=== PATIENT | male | born 1950 | race American Indian/Alaskan Native ===

== ENCOUNTER 2017-01-19 12:38 | Inpatient (IN) | payer MEDICARE, MEDICAID ==
[2017-01-19 12:39] VITALS: BMI 33.9
[2017-01-19] MEDS ORDERED: Sodium Chloride 0.9% 500 ML IV STA (15:18)
[2017-01-19 16:07] LABS: CHLORIDE 88 mmol/L (98-107); SODIUM 129 mmol/L (132-148)
[2017-01-19 16:08] LABS: POTASSIUM 4.7 mmol/L (3.6-5.2)
[2017-01-19 16:10] LABS: ALKALINE PHOSPHATASE 93 U/L (38-126); AST/SGOT 57 U/L (17-59); BILIRUBIN,TOTAL 0.7 mg/dL (0.2-1.3); BLOOD UREA NITROGEN 22 mg/dL (9-20); CARBON DIOXIDE 30 mmol/L (22-30); GFR AFRICAN-AMERICAN > 60; TOTAL PROTEIN 7.8 g/dL (6.3-8.3)
[2017-01-19 16:11] LABS: ALT/SGPT 38 U/L (21-72); BASO # 0.1 K/uL (0.0-0.2); BASO % 1.1 % (0.0-2.0); EOS # 0.3 K/uL (0.0-0.7); EOS % 2.9 % (0.0-4.0); GLUCOSE,RANDOM 343 mg/dL (75-110); LYMPH # 1.6 K/uL (1.0-4.3); LYMPH % 13.2 % (20.0-40.0); MEAN CELL VOLUME 79.2 fL (80.0-94.0); MEAN CORPUSCULAR HEMOGLOBIN 24.5 pg (27.0-31.0); MEAN PLATELET VOLUME 8.9 fL (7.2-11.7); MONO # 1.2 K/uL (0.0-0.8); MONO % 10.3 % (0.0-10.0); WHITE BLOOD COUNT 11.9 K/uL (4.8-10.8)
[2017-01-19] MEDS ORDERED: Dexamethasone 4 mg/1 ml IVP STA (17:00)
[2017-01-19] MEDS ORDERED: Piperacillin/Tazobact 3.375 gm 100 ML IV STA (17:23)
--- NOTE | 2017-01-19 17:25 | CP.PCM.CON ---
History of Present Illness - History of Present Illness History of Present Illness: ACUTE PURULENT SINUSITIS ENT ON BOARD HX COMPLEX COMORBIDITIES INCLUDING PROSTHETIC VALVE IN SITU IV ANTIBIOTICS ORDERED Review of Systems - Constitutional Constitutional: As Per HPI, Fatigue, Malaise - EENT Eyes: absent: As Per HPI, Blind Spots, Blurred Vision, Change in Vision, Decreased Night Vision, Diplopia, Discharge, Dry Eye, Exophthalmos, Floaters, Irritation, Itchy Eyes, Loss of Peripheral Vision, Pain, Photophobia, Requires Corrective Lenses, Sees Flashes, Spots in Vision, Tunnel Vision, Other Visual Disturbances, Loss of Vision, Other Ears: absent: As Per HPI, Decreased Hearing, Ear Discharge, Ear Pain, Tinnitus, Abnormal Hearing, Disequilibrium, Dizziness, Other Nose/Mouth/Throat: absent: As Per HPI, Epistaxis, Nasal Congestion, Nasal Discharge, Nasal Obstruction, Nasal Trauma, Nose Pain, Post Nasal Drip, Sinus Pain, Sinus Pressure, Bleeding Gums, Change in Voice, Dental Pain, Dry Mouth, Dysphagia, Halitosis, Hoarsness, Lip Swelling, Mouth Lesions, Mouth Pain, Odynophagia, Sore Throat, Throat Swelling, Tongue Swelling, Facial Pain, Neck Pain, Neck Mass, Other - Cardiovascular Cardiovascular: absent: As Per HPI, Acrocyanosis, Chest Pain, Chest Pain at Rest , Chest Pain with Activity, Claudication, Diaphoresis, Dyspnea, Dyspnea on Exertion, Edema, Irregular Heart Rhythm, Pain Radiating to Arm/Neck/Jaw, Leg Edema, Leg Ulcers, Lightheadedness, Orthopnea, Palpitations, Paroxysmal Nocturnal Dyspnea, Pedal Edema, Radiating Pain, Rapid Heart Rate, Slow Heart Rate, Syncope, Other - Respiratory Respiratory: absent: As Per HPI, Cough, Dyspnea, Hemoptysis, Dyspnea on Exertion , Wheezing, Snoring, Stridor, Pain on Inspiration, Chest Congestion, Excessive Mucous Production, Change in Mucous Color, Pain with Coughing, Other - Gastrointestinal Gastrointestinal: absent: As Per HPI, Abdominal Pain, Belching, Bloating, Change in Bowel Habits, Change in Stool Character, Coffee Ground Emesis, Constipation, Cramping, Diarrhea, Dyspepsia, Dysphagia, Early Satiety, Excessive Flatus, Fecal Incontinence, Heartburn, Hematemesis, Hematochezia, Loose Stools, Melena, Nausea, Odynophagia, Temesmus, Vomiting, Other - Genitourinary Genitourinary: absent: As Per HPI, Change in Urinary Stream, Difficulty Urinating, Dysuria, Flank Pain, Hematuria, Pyuria, Nocturia, Urinary Incontinence, Urinary Frequency, Urinary Hesitance, Urinary Urgency, Voiding Freq/Small Amts, Freq UTI, Hx Renal/Bladder Calculi, Hx /Renal Surgery, Bladder Distension, Other - Musculoskeletal Musculoskeletal: absent: As Per HPI, Abnormal Gait, Arthralgias, Atrophy, Back Pain, Deformity, Joint Swelling, Limited Range of Motion, Loss of Height, Muscle Cramps, Muscle Weakness, Myalgias, Neck Pain, Numbness, Radiating Pain into Limb, Stiffness, Tingling, Other - Integumentary Integumentary: absent: As Per HPI, Acne, Alopecia, Bleeding Lesions, Change in Hair, Change in Nails, Change in Pigmentation, Changing Lesions, Dry Skin, Erythema, Furuncle, Hirsutism, Lesions, New Lesions, Non-Healing Lesions, Photosensitivity, Pruritus, Rash, Skin Pain, Skin Ulcer, Sores, Striae, Swelling , Unusual Bruising, Wounds, Jaundice, Other - Neurological Neurological: absent: As Per HPI, Abnormal Gait, Abnormal Hearing, Abnormal Movements, Abnormal Speech, Behavioral Changes, Burning Sensations, Confusion, Convulsions, Disequilibrium, Dizziness, Numbness, Focal Weakness, Frequent Falls , Headaches, Lack of Coordination, Loss of Vision, Memory Loss, Paresthesias, Radicular Pain, Restless Legs, Sensory Deficit, Syncope, Tingling, Tremor, Vertigo, Weakness, Other Visual Disturbances, Other - Psychiatric Psychiatric: absent: As Per HPI, Abnormal Sleep Pattern, Anhedonia, Anxiety, Auditory Hallucinations, Behavioral Changes, Change in Appetite, Change in Libido, Confusion, Depression, Difficulty Concentrating, Hallucinations, Homicidal Ideation, Hopelessness, Irritability, Memory Loss, Mood Swings, Panic Attacks, Paranoia, Suicidal Ideation, Visual Hallucinations, Tactile Hallucinations, Other - Endocrine Endocrine: absent: As Per HPI, Change in Body Appearance, Change in Libido, Cold Intolorance, Deepening of Voice, Excessive Sweating, Fatigue, Flushing, Heat Intolorance, Increase in Ring/Shoe/Hat Size, Palpitations, Polydipsia, Polyphagia, Polyuria, Other - Hematologic/Lymphatic Hematologic: absent: As Per HPI, Easy Bleeding, Easy Bruising, Lymphadenopathy, Other Past Patient History - Infectious Disease Hx of Infectious Diseases: None - Past Medical History & Family History Past Medical History?: Yes - Past Social History Smoking Status: Former Smoker - CARDIAC Hx Cardia Arrhythmia: Yes Hx Congestive Heart Failure: Yes Hx Hypercholesterolemia: Yes Hx Hypertension: Yes Hx Pacemaker: Yes (Defibrillator) - HEENT Hx HEENT Problems: No - RENAL Hx Chronic Kidney Disease: No - ENDOCRINE/METABOLIC Hx Endocrine Disorders: Yes Hx Diabetes Mellitus Type 2: Yes - INTEGUMENTARY Hx Dermatological Problems: No Other/Comment: abdominal area with surgical scars - MUSCULOSKELETAL/RHEUMATOLOGICAL Hx Fractures: Yes - GASTROINTESTINAL Hx Gastritis: Yes - PSYCHIATRIC Hx Depression: Yes (denies) 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 AVR/MVR (bioprosth)) Hx Coronary Stent: Yes - ANESTHESIA Hx Anesthesia: Yes Hx Anesthesia Reactions: No Hx Malignant Hyperthermia: No Meds Allergies/Adverse Reactions: Allergies Allergy/AdvReac Type Severity Reaction Status Date / Time iodine Allergy Intermediate SHORTNESS Verified 01/19/17 12:49 OF BREATH shellfish derived Allergy Intermediate ANGIOEDEMA Verified 01/19/17 12:49 milk Allergy Mild SHORTNESS Verified 01/19/17 12:49 OF BREATH Physical Exam - Constitutional Appears: Non-toxic, No Acute Distress, Chronically Ill - Head Exam Head Exam: NORMOCEPHALIC - Eye Exam Eye Exam: absent: Scleral icterus - ENT Exam ENT Exam: Mucous Membranes Dry, Normal External Ear Exam - Neck Exam Neck exam: Negative for: Lymphadenopathy, Thyromegaly - Respiratory Exam Respiratory Exam: Decreased Breath Sounds, Rhonchi - Cardiovascular Exam Cardiovascular Exam: REGULAR RHYTHM, +S1, +S2 - GI/Abdominal Exam GI & Abdominal Exam: Diminished Bowel Sounds, Soft. absent: Tenderness - Rectal Exam Rectal Exam: Deferred - Exam Exam: NORMAL INSPECTION - Extremities Exam Extremities exam: Negative for: calf tenderness, pedal edema - Back Exam Back exam: absent: CVA tenderness (L), CVA tenderness (R) - Neurological Exam Neurological exam: Alert, CN II-XII Intact, Oriented x3, Reflexes Normal - Psychiatric Exam Psychiatric exam: Flat Affect, Normal Mood Results - Vital Signs Recent Vital Signs: Last Vital Signs Temp 97.9 F 01/19/17 12:46 Pulse 72 01/19/17 12:46 Resp 17 01/19/17 12:46 BP 140/81 01/19/17 12:46 Pulse Ox 99 01/19/17 12:46 - Labs Result Diagrams: 01/19/17 15:59 01/21/17 06:45 Labs: Laboratory Results - last 24 hr 01/19/17 15:59 WBC 11.9 H RBC 4.67 Hgb 11.5 L Hct 37.0 MCV 79.2 L MCH 24.5 L MCHC 31.0 L RDW 17.0 H Plt Count 285 D MPV 8.9 Neut % (Auto) 72.5 Lymph % (Auto) 13.2 L Jackson % (Auto) 10.3 H Eos % (Auto) 2.9 Baso % (Auto) 1.1 Neut # 8.6 H Lymph # 1.6 Jackson # 1.2 H Eos # 0.3 Baso # 0.1 PT 11.1 INR 1.0 APTT 35 H Sodium 129 L Potassium 4.7 Chloride 88 L Carbon Dioxide 30 Anion Gap 16 BUN 22 H Creatinine 0.9 Est GFR ( Amer) > 60 Est GFR (Non-Af Amer) > 60 Random Glucose 343 H Calcium 9.0 Total Bilirubin 0.7 AST 57 ALT 38 Alkaline Phosphatase 93 Total Protein 7.8 Albumin 4.0 Globulin 3.8 Albumin/Globulin Ratio 1.0 Assessment & Plan (1) Sinusitis Status: Acute - Assessment and Plan (Free Text) Assessment: check cultures ent eval IV antibiotics
--- NOTE | 2017-01-19 17:44 | C.PDOC ---
History Of Present Illness 66-year-old, presents to the emergency department with complaints of headache. Patient states that two weeks ago, he had a nose bleed, for which he was seen at [facility], where they packed the bleed w/ balloon packing. Patient notes that he developed congestion and headache afterward. On the , pt seen in [facility] ED where he had CT scan, found to have L sinusitis and placed on Augmentin. Comes in today stating still feels congested and a headache. States he went to his termite technician today Dr Montanez, who told him to come to hospital and be seen by ENT/started on Antibx. Patient has a prosthetic heart valve, which was cause for concern. No other complaints at this time. Time Seen by Provider: 01/19/17 13:41 Chief Complaint (Nursing): Headache History Per: Patient History/Exam Limitations: no limitations Onset/Duration Of Symptoms: Days Current Symptoms Are (Timing): Still Present Past Medical History Reviewed: Historical Data, Nursing Documentation, Vital Signs Vital Signs: Last Vital Signs Temp 97.9 F 01/19/17 12:46 Pulse 72 01/19/17 12:46 Resp 17 01/19/17 12:46 BP 140/81 01/19/17 12:46 Pulse Ox 99 01/19/17 17:49 - Medical History PMH: CAD, Cardia Arrhythmia, CHF, CVA (affecting right side of body), Depression (denies), Diabetes, Fractures, Gastritis, HTN, Hypercholesterolemia Denies: Chronic Kidney Disease Surgical History: CABG (BENDER to LAD, SVG to OM1,OM2, SVG to Diag, SVG to PDA. AVR/MVR (bioprosth)), Coronary Stent, Pacemaker (Defibrillator) - [facility] Procedures CORONAR ARTERIOGR-2 CATH (07/19/14) DILATION OF CORONARY ARTERY, ONE SITE, PERCUTANEOUS APPROACH (05/20/16) INSPECTION OF LARYNX, ENDO (04/23/16) LEFT HEART CARDIAC CATH (07/19/14) LT HEART ANGIOCARDIOGRAM (07/19/14) MEASURE OF CARDIAC SAMPL & PRESSURE, L HEART, PERC APPROACH (05/20/16) PLAIN RADIOGRAPHY OF L INT MAMM GRAFT USING OTH CONTRAST (05/20/16) PLAIN RADIOGRAPHY OF LEFT HEART USING OTHER CONTRAST (05/20/16) PLAIN RADIOGRAPHY OF MULT COR A GRAFT USING OTH CONTRAST (05/20/16) Family History: States: Unknown Family Hx - Social History Hx Tobacco Use: No 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 Constitutional: Negative for: Fever, Chills ENT: Positive for: Nose Congestion Cardiovascular: Negative for: Chest Pain Respiratory: Negative for: Shortness of Breath Gastrointestinal: Negative for: Vomiting Musculoskeletal: Negative for: Neck Pain, Back Pain Skin: Negative for: Rash Neurological: Positive for: Headache. Negative for: Weakness, Numbness Physical Exam - Physical Exam Appears: Non-toxic, No Acute Distress Skin: Normal Color, Warm, Dry Head: Atraumatic, Normacephalic, Tenderness (TO LEFT MAXILLARY SINUS AREA) Eye(s): bilateral: Normal Inspection Nose: Normal Oral Mucosa: Moist Lips: Normal Appearing Neck: Normal ROM Cardiovascular: Rhythm Regular Respiratory: Normal Breath Sounds, No Accessory Muscle Use Extremity: Normal ROM Neurological/Psych: Oriented x3, Normal Speech ED Course And Treatment - Laboratory Results Result Diagrams: 01/19/17 15:59 01/19/17 15:59 O2 Sat by Pulse Oximetry: 99 Medical Decision Making Medical Decision Making: Case discussed w/ Dr Grissom ENT, who states he will come to ED to evaluate patient at bedside Dr Grissom presented to the ED to evaluate patient at bedside, states he discussed w/ Dr Moreno, who recommended to admit patient for IV Antibx treatment and decadron IV. case was d/w who accepted patient to her service for admission. Disposition - Disposition Disposition: HOSPITALIZED Disposition Time: 18:53 Condition: FAIR - Clinical Impression Clinical Impression: Sinusitis - Scribe Statement The provider has reviewed the documentation as recorded by the Theodore Cooper All medical record entries made by the Rubiibsushant were at my direction and personally dictated by me. I have reviewed the chart and agree that the record accurately reflects my personal performance of the history, physical exam, medical decision making, and the department course for this patient. I have also personally directed, reviewed, and agree with the discharge instructions and disposition. Decision To Admit - Pt Status Changed To: Hospital Disposition Of: Inpatient - Admit Certification Admit to Inpatient:: After my assessment, the patient will require hospitalization for at least two midnights. This is because of the severity of symptoms shown, intensity of services needed, and/or the medical risk in this patient being treated as an outpatient. - InPatient: Physician Admission Certification: I certify that this patient requires 2 or more midnights of care for the following reason:: patient failed outpatient treatment and will need IV antibiotics. - . Bed Request Type: Regular Admitting Physician: Betty Shine Patient Diagnosis: Sinusitis
[2017-01-19] MEDS ORDERED: Dexamethasone 4 mg/1 ml ONE (17:57)
--- NOTE | 2017-01-19 21:11 | CP.PCM.PN ---
Subjective - Date & Time of Evaluation Date of Evaluation: 01/19/17 Time of Evaluation: 17:00 - Subjective Subjective: see below Objective - Vital Signs/Intake and Output Vital Signs (last 24 hours): Temp Pulse Resp BP Pulse Ox 97.9 F 72 17 140/81 99 01/19/17 12:46 01/19/17 12:46 01/19/17 12:46 01/19/17 12:46 01/19/17 18:54 - Medications Medications: Current Medications Vancomycin/Sodium Chloride (Vancocin) 200 mls @ 166.6 mls/hr IVPB Q12H FLORES Stop: 01/25/17 06:01 Piperacillin Sod/Tazobactam Sod (Zosyn 3.375 Gm Iv Premix) 50 mls @ 200 mls/hr IVPB Q6H FLORES - Labs Labs: PT 11.1 SECONDS (9.7-12.2) 01/19/17 15:59 INR 1.0 01/19/17 15:59 APTT 35 SECONDS (21-34) H 01/19/17 15:59 Assessment and Plan - Assessment and Plan (Free Text) Assessment: 66 y/o male with 1-2 weeks of left facial pain centered over the left maxillary sinus. The right side is not bothering him too much except for congestion. He was seen in the [facility] ER 6 days ago and diagnosed with sinusitis and put on Augmentin. He feels about the same. He saw his medical doctor today, and was told to go to the ER to be admitted for IV abx given his failure on oral abx. He notes feeling no worse that one week ago. He also has congestion in both nasal cavities. He notes having sinus problems his whole life. I am covering for Dr. Rowe, who is away through Sunday. Past Medical History CAD CVA Allergies Iodine Social History non-contributory ROS see HPI Exam awake, alert, comfortable, no distress, non-toxic face symmetric, no swelling left cheek tender oc/op clear, no palate asymmetry or swelling neck soft, no masses, trachea midline b/l ear canals clear, b/l tympanic membranes clear nose: septum deviated to the right left side: dry mucus in the anterior nasal cavity. Nasal endoscopy then performed on the left side shows: minimal mucosal edema; there is mucopus streaming from the left middle meatus; the sphenoethmoid recess is clear; the nasopharynx is clear. under direct rigid endoscopic visualization, a middle- meatal culture of the mucopus was taken using a swab. CT 01/13/17 reviewed: shows left maxillary sinusitis with air in the sinus; the ethmoid and sphenoid sinuses have minimal disease; the frontal sinus is clear; the right-sided sinuses are clear WBC decreased from 13.5 (on 01/13/17) to 11.9 today Impression Acute sinusitis unresponsive to Augmentin Recommend Patient to be admitted for IV abx ID Consult f/u cx Patient would benefit from short course of steroids; would give Prednisone 30, 20, 10 (3 days) starting tomorrow (he received Decadron today in the ER) Afrin x 3 days Nasal saline sprays findings and recommendations d/w patient and ER staff
[2017-01-19] MEDS ORDERED: Piperacillin/Tazobact 3.375 gm 100 ML IVPB ONE (21:48)
[2017-01-20] MEDS: Piperacill/Tazo 3.375gm in Dex 50 ML IVPB SCH ×4 (00:50→17:37)
[2017-01-20] MEDS: Vancomycin 1 gm/NS 200 ml 200 ML IVPB SCH ×2 (06:14→17:38)
[2017-01-20] MEDS: Enoxaparin 40 mg Syringe SC SCH (10:35)
--- NOTE | 2017-01-20 10:55 | HP ---
The patient was seen and examined on 01/19/17 in the Emergency Room CHIEF COMPLAINT: Headache, facial pain. HISTORY OF PRESENT ILLNESS: The patient is a 66-year-old male who came to the Emergency Room Departm ent complaining of headache. The patient states that headache started 2 weeks ago. He had nosebleed for which he was seen in [facility] where they packed the bleed, balloon packing. T he patient noticed that he described congestion and headache afterwards. On 01/13, the patient was se en in in [facility] ED where he had CT scan done, found to have a left sinusitis and placed on A ugmentin; came back on 01/19/17, still feeling congestion and headache. States that he went to his ca rdiologist, Dr. Montanez, who told him to go to the hospital and be seen by the ENT, started on antib iotics. The patient has a prosthetic heart valve which was cause of concern and no other complaints at this time. When I examined the patient in ER still complaining about headache and sinus pain, fa iled outpatient treatment. That is why we admitted the patient for IV antibiotics. PAST MEDICAL HISTORY: As above. Coronary artery disease, cardiac arrhythmias, congestive heart fail ure, CVA affecting the right side of the body. Depression, denies right now. Diabetes mellitus, gas tritis, hypertension, hypercholesterolemia, history of CABG, coronary artery stent, pacemaker, defibr illator. FAMILY HISTORY: Father and mother noncontributory. HABITS: Smoking. 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 Substance abuse no, in recovery 30-40 years. REVIEW OF SYSTEMS: The patient is seen and examined in ER on 01/19/17. No chills. Has nose congesti on, headache and facial pain. No chest pain, no shortness of breath. No nausea, vomiting, or diarrh ea. No fever, no chills. No neck pain, no back pain, no rash. No hematuria, no hematochezia. PHYSICAL EXAMINATION: VITAL SIGNS: Temperature 97.9, pulse 72, respiratory rate 17, blood pressure 140/81. HEENT: Head normocephalic, atraumatic. Eyes: PERRLA. Extraocular muscles intact. Conjunctivae cl ear. SKIN: Normal color, warm, dry. FACE: Left maxillary sinus area tenderness. Mucous membranes moist. NECK: Supple. Normal range of motion. No thyromegaly. LUNGS: Clear to auscultation. HEART: S1, S2 positive. ABDOMEN: Soft. Bowel sounds positive. No organomegaly. EXTREMITIES: No edema, no cyanosis. NEUROLOGIC: The patient is awake, alert, oriented x 3. Normal speech. LABORATORY DATA: White blood cells 11.9, hemoglobin 11.5, hematocrit 37.0, and platelets 285. Sodiu m 129, potassium 4.7, BUN 22, creatinine 0.9, glucose 343. ASSESSMENT AND PLAN: The patient is a 66-year-old male with leukocytosis, anemia, hyponatremia, hype rglycemia, sinusitis, chronic on acute; history of coronary artery disease, cardiac arrhythmias with congestive heart failure, cerebrovascular accident, history of depression, diabetes mellitus, gastrit is, hypertension, hypercholesterolemia, history of coronary artery bypass graft, coronary artery sten ts, pacemaker/defibrillator, failed outpatient treatment. for sinusitis. Seen by David Rowe, especially left-sided maxillary sinusitis. The patient was seen in [facility] and [facility] and doctor's office, took antibiotics as outpatient, now needs IV anti biotics. So, acute sinusitis, unresponsive to Augmentin as per ENT. Infectious disease consult call ed. The patient will get benefit of short course of steroids, so a tapering dose of prednisone given , started from 30. The patient received Decadron in Emergency Room and plan is starting prednisone t santa, Afrin for 3 days, nasal saline sprays. [facility] appreciated. Dr. David Joseph's input. Gastrointestinal and deep venous thrombosis prop hylaxis. Repeat labs. We will follow up. Betty Shine MD cc: [id number] TT: 01/20/2017 10:54:53 or
[2017-01-20] MEDS: Oxymetazoline 0.05% Nasal Spray (30 ml) NS SCH ×3 (12:24→22:22)
[2017-01-20] MEDS ORDERED: Sodium Chloride Nasal 0.65% Soln (30ml) NAS PRN (14:48)
[2017-01-20] MEDS: (Novolin R) Insulin Human Regular 100 units/ml vial SC SCH ×2 (17:38→22:13)
--- NOTE | 2017-01-20 18:41 | CP.PCM.CON ---
History of Present Illness - History of Present Illness History of Present Illness: I was asked to see patient by Dr. Shine. Patient is a 66 year old male with a history of CAD s/p CABG, AVR/MVR, PCI SVG who presents with headache and facial pain. The patient has a previous history of chronic sinus infection and has noted previous epistaxis. The patient has noted subjective fever. Review of Systems - Constitutional Constitutional: absent: As Per HPI, Anorexia, Chills, Daytime Sleepiness, Excessive Sweating, Fatigue, Fever, Frequent Falls, Headache, Increased Appetite , Lethargy, Malaise, Night Sweats, Snoring, Sleep Apnea, Weight Gain, Weight Loss, Weakness, Other - EENT Eyes: absent: As Per HPI, Blind Spots, Blurred Vision, Change in Vision, Decreased Night Vision, Diplopia, Discharge, Dry Eye, Exophthalmos, Floaters, Irritation, Itchy Eyes, Loss of Peripheral Vision, Pain, Photophobia, Requires Corrective Lenses, Sees Flashes, Spots in Vision, Tunnel Vision, Other Visual Disturbances, Loss of Vision, Other Nose/Mouth/Throat: Nasal Congestion, Nasal Discharge, Nasal Obstruction, Post Nasal Drip, Sinus Pain, Sinus Pressure - Cardiovascular Cardiovascular: absent: As Per HPI, Acrocyanosis, Chest Pain, Chest Pain at Rest , Chest Pain with Activity, Claudication, Diaphoresis, Dyspnea, Dyspnea on Exertion, Edema, Irregular Heart Rhythm, Pain Radiating to Arm/Neck/Jaw, Leg Edema, Leg Ulcers, Lightheadedness, Orthopnea, Palpitations, Paroxysmal Nocturnal Dyspnea, Pedal Edema, Radiating Pain, Rapid Heart Rate, Slow Heart Rate, Syncope, Other - Respiratory Respiratory: absent: As Per HPI, Cough, Dyspnea, Hemoptysis, Dyspnea on Exertion , Wheezing, Snoring, Stridor, Pain on Inspiration, Chest Congestion, Excessive Mucous Production, Change in Mucous Color, Pain with Coughing, Other - Gastrointestinal Gastrointestinal: absent: As Per HPI, Abdominal Pain, Belching, Bloating, Change in Bowel Habits, Change in Stool Character, Coffee Ground Emesis, Constipation, Cramping, Diarrhea, Dyspepsia, Dysphagia, Early Satiety, Excessive Flatus, Fecal Incontinence, Heartburn, Hematemesis, Hematochezia, Loose Stools, Melena, Nausea, Odynophagia, Temesmus, Vomiting, Other - Genitourinary Genitourinary: absent: As Per HPI, Change in Urinary Stream, Difficulty Urinating, Dysuria, Flank Pain, Hematuria, Pyuria, Nocturia, Urinary Incontinence, Urinary Frequency, Urinary Hesitance, Urinary Urgency, Voiding Freq/Small Amts, Freq UTI, Hx Renal/Bladder Calculi, Hx /Renal Surgery, Bladder Distension, Other - Musculoskeletal Musculoskeletal: absent: As Per HPI, Abnormal Gait, Arthralgias, Atrophy, Back Pain, Deformity, Joint Swelling, Limited Range of Motion, Loss of Height, Muscle Cramps, Muscle Weakness, Myalgias, Neck Pain, Numbness, Radiating Pain into Limb, Stiffness, Tingling, Other - Integumentary Integumentary: absent: As Per HPI, Acne, Alopecia, Bleeding Lesions, Change in Hair, Change in Nails, Change in Pigmentation, Changing Lesions, Dry Skin, Erythema, Furuncle, Hirsutism, Lesions, New Lesions, Non-Healing Lesions, Photosensitivity, Pruritus, Rash, Skin Pain, Skin Ulcer, Sores, Striae, Swelling , Unusual Bruising, Wounds, Jaundice, Other - Neurological Neurological: absent: As Per HPI, Abnormal Gait, Abnormal Hearing, Abnormal Movements, Abnormal Speech, Behavioral Changes, Burning Sensations, Confusion, Convulsions, Disequilibrium, Dizziness, Numbness, Focal Weakness, Frequent Falls , Headaches, Lack of Coordination, Loss of Vision, Memory Loss, Paresthesias, Radicular Pain, Restless Legs, Sensory Deficit, Syncope, Tingling, Tremor, Vertigo, Weakness, Other Visual Disturbances, Other - Psychiatric Psychiatric: absent: As Per HPI, Abnormal Sleep Pattern, Anhedonia, Anxiety, Auditory Hallucinations, Behavioral Changes, Change in Appetite, Change in Libido, Confusion, Depression, Difficulty Concentrating, Hallucinations, Homicidal Ideation, Hopelessness, Irritability, Memory Loss, Mood Swings, Panic Attacks, Paranoia, Suicidal Ideation, Visual Hallucinations, Tactile Hallucinations, Other - Endocrine Endocrine: absent: As Per HPI, Change in Body Appearance, Change in Libido, Cold Intolorance, Deepening of Voice, Excessive Sweating, Fatigue, Flushing, Heat Intolorance, Increase in Ring/Shoe/Hat Size, Palpitations, Polydipsia, Polyphagia, Polyuria, Other - Hematologic/Lymphatic Hematologic: absent: As Per HPI, Easy Bleeding, Easy Bruising, Lymphadenopathy, Other Past Patient History - Infectious Disease Hx of Infectious Diseases: None - Past Medical History & Family History Past Medical History?: Yes - Past Social History Smoking Status: Former Smoker - CARDIAC Hx Cardia Arrhythmia: Yes Hx Congestive Heart Failure: Yes Hx Hypercholesterolemia: Yes Hx Hypertension: Yes Hx Pacemaker: Yes (Defibrillator) - PULMONARY Hx Respiratory Disorders: No - NEUROLOGICAL HX Cerebrovascular Accident: Yes (Affecting Rt. Side of Body.) Other/Comment: Stroke X2. - HEENT Hx HEENT Problems: No - RENAL Hx Chronic Kidney Disease: No - ENDOCRINE/METABOLIC Hx Endocrine Disorders: Yes Hx Diabetes Mellitus Type 2: Yes - HEMATOLOGICAL/ONCOLOGICAL Hx Blood Disorders: No - INTEGUMENTARY Hx Dermatological Problems: No Other/Comment: abdominal area,Neck,Chest,Rt. Knee with surgical scars - MUSCULOSKELETAL/RHEUMATOLOGICAL Hx Falls: Yes - GASTROINTESTINAL Hx Gastritis: Yes - PSYCHIATRIC Hx Substance Use: No - SURGICAL HISTORY Hx Coronary Artery Bypass Graft: Yes (BENDER to LAD, SVG to OM1,OM2, SVG to Diag, SVG to PDA. AVR/MVR (bioprosth)) Hx Coronary Stent: Yes Other/Comment: Tracheostomy - ANESTHESIA Hx Anesthesia: Yes Hx Anesthesia Reactions: No Hx Malignant Hyperthermia: No Has any member of the family had a problem w/ anesthesia?: No Meds Allergies/Adverse Reactions: Allergies Allergy/AdvReac Type Severity Reaction Status Date / Time iodine Allergy Intermediate SHORTNESS Verified 01/19/17 12:49 OF BREATH shellfish derived Allergy Intermediate ANGIOEDEMA Verified 01/19/17 12:49 milk Allergy Mild SHORTNESS Verified 01/19/17 12:49 OF BREATH - Medications Medications: Current Medications Aspirin (Ecotrin) 81 mg PO DAILY [facility] Last Admin: 01/20/17 10:34 Dose: 81 mg Carvedilol (Coreg) 6.25 mg PO BID [facility] Last Admin: 01/20/17 17:39 Dose: 6.25 mg Enoxaparin Sodium (Lovenox) 40 mg SC DAILY [facility] Last Admin: 01/20/17 10:35 Dose: 40 mg Furosemide (Lasix) 40 mg PO DAILY [facility] Last Admin: 01/20/17 10:34 Dose: 40 mg Gabapentin (Neurontin) 400 mg PO TID [facility] Last Admin: 01/20/17 17:40 Dose: 400 mg Glimepiride (Amaryl) 4 mg PO DAILY [facility] Last Admin: 01/20/17 10:34 Dose: 4 mg Vancomycin/Sodium Chloride (Vancocin) 200 mls @ 166.6 mls/hr IVPB Q12H [facility] Stop: 01/25/17 06:01 Last Admin: 01/20/17 17:38 Dose: 166.6 mls/hr Piperacillin Sod/Tazobactam Sod (Zosyn 3.375 Gm Iv Premix) 50 mls @ 200 mls/hr IVPB Q6H [facility] Last Admin: 01/20/17 17:37 Dose: 200 mls/hr Insulin Human Regular (Novolin R) 0 unit SC ACHS [facility] PRN Reason: Protocol Last Admin: 01/20/17 17:38 Dose: 6 unit Metformin HCl (Glucophage) 1,000 mg PO BID [facility] Last Admin: 01/20/17 17:40 Dose: 1,000 mg Oxymetazoline HCl (Afrin 0.05%) 0 ml NS Q12H [facility] Last Admin: 01/20/17 12:24 Dose: 2 spr Prednisone (Prednisone Tab) 30 mg PO DAILY [facility] Last Admin: 01/20/17 10:34 Dose: 30 mg Rosuvastatin Calcium (Crestor) 10 mg PO HS [facility] Sodium Chloride ([place] Baby Saline 30 Ml) 1 ml CLARENCE Q4H PRN PRN Reason: Sinus symptoms Ticagrelor (Brilinta) 90 mg PO BID [facility] Last Admin: 01/20/17 17:40 Dose: 90 mg Physical Exam - Constitutional Appears: Well - Head Exam Head Exam: NORMAL INSPECTION - Eye Exam Eye Exam: Normal appearance - ENT Exam ENT Exam: Mucous Membranes Moist - Neck Exam Neck exam: Positive for: Normal Inspection - Respiratory Exam Respiratory Exam: NORMAL BREATHING PATTERN - Cardiovascular Exam Cardiovascular Exam: REGULAR RHYTHM - GI/Abdominal Exam GI & Abdominal Exam: Normal Bowel Sounds - Rectal Exam Rectal Exam: Deferred - Extremities Exam Extremities exam: Negative for: pedal edema - Back Exam Back exam: NORMAL INSPECTION - Neurological Exam Neurological exam: Alert - Psychiatric Exam Psychiatric exam: Normal Affect - Skin Skin Exam: Normal Color Results - Vital Signs Recent Vital Signs: Last Vital Signs Temp 98.2 F 01/20/17 15:05 Pulse 77 01/20/17 15:05 Resp 20 01/20/17 15:05 BP 135/82 01/20/17 15:05 Pulse Ox 96 01/20/17 15:05 - Labs Result Diagrams: 01/19/17 15:59 01/19/17 15:59 Labs: Laboratory Results - last 24 hr 01/20/17 01/20/17 01/20/17 06:35 11:51 16:56 POC Glucose (mg/dL) 426 H* 369 H 471 H* - EKG Data EKG Interpreted by: Myself EKG shows normal: Sinus rhythm Assessment & Plan (1) Sinusitis Assessment and Plan: per medical theam Status: Acute (2) CAD (coronary artery disease) of artery bypass graft Assessment and Plan: continue ASA/Brilinta Status: Acute (3) Hypertension Assessment and Plan: blood pressure control Status: Acute
[2017-01-21] MEDS: Piperacill/Tazo 3.375gm in Dex 50 ML IVPB SCH ×4 (00:16→17:52)
[2017-01-21] MEDS: Vancomycin 1 gm/NS 200 ml 200 ML IVPB SCH ×2 (06:26→17:54)
[2017-01-21 07:40] LABS: CHLORIDE 91 mmol/L (98-107)
[2017-01-21 07:41] LABS: SODIUM 133 mmol/L (132-148)
[2017-01-21 07:43] LABS: AST/SGOT 32 U/L (17-59); BILIRUBIN,TOTAL 0.6 mg/dL (0.2-1.3); CARBON DIOXIDE 31 mmol/L (22-30); GFR AFRICAN-AMERICAN > 60
[2017-01-21 07:44] LABS: ALB/GLOB RATIO 1.1 (1.0-2.1); ALKALINE PHOSPHATASE 75 U/L (38-126); ALT/SGPT 35 U/L (21-72); BLOOD UREA NITROGEN 31 mg/dL (9-20); CALCIUM 8.3 mg/dl (8.6-10.4); GLUCOSE,RANDOM 308 mg/dL (75-110); TOTAL PROTEIN 7.3 g/dL (6.3-8.3)
[2017-01-21] MEDS: (Novolin R) Insulin Human Regular 100 units/ml vial SC SCH ×4 (08:05→22:43)
[2017-01-21] MEDS: Enoxaparin 40 mg Syringe SC SCH (10:08)
[2017-01-21] MEDS: Oxymetazoline 0.05% Nasal Spray (30 ml) NS SCH ×2 (10:09→21:45)
--- NOTE | 2017-01-21 10:32 | PN ---
DATE: 01/20/2017 The patient is a 66-year-old male. The patient seen and examined on the bedside , sitting on his bed. was sitting on the bedside. No anorexia. No chills , no fever. No daytime sleepiness. No excessive sweating, no fever. No headache, no dizziness. Complaining about that congestion in his right nostril. The left nostril congestion got better, but right is still there. No hematuria, no hematochezia. PHYSICAL EXAMINATION: VITAL SIGNS: Temperature 98.2, pulse is 77, blood pressure 135/82, respiratory rate 20. HEENT: Head normocephalic, atraumatic. Eyes: PERRLA. Extraocular muscles intact. Conjunctivae clear. Eyelids unremarkable. Nose congested. Mucous membranes moist. Right maxillary sinus is a little bit tender. NECK: Supple. No carotid bruit, no JVD, no thyromegaly. CHEST: Bilaterally symmetrical. HEART: S1, S2 positive. LUNGS: Clear to auscultation. ABDOMEN: Soft. Bowel sounds positive. No organomegaly. EXTREMITIES: No edema, no cyanosis. NEUROLOGIC: The patient is awake, alert, moving all 4 extremities. No focal deficit. MEDICATIONS: Afrin, Amaryl, Brilinta, Coreg, Crestor, Ecotrin, Glucophage, Lasix, Lovenox, Neurontin, NovoLog, prednisone, vancomycin, Zosyn. LABORATORIES: White blood cells 11.9, hemoglobin 11.5, hematocrit 37.0, platelets 285. Sodium 129, potassium 4.7, BUN 22, creatinine 0.9. Glucose 471 , 426, 343. ASSESSMENT AND PLAN: The patient is a 66-year-old male with leukocytosis, anemia, hyponatremia, hypochloremia, increased BUN, uncontrolled diabetes mellitus. Actually, according to patient, he does not have diabetes, he does not want insulin, but I had length of time discussion with the patient, explained him that with infection, sugar can go up and with steroids, sugar can go up. That is why, according to his situation, he can get insulin with sliding scale and I ordered hemoglobin A1c. We can wait for the results to make a decision of diabetes or not. The patient has history of coronary artery disease, status post coronary artery bypass graft, aortic valve replacement/ mitral valve replacement, percutaneous coronary intervention saphenous vein graft. Has facial pain, history of chronic sinus infection, history of epistaxis. Came with acute sinusitis on the top of chronic sinusitis. For chronic coronary artery disease, had bypass graft as per Dr. Montanez. Continue aspirin and Brilinta. Hypertension, blood pressure controlled by the medical team. Discussion done with the patient, the patient's and the nursing staff. The patient has history of congestive heart failure, depression , gastritis, hypercholesterolemia, pacemaker/defibrillator. ENT is on the case. They are giving tapering dose of steroids. Gastrointestinal and deep venous thrombosis prophylaxis. Repeat labs. We will follow up. Betty Shine MD cc: [id number] TT: 01/21/2017 10:32:17 Confirmation # [id number] Dictation # [id number] MTDD
--- NOTE | 2017-01-21 14:24 | CP.PCM.PN ---
Subjective - Date & Time of Evaluation Date of Evaluation: 01/21/17 Time of Evaluation: 10:00 - Subjective Subjective: patient is upset and angry. He expressed anger and frustration with nursing staff. Objective - Vital Signs/Intake and Output Vital Signs (last 24 hours): Temp Pulse Resp BP Pulse Ox 98.1 F 82 20 142/87 98 01/21/17 08:46 01/21/17 12:22 01/21/17 08:46 01/21/17 12:22 01/21/17 12:22 Intake and Output: 01/21/17 01/21/17 06:59 18:59 Intake Total 490 Output Total 350 Balance 140 - Medications Medications: Current Medications Alprazolam (Xanax) 0.5 mg PO TID PRN PRN Reason: Anxiety Aspirin (Ecotrin) 81 mg PO DAILY [facility] Last Admin: 01/21/17 10:07 Dose: 81 mg Carvedilol (Coreg) 6.25 mg PO BID [facility] Last Admin: 01/21/17 10:08 Dose: 6.25 mg Enoxaparin Sodium (Lovenox) 40 mg SC DAILY [facility] Last Admin: 01/21/17 10:08 Dose: 40 mg Furosemide (Lasix) 40 mg PO DAILY [facility] Last Admin: 01/21/17 10:08 Dose: 40 mg Gabapentin (Neurontin) 400 mg PO TID [facility] Last Admin: 01/21/17 14:04 Dose: 400 mg Glimepiride (Amaryl) 4 mg PO DAILY [facility] Last Admin: 01/21/17 10:08 Dose: 4 mg Vancomycin/Sodium Chloride (Vancocin) 200 mls @ 166.6 mls/hr IVPB Q12H [facility] Stop: 01/25/17 06:01 Last Admin: 01/21/17 06:26 Dose: 166.6 mls/hr Piperacillin Sod/Tazobactam Sod (Zosyn 3.375 Gm Iv Premix) 50 mls @ 200 mls/hr IVPB Q6H [facility] Last Admin: 01/21/17 12:30 Dose: 200 mls/hr Insulin Human Regular (Novolin R) 0 unit SC ACHS [facility] PRN Reason: Protocol Last Admin: 01/21/17 12:05 Dose: 4 unit Metformin HCl (Glucophage) 1,000 mg PO BID [facility] Last Admin: 01/21/17 10:06 Dose: 1,000 mg Oxymetazoline HCl (Afrin 0.05%) 0 ml NS Q12H [facility] Last Admin: 01/21/17 10:09 Dose: 1 spr Prednisone (Prednisone Tab) 30 mg PO DAILY [facility] Last Admin: 01/21/17 10:07 Dose: 30 mg Rosuvastatin Calcium (Crestor) 10 mg PO HS [facility] Last Admin: 01/20/17 22:14 Dose: 10 mg Sodium Chloride ([place] Baby Saline 30 Ml) 1 ml CLARENCE Q4H PRN PRN Reason: Sinus symptoms Ticagrelor (Brilinta) 90 mg PO BID [facility] Last Admin: 01/21/17 10:08 Dose: 90 mg - Labs Labs: 01/21/17 06:45 PT 11.1 SECONDS (9.7-12.2) 01/19/17 15:59 INR 1.0 01/19/17 15:59 APTT 35 SECONDS (21-34) H 01/19/17 15:59 - Constitutional Appears: Non-toxic - Head Exam Head Exam: NORMAL INSPECTION - Eye Exam Eye Exam: Normal appearance - ENT Exam ENT Exam: Mucous Membranes Moist - Neck Exam Neck Exam: Full ROM - Respiratory Exam Respiratory Exam: NORMAL BREATHING PATTERN - Cardiovascular Exam Cardiovascular Exam: REGULAR RHYTHM - GI/Abdominal Exam GI & Abdominal Exam: Normal Bowel Sounds - Rectal Exam Rectal Exam: Deferred - Extremities Exam Extremities Exam: absent: Pedal Edema - Back Exam Back Exam: NORMAL INSPECTION - Neurological Exam Neurological Exam: Alert - Psychiatric Exam Psychiatric exam: Normal Affect - Skin Skin Exam: Normal Color Assessment and Plan (1) Sinusitis Assessment & Plan: on IV antibiotics and steroids Status: Acute (2) CAD (coronary artery disease) of artery bypass graft Assessment & Plan: continue Brilinta/ASA Status: Acute (3) Hypertension Assessment & Plan: blood pressure control Status: Acute (4) Diabetes Assessment & Plan: glucose control Status: Acute
--- NOTE | 2017-01-21 16:18 | CP.PCM.PN ---
Subjective - Date & Time of Evaluation Date of Evaluation: 01/21/17 Time of Evaluation: 08:00 - Subjective Subjective: BLOOD AND NASAL SECRETIONS + STAPH MAY NEED ISABEL CONT IV RX Objective - Vital Signs/Intake and Output Vital Signs (last 24 hours): Temp Pulse Resp BP Pulse Ox 98.6 F 73 20 158/95 H 97 01/21/17 15:00 01/21/17 15:00 01/21/17 15:00 01/21/17 15:00 01/21/17 15:00 Intake and Output: 01/21/17 01/21/17 06:59 18:59 Intake Total 490 Output Total 350 Balance 140 - Medications Medications: Current Medications Alprazolam (Xanax) 0.5 mg PO TID PRN PRN Reason: Anxiety Aspirin (Ecotrin) 81 mg PO DAILY [facility] Last Admin: 01/21/17 10:07 Dose: 81 mg Carvedilol (Coreg) 6.25 mg PO BID [facility] Last Admin: 01/21/17 10:08 Dose: 6.25 mg Enoxaparin Sodium (Lovenox) 40 mg SC DAILY [facility] Last Admin: 01/21/17 10:08 Dose: 40 mg Furosemide (Lasix) 40 mg PO DAILY [facility] Last Admin: 01/21/17 10:08 Dose: 40 mg Gabapentin (Neurontin) 400 mg PO TID [facility] Last Admin: 01/21/17 14:04 Dose: 400 mg Glimepiride (Amaryl) 4 mg PO DAILY [facility] Last Admin: 01/21/17 10:08 Dose: 4 mg Vancomycin/Sodium Chloride (Vancocin) 200 mls @ 166.6 mls/hr IVPB Q12H [facility] Stop: 01/25/17 06:01 Last Admin: 01/21/17 06:26 Dose: 166.6 mls/hr Piperacillin Sod/Tazobactam Sod (Zosyn 3.375 Gm Iv Premix) 50 mls @ 200 mls/hr IVPB Q6H [facility] Last Admin: 01/21/17 12:30 Dose: 200 mls/hr Insulin Human Regular (Novolin R) 0 unit SC ACHS [facility] PRN Reason: Protocol Last Admin: 01/21/17 12:05 Dose: 4 unit Metformin HCl (Glucophage) 1,000 mg PO BID [facility] Last Admin: 03/19/17 10:06 Dose: 1,000 mg Oxymetazoline HCl (Afrin 0.05%) 0 ml NS Q12H [facility] Last Admin: 01/21/17 10:09 Dose: 1 spr Prednisone (Prednisone Tab) 30 mg PO DAILY [facility] Last Admin: 01/21/17 10:07 Dose: 30 mg Rosuvastatin Calcium (Crestor) 10 mg PO HS [facility] Last Admin: 01/20/17 22:14 Dose: 10 mg Sodium Chloride ([place] Baby Saline 30 Ml) 1 ml CLARENCE Q4H PRN PRN Reason: Sinus symptoms Ticagrelor (Brilinta) 90 mg PO BID [facility] Last Admin: 01/21/17 10:08 Dose: 90 mg - Labs Labs: 01/21/17 06:45 PT 11.1 SECONDS (9.7-12.2) 01/19/17 15:59 INR 1.0 01/19/17 15:59 APTT 35 SECONDS (21-34) H 01/19/17 15:59 - Constitutional Appears: No Acute Distress, Chronically Ill - Head Exam Head Exam: NORMOCEPHALIC - Eye Exam Eye Exam: absent: Scleral icterus - ENT Exam ENT Exam: Mucous Membranes Dry, Normal External Ear Exam - Neck Exam Neck Exam: absent: Lymphadenopathy - Respiratory Exam Respiratory Exam: Decreased Breath Sounds, Rhonchi - Cardiovascular Exam Cardiovascular Exam: REGULAR RHYTHM, +S1, +S2 - GI/Abdominal Exam GI & Abdominal Exam: Distended, Soft. absent: Tenderness - Rectal Exam Rectal Exam: Deferred - Exam Exam: NORMAL INSPECTION Assessment and Plan (1) Sinusitis Status: Acute (2) Sepsis Status: Acute
--- NOTE | 2017-01-21 19:41 | PN ---
DATE: 01/21/2017 The patient examine at the bedside with Dr. 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 He looks a little bit anxious and according to him he is feeling anxious and a discussion done with him and we will start him on Xanax and will call a psych consult. As per Dr. Montanez the patient had pro blem. According to Dr. Moreno the patient has blood nasal secretions and Staph. He may need T EE. Continue IV antibiotics. Will talk to Dr. Montanez about a ISABEL. PHYSICAL EXAMINATION: VITAL SIGNS: Temperature 98.6, pulse 73, respiratory rate 20, blood pressure 158/95, pulse oximeter 97. HEENT: Head normocephalic, atraumatic. Eyes: PERRLA. Extraocular eye movements are intact. Conju nctivae are clear. Nose patent. Mucous membranes are moist. NECK: Supple. No carotid bruit or thyromegaly. CHEST: Bilateral and symmetrical. HEART: S1, S2 positive. LUNGS: Clear to auscultation. ABDOMEN: Soft. Bowel sounds present. No organomegaly. EXTREMITIES: No edema, no cyanosis. NEUROLOGIC: The patient awake, alert, moving all 4 extremities. No focal deficit. MEDICATIONS: Xanax, Ecotrin, Coreg, Lasix, Neurontin, Amaryl, Zosyn, NovoLog, Glucophage, Afrin, pre dnisone, Crestor, Brilinta. LABORATORY DATA: White blood cell 11.9, hemoglobin 11.5, hematocrit 37.0, platelets 285. Sodium 133 , potassium 4.0, BUN 31, creatinine 1.7, and glucose 363, 340, 294. ASSESSMENT AND PLAN: The patient is a 66-year-old male with leukocytosis, anemia, uncontrolled diab etes mellitus, and hypocalcemia seen by Dr. 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 According to him, maybe the patient needed a ISABEL, but chain mortiser operator is already on the case. The patient has [id number] sinusitis, sepsis. Reviewed Dr. Cecilia Montanez notes. The patient looks upset and angry. He expressed anger and frustration with the nursing staff as per Dr. Montanez. Still getting IV antibiotics and steroids for sinusitis. ENT is on the case and disc ussion done with the ENT doctor, Dr. Rowe. Shankar Rebollar MD cc: [id number] TT: 01/21/2017 19:41:18 Confirmation # [id number] Dictation # [id number]
[2017-01-22] MEDS: Piperacill/Tazo 3.375gm in Dex 50 ML IVPB SCH ×4 (00:14→19:08)
[2017-01-22] MEDS: Vancomycin 1 gm/NS 200 ml 200 ML IVPB SCH (06:13)
[2017-01-22 07:24] LABS: CHLORIDE 93 mmol/L (98-107); SODIUM 135 mmol/L (132-148)
[2017-01-22 07:25] LABS: POTASSIUM 4.4 mmol/L (3.6-5.2)
[2017-01-22 07:27] LABS: GFR AFRICAN-AMERICAN > 60
[2017-01-22 07:28] LABS: BLOOD UREA NITROGEN 24 mg/dL (9-20); CALCIUM 8.5 mg/dl (8.6-10.4); CARBON DIOXIDE 26 mmol/L (22-30); GLUCOSE,RANDOM 267 mg/dL (75-110)
[2017-01-22 07:55] LABS: HEMATOCRIT 37.8 % (35.0-51.0); MEAN CELL VOLUME 80.3 fL (80.0-94.0); MEAN CORPUSCULAR HEMOGLOBIN 25.1 pg (27.0-31.0); MEAN CORPUSCULAR HGB CONC 31.3 g/dL (33.0-37.0); MEAN PLATELET VOLUME 8.2 fL (7.2-11.7); RED CELL DISTRIBUTION WIDTH 16.6 % (11.5-14.5); WHITE BLOOD COUNT 12.4 K/uL (4.8-10.8)
[2017-01-22] MEDS: (Novolin R) Insulin Human Regular 100 units/ml vial SC SCH ×4 (08:51→22:00)
[2017-01-22] MEDS: Oxymetazoline 0.05% Nasal Spray (30 ml) NS SCH ×2 (08:54→21:56)
[2017-01-22] MEDS: Enoxaparin 40 mg Syringe SC SCH (09:11)
--- NOTE | 2017-01-22 12:43 | CP.PCM.PN ---
Subjective - Date & Time of Evaluation Date of Evaluation: 01/22/17 Time of Evaluation: 08:00 - Subjective Subjective: mcduffie sensitive staph in blood and nasal secretions for ISABEL may need OR drainage Objective - Vital Signs/Intake and Output Vital Signs (last 24 hours): Temp Pulse Resp BP Pulse Ox 97.7 F 68 20 164/83 H 97 01/21/17 23:40 01/21/17 23:40 01/21/17 23:40 01/22/17 09:14 01/21/17 23:40 Intake and Output: 01/22/17 01/22/17 06:59 18:59 Intake Total 1150 Balance 1150 - Medications Medications: Current Medications Alprazolam (Xanax) 0.5 mg PO TID PRN PRN Reason: Anxiety Last Admin: 01/21/17 22:51 Dose: 0.5 mg Aspirin (Ecotrin) 81 mg PO DAILY [facility] Last Admin: 01/22/17 09:11 Dose: 81 mg Carvedilol (Coreg) 6.25 mg PO BID [facility] Last Admin: 01/22/17 09:14 Dose: 6.25 mg Enoxaparin Sodium (Lovenox) 40 mg SC DAILY [facility] Last Admin: 01/22/17 09:11 Dose: 40 mg Furosemide (Lasix) 40 mg PO DAILY [facility] Last Admin: 01/22/17 09:14 Dose: 40 mg Gabapentin (Neurontin) 400 mg PO TID [facility] Last Admin: 01/22/17 09:10 Dose: 400 mg Glimepiride (Amaryl) 4 mg PO DAILY [facility] Last Admin: 01/22/17 09:11 Dose: 4 mg Vancomycin/Sodium Chloride (Vancocin) 200 mls @ 166.6 mls/hr IVPB Q12H [facility] Stop: 01/25/17 06:01 Last Admin: 01/22/17 06:13 Dose: 166.6 mls/hr Piperacillin Sod/Tazobactam Sod (Zosyn 3.375 Gm Iv Premix) 50 mls @ 200 mls/hr IVPB Q6H [facility] Last Admin: 01/22/17 12:15 Dose: 200 mls/hr Insulin Human Regular (Novolin R) 0 unit SC ACHS [facility] PRN Reason: Protocol Last Admin: 01/22/17 12:41 Dose: 3 unit Metformin HCl (Glucophage) 1,000 mg PO BID [facility] Last Admin: 01/22/17 09:09 Dose: 1,000 mg Oxymetazoline HCl (Afrin 0.05%) 0 ml NS Q12H [facility] Last Admin: 01/22/17 08:54 Dose: 1 spr Prednisone (Prednisone Tab) 30 mg PO DAILY [facility] Last Admin: 01/22/17 09:10 Dose: 30 mg Rosuvastatin Calcium (Crestor) 10 mg PO HS [facility] Last Admin: 01/21/17 22:42 Dose: 10 mg Sodium Chloride ([place] Baby Saline 30 Ml) 1 ml [facility]ENCE Q4H PRN PRN Reason: Sinus symptoms Ticagrelor (Brilinta) 90 mg PO BID [facility] Last Admin: 01/22/17 09:14 Dose: 90 mg - Labs Labs: 01/22/17 07:02 01/22/17 07:02 PT 11.1 SECONDS (9.7-12.2) 01/19/17 15:59 INR 1.0 01/19/17 15:59 APTT 35 SECONDS (21-34) H 01/19/17 15:59 - Constitutional Appears: Non-toxic, Chronically Ill - Head Exam Head Exam: NORMOCEPHALIC - Eye Exam Eye Exam: absent: Scleral icterus - ENT Exam ENT Exam: Mucous Membranes Dry - Neck Exam Neck Exam: absent: Lymphadenopathy - Respiratory Exam Respiratory Exam: Decreased Breath Sounds, Rhonchi - Cardiovascular Exam Cardiovascular Exam: REGULAR RHYTHM - GI/Abdominal Exam GI & Abdominal Exam: Distended, Soft Assessment and Plan (1) Sinusitis Status: Acute (2) Sepsis Status: Acute
--- NOTE | 2017-01-22 13:39 | CON ---
DATE: 01/22/2017 REASON FOR CONSULTATION: Sinusitis. HISTORY OF PRESENT ILLNESS: This is a 66-year-old male who for the past 2-3 months has been having n seun congestion and sinus pain with some discharge. It is moderate in intensity. It had been on and off. However, recently, it has become more constant. It is on both sides. PAST MEDICAL HISTORY: As noted in the chart by me. MEDICATIONS: As noted in the chart by me. PHYSICAL EXAMINATION: HEAD: Atraumatic, normocephalic. FACE: Good facial movements bilaterally. CONSTITUTIONAL: Well-developed, well-nourished. COMMUNICATION: Communicates very appropriately. EXTERNAL NOSE AND EARS: No masses, no lesions, no erythema, no edema. INTERNAL NOSE: Deviated septum, erythema and edema of the mucosa noted. ORAL CAVITY, OROPHARYNX: No masses, no lesions, no erythema, no edema. LIPS, GUMS: No masses, no lesions, no erythema, no edema. NECK: Supple. THYROID: No thyromegaly, no goiter. LYMPH NODES: No lymphadenopathy of the neck. CT orbit done on a prior ER visit was noted. It revealed sinusitis, mostly on the left side, and mos tly in the maxillary sinuses. However, there was some in the other sinuses too. However, was mostly in the maxillary sinuses on the left. ASSESSMENT: Sinusitis and deviated septum. PLAN: I spoke to the keypunch operators supervisor, Dr. Montanez. He is going to do a transesophageal echo to find o ut if there are any vegetations on the valves. Since the nasal culture and the blood culture are little wing out Staph, presumably the same organism, it is possible that the nasal infection has gone into t he blood and he needs to check to see if that has caused vegetations on the valves. The patient is c urrently on a blood thinner. If it has caused vegetation, then we will have to consider doing a sinu s surgery. If it has not caused vegetation, we will still consider doing sinus surgery and we will s peak to Dr. Moreno regarding the next course of action depending on whether the ISABEL shows vegetations on the valves or not. The patient states that he has been on multiple courses of antibiotics over t he past 2 months; however, has not seen any resolution. Therefore, he is a candidate for surgery. I will also order a platelet function test since he is on a platelet inhibitor to see what his platele ts are like. If he does need surgery, then I need to know if his blood is thin or not. Dagoberto Rowe MD cc: [id number] TT: 01/22/2017 13:38:09 Confirmation # [id number] Dictation # [id number]
--- NOTE | 2017-01-22 14:20 | CT ---
CT scan sinuses 01/22/2017. History: Sinusitis. Contiguous helical/transaxial sections of the maxillofacial skeleton/paranasal sinuses performed in standard fashion employing [employer] navigation. . Comparison made with prior CT scan of the brain and orbits dated 12/17/2016. Radiation dose. Total DLP = 322.43 mGy- cm. Previously noted fluid level within the left maxillary sinus resolved. There is a small focal area of polypoid like mucosal thickening floor left maxillary antrum. Mucosal thickening again noted within the left chamber sphenoid sinus. Tiny fluid level cannot be completely excluded. The remaining paranasal sinuses are well-developed. Both ostiomeatal complexes and sphenoethmoidal recesses are patent. . Hypertrophy of the mucosa along the anterior inferior nasal turbinate. There may be some aerosolized secretions within the left nasal cavity and mild hypertrophy of the anterior nasal mucosa on the left side as well. Clinical correlation with physical exam. Mild deviation of nasal septum from left to right Impression: Interval resolution previously noted fluid level left maxillary antrum with some minor mucosal thickening floor left maxillary antrum. Mucosal thickening left chamber sphenoid sinus with questionable small fluid level. Ostiomeatal complexes and sphenoid ethmoidal recesses are patent. See above discussion for additional findings and details. .
[2017-01-22] MEDS ORDERED: ceFAZolin IV 1 gm in Dextrose 0 ML IVPB ONE (14:48)
[2017-01-22] MEDS ORDERED: Lidocaine 1% w Epi 1:100,000 Inj ONE (14:48)
[2017-01-22] MEDS ORDERED: Oxymetazoline 0.05% Nasal Spray (30 ml) NS ONE (14:48)
[2017-01-22 14:57] LABS: FUNCTIONING PLTS 99 K/uL; PLT BASE COUNT 330 K/uL; PLT(ADP) 231 K/uL
--- NOTE | 2017-01-22 15:10 | PCM.PSYCH ---
Initial Psychiatric Evaluation - Initial Psychiatric Evaluation Type of Admission: Voluntary Legal Status: Capacity Chief Complaint (in patient's own words): "I'm frustrated at how sick i am" History of Present Illness and Precipitating Events: Pt seen, chart reviewed, case discussed with nurse. Pt is a 66yo AA M in a relationship, lives with partner, unemployed on SSD, that was admitted to for sinusitis, psych was consulted on this patient for possible new anxiety. The patient was seen with the team, he was resting comfortably in be and watching tv. He was complaining of his head due to his sinusitis and how bad it had hit him this time. The pt states that he is prone to chronic bouts of sinusitis but that his episode was the worst on that he had had so far. He feels frustrated that the last two months he feels as though his body is giving up on him and he is not sure why. The pt does worry about his health and why this is all happening to him within the last two months. However, the pt expresses a desire to keep living, he states that he is happy with his current partner and wants to get better and go home. He also reports normal sleep and appetite and no changes in the last few months either. The patient does not seem preoccupied internally or seem to overtly concerned about something in particular, he denies having thoughts that cause him anxiety or thoughts that keep him up at night. the patient currently denies hallucinations, delusions, suicidal ideation, insomnia, depression. PMH: HTN, HLD, DM, CHF, CAD PSH: CABG, Cardiac stenting Hospitalizations: Pt reports multiple admissions for drug intoxication in the past, but none for psychiatric problems and not within the last 30 years. Meds: Lasix 40mg, metformin 100mg BID, Neurontin 400mg TID, Brilinta 90mg BID, ASA 81mg, Glimepiride 4mg QD, Crestor 10mg qhs Allergies: iodine, shellfish, milk. NKDA. Social: Denies use of nicotine, etoh, ilicit drugs currently. Remote history of all three 40 years prior. Current Medications: Active Medications Generic Name Dose Route Start Last Admin Trade Name Freq PRN Reason Stop Dose Admin Alprazolam 0.5 mg 01/21/17 11:06 01/21/17 22:51 Xanax PO 0.5 mg TID PRN Administration Anxiety Aspirin 81 mg 01/20/17 10:00 01/22/17 09:11 Ecotrin PO 81 mg DAILY [facility] Administration Carvedilol 6.25 mg 01/20/17 10:00 01/22/17 09:14 Coreg PO 6.25 mg BID FLOR[facility] Administration Enoxaparin Sodium 40 mg 01/20/17 10:15 01/22/17 09:11 Lovenox SC 40 mg DAILY [facility] Administration Furosemide 40 mg 01/20/17 10:00 01/22/17 09:14 Lasix PO 40 mg DAILY [facility] Administration Gabapentin 400 mg 01/20/17 10:00 01/22/17 09:10 Neurontin PO 400 mg TID [facility] Administration Glimepiride 4 mg 01/20/17 10:00 01/22/17 09:11 Amaryl PO 4 mg DAILY [facility] Administration Vancomycin/Sodium Chloride 200 mls @ 166.6 mls/hr 01/20/17 06:00 01/22/17 06:13 Vancocin IVPB 01/25/17 06:01 166.6 mls/hr Q12H [facility] Administration Piperacillin Sod/Tazobactam Sod 50 mls @ 200 mls/hr 01/20/17 00:00 01/22/17 12: 15 Zosyn 3.375 Gm Iv Premix IVPB 200 mls/hr Q6H [facility] Administration Insulin Human Regular 0 unit 01/20/17 16:30 01/22/17 12:41 Novolin R SC 3 unit ACHS [facility] Administration Protocol Metformin HCl 1,000 mg 01/20/17 10:00 01/22/17 09:09 Glucophage PO 1,000 mg BID [facility] Administration Oxymetazoline HCl 0 ml 01/20/17 08:45 01/22/17 08:54 Afrin 0.05% NS 1 spr Q12H [facility] Administration Prednisone 30 mg 01/20/17 10:00 01/22/17 09:10 Prednisone Tab PO 30 mg DAILY [facility] Administration Rosuvastatin Calcium 10 mg 01/20/17 22:00 01/21/17 22:42 Crestor PO 10 mg HS [facility] Administration Sodium Chloride 1 ml 01/20/17 14:48 [place] Baby Saline 30 Ml [facility] Q4H PRN Sinus symptoms Ticagrelor 90 mg 01/20/17 10:00 01/22/17 09:14 Brilinta PO 90 mg BID [facility] Administration Past Psychiatric History - Past Psychiatric History Previous Treatment History: Inpatient Pertinent Medical Hx (Current Medical&Sleep Prob, Allergies): Allergies Allergy/AdvReac Type Severity Reaction Status Date / Time iodine Allergy Intermediate SHORTNESS Verified 01/19/17 12:49 OF BREATH shellfish derived Allergy Intermediate ANGIOEDEMA Verified 01/19/17 12:49 milk Allergy Mild SHORTNESS Verified 01/19/17 12:49 OF BREATH Furosemide [Lasix] 40 mg PO DAILY #30 tab 02/05/15 Gabapentin [Neurontin] 400 mg PO TID 02/05/15 Metformin HCl 1,000 mg PO BID 02/05/15 Carvedilol [Coreg] 6.25 mg PO BID #60 tab 05/24/16 Ticagrelor [Brilinta] 90 mg PO BID #60 tab 05/24/16 Amoxicillin/Potassium Clav [Amoxicillin/Clavulanate Potassium 875 mg-125 ] 1 tab PO Q12 01/20/17 Aspirin [Adult Low Dose Aspirin EC] 81 mg PO DAILY 01/20/17 Glimepiride [Amaryl] 4 mg PO DAILY 01/20/17 Rosuvastatin Calcium 2.5 [Crestor] 10 mg PO HS 01/20/17 Review of Systems - Neurological Neurological: UNREMARKABLE - Psychiatric Psychiatric: UNREMARKABLE Mental Status Examination - Personal Presentation Personal Presentation: Looks stated age - Affect Affect: Blunted - Motor Activity Motor Activity: Calm - Reliability in Providing Information Reliability in Providing Information: Good - Speech Speech: Organized - Mood Mood: Neutral - Formal Thought Process Formal Thought Process: No Impairment - Obsessions/Compulsions Obsessions: No Compulsions: No - Cognitive Functions Orientation: Person, Place, Situation, Time Sensorium: Alert Attention/Concentration: Attentive Abstract Thinking: [place] Judgement: Intact, as evidence by: Insight regarding need for hospitalization Memory: Recent intact, as evidence by: Ability to recall events of the day, Remote intact, as evidenced by: Ability to recall historical events - Strength & Assets Inventory Strength & Assets Inventory: Family support, Life experience, Cooperative - Limitations Limitations: Other (severe cardiac disease) DSM 5 DX - DSM 5 DSM 5 Diagnosis: Primary: generalized anxiety disorder - Recommended/Plan of Treatment Treatment Recommendations and Plan of Treatment: Gen. anxiety disorder supportive therapy Patient psychiatrically stable Prognosis: good with treatment
[2017-01-22] MEDS ORDERED: Phenylephrine 10 mg/ml Inj ONE (16:28)
[2017-01-22] MEDS ORDERED: Lactated Ringer's 1,000 ML IV ONE (16:40)
[2017-01-22] MEDS ORDERED: Lidocaine 4% (Laryng-O-Jet) Kit MM ONE ×2 (16:43→16:49)
[2017-01-22] MEDS ORDERED: Lidocaine Hydrochloride 5 ML INJ ONE (16:55)
[2017-01-22] MEDS ORDERED: Midazolam 2 MG/2 ML VIAL ONE (16:56)
[2017-01-22] MEDS ORDERED: Lidocaine 2% Jelly (Uro-Jet) ONE (16:56)
[2017-01-22] MEDS ORDERED: Etomidate 20 mg/10ml Inj IV ONE (16:56)
[2017-01-22] MEDS ORDERED: HYDROmorphone 0.5 mg/0.5 ml ISec IVP PRN (17:42)
--- NOTE | 2017-01-22 18:14 | CP.PCM.PN ---
Subjective - Date & Time of Evaluation Date of Evaluation: 01/22/17 Time of Evaluation: 08:20 - Subjective Subjective: patient still has nasal congestion. He denies chest pain. micro data noted. Objective - Vital Signs/Intake and Output Vital Signs (last 24 hours): Temp Pulse Resp BP Pulse Ox 98.3 F 69 23 149/79 95 01/22/17 17:31 01/22/17 17:31 01/22/17 17:31 01/22/17 17:31 01/22/17 17:31 Intake and Output: 01/22/17 01/22/17 06:59 18:59 Intake Total 1150 Balance 1150 - Medications Medications: Current Medications Alprazolam (Xanax) 0.5 mg PO TID PRN PRN Reason: Anxiety Last Admin: 01/21/17 22:51 Dose: 0.5 mg Aspirin (Ecotrin) 81 mg PO DAILY [facility] Last Admin: 01/22/17 09:11 Dose: 81 mg Carvedilol (Coreg) 6.25 mg PO BID [facility] Last Admin: 01/22/17 09:14 Dose: 6.25 mg Enoxaparin Sodium (Lovenox) 40 mg SC DAILY [facility] Last Admin: 01/22/17 09:11 Dose: 40 mg Furosemide (Lasix) 40 mg PO DAILY [facility] Last Admin: 01/22/17 09:14 Dose: 40 mg Gabapentin (Neurontin) 400 mg PO TID [facility] Last Admin: 01/22/17 09:10 Dose: 400 mg Glimepiride (Amaryl) 4 mg PO DAILY [facility] Last Admin: 01/22/17 09:11 Dose: 4 mg Hydromorphone HCl (Dilaudid) 0.5 mg IVP Q10M PRN PRN Reason: Pain, moderate (4-7) Stop: 01/22/17 18:13 Piperacillin Sod/Tazobactam Sod (Zosyn 3.375 Gm Iv Premix) 50 mls @ 200 mls/hr IVPB Q6H [facility] Last Admin: 01/22/17 12:15 Dose: 200 mls/hr Insulin Human Regular (Novolin R) 0 unit SC ACHS [facility] PRN Reason: Protocol Last Admin: 01/22/17 12:41 Dose: 3 unit Metformin HCl (Glucophage) 1,000 mg PO BID [facility] Last Admin: 01/22/17 09:09 Dose: 1,000 mg Oxymetazoline HCl (Afrin 0.05%) 0 ml NS Q12H [facility] Last Admin: 01/22/17 08:54 Dose: 1 spr Prednisone (Prednisone Tab) 30 mg PO DAILY [facility] Last Admin: 01/22/17 09:10 Dose: 30 mg Rosuvastatin Calcium (Crestor) 10 mg PO HS [facility] Last Admin: 01/21/17 22:42 Dose: 10 mg Sodium Chloride ([place] Baby Saline 30 Ml) 1 ml [facility] Q4H PRN PRN Reason: Sinus symptoms Ticagrelor (Brilinta) 90 mg PO BID [facility] Last Admin: 01/22/17 09:14 Dose: 90 mg - Labs Labs: 01/22/17 07:02 01/22/17 07:02 PT 11.1 SECONDS (9.7-12.2) 01/19/17 15:59 INR 1.0 01/19/17 15:59 APTT 35 SECONDS (21-34) H 01/19/17 15:59 - Constitutional Appears: Non-toxic, Chronically Ill - Head Exam Head Exam: NORMAL INSPECTION - Eye Exam Eye Exam: Normal appearance - ENT Exam ENT Exam: Mucous Membranes Moist - Neck Exam Neck Exam: Full ROM - Respiratory Exam Respiratory Exam: Decreased Breath Sounds - Cardiovascular Exam Cardiovascular Exam: REGULAR RHYTHM - GI/Abdominal Exam GI & Abdominal Exam: Normal Bowel Sounds - Rectal Exam Rectal Exam: Deferred - Extremities Exam Extremities Exam: Pedal Edema - Back Exam Back Exam: NORMAL INSPECTION - Neurological Exam Neurological Exam: Alert - Psychiatric Exam Psychiatric exam: Normal Affect - Skin Skin Exam: Normal Color Assessment and Plan (1) Sinusitis Assessment & Plan: on IV abx Status: Acute (2) CAD (coronary artery disease) of artery bypass graft Assessment & Plan: stable. will continue Brilinta Status: Acute (3) Hypertension Assessment & Plan: controlled Status: Acute (4) Diabetes Assessment & Plan: will need aggressive control Status: Acute (5) Staphylococcus aureus bacteremia Assessment & Plan: givne history of AVR/MVR, recommend ISABEL for further evaluation. Dr. Uribe will see Status: Acute
[2017-01-23] MEDS: Piperacill/Tazo 3.375gm in Dex 50 ML IVPB SCH ×5 (00:04→23:45)
[2017-01-23 00:16] VITALS: RESP 20
--- NOTE | 2017-01-23 05:30 | PN ---
DATE: 01/22/2017 SUBJECTIVE: The patient seen and examined on the bedside, looks comfortable. No nausea, vomiting, or diarrhea. No hematuria or hematochezia. No fever. No chills. Looks better. The patient sensitive for staph , had nasal congestion. Went for ISABEL. Maybe need OR drainage. ENT is on the case, as per infectious disease, Dr. Moreno. PHYSICAL EXAMINATION: VITAL SIGNS: Temperature 97.7, pulse 68, respirations 20, blood pressure 154/80 , pulse oximetry 97. HEENT: Head normocephalic, atraumatic. Eyes: PERRLA. Extraocular muscles intact. Conjunctivae pink. Eyelids unremarkable. Nose patent. NECK: Supple. No carotid bruit, JVD, or thyromegaly. CHEST: Bilaterally symmetrical. HEART: S1, S2 positive. LUNGS: Clear to auscultation. ABDOMEN: Soft. Bowel sounds present. No organomegaly. EXTREMITIES: No edema. No cyanosis. NEUROLOGIC: The patient is awake, alert, moving all 4 extremities. No focal deficits. MEDICATIONS: Xanax, Ecotrin, Coreg, Lovenox, Lasix, Neurontin, Amaryl, Zosyn, Novolin, Glucophage, prednisone, Crestor. LABORATORY DATA: White blood cells 12.4, hemoglobin 11.8, hematocrit 37.8, and platelets 328. Sodium 137, potassium 4.4, BUN 24, creatinine 1.2, glucose 297. ASSESSMENT AND PLAN: The patient is a 66-year-old male with anemia, leukocytosis, hyperglycemia, seen by the infectious disease, Dr. Moreno, for sinusitis, [id number]. Sepsis, seen by Dr. Cecilia Montanez, catheter finisher and inspector. The patient still has congestion, coronary artery disease, history of coronary artery bypass graft. We will continue Brilinta as per Dr. Montanez, hypertension, diabetes mellitus and need aggressive control, Staphylococcus aureus. Given history of AVR/MVR recommended ISABEL for further evaluation. Seen by psychiatrist, Dr. Liliya Torres. Went for ISABEL to rule out endocarditis done by Dr. Betty Uribe. Results are pending. The patient is seen by Dr. Dagoberto Rowe. Over the weekend, he was away, somebody was covering. I appreciated he came back and started on the case. Sinusitis, mostly on the left side, mostly in maxillary sinus. The patient had deviated septum. Because the nasal culture and blood cultures are showing the same organism, it looks like from nasal, maybe bacteria went to the blood. The patient is currently on a blood thinner, and sinus surgery decision dependents on findings of the ISABEL as per Dr. Rowe. According to the patient, he had multiple courses of antibiotics over the past 2 months; however, has not been any resolution. Therefore, he is a candidate for surgery. Since patient is on platelet inhibitors, Dr. Rowe said he will order platelet function test to see what his platelets are right now. Gastrointestinal, venous thrombosis prophylaxis. Repeat labs. We will follow up. Betty Shine MD cc: [id number] TT: 01/23/2017 05:30:26 Confirmation # [id number] Dictation # [id number] MTDD
[2017-01-23] MEDS: (Novolin R) Insulin Human Regular 100 units/ml vial SC SCH ×4 (07:57→21:13)
--- NOTE | 2017-01-23 10:01 | CON ---
DATE: 01/22/2017 ADDENDUM - second part The patient had a CAT scan done today. Repeat CAT scan revealed almost a complete resolution of the patient's sinusitis. The patient does complain of symptoms; however, the CAT scan is much, much impr lyric. Since the CAT scan is much improved and the sinuses look to be draining appropriately, therefo re, the sinus surgery is not indicated at this point. I have spoken to Dr. Montanez who agreed with the plan. We will continue to give him an antibiotic. Dagoberto Rowe MD cc: [id number] TT: 01/22/2017 17:32:22 Confirmation # [id number] Dictation # [id number] jn
[2017-01-23] MEDS: Enoxaparin 40 mg Syringe SC SCH (10:13)
[2017-01-23] MEDS: Oxymetazoline 0.05% Nasal Spray (30 ml) NS SCH ×2 (10:21→20:45)
--- NOTE | 2017-01-23 12:17 | CP.PCM.PN ---
Subjective - Date & Time of Evaluation Date of Evaluation: 01/23/17 Time of Evaluation: 09:00 - Subjective Subjective: ISABEL was negative no surgery planned need to complete 14 - 21 days iv rx Objective - Vital Signs/Intake and Output Vital Signs (last 24 hours): Temp Pulse Resp BP Pulse Ox 97.4 F L 74 20 151/88 H 100 01/23/17 08:38 01/23/17 08:38 01/23/17 08:38 01/23/17 10:12 01/23/17 08:38 Intake and Output: 01/23/17 01/23/17 06:59 18:59 Intake Total 110 Balance 110 - Medications Medications: Current Medications Alprazolam (Xanax) 0.5 mg PO TID PRN PRN Reason: Anxiety Last Admin: 01/21/17 22:51 Dose: 0.5 mg Aspirin (Ecotrin) 81 mg PO DAILY [facility] Last Admin: 01/23/17 10:11 Dose: 81 mg Carvedilol (Coreg) 6.25 mg PO BID [facility] Last Admin: 01/23/17 10:10 Dose: 6.25 mg Enoxaparin Sodium (Lovenox) 40 mg SC DAILY [facility] Last Admin: 01/23/17 10:13 Dose: 40 mg Furosemide (Lasix) 40 mg PO DAILY [facility] Last Admin: 01/23/17 10:12 Dose: 40 mg Gabapentin (Neurontin) 400 mg PO TID [facility] Last Admin: 01/23/17 10:12 Dose: 400 mg Glimepiride (Amaryl) 4 mg PO DAILY [facility] Last Admin: 01/23/17 10:11 Dose: 4 mg Piperacillin Sod/Tazobactam Sod (Zosyn 3.375 Gm Iv Premix) 50 mls @ 200 mls/hr IVPB Q6H [facility] Last Admin: 01/23/17 05:20 Dose: 200 mls/hr Insulin Human Regular (Novolin R) 0 unit SC ACHS [facility] PRN Reason: Protocol Last Admin: 01/23/17 07:57 Dose: 3 unit Metformin HCl (Glucophage) 1,000 mg PO BID [facility] Last Admin: 01/23/17 10:10 Dose: 1,000 mg Oxymetazoline HCl (Afrin 0.05%) 0 ml NS Q12H [facility] Last Admin: 01/23/17 10:21 Dose: 2 spr Prednisone (Prednisone Tab) 30 mg PO DAILY [facility] Last Admin: 01/23/17 10:11 Dose: 30 mg Rosuvastatin Calcium (Crestor) 10 mg PO HS [facility] Last Admin: 01/22/17 21:57 Dose: 10 mg Sodium Chloride ([place] Baby Saline 30 Ml) 1 ml [facility] Q4H PRN PRN Reason: Sinus symptoms Ticagrelor (Brilinta) 90 mg PO BID [facility] Last Admin: 01/23/17 10:11 Dose: 90 mg - Labs Labs: 01/22/17 07:02 01/22/17 07:02 PT 11.1 SECONDS (9.7-12.2) 01/19/17 15:59 INR 1.0 01/19/17 15:59 APTT 35 SECONDS (21-34) H 01/19/17 15:59 - Constitutional Appears: No Acute Distress, Chronically Ill - Head Exam Head Exam: NORMOCEPHALIC - Eye Exam Eye Exam: PERRL. absent: Scleral icterus - ENT Exam ENT Exam: Mucous Membranes Dry - Neck Exam Neck Exam: absent: Lymphadenopathy - Respiratory Exam Respiratory Exam: Decreased Breath Sounds, Rhonchi - Cardiovascular Exam Cardiovascular Exam: REGULAR RHYTHM, +S1, +S2 - GI/Abdominal Exam GI & Abdominal Exam: Distended, Soft. absent: Tenderness - Rectal Exam Rectal Exam: Deferred - Exam Exam: NORMAL INSPECTION - Extremities Exam Extremities Exam: absent: Calf Tenderness, Pedal Edema - Back Exam Back Exam: absent: CVA tenderness (L), CVA tenderness (R) - Neurological Exam Neurological Exam: Alert, Awake, Oriented x3 Assessment and Plan (1) Sinusitis Status: Acute (2) Sepsis Status: Acute
--- NOTE | 2017-01-23 14:33 | CP.PCM.PN ---
Subjective - Date & Time of Evaluation Date of Evaluation: 01/23/17 Time of Evaluation: 14:31 - Subjective Subjective: PT SEEN BY DR LAZARO TODAY, PT WILL NEED IV ABX 14-[address] LAZARO, I SPOKE TO DR NEAL REGARDING CLINICAL EDUCATOR IV ABX RECOMMENDATION PER TEJAS, PICC LINE AND [place] EVAL PER HER, PT CAN BE D/C TO [place] IF CLEARED BY DR LAZARO AND DR MCKEON. . NO FURTHER ORDERS. Objective - Vital Signs/Intake and Output Vital Signs (last 24 hours): Temp Pulse Resp BP Pulse Ox 97.4 F L 74 20 151/88 H 100 01/23/17 08:38 01/23/17 08:38 01/23/17 08:38 01/23/17 10:12 01/23/17 08:38 Intake and Output: 01/23/17 01/23/17 06:59 18:59 Intake Total 110 Balance 110 - Medications Medications: Current Medications Alprazolam (Xanax) 0.5 mg PO TID PRN PRN Reason: Anxiety Last Admin: 01/21/17 22:51 Dose: 0.5 mg Aspirin (Ecotrin) [address] [facility] Last Admin: 01/23/17 10:11 Dose: 81 mg Carvedilol (Coreg) 6.[address] [facility] Last Admin: 01/23/17 10:10 Dose: 6.25 mg Enoxaparin Sodium (Lovenox) [address] [facility] Last Admin: 01/23/17 10:13 Dose: 40 mg Furosemide (Lasix) [address] [facility] Last Admin: 01/23/17 10:12 Dose: 40 mg Gabapentin (Neurontin) [address] [facility] Last Admin: 01/23/17 13:14 Dose: 400 mg Glimepiride (Amaryl) [address] [facility] Last Admin: 01/23/17 10:11 Dose: 4 mg Piperacillin Sod/Tazobactam Sod (Zosyn 3.375 Gm Iv Premix) 50 mls @ 200 mls/hr IVPB Q6H [facility] Last Admin: 01/23/17 12:24 Dose: 200 mls/hr Insulin Human Regular (Novolin R) 0 unit SC ACHS [facility] PRN Reason: Protocol Last Admin: 01/23/17 12:23 Dose: 4 unit Metformin HCl (Glucophage) 1,[address] [facility] Last Admin: 01/23/17 10:10 Dose: 1,000 mg Oxymetazoline HCl (Afrin 0.05%) 0 ml NS Q12H [facility] Last Admin: 01/23/17 10:21 Dose: 2 spr Prednisone (Prednisone Tab) 30 mg PO DAILY [facility] Last Admin: 01/23/17 10:11 Dose: 30 mg Rosuvastatin Calcium (Crestor) [address] [facility] Last Admin: 01/22/17 21:57 Dose: 10 mg Sodium Chloride ([place] Baby Saline 30 Ml) 1 ml [facility] Q4H PRN PRN Reason: Sinus symptoms Ticagrelor (Brilinta) [address] [facility] Last Admin: 01/23/17 10:11 Dose: 90 mg - Labs Labs: 01/22/17 07:02 01/22/17 07:02 PT 11.1 SECONDS (9.7-12.2) 01/19/17 15:59 INR 1.0 01/19/17 15:59 APTT 35 SECONDS (21-34) H 01/19/17 15:59
--- NOTE | 2017-01-23 18:31 | CP.PCM.PN ---
Subjective - Date & Time of Evaluation Date of Evaluation: 01/23/17 Time of Evaluation: 18:27 - Subjective Subjective: Congestion persisten, no headaches. Congestion is on both sides, constant, moderate and not changed. head: atraumatic face: good movements const: well fed com: communicates well external nose and ears: no masses nose: deviated septum, erythema and edema of mucosa bilateral oc/op: no masses, no lesions lips/gums: no masses, no lesions neck: supple lymph: no lad thyroid: no goiter a/p: sinusitis improving deviated septum no sinus surgery needed at this time since symptoms improving and ct shows improvement continue antibiotics as per ID Objective - Vital Signs/Intake and Output Vital Signs (last 24 hours): Temp Pulse Resp BP Pulse Ox 97.8 F 75 20 136/86 96 01/23/17 16:00 01/23/17 17:21 01/23/17 16:00 01/23/17 16:00 01/23/17 16:00 Intake and Output: 01/23/17 01/23/17 06:59 18:59 Intake Total 110 Balance 110 - Medications Medications: Current Medications Alprazolam (Xanax) 0.5 mg PO TID PRN PRN Reason: Anxiety Last Admin: 01/21/17 22:51 Dose: 0.5 mg Aspirin (Ecotrin) 81 mg PO DAILY [facility] Last Admin: 01/23/17 10:11 Dose: 81 mg Carvedilol (Coreg) 6.25 mg PO BID [facility] Last Admin: 01/23/17 17:45 Dose: 6.25 mg Enoxaparin Sodium (Lovenox) 40 mg SC DAILY [facility] Last Admin: 01/23/17 10:13 Dose: 40 mg Furosemide (Lasix) 40 mg PO DAILY [facility] Last Admin: 01/23/17 10:12 Dose: 40 mg Gabapentin (Neurontin) 400 mg PO TID [facility] Last Admin: 01/23/17 13:14 Dose: 400 mg Glimepiride (Amaryl) 4 mg PO DAILY [facility] Last Admin: 01/23/17 10:11 Dose: 4 mg Piperacillin Sod/Tazobactam Sod (Zosyn 3.375 Gm Iv Premix) 50 mls @ 200 mls/hr IVPB Q6H [facility] Last Admin: 01/23/17 12:24 Dose: 200 mls/hr Insulin Human Regular (Novolin R) 0 unit SC ACHS [facility] PRN Reason: Protocol Last Admin: 01/23/17 17:11 Dose: 5 unit Metformin HCl (Glucophage) 1,000 mg PO BID [facility] Last Admin: 01/23/17 17:45 Dose: 1,000 mg Oxymetazoline HCl (Afrin 0.05%) 0 ml NS Q12H [facility] Last Admin: 01/23/17 10:21 Dose: 2 spr Prednisone (Prednisone Tab) 30 mg PO DAILY [facility] Last Admin: 01/23/17 10:11 Dose: 30 mg Rosuvastatin Calcium (Crestor) 10 mg PO HS [facility] Last Admin: 01/22/17 21:57 Dose: 10 mg Sodium Chloride ([place] Baby Saline 30 Ml) 1 ml CLARENCE Q4H PRN PRN Reason: Sinus symptoms Ticagrelor (Brilinta) 90 mg PO BID [facility] Last Admin: 01/23/17 10:11 Dose: 90 mg - Labs Labs: 01/22/17 07:02 01/22/17 07:02 PT 11.1 SECONDS (9.7-12.2) 01/19/17 15:59 INR 1.0 01/19/17 15:59 APTT 35 SECONDS (21-34) H 01/19/17 15:59
[2017-01-23] MEDS ORDERED: Enoxaparin 40 mg Syringe SC SCH (23:20)
--- NOTE | 2017-01-24 04:37 | PN ---
DATE: 01/23/2017 SUBJECTIVE: The patient is a 66-year-old male. The patient is seen and examined at the bedside, fee shaina hot. As per him, bleeding from the nose, still congested. No headache. Moderate pain in the s inuses. No nausea, vomiting, or diarrhea. No hematuria or hematochezia. No chest pain or palpitati ons. PHYSICAL EXAMINATION: VITAL SIGNS: Temperature 97.8, pulse 75, respirations 20, blood pressure 136/86, pulse oximetry 96. HEENT: Normocephalic, atraumatic. EYES: PERRLA, extraocular muscles intact, conjunctivae pink. Eyelids: Unremarkable. Nose is paten t. No masses. Deviated septum, erythema, edema to the mucosa of the nose bilaterally. No masses or lesions. Mucous membranes are moist. NECK: Supple. No carotid bruit, JVD, or thyromegaly. CHEST: Bilaterally symmetrical. HEART: S1, S2 positive. LUNGS: Clear to auscultation. ABDOMEN: Soft. Bowel sounds present. No organomegaly. EXTREMITIES: No edema, no cyanosis. NEUROLOGIC: The patient is awake, alert, moving all 4 extremities. No focal deficits. MEDICATIONS: Xanax, Ecotrin, Coreg, Lovenox, Lasix, Neurontin, Amaryl, Zosyn, Novolin, Glucophage, A frin, prednisone, Crestor, Brilinta. LABORATORY DATA: White blood cells 12.4, hemoglobin 11.8, hematocrit 37.8, platelets 328. Sodium 13 5, potassium 4.4, BUN 24, creatinine 1.0, glucose 276. ASSESSMENT AND PLAN: The patient is a 66-year-old male with anemia, leukocytosis, hyperglycemia, has sinusitis, improving, diabetes, atrial septum. No neurosurgery needed at this time, as his symptoms are improving and CT scan shows improvement. As per ENT, Dr. Rowe. Continue new antibiotics as pe r ID. Appreciate you, Dr. Rowe, for input. The plan is to put a PICC line and x-ray evaluation. e patient is seen by Dr. Jose Moreno. TE was negative. No surgery planned. Needs to complete 14-21 days of IV antibiotics. Waiting for PICC line. As soon as PICC line is done, we will get some rehab. Gastrointestinal and deep vein thrombosis prophylaxis. The patient has history of coronary artery disease, congestive heart failure. Will continue Brilinta, Has history of hypertension, diab etes mellitus. Needs aggressive control of diabetes. We will follow up. Betty Shine MD cc: [id number] TT: 01/24/2017 04:37:00 Confirmation # [id number] Dictation # [id number]
[2017-01-24] MEDS: Piperacill/Tazo 3.375gm in Dex 50 ML IVPB SCH ×3 (05:35→17:19)
[2017-01-24] MEDS: (Novolin R) Insulin Human Regular 100 units/ml vial SC SCH ×4 (07:59→16:30)
[2017-01-24] MEDS: Oxymetazoline 0.05% Nasal Spray (30 ml) NS SCH (08:00)
--- NOTE | 2017-01-24 14:24 | RAD ---
HISTORY: verify right PICC COMPARISON: Comparison is made to the previous study dated 12/07/2016 FINDINGS: LUNGS: No significant interval change in the lungs. PLEURA: No significant pleural effusion identified, no pneumothorax apparent. CARDIOVASCULAR: Mild cardiomegaly. Left-sided pacemaker is again seen in place. OSSEOUS STRUCTURES: No significant abnormalities. VISUALIZED UPPER ABDOMEN: Normal. OTHER FINDINGS: Interval insertion of right-sided PICC line with the tip is seen overlying the right mediastinum likely at the SVC right atrium junction. IMPRESSION: No active disease. Appropriate position of the PICC line with the tip is likely at the SVC right atrium junction.
[2017-01-24 16:43] VITALS: BP 153/86; PULSE 75; TEMP 97.7; O2SAT 97
--- NOTE | 2017-01-24 17:45 | PCM.HF ---
Heart Failure Core Measure - Heart Failure Ejection Fraction: Less Than 40 % (EF 35%) SWATHI Inhibitor Prescribed: Yes Beta-Coretta Prescribed: Carvedilol Angiotensin II Receptor Coretta Prescribed: No Contraindication/Reason for not providing: ON SWATHI AnticoagulationTherapy for Atrial Fibrillation/Atrialflutter: No Contraindication/Reason for not providing: NO AFIB
--- NOTE | 2017-01-24 17:51 | CP.PCM.PN ---
Subjective - Date & Time of Evaluation Date of Evaluation: 01/24/17 Time of Evaluation: 08:00 - Subjective Subjective: iv rx in progress for ADELE Objective - Vital Signs/Intake and Output Vital Signs (last 24 hours): Temp Pulse Resp BP Pulse Ox 97.7 F 75 20 153/86 H 97 01/24/17 16:00 01/24/17 16:00 01/24/17 16:00 01/24/17 16:00 01/24/17 16:00 Intake and Output: 01/24/17 01/24/17 06:59 18:59 Intake Total 340 410 Balance 340 410 - Medications Medications: Current Medications Alprazolam (Xanax) 0.5 mg PO TID PRN PRN Reason: Anxiety Last Admin: 01/21/17 22:51 Dose: 0.5 mg Aspirin (Ecotrin) 81 mg PO DAILY [facility] Last Admin: 01/24/17 09:36 Dose: 81 mg Carvedilol (Coreg) 6.25 mg PO BID [facility] Last Admin: 01/24/17 17:22 Dose: 6.25 mg Furosemide (Lasix) 40 mg PO DAILY [facility] Last Admin: 01/24/17 09:36 Dose: 40 mg Gabapentin (Neurontin) 400 mg PO TID [facility] Last Admin: 01/24/17 17:26 Dose: 400 mg Glimepiride (Amaryl) 4 mg PO BIDAC [facility] Last Admin: 01/24/17 16:30 Dose: 4 mg Piperacillin Sod/Tazobactam Sod (Zosyn 3.375 Gm Iv Premix) 50 mls @ 200 mls/hr IVPB Q6H [facility] Last Admin: 01/24/17 17:19 Dose: 200 mls/hr Insulin Human Regular (Novolin R) 0 unit SC ACHS [facility] PRN Reason: Protocol Last Admin: 01/24/17 16:30 Dose: 8 unit Metformin HCl (Glucophage) 1,000 mg PO BID [facility] Last Admin: 01/24/17 17:22 Dose: 1,000 mg Oxymetazoline HCl (Afrin 0.05%) 0 ml NS Q12H [facility] Last Admin: 01/24/17 08:00 Dose: 2 spr Prednisone (Prednisone Tab) 20 mg PO DAILY [facility] Rosuvastatin Calcium (Crestor) 10 mg PO HS [facility] Last Admin: 03/21/17 21:14 Dose: 10 mg Sodium Chloride ([place] Baby Saline 30 Ml) 1 ml [facility]ENCE Q4H PRN PRN Reason: Sinus symptoms Ticagrelor (Brilinta) 90 mg PO BID [facility] Last Admin: 01/24/17 17:26 Dose: 90 mg - Labs Labs: 01/22/17 07:02 01/22/17 07:02 PT 11.1 SECONDS (9.7-12.2) 01/19/17 15:59 INR 1.0 01/19/17 15:59 APTT 35 SECONDS (21-34) H 01/19/17 15:59 - Constitutional Appears: Non-toxic, Chronically Ill - Head Exam Head Exam: NORMOCEPHALIC - Eye Exam Eye Exam: absent: Scleral icterus - ENT Exam ENT Exam: Mucous Membranes Dry, Normal External Ear Exam - Neck Exam Neck Exam: absent: Lymphadenopathy - Respiratory Exam Respiratory Exam: Decreased Breath Sounds, Clear to Ausculation Bilateral - Cardiovascular Exam Cardiovascular Exam: REGULAR RHYTHM, +S1, +S2 - GI/Abdominal Exam GI & Abdominal Exam: Distended, Soft Assessment and Plan (1) Sinusitis Status: Acute (2) Sepsis Status: Acute
== END 2017-01-24 18:15 | DRG 872 ==
LOC: C.ER 12:38 → C.9E 18:54 → C.6T 21:44 → C.3T 01-23 13:47
PROVIDERS: ADMIT Internal Medicine; ATTEND Internal Medicine
PROC: B246ZZ4 Ultrasonography of Right and Left Heart, Transesophageal (ICD-10-PCS; principal; 2017-01-23)
PROC: 02HV33Z Insertion of Infusion Device into Superior Vena Cava, Percutaneous Approach (ICD-10-PCS; 2017-01-24)
DX: A41.01 Sepsis due to Methicillin susceptible Staphylococcus aureus (principal); J01.01 Acute recurrent maxillary sinusitis; I11.0 Hypertensive heart disease with heart failure; E87.8 Other disorders of electrolyte and fluid balance, not elsewhere classified; I50.9 Heart failure, unspecified; E87.1 Hypo-osmolality and hyponatremia; E11.65 Type 2 diabetes mellitus with hyperglycemia; J32.0 Chronic maxillary sinusitis; I25.10 Atherosclerotic heart disease of native coronary artery without angina pectoris; F41.1 Generalized anxiety disorder; J34.2 Deviated nasal septum; D64.9 Anemia, unspecified; E83.51 Hypocalcemia; Z95.2 Presence of prosthetic heart valve; Z95.1 Presence of aortocoronary bypass graft; Z95.810 Presence of automatic (implantable) cardiac defibrillator; Z95.5 Presence of coronary angioplasty implant and graft; Z88.8 Allergy status to other drugs, medicaments and biological substances; Z91.011 Allergy to milk products; Z91.013 Allergy to seafood; Z79.84 Long term (current) use of oral hypoglycemic drugs

== ENCOUNTER 2017-02-20 01:23 | Inpatient (IN) | payer MEDICARE, MEDICAID ==
[2017-02-20 01:23] VITALS: BMI 33.9
--- NOTE | 2017-02-20 01:32 | C.PDOC ---
History Of Present Illness pt developed spontaneous nasal bleeding. has not stopped after 10 min of continuous pressure. No cp or palpitations Time Seen by Provider: 02/20/17 01:32 History Per: Patient History/Exam Limitations: None Onset/Duration Of Symptoms: Mins Current Symptoms Are (Timing): Still Present Anticoagulant/Antiplatlet Use?: Yes Recent Aspirin Use: Yes (Last Taken) Past Medical History Reviewed: Historical Data, Nursing Documentation, Vital Signs Vital Signs: Last Vital Signs Temp 98.8 F 02/20/17 01:35 Pulse 80 02/20/17 01:35 Resp 20 02/20/17 01:35 BP 128/89 02/20/17 01:35 Pulse Ox 95 02/20/17 02:17 - Medical History PMH: CAD, Cardia Arrhythmia, CHF, CVA (affecting right side of body), Depression (denies), Diabetes, Fractures, Gastritis, HTN, Hypercholesterolemia Denies: Chronic Kidney Disease Surgical History: CABG (BENDER to LAD, SVG to OM1,OM2, SVG to Diag, SVG to PDA. AVR/MVR (bioprosth)), Coronary Stent, Pacemaker (Defibrillator) - [facility] Procedures CORONAR ARTERIOGR-2 CATH (07/19/14) DILATION OF CORONARY ARTERY, ONE SITE, PERCUTANEOUS APPROACH (05/20/16) INSERTION OF INFUSION DEV INTO SUP VENA CAVA, PERC APPROACH (01/19/17) INSPECTION OF LARYNX, ENDO (04/23/16) LEFT HEART CARDIAC CATH (07/19/14) LT HEART ANGIOCARDIOGRAM (07/19/14) MEASURE OF CARDIAC SAMPL & PRESSURE, L HEART, PERC APPROACH (05/20/16) PLAIN RADIOGRAPHY OF L INT MAMM GRAFT USING OTH CONTRAST (05/20/16) PLAIN RADIOGRAPHY OF LEFT HEART USING OTHER CONTRAST (05/20/16) PLAIN RADIOGRAPHY OF MULT COR A GRAFT USING OTH CONTRAST (05/20/16) ULTRASONOGRAPHY OF RIGHT AND LEFT HEART, TRANSESOPHAGEAL (01/19/17) Family History: States: No Known Family Hx - Social History Hx Tobacco Use: No Hx Alcohol Use: No 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) - Immunization History Hx Tetanus Toxoid Vaccination: Yes Hx Influenza Vaccination: No Hx Pneumococcal Vaccination: Yes Review Of Systems Constitutional: Negative for: Fever, Chills ENT: Positive for: Nose Congestion, Other (epistaxis) Cardiovascular: Negative for: Chest Pain Respiratory: Negative for: Shortness of Breath Gastrointestinal: Negative for: Nausea, Vomiting, Abdominal Pain Skin: Negative for: Rash Physical Exam - Physical Exam Appears: Non-toxic, In Acute Distress Skin: Warm, Dry Head: Atraumatic Nose: Epistaxis (r nare, large clots) Oral Mucosa: Dry Throat: No Erythema, Other (blood from post nasal bleed) Chest: Symmetrical Gastrointestinal/Abdominal: Soft, No Tenderness Extremity: No Tenderness Extremity: Bilateral: Atraumatic ED Course And Treatment - Laboratory Results Result Diagrams: 02/20/17 02:12 02/20/17 02:12 O2 Sat by Pulse Oximetry: 95 Pulse Ox Interpretation: Normal Progress Note: placed 7.5 cm rhino rocket r nare. bleeding subsided. Pt tolerated the procedure well Disposition Discussed With : Betty Shine Comment: accepted the pt on her service and took over the care at 2:15AM Doctor Will See Patient In The: Hospital Counseled Patient/Family Regarding: Studies Performed, Diagnosis - Disposition Disposition: HOSPITALIZED Disposition Time: 01:32 Condition: FAIR - POA Present On Arrival: Poor Glycemic Control - Clinical Impression Clinical Impression: Acute posterior epistaxis, Hyperglycemia Decision To Admit - Pt Status Changed To: Hospital Disposition Of: Inpatient - Admit Certification Admit to Inpatient:: After my assessment, the patient will require hospitalization for at least two midnights. This is because of the severity of symptoms shown, intensity of services needed, and/or the medical risk in this patient being treated as an outpatient. - InPatient: Physician Admission Certification: I certify that this patient requires 2 or more midnights of care for the following reason:: After my assessment, the patient will require hospitalization for at least two midnights. This is because of the severity of symptoms shown, intensity of services needed, and/or the medical risk in this patient being treated as an outpatient. - . Bed Request Type: Regular Admitting Physician: Betty Shine Patient Diagnosis: Acute posterior epistaxis
[2017-02-20 02:15] LABS: BASO % 0.2 % (0.0-2.0); EOS # 0.1 K/uL (0.0-0.7); MEAN CORPUSCULAR HEMOGLOBIN 24.7 pg (27.0-31.0)
[2017-02-20 02:23] LABS: CHLORIDE 95 mmol/L (98-107)
[2017-02-20 02:24] LABS: SODIUM 135 mmol/L (132-148)
[2017-02-20 02:26] LABS: ALB/GLOB RATIO 1.3 (1.0-2.1); BILIRUBIN,TOTAL 0.6 mg/dL (0.2-1.3); CARBON DIOXIDE 25 mmol/L (22-30); GFR AFRICAN-AMERICAN > 60; TOTAL PROTEIN 7.2 g/dL (6.3-8.3)
[2017-02-20 02:27] LABS: ALKALINE PHOSPHATASE 55 U/L (38-126); ALT/SGPT 50 U/L (21-72); AST/SGOT 46 U/L (17-59); BLOOD UREA NITROGEN 40 mg/dL (9-20); CALCIUM 9.2 mg/dl (8.6-10.4)
[2017-02-20] MEDS ORDERED: Sodium Chloride 0.9% 1,000 ML ONE (02:32)
[2017-02-20 02:41] LABS: EOS % 0.6 % (0.0-4.0); HEMATOCRIT 41.4 % (35.0-51.0); INR 0.9; LYMPH # 1.6 K/uL (1.0-4.3); LYMPH % 10.9 % (20.0-40.0); MEAN CELL VOLUME 83.3 fL (80.0-94.0); MEAN CORPUSCULAR HGB CONC 29.7 g/dL (33.0-37.0); MEAN PLATELET VOLUME 9.3 fL (7.2-11.7); MONO # 0.8 K/uL (0.0-0.8); MONO % 5.6 % (0.0-10.0); RED CELL DISTRIBUTION WIDTH 19.1 % (11.5-14.5); WHITE BLOOD COUNT 14.9 K/uL (4.8-10.8)
[2017-02-20 02:54] LABS: GLUCOSE,RANDOM 466 mg/dL (75-110)
[2017-02-20] MEDS ORDERED: (Novolin R) Insulin Human Regular 100 units/ml vial IV ONE (02:56)
[2017-02-20] MEDS ORDERED: (Novolin R) Insulin Human Regular 100 units/ml vial ONE (03:20)
[2017-02-20] MEDS: Sodium Chloride 0.9% 1,000 ML IV SCH ×2 (03:31→14:58)
[2017-02-20 05:00] VITALS: RESP 20
[2017-02-20] MEDS: Insulin Detemir 100 units/ml Vial (Levemir) SC SCH (10:22)
[2017-02-20] MEDS: Piperacill/Tazo 3.375gm in Dex 50 ML IVPB SCH ×2 (11:00→17:25)
[2017-02-20] MEDS: (Novolin R) Insulin Human Regular 100 units/ml vial SC SCH ×3 (12:23→21:24)
--- NOTE | 2017-02-20 12:56 | CON ---
DATE: 02/20/2017 REASON FOR CONSULTATION: Epistaxis. HISTORY OF PRESENT ILLNESS: This 66-year-old male who is on blood thinners, began having right epist axis yesterday. It was moderate in intensity, constant and on the right. The patient presented to [facility] Emergency Room and had his nose packed with a Rhinorocket. The patient has not bled since. PAST MEDICAL HISTORY: As noted in the chart by me. MEDICATIONS: As noted in the chart by me. It should be noted that the blood thinners are being held now. PHYSICAL EXAMINATION: HEAD: Atraumatic, normocephalic. FACE: Good facial movements bilaterally. CONSTITUTIONAL: Well-developed, well-nourished. COMMUNICATION: Communicates very appropriately. EXTERNAL NOSE AND EARS: No masses, no lesions, no erythema, no edema. INTERNAL NOSE: Deviated septum, no masses, no lesions, no erythema, no edema on the left. The right naris cannot be adequately visualized due to the fact that there is a pack in there. However, there is no epistaxis. ORAL CAVITY, OROPHARYNX: No masses, no lesions, no erythema, no edema. No bloody postnasal drip. NECK: Supple. THYROID: No thyromegaly, no goiter. LYMPH NODES: No lymphadenopathy of the neck. ASSESSMENT: 1. Epistaxis. 2. Deviated septum. PLAN: Continue pack for now. The patient is to be seen by cardiology to see when the patient can be discharged home and how long he can stay off of the blood thinners. If the patient can stay off of blood thinners for a longer period of time, it would be nice to keep him off for 3-4 days and then th e pack will be taken out. The patient can go home at this point from my point of view and follow up as an outpatient and have this done as an outpatient if cardiology clears him. If cardiology states that the patient needs to continue the blood thinners for his heart, then the patient should be on th e blood thinners for the heart. I will still keep it in and take it out in 3 or 4 days and see how h e does. If he bleeds again, then the pack will be reinserted and I will speak to the vacuum form operator re garding the next step in treatment. I will also stress that the patient be kept on the antibiotics a s long as he has the pack in his nose. Dagoberto Rowe MD cc: [id number] TT: 02/20/2017 12:55:26 Confirmation # [id number] Dictation # [id number]
--- NOTE | 2017-02-20 14:52 | CP.PCM.CON ---
History of Present Illness - History of Present Illness History of Present Illness: I was asked to see patient by Dr. Shine. Patient is a 66 year old male with history of CAD s/p CABG, AVR/MVR CVA hwo presents with epistaxis. This has been a recurring problem, and the patient was noted to have previous ENT packing. The patient was recently treated for severe sinusitis. CT scan showed improvement with antibiotic therapy. The patient was noted to be have the oset of epistaxis the day of admission. Review of Systems - Constitutional Constitutional: absent: As Per HPI, Anorexia, Chills, Daytime Sleepiness, Excessive Sweating, Fatigue, Fever, Frequent Falls, Headache, Increased Appetite , Lethargy, Malaise, Night Sweats, Snoring, Sleep Apnea, Weight Gain, Weight Loss, Weakness, Other - EENT Eyes: absent: As Per HPI, Blind Spots, Blurred Vision, Change in Vision, Decreased Night Vision, Diplopia, Discharge, Dry Eye, Exophthalmos, Floaters, Irritation, Itchy Eyes, Loss of Peripheral Vision, Pain, Photophobia, Requires Corrective Lenses, Sees Flashes, Spots in Vision, Tunnel Vision, Other Visual Disturbances, Loss of Vision, Other Ears: absent: As Per HPI, Decreased Hearing, Ear Discharge, Ear Pain, Tinnitus, Abnormal Hearing, Disequilibrium, Dizziness, Other Nose/Mouth/Throat: Epistaxis - Cardiovascular Cardiovascular: absent: As Per HPI, Acrocyanosis, Chest Pain, Chest Pain at Rest , Chest Pain with Activity, Claudication, Diaphoresis, Dyspnea, Dyspnea on Exertion, Edema, Irregular Heart Rhythm, Pain Radiating to Arm/Neck/Jaw, Leg Edema, Leg Ulcers, Lightheadedness, Orthopnea, Palpitations, Paroxysmal Nocturnal Dyspnea, Pedal Edema, Radiating Pain, Rapid Heart Rate, Slow Heart Rate, Syncope, Other - Respiratory Respiratory: absent: As Per HPI, Cough, Dyspnea, Hemoptysis, Dyspnea on Exertion , Wheezing, Snoring, Stridor, Pain on Inspiration, Chest Congestion, Excessive Mucous Production, Change in Mucous Color, Pain with Coughing, Other - Gastrointestinal Gastrointestinal: absent: As Per HPI, Abdominal Pain, Belching, Bloating, Change in Bowel Habits, Change in Stool Character, Coffee Ground Emesis, Constipation, Cramping, Diarrhea, Dyspepsia, Dysphagia, Early Satiety, Excessive Flatus, Fecal Incontinence, Heartburn, Hematemesis, Hematochezia, Loose Stools, Melena, Nausea, Odynophagia, Temesmus, Vomiting, Other - Genitourinary Genitourinary: absent: As Per HPI, Change in Urinary Stream, Difficulty Urinating, Dysuria, Flank Pain, Hematuria, Pyuria, Nocturia, Urinary Incontinence, Urinary Frequency, Urinary Hesitance, Urinary Urgency, Voiding Freq/Small Amts, Freq UTI, Hx Renal/Bladder Calculi, Hx /Renal Surgery, Bladder Distension, Other - Musculoskeletal Musculoskeletal: absent: As Per HPI, Abnormal Gait, Arthralgias, Atrophy, Back Pain, Deformity, Joint Swelling, Limited Range of Motion, Loss of Height, Muscle Cramps, Muscle Weakness, Myalgias, Neck Pain, Numbness, Radiating Pain into Limb, Stiffness, Tingling, Other - Integumentary Integumentary: absent: As Per HPI, Acne, Alopecia, Bleeding Lesions, Change in Hair, Change in Nails, Change in Pigmentation, Changing Lesions, Dry Skin, Erythema, Furuncle, Hirsutism, Lesions, New Lesions, Non-Healing Lesions, Photosensitivity, Pruritus, Rash, Skin Pain, Skin Ulcer, Sores, Striae, Swelling , Unusual Bruising, Wounds, Jaundice, Other - Neurological Neurological: absent: As Per HPI, Abnormal Gait, Abnormal Hearing, Abnormal Movements, Abnormal Speech, Behavioral Changes, Burning Sensations, Confusion, Convulsions, Disequilibrium, Dizziness, Numbness, Focal Weakness, Frequent Falls , Headaches, Lack of Coordination, Loss of Vision, Memory Loss, Paresthesias, Radicular Pain, Restless Legs, Sensory Deficit, Syncope, Tingling, Tremor, Vertigo, Weakness, Other Visual Disturbances, Other - Psychiatric Psychiatric: absent: As Per HPI, Abnormal Sleep Pattern, Anhedonia, Anxiety, Auditory Hallucinations, Behavioral Changes, Change in Appetite, Change in Libido, Confusion, Depression, Difficulty Concentrating, Hallucinations, Homicidal Ideation, Hopelessness, Irritability, Memory Loss, Mood Swings, Panic Attacks, Paranoia, Suicidal Ideation, Visual Hallucinations, Tactile Hallucinations, Other - Endocrine Endocrine: absent: As Per HPI, Change in Body Appearance, Change in Libido, Cold Intolorance, Deepening of Voice, Excessive Sweating, Fatigue, Flushing, Heat Intolorance, Increase in Ring/Shoe/Hat Size, Palpitations, Polydipsia, Polyphagia, Polyuria, Other - Hematologic/Lymphatic Hematologic: absent: As Per HPI, Easy Bleeding, Easy Bruising, Lymphadenopathy, Other Past Patient History - Infectious Disease Hx of Infectious Diseases: None - Past Medical History & Family History Past Medical History?: Yes - Past Social History Smoking Status: Former Smoker - CARDIAC Hx Congestive Heart Failure: Yes Hx Hypercholesterolemia: Yes Hx Hypertension: Yes - PULMONARY Hx Respiratory Disorders: No - NEUROLOGICAL HX Cerebrovascular Accident: Yes - HEENT Hx HEENT Problems: No - RENAL Hx Chronic Kidney Disease: No - ENDOCRINE/METABOLIC Hx Endocrine Disorders: Yes Hx Diabetes Mellitus Type 2: Yes - HEMATOLOGICAL/ONCOLOGICAL Hx Blood Disorders: No - INTEGUMENTARY Hx Dermatological Problems: No Other/Comment: abdominal area with surgical scars - MUSCULOSKELETAL/RHEUMATOLOGICAL Hx Musculoskeletal Disorders: Yes Hx Falls: Yes Hx Fractures: Yes - GASTROINTESTINAL Hx Gastrointestinal Disorders: Yes Hx Gastritis: Yes - GENITOURINARY/GYNECOLOGICAL Hx Genitourinary Disorders: No - PSYCHIATRIC Hx Psychophysiologic Disorder: Yes Hx Substance Use: Yes (40 yrs ago) - SURGICAL HISTORY Hx Surgeries: Yes Hx Coronary Artery Bypass Graft: Yes (BENDER to LAD, SVG to OM1,OM2, SVG to Diag, SVG to PDA. AVR/MVR (bioprosth)) Hx Coronary Stent: Yes - ANESTHESIA Hx Anesthesia: Yes Hx Anesthesia Reactions: No Hx Malignant Hyperthermia: No Has any member of the family had a problem w/ anesthesia?: No Meds Allergies/Adverse Reactions: Allergies Allergy/AdvReac Type Severity Reaction Status Date / Time iodine Allergy Intermediate SHORTNESS Verified 02/20/17 01:41 OF BREATH shellfish derived Allergy Intermediate ANGIOEDEMA Verified 02/20/17 01:41 milk Allergy Mild SHORTNESS Verified 02/20/17 01:41 OF BREATH - Medications Medications: Current Medications Carvedilol (Coreg) 6.25 mg PO BID [facility] Last Admin: 02/20/17 10:22 Dose: 6.25 mg Furosemide (Lasix) 40 mg PO DAILY [facility] Last Admin: 02/20/17 09:31 Dose: 40 mg Gabapentin (Neurontin) 400 mg PO TID [facility] Last Admin: 02/20/17 09:32 Dose: 400 mg Glimepiride (Amaryl) 4 mg PO BIDAC [facility] Sodium Chloride (Sodium Chloride 0.9%) 1,000 mls @ 80 mls/hr IV .[id number] [facility] Last Admin: 02/20/17 03:31 Dose: 80 mls/hr Piperacillin Sod/Tazobactam Sod (Zosyn 3.375 Gm Iv Premix) 50 mls @ 100 mls/hr IVPB Q6H [facility] Insulin Detemir (Levemir) 10 unit SC DAILY [facility] Last Admin: 02/20/17 10:22 Dose: 10 unit Insulin Human Regular (Novolin R) 0 unit SC ACHS [facility] PRN Reason: Protocol Last Admin: 02/20/17 12:23 Dose: 10 unit Metformin HCl (Glucophage) 1,000 mg PO BIDCC [facility] Last Admin: 02/20/17 09:31 Dose: 1,000 mg Rosuvastatin Calcium (Crestor) 10 mg PO HS [facility] Physical Exam - Constitutional Appears: Non-toxic - Head Exam Head Exam: NORMAL INSPECTION - Eye Exam Eye Exam: Normal appearance - ENT Exam ENT Exam: Mucous Membranes Moist Additional comments: nasal packing in place - Neck Exam Neck exam: Positive for: Full Rom - Respiratory Exam Respiratory Exam: NORMAL BREATHING PATTERN - Cardiovascular Exam Cardiovascular Exam: REGULAR RHYTHM - GI/Abdominal Exam GI & Abdominal Exam: Normal Bowel Sounds - Rectal Exam Rectal Exam: Deferred - Extremities Exam Extremities exam: Negative for: pedal edema - Back Exam Back exam: NORMAL INSPECTION - Neurological Exam Neurological exam: Alert, Oriented x3 - Psychiatric Exam Psychiatric exam: Normal Affect - Skin Skin Exam: Normal Color Results - Vital Signs Recent Vital Signs: Last Vital Signs Temp 97.7 F 02/20/17 07:00 Pulse 70 02/20/17 12:24 Resp 20 02/20/17 07:00 BP 148/85 02/20/17 09:31 Pulse Ox 96 02/20/17 07:00 - Labs Result Diagrams: 02/20/17 02:12 02/20/17 02:12 Labs: Laboratory Results - last 24 hr 02/20/17 02/20/17 02/20/17 04:21 06:39 12:03 POC Glucose (mg/dL) 292 H 278 H 342 H - EKG Data EKG Interpreted by: Myself Assessment & Plan (1) Acute posterior epistaxis Assessment and Plan: will need to hold antiplatelet therapy. ENT evaluation Status: Acute (2) CAD (coronary artery disease) of artery bypass graft Assessment and Plan: will benefit from ASA/Brilinta, given SVG stent, however there is recurrent epistaxis. will hold for now. Status: Acute (3) Diabetes Assessment and Plan: tight glucose control Status: Acute (4) Hypertension Assessment and Plan: blood pressure control Status: Acute
[2017-02-20] MEDS ORDERED: Sodium Chloride 0.9% 1,000 ML IV SCH (23:05)
[2017-02-20] MEDS: Piperacillin/Tazobact 3.375 gm 100 ML IVPB SCH (23:28)
[2017-02-21] MEDS: Piperacillin/Tazobact 3.375 gm 100 ML IVPB SCH (05:44)
[2017-02-21] MEDS: (Novolin R) Insulin Human Regular 100 units/ml vial SC SCH ×3 (08:29→16:59)
--- NOTE | 2017-02-21 08:54 | HP ---
CHIEF COMPLAINT: Nose bleeding. HISTORY OF PRESENT ILLNESS: The patient is a 66-year-old, my private patient, with history of coronary artery disease, history of sinusitis, developed spontaneous nasal bleeding from the right nostril. The patient was on blood thinner, Plavix and aspirin and Eliquis. Had not stopped after 10 minutes of continuous pressure. No chest pain, no palpitation, no fever, no chills. When patient in the ER, patient was still bleeding. Rhino Rocket was put in the nose by ER physician; after that he does not have bleeding but we kept the patient to observe that. No fever, no chills. 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 PAST SURGICAL HISTORY: CABG, coronary artery stents, pacemaker, defibrillator. FAMILY HISTORY: Father and mother noncontributory. HABITS: Never smoked, no drugs, no ethanol. REVIEW OF SYSTEMS: The patient was seen and examined on the bedside in the room. No fever, no chills. Nose is congested. Epistaxis was in the right nostril, Rhino Rocket; after that, no more bleeding. No shortness of breath, no chest pain. No nausea, vomiting, or abdominal pain. No fatigue. No rash. PHYSICAL EXAMINATION: VITAL SIGNS: Temperature 98.8, pulse 80, respiratory rate 20, blood pressure 120/89, and pulse oximetry 98. HEENT: Head is normocephalic, atraumatic. Eyes: PERRLA. Extraocular muscles intact. Conjunctivae pink. Eyelids unremarkable. Nose: Left nostril is patent; the right has Rhino Rocket, tube is hanging outside. Mucous membranes moist. NECK: Supple. No carotid bruit. No JVD or thyromegaly. CHEST: Bilaterally symmetrical. HEART: S1, S2 positive. LUNGS: Clear to auscultation. ABDOMEN: Soft. Bowel sounds present. No organomegaly. EXTREMITIES: No edema, no cyanosis. NEUROLOGIC: The patient is awake, alert. Moving all 4 extremities. No focal deficit. LABORATORY DATA: White blood cells 14.9, hemoglobin 12.3, hematocrit 41.4, platelets 256. Sodium 135, potassium 5.0, BUN 40, creatinine 1.0, glucose 466. ASSESSMENT AND PLAN: The patient is a 66-year-old male with leukocytosis, hyperglycemia, renal insufficiency, has poor hyperglycemic control; acute posterior epistaxis, seen by Dr. Dagoberto Rowe, deviated nasal septum, having Rhino Rocket in the right nostril. Continue pack for now. The patient is to be seen by the agricultural engineering technician; we ordered for the consult. Can be discharged home , and now he can stay off the blood thinner. According to ENT, it is better to keep the patient off the blood thinner for 3-4 days, then the pack will be taken out. The patient can go to home at this point from ENT point of view. He wants to see the patient as outpatient. I reviewed Dr. Dagoberto Rowe's notes. Reviewed Dr. Cecilia Montanez' notes also. The patient has history of congestive heart failure, hypercholesterolemia, hypertension, cerebrovascular accident; diabetes mellitus, uncontrolled; history of falls, history of substance abuse 40 years ago, history of coronary artery bypass graft. Waiting for Dr. Cecilia Montanez' input for blood thinner. Gastrointestinal and deep venous thrombosis prophylaxis. Repeat labs. Will follow up. Betty Shine MD cc: [id number] TT: 02/21/2017 08:54:12 mn MTDD
[2017-02-21] MEDS: Insulin Detemir 100 units/ml Vial (Levemir) SC SCH (10:08)
[2017-02-21] MEDS ORDERED: Piperacillin/Tazobact 3.375 GM in Sodium Chloride 0.9% 100 ML IVPB SCH (11:15)
[2017-02-21] MEDS: Piperacillin/Tazobact 3.375 GM in Sodium Chloride 0.9% 100 ML IVPB SCH ×2 (11:28→17:21)
[2017-02-21 16:22] VITALS: BP 144/86; PULSE 76; TEMP 97.8; O2SAT 95
--- NOTE | 2017-02-21 17:21 | CP.PCM.PN ---
Subjective - Date & Time of Evaluation Date of Evaluation: 02/21/17 Time of Evaluation: 11:00 - Subjective Subjective: Alert, orientedx3, no bleeding or chest pains. Objective - Vital Signs/Intake and Output Vital Signs (last 24 hours): Temp Pulse Resp BP Pulse Ox 97.8 F 76 20 144/86 95 02/21/17 15:21 02/21/17 15:21 02/21/17 15:21 02/21/17 15:21 02/21/17 15:21 Intake and Output: 02/21/17 02/21/17 06:59 18:59 Intake Total 920 Output Total 500 Balance 420 - Medications Medications: Current Medications Carvedilol (Coreg) 6.25 mg PO BID [facility] Last Admin: 02/21/17 17:01 Dose: 6.25 mg Furosemide (Lasix) 40 mg PO DAILY [facility] Last Admin: 02/21/17 10:09 Dose: 40 mg Gabapentin (Neurontin) 400 mg PO TID [facility] Last Admin: 02/21/17 17:08 Dose: 400 mg Glimepiride (Amaryl) 4 mg PO BIDAC [facility] Last Admin: 02/21/17 16:59 Dose: 4 mg Sodium Chloride (Sodium Chloride 0.9%) 1,000 mls @ 840 mls/hr IV .Q1H12M [facility] Last Admin: 02/20/17 23:29 Dose: 840 mls/hr Piperacillin Sod/Tazobactam (Sod 3.375 gm/ Sodium Chloride) 100 mls @ 200 mls/ hr IVPB Q6H [facility] Last Admin: 02/21/17 11:28 Dose: Not Given Insulin Detemir (Levemir) 10 unit SC DAILY [facility] Last Admin: 02/21/17 10:08 Dose: 10 unit Insulin Human Regular (Novolin R) 0 unit SC ACHS [facility] PRN Reason: Protocol Last Admin: 02/21/17 16:59 Dose: 6 unit Metformin HCl (Glucophage) 1,000 mg PO BIDCC [facility] Last Admin: 02/21/17 16:59 Dose: 1,000 mg Rosuvastatin Calcium (Crestor) 10 mg PO HS [facility] Last Admin: 02/20/17 21:24 Dose: 10 mg - Labs Labs: PT 9.7 SECONDS (9.7-12.2) 02/20/17 02:12 INR 0.9 02/20/17 02:12 APTT 29 SECONDS (21-34) 02/20/17 02:12 Assessment and Plan - Assessment and Plan (Free Text) Assessment: Patient is seen and examined. No active bleeding, nose pack in place. Alert and oriented x3, NAD. Cleared by ENT and Cardiology. Will f/u with ENT office tomorrow as advised. Advised to hold blood thinners for 3 days and restart as per DR Shine. F/U with PMD in 1 week.
--- NOTE | 2017-02-26 08:52 | DS ---
CHIEF COMPLAINT: Nose bleeding. HISTORY OF PRESENT ILLNESS: The patient is a 66-year-old male with history of diabetes mellitus, coronary artery disease, history of sinusitis, who developed spontaneous nasal bleeding from right nostril. The patient was on a blood thinner - Plavix, aspirin and Eliquis - by the churn drill operator due to cardiac stenting. Had not stopped after 10 minutes of continuous pressure, then patient came into the Emergency Room. The patient was seen done by the ER physician, put Rhino Rockets in the nose. After that, bleeding stopped. We kept the patient to observe for more bleeding. Cardiology consult called also, and patient was seen by ENT/Dr. Rowe and by churn drill operator. According to Dr. Rowe, we can hold 3 days of blood thinner, and the churn drill operator approved that. The patient got better. Discharged home with the Rhino Rockets. Will followup in ENT/Dr. Rowe office to take care of Rhino Rockets and to decide about the blood thinner, and follow up with churn drill operator and my office also. Prescription of medicines given by nurse practitioner. 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 PAST SURGICAL HISTORY: CABG, coronary artery disease, pacemaker, defibrillator. FAMILY HISTORY: Father and mother noncontributory. HABITS: Never smoked, no drugs, no ethanol. REVIEW OF SYSTEMS: The patient is examined on the bedside. Still having Rhino Rocket but no bleeding. Feeling discomfort because of distention of the nostrils. Otherwise, no nose bleeding. No nausea, vomiting, or diarrhea. No hematuria or hematochezia. No swelling of legs. No chest pain or palpitation. No fever, no chills. PHYSICAL EXAMINATION: VITAL SIGNS: Temperature 97.8, pulse 76, blood pressure 144/82, respiratory rate 20. HEENT: Head normocephalic, atraumatic. Eyes: PERRLA. Extraocular muscles intact. Conjunctivae pink. Sclerae clear. Nose ____ Nose has Rhino Rocket. Mucous membranes moist. NECK: Supple. No carotid bruit, JVD or thyromegaly. CHEST: Bilaterally symmetrical. HEART: S1, S2 positive. LUNGS: Clear to auscultation. ABDOMEN: Soft. Bowel sounds positive. No organomegaly. EXTREMITIES: No edema, no cyanosis. NEUROLOGIC: The patient is awake, alert, moving all 4 extremities. No focal deficit. LABORATORY DATA: White blood cells 14.9, hemoglobin 12.3, hematocrit 41.4, platelets 254. INR is within normal limits. Glucose 312, 313 402. ASSESSMENT AND PLAN: The patient is a 66-year-old male with a history of coronary artery disease, cardiac arrhythmias, congestive heart failure, cerebrovascular accident affecting the right side of the body, depression, diabetes mellitus, history of different bone fractures, gastritis, hypercholesterolemia. The patient came with nose bleeding, not controlled by simple pressure. Rhino Rockets put by ER physician . The patient was seen by ENT and, according to ENT, we have to stop the blood thinners for 3 days. Then , we called consult with Cecilia Pulido; that is the patient's churn drill operator. He approved holding blood thinners. The patient improved. Sent home with follow up ENT, churn drill operator and primary care physician. Prescription of medicines given by Leonor Espinoza. The patient is alert, oriented. No episode of bleeding. No neck pain . Oriented x 3. Cleared by ENT and cardiology. ENT followup will be tomorrow, the day after discharge. Advised to hold the blood thinner for 3 days and restart as per Dr. Guerrier and churn drill operator and ENT/Dr. Rowe. Will follow up. Betty Shine MD cc: [id number] TT: 02/26/2017 08:25:23 mi 02/26/2017 07:51:34 NIKUNJ
== END 2017-02-21 20:25 | disposition home or self-care (01) | DRG 151 ==
LOC: C.ER 01:23 → C.5T 02:16
PROVIDERS: ADMIT Internal Medicine; ATTEND Internal Medicine
DX: R04.0 Epistaxis (principal); I11.0 Hypertensive heart disease with heart failure; I50.9 Heart failure, unspecified; I25.10 Atherosclerotic heart disease of native coronary artery without angina pectoris; E78.00 Pure hypercholesterolemia, unspecified; Z95.1 Presence of aortocoronary bypass graft; Z95.0 Presence of cardiac pacemaker; E11.65 Type 2 diabetes mellitus with hyperglycemia; Z79.01 Long term (current) use of anticoagulants; Z87.891 Personal history of nicotine dependence; Z86.73 Personal history of transient ischemic attack (TIA), and cerebral infarction without residual deficits

== ENCOUNTER 2017-05-23 04:51 | Inpatient (IN) | payer MEDICARE, MEDICAID ==
[2017-05-23 04:51] VITALS: BMI 33.9
[2017-05-23] MEDS ORDERED: Sodium Chloride 0.9% 1,000 ML ONE (05:19)
--- NOTE | 2017-05-23 05:32 | C.PDOC ---
History Of Present Illness 66 y/o male presents to emergency department with complaint of fatigue and lightheadedness, with some associated SOB, onset just prior to arrival. Patient states that his is also in ER, and that symptoms started after he could not find his car to drive here to see her. He reports feeling faint prior to EMS arrival but denies LOC. Denies chest pain or palpitations. Patient with extensive past cardiac history. At triage, patient found to have blood sugar of 475. Time Seen by Provider: 05/23/17 05:07 Chief Complaint (Nursing): Cough, Cold, Congestion History Per: Patient History/Exam Limitations: no limitations Onset/Duration Of Symptoms: Hrs Current Symptoms Are (Timing): Still Present Recent travel outside of the [place]: No Past Medical History Reviewed: Historical Data, Nursing Documentation, Vital Signs Vital Signs: Last Vital Signs Temp 98.6 F 05/23/17 05:48 Pulse 64 05/23/17 06:46 Resp 18 05/23/17 06:46 BP 123/67 05/23/17 06:46 Pulse Ox 95 05/23/17 07:00 - Medical History PMH: CAD, Cardia Arrhythmia, CHF, CVA (affecting right side of body), Depression (denies), Diabetes, Fractures, Gastritis, HTN, Hypercholesterolemia Surgical History: CABG (BENDER to LAD, SVG to OM1,OM2, SVG to Diag, SVG to PDA. AVR/MVR (bioprosth)), Coronary Stent, Pacemaker (Defibrillator) - [facility] Procedures CORONAR ARTERIOGR-2 CATH (07/19/14) DILATION OF CORONARY ARTERY, ONE SITE, PERCUTANEOUS APPROACH (05/20/16) INSERTION OF INFUSION DEV INTO SUP VENA CAVA, PERC APPROACH (01/19/17) INSPECTION OF LARYNX, ENDO (04/23/16) LEFT HEART CARDIAC CATH (07/19/14) LT HEART ANGIOCARDIOGRAM (07/19/14) MEASURE OF CARDIAC SAMPL & PRESSURE, L HEART, PERC APPROACH (05/20/16) PLAIN RADIOGRAPHY OF L INT MAMM GRAFT USING OTH CONTRAST (05/20/16) PLAIN RADIOGRAPHY OF LEFT HEART USING OTHER CONTRAST (05/20/16) PLAIN RADIOGRAPHY OF MULT COR A GRAFT USING OTH CONTRAST (05/20/16) ULTRASONOGRAPHY OF RIGHT AND LEFT HEART, TRANSESOPHAGEAL (03/17/17) Family History: States: Unknown Family Hx - Social History Hx Tobacco Use: No Hx Alcohol Use: Yes (40 yrs ago) Hx Substance Use: Yes (40 yrs ago) - Immunization History Hx Tetanus Toxoid Vaccination: Yes Hx Influenza Vaccination: No Hx Pneumococcal Vaccination: Yes Review Of Systems Constitutional: Negative for: Fever, Chills Cardiovascular: Positive for: Light Headedness. Negative for: Chest Pain, Palpitations Respiratory: Positive for: Shortness of Breath. Negative for: Cough, Pleuritic Pain, Wheezing Gastrointestinal: Negative for: Nausea, Vomiting, Abdominal Pain Skin: Negative for: Rash Neurological: Positive for: Dizziness. Negative for: Headache Physical Exam - Physical Exam Appears: Non-toxic, No Acute Distress Skin: Normal Color, Warm, Dry Head: Atraumatic, Normacephalic Eye(s): bilateral: Normal Inspection, PERRL Chest: Symmetrical, Other (mid-sternal scar) Cardiovascular: Rhythm Regular, No Murmur Respiratory: Normal Breath Sounds, No Accessory Muscle Use, No Rales, No Rhonchi , No Wheezing Gastrointestinal/Abdominal: Soft, No Tenderness, No Guarding, No Rebound, Other (obese) Back: Normal Inspection Extremity: Normal ROM, Capillary Refill (< 2 sec. ) Neurological/Psych: Oriented x3, Normal Speech, Normal Cognition ED Course And Treatment - Laboratory Results Result Diagrams: 05/23/17 05:49 05/23/17 05:49 ECG: Interpreted By Me Interpretation Of ECG: paced rhythm Rate From EC (bpm) O2 Sat by Pulse Oximetry: 95 (RA) Pulse Ox Interpretation: Normal - Radiology CXR: Interpreted by Me, Viewed By Me CXR Interpretation: Yes: No Acute Disease. No: Infiltrates Progress Note: Labs ordered and reviewed. EKG, CxR ordered. Pt given insulin and IV fluids. - Physician Consult Information Physician Contacted: Alison Lux Outcome Of Conversation: admit to telemetry Disposition - Disposition Disposition: HOSPITALIZED Disposition Time: 06:59 Condition: STABLE - Clinical Impression Clinical Impression: Hyperglycemia, Dyspnea, Near syncope - PA / [employer] / Resident Statement MD/DO has reviewed & agrees with the documentation as recorded. - Scribe Statement The provider has reviewed the documentation as recorded by the Scribe Eduardo Wadsworth All medical record entries made by the Scribe were at my direction and personally dictated by me. I have reviewed the chart and agree that the record accurately reflects my personal performance of the history, physical exam, medical decision making, and the department course for this patient. I have also personally directed, reviewed, and agree with the discharge instructions and disposition.
[2017-05-23] MEDS ORDERED: Sodium Chloride 0.9% 500 ML IV STA (05:41)
[2017-05-23] MEDS ORDERED: (Novolin R) Insulin Human Regular 100 units/ml vial SC ONE (05:42)
[2017-05-23 05:51] LABS: BASO # 0.1 K/uL (0.0-0.2); BASO % 1.4 % (0.0-2.0); EOS # 0.4 K/uL (0.0-0.7); HEMOGLOBIN 12.9 g/dL (12.0-18.0); LYMPH # 1.5 K/uL (1.0-4.3); LYMPH % 14.8 % (20.0-40.0); MEAN CELL VOLUME 79.5 fL (80.0-94.0); MEAN CORPUSCULAR HEMOGLOBIN 24.4 pg (27.0-31.0); MEAN CORPUSCULAR HGB CONC 30.7 g/dL (33.0-37.0); MEAN PLATELET VOLUME 9.1 fL (7.2-11.7); MONO # 0.8 K/uL (0.0-0.8); MONO % 7.6 % (0.0-10.0); NEUT # 7.4 K/uL (1.8-7.0); NEUT % 72.2 % (50.0-75.0); RBC 5.28 Mil/uL (4.40-5.90); RED CELL DISTRIBUTION WIDTH 16.7 % (11.5-14.5); WHITE BLOOD COUNT 10.3 K/uL (4.8-10.8)
[2017-05-23] MEDS ORDERED: (Novolin R) Insulin Human Regular 100 units/ml vial ONE ×2 (06:00→07:01)
[2017-05-23 06:04] LABS: ALBUMIN 4.1 g/dL (3.5-5.0)
[2017-05-23 06:07] LABS: AST/SGOT 36 U/L (17-59); GFR AFRICAN-AMERICAN > 60; GFR NON-AFRICAN AMERICAN 55
[2017-05-23 06:08] LABS: ALB/GLOB RATIO 1.1 (1.0-2.1); ALT/SGPT 42 U/L (21-72); BLOOD UREA NITROGEN 36 mg/dL (9-20)
[2017-05-23 06:26] LABS: B-TYPE NATRIURETIC PEPTIDE 458 pg/mL (0-900)
[2017-05-23] MEDS ORDERED: (Novolin R) Insulin Human Regular 100 units/ml vial IV ONE (06:53)
--- NOTE | 2017-05-23 08:43 | RAD ---
HISTORY: chest congestion, SOB COMPARISON: 01/24/2017 FINDINGS: LUNGS: Mild venous congestion. Patchy left basilar airspace opacity with small left pleural effusion. PLEURA: As above. CARDIOVASCULAR: Status post median sternotomy. Cardiomegaly. Left-sided pacemaker. OSSEOUS STRUCTURES: No significant abnormalities. VISUALIZED UPPER ABDOMEN: Normal. OTHER FINDINGS: None. IMPRESSION: No significant interval change.
[2017-05-23 14:40] LABS: BASO # 0.1 K/uL (0.0-0.2); BASO % 1.1 % (0.0-2.0); EOS # 0.5 K/uL (0.0-0.7); EOS % 4.8 % (0.0-4.0); HEMOGLOBIN 12.5 g/dL (12.0-18.0); LYMPH # 1.9 K/uL (1.0-4.3); LYMPH % 18.4 % (20.0-40.0); MEAN CORPUSCULAR HGB CONC 30.4 g/dL (33.0-37.0); MONO # 0.9 K/uL (0.0-0.8); MONO % 8.8 % (0.0-10.0); NEUT # 7.1 K/uL (1.8-7.0); NEUT % 66.9 % (50.0-75.0); NRBC % 0.1 % (0.0-2.0); RBC 5.2 Mil/uL (4.40-5.90); RED CELL DISTRIBUTION WIDTH 16.8 % (11.5-14.5); WHITE BLOOD COUNT 10.5 K/uL (4.8-10.8)
[2017-05-23 14:53] LABS: CK-MB 5.26 ng/mL (0.0-3.38)
--- NOTE | 2017-05-23 17:29 | CP.PCM.CON ---
History of Present Illness - History of Present Illness History of Present Illness: patient seen/examined. well known to me from office practice. Patient had a brief period of confusion after went to hospital. BS markedly elevated. will monitor on telemetry. Past Patient History - Infectious Disease Hx of Infectious Diseases: None - Past Medical History & Family History Past Medical History?: Yes - Past Social History Smoking Status: Former Smoker - CARDIAC Hx Cardiac Disorders: Yes (CAD, CABG, Pacemaker, Cardiac Arrhythmia, [place]) Hx Congestive Heart Failure: Yes Hx Hypercholesterolemia: Yes Hx Hypertension: Yes - HEENT Hx HEENT Problems: No - RENAL Hx Chronic Kidney Disease: No - ENDOCRINE/METABOLIC Hx Diabetes Mellitus Type 2: Yes - INTEGUMENTARY Hx Dermatological Problems: No Other/Comment: abdominal area with surgical scars - MUSCULOSKELETAL/RHEUMATOLOGICAL Hx Falls: No - GASTROINTESTINAL Hx Gastritis: Yes - PSYCHIATRIC Hx Substance Use: Yes (40 years ago) - SURGICAL HISTORY Hx Coronary Artery Bypass Graft: Yes (BENDER to LAD, SVG to OM1,OM2, SVG to Diag, SVG to PDA. AVR/MVR (bioprosth)) Hx Coronary Stent: Yes Other/Comment: Pacemaker 2006 - ANESTHESIA Hx Anesthesia: Yes Hx Anesthesia Reactions: No Hx Malignant Hyperthermia: No Meds Allergies/Adverse Reactions: Allergies Allergy/AdvReac Type Severity Reaction Status Date / Time iodine Allergy Intermediate SHORTNESS Verified 05/23/17 05:06 OF BREATH shellfish derived Allergy Intermediate ANGIOEDEMA Verified 05/23/17 05:06 milk Allergy Mild SHORTNESS Verified 05/23/17 05:06 OF BREATH - Medications Medications: Current Medications Aspirin (Ecotrin) 81 mg PO DAILY [facility] Carvedilol (Coreg) 6.25 mg PO BID [facility] Enoxaparin Sodium (Lovenox) 40 mg SC DAILY [facility] Furosemide (Lasix) 40 mg PO DAILY [facility] Gabapentin (Neurontin) 400 mg PO TID [facility] Last Admin: 05/23/17 13:06 Dose: 400 mg Glimepiride (Amaryl) 4 mg PO DAILY [facility] Insulin Aspart (Novolog) 0 unit SC ACHS [facility] PRN Reason: Protocol Metformin HCl (Glucophage) 1,000 mg PO BIDCC [facility] Pantoprazole Sodium (Protonix Ec Tab) 40 mg PO DAILY [facility] Rosuvastatin Calcium (Crestor) 10 mg PO HS [facility] Ticagrelor (Brilinta) 90 mg PO BID [facility] Results - Vital Signs Recent Vital Signs: Last Vital Signs Temp 97.7 F 05/23/17 09:55 Pulse 70 05/23/17 11:17 Resp 18 05/23/17 11:34 BP 152/94 H 05/23/17 09:55 Pulse Ox 100 05/23/17 11:34 - Labs Result Diagrams: 05/23/17 14:14 05/23/17 05:49 Labs: Laboratory Results - last 24 hr 05/23/17 05/23/17 05/23/17 08:25 14:14 14:14 WBC 10.5 RBC 5.20 Hgb 12.5 Hct 41.1 MCV 79.0 L MCH 24.0 L MCHC 30.4 L RDW 16.8 H Plt Count 205 MPV 9.0 Neut % (Auto) 66.9 Lymph % (Auto) 18.4 L [place] % (Auto) 8.8 Eos % (Auto) 4.8 H Baso % (Auto) 1.1 Neut # 7.1 H Lymph # 1.9 [place] # 0.9 H Eos # 0.5 Baso # 0.1 POC Glucose (mg/dL) 224 H Total Creatine Kinase 255 H CK-MB (Mass) 5.26 H Troponin I, Quant 0.0390 05/23/17 17:23 WBC RBC Hgb Hct MCV MCH MCHC RDW Plt Count MPV Neut % (Auto) Lymph % (Auto) [place] % (Auto) Eos % (Auto) Baso % (Auto) Neut # Lymph # [place] # Eos # Baso # POC Glucose (mg/dL) 373 H Total Creatine Kinase CK-MB (Mass) Troponin I, Quant
--- NOTE | 2017-05-23 17:29 | CP.PCM.CON ---
History of Present Illness - History of Present Illness History of Present Illness: I was asked to see patient well known to me from office practice. Patient is a 66 year old male with history of CABG, MVR/AVR, CVA, PCI SVG who presents with altered metnal status and confusion. The patient's had to go the hospital, and the patient became confused. The patient was brought to [place] and was found to have an elevated BS. The patient has no current chest pain. Review of Systems - Constitutional Constitutional: absent: As Per HPI, Anorexia, Chills, Daytime Sleepiness, Excessive Sweating, Fatigue, Fever, Frequent Falls, Headache, Increased Appetite , Lethargy, Malaise, Night Sweats, Snoring, Sleep Apnea, Weight Gain, Weight Loss, Weakness, Other - EENT Eyes: absent: As Per HPI, Blind Spots, Blurred Vision, Change in Vision, Decreased Night Vision, Diplopia, Discharge, Dry Eye, Exophthalmos, Floaters, Irritation, Itchy Eyes, Loss of Peripheral Vision, Pain, Photophobia, Requires Corrective Lenses, Sees Flashes, Spots in Vision, Tunnel Vision, Other Visual Disturbances, Loss of Vision, Other Ears: absent: As Per HPI, Decreased Hearing, Ear Discharge, Ear Pain, Tinnitus, Abnormal Hearing, Disequilibrium, Dizziness, Other Nose/Mouth/Throat: absent: As Per HPI, Epistaxis, Nasal Congestion, Nasal Discharge, Nasal Obstruction, Nasal Trauma, Nose Pain, Post Nasal Drip, Sinus Pain, Sinus Pressure, Bleeding Gums, Change in Voice, Dental Pain, Dry Mouth, Dysphagia, Halitosis, Hoarsness, Lip Swelling, Mouth Lesions, Mouth Pain, Odynophagia, Sore Throat, Throat Swelling, Tongue Swelling, Facial Pain, Neck Pain, Neck Mass, Other - Cardiovascular Cardiovascular: absent: As Per HPI, Acrocyanosis, Chest Pain, Chest Pain at Rest , Chest Pain with Activity, Claudication, Diaphoresis, Dyspnea, Dyspnea on Exertion, Edema, Irregular Heart Rhythm, Pain Radiating to Arm/Neck/Jaw, Leg Edema, Leg Ulcers, Lightheadedness, Orthopnea, Palpitations, Paroxysmal Nocturnal Dyspnea, Pedal Edema, Radiating Pain, Rapid Heart Rate, Slow Heart Rate, Syncope, Other - Respiratory Respiratory: absent: As Per HPI, Cough, Dyspnea, Hemoptysis, Dyspnea on Exertion , Wheezing, Snoring, Stridor, Pain on Inspiration, Chest Congestion, Excessive Mucous Production, Change in Mucous Color, Pain with Coughing, Other - Gastrointestinal Gastrointestinal: absent: As Per HPI, Abdominal Pain, Belching, Bloating, Change in Bowel Habits, Change in Stool Character, Coffee Ground Emesis, Constipation, Cramping, Diarrhea, Dyspepsia, Dysphagia, Early Satiety, Excessive Flatus, Fecal Incontinence, Heartburn, Hematemesis, Hematochezia, Loose Stools, Melena, Nausea, Odynophagia, Temesmus, Vomiting, Other - Genitourinary Genitourinary: absent: As Per HPI, Change in Urinary Stream, Difficulty Urinating, Dysuria, Flank Pain, Hematuria, Pyuria, Nocturia, Urinary Incontinence, Urinary Frequency, Urinary Hesitance, Urinary Urgency, Voiding Freq/Small Amts, Freq UTI, Hx Renal/Bladder Calculi, Hx /Renal Surgery, Bladder Distension, Other - Musculoskeletal Musculoskeletal: absent: As Per HPI, Abnormal Gait, Arthralgias, Atrophy, Back Pain, Deformity, Joint Swelling, Limited Range of Motion, Loss of Height, Muscle Cramps, Muscle Weakness, Myalgias, Neck Pain, Numbness, Radiating Pain into Limb, Stiffness, Tingling, Other - Integumentary Integumentary: absent: As Per HPI, Acne, Alopecia, Bleeding Lesions, Change in Hair, Change in Nails, Change in Pigmentation, Changing Lesions, Dry Skin, Erythema, Furuncle, Hirsutism, Lesions, New Lesions, Non-Healing Lesions, Photosensitivity, Pruritus, Rash, Skin Pain, Skin Ulcer, Sores, Striae, Swelling , Unusual Bruising, Wounds, Jaundice, Other - Neurological Neurological: absent: As Per HPI, Abnormal Gait, Abnormal Hearing, Abnormal Movements, Abnormal Speech, Behavioral Changes, Burning Sensations, Confusion, Convulsions, Disequilibrium, Dizziness, Numbness, Focal Weakness, Frequent Falls , Headaches, Lack of Coordination, Loss of Vision, Memory Loss, Paresthesias, Radicular Pain, Restless Legs, Sensory Deficit, Syncope, Tingling, Tremor, Vertigo, Weakness, Other Visual Disturbances, Other - Psychiatric Psychiatric: absent: As Per HPI, Abnormal Sleep Pattern, Anhedonia, Anxiety, Auditory Hallucinations, Behavioral Changes, Change in Appetite, Change in Libido, Confusion, Depression, Difficulty Concentrating, Hallucinations, Homicidal Ideation, Hopelessness, Irritability, Memory Loss, Mood Swings, Panic Attacks, Paranoia, Suicidal Ideation, Visual Hallucinations, Tactile Hallucinations, Other - Endocrine Endocrine: absent: As Per HPI, Change in Body Appearance, Change in Libido, Cold Intolorance, Deepening of Voice, Excessive Sweating, Fatigue, Flushing, Heat Intolorance, Increase in Ring/Shoe/Hat Size, Palpitations, Polydipsia, Polyphagia, Polyuria, Other - Hematologic/Lymphatic Hematologic: absent: As Per HPI, Easy Bleeding, Easy Bruising, Lymphadenopathy, Other Past Patient History - Infectious Disease Hx of Infectious Diseases: None - Past Medical History & Family History Past Medical History?: Yes - Past Social History Smoking Status: Former Smoker - CARDIAC Hx Cardiac Disorders: Yes (CAD, CABG, Pacemaker, Cardiac Arrhythmia, [place]) Hx Congestive Heart Failure: Yes Hx Hypercholesterolemia: Yes Hx Hypertension: Yes - HEENT Hx HEENT Problems: No - RENAL Hx Chronic Kidney Disease: No - ENDOCRINE/METABOLIC Hx Diabetes Mellitus Type 2: Yes - INTEGUMENTARY Hx Dermatological Problems: No Other/Comment: abdominal area with surgical scars - MUSCULOSKELETAL/RHEUMATOLOGICAL Hx Falls: No - GASTROINTESTINAL Hx Gastritis: Yes - PSYCHIATRIC Hx Substance Use: Yes (40 years ago) - SURGICAL HISTORY Hx Coronary Artery Bypass Graft: Yes (BENDER to LAD, SVG to OM1,OM2, SVG to Diag, SVG to PDA. AVR/MVR (bioprosth)) Hx Coronary Stent: Yes Other/Comment: Pacemaker 2006 - ANESTHESIA Hx Anesthesia: Yes Hx Anesthesia Reactions: No Hx Malignant Hyperthermia: No Meds Allergies/Adverse Reactions: Allergies Allergy/AdvReac Type Severity Reaction Status Date / Time iodine Allergy Intermediate SHORTNESS Verified 05/23/17 05:06 OF BREATH shellfish derived Allergy Intermediate ANGIOEDEMA Verified 05/23/17 05:06 milk Allergy Mild SHORTNESS Verified 05/23/17 05:06 OF BREATH - Medications Medications: Current Medications Aspirin (Ecotrin) 81 mg PO DAILY [facility] Carvedilol (Coreg) 6.25 mg PO BID [facility] Enoxaparin Sodium (Lovenox) 40 mg SC DAILY [facility] Furosemide (Lasix) 40 mg PO DAILY [facility] Gabapentin (Neurontin) 400 mg PO TID [facility] Last Admin: 05/23/17 13:06 Dose: 400 mg Glimepiride (Amaryl) 4 mg PO DAILY [facility] Insulin Aspart (Novolog) 0 unit SC ACHS [facility] PRN Reason: Protocol Metformin HCl (Glucophage) 1,000 mg PO BIDCC [facility] Pantoprazole Sodium (Protonix Ec Tab) 40 mg PO DAILY [facility] Rosuvastatin Calcium (Crestor) 10 mg PO HS [facility] Ticagrelor (Brilinta) 90 mg PO BID [facility] Physical Exam - Constitutional Appears: Non-toxic - Head Exam Head Exam: NORMAL INSPECTION - Eye Exam Eye Exam: Normal appearance - ENT Exam ENT Exam: Mucous Membranes Moist - Neck Exam Neck exam: Positive for: Full Rom - Respiratory Exam Respiratory Exam: Decreased Breath Sounds - Cardiovascular Exam Cardiovascular Exam: REGULAR RHYTHM - GI/Abdominal Exam GI & Abdominal Exam: Normal Bowel Sounds - Rectal Exam Rectal Exam: Deferred - Extremities Exam Extremities exam: Positive for: pedal edema - Back Exam Back exam: NORMAL INSPECTION - Neurological Exam Neurological exam: Alert, Oriented x3 - Psychiatric Exam Psychiatric exam: Normal Affect - Skin Skin Exam: Normal Color Results - Vital Signs Recent Vital Signs: Last Vital Signs Temp 97.7 F 05/23/17 09:55 Pulse 70 05/23/17 11:17 Resp 18 05/23/17 11:34 BP 152/94 H 05/23/17 09:55 Pulse Ox 100 05/23/17 11:34 - Labs Result Diagrams: 05/24/17 07:05 05/24/17 07:05 Labs: Laboratory Results - last 24 hr 05/23/17 05/23/17 05/23/17 08:25 14:14 14:14 WBC 10.5 RBC 5.20 Hgb 12.5 Hct 41.1 MCV 79.0 L MCH 24.0 L MCHC 30.4 L RDW 16.8 H Plt Count 205 MPV 9.0 Neut % (Auto) 66.9 Lymph % (Auto) 18.4 L [place] % (Auto) 8.8 Eos % (Auto) 4.8 H Baso % (Auto) 1.1 Neut # 7.1 H Lymph # 1.9 [place] # 0.9 H Eos # 0.5 Baso # 0.1 POC Glucose (mg/dL) 224 H Total Creatine Kinase 255 H CK-MB (Mass) 5.26 H Troponin I, Quant 0.0390 05/23/17 17:23 WBC RBC Hgb Hct MCV MCH MCHC RDW Plt Count MPV Neut % (Auto) Lymph % (Auto) [place] % (Auto) Eos % (Auto) Baso % (Auto) Neut # Lymph # [place] # Eos # Baso # POC Glucose (mg/dL) 373 H Total Creatine Kinase CK-MB (Mass) Troponin I, Quant - EKG Data EKG Interpreted by: Myself EKG shows normal: Sinus rhythm Assessment & Plan (1) Near syncope Assessment and Plan: likley related to hyperglycemia. continue current medical therapy Status: Acute (2) CAD (coronary artery disease) of artery bypass graft Assessment and Plan: previous coronary intervention. continue antiplatelet therapy Status: Acute (3) Diabetes Assessment and Plan: will need control of blood sugar Status: Acute (4) Hypertension Assessment and Plan: monitor blood pressure Status: Acute
[2017-05-23 17:50] VITALS: RESP 20
[2017-05-23] MEDS: (Novolog) Insulin Aspart, Recombinant 100 u/ml 10 ml vial SC SCH ×2 (18:03→21:55)
--- NOTE | 2017-05-23 18:09 | CP.PCM.HP ---
Past Patient History - Infectious Disease Hx of Infectious Diseases: None - Past Medical History & Family History Past Medical History?: Yes - Past Social History Smoking Status: Former Smoker - CARDIAC Hx Cardiac Disorders: Yes (CAD, CABG, Pacemaker, Cardiac Arrhythmia, [place]) Hx Congestive Heart Failure: Yes Hx Hypercholesterolemia: Yes Hx Hypertension: Yes - HEENT Hx HEENT Problems: No - RENAL Hx Chronic Kidney Disease: No - ENDOCRINE/METABOLIC Hx Diabetes Mellitus Type 2: Yes - INTEGUMENTARY Hx Dermatological Problems: No Other/Comment: abdominal area with surgical scars - MUSCULOSKELETAL/RHEUMATOLOGICAL Hx Falls: No - GASTROINTESTINAL Hx Gastritis: Yes - PSYCHIATRIC Hx Substance Use: Yes (40 years ago) - SURGICAL HISTORY Hx Coronary Artery Bypass Graft: Yes (BENDER to LAD, SVG to OM1,OM2, SVG to Diag, SVG to PDA. AVR/MVR (bioprosth)) Hx Coronary Stent: Yes Other/Comment: Pacemaker 2006 - ANESTHESIA Hx Anesthesia: Yes Hx Anesthesia Reactions: No Hx Malignant Hyperthermia: No Meds Allergies/Adverse Reactions: Allergies Allergy/AdvReac Type Severity Reaction Status Date / Time iodine Allergy Intermediate SHORTNESS Verified 05/23/17 05:06 OF BREATH shellfish derived Allergy Intermediate ANGIOEDEMA Verified 05/23/17 05:06 milk Allergy Mild SHORTNESS Verified 05/23/17 05:06 OF BREATH Physical Exam - Constitutional Appears: Well - Head Exam Head Exam: ATRAUMATIC, NORMAL INSPECTION, NORMOCEPHALIC - Eye Exam Eye Exam: EOMI, Normal appearance, PERRL Pupil Exam: NORMAL ACCOMODATION, PERRL - ENT Exam ENT Exam: Mucous Membranes Moist, Normal Exam - Neck Exam Neck exam: Positive for: Normal Inspection - Respiratory Exam Respiratory Exam: Decreased Breath Sounds - Cardiovascular Exam Cardiovascular Exam: REGULAR RHYTHM, +S1, +S2 - GI/Abdominal Exam GI & Abdominal Exam: Diminished Bowel Sounds, Soft - Rectal Exam Rectal Exam: Deferred Results - Vital Signs Recent Vital Signs: Last Vital Signs Temp 97.6 F 05/23/17 15:40 Pulse 64 05/23/17 15:40 Resp 20 05/23/17 15:40 BP 126/76 05/23/17 15:40 Pulse Ox 99 05/23/17 15:40 - Labs Result Diagrams: 05/23/17 14:14 05/23/17 05:49 Labs: Laboratory Results - last 24 hr 05/23/17 05/23/17 05/23/17 08:25 14:14 14:14 WBC 10.5 RBC 5.20 Hgb 12.5 Hct 41.1 MCV 79.0 L MCH 24.0 L MCHC 30.4 L RDW 16.8 H Plt Count 205 MPV 9.0 Neut % (Auto) 66.9 Lymph % (Auto) 18.4 L [place] % (Auto) 8.8 Eos % (Auto) 4.8 H Baso % (Auto) 1.1 Neut # 7.1 H Lymph # 1.9 [place] # 0.9 H Eos # 0.5 Baso # 0.1 POC Glucose (mg/dL) 224 H Total Creatine Kinase 255 H CK-MB (Mass) 5.26 H Troponin I, Quant 0.0390 05/23/17 17:23 WBC RBC Hgb Hct MCV MCH MCHC RDW Plt Count MPV Neut % (Auto) Lymph % (Auto) [place] % (Auto) Eos % (Auto) Baso % (Auto) Neut # Lymph # [place] # Eos # Baso # POC Glucose (mg/dL) 373 H Total Creatine Kinase CK-MB (Mass) Troponin I, Quant
--- NOTE | 2017-05-23 19:51 | CON ---
DATE: 05/23/2017 CHIEF COMPLAINT: Near syncope. HISTORY OF PRESENT ILLNESS: This is a 66-year-old male with history of coronary artery disease status post CABG, history of coronary artery stents, history of dyslipidemia, diabetes, hypertension, cardiac arrhythmia with pacemaker in 2006 who presented with lightheadedness, generalized weakness and diaphoresis, found to have elevated blood sugars of more than 500 who was consulted for dizziness. It was more lightheaded rather spinning sensation of the room, currently sitting up in the chair talking to his *------*patient at bedside. He has evidence of diabetic neuropathy on examination, some uncontrolled diabetes as well as he has residual right-sided weakness from prior CVA. CT head showed no acute cranial abnormalities. Currently his blood sugar today is 373, it is much better than his initial presentation. PAST MEDICAL HISTORY: He has history of coronary artery disease status post CABG, cardiac arrhythmias status post pacemaker, gastritis, dyslipidemia, hypertension, hyperlipidemia. ALLERGIES: ALLERGIC TO SHELLFISH, IODINE AND MILK. REVIEW OF SYSTEMS: A 14-point review of systems negative except per HPI. FAMILY HISTORY: Noncontributory. SOCIAL HISTORY: No illicit drug use, smoking or EtOH abuse. PHYSICAL EXAMINATION VITAL SIGNS: Temperature 97.6, pulse rate of 64, blood pressure of 126/73, respiratory rate 20 and oxygen saturation was 99% on room air. GENERAL: The patient is sitting up. NEUROLOGIC: The patient is alert, oriented to person, place and year. *------*Cranial nerves II through XII intact. MOTOR EXAM: Residual right-sided weakness, spastic in nature from prior CVA. SENSORY EXAM: Decreased to light touch and proprioception bilaterally. Decreased vibration. DTRs are 2+ throughout, 1 at the ankles. Coordination, [id number] intact, but difficult on the on right due to residual right-sided weakness. Examination of the gait is deferred for now. LABORATORY DATA: Sodium is 132, potassium 4.4, chloride 91, carbon dioxide 22, BUN of 36, creatinine of 1.2, random glucose of 509. ASSESSMENT AND PLAN: 1. A 66-year-old male with history of hypertension, ischemic coronary artery disease status post CABG, status post cardiac stent, arrhythmia status post pacemaker, history of type 2 diabetes mellitus who presents with generalized weakness, lightheadedness, diaphoresis, found to be hyperglycemic. His near syncope seems likely secondary to hyperglycemia superimposed on underlying generalized residual right-sided weakness from prior CVA. At this time, recommended physical therapy and occupational therapy given he has residual right-sided weakness. 2. Keep blood sugars in the 140 to 180 and avoid hyperglycemic acceleration and then needs a diabetic diet and medication adjustment. 3. Continue him on aspirin 81 mg at this time for stroke prevention. 4. Continue with current medical management. Thank you for this consult. Jose Alberto Smith MD
[2017-05-24] MEDS ORDERED: (Novolog) Insulin Aspart, Recombinant 100 u/ml 10 ml vial SC ONE (02:50)
[2017-05-24 07:20] LABS: BASO # 0.1 K/uL (0.0-0.2); EOS # 0.5 K/uL (0.0-0.7); LYMPH # 1.9 K/uL (1.0-4.3); MONO # 0.8 K/uL (0.0-0.8); NEUT # 5.8 K/uL (1.8-7.0); RED CELL DISTRIBUTION WIDTH 16.3 % (11.5-14.5)
[2017-05-24 07:41] LABS: ALBUMIN 3.8 g/dL (3.5-5.0)
[2017-05-24 07:43] LABS: GFR AFRICAN-AMERICAN > 60; GFR NON-AFRICAN AMERICAN > 60
[2017-05-24 07:44] LABS: ALB/GLOB RATIO 1.1 (1.0-2.1); ALT/SGPT 42 U/L (21-72); AST/SGOT 35 U/L (17-59); BLOOD UREA NITROGEN 25 mg/dL (9-20); CALCIUM 8.7 mg/dl (8.6-10.4)
[2017-05-24 08:06] LABS: BASO % 0.7 % (0.0-2.0); EOS % 5.1 % (0.0-4.0); HEMOGLOBIN 12.3 g/dL (12.0-18.0); LYMPH % 21.1 % (20.0-40.0); MEAN CELL VOLUME 78.7 fL (80.0-94.0); MEAN CORPUSCULAR HGB CONC 30.5 g/dL (33.0-37.0); MEAN PLATELET VOLUME 8.9 fL (7.2-11.7); MONO % 8.5 % (0.0-10.0); NEUT % 64.6 % (50.0-75.0); RBC 5.13 Mil/uL (4.40-5.90)
[2017-05-24] MEDS: (Novolog) Insulin Aspart, Recombinant 100 u/ml 10 ml vial SC SCH (08:30)
[2017-05-24] MEDS ORDERED: Pantoprazole 40 mg EC Tab PO SCH (10:00)
[2017-05-24] MEDS ORDERED: Enoxaparin 40 mg Syringe SC SCH (10:00)
[2017-05-24] MEDS ORDERED: (Novolog) Insulin Aspart, Recombinant 100 u/ml 10 ml vial SC SCH (11:08)
--- NOTE | 2017-05-24 13:55 | CP.PCM.PN ---
Subjective - Date & Time of Evaluation Date of Evaluation: 05/24/17 Time of Evaluation: 13:00 - Subjective Subjective: patient has no complaints today. No chest pain or dyspnea. Objective - Vital Signs/Intake and Output Vital Signs (last 24 hours): Temp Pulse Resp BP Pulse Ox 98.1 F 63 20 144/89 95 05/24/17 08:33 05/24/17 08:33 05/24/17 08:33 05/24/17 10:07 05/24/17 08:33 Intake and Output: 05/24/17 05/24/17 06:59 18:59 Intake Total 540 Balance 540 - Medications Medications: Current Medications Aspirin (Ecotrin) 81 mg PO DAILY [facility] Last Admin: 05/24/17 10:07 Dose: 81 mg Carvedilol (Coreg) 6.25 mg PO BID [facility] Last Admin: 05/24/17 10:08 Dose: 6.25 mg Enoxaparin Sodium (Lovenox) 40 mg SC DAILY [facility] Last Admin: 05/24/17 10:08 Dose: 40 mg Furosemide (Lasix) 40 mg PO DAILY [facility] Last Admin: 05/24/17 10:07 Dose: 40 mg Gabapentin (Neurontin) 400 mg PO TID [facility] Last Admin: 05/24/17 13:43 Dose: 400 mg Glimepiride (Amaryl) 4 mg PO DAILY [facility] Last Admin: 05/24/17 10:07 Dose: 4 mg Insulin Aspart (Novolog) 0 unit SC [facility] PRN Reason: Protocol Last Admin: 05/24/17 11:47 Dose: 10 unit Insulin Glargine (Lantus) 20 unit SC [facility] Last Admin: 05/24/17 08:41 Dose: 1,000 mg Pantoprazole Sodium (Protonix Ec Tab) 40 mg PO DAILY [facility] Last Admin: 05/24/17 10:07 Dose: 40 mg Rosuvastatin Calcium (Crestor) 10 mg PO [facility] Last Admin: 05/23/17 21:54 Dose: 10 mg Ticagrelor (Brilinta) 90 mg PO BID [facility] Last Admin: 05/24/17 10:07 Dose: 90 mg - Labs Labs: 05/24/17 07:05 05/24/17 07:05 - Constitutional Appears: Non-toxic - Head Exam Head Exam: NORMAL INSPECTION - Eye Exam Eye Exam: Normal appearance - ENT Exam ENT Exam: Mucous Membranes Moist - Neck Exam Neck Exam: Full ROM - Respiratory Exam Respiratory Exam: NORMAL BREATHING PATTERN - Cardiovascular Exam Cardiovascular Exam: REGULAR RHYTHM - GI/Abdominal Exam GI & Abdominal Exam: Normal Bowel Sounds - Rectal Exam Rectal Exam: Deferred - Extremities Exam Extremities Exam: Pedal Edema - Back Exam Back Exam: NORMAL INSPECTION - Neurological Exam Neurological Exam: Alert - Psychiatric Exam Psychiatric exam: Normal Affect - Skin Skin Exam: Normal Color Assessment and Plan (1) Near syncope Assessment & Plan: blood sugars are better controlled Status: Acute (2) CAD (coronary artery disease) of artery bypass graft Assessment & Plan: recommend antiplatelet therapy Status: Acute (3) Diabetes Assessment & Plan: as above Status: Acute (4) Hypertension Assessment & Plan: blood pressure control Status: Acute
[2017-05-24 14:36] LABS: CK-MB 6.12 ng/mL (0.0-3.38)
--- NOTE | 2017-05-24 14:48 | CARD ---
APPROVED REPORT EKG Measurement Heart [id number] <Conclusion> Atrial-sensed ventricular-paced rhythm Abnormal ECG
--- NOTE | 2017-05-24 15:17 | CP.PCM.PN ---
Subjective - Date & Time of Evaluation Date of Evaluation: 05/24/17 Time of Evaluation: 15:15 - Subjective Subjective: 66 Y/O MALE SEEN AND EXAMINED TODAY BY DR Cory PAVON, DENIES ANY CP, SOB, PALPITATIONS, RESP EASY AND UNLABORED. NAD, PT CLEARED FOR D/C PER DR PAVON AND DR FISHER, CONTINUE HOME MEDS, PT ADVISED TO MONITOR HIS BS, METFORMIN AND GLIMEPRIDE, F/U WITH DR MURRAY IN THE OFFICE, RETURN TO ED IF ANY WORSENING S/S , AGREE, VERBALIZE UNDERSTANDING. Objective - Vital Signs/Intake and Output Vital Signs (last 24 hours): Temp Pulse Resp BP Pulse Ox 98.1 F 63 20 144/89 95 05/24/17 08:33 05/24/17 08:33 05/24/17 08:33 05/24/17 10:07 05/24/17 08:33 Intake and Output: 05/24/17 05/24/17 06:59 18:59 Intake Total 540 Balance 540 - Medications Medications: Current Medications Aspirin (Ecotrin) 81 mg PO DAILY [facility] Last Admin: 05/24/17 10:07 Dose: 81 mg Carvedilol (Coreg) 6.25 mg PO BID [facility] Last Admin: 05/24/17 10:08 Dose: 6.25 mg Enoxaparin Sodium (Lovenox) 40 mg SC DAILY [facility] Last Admin: 05/24/17 10:08 Dose: 40 mg Furosemide (Lasix) 40 mg PO DAILY [facility] Last Admin: 05/24/17 10:07 Dose: 40 mg Gabapentin (Neurontin) 400 mg PO TID [facility] Last Admin: 05/24/17 13:43 Dose: 400 mg Glimepiride (Amaryl) 4 mg PO DAILY [facility] Last Admin: 05/24/17 10:07 Dose: 4 mg Insulin Aspart (Novolog) 0 unit SC [facility] PRN Reason: Protocol Last Admin: 05/24/17 11:47 Dose: 10 unit Insulin Glargine (Lantus) 20 unit SC [facility] Last Admin: 05/24/17 08:41 Dose: 1,000 mg Pantoprazole Sodium (Protonix Ec Tab) 40 mg PO DAILY [facility] Last Admin: 05/24/17 10:07 Dose: 40 mg Rosuvastatin Calcium (Crestor) 10 mg PO HS [facility] Last Admin: 05/23/17 21:54 Dose: 10 mg Ticagrelor (Brilinta) 90 mg PO BID [facility] Last Admin: 05/24/17 10:07 Dose: 90 mg - Labs Labs: 05/24/17 07:05 05/24/17 07:05
[2017-05-24 16:03] VITALS: BP 144/78; PULSE 68; TEMP 98.3; O2SAT 96
[2017-05-24] MEDS ORDERED: (Lantus) Insulin Glargine, Recombinant SC SCH (22:00)
== END 2017-05-24 17:15 | disposition home or self-care (01) | DRG 638 ==
LOC: C.ER 04:51 → C.9E 07:01 → C.6T 08:07
PROVIDERS: ADMIT Internal Medicine Nephrology; ATTEND Internal Medicine Nephrology
DX: E11.65 Type 2 diabetes mellitus with hyperglycemia (principal); I69.351 Hemiplegia and hemiparesis following cerebral infarction affecting right dominant side; I11.0 Hypertensive heart disease with heart failure; I50.9 Heart failure, unspecified; E11.40 Type 2 diabetes mellitus with diabetic neuropathy, unspecified; R55 Syncope and collapse; I25.10 Atherosclerotic heart disease of native coronary artery without angina pectoris; F32.9 Major depressive disorder, single episode, unspecified; Z95.1 Presence of aortocoronary bypass graft; Z95.2 Presence of prosthetic heart valve; Z79.4 Long term (current) use of insulin; Z87.891 Personal history of nicotine dependence; Z95.0 Presence of cardiac pacemaker; E78.00 Pure hypercholesterolemia, unspecified; E78.5 Hyperlipidemia, unspecified

== ENCOUNTER 2017-07-08 07:30 | Inpatient (IN) | payer MEDICARE, MEDICAID ==
[2017-07-08 07:30] VITALS: BMI 33.9
[2017-07-08] MEDS ORDERED: Aspirin 325 mg EC Tablets PO STA (08:24)
[2017-07-08] MEDS ORDERED: Aspirin 325 mg EC Tablets PO ONE (08:31)
[2017-07-08 09:03] LABS: BASO # 0.2 K/uL (0.0-0.2); BASO % 1.7 % (0.0-2.0); EOS # 0.4 K/uL (0.0-0.7); EOS % 3.9 % (0.0-4.0); HEMATOCRIT 40.7 % (35.0-51.0); LYMPH # 1.3 K/uL (1.0-4.3); LYMPH % 13.7 % (20.0-40.0); MEAN CORPUSCULAR HEMOGLOBIN 23.9 pg (27.0-31.0); MEAN CORPUSCULAR HGB CONC 30.2 g/dL (33.0-37.0); MEAN PLATELET VOLUME 9.8 fL (7.2-11.7); MONO # 0.7 K/uL (0.0-0.8); MONO % 7.6 % (0.0-10.0); RED CELL DISTRIBUTION WIDTH 18.1 % (11.5-14.5); WHITE BLOOD COUNT 9.8 K/uL (4.8-10.8)
[2017-07-08 09:10] LABS: CHLORIDE 99 mmol/L (98-107); POTASSIUM 4.6 mmol/L (3.6-5.2); SODIUM 138 mmol/L (132-148)
[2017-07-08 09:12] LABS: ALB/GLOB RATIO 1.3 (1.0-2.1); ALKALINE PHOSPHATASE 56 U/L (38-126); AST/SGOT 43 U/L (17-59); BLOOD UREA NITROGEN 21 mg/dL (9-20); CARBON DIOXIDE 27 mmol/L (22-30); GFR AFRICAN-AMERICAN > 60; TOTAL PROTEIN 7.8 g/dL (6.3-8.3)
--- NOTE | 2017-07-08 09:12 | RAD ---
PROCEDURE: CHEST RADIOGRAPH, 1 VIEW HISTORY: SOB COMPARISON: Portable chest 05/23/2017. FINDINGS: LUNGS: Lateral of her border somewhat silhouetted and lingular infiltrate is not completely excluded. No interval right infiltrate. Limited interval linear atelectasis is seen at the left base PLEURA: No pneumothorax or pleural fluid seen. CARDIOVASCULAR: Prominent cardiac silhouette remains with pacemaker in position once again. Prosthetic cardiac valve again evident as well as sternotomy wires. OSSEOUS STRUCTURES: No significant abnormalities. VISUALIZED UPPER ABDOMEN: Normal. OTHER FINDINGS: None. IMPRESSION: Lingular infiltrate or atelectasis is not completely excluded with the remainder of the examination stable in the interval including somewhat prominent appearing cardiac silhouette. No pulmonary vascular derangement identified.
[2017-07-08 09:13] LABS: ALT/SGPT 52 U/L (21-72); CALCIUM 9.2 mg/dl (8.6-10.4); GLUCOSE,RANDOM 316 mg/dL (75-110)
--- NOTE | 2017-07-08 09:35 | C.PDOC ---
History Of Present Illness 67 year old male presents to the ED with complaints of shortness of breath and congestion for one week. Patient also notes slight swelling to the right arm and leg compared to the left. He denies fever, chest pain, or other complaints at this time. Time Seen by Provider: 07/08/17 07:39 Chief Complaint (Nursing): Shortness Of Breath History Per: Patient History/Exam Limitations: no limitations Onset/Duration Of Symptoms: Days (1 week) Current Symptoms Are (Timing): Still Present Associated Symptoms: denies: Fever, Chest Pain Recent travel outside of the [place]: No Past Medical History Reviewed: Historical Data, Nursing Documentation, Vital Signs Vital Signs: Last Vital Signs Temp 97.4 F L 07/08/17 07:45 Pulse 61 07/08/17 11:46 Resp 20 07/08/17 12:33 BP 123/94 H 07/08/17 11:46 Pulse Ox 100 07/08/17 11:46 - Medical History PMH: Asthma, CAD, Cardia Arrhythmia, CHF, CVA (affecting right side of body), Depression (denies), Diabetes, Fractures, Gastritis, HTN, Hypercholesterolemia Surgical History: CABG (BENDER to LAD, SVG to OM1,OM2, SVG to Diag, SVG to PDA. AVR/MVR (bioprosth)), Coronary Stent, Pacemaker - [facility] Procedures CORONAR ARTERIOGR-2 CATH (07/19/14) DILATION OF CORONARY ARTERY, ONE SITE, PERCUTANEOUS APPROACH (05/20/16) INSERTION OF INFUSION DEV INTO SUP VENA CAVA, PERC APPROACH (01/19/17) INSPECTION OF LARYNX, ENDO (04/23/16) LEFT HEART CARDIAC CATH (07/19/14) LT HEART ANGIOCARDIOGRAM (07/19/14) MEASURE OF CARDIAC SAMPL & PRESSURE, L HEART, PERC APPROACH (05/20/16) PLAIN RADIOGRAPHY OF L INT MAMM GRAFT USING OTH CONTRAST (05/20/16) PLAIN RADIOGRAPHY OF LEFT HEART USING OTHER CONTRAST (05/20/16) PLAIN RADIOGRAPHY OF MULT COR A GRAFT USING OTH CONTRAST (05/20/16) ULTRASONOGRAPHY OF RIGHT AND LEFT HEART, TRANSESOPHAGEAL (01/19/17) Family History: States: Unknown Family Hx - Social History Hx Tobacco Use: No Hx Alcohol Use: Yes (40 years ago) Hx Substance Use: Yes (40 years ago) - Immunization History Hx Tetanus Toxoid Vaccination: Yes Hx Influenza Vaccination: Yes Hx Pneumococcal Vaccination: Yes Review Of Systems Except As Marked, All Systems Reviewed And Found Negative. Constitutional: Negative for: Fever, Chills Cardiovascular: Negative for: Chest Pain, Palpitations Respiratory: Positive for: Shortness of Breath (and congestion ). Negative for : Cough Gastrointestinal: Negative for: Nausea, Vomiting, Abdominal Pain, Diarrhea Musculoskeletal: Positive for: Other (right arm and leg swelling after CVA) Neurological: Negative for: Weakness, Numbness Physical Exam - Physical Exam Appears: Non-toxic, No Acute Distress Skin: Warm, Dry Head: Atraumatic Eye(s): bilateral: Normal Inspection Oral Mucosa: Moist Neck: Supple Chest: Symmetrical, No Deformity Cardiovascular: Rhythm Regular Respiratory: No Accessory Muscle Use, No Rales, No Rhonchi, Wheezing (mild diffuse expiratory wheezing ) Gastrointestinal/Abdominal: Soft, No Tenderness, No Distention, No Guarding, No Rebound Extremity: Normal ROM, No Tenderness, No Calf Tenderness, Capillary Refill ( good capillary refill, less than two seconds. ), No Swelling ED Course And Treatment - Laboratory Results Result Diagrams: 07/08/17 09:00 07/08/17 08:53 ECG: Interpreted By Me, Viewed By Me Interpretation Of ECG: sinus rhythm with frequent PVCs, bigeminy pattern. Rate From EC O2 Sat by Pulse Oximetry: 94 (room air ) Progress Note: EKG, UA, CXR, and blood work were ordered. Patient was given ecotrin. Case was d/w patient's Sleep Scientist who instructed to admit patient to tele on service. Case was d/w who accepted patient for an admission. Disposition - Disposition Disposition: HOSPITALIZED Disposition Time: 11:07 Condition: FAIR - Clinical Impression Clinical Impression: NSTEMI (non-ST elevated myocardial infarction), Dyspnea - Scribe Statement The provider has reviewed the documentation as recorded by the Scribe Miriam Atkinson All medical record entries made by the Scribe were at my direction and personally dictated by me. I have reviewed the chart and agree that the record accurately reflects my personal performance of the history, physical exam, medical decision making, and the department course for this patient. I have also personally directed, reviewed, and agree with the discharge instructions and disposition. Decision To Admit - Pt Status Changed To: Hospital Disposition Of: Inpatient - Admit Certification Admit to Inpatient:: After my assessment, the patient will require hospitalization for at least two midnights. This is because of the severity of symptoms shown, intensity of services needed, and/or the medical risk in this patient being treated as an outpatient. - InPatient: Physician Admission Certification: I certify that this patient requires 2 or more midnights of care for the following reason:: Patient with NSTEMI will need more than 2 days of hospitalization. - . Bed Request Type: Telemetry Admitting Physician: Warren Negrete Patient Diagnosis: NSTEMI (non-ST elevated myocardial infarction), Dyspnea
[2017-07-08 10:32] LABS: RBC URINE 1 /hpf (0-3); URINE BILIRUBIN NEGATIVE (NEGATIVE); URINE BLOOD NEGATIVE (NEGATIVE); URINE COLOR Yellow (YELLOW); URINE GLUCOSE (UA) 3+ mg/dL (Normal); URINE KETONE NEGATIVE (NEGATIVE); URINE LEUKOCYTE ESTERASE NEG Leu/uL (Negative); URINE PROTEIN 2+ mg/dL (NEGATIVE); URINE UROBILINOGEN NORMAL mg/dL (0.2-1.0); WBC URINE < 1 /hpf (0-5)
[2017-07-08] MEDS ORDERED: Heparin25000 units/250ml 1/2NS 25,000 UNITS/250 ML BAG IV PRN (18:00)
[2017-07-09 11:06] LABS: BASO # 0.1 K/uL (0.0-0.2); BASO % 1.2 % (0.0-2.0); EOS # 0.5 K/uL (0.0-0.7); EOS % 4.7 % (0.0-4.0); HEMATOCRIT 37.6 % (35.0-51.0); LYMPH # 1.7 K/uL (1.0-4.3); MEAN CELL VOLUME 77.8 fL (80.0-94.0); MEAN CORPUSCULAR HEMOGLOBIN 23.7 pg (27.0-31.0); MEAN CORPUSCULAR HGB CONC 30.5 g/dL (33.0-37.0); MEAN PLATELET VOLUME 9.6 fL (7.2-11.7); MONO # 0.9 K/uL (0.0-0.8); MONO % 8.8 % (0.0-10.0); NRBC % 0.1 % (0.0-2.0); RED CELL DISTRIBUTION WIDTH 17.8 % (11.5-14.5); WHITE BLOOD COUNT 9.9 K/uL (4.8-10.8)
--- NOTE | 2017-07-09 12:13 | CP.PCM.CON ---
History of Present Illness - History of Present Illness History of Present Illness: I was asked to see patient by Dr. Negrete. Patient is a 67 year old male with a history of CAD s/p CABG AVR/MVR DM, HTN who presents with chest pain. The patient describes substernal chest pressure and associated dyspnea. Symptoms were intermittent and associated with dyspnea. The patient presented with progression of symptoms and ruled in for a myocardial infarction. The patient was started on a heparin drip, and now is pain free. Review of Systems - Constitutional Constitutional: absent: As Per HPI, Anorexia, Chills, Daytime Sleepiness, Excessive Sweating, Fatigue, Fever, Frequent Falls, Headache, Increased Appetite , Lethargy, Malaise, Night Sweats, Snoring, Sleep Apnea, Weight Gain, Weight Loss, Weakness, Other - EENT Eyes: absent: As Per HPI, Blind Spots, Blurred Vision, Change in Vision, Decreased Night Vision, Diplopia, Discharge, Dry Eye, Exophthalmos, Floaters, Irritation, Itchy Eyes, Loss of Peripheral Vision, Pain, Photophobia, Requires Corrective Lenses, Sees Flashes, Spots in Vision, Tunnel Vision, Other Visual Disturbances, Loss of Vision, Other Ears: absent: As Per HPI, Decreased Hearing, Ear Discharge, Ear Pain, Tinnitus, Abnormal Hearing, Disequilibrium, Dizziness, Other Nose/Mouth/Throat: absent: As Per HPI, Epistaxis, Nasal Congestion, Nasal Discharge, Nasal Obstruction, Nasal Trauma, Nose Pain, Post Nasal Drip, Sinus Pain, Sinus Pressure, Bleeding Gums, Change in Voice, Dental Pain, Dry Mouth, Dysphagia, Halitosis, Hoarsness, Lip Swelling, Mouth Lesions, Mouth Pain, Odynophagia, Sore Throat, Throat Swelling, Tongue Swelling, Facial Pain, Neck Pain, Neck Mass, Other - Cardiovascular Cardiovascular: Chest Pain, Dyspnea - Respiratory Respiratory: Dyspnea - Gastrointestinal Gastrointestinal: absent: As Per HPI, Abdominal Pain, Belching, Bloating, Change in Bowel Habits, Change in Stool Character, Coffee Ground Emesis, Constipation, Cramping, Diarrhea, Dyspepsia, Dysphagia, Early Satiety, Excessive Flatus, Fecal Incontinence, Heartburn, Hematemesis, Hematochezia, Loose Stools, Melena, Nausea, Odynophagia, Temesmus, Vomiting, Other - Genitourinary Genitourinary: absent: As Per HPI, Change in Urinary Stream, Difficulty Urinating, Dysuria, Flank Pain, Hematuria, Pyuria, Nocturia, Urinary Incontinence, Urinary Frequency, Urinary Hesitance, Urinary Urgency, Voiding Freq/Small Amts, Freq UTI, Hx Renal/Bladder Calculi, Hx /Renal Surgery, Bladder Distension, Other - Musculoskeletal Musculoskeletal: absent: As Per HPI, Abnormal Gait, Arthralgias, Atrophy, Back Pain, Deformity, Joint Swelling, Limited Range of Motion, Loss of Height, Muscle Cramps, Muscle Weakness, Myalgias, Neck Pain, Numbness, Radiating Pain into Limb, Stiffness, Tingling, Other - Integumentary Integumentary: absent: As Per HPI, Acne, Alopecia, Bleeding Lesions, Change in Hair, Change in Nails, Change in Pigmentation, Changing Lesions, Dry Skin, Erythema, Furuncle, Hirsutism, Lesions, New Lesions, Non-Healing Lesions, Photosensitivity, Pruritus, Rash, Skin Pain, Skin Ulcer, Sores, Striae, Swelling , Unusual Bruising, Wounds, Jaundice, Other - Neurological Neurological: absent: As Per HPI, Abnormal Gait, Abnormal Hearing, Abnormal Movements, Abnormal Speech, Behavioral Changes, Burning Sensations, Confusion, Convulsions, Disequilibrium, Dizziness, Numbness, Focal Weakness, Frequent Falls , Headaches, Lack of Coordination, Loss of Vision, Memory Loss, Paresthesias, Radicular Pain, Restless Legs, Sensory Deficit, Syncope, Tingling, Tremor, Vertigo, Weakness, Other Visual Disturbances, Other - Psychiatric Psychiatric: absent: As Per HPI, Abnormal Sleep Pattern, Anhedonia, Anxiety, Auditory Hallucinations, Behavioral Changes, Change in Appetite, Change in Libido, Confusion, Depression, Difficulty Concentrating, Hallucinations, Homicidal Ideation, Hopelessness, Irritability, Memory Loss, Mood Swings, Panic Attacks, Paranoia, Suicidal Ideation, Visual Hallucinations, Tactile Hallucinations, Other - Endocrine Endocrine: absent: As Per HPI, Change in Body Appearance, Change in Libido, Cold Intolorance, Deepening of Voice, Excessive Sweating, Fatigue, Flushing, Heat Intolorance, Increase in Ring/Shoe/Hat Size, Palpitations, Polydipsia, Polyphagia, Polyuria, Other - Hematologic/Lymphatic Hematologic: absent: As Per HPI, Easy Bleeding, Easy Bruising, Lymphadenopathy, Other Past Patient History - Infectious Disease Hx of Infectious Diseases: None - Past Medical History & Family History Past Medical History?: Yes - Past Social History Smoking Status: Former Smoker - CARDIAC Hx Cardia Arrhythmia: Yes Hx Congestive Heart Failure: Yes Hx Hypercholesterolemia: Yes Hx Hypertension: Yes Hx Pacemaker: Yes - PULMONARY Hx Asthma: Yes - HEENT Hx HEENT Problems: No - RENAL Hx Chronic Kidney Disease: No - ENDOCRINE/METABOLIC Hx Endocrine Disorders: Yes Hx Diabetes Mellitus Type 2: Yes - INTEGUMENTARY Hx Dermatological Problems: No Other/Comment: abdominal area with surgical scars - MUSCULOSKELETAL/RHEUMATOLOGICAL Hx Fractures: Yes - GASTROINTESTINAL Hx Gastritis: Yes - PSYCHIATRIC Hx Depression: Yes (denies) Hx Substance Use: Yes (40 years ago) - SURGICAL HISTORY Hx Coronary Artery Bypass Graft: Yes (BENDER to LAD, SVG to OM1,OM2, SVG to Diag, SVG to PDA. AVR/MVR (bioprosth)) Hx Coronary Stent: Yes - ANESTHESIA Hx Anesthesia: Yes Hx Anesthesia Reactions: No Hx Malignant Hyperthermia: No Meds Allergies/Adverse Reactions: Allergies Allergy/AdvReac Type Severity Reaction Status Date / Time iodine Allergy Intermediate SHORTNESS Verified 07/08/17 07:52 OF BREATH shellfish derived Allergy Intermediate ANGIOEDEMA Verified 07/08/17 07:52 milk Allergy Mild SHORTNESS Verified 07/08/17 07:52 OF BREATH - Medications Medications: Current Medications Aspirin (Ecotrin) 81 mg PO DAILY [facility] Last Admin: 07/09/17 09:19 Dose: 81 mg Carvedilol (Coreg) 12.5 mg PO BID [facility] Last Admin: 07/09/17 09:19 Dose: 12.5 mg Furosemide (Lasix) 40 mg PO DAILY [facility] Last Admin: 07/09/17 09:18 Dose: 40 mg Gabapentin (Neurontin) 400 mg PO TID [facility] Last Admin: 07/09/17 09:45 Dose: 400 mg Glimepiride (Amaryl) 4 mg PO DAILY [facility] Last Admin: 07/09/17 09:19 Dose: 4 mg Metformin HCl (Glucophage) 1,000 mg PO BID [facility] Last Admin: 07/09/17 09:19 Dose: 1,000 mg Rosuvastatin Calcium (Crestor) 10 mg PO HS [facility] Last Admin: 07/08/17 22:04 Dose: 10 mg Ticagrelor (Brilinta) 90 mg PO BID [facility] Last Admin: 07/08/17 18:58 Dose: 90 mg Physical Exam - Constitutional Appears: Non-toxic - Head Exam Head Exam: NORMAL INSPECTION - Eye Exam Eye Exam: Normal appearance - ENT Exam ENT Exam: Mucous Membranes Moist - Neck Exam Neck exam: Positive for: Full Rom - Respiratory Exam Respiratory Exam: NORMAL BREATHING PATTERN - Cardiovascular Exam Cardiovascular Exam: REGULAR RHYTHM - GI/Abdominal Exam GI & Abdominal Exam: Normal Bowel Sounds - Rectal Exam Rectal Exam: Deferred - Extremities Exam Extremities exam: Positive for: pedal edema - Back Exam Back exam: NORMAL INSPECTION - Neurological Exam Neurological exam: Alert, Oriented x3 - Psychiatric Exam Psychiatric exam: Normal Affect - Skin Skin Exam: Normal Color Results - Vital Signs Recent Vital Signs: Last Vital Signs Temp 98.3 F 07/09/17 07:05 Pulse 63 07/09/17 07:05 Resp 20 07/09/17 07:05 BP 111/64 07/09/17 09:19 Pulse Ox 94 L 07/09/17 07:05 - Labs Result Diagrams: 07/09/17 11:01 07/08/17 08:53 Labs: Laboratory Results - last 24 hr 07/08/17 07/08/17 07/08/17 12:49 16:24 16:50 WBC RBC Hgb Hct MCV MCH MCHC RDW Plt Count MPV Neut % (Auto) Lymph % (Auto) Patrick % (Auto) Eos % (Auto) Baso % (Auto) Neut # Lymph # Patrick # Eos # Baso # APTT POC Glucose (mg/dL) 296 H 286 H Total Creatine Kinase 339 H CK-MB (Mass) 6.21 H Troponin I, Quant 0.2270 H* 07/08/17 07/09/17 07/09/17 21:04 02:04 02:04 WBC RBC Hgb Hct MCV MCH MCHC RDW Plt Count MPV Neut % (Auto) Lymph % (Auto) Patrick % (Auto) Eos % (Auto) Baso % (Auto) Neut # Lymph # Patrick # Eos # Baso # APTT 72 H D POC Glucose (mg/dL) 309 H Total Creatine Kinase 359 H CK-MB (Mass) 6.80 H Troponin I, Quant 0.2410 H* 07/09/17 07/09/17 07/09/17 05:58 11:01 11:01 WBC RBC Hgb Hct MCV MCH MCHC RDW Plt Count MPV Neut % (Auto) Lymph % (Auto) Patrick % (Auto) Eos % (Auto) Baso % (Auto) Neut # Lymph # Patrick # Eos # Baso # APTT 66 H D POC Glucose (mg/dL) 232 H Total Creatine Kinase 336 H CK-MB (Mass) 6.54 H Troponin I, Quant 0.2060 H* 07/09/17 07/09/17 11:01 11:23 WBC 9.9 RBC 4.83 Hgb 11.4 L Hct 37.6 MCV 77.8 L MCH 23.7 L MCHC 30.5 L RDW 17.8 H Plt Count 187 MPV 9.6 Neut % (Auto) 68.3 Lymph % (Auto) 17.0 L Patrick % (Auto) 8.8 Eos % (Auto) 4.7 H Baso % (Auto) 1.2 Neut # 6.7 Lymph # 1.7 Patrick # 0.9 H Eos # 0.5 Baso # 0.1 APTT POC Glucose (mg/dL) 378 H Total Creatine Kinase CK-MB (Mass) Troponin I, Quant - EKG Data EKG Interpreted by: Myself EKG shows normal: Sinus rhythm Assessment & Plan (1) NSTEMI (non-ST elevated myocardial infarction) Assessment and Plan: patient has high risk features and elevated troponin. I recommend cardiac catheterization. Patient is currently pain free and troponin decreasing. I will d/c heparin. Status: Acute (2) CAD (coronary artery disease) of artery bypass graft Assessment and Plan: continue antiplatelet therapy. Status: Acute (3) Diabetes Assessment and Plan: risk factor for graft occlusion Status: Acute (4) Hypertension Assessment and Plan: blood pressure control Status: Acute
--- NOTE | 2017-07-10 10:14 | CP.PCM.PN ---
Subjective - Date & Time of Evaluation Date of Evaluation: 07/10/17 Time of Evaluation: 07:35 - Subjective Subjective: PGY2 Resident - Medicine Progress Note HPI: This 67yo Male with PMHx Asthma, CAD, Cardia Arrhythmia, CHF, CVA 2011 ( affecting right side of body), Diabetes, Fractures, Gastritis, HTN, Hypercholesterolemia - presents to the ED on 07/08/17 with complaints of intermittent chest pain radiating to his left shoulder, shortness of breath, and congestion for one week. Patient also notes slight swelling to the right arm and leg for several days. The patient presented with progression of symptoms and ruled in for a myocardial infarction 2/2 to elevated troponins. The patient was started on a heparin drip in the ED and seen by Cardiology, Dr. Montanez. Today, 07/10/17, patient has no acute complaints, is resting comfortably. No overnight events per nursing. He is scheduled for a cardiac cath with Dr. Montanez later today. PMHx: Asthma, CAD, Cardia Arrhythmia, CHF, CVA (affecting right side of body), Diabetes, Fractures, Gastritis, HTN, Hypercholesterolemia PSHx: Open heart surgery in 2011, replaced torn aortic valve, tracheotomy in 2011, gastric tube placement in 2011 with followup complications resulting in 3x abdominal open lap surgeries. Pacemaker placed sometimes around [id number] Meds: see EMR Allergies: iodine, shellfish, milk, NKDA Fam hx: father- [place]- 51, 1/2 brother has dementia Social hx: Smoked 2 ppd for 20 years, quit 40 years ago. Drank about 3x times per week, "a lot", for about 30 years, quit 34 years ago per pt. Admits to drug hx- cocaine, marijuana Review of Systems: -Gen: denies fever, chills, headache, lethargy, weakness. -HEENT: denies dizziness, change in vision, change in hearing, sore throat, dysphagia, nasal congestion, mucous. -Cardio: denies chest pain, palpitations, lower extremity edema, orthopnea. -Resp: denies cough, dyspnea, hemoptysis, wheezing, pain on inspiration. -GI: denies abdominal pain, nausea/vomiting, diarrhea/constipation, hematochezia , hematemesis. -: denies dysuria, urinary freq, incontinence, hematuria, change in urinary stream. -MSK: denies back pain, muscle weakness, radiating pain. -Skin: denies itching, rash, lesions. -Neuro: denies confusion, numbness, tingling, focal weakness, radicular pain, syncope. -Psych: denies anxiety, depression, H/I, S/I, hallucinations. Objective - Vital Signs/Intake and Output Vital Signs (last 24 hours): Temp Pulse Resp BP Pulse Ox 97.4 F L 59 L 18 143/87 98 07/10/17 07:05 07/10/17 08:34 07/10/17 07:05 07/10/17 09:42 07/10/17 07:05 Intake and Output: 07/10/17 07/10/17 06:59 18:59 Intake Total 500 Balance 500 - Medications Medications: Current Medications Aspirin (Ecotrin) 81 mg PO DAILY [facility] Last Admin: 07/10/17 09:44 Dose: Not Given Carvedilol (Coreg) 12.5 mg PO BID [facility] Last Admin: 07/10/17 09:42 Dose: 12.5 mg Furosemide (Lasix) 40 mg PO DAILY [facility] Last Admin: 07/09/17 09:18 Dose: 40 mg Gabapentin (Neurontin) 400 mg PO TID [facility] Last Admin: 07/10/17 09:41 Dose: 400 mg Glimepiride (Amaryl) 4 mg PO DAILY [facility] Last Admin: 07/10/17 09:41 Dose: 4 mg Metformin HCl (Glucophage) 1,000 mg PO BID [facility] Last Admin: 07/10/17 09:42 Dose: 1,000 mg Rosuvastatin Calcium (Crestor) 10 mg PO HS [facility] Last Admin: 07/09/17 21:13 Dose: 10 mg Ticagrelor (Brilinta) 90 mg PO BID [facility] Last Admin: 07/10/17 09:44 Dose: Not Given - Labs Labs: 07/09/17 11:01 PT 11.7 SECONDS (9.7-12.2) 07/08/17 08:53 INR 1.0 07/08/17 08:53 APTT 66 SECONDS (21-34) H D 07/09/17 11:01 - Additional Findings Additional findings: - Constitutional Appears: Non-toxic, No acute distress - Head Exam Head Exam: NORMAL INSPECTION, Normocephalic - Eye Exam Eye Exam: Normal appearance - ENT Exam ENT Exam: Mucous Membranes Moist - Respiratory Exam Respiratory Exam: NORMAL BREATHING PATTERN, no wheezes - Cardiovascular Exam Cardiovascular Exam: REGULAR RHYTHM, S1, S2 - GI/Abdominal Exam GI & Abdominal Exam: Normal Bowel Sounds - Rectal Exam Rectal Exam: Deferred - Extremities Exam Extremities exam: Positive for: pedal edema (bilateral) - Neurological Exam Neurological exam: Alert, Oriented x3 - Psychiatric Exam Psychiatric exam: Normal Affect, Normal mood - Skin Skin Exam: Normal Color, Warm Assessment and Plan - Assessment and Plan (Free Text) Assessment: NSTEMI (non-ST elevated myocardial infarction) 07/10: cardiac cath performed by Dr. Montanez, Patent BENDER to LAD. Occluded SVGs ( previously stented). d/c Brilinta Cardiology consult, Dr. Montanez, f/u recs -patient has high risk features and elevated troponin. Patient is currently pain free and troponin decreasing. -d/c heparin. Aspirin (Ecotrin) 81 mg PO DAILY [facility] Carvedilol (Coreg) 12.5 mg PO BID [facility] Status: Acute CAD (coronary artery disease) of artery bypass graft Cardiology consult, Dr. Montanez, f/u recs Rosuvastatin Calcium (Crestor) 10 mg PO HS [facility] Diabetes 07/10: glucose 200s-300s -> start Novolog ISS - high dose risk factor for graft occlusion Gabapentin (Neurontin) 400 mg PO TID [facility] Glimepiride (Amaryl) 4 mg PO DAILY [facility] Metformin HCl (Glucophage) 1,000 mg PO BID [facility] Hypertension blood pressure control Furosemide (Lasix) 40 mg PO DAILY [facility] Carvedilol (Coreg) 12.5 mg PO BID [facility] Prophylaxis Heparin D/C'd NS0.9% 75cc/hr
[2017-07-10 13:59] LABS: BASO # 0.1 K/uL (0.0-0.2); EOS # 0.4 K/uL (0.0-0.7); EOS % 4.7 % (0.0-4.0); HEMATOCRIT 36.7 % (35.0-51.0); LYMPH # 1.1 K/uL (1.0-4.3); LYMPH % 13.4 % (20.0-40.0); MEAN CELL VOLUME 78.4 fL (80.0-94.0); MEAN CORPUSCULAR HEMOGLOBIN 24.1 pg (27.0-31.0); MEAN CORPUSCULAR HGB CONC 30.7 g/dL (33.0-37.0); MEAN PLATELET VOLUME 9.5 fL (7.2-11.7); MONO # 0.9 K/uL (0.0-0.8); MONO % 10.3 % (0.0-10.0); RED CELL DISTRIBUTION WIDTH 17.9 % (11.5-14.5); WHITE BLOOD COUNT 8.4 K/uL (4.8-10.8)
[2017-07-10 14:18] LABS: ALB/GLOB RATIO 1.1 (1.0-2.1); ALKALINE PHOSPHATASE 52 U/L (38-126); ALT/SGPT 43 U/L (21-72); AST/SGOT 33 U/L (17-59); BILIRUBIN,TOTAL 0.7 mg/dL (0.2-1.3); BLOOD UREA NITROGEN 23 mg/dL (9-20); CALCIUM 8.6 mg/dl (8.6-10.4); CARBON DIOXIDE 24 mmol/L (22-30); CHLORIDE 96 mmol/L (98-107); GFR AFRICAN-AMERICAN > 60; GLUCOSE,RANDOM 268 mg/dL (75-110); MAGNESIUM 1.7 mg/dL (1.6-2.3); PHOSPHOROUS 3.9 mg/dL (2.5-4.5); POTASSIUM 4.5 mmol/L (3.6-5.2); SODIUM 136 mmol/L (132-148); TOTAL PROTEIN 7.2 g/dL (6.3-8.3)
[2017-07-10] MEDS ORDERED: DiphenhydrAMINE 50 mg/ml Inj ONE (15:56)
[2017-07-10] MEDS ORDERED: Midazolam 2 MG/2 ML VIAL ONE (17:18)
[2017-07-10] MEDS ORDERED: Sodium Chloride 0.9% 500 ML IV SCH (17:45)
--- NOTE | 2017-07-10 17:52 | CP.PCM.PN ---
Subjective - Date & Time of Evaluation Date of Evaluation: 07/10/17 Time of Evaluation: 17:45 - Subjective Subjective: cardiac cath performed. Patent BENDER to LAD. Occluded SVGs (previously stented). Plan: medical therapy d/c Brilinta. ASA 81 mg daily. Objective - Vital Signs/Intake and Output Vital Signs (last 24 hours): Temp Pulse Resp BP Pulse Ox 97.4 F L 59 L 18 143/87 98 07/10/17 07:05 07/10/17 08:34 07/10/17 07:05 07/10/17 09:42 07/10/17 07:05 Intake and Output: 07/10/17 07/10/17 06:59 18:59 Intake Total 500 Balance 500 - Medications Medications: Current Medications Aspirin (Ecotrin) 81 mg PO DAILY [facility] Last Admin: 07/10/17 09:44 Dose: Not Given Carvedilol (Coreg) 12.5 mg PO BID [facility] Last Admin: 07/10/17 09:42 Dose: 12.5 mg Furosemide (Lasix) 40 mg PO DAILY [facility] Last Admin: 07/10/17 09:42 Dose: 40 mg Gabapentin (Neurontin) 400 mg PO TID [facility] Last Admin: 07/10/17 13:17 Dose: Not Given Glimepiride (Amaryl) 4 mg PO DAILY [facility] Last Admin: 07/10/17 09:41 Dose: 4 mg Sodium Chloride (Sodium Chloride 0.9%) 500 mls @ 75 mls/hr IV .[id number] [facility] Stop: 07/10/17 21:00 Metformin HCl (Glucophage) 1,000 mg PO BID [facility] Last Admin: 07/10/17 09:42 Dose: 1,000 mg Rosuvastatin Calcium (Crestor) 10 mg PO HS [facility] Last Admin: 07/09/17 21:13 Dose: 10 mg - Labs Labs: 07/10/17 13:51 07/10/17 13:51 PT 11.7 SECONDS (9.7-12.2) 07/08/17 08:53 INR 1.0 07/08/17 08:53 APTT 66 SECONDS (21-34) H D 07/09/17 11:01 Assessment and Plan (1) NSTEMI (non-ST elevated myocardial infarction) Status: Acute (2) CAD (coronary artery disease) of artery bypass graft Status: Acute (3) Diabetes Status: Acute (4) Hypertension Status: Acute
--- NOTE | 2017-07-10 18:04 | CATH ---
APPROVED REPORT Procedure(s) performed: Selective Right and Left Coronary Angiography BENDER Angiogram SVG Angiogram HISTORY The patient is a 67 year-old male with a history of : previous [place], previous CHF, diabetes mellitus with treatment, peripheral vascular disease, coronary artery disease, previous PCI (The PCI date was ), hypertension, previous CABG (The CABG date was ), dyslipidemia, previous valve surgery (The previous valve surgery date was ). INDICATION The indication(s) include : non-STEMI . CASE TECHNIQUE The patient was brought electively to the Cardiac Catheterization Laboratory in a fasting state and was prepped and draped in a sterile manner. The right femoral groin was infiltrated with 2% Lidocaine subcutaneous anesthesia. A sheath was inserted into the right femoral artery without difficulty. Coronary angiography was performed using coronary diagnostic catheters. The left coronary system was accessed and visualized with a Diagnostic catheter. The right coronary system was accessed and visualized with a Diagnostic catheter. The left internal mammary artery was accessed and visualized with a Diagnostic catheter. The saphenous vein graft was accessed and visualized with a Diagnostic catheter. The saphenous vein graft was accessed and visualized with a Diagnostic catheter. Left ventricular/Aortic Valve gradient assessed on pullback. Hemostasis was obtained with manual pressure following sheath removal without any complications. The patient tolerated the procedure well and there were no complications associated with the procedure. Vessel Analysis The patient's coronary anatomy is left dominant. The left main coronary artery is a medium size vessel . There is a 20% stenosis in the distal segment. The left main bifurcates to the left anterior descending and circumflex. The left anterior descending artery is a medium size vessel . There is a 100% stenosis in the proximal segment. The circumflex artery is a medium size vessel . There is a 100% stenosis in the proximal segment. The right coronary artery is a medium size vessel . There is a 100% stenosis in the proximal segment. The left internal mammary artery to the mid left anterior descending artery segment is patent . The saphenous vein graft to the first diagonal branch segment occluded . The saphenous vein graft to the second obtuse marginal branch segment occluded . Conclusion Severe multivessel CAD. Patent BENDER to LAD. Occluded SVGs. Recommendations Aggressive Medical Therapy
[2017-07-10 18:27] VITALS: RESP 20
[2017-07-10] MEDS: (Novolog) Insulin Aspart, Recombinant 100 u/ml 10 ml vial SC SCH (21:41)
[2017-07-10] MEDS ORDERED: Alum-Mag Hydrox-Simethicone Susp (30 mL) PO ONE (23:26)
[2017-07-11 07:05] LABS: BASO % 0.2 % (0.0-2.0); HEMATOCRIT 36.9 % (35.0-51.0); LYMPH # 0.6 K/uL (1.0-4.3); LYMPH % 4.8 % (20.0-40.0); MEAN CELL VOLUME 78.2 fL (80.0-94.0); MEAN CORPUSCULAR HEMOGLOBIN 24.4 pg (27.0-31.0); MEAN CORPUSCULAR HGB CONC 31.1 g/dL (33.0-37.0); MEAN PLATELET VOLUME 9.5 fL (7.2-11.7); MONO # 0.2 K/uL (0.0-0.8); MONO % 1.6 % (0.0-10.0); PLATELET COUNT 188 K/uL (130-400); RED CELL DISTRIBUTION WIDTH 18.2 % (11.5-14.5); WHITE BLOOD COUNT 12.6 K/uL (4.8-10.8)
[2017-07-11 07:35] LABS: CHLORIDE 99 mmol/L (98-107)
[2017-07-11 07:37] LABS: POTASSIUM 5.3 mmol/L (3.6-5.2); SODIUM 137 mmol/L (132-148)
[2017-07-11 07:39] LABS: ALB/GLOB RATIO 1.4 (1.0-2.1); ALKALINE PHOSPHATASE 46 U/L (38-126); ALT/SGPT 45 U/L (21-72); AST/SGOT 37 U/L (17-59); BILIRUBIN,TOTAL 0.8 mg/dL (0.2-1.3); BLOOD UREA NITROGEN 26 mg/dL (9-20); CARBON DIOXIDE 23 mmol/L (22-30); GFR AFRICAN-AMERICAN > 60; GLUCOSE,RANDOM 358 mg/dL (75-110); PHOSPHOROUS 3.3 mg/dL (2.5-4.5); TOTAL PROTEIN 7.5 g/dL (6.3-8.3)
[2017-07-11 07:40] LABS: CALCIUM 8.7 mg/dl (8.6-10.4); MAGNESIUM 1.8 mg/dL (1.6-2.3)
[2017-07-11] MEDS ORDERED: Calcium Gluconate 4.65 mEq/10 ml Inj IVP ONE (07:55)
[2017-07-11 08:09] VITALS: TEMP 97.7
[2017-07-11] MEDS ORDERED: (Novolin R) Insulin Human Regular 100 units/ml vial SC ONE (08:15)
[2017-07-11] MEDS ORDERED: Sod Polystyrene Sulf 15 gm/60 ml Oral Susp PO ONE (08:15)
[2017-07-11] MEDS: (Novolog) Insulin Aspart, Recombinant 100 u/ml 10 ml vial SC SCH ×3 (08:37→17:14)
[2017-07-11 08:39] LABS: NEUTROPHIL 95 % (50-75); TOTAL CELLS COUNTED 100
[2017-07-11] MEDS ORDERED: CALCIUM GLUCONATE IV ONE (09:00)
[2017-07-11] MEDS ORDERED: SODIUM CHLORIDE IV ONE (09:00)
--- NOTE | 2017-07-11 16:06 | CP.PCM.PN ---
Subjective - Date & Time of Evaluation Date of Evaluation: 07/11/17 Time of Evaluation: 07:40 - Subjective Subjective: PGY2 medicine progress note for Dr. Negrete's service: Patient seen and examined. Patient denies chest pain, feels well. Patient s/p cath yesterday with Dr. Montanez. Patient states he had a PMD in the [place] but has not followed recently. Patient advised to establish care at PMD that is more conveniently located as he will need follow up of his diabetes and other medical management. Objective - Vital Signs/Intake and Output Vital Signs (last 24 hours): Temp Pulse Resp BP Pulse Ox 97.7 F 70 20 151/99 H 94 L 07/11/17 07:00 07/11/17 08:14 07/11/17 07:00 07/11/17 09:46 07/11/17 07:00 Intake and Output: 07/11/17 07/11/17 06:59 18:59 Intake Total 1525 Balance 1525 - Medications Medications: Current Medications Aspirin (Ecotrin) 81 mg PO DAILY [facility] Last Admin: 07/11/17 09:47 Dose: 81 mg Carvedilol (Coreg) 12.5 mg PO BID [facility] Last Admin: 07/11/17 09:46 Dose: 12.5 mg Furosemide (Lasix) 40 mg PO DAILY [facility] Last Admin: 07/11/17 09:46 Dose: 40 mg Gabapentin (Neurontin) 400 mg PO TID [facility] Last Admin: 07/11/17 14:07 Dose: 400 mg Glimepiride (Amaryl) 4 mg PO DAILY [facility] Last Admin: 07/11/17 09:47 Dose: 4 mg Insulin Aspart (Novolog) 0 unit SC ACHS [facility] PRN Reason: Protocol Last Admin: 07/11/17 12:37 Dose: 8 unit Metformin HCl (Glucophage) 1,000 mg PO BID [facility] Last Admin: 07/11/17 09:47 Dose: 1,000 mg Rosuvastatin Calcium (Crestor) 10 mg PO HS [facility] Last Admin: 07/10/17 21:41 Dose: 10 mg Sitagliptin Phosphate (Januvia) 100 mg PO DAILY [facility] Last Admin: 07/11/17 12:37 Dose: 100 mg - Labs Labs: 07/11/17 06:18 07/11/17 06:18 PT 11.7 SECONDS (9.7-12.2) 07/08/17 08:53 INR 1.0 07/08/17 08:53 APTT 66 SECONDS (21-34) H D 07/09/17 11:01 - Constitutional Appears: Non-toxic, No Acute Distress - Head Exam Head Exam: ATRAUMATIC, NORMOCEPHALIC - Eye Exam Eye Exam: EOMI - ENT Exam ENT Exam: Mucous Membranes Moist - Respiratory Exam Respiratory Exam: Clear to Ausculation Bilateral, NORMAL BREATHING PATTERN. absent: Respiratory Distress - Cardiovascular Exam Cardiovascular Exam: REGULAR RHYTHM, +S1, +S2 - GI/Abdominal Exam GI & Abdominal Exam: Soft, Normal Bowel Sounds. absent: Tenderness - Extremities Exam Extremities Exam: Pedal Edema (mild b/l, non-pitting) - Neurological Exam Neurological Exam: Alert, Awake - Psychiatric Exam Psychiatric exam: Normal Affect - Skin Skin Exam: Dry, Warm Assessment and Plan - Assessment and Plan (Free Text) Assessment: NSTEMI (non-ST elevated myocardial infarction) 07/11: Patient to follow up with Dr. Montanez on discharge 07/10: cardiac cath performed by Dr. Montanez, Patent BENDER to LAD. Occluded SVGs ( previously stented). d/c Brilinta Cardiology consult, Dr. Montanez, f/u recs -patient has high risk features and elevated troponin. Patient is currently pain free and troponin decreasing. -d/c heparin. Aspirin (Ecotrin) 81 mg PO DAILY [facility] Carvedilol (Coreg) 12.5 mg PO BID [facility] Status: Acute CAD (coronary artery disease) of artery bypass graft Cardiology consult, Dr. Montanez, f/u recs Rosuvastatin Calcium (Crestor) 10 mg PO HS [facility] Diabetes 07/11: patient given one dose januvia today, will discharge patient on allogliptin 25mg daily. patient advised to follow up with new primary medical doctor for diabetes management as sugars have been consistently in 300s. Hgb a1c 12. 7. Patient denies history of insulin use. 07/10: glucose 200s-300s -> start Novolog ISS - high dose risk factor for graft occlusion Gabapentin (Neurontin) 400 mg PO TID [facility] Glimepiride (Amaryl) 4 mg PO DAILY [facility] Metformin HCl (Glucophage) 1,000 mg PO BID [facility] Hypertension blood pressure control Furosemide (Lasix) 40 mg PO DAILY [facility] Carvedilol (Coreg) 12.5 mg PO BID [facility] Prophylaxis Heparin D/C'd NS0.9% 75cc/hr Patient is stable for discharge home per Dr. Negrete. Patient is to follow up with Dr. Montanez upon discharge. Patient is to discontinue taking Brilinta. Patient is being prescribed new medication Nesina 25mg by mouth daily. Patient should resume all other home medications. Patient will need to establish care with new primary medical doctor upon discharge of his choosing. If patient would like to establish care with Dr. Negrete- his contact information will be left for patient. Patient should return to the ED if his symptoms worsen or reoccur.
[2017-07-11 16:09] VITALS: PULSE 80; O2SAT 96
[2017-07-11 17:22] VITALS: BP 145/88
--- NOTE | 2017-07-12 00:39 | CARD ---
APPROVED REPORT EKG Measurement Heart [id number] <Conclusion> Sinus rhythm with frequent premature ventricular complexes in a pattern of bigeminy Nonspecific intraventricular block Abnormal ECG
--- NOTE | 2017-07-12 17:58 | CARD ---
APPROVED REPORT EKG Measurement Heart [id number] <Conclusion> Normal sinus rhythm Rightward axis Nonspecific intraventricular block Abnormal ECG
== END 2017-07-11 18:30 | disposition home or self-care (01) | DRG 281 ==
LOC: C.ER 07:30 → C.9E 11:05 → C.6T 11:43
PROVIDERS: ADMIT Internal Medicine Pulmonary Disease; ATTEND Internal Medicine Pulmonary Disease
PROC: 4A023N8 Measurement of Cardiac Sampling and Pressure, Bilateral, Percutaneous Approach (ICD-10-PCS; principal; 2017-07-10)
PROC: B201YZZ Plain Radiography of Multiple Coronary Arteries using Other Contrast (ICD-10-PCS; 2017-07-10)
PROC: B206YZZ Plain Radiography of Right and Left Heart using Other Contrast (ICD-10-PCS; 2017-07-10)
PROC: B203YZZ Plain Radiography of Multiple Coronary Artery Bypass Grafts using Other Contrast (ICD-10-PCS; 2017-07-10)
DX: I21.4 Non-ST elevation (NSTEMI) myocardial infarction (principal); I25.810 Atherosclerosis of coronary artery bypass graft(s) without angina pectoris; I11.0 Hypertensive heart disease with heart failure; I50.9 Heart failure, unspecified; E11.9 Type 2 diabetes mellitus without complications; Z95.1 Presence of aortocoronary bypass graft; J45.909 Unspecified asthma, uncomplicated; I25.10 Atherosclerotic heart disease of native coronary artery without angina pectoris; F32.9 Major depressive disorder, single episode, unspecified; Z86.73 Personal history of transient ischemic attack (TIA), and cerebral infarction without residual deficits; Z95.0 Presence of cardiac pacemaker; Z87.891 Personal history of nicotine dependence; Z95.5 Presence of coronary angioplasty implant and graft

== ENCOUNTER 2017-08-24 07:12 | Inpatient (IN) | payer MEDICARE, MEDICAID ==
[2017-08-24] MEDS ORDERED: Albuterol-Ipratrop 3 mg / 0.5 (3 ml) UD ONE ×3 (07:23→08:41)
[2017-08-24] MEDS ORDERED: Albuterol-Ipratrop 3 mg / 0.5 (3 ml) UD INH STA ×3 (07:30→08:16)
[2017-08-24 07:35] VITALS: BMI 32.5
[2017-08-24 08:09] LABS: BASO # 0.1 K/uL (0.0-0.2); BASO % 0.7 % (0.0-2.0); EOS # 0.4 K/uL (0.0-0.7); EOS % 3.5 % (0.0-4.0); LYMPH # 1.3 K/uL (1.0-4.3); LYMPH % 10.8 % (20.0-40.0); MEAN CELL VOLUME 78.4 fL (80.0-94.0); MEAN CORPUSCULAR HEMOGLOBIN 24.2 pg (27.0-31.0); MEAN CORPUSCULAR HGB CONC 30.9 g/dL (33.0-37.0); MEAN PLATELET VOLUME 9.5 fL (7.2-11.7); MONO # 0.9 K/uL (0.0-0.8); MONO % 7.2 % (0.0-10.0); NRBC % 0.1 % (0.0-2.0); RED CELL DISTRIBUTION WIDTH 18.8 % (11.5-14.5); WHITE BLOOD COUNT 12.1 K/uL (4.8-10.8)
[2017-08-24 08:16] LABS: CHLORIDE 92 mmol/L (98-107); POTASSIUM 4.4 mmol/L (3.6-5.2); SODIUM 132 mmol/L (132-148)
[2017-08-24 08:18] LABS: ALB/GLOB RATIO 1.3 (1.0-2.1); ALKALINE PHOSPHATASE 59 U/L (38-126); AST/SGOT 49 U/L (17-59); CARBON DIOXIDE 26 mmol/L (22-30); GFR AFRICAN-AMERICAN > 60; TOTAL PROTEIN 8.1 g/dL (6.3-8.3)
[2017-08-24 08:19] LABS: ALT/SGPT 44 U/L (21-72); BLOOD UREA NITROGEN 22 mg/dL (9-20); CALCIUM 9.4 mg/dl (8.6-10.4); GLUCOSE,RANDOM 318 mg/dL (75-110)
--- NOTE | 2017-08-24 08:23 | RAD ---
PROCEDURE: CHEST RADIOGRAPH, 1 VIEW HISTORY: Shortness of breath COMPARISON: 07/08/2017 FINDINGS: LUNGS: Moderate venous congestion with confluent consolidative changes at both lung bases with moderate left pleural effusion. PLEURA: As above. CARDIOVASCULAR: Cardiomegaly. Left-sided pacemaker. OSSEOUS STRUCTURES: Degenerative changes in the spine and shoulders. VISUALIZED UPPER ABDOMEN: Normal. OTHER FINDINGS: None. IMPRESSION: Moderate venous congestion with confluent consolidative changes at both lung bases with moderate left pleural effusion.
[2017-08-24] MEDS ORDERED: cefTRIAXone IV 1 gm in Dextros 50 ML IVPB ONE (09:36)
[2017-08-24] MEDS ORDERED: Azithromycin 500mg/250ML NS 500 MG/250 ML BAG IVPB ONE (09:37)
--- NOTE | 2017-08-24 15:09 | C.PDOC ---
History Of Present Illness 67 year old male presents to the ED with complaints of productive cough with "white-fracisco" phlegm and shortness of breath for 2-3 days. Patient notes subjective fever and he was admitted last month for NSTEMI. 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 Patient denies chest pain, nausea, vomiting, or recent travel. Chief Complaint (Nursing): Chest Pain History Per: Patient History/Exam Limitations: no limitations Onset/Duration Of Symptoms: Days (2-3 days ) Current Symptoms Are (Timing): Still Present Associated Symptoms: Fever (subjective ), Productive Cough. denies: Chills Reports Recently: Seen In ED (admitted last month ) Recent travel outside of the [place]: No Additional History Per: Prior Records Past Medical History Reviewed: Historical Data, Nursing Documentation, Vital Signs Vital Signs: Last Vital Signs Temp 97.4 F L 08/24/17 15:01 Pulse 70 08/24/17 15:01 Resp 20 08/24/17 15:01 BP 154/80 H 08/24/17 18:20 Pulse Ox 94 L 08/24/17 16:40 - Medical History PMH: Asthma, CAD, Cardia Arrhythmia, CHF, CVA (affecting right side of body), Depression (denies), Diabetes, Gastritis, HTN, Hypercholesterolemia Surgical History: CABG (BENDER to LAD, SVG to OM1,OM2, SVG to Diag, SVG to PDA. AVR/MVR (bioprosth)), Coronary Stent, Pacemaker - [facility] Procedures CORONAR ARTERIOGR-2 CATH (07/19/14) DILATION OF CORONARY ARTERY, ONE SITE, PERCUTANEOUS APPROACH (05/20/16) INSERTION OF INFUSION DEV INTO SUP VENA CAVA, PERC APPROACH (01/19/17) INSPECTION OF LARYNX, ENDO (04/23/16) LEFT HEART CARDIAC CATH (07/19/14) LT HEART ANGIOCARDIOGRAM (07/19/14) MEASURE CARDIAC SAMPL & PRESSURE, BILATERAL, PERC (07/08/17) MEASURE OF CARDIAC SAMPL & PRESSURE, L HEART, PERC APPROACH (05/20/16) PLAIN RADIOGRAPHY OF L INT MAMM GRAFT USING OTH CONTRAST (05/20/16) PLAIN RADIOGRAPHY OF LEFT HEART USING OTHER CONTRAST (05/20/16) PLAIN RADIOGRAPHY OF MULT COR A GRAFT USING OTH CONTRAST (07/08/17) PLAIN RADIOGRAPHY OF MULT COR ART USING OTH CONTRAST (07/08/17) PLAIN RADIOGRAPHY OF RIGHT AND LEFT HEART USING OTH CONTRAST (07/08/17) ULTRASONOGRAPHY OF RIGHT AND LEFT HEART, TRANSESOPHAGEAL (01/19/17) Family History: States: Unknown Family Hx - Social History Hx Tobacco Use: No Hx Alcohol Use: Yes Hx Substance Use: Yes (40 years ago) - Immunization History Hx Tetanus Toxoid Vaccination: Yes Hx Influenza Vaccination: Yes Hx Pneumococcal Vaccination: Yes Review Of Systems Constitutional: Positive for: Fever Respiratory: Positive for: Cough (productive with white phlegm ), Shortness of Breath Gastrointestinal: Negative for: Nausea, Vomiting, Abdominal Pain, Diarrhea Physical Exam - Physical Exam Appears: Non-toxic, In Acute Distress (appears to be in mild distress ) Skin: Warm, Dry Head: Atraumatic, Normacephalic Eye(s): bilateral: Normal Inspection, PERRL, EOMI Oral Mucosa: Moist Neck: Supple Chest: Symmetrical, No Deformity, No Tenderness Cardiovascular: Rhythm Regular, No Murmur Respiratory: Rales (trace rales at the bases ), No Rhonchi, Other (coarse sounds bilaterally ) Gastrointestinal/Abdominal: Soft, No Tenderness, No Distention, No Guarding, No Rebound Extremity: Other (Extremities +1 ) Neurological/Psych: Oriented x3, Normal Speech, Normal Cognition, Normal Cranial Nerves, No Cerebellar Signs, Normal Motor, Normal Sensation ED Course And Treatment - Laboratory Results Result Diagrams: 08/24/17 07:58 08/24/17 07:58 ECG: Interpreted By Me, Viewed By Me ECG Rhythm: Sinus Rhythm Interpretation Of ECG: Normal axis and rhythm. Rate From EC O2 Sat by Pulse Oximetry: 94 (RA) Progress Note: EKG, CXR, and blood work was ordered. Patient was given albuterol , aspirin, zithromax, and coreg were given. Disposition - Disposition Disposition: HOSPITALIZED Disposition Time: 09:00 Condition: STABLE - Clinical Impression Clinical Impression: Pneumonia - Scribe Statement The provider has reviewed the documentation as recorded by the Scribe Miriam Atkinson All medical record entries made by the Scribe were at my direction and personally dictated by me. I have reviewed the chart and agree that the record accurately reflects my personal performance of the history, physical exam, medical decision making, and the department course for this patient. I have also personally directed, reviewed, and agree with the discharge instructions and disposition.
[2017-08-24] MEDS ORDERED: MethylPREDNISolone 40 mg Vial IVP SCH (15:30)
[2017-08-24] MEDS: (Novolog) Insulin Aspart, Recombinant 100 u/ml 10 ml vial SC SCH ×2 (18:22→22:19)
--- NOTE | 2017-08-24 18:48 | CP.PCM.CON ---
History of Present Illness - History of Present Illness History of Present Illness: I was asked to see patient by Dr Lux. Patient is a 67 year old male with PMH CAD s/p CABG AVR/MVR, HTN DM hypercholesterolemia who presents withproductive cough. The patient states symptoms began a few days ago, and was noted to have subjective fever. He presented to [facility] due to cough and dyspnea. He had a previous admission one month ago for NSTEMI. Cardiac cath revealed patent BENDER to LAD and occluded SVGs. Review of Systems - Constitutional Constitutional: absent: As Per HPI, Anorexia, Chills, Daytime Sleepiness, Excessive Sweating, Fatigue, Fever, Frequent Falls, Headache, Increased Appetite , Lethargy, Malaise, Night Sweats, Snoring, Sleep Apnea, Weight Gain, Weight Loss, Weakness, Other - EENT Eyes: absent: As Per HPI, Blind Spots, Blurred Vision, Change in Vision, Decreased Night Vision, Diplopia, Discharge, Dry Eye, Exophthalmos, Floaters, Irritation, Itchy Eyes, Loss of Peripheral Vision, Pain, Photophobia, Requires Corrective Lenses, Sees Flashes, Spots in Vision, Tunnel Vision, Other Visual Disturbances, Loss of Vision, Other Ears: absent: As Per HPI, Decreased Hearing, Ear Discharge, Ear Pain, Tinnitus, Abnormal Hearing, Disequilibrium, Dizziness, Other Nose/Mouth/Throat: absent: As Per HPI, Epistaxis, Nasal Congestion, Nasal Discharge, Nasal Obstruction, Nasal Trauma, Nose Pain, Post Nasal Drip, Sinus Pain, Sinus Pressure, Bleeding Gums, Change in Voice, Dental Pain, Dry Mouth, Dysphagia, Halitosis, Hoarsness, Lip Swelling, Mouth Lesions, Mouth Pain, Odynophagia, Sore Throat, Throat Swelling, Tongue Swelling, Facial Pain, Neck Pain, Neck Mass, Other - Cardiovascular Cardiovascular: Leg Edema - Respiratory Respiratory: Cough, Chest Congestion, Excessive Mucous Production - Gastrointestinal Gastrointestinal: absent: As Per HPI, Abdominal Pain, Belching, Bloating, Change in Bowel Habits, Change in Stool Character, Coffee Ground Emesis, Constipation, Cramping, Diarrhea, Dyspepsia, Dysphagia, Early Satiety, Excessive Flatus, Fecal Incontinence, Heartburn, Hematemesis, Hematochezia, Loose Stools, Melena, Nausea, Odynophagia, Temesmus, Vomiting, Other - Genitourinary Genitourinary: absent: As Per HPI, Change in Urinary Stream, Difficulty Urinating, Dysuria, Flank Pain, Hematuria, Pyuria, Nocturia, Urinary Incontinence, Urinary Frequency, Urinary Hesitance, Urinary Urgency, Voiding Freq/Small Amts, Freq UTI, Hx Renal/Bladder Calculi, Hx /Renal Surgery, Bladder Distension, Other - Musculoskeletal Musculoskeletal: absent: As Per HPI, Abnormal Gait, Arthralgias, Atrophy, Back Pain, Deformity, Joint Swelling, Limited Range of Motion, Loss of Height, Muscle Cramps, Muscle Weakness, Myalgias, Neck Pain, Numbness, Radiating Pain into Limb, Stiffness, Tingling, Other - Integumentary Integumentary: absent: As Per HPI, Acne, Alopecia, Bleeding Lesions, Change in Hair, Change in Nails, Change in Pigmentation, Changing Lesions, Dry Skin, Erythema, Furuncle, Hirsutism, Lesions, New Lesions, Non-Healing Lesions, Photosensitivity, Pruritus, Rash, Skin Pain, Skin Ulcer, Sores, Striae, Swelling , Unusual Bruising, Wounds, Jaundice, Other - Neurological Neurological: absent: As Per HPI, Abnormal Gait, Abnormal Hearing, Abnormal Movements, Abnormal Speech, Behavioral Changes, Burning Sensations, Confusion, Convulsions, Disequilibrium, Dizziness, Numbness, Focal Weakness, Frequent Falls , Headaches, Lack of Coordination, Loss of Vision, Memory Loss, Paresthesias, Radicular Pain, Restless Legs, Sensory Deficit, Syncope, Tingling, Tremor, Vertigo, Weakness, Other Visual Disturbances, Other - Psychiatric Psychiatric: absent: As Per HPI, Abnormal Sleep Pattern, Anhedonia, Anxiety, Auditory Hallucinations, Behavioral Changes, Change in Appetite, Change in Libido, Confusion, Depression, Difficulty Concentrating, Hallucinations, Homicidal Ideation, Hopelessness, Irritability, Memory Loss, Mood Swings, Panic Attacks, Paranoia, Suicidal Ideation, Visual Hallucinations, Tactile Hallucinations, Other - Endocrine Endocrine: absent: As Per HPI, Change in Body Appearance, Change in Libido, Cold Intolorance, Deepening of Voice, Excessive Sweating, Fatigue, Flushing, Heat Intolorance, Increase in Ring/Shoe/Hat Size, Palpitations, Polydipsia, Polyphagia, Polyuria, Other - Hematologic/Lymphatic Hematologic: absent: As Per HPI, Easy Bleeding, Easy Bruising, Lymphadenopathy, Other Past Patient History - Infectious Disease Hx of Infectious Diseases: None - Past Medical History & Family History Past Medical History?: Yes - Past Social History Smoking Status: Former Smoker - CARDIAC Hx Cardia Arrhythmia: Yes Hx Congestive Heart Failure: Yes Hx Hypercholesterolemia: Yes Hx Hypertension: Yes Hx Pacemaker: Yes - PULMONARY Hx Asthma: Yes - HEENT Hx HEENT Problems: No - RENAL Hx Chronic Kidney Disease: No - ENDOCRINE/METABOLIC Hx Endocrine Disorders: Yes Hx Diabetes Mellitus Type 2: Yes - INTEGUMENTARY Hx Dermatological Problems: No Other/Comment: abdominal area with surgical scars - MUSCULOSKELETAL/RHEUMATOLOGICAL Hx Musculoskeletal Disorders: No Hx Falls: No Hx Fractures: No - GASTROINTESTINAL Hx Gastritis: Yes - PSYCHIATRIC Hx Depression: Yes (denies) Hx Substance Use: Yes (40 years ago) - SURGICAL HISTORY Hx Coronary Artery Bypass Graft: Yes (BENDER to LAD, SVG to OM1,OM2, SVG to Diag, SVG to PDA. AVR/MVR (bioprosth)) Hx Coronary Stent: Yes - ANESTHESIA Hx Anesthesia: Yes Hx Anesthesia Reactions: No Hx Malignant Hyperthermia: No Meds Allergies/Adverse Reactions: Allergies Allergy/AdvReac Type Severity Reaction Status Date / Time iodine Allergy Intermediate SHORTNESS Verified 08/24/17 07:35 OF BREATH shellfish derived Allergy Intermediate ANGIOEDEMA Verified 08/24/17 07:35 milk Allergy Mild SHORTNESS Verified 08/24/17 07:35 OF BREATH - Medications Medications: Current Medications Albuterol/Ipratropium (Duoneb 3 Mg/0.5 Mg (3 Ml) Ud) 3 ml INH RQ6 COUNTS INCLUDE 234 BEDS AT THE [facility] Aspirin (Ecotrin) 81 mg PO DAILY COUNTS INCLUDE 234 BEDS AT THE [facility] Carvedilol (Coreg) 12.5 mg PO BID COUNTS INCLUDE 234 BEDS AT THE [facility] Last Admin: 08/24/17 18:20 Dose: 12.5 mg Furosemide (Lasix) 40 mg IVP DAILY COUNTS INCLUDE 234 BEDS AT THE [facility] Gabapentin (Neurontin) 400 mg PO TID COUNTS INCLUDE 234 BEDS AT THE [facility] Glimepiride (Amaryl) 4 mg PO DAILY COUNTS INCLUDE 234 BEDS AT THE [facility] Last Admin: 08/24/17 18:21 Dose: 4 mg Ceftriaxone Sodium (Rocephin Iv 1 Gm Duplex) 50 mls @ 100 mls/hr IVPB DAILY COUNTS INCLUDE 234 BEDS AT THE [facility] Azithromycin 500 mg/ Sodium (Chloride) 250 mls @ 250 mls/hr IVPB DAILY COUNTS INCLUDE 234 BEDS AT THE [facility] Insulin Aspart (Novolog) 0 unit SC ACHS COUNTS INCLUDE 234 BEDS AT THE [facility] PRN Reason: Protocol Last Admin: 08/24/17 18:22 Dose: 4 unit Metformin HCl (Glucophage) 1,000 mg PO BID COUNTS INCLUDE 234 BEDS AT [facility] Last Admin: 08/24/17 18:21 Dose: 1,000 mg Methylprednisolone (Solu-Medrol) 40 mg IVP Q8 COUNTS INCLUDE 234 BEDS AT THE [facility] Last Admin: 08/24/17 18:21 Dose: 40 mg Pneumococcal Polyvalent Vaccine (Pneumovax 23 Vaccine) 0.5 ml IM .ONCE ONE Stop: 08/27/17 10:01 Rosuvastatin Calcium (Crestor) 10 mg PO [facility] Ticagrelor (Brilinta) 90 mg PO BID COUNTS INCLUDE 234 BEDS AT [facility] Last Admin: 08/24/17 18:21 Dose: 90 mg Physical Exam - Constitutional Appears: Non-toxic - Head Exam Head Exam: NORMAL INSPECTION - Eye Exam Eye Exam: Normal appearance - ENT Exam ENT Exam: Mucous Membranes Moist - Neck Exam Neck exam: Positive for: Full Rom - Respiratory Exam Respiratory Exam: Decreased Breath Sounds - Cardiovascular Exam Cardiovascular Exam: REGULAR RHYTHM - GI/Abdominal Exam GI & Abdominal Exam: Normal Bowel Sounds - Extremities Exam Extremities exam: Positive for: pedal edema - Back Exam Back exam: NORMAL INSPECTION - Neurological Exam Neurological exam: Alert, Oriented x3 - Psychiatric Exam Psychiatric exam: Normal Affect - Skin Skin Exam: Normal Color Results - Vital Signs Recent Vital Signs: Last Vital Signs Temp 97.4 F L 08/24/17 15:01 Pulse 70 08/24/17 15:01 Resp 20 08/24/17 15:01 BP 154/80 H 08/24/17 18:20 Pulse Ox 94 L 08/24/17 18:31 - Labs Result Diagrams: 08/24/17 07:58 08/24/17 07:58 Labs: Laboratory Results - last 24 hr 08/24/17 08/24/17 08/24/17 07:58 07:58 11:08 WBC 12.1 H RBC 5.10 Hgb 12.4 Hct 40.0 MCV 78.4 L MCH 24.2 L MCHC 30.9 L RDW 18.8 H Plt Count 229 MPV 9.5 Neut % (Auto) 77.8 H Lymph % (Auto) 10.8 L [place] % (Auto) 7.2 Eos % (Auto) 3.5 Baso % (Auto) 0.7 Neut # 9.4 H Lymph # 1.3 [place] # 0.9 H Eos # 0.4 Baso # 0.1 Sodium 132 Potassium 4.4 Chloride 92 L Carbon Dioxide 26 Anion Gap 18 BUN 22 H Creatinine 1.1 Est GFR ( Amer) > 60 Est GFR (Non-Af Amer) > 60 POC Glucose (mg/dL) 274 H Random Glucose 318 H Calcium 9.4 Total Bilirubin 1.0 AST 49 ALT 44 Alkaline Phosphatase 59 Troponin I 0.0260 NT-Pro-B Natriuret Pep 2210 H Total Protein 8.1 Albumin 4.6 Globulin 3.5 Albumin/Globulin Ratio 1.3 Influenza Typ A,B (EIA) 08/24/17 08/24/17 16:52 Unknown WBC RBC Hgb Hct MCV MCH MCHC RDW Plt Count MPV Neut % (Auto) Lymph % (Auto) [place] % (Auto) Eos % (Auto) Baso % (Auto) Neut # Lymph # [place] # Eos # Baso # Sodium Potassium Chloride Carbon Dioxide Anion Gap BUN Creatinine Est GFR ( Amer) Est GFR (Non-Af Amer) POC Glucose (mg/dL) 344 H Random Glucose Calcium Total Bilirubin AST ALT Alkaline Phosphatase Troponin I NT-Pro-B Natriuret Pep Total Protein Albumin Globulin Albumin/Globulin Ratio Influenza Typ A,B (EIA) Negative for flu a/b - EKG Data EKG Interpreted by: Myself Assessment & Plan (1) CAD (coronary artery disease) of artery bypass graft Assessment and Plan: patient has occluded bypass grafts. recommend d/c Brilinta Status: Acute (2) Diabetes Assessment and Plan: blood sugar control Status: Acute (3) Dyspnea Assessment and Plan: likely needs antibiotic therapy Status: Acute (4) Hypertension Assessment and Plan: blood pressure control Status: Acute
[2017-08-24] MEDS: Albuterol-Ipratrop 3 mg / 0.5 (3 ml) UD INH SCH (19:54)
--- NOTE | 2017-08-24 23:44 | CP.PCM.HP ---
Past Patient History - Infectious Disease Hx of Infectious Diseases: None - Past Medical History & Family History Past Medical History?: Yes - Past Social History Smoking Status: Former Smoker - CARDIAC Hx Cardia Arrhythmia: Yes Hx Congestive Heart Failure: Yes Hx Hypercholesterolemia: Yes Hx Hypertension: Yes Hx Pacemaker: Yes - PULMONARY Hx Asthma: Yes - HEENT Hx HEENT Problems: No - RENAL Hx Chronic Kidney Disease: No - ENDOCRINE/METABOLIC Hx Endocrine Disorders: Yes Hx Diabetes Mellitus Type 2: Yes - INTEGUMENTARY Hx Dermatological Problems: No Other/Comment: abdominal area with surgical scars - MUSCULOSKELETAL/RHEUMATOLOGICAL Hx Musculoskeletal Disorders: No Hx Falls: No Hx Fractures: No - GASTROINTESTINAL Hx Gastritis: Yes - PSYCHIATRIC Hx Depression: Yes (denies) Hx Substance Use: Yes (40 years ago) - SURGICAL HISTORY Hx Coronary Artery Bypass Graft: Yes (BENDER to LAD, SVG to OM1,OM2, SVG to Diag, SVG to PDA. AVR/MVR (bioprosth)) Hx Coronary Stent: Yes - ANESTHESIA Hx Anesthesia: Yes Hx Anesthesia Reactions: No Hx Malignant Hyperthermia: No Meds Allergies/Adverse Reactions: Allergies Allergy/AdvReac Type Severity Reaction Status Date / Time iodine Allergy Intermediate SHORTNESS Verified 08/24/17 07:35 OF BREATH shellfish derived Allergy Intermediate ANGIOEDEMA Verified 08/24/17 07:35 milk Allergy Mild SHORTNESS Verified 08/24/17 07:35 OF BREATH Results - Vital Signs Recent Vital Signs: Last Vital Signs Temp 97.4 F L 08/24/17 15:01 Pulse 76 08/24/17 19:57 Resp 20 08/24/17 15:01 BP 154/80 H 08/24/17 18:20 Pulse Ox 94 L 08/24/17 18:31 - Labs Result Diagrams: 08/24/17 07:58 08/24/17 07:58 Labs: Laboratory Results - last 24 hr 08/24/17 08/24/17 08/24/17 07:58 07:58 11:08 WBC 12.1 H RBC 5.10 Hgb 12.4 Hct 40.0 MCV 78.4 L MCH 24.2 L MCHC 30.9 L RDW 18.8 H Plt Count 229 MPV 9.5 Neut % (Auto) 77.8 H Lymph % (Auto) 10.8 L [place] % (Auto) 7.2 Eos % (Auto) 3.5 Baso % (Auto) 0.7 Neut # 9.4 H Lymph # 1.3 [place] # 0.9 H Eos # 0.4 Baso # 0.1 Sodium 132 Potassium 4.4 Chloride 92 L Carbon Dioxide 26 Anion Gap 18 BUN 22 H Creatinine 1.1 Est GFR ( Amer) > 60 Est GFR (Non-Af Amer) > 60 POC Glucose (mg/dL) 274 H Random Glucose 318 H Calcium 9.4 Total Bilirubin 1.0 AST 49 ALT 44 Alkaline Phosphatase 59 Troponin I 0.0260 NT-Pro-B Natriuret Pep 2210 H Total Protein 8.1 Albumin 4.6 Globulin 3.5 Albumin/Globulin Ratio 1.3 Influenza Typ A,B (EIA) 08/24/17 08/24/17 08/24/17 16:52 21:39 Unknown WBC RBC Hgb Hct MCV MCH MCHC RDW Plt Count MPV Neut % (Auto) Lymph % (Auto) [place] % (Auto) Eos % (Auto) Baso % (Auto) Neut # Lymph # [place] # Eos # Baso # Sodium Potassium Chloride Carbon Dioxide Anion Gap BUN Creatinine Est GFR ( Amer) Est GFR (Non-Af Amer) POC Glucose (mg/dL) 344 H 343 H Random Glucose Calcium Total Bilirubin AST ALT Alkaline Phosphatase Troponin I NT-Pro-B Natriuret Pep Total Protein Albumin Globulin Albumin/Globulin Ratio Influenza Typ A,B (EIA) Negative for flu a/b
[2017-08-25] MEDS: Albuterol-Ipratrop 3 mg / 0.5 (3 ml) UD INH SCH ×3 (01:52→19:29)
[2017-08-25] MEDS: MethylPREDNISolone 40 mg Vial IVP SCH ×3 (02:00→21:15)
[2017-08-25] MEDS: (Novolog) Insulin Aspart, Recombinant 100 u/ml 10 ml vial SC SCH ×4 (07:54→22:06)
[2017-08-25] MEDS: Azithromycin 500 MG in Sodium Chloride 0.9% 250 ML IVPB SCH (09:22)
[2017-08-25] MEDS: cefTRIAXone IV 1 gm in Dextros 50 ML IVPB SCH (09:23)
--- NOTE | 2017-08-25 14:10 | CARD ---
APPROVED REPORT EKG Measurement Heart [id number] <Conclusion> Normal sinus rhythm Nonspecific intraventricular block T wave abnormality, consider inferior ischemia Abnormal ECG
--- NOTE | 2017-08-25 15:02 | CP.PCM.PN ---
Subjective - Date & Time of Evaluation Date of Evaluation: 08/25/17 Time of Evaluation: 10:20 - Subjective Subjective: clinically same Objective - Vital Signs/Intake and Output Vital Signs (last 24 hours): Temp Pulse Resp BP Pulse Ox 97.7 F 68 20 130/80 95 08/25/17 07:25 08/25/17 07:25 08/25/17 07:25 08/25/17 10:00 08/25/17 07:25 Intake and Output: 08/25/17 08/25/17 06:59 18:59 Intake Total 700 Balance 700 - Medications Medications: Current Medications Albuterol/Ipratropium (Duoneb 3 Mg/0.5 Mg (3 Ml) Ud) 3 ml INH RQ6 [facility] Last Admin: 08/25/17 07:14 Dose: 3 ml Aspirin (Ecotrin) 81 mg PO DAILY [facility] Last Admin: 08/25/17 09:26 Dose: 81 mg Carvedilol (Coreg) 12.5 mg PO BID [facility] Last Admin: 08/25/17 09:21 Dose: 12.5 mg Furosemide (Lasix) 40 mg IVP DAILY [facility] Last Admin: 08/25/17 10:00 Dose: 40 mg Gabapentin (Neurontin) 400 mg PO TID [facility] Last Admin: 08/25/17 13:50 Dose: 400 mg Glimepiride (Amaryl) 4 mg PO DAILY [facility] Last Admin: 08/25/17 09:21 Dose: 4 mg Heparin Sodium (Porcine) (Heparin) 5,000 units SC Q12 [facility] Last Admin: 08/25/17 09:27 Dose: 5,000 units Ceftriaxone Sodium (Rocephin Iv 1 Gm Duplex) 50 mls @ 100 mls/hr IVPB DAILY [facility] Last Admin: 08/25/17 09:23 Dose: 100 mls/hr Azithromycin 500 mg/ Sodium (Chloride) 250 mls @ 250 mls/hr IVPB DAILY [facility] Last Admin: 08/25/17 09:22 Dose: 250 mls/hr Insulin Aspart (Novolog) 0 unit SC ACHS [facility] PRN Reason: Protocol Last Admin: 08/25/17 12:06 Dose: 6 unit Metformin HCl (Glucophage) 1,000 mg PO BID [facility] Last Admin: 08/25/17 09:21 Dose: 1,000 mg Methylprednisolone (Solu-Medrol) 40 mg IVP Q8 [facility] Last Admin: 08/25/17 05:49 Dose: 40 mg Pneumococcal Polyvalent Vaccine (Pneumovax 23 Vaccine) 0.5 ml IM .ONCE ONE Stop: 08/27/17 10:01 Rosuvastatin Calcium (Crestor) 10 mg PO HS [facility] Last Admin: 08/24/17 21:50 Dose: 10 mg - Labs Labs: 08/24/17 07:58 08/24/17 07:58 Assessment and Plan - Assessment and Plan (Free Text) Plan: Patient seen and discussed with the staff Continue DuoNeb Continue IV antibiotic IV Lasix Pulmonary consult Coronary consult The patient feels better Patient advised to lose weight Continue same
--- NOTE | 2017-08-25 17:22 | CP.PCM.CON ---
History of Present Illness - History of Present Illness History of Present Illness: reason for consultation: cough and shortness of breath 67-year-old male with coronary artery disease status post CABG, hypertension and diabetes presented to emergency room with worsening shortness of breath and productive cough for the past 2 weeks. Patient was recently admitted with non- ST elevation OR and had cardiac catheter done with patent BENDER and LAD. Review of Systems - Review of Systems All systems: reviewed and no additional remarkable complaints except (shortness of breath and cough) Past Patient History - Infectious Disease Hx of Infectious Diseases: None - Past Medical History & Family History Past Medical History?: Yes - Past Social History Smoking Status: Former Smoker - CARDIAC Hx Cardia Arrhythmia: Yes Hx Congestive Heart Failure: Yes Hx Hypercholesterolemia: Yes Hx Hypertension: Yes Hx Pacemaker: Yes - PULMONARY Hx Asthma: Yes - HEENT Hx HEENT Problems: No - RENAL Hx Chronic Kidney Disease: No - ENDOCRINE/METABOLIC Hx Endocrine Disorders: Yes Hx Diabetes Mellitus Type 2: Yes - INTEGUMENTARY Hx Dermatological Problems: No Other/Comment: abdominal area with surgical scars - MUSCULOSKELETAL/RHEUMATOLOGICAL Hx Musculoskeletal Disorders: No Hx Falls: No Hx Fractures: No - GASTROINTESTINAL Hx Gastritis: Yes - PSYCHIATRIC Hx Depression: Yes (denies) Hx Substance Use: Yes (40 years ago) - SURGICAL HISTORY Hx Coronary Artery Bypass Graft: Yes (BENDER to LAD, SVG to OM1,OM2, SVG to Diag, SVG to PDA. AVR/MVR (bioprosth)) Hx Coronary Stent: Yes - ANESTHESIA Hx Anesthesia: Yes Hx Anesthesia Reactions: No Hx Malignant Hyperthermia: No Meds Allergies/Adverse Reactions: Allergies Allergy/AdvReac Type Severity Reaction Status Date / Time iodine Allergy Intermediate SHORTNESS Verified 08/24/17 07:35 OF BREATH shellfish derived Allergy Intermediate ANGIOEDEMA Verified 08/24/17 07:35 milk Allergy Mild SHORTNESS Verified 08/24/17 07:35 OF BREATH - Medications Medications: Current Medications Albuterol/Ipratropium (Duoneb 3 Mg/0.5 Mg (3 Ml) Ud) 3 ml INH RQ6 [facility] Last Admin: 08/25/17 07:14 Dose: 3 ml Aspirin (Ecotrin) 81 mg PO DAILY [facility] Last Admin: 08/25/17 09:26 Dose: 81 mg Carvedilol (Coreg) 12.5 mg PO BID [facility] Last Admin: 08/25/17 09:21 Dose: 12.5 mg Furosemide (Lasix) 40 mg IVP DAILY [facility] Last Admin: 08/25/17 10:00 Dose: 40 mg Gabapentin (Neurontin) 400 mg PO TID [facility] Last Admin: 08/25/17 13:50 Dose: 400 mg Glimepiride (Amaryl) 4 mg PO DAILY [facility] Last Admin: 08/25/17 09:21 Dose: 4 mg Heparin Sodium (Porcine) (Heparin) 5,000 units SC Q12 [facility] Last Admin: 08/25/17 09:27 Dose: 5,000 units Ceftriaxone Sodium (Rocephin Iv 1 Gm Duplex) 50 mls @ 100 mls/hr IVPB DAILY [facility] Last Admin: 08/25/17 09:23 Dose: 100 mls/hr Azithromycin 500 mg/ Sodium (Chloride) 250 mls @ 250 mls/hr IVPB DAILY [facility] Last Admin: 08/25/17 09:22 Dose: 250 mls/hr Insulin Aspart (Novolog) 0 unit SC ACHS [facility] PRN Reason: Protocol Last Admin: 08/25/17 12:06 Dose: 6 unit Metformin HCl (Glucophage) 1,000 mg PO BID [facility] Last Admin: 08/25/17 09:21 Dose: 1,000 mg Methylprednisolone (Solu-Medrol) 40 mg IVP Q8 [facility] Last Admin: 08/25/17 05:49 Dose: 40 mg Pneumococcal Polyvalent Vaccine (Pneumovax 23 Vaccine) 0.5 ml IM .ONCE ONE Stop: 08/27/17 10:01 Rosuvastatin Calcium (Crestor) 10 mg PO HS [facility] Last Admin: 08/24/17 21:50 Dose: 10 mg Physical Exam - Constitutional Appears: No Acute Distress - Head Exam Head Exam: ATRAUMATIC, NORMOCEPHALIC - Eye Exam Eye Exam: Normal appearance - ENT Exam ENT Exam: Mucous Membranes Moist - Neck Exam Neck exam: Positive for: Normal Inspection - Respiratory Exam Respiratory Exam: Decreased Breath Sounds - Cardiovascular Exam Cardiovascular Exam: REGULAR RHYTHM - GI/Abdominal Exam GI & Abdominal Exam: Normal Bowel Sounds - Extremities Exam Extremities exam: Positive for: pedal edema - Neurological Exam Neurological exam: Alert, Oriented x3 Results - Vital Signs Recent Vital Signs: Last Vital Signs Temp 97.4 F L 08/25/17 15:08 Pulse 75 08/25/17 16:28 Resp 20 08/25/17 15:08 BP 105/65 08/25/17 15:08 Pulse Ox 95 08/25/17 15:08 - Labs Result Diagrams: 08/24/17 07:58 08/24/17 07:58 Labs: Laboratory Results - last 24 hr 08/24/17 08/25/17 08/25/17 21:39 06:37 11:50 POC Glucose (mg/dL) 343 H 356 H 423 H* 08/25/17 16:43 POC Glucose (mg/dL) 362 H Assessment & Plan (1) Pleural effusion Status: Acute Comment: chest x-ray consistent with by basilar infiltrate and pleural effusion. Continue antibiotics. CAT scan of the chest. Agree with steroids and nebulizer treat (2) Pneumonia Status: Acute
[2017-08-26] MEDS: Albuterol-Ipratrop 3 mg / 0.5 (3 ml) UD INH SCH ×3 (01:18→13:30)
[2017-08-26] MEDS: MethylPREDNISolone 40 mg Vial IVP SCH ×3 (05:06→21:57)
[2017-08-26] MEDS: (Novolog) Insulin Aspart, Recombinant 100 u/ml 10 ml vial SC SCH ×4 (07:55→21:58)
[2017-08-26] MEDS: cefTRIAXone IV 1 gm in Dextros 50 ML IVPB SCH (09:30)
[2017-08-26] MEDS: Azithromycin 500 MG in Sodium Chloride 0.9% 250 ML IVPB SCH (10:00)
--- NOTE | 2017-08-26 17:14 | CP.PCM.PN ---
Subjective - Date & Time of Evaluation Date of Evaluation: 08/26/17 Time of Evaluation: 10:00 - Subjective Subjective: clinically same Objective - Vital Signs/Intake and Output Vital Signs (last 24 hours): Temp Pulse Resp BP Pulse Ox 98.1 F 66 20 140/79 96 08/26/17 08:40 08/26/17 16:00 08/26/17 08:40 08/26/17 11:13 08/26/17 08:40 Intake and Output: 08/26/17 08/26/17 06:59 18:59 Intake Total 500 Balance 500 - Medications Medications: Current Medications Albuterol/Ipratropium (Duoneb 3 Mg/0.5 Mg (3 Ml) Ud) 3 ml INH RQ6 [facility] Last Admin: 08/26/17 13:30 Dose: 3 ml Aspirin (Ecotrin) 81 mg PO DAILY [facility] Last Admin: 08/26/17 11:13 Dose: 81 mg Carvedilol (Coreg) 12.5 mg PO BID [facility] Last Admin: 08/26/17 11:13 Dose: 12.5 mg Furosemide (Lasix) 40 mg IVP DAILY [facility] Last Admin: 08/26/17 11:13 Dose: 40 mg Gabapentin (Neurontin) 400 mg PO TID [facility] Last Admin: 08/26/17 13:05 Dose: 400 mg Glimepiride (Amaryl) 4 mg PO DAILY [facility] Last Admin: 08/26/17 10:00 Dose: 4 mg Heparin Sodium (Porcine) (Heparin) 5,000 units SC Q12 [facility] Last Admin: 08/26/17 11:00 Dose: 5,000 units Ceftriaxone Sodium (Rocephin Iv 1 Gm Duplex) 50 mls @ 100 mls/hr IVPB DAILY [facility] Last Admin: 08/26/17 09:30 Dose: 100 mls/hr Azithromycin 500 mg/ Sodium (Chloride) 250 mls @ 250 mls/hr IVPB DAILY [facility] Last Admin: 08/26/17 10:00 Dose: 250 mls/hr Insulin Aspart (Novolog) 0 unit SC ACHS [facility] PRN Reason: Protocol Last Admin: 08/26/17 12:30 Dose: 4 unit Metformin HCl (Glucophage) 1,000 mg PO BID [facility] Last Admin: 08/26/17 11:14 Dose: 1,000 mg Methylprednisolone (Solu-Medrol) 40 mg IVP Q8 [facility] Last Admin: 08/26/17 13:08 Dose: 40 mg Pneumococcal Polyvalent Vaccine (Pneumovax 23 Vaccine) 0.5 ml IM .ONCE ONE Stop: 08/27/17 10:01 Rosuvastatin Calcium (Crestor) 10 mg PO HS [facility] Last Admin: 08/25/17 22:16 Dose: 10 mg - Labs Labs: 08/24/17 07:58 08/24/17 07:58 - Constitutional Appears: Well - Head Exam Head Exam: ATRAUMATIC, NORMAL INSPECTION, NORMOCEPHALIC - Eye Exam Eye Exam: EOMI, Normal appearance, PERRL Pupil Exam: NORMAL ACCOMODATION, PERRL - ENT Exam ENT Exam: Mucous Membranes Moist, Normal Exam - Neck Exam Neck Exam: Full ROM, Normal Inspection. absent: Lymphadenopathy - Respiratory Exam Respiratory Exam: Decreased Breath Sounds - Cardiovascular Exam Cardiovascular Exam: REGULAR RHYTHM, +S1, +S2 - GI/Abdominal Exam GI & Abdominal Exam: Soft, Diminished Bowel Sounds - Rectal Exam Rectal Exam: Deferred
[2017-08-27] MEDS: Albuterol-Ipratrop 3 mg / 0.5 (3 ml) UD INH SCH ×4 (01:10→19:14)
[2017-08-27] MEDS ORDERED: (Novolin R) Insulin Human Regular 100 units/ml vial SC ONE (01:50)
[2017-08-27] MEDS: MethylPREDNISolone 40 mg Vial IVP SCH ×3 (05:16→22:09)
[2017-08-27] MEDS: (Novolog) Insulin Aspart, Recombinant 100 u/ml 10 ml vial SC SCH ×4 (08:18→22:09)
[2017-08-27] MEDS ORDERED: Influenza Vaccine 60 mcg/0.5 mL SYR (4YR UP) IM ONE (10:00)
[2017-08-27] MEDS ORDERED: Pneumococcal 23-Valent Vaccine IM ONE (10:00)
--- NOTE | 2017-08-27 10:17 | CP.PCM.PN ---
<Josselyn Valdivia - Last Filed: 08/27/17 11:43> Subjective - Date & Time of Evaluation Date of Evaluation: 08/27/17 Time of Evaluation: 08:00 - Subjective Subjective: Pulm progress note for Dr. Escobar: Patient seen and examined at bedside this AM. Patient reports he is breathing better. He was not on NC and was sitting up in bed. He stated that he does need the NC if he is walking around. He states he is having a nonproductive cough this morning but this has greatly improved since his admission. Denies fevers, chills. Objective - Vital Signs/Intake and Output Vital Signs (last 24 hours): Temp Pulse Resp BP Pulse Ox 97.3 F L 63 18 149/95 H 98 08/27/17 07:00 08/27/17 07:00 08/27/17 07:00 08/27/17 07:00 08/27/17 07:00 Intake and Output: 08/27/17 08/27/17 06:59 18:59 Intake Total 820 Balance 820 - Medications Medications: Current Medications Albuterol/Ipratropium (Duoneb 3 Mg/0.5 Mg (3 Ml) Ud) 3 ml INH RQ6 [facility] Last Admin: 08/27/17 07:25 Dose: 3 ml Aspirin (Ecotrin) 81 mg PO DAILY [facility] Last Admin: 08/26/17 11:13 Dose: 81 mg Carvedilol (Coreg) 12.5 mg PO BID [facility] Last Admin: 08/26/17 18:06 Dose: 12.5 mg Furosemide (Lasix) 40 mg IVP DAILY [facility] Last Admin: 08/26/17 11:13 Dose: 40 mg Gabapentin (Neurontin) 400 mg PO TID [facility] Last Admin: 08/26/17 18:06 Dose: 400 mg Glimepiride (Amaryl) 4 mg PO DAILY [facility] Last Admin: 08/26/17 10:00 Dose: 4 mg Heparin Sodium (Porcine) (Heparin) 5,000 units SC Q12 [facility] Last Admin: 08/26/17 21:57 Dose: 5,000 units Ceftriaxone Sodium (Rocephin Iv 1 Gm Duplex) 50 mls @ 100 mls/hr IVPB DAILY [facility] Last Admin: 08/26/17 09:30 Dose: 100 mls/hr Azithromycin 500 mg/ Sodium (Chloride) 250 mls @ 250 mls/hr IVPB DAILY [facility] Last Admin: 08/26/17 10:00 Dose: 250 mls/hr Insulin Aspart (Novolog) 0 unit SC ACHS [facility] PRN Reason: Protocol Last Admin: 08/27/17 08:18 Dose: 5 unit Metformin HCl (Glucophage) 1,000 mg PO BID [facility] Last Admin: 08/26/17 18:06 Dose: 1,000 mg Methylprednisolone (Solu-Medrol) 40 mg IVP Q8 [facility] Last Admin: 08/27/17 05:16 Dose: 40 mg Rosuvastatin Calcium (Crestor) 10 mg PO HS [facility] Last Admin: 08/26/17 21:57 Dose: 10 mg - Labs Labs: 08/24/17 07:58 08/24/17 07:58 - Constitutional Appears: Non-toxic, No Acute Distress - Head Exam Head Exam: ATRAUMATIC, NORMAL INSPECTION - Respiratory Exam Respiratory Exam: Decreased Breath Sounds, NORMAL BREATHING PATTERN. absent: Accessory Muscle Use, Clear to Ausculation Bilateral, Rales, Rhonchi, Wheezes, Respiratory Distress Additional comments: coarse breath sounds - Cardiovascular Exam Cardiovascular Exam: REGULAR RHYTHM, +S1, +S2 - GI/Abdominal Exam GI & Abdominal Exam: Soft, Normal Bowel Sounds. absent: Distended, Firm, Guarding, Tenderness - Extremities Exam Extremities Exam: Normal Inspection - Neurological Exam Neurological Exam: Alert, Awake, Oriented x3 - Psychiatric Exam Psychiatric exam: Normal Affect, Normal Mood - Skin Skin Exam: Dry, Intact, Normal Color, Warm Assessment and Plan (1) Pleural effusion Assessment & Plan: Chest X ray consistent with bibasilar infiltrate and pleural effusion f/u Chest CT Solu-Medrol 40mg IVP Q8 Duonebs Q6 [facility] Status: Acute (2) Pneumonia Assessment & Plan: Azithromycin 500mg IVPB daily Ceftriaxone 1 gram IVPB daily Negative for influenza Status: Acute <Fabian Escobar - Last Filed: 08/27/17 13:27> Objective - Vital Signs/Intake and Output Vital Signs (last 24 hours): Temp Pulse Resp BP Pulse Ox 97.3 F L 63 18 149/95 H 98 08/27/17 07:00 08/27/17 07:00 08/27/17 07:00 08/27/17 10:48 08/27/17 07:00 Intake and Output: 08/27/17 08/27/17 06:59 18:59 Intake Total 820 Balance 820 - Medications Medications: Current Medications Albuterol/Ipratropium (Duoneb 3 Mg/0.5 Mg (3 Ml) Ud) 3 ml INH RQ6 [facility] Last Admin: 08/27/17 13:16 Dose: 3 ml Aspirin (Ecotrin) 81 mg PO DAILY [facility] Last Admin: 08/27/17 10:48 Dose: 81 mg Carvedilol (Coreg) 12.5 mg PO BID [facility] Last Admin: 08/27/17 10:48 Dose: 12.5 mg Furosemide (Lasix) 40 mg IVP DAILY [facility] Last Admin: 08/27/17 10:47 Dose: 40 mg Gabapentin (Neurontin) 400 mg PO TID [facility] Last Admin: 08/27/17 10:54 Dose: 400 mg Glimepiride (Amaryl) 4 mg PO DAILY [facility] Last Admin: 08/27/17 10:48 Dose: 4 mg Heparin Sodium (Porcine) (Heparin) 5,000 units SC Q12 [facility] Last Admin: 08/27/17 10:48 Dose: 5,000 units Ceftriaxone Sodium (Rocephin Iv 1 Gm Duplex) 50 mls @ 100 mls/hr IVPB DAILY [facility] Last Admin: 08/27/17 11:08 Dose: 100 mls/hr Azithromycin 500 mg/ Sodium (Chloride) 250 mls @ 250 mls/hr IVPB DAILY [facility] Last Admin: 08/27/17 10:37 Dose: 250 mls/hr Insulin Aspart (Novolog) 0 unit SC ACHS [facility] PRN Reason: Protocol Last Admin: 08/27/17 12:41 Dose: 5 unit Metformin HCl (Glucophage) 1,000 mg PO BID [facility] Last Admin: 08/27/17 10:48 Dose: 1,000 mg Methylprednisolone (Solu-Medrol) 40 mg IVP Q8 [facility] Last Admin: 08/27/17 05:16 Dose: 40 mg Promethazine HCl (Phenergan Syrup) 6.25 mg PO Q6H PRN PRN Reason: Cough Last Admin: 08/27/17 12:27 Dose: 6.25 mg Rosuvastatin Calcium (Crestor) 10 mg PO HS [facility] Last Admin: 08/26/17 21:57 Dose: 10 mg - Labs Labs: 08/24/17 07:58 10/20/17 07:58 Assessment and Plan (1) Pleural effusion Status: Acute (2) Pneumonia Status: Acute Attending/Attestation - Attestation I have personally seen and examined this patient.: Yes I have fully participated in the care of the patient.: Yes I have reviewed all pertinent clinical information, including history, physical exam and plan: Yes Notes (Text): 08/27/17 13:27 breathing better Being treated for pneumonia For CAT scan of the chest Continue present treatment
[2017-08-27] MEDS: Azithromycin 500 MG in Sodium Chloride 0.9% 250 ML IVPB SCH (10:37)
[2017-08-27] MEDS: cefTRIAXone IV 1 gm in Dextros 50 ML IVPB SCH (11:08)
[2017-08-27] MEDS: Promethazine 6.25 MG/5 ML CUP PO PRN ×2 (12:27→18:18)
--- NOTE | 2017-08-27 15:31 | CT ---
PROCEDURE: CT Chest without contrast HISTORY: Pleural effusion, pneumonia. Relevant medical history:COPD and dyspnea COMPARISON: 08/24/2017 plain film radiographs of the thorax TECHNIQUE: Contiguous axial images were obtained through the chest without intravenous contrast enhancement. Sagittal and coronal reconstructions were performed. Radiation dose (DLP): 795.61 mGy-cm. This CT exam was performed using one or more of the following dose reduction techniques: Automated exposure control, adjustment of the mA and/or kV according to patient size, and/or use of iterative reconstruction technique. FINDINGS: LUNGS: Clear lungs. Visualized airway clear. MEDIASTINUM: Unremarkable thoracic aorta. No aneurysm. Cardiomegaly. No evidence of acute, significant cardiovascular disease. , postoperative changes related to valve repair. Position/ configuration of pacemaker device: Satisfactory. Incidental Finding(s): Postoperative changes related to sternotomy. Main pulmonary artery unremarkable. No vascular congestion. No lymphadenopathy. PLEURA: No pleural fluid. No pneumothorax. BONES: No fracture. No destructive lesion. UPPER ABDOMEN: Cholelithiasis without CT evidence of acute cholecystitis. Similar findings identified CT abdomen and pelvis 10/13/2014. OTHER FINDINGS: None. IMPRESSION: No active pulmonary disease. No evidence of pleural effusion or significant pleural abnormality. Additional benign and/or incidental findings described above. Upper
[2017-08-27] MEDS ORDERED: Albuterol Sulfate 2 mg/5 ml Cup PO SCH (18:00)
--- NOTE | 2017-08-27 19:01 | CP.PCM.PN ---
Subjective - Date & Time of Evaluation Date of Evaluation: 08/27/17 Time of Evaluation: 11:00 - Subjective Subjective: clinically same Objective - Vital Signs/Intake and Output Vital Signs (last 24 hours): Temp Pulse Resp BP Pulse Ox 98.6 F 63 18 154/94 H 98 08/27/17 15:18 08/27/17 16:00 08/27/17 15:18 08/27/17 17:31 08/27/17 15:18 Intake and Output: 08/27/17 08/28/17 18:59 06:59 Intake Total 500 Balance 500 - Medications Medications: Current Medications Albuterol/Ipratropium (Duoneb 3 Mg/0.5 Mg (3 Ml) Ud) 3 ml INH RQ6 [facility] Last Admin: 08/27/17 13:16 Dose: 3 ml Aspirin (Ecotrin) 81 mg PO DAILY [facility] Last Admin: 08/27/17 10:48 Dose: 81 mg Carvedilol (Coreg) 12.5 mg PO BID [facility] Last Admin: 08/27/17 17:31 Dose: 12.5 mg Furosemide (Lasix) 40 mg IVP DAILY [facility] Last Admin: 08/27/17 10:47 Dose: 40 mg Gabapentin (Neurontin) 400 mg PO TID [facility] Last Admin: 08/27/17 17:29 Dose: 400 mg Glimepiride (Amaryl) 4 mg PO DAILY [facility] Last Admin: 08/27/17 10:48 Dose: 4 mg Heparin Sodium (Porcine) (Heparin) 5,000 units SC Q12 [facility] Last Admin: 08/27/17 10:48 Dose: 5,000 units Ceftriaxone Sodium (Rocephin Iv 1 Gm Duplex) 50 mls @ 100 mls/hr IVPB DAILY [facility] Last Admin: 08/27/17 11:08 Dose: 100 mls/hr Azithromycin 500 mg/ Sodium (Chloride) 250 mls @ 250 mls/hr IVPB DAILY [facility] Last Admin: 08/27/17 10:37 Dose: 250 mls/hr Insulin Aspart (Novolog) 0 unit SC ACHS [facility] PRN Reason: Protocol Last Admin: 08/27/17 17:29 Dose: 2 unit Metformin HCl (Glucophage) 1,000 mg PO BID [facility] Last Admin: 08/27/17 17:29 Dose: 1,000 mg Methylprednisolone (Solu-Medrol) 40 mg IVP Q8 [facility] Last Admin: 08/27/17 14:35 Dose: 40 mg Promethazine HCl (Phenergan Syrup) 6.25 mg PO Q6H PRN PRN Reason: Cough Last Admin: 08/27/17 18:18 Dose: 6.25 mg Rosuvastatin Calcium (Crestor) 10 mg PO HS [facility] Last Admin: 08/26/17 21:57 Dose: 10 mg - Labs Labs: 08/24/17 07:58 08/24/17 07:58 - Constitutional Appears: Well - Head Exam Head Exam: ATRAUMATIC, NORMAL INSPECTION, NORMOCEPHALIC - Eye Exam Eye Exam: EOMI, Normal appearance, PERRL Pupil Exam: NORMAL ACCOMODATION, PERRL - ENT Exam ENT Exam: Mucous Membranes Moist, Normal Exam - Neck Exam Neck Exam: Full ROM, Normal Inspection. absent: Lymphadenopathy - Respiratory Exam Respiratory Exam: Decreased Breath Sounds - Cardiovascular Exam Cardiovascular Exam: REGULAR RHYTHM, +S1, +S2 - GI/Abdominal Exam GI & Abdominal Exam: Soft, Diminished Bowel Sounds - Rectal Exam Rectal Exam: Deferred
[2017-08-28] MEDS: Albuterol-Ipratrop 3 mg / 0.5 (3 ml) UD INH SCH ×4 (01:35→19:57)
[2017-08-28] MEDS: (Novolog) Insulin Aspart, Recombinant 100 u/ml 10 ml vial SC SCH ×4 (07:46→22:41)
[2017-08-28] MEDS: cefTRIAXone IV 1 gm in Dextros 50 ML IVPB SCH (09:57)
[2017-08-28] MEDS: Azithromycin 500 MG in Sodium Chloride 0.9% 250 ML IVPB SCH (10:54)
--- NOTE | 2017-08-28 14:42 | CP.PCM.PN ---
<Josselyn Valdivia - Last Filed: 08/28/17 14:39> Subjective - Date & Time of Evaluation Date of Evaluation: 08/28/17 Time of Evaluation: 08:00 - Subjective Subjective: Pulm progress note for Dr. Escobar: Patient seen and examined at bedside this AM. Denies fevers, chills, SOB, cough. He states his coughing has resolved. Objective - Vital Signs/Intake and Output Vital Signs (last 24 hours): Temp Pulse Resp BP Pulse Ox 97.3 F L 60 20 150/94 H 96 08/28/17 07:20 08/28/17 08:05 08/28/17 07:20 08/28/17 10:55 08/28/17 07:20 Intake and Output: 08/28/17 08/28/17 06:59 18:59 Intake Total 620 Balance 620 - Medications Medications: Current Medications Albuterol/Ipratropium (Duoneb 3 Mg/0.5 Mg (3 Ml) Ud) 3 ml INH RQ6 [facility] Last Admin: 08/28/17 14:07 Dose: Not Given Aspirin (Ecotrin) 81 mg PO DAILY [facility] Last Admin: 08/28/17 10:52 Dose: 81 mg Carvedilol (Coreg) 12.5 mg PO BID [facility] Last Admin: 08/28/17 10:52 Dose: 12.5 mg Furosemide (Lasix) 40 mg IVP DAILY [facility] Last Admin: 08/28/17 10:55 Dose: 40 mg Gabapentin (Neurontin) 400 mg PO TID [facility] Last Admin: 08/28/17 10:51 Dose: 400 mg Glimepiride (Amaryl) 4 mg PO DAILY [facility] Last Admin: 08/28/17 10:56 Dose: 4 mg Ceftriaxone Sodium (Rocephin Iv 1 Gm Duplex) 50 mls @ 100 mls/hr IVPB DAILY [facility] Last Admin: 08/28/17 09:57 Dose: 100 mls/hr Azithromycin 500 mg/ Sodium (Chloride) 250 mls @ 250 mls/hr IVPB DAILY [facility] Last Admin: 08/28/17 10:54 Dose: 250 mls/hr Insulin Aspart (Novolog) 0 unit SC ACHS [facility] PRN Reason: Protocol Last Admin: 08/28/17 12:25 Dose: 6 unit Metformin HCl (Glucophage) 1,000 mg PO BID [facility] Last Admin: 08/28/17 10:51 Dose: 1,000 mg Methylprednisolone (Solu-Medrol) 40 mg IVP Q8 [facility] Last Admin: 08/27/17 22:09 Dose: 40 mg Promethazine HCl (Phenergan Syrup) 6.25 mg PO Q6H PRN PRN Reason: Cough Last Admin: 08/27/17 18:18 Dose: 6.25 mg Rosuvastatin Calcium (Crestor) 10 mg PO HS [facility] Last Admin: 08/27/17 22:08 Dose: 10 mg - Labs Labs: 08/24/17 07:58 08/24/17 07:58 - Constitutional Appears: Non-toxic, No Acute Distress - Respiratory Exam Respiratory Exam: Decreased Breath Sounds, Clear to Ausculation Bilateral, NORMAL BREATHING PATTERN. absent: Accessory Muscle Use, Rales, Rhonchi, Wheezes , Respiratory Distress, Stridor - Cardiovascular Exam Cardiovascular Exam: REGULAR RHYTHM, +S1, +S2 - GI/Abdominal Exam GI & Abdominal Exam: Soft, Normal Bowel Sounds. absent: Distended, Firm, Guarding, Tenderness - Neurological Exam Neurological Exam: Alert, Awake, Oriented x3 - Psychiatric Exam Psychiatric exam: Normal Affect, Normal Mood - Skin Skin Exam: Dry, Intact, Normal Color, Warm Assessment and Plan (1) Pneumonia Assessment & Plan: Chest CT showed no sign of pneumonia Azithromycin 500mg IVPB daily Ceftriaxone 1 gram IVPB daily - will discontinue Negative for influenza Status: Acute (2) Pleural effusion Assessment & Plan: Resolved Chest CT 08/18 - no acute pulmonary disease Chest X ray consistent with bibasilar infiltrate and pleural effusion Solu-Medrol 40mg IVP Q8 - will decrease to IVP Q12 and taper Duonebs Q6 [facility] Status: Acute <Fabian Escobar S - Last Filed: 08/28/17 16:16> Objective - Vital Signs/Intake and Output Vital Signs (last 24 hours): Temp Pulse Resp BP Pulse Ox 97.3 F L 60 20 150/94 H 96 08/28/17 07:20 08/28/17 08:05 08/28/17 07:20 08/28/17 10:55 08/28/17 07:20 Intake and Output: 08/28/17 08/28/17 06:59 18:59 Intake Total 620 Balance 620 - Medications Medications: Current Medications Albuterol/Ipratropium (Duoneb 3 Mg/0.5 Mg (3 Ml) Ud) 3 ml INH RQ6 [facility] Last Admin: 08/28/17 14:07 Dose: Not Given Aspirin (Ecotrin) 81 mg PO DAILY [facility] Last Admin: 08/28/17 10:52 Dose: 81 mg Carvedilol (Coreg) 12.5 mg PO BID [facility] Last Admin: 08/28/17 10:52 Dose: 12.5 mg Furosemide (Lasix) 40 mg IVP DAILY [facility] Last Admin: 08/28/17 10:55 Dose: 40 mg Gabapentin (Neurontin) 400 mg PO TID [facility] Last Admin: 08/28/17 14:50 Dose: 400 mg Glimepiride (Amaryl) 4 mg PO DAILY [facility] Last Admin: 08/28/17 10:56 Dose: 4 mg Azithromycin 500 mg/ Sodium (Chloride) 250 mls @ 250 mls/hr IVPB DAILY [facility] Last Admin: 08/28/17 10:54 Dose: 250 mls/hr Insulin Aspart (Novolog) 0 unit SC ACHS [facility] PRN Reason: Protocol Last Admin: 08/28/17 12:25 Dose: 6 unit Metformin HCl (Glucophage) 1,000 mg PO BID [facility] Last Admin: 08/28/17 10:51 Dose: 1,000 mg Methylprednisolone (Solu-Medrol) 40 mg IVP Q12H [facility] Promethazine HCl (Phenergan Syrup) 6.25 mg PO Q6H PRN PRN Reason: Cough Last Admin: 08/27/17 18:18 Dose: 6.25 mg Rosuvastatin Calcium (Crestor) 10 mg PO HS [facility] Last Admin: 08/27/17 22:08 Dose: 10 mg - Labs Labs: 08/24/17 07:58 08/24/17 07:58 Assessment and Plan (1) Pleural effusion Status: Acute (2) Pneumonia Status: Acute Attending/Attestation - Attestation I have personally seen and examined this patient.: Yes I have fully participated in the care of the patient.: Yes I have reviewed all pertinent clinical information, including history, physical exam and plan: Yes Notes (Text): 08/28/17 16:15 Patient seen and examined. Breathing much improved Still complaining of congestion with improving cough CAT scan showed no infiltrate Continue nebulizer treatment and IV antibiotics for upper respiratory tract infection Taper steroids
[2017-08-28] MEDS ORDERED: MethylPREDNISolone 40 mg Vial IVP SCH (15:00)
[2017-08-28] MEDS: MethylPREDNISolone 40 mg Vial IVP SCH (17:52)
--- NOTE | 2017-08-28 18:42 | CP.PCM.PN ---
Subjective - Date & Time of Evaluation Date of Evaluation: 08/28/17 Time of Evaluation: 10:40 - Subjective Subjective: clinically same Objective - Vital Signs/Intake and Output Vital Signs (last 24 hours): Temp Pulse Resp BP Pulse Ox 97.9 F 73 20 154/95 H 92 L 08/28/17 15:14 08/28/17 16:25 08/28/17 15:14 08/28/17 18:01 08/28/17 16:25 Intake and Output: 08/28/17 08/28/17 06:59 18:59 Intake Total 620 780 Output Total 700 Balance 620 80 - Medications Medications: Current Medications Albuterol/Ipratropium (Duoneb 3 Mg/0.5 Mg (3 Ml) Ud) 3 ml INH RQ6 [facility] Last Admin: 08/28/17 14:07 Dose: Not Given Aspirin (Ecotrin) 81 mg PO DAILY [facility] Last Admin: 08/28/17 10:52 Dose: 81 mg Carvedilol (Coreg) 12.5 mg PO BID [facility] Last Admin: 08/28/17 18:01 Dose: 12.5 mg Furosemide (Lasix) 40 mg IVP DAILY [facility] Last Admin: 08/28/17 10:55 Dose: 40 mg Gabapentin (Neurontin) 400 mg PO TID [facility] Last Admin: 08/28/17 17:51 Dose: 400 mg Glimepiride (Amaryl) 4 mg PO DAILY [facility] Last Admin: 08/28/17 10:56 Dose: 4 mg Azithromycin 500 mg/ Sodium (Chloride) 250 mls @ 250 mls/hr IVPB DAILY [facility] Last Admin: 08/28/17 10:54 Dose: 250 mls/hr Insulin Aspart (Novolog) 0 unit SC ACHS [facility] PRN Reason: Protocol Last Admin: 08/28/17 17:53 Dose: 4 unit Metformin HCl (Glucophage) 1,000 mg PO BID [facility] Last Admin: 08/28/17 17:51 Dose: 1,000 mg Methylprednisolone (Solu-Medrol) 40 mg IVP Q12H [facility] Last Admin: 08/28/17 17:52 Dose: 40 mg Promethazine HCl (Phenergan Syrup) 6.25 mg PO Q6H PRN PRN Reason: Cough Last Admin: 08/27/17 18:18 Dose: 6.25 mg Rosuvastatin Calcium (Crestor) 10 mg PO HS [facility] Last Admin: 08/27/17 22:08 Dose: 10 mg - Labs Labs: 08/24/17 07:58 08/24/17 07:58 - Constitutional Appears: Well - Head Exam Head Exam: ATRAUMATIC, NORMAL INSPECTION, NORMOCEPHALIC - Eye Exam Eye Exam: EOMI, Normal appearance, PERRL Pupil Exam: NORMAL ACCOMODATION, PERRL - ENT Exam ENT Exam: Mucous Membranes Moist, Normal Exam - Neck Exam Neck Exam: Full ROM, Normal Inspection. absent: Lymphadenopathy - Respiratory Exam Respiratory Exam: Decreased Breath Sounds - Cardiovascular Exam Cardiovascular Exam: REGULAR RHYTHM, +S1, +S2 - GI/Abdominal Exam GI & Abdominal Exam: Soft, Diminished Bowel Sounds - Rectal Exam Rectal Exam: Deferred
[2017-08-28 19:57] LABS: POTASSIUM 5.3 mmol/L (3.6-5.2)
[2017-08-28 19:59] LABS: ALB/GLOB RATIO 1.7 (1.0-2.1); BILIRUBIN,TOTAL 0.5 mg/dL (0.2-1.3); TOTAL PROTEIN 6.9 g/dL (6.3-8.3)
[2017-08-28 20:00] LABS: CALCIUM 8.7 mg/dl (8.6-10.4)
[2017-08-28 20:06] LABS: BASO % 0.2 % (0.0-2.0); LYMPH # 0.8 K/uL (1.0-4.3); LYMPH % 5.2 % (20.0-40.0); MEAN CELL VOLUME 79.4 fL (80.0-94.0); MEAN CORPUSCULAR HEMOGLOBIN 24.1 pg (27.0-31.0); MEAN CORPUSCULAR HGB CONC 30.3 g/dL (33.0-37.0); MEAN PLATELET VOLUME 9.2 fL (7.2-11.7); MONO # 0.9 K/uL (0.0-0.8); MONO % 6.4 % (0.0-10.0); NRBC % 0.1 % (0.0-2.0); PLATELET COUNT 213 K/uL (130-400); RED CELL DISTRIBUTION WIDTH 19.1 % (11.5-14.5); WHITE BLOOD COUNT 14.7 K/uL (4.8-10.8)
[2017-08-28 22:16] LABS: TOTAL CELLS COUNTED 100
[2017-08-28 22:17] LABS: NEUTROPHIL 90 % (50-75)
[2017-08-28 22:18] LABS: LARGE PLATELETS PRESENT
[2017-08-29 00:54] VITALS: O2SAT 95
[2017-08-29] MEDS ORDERED: (Novolin R) Insulin Human Regular 100 units/ml vial SC ONE (02:13)
[2017-08-29] MEDS: Albuterol-Ipratrop 3 mg / 0.5 (3 ml) UD INH SCH ×4 (02:21→13:38)
[2017-08-29] MEDS: MethylPREDNISolone 40 mg Vial IVP SCH (05:25)
[2017-08-29 07:30] LABS: BASO % 0.3 % (0.0-2.0); HEMATOCRIT 40.3 % (35.0-51.0); LYMPH # 0.6 K/uL (1.0-4.3); LYMPH % 4.4 % (20.0-40.0); MEAN CELL VOLUME 78.6 fL (80.0-94.0); MEAN CORPUSCULAR HEMOGLOBIN 24.1 pg (27.0-31.0); MEAN CORPUSCULAR HGB CONC 30.7 g/dL (33.0-37.0); MEAN PLATELET VOLUME 9.2 fL (7.2-11.7); MONO # 0.7 K/uL (0.0-0.8); MONO % 5.3 % (0.0-10.0); PLATELET COUNT 234 K/uL (130-400); RED CELL DISTRIBUTION WIDTH 18.9 % (11.5-14.5)
[2017-08-29 08:08] VITALS: RESP 18
[2017-08-29 08:08] LABS: CHLORIDE 99 mmol/L (98-107); POTASSIUM 5.3 mmol/L (3.6-5.2); SODIUM 134 mmol/L (132-148)
[2017-08-29 08:10] LABS: BILIRUBIN,TOTAL 0.5 mg/dL (0.2-1.3); GFR AFRICAN-AMERICAN > 60
[2017-08-29 08:11] LABS: ALB/GLOB RATIO 1.2 (1.0-2.1); ALKALINE PHOSPHATASE 52 U/L (38-126); ALT/SGPT 66 U/L (21-72); AST/SGOT 54 U/L (17-59); BLOOD UREA NITROGEN 49 mg/dL (9-20); CARBON DIOXIDE 23 mmol/L (22-30); GLUCOSE,RANDOM 378 mg/dL (75-110); TOTAL PROTEIN 7.7 g/dL (6.3-8.3)
[2017-08-29] MEDS: (Novolog) Insulin Aspart, Recombinant 100 u/ml 10 ml vial SC SCH ×3 (08:30→17:42)
[2017-08-29] MEDS: Promethazine 6.25 MG/5 ML CUP PO PRN (08:33)
[2017-08-29 08:42] LABS: TOTAL CELLS COUNTED 100
[2017-08-29 08:43] LABS: LARGE PLATELETS PRESENT; NEUTROPHIL 90 % (50-75)
[2017-08-29] MEDS: Azithromycin 500 MG in Sodium Chloride 0.9% 250 ML IVPB SCH (10:15)
[2017-08-29] MEDS: guaiFENesin 600 mg ER Tab PO SCH ×2 (12:25→17:38)
--- NOTE | 2017-08-29 12:44 | CP.PCM.PN ---
<Josselyn Valdivia - Last Filed: 08/29/17 12:42> Subjective - Date & Time of Evaluation Date of Evaluation: 08/29/17 Time of Evaluation: 08:00 - Subjective Subjective: Pulm progress note for Dr. Escobar: Patient seen and examined at bedside this AM. Denies fevers, chills, SOB, cough. He states his coughing has resolved. Requesting home oxygen because "thinks I need it." Appeared to be comfortable on room and today and yesterday with good 02 saturation. Objective - Vital Signs/Intake and Output Vital Signs (last 24 hours): Temp Pulse Resp BP Pulse Ox 97.7 F 59 L 18 136/84 95 08/29/17 07:00 08/29/17 07:00 08/29/17 07:00 08/29/17 10:07 08/29/17 07:00 Intake and Output: 08/29/17 08/29/17 06:59 18:59 Intake Total 500 Output Total 400 Balance 100 - Medications Medications: Current Medications Albuterol/Ipratropium (Duoneb 3 Mg/0.5 Mg (3 Ml) Ud) 3 ml INH RQ6 [facility] Last Admin: 08/29/17 07:26 Dose: 3 ml Aspirin (Ecotrin) 81 mg PO DAILY [facility] Last Admin: 08/29/17 10:07 Dose: 81 mg Carvedilol (Coreg) 12.5 mg PO BID [facility] Last Admin: 08/29/17 10:07 Dose: 12.5 mg Furosemide (Lasix) 40 mg IVP DAILY [facility] Last Admin: 08/29/17 09:30 Dose: 40 mg Gabapentin (Neurontin) 400 mg PO TID [facility] Last Admin: 08/29/17 10:08 Dose: 400 mg Glimepiride (Amaryl) 4 mg PO DAILY [facility] Last Admin: 08/29/17 10:06 Dose: 4 mg Guaifenesin (Mucinex La) 600 mg PO BID [facility] Last Admin: 08/29/17 12:25 Dose: 600 mg Azithromycin 500 mg/ Sodium (Chloride) 250 mls @ 250 mls/hr IVPB DAILY [facility] Last Admin: 08/29/17 10:15 Dose: 250 mls/hr Insulin Aspart (Novolog) 0 unit SC ACHS [facility] PRN Reason: Protocol Last Admin: 08/29/17 12:25 Dose: 6 unit Metformin HCl (Glucophage) 1,000 mg PO BID [facility] Last Admin: 08/29/17 10:08 Dose: 1,000 mg Methylprednisolone (Solu-Medrol) 40 mg IVP Q12H [facility] Last Admin: 08/29/17 05:25 Dose: 40 mg Promethazine HCl (Phenergan Syrup) 6.25 mg PO Q6H PRN PRN Reason: Cough Last Admin: 08/29/17 08:33 Dose: 6.25 mg Rosuvastatin Calcium (Crestor) 10 mg PO HS [facility] Last Admin: 08/28/17 22:40 Dose: 10 mg - Labs Labs: 08/29/17 07:06 08/29/17 07:06 - Constitutional Appears: Non-toxic, No Acute Distress, Chronically Ill - Respiratory Exam Respiratory Exam: Clear to Ausculation Bilateral, NORMAL BREATHING PATTERN. absent: Accessory Muscle Use, Decreased Breath Sounds, Rales, Wheezes, Respiratory Distress - Cardiovascular Exam Cardiovascular Exam: REGULAR RHYTHM, +S1, +S2 - GI/Abdominal Exam GI & Abdominal Exam: Soft, Normal Bowel Sounds. absent: Distended, Firm, Guarding, Tenderness - Extremities Exam Extremities Exam: Normal Inspection - Neurological Exam Neurological Exam: Alert, Awake, Oriented x3 - Psychiatric Exam Psychiatric exam: Normal Affect, Normal Mood - Skin Skin Exam: Dry, Intact, Normal Color, Warm Assessment and Plan (1) Pneumonia Assessment & Plan: Chest CT showed no sign of pneumonia - likely more upper respiratory tract infection Azithromycin 500mg IVPB daily Ceftriaxone 1 gram IVPB daily - discontinued 08/28 Negative for influenza Status: Acute (2) Pleural effusion Assessment & Plan: Resolved Chest CT 08/18 - no acute pulmonary disease Chest X ray consistent with bibasilar infiltrate and pleural effusion Will switch to PO prednisone 40mg tomorrow. OK to discharge with taper (40mg x 3 days, 30mg x 3 days, 20 mg x 3 days, 10mg x 3 days) Duonebs Q6 [facility] Status: Acute <Fabian Escobar - Last Filed: 08/29/17 14:56> Objective - Vital Signs/Intake and Output Vital Signs (last 24 hours): Temp Pulse Resp BP Pulse Ox 97.7 F 59 L 18 136/84 95 08/29/17 07:00 08/29/17 07:00 08/29/17 07:00 08/29/17 10:07 08/29/17 07:00 Intake and Output: 08/29/17 08/29/17 06:59 18:59 Intake Total 500 Output Total 400 Balance 100 - Medications Medications: Current Medications Albuterol/Ipratropium (Duoneb 3 Mg/0.5 Mg (3 Ml) Ud) 3 ml INH RQ6 [facility] Last Admin: 08/29/17 13:38 Dose: Not Given Aspirin (Ecotrin) 81 mg PO DAILY [facility] Last Admin: 08/29/17 10:07 Dose: 81 mg Carvedilol (Coreg) 12.5 mg PO BID [facility] Last Admin: 08/29/17 10:07 Dose: 12.5 mg Furosemide (Lasix) 40 mg IVP DAILY [facility] Last Admin: 08/29/17 09:30 Dose: 40 mg Gabapentin (Neurontin) 400 mg PO TID [facility] Last Admin: 08/29/17 14:11 Dose: 400 mg Glimepiride (Amaryl) 4 mg PO DAILY [facility] Last Admin: 08/29/17 10:06 Dose: 4 mg Guaifenesin (Mucinex La) 600 mg PO BID [facility] Last Admin: 08/29/17 12:25 Dose: 600 mg Azithromycin 500 mg/ Sodium (Chloride) 250 mls @ 250 mls/hr IVPB DAILY [facility] Last Admin: 08/29/17 10:15 Dose: 250 mls/hr Insulin Aspart (Novolog) 0 unit SC ACHS [facility] PRN Reason: Protocol Last Admin: 08/29/17 12:25 Dose: 6 unit Metformin HCl (Glucophage) 1,000 mg PO BID [facility] Last Admin: 08/29/17 10:08 Dose: 1,000 mg Methylprednisolone (Solu-Medrol) 40 mg IVP Q12H [facility] Stop: 08/29/17 23:59 Last Admin: 08/29/17 05:25 Dose: 40 mg Prednisone (Prednisone Tab) 40 mg PO DAILY [facility] PRN Reason: Taper Stop: 09/11/17 09:59 Promethazine HCl (Phenergan Syrup) 6.25 mg PO Q6H PRN PRN Reason: Cough Last Admin: 08/29/17 08:33 Dose: 6.25 mg Rosuvastatin Calcium (Crestor) 10 mg PO HS [facility] Last Admin: 08/28/17 22:40 Dose: 10 mg - Labs Labs: 08/29/17 07:06 08/29/17 07:06 Assessment and Plan (1) Pleural effusion Status: Acute (2) Pneumonia Status: Acute Attending/Attestation - Attestation I have personally seen and examined this patient.: Yes I have fully participated in the care of the patient.: Yes I have reviewed all pertinent clinical information, including history, physical exam and plan: Yes Notes (Text): 08/29/17 14:56 Patient seen and examined. Breathing better Still complaining of slight cough DISCHARGE HOME Follow up in the office
--- NOTE | 2017-08-29 13:53 | CP.PCM.PN ---
Subjective - Date & Time of Evaluation Date of Evaluation: 08/29/17 Time of Evaluation: 13:53 Objective - Vital Signs/Intake and Output Vital Signs (last 24 hours): Temp Pulse Resp BP Pulse Ox 97.7 F 59 L 18 136/84 95 08/29/17 07:00 08/29/17 07:00 08/29/17 07:00 08/29/17 10:07 08/29/17 07:00 Intake and Output: 08/29/17 08/29/17 06:59 18:59 Intake Total 500 Output Total 400 Balance 100 - Medications Medications: Current Medications Albuterol/Ipratropium (Duoneb 3 Mg/0.5 Mg (3 Ml) Ud) 3 ml INH RQ6 [facility] Last Admin: 08/29/17 13:38 Dose: Not Given Aspirin (Ecotrin) 81 mg PO DAILY [facility] Last Admin: 08/29/17 10:07 Dose: 81 mg Carvedilol (Coreg) 12.5 mg PO BID [facility] Last Admin: 08/29/17 10:07 Dose: 12.5 mg Furosemide (Lasix) 40 mg IVP DAILY [facility] Last Admin: 08/29/17 09:30 Dose: 40 mg Gabapentin (Neurontin) 400 mg PO TID [facility] Last Admin: 08/29/17 10:08 Dose: 400 mg Glimepiride (Amaryl) 4 mg PO DAILY [facility] Last Admin: 08/29/17 10:06 Dose: 4 mg Guaifenesin (Mucinex La) 600 mg PO BID [facility] Last Admin: 08/29/17 12:25 Dose: 600 mg Azithromycin 500 mg/ Sodium (Chloride) 250 mls @ 250 mls/hr IVPB DAILY [facility] Last Admin: 08/29/17 10:15 Dose: 250 mls/hr Insulin Aspart (Novolog) 0 unit SC ACHS [facility] PRN Reason: Protocol Last Admin: 08/29/17 12:25 Dose: 6 unit Metformin HCl (Glucophage) 1,000 mg PO BID [facility] Last Admin: 08/29/17 10:08 Dose: 1,000 mg Methylprednisolone (Solu-Medrol) 40 mg IVP Q12H [facility] Stop: 08/29/17 23:59 Last Admin: 08/29/17 05:25 Dose: 40 mg Prednisone (Prednisone Tab) 40 mg PO DAILY [facility] PRN Reason: Taper Stop: 09/11/17 09:59 Promethazine HCl (Phenergan Syrup) 6.25 mg PO Q6H PRN PRN Reason: Cough Last Admin: 08/29/17 08:33 Dose: 6.25 mg Rosuvastatin Calcium (Crestor) 10 mg PO HS [facility] Last Admin: 08/28/17 22:40 Dose: 10 mg - Labs Labs: 08/29/17 07:06 08/29/17 07:06
[2017-08-29 16:46] VITALS: BP 143/93; PULSE 66; TEMP 98
--- NOTE | 2017-08-29 20:19 | CP.PCM.PN ---
Subjective - Date & Time of Evaluation Date of Evaluation: 08/29/17 Time of Evaluation: 14:40 - Subjective Subjective: clinically same Objective - Vital Signs/Intake and Output Vital Signs (last 24 hours): Temp Pulse Resp BP Pulse Ox 98 F 66 18 143/93 H 95 08/29/17 16:43 08/29/17 16:43 08/29/17 16:43 08/29/17 17:38 08/29/17 16:43 Intake and Output: 08/29/17 08/30/17 18:59 06:59 Intake Total 490 Balance 490 - Labs Labs: 08/29/17 07:06 08/29/17 07:06
== END 2017-08-29 18:25 | disposition home or self-care (01) | DRG 194 ==
LOC: C.ER 07:12 → C.9E 09:20 → OBSVTOIN 09:20 → C.6T 09:48
PROVIDERS: ADMIT Internal Medicine Nephrology; ATTEND Internal Medicine Nephrology
DX: J18.9 Pneumonia, unspecified organism (principal); I69.351 Hemiplegia and hemiparesis following cerebral infarction affecting right dominant side; I11.0 Hypertensive heart disease with heart failure; I50.9 Heart failure, unspecified; I25.810 Atherosclerosis of coronary artery bypass graft(s) without angina pectoris; E11.9 Type 2 diabetes mellitus without complications; E78.00 Pure hypercholesterolemia, unspecified; J45.909 Unspecified asthma, uncomplicated; Z87.891 Personal history of nicotine dependence; Z95.0 Presence of cardiac pacemaker; Z95.1 Presence of aortocoronary bypass graft; Z95.5 Presence of coronary angioplasty implant and graft; I25.2 Old myocardial infarction

== ENCOUNTER 2017-11-06 16:04 | Inpatient (IN) | payer MEDICARE, MEDICAID ==
[2017-11-06 16:05] VITALS: BMI 32.5
[2017-11-06 18:53] LABS: BASO # 0.1 K/uL (0.0-0.2); BASO % 1.1 % (0.0-2.0); EOS # 0.4 K/uL (0.0-0.7); HEMOGLOBIN 13.3 g/dL (12.0-18.0); LYMPH # 1.2 K/uL (1.0-4.3); LYMPH % 13.5 % (20.0-40.0); MEAN CELL VOLUME 79.7 fL (80.0-94.0); MEAN CORPUSCULAR HGB CONC 31.3 g/dL (33.0-37.0); MEAN PLATELET VOLUME 9.4 fL (7.2-11.7); MONO # 0.7 K/uL (0.0-0.8); MONO % 8.1 % (0.0-10.0); NEUT # 6.7 K/uL (1.8-7.0); NEUT % 73.3 % (50.0-75.0); NRBC % 0.1 % (0.0-2.0); RBC 5.33 Mil/uL (4.40-5.90); RED CELL DISTRIBUTION WIDTH 19.1 % (11.5-14.5); WHITE BLOOD COUNT 9.1 K/uL (4.8-10.8)
[2017-11-06 19:00] LABS: PROTHROMBIN TIME 11.4 SECONDS (9.7-12.2)
[2017-11-06 19:02] LABS: ALB/GLOB RATIO 1.2 (1.0-2.1); ALBUMIN 3.9 g/dL (3.5-5.0); ALT/SGPT 47 U/L (21-72); AST/SGOT 43 U/L (17-59); BLOOD UREA NITROGEN 15 mg/dL (9-20); CALCIUM 8.2 mg/dl (8.6-10.4); GFR AFRICAN-AMERICAN > 60; GFR NON-AFRICAN AMERICAN > 60
[2017-11-06 19:29] LABS: SQUAMOUS EPITHIAL < 1 /hpf (0-5); URINE BILIRUBIN NEGATIVE (NEGATIVE); URINE BLOOD NEGATIVE (NEGATIVE); URINE CLARITY Clear (Clear); URINE COLOR Yellow (YELLOW); URINE GLUCOSE (UA) 3+ mg/dL (Normal); URINE HYALINE CAST >20 /lpf (0-2); URINE LEUKOCYTE ESTERASE NEG Leu/uL (Negative); URINE NITRATE NEGATIVE (NEGATIVE); URINE PROTEIN 2+ mg/dL (NEGATIVE); URINE UROBILINOGEN NORMAL mg/dL (0.2-1.0)
[2017-11-06 19:37] LABS: BARBITURATES, UR NEGATIVE (NEGATIVE); BENZODIAZEPINES, UR NEGATIVE (NEGATIVE); OPIATES, UR NEGATIVE (NEGATIVE); PHENCYCLIDINE, UR NEGATIVE (NEGATIVE)
--- NOTE | 2017-11-06 20:29 | CT ---
EXAM: CT Head Without Intravenous Contrast EXAM DATE/TIME: Exam ordered 11/06/2017 6:44 PM CLINICAL HISTORY: 67 years old, male; Signs and symptoms; Altered mental status/memory loss; Confusion or disorientation; Additional info: Intermittent confusion. H/o CVA TECHNIQUE: Axial computed tomography images of the head/brain without intravenous contrast. All CT scans at this facility use one or more dose reduction techniques, viz.: automated exposure control; ma/kV adjustment per patient size (including targeted exams where dose is matched to indication; i.e. head); or iterative reconstruction technique. Coronal and sagittal reformatted images were created and reviewed. COMPARISON: No relevant prior studies available. FINDINGS: Brain: Low density is noted within the periventricular white matter extending into the ulrich radiata and centrum semi-ovale bilaterally. Small areas of low density are noted in the external capsule on the left and within the insula on the left measuring 5 mm or less. A lacunar infarct is seen in the right ulrich radiata anteriorly. There is an area of low density within the right temporal lobe that suggests a cortical infarct. No hemorrhage. Ventricles: Unremarkable. No ventriculomegaly. Bones/joints: Unremarkable. No acute fracture. Soft tissues: Unremarkable. Sinuses: Unremarkable as visualized. No acute sinusitis. Mastoid air cells: Unremarkable as visualized. No mastoid effusion. Other findings: There is a pineal cyst with a calcified rim is measuring 7 mm. IMPRESSION: 1. Small cortical infarct suggested in the right temporal lobe. 2. Three less than 5 mm low density foci seen in the left external capsule and the left insula. Appearance suggests prominent perivascular spaces or lacunar infarcts. Lacunar infarct within the right ulrich very. 3. Chronic microvascular ischemic change in the deep white matter 4. 7 mm pineal cyst.
--- NOTE | 2017-11-06 21:14 | C.PDOC ---
History Of Present Illness Pt has been having intermittent episodes of confusion over the past 4 days. Last episode was this morning. Time Seen by Provider: 11/06/17 17:40 Chief Complaint (Nursing): Altered Mental Status History Per: Patient, Family Onset/Duration Of Symptoms: Intermittent Episodes Current Symptoms Are (Timing): Better Usual Baseline: Alert Oriented, Ambulatory Exacerbating Factor(s): Unknown Use Of Anticoag/Antiplatelets: Yes Severity: Moderate Additional History Per: Prior Records Associated Symptoms: Confused Past Medical History Reviewed: Historical Data, Nursing Documentation, Vital Signs Vital Signs: Last Vital Signs Temp 98.3 F 11/06/17 16:07 Pulse 64 11/06/17 16:07 Resp 18 11/06/17 16:07 BP 103/66 11/06/17 16:07 Pulse Ox 96 11/06/17 21:20 - Medical History PMH: Asthma, CAD, Cardia Arrhythmia, CHF, CVA (affecting right side of body), Depression (denies), Diabetes, Gastritis, HTN, Hypercholesterolemia Surgical History: CABG (BENDER to LAD, SVG to OM1,OM2, SVG to Diag, SVG to PDA. AVR/MVR (bioprosth)), Coronary Stent, Pacemaker - [facility] Procedures CORONAR ARTERIOGR-2 CATH (07/19/14) DILATION OF CORONARY ARTERY, ONE SITE, PERCUTANEOUS APPROACH (05/20/16) INSERTION OF INFUSION DEV INTO SUP VENA CAVA, PERC APPROACH (01/19/17) INSPECTION OF LARYNX, ENDO (04/23/16) LEFT HEART CARDIAC CATH (07/19/14) LT HEART ANGIOCARDIOGRAM (07/19/14) MEASURE CARDIAC SAMPL & PRESSURE, BILATERAL, PERC (07/08/17) MEASURE OF CARDIAC SAMPL & PRESSURE, L HEART, PERC APPROACH (05/20/16) PLAIN RADIOGRAPHY OF L INT MAMM GRAFT USING OTH CONTRAST (05/20/16) PLAIN RADIOGRAPHY OF LEFT HEART USING OTHER CONTRAST (05/20/16) PLAIN RADIOGRAPHY OF MULT COR A GRAFT USING OTH CONTRAST (07/08/17) PLAIN RADIOGRAPHY OF MULT COR ART USING OTH CONTRAST (07/08/17) PLAIN RADIOGRAPHY OF RIGHT AND LEFT HEART USING OTH CONTRAST (07/08/17) ULTRASONOGRAPHY OF RIGHT AND LEFT HEART, TRANSESOPHAGEAL (01/19/17) Family History: States: Unknown Family Hx - Social History Hx Tobacco Use: No Hx Alcohol Use: Yes Hx Substance Use: Yes (40 years ago) - Immunization History Hx Tetanus Toxoid Vaccination: Yes Hx Influenza Vaccination: Yes Hx Pneumococcal Vaccination: Yes Review Of Systems Except As Marked, All Systems Reviewed And Found Negative. Constitutional: Negative for: Fever Cardiovascular: Negative for: Chest Pain Respiratory: Negative for: Cough, Shortness of Breath Gastrointestinal: Negative for: Vomiting, Abdominal Pain, Diarrhea Musculoskeletal: Negative for: Neck Pain Skin: Negative for: Rash Neurological: Positive for: Altered Mental Status. Negative for: Weakness, Numbness, Seizures, Headache Physical Exam - Physical Exam Appears: Non-toxic, No Acute Distress, Chronically Ill Skin: Normal Color, Warm, Dry Head: Atraumatic, Normacephalic Eye(s): bilateral: PERRL, EOMI Neck: Normal ROM, Supple Cardiovascular: Rhythm Regular Respiratory: Normal Breath Sounds, No Accessory Muscle Use Gastrointestinal/Abdominal: Soft, No Tenderness Back: No CVA Tenderness Extremity: Normal ROM Neurological/Psych: Oriented x3, No Normal Motor (Right side is slighly weaker than left, old. ), No Normal Sensation (Slightly decreased in right side compared to left) ED Course And Treatment - Laboratory Results Result Diagrams: 11/06/17 18:45 11/06/17 18:45 Lab Interpretation: No Acute Changes ECG: Interpreted By Me, Viewed By Me ECG Rhythm: Sinus Rhythm, Nonspecific Changes ECG Interpretation: No Acute Changes Rate From EC O2 Sat by Pulse Oximetry: 96 Pulse Ox Interpretation: Normal - CT Scan/US CT head Other Rad Studies (CT/US): Read By Radiologist, Radiology Report Reviewed CT/US Interpretation: IMPRESSION: 1. Small cortical infarct suggested in the right temporal lobe. . 2. Three less than 5 mm low density foci seen in the left external capsule and. the left insula. Appearance suggests prominent perivascular spaces or lacunar. infarcts. Lacunar infarct within the right ulrich very. . 3. Chronic microvascular ischemic change in the deep white matter. . 4. 7 mm pineal cyst. - Physician Consult Information Physician Contacted: Peng Puri (Neuro.) Outcome Of Conversation: He recommended admitting pt for further evaluation. NIHSS Stroke Scale - Date/Time Evaluation Performed Date Performed: 11/06/17 When Was NIHSS Performed: Baseline - How Severe is the Stoke Level of Consciousness: 0=Alert LOC to Questions: 0=Both comments correct LOC to commands: 0=Obeys both correctly Best Gaze: 0=Normal Visual: 0=No visual loss Facial: 0=Normal Motor Arm - Left: 0=No drift Motor Arm - Right: 0=No drift Motor Leg - Left: 0=No drift Motor Leg - Right: 0=No drift Limb Ataxia: 0=Absent Sensory: 1=Mild to moderate loss Best Language: 0=No aphasia Dysarthia: 0=Normal articulation Extinction & Inattention (Neglect): 0=Normal, no object Score: 1 Severity Of Stroke: 1-4= Minor Stroke rTPA Inclusion/Exclusion - Inclusion Criteria for Altepase Patient is 18 years or Older: Yes Clinical DX Ischemic Stroke Cause Neurological Deficit: Yes Time of Onset Established Less Than 270 Mins Before TX Begin: No Risk/Benefit Discussed With Patient/Family Member Present: No Disposition Discussed With DrJada: Alison Lux Comment: He accepted pt on his service. Doctor Will See Patient In The: Hospital Counseled Patient/Family Regarding: Studies Performed, Diagnosis - Disposition Disposition: HOSPITALIZED Disposition Time: 21:00 Condition: FAIR - Clinical Impression Clinical Impression: Episodic confusion, Right temporal lobe infarction
[2017-11-06] MEDS ORDERED: Promethazine 6.25 MG/5 ML CUP PO PRN (23:40)
[2017-11-06] MEDS ORDERED: Albuterol-Ipratrop 3 mg / 0.5 (3 ml) UD INH PRN (23:40)
--- NOTE | 2017-11-06 23:51 | CP.PCM.HP ---
Past Patient History - Infectious Disease Hx of Infectious Diseases: None - Past Medical History & Family History Past Medical History?: Yes - Past Social History Smoking Status: Former Smoker - CARDIAC Hx Cardia Arrhythmia: Yes Hx Congestive Heart Failure: Yes Hx Hypercholesterolemia: Yes Hx Hypertension: Yes Hx Pacemaker: Yes - PULMONARY Hx Asthma: Yes - HEENT Hx HEENT Problems: No - RENAL Hx Chronic Kidney Disease: No - ENDOCRINE/METABOLIC Hx Endocrine Disorders: Yes Hx Diabetes Mellitus Type 2: Yes - INTEGUMENTARY Hx Dermatological Problems: No Other/Comment: abdominal area with surgical scars - MUSCULOSKELETAL/RHEUMATOLOGICAL Hx Fractures: No - GASTROINTESTINAL Hx Gastritis: Yes - PSYCHIATRIC Hx Depression: Yes (denies) Hx Substance Use: Yes (40 years ago) - SURGICAL HISTORY Hx Coronary Artery Bypass Graft: Yes (BENDER to LAD, SVG to OM1,OM2, SVG to Diag, SVG to PDA. AVR/MVR (bioprosth)) Hx Coronary Stent: Yes - ANESTHESIA Hx Anesthesia: Yes Hx Anesthesia Reactions: No Hx Malignant Hyperthermia: No Meds Allergies/Adverse Reactions: Allergies Allergy/AdvReac Type Severity Reaction Status Date / Time iodine Allergy Intermediate SHORTNESS Verified 08/24/17 07:35 OF BREATH shellfish derived Allergy Intermediate ANGIOEDEMA Verified 08/24/17 07:35 milk Allergy Mild SHORTNESS Verified 08/24/17 07:35 OF BREATH Results - Vital Signs Recent Vital Signs: Last Vital Signs Temp 98.3 F 11/06/17 16:07 Pulse 74 11/06/17 21:52 Resp 23 11/06/17 21:52 BP 139/87 11/06/17 21:52 Pulse Ox 94 L 11/06/17 21:52 - Labs Result Diagrams: 11/06/17 18:45 11/06/17 18:45 Labs: Laboratory Results - last 24 hr 11/06/17 11/06/17 11/06/17 18:45 18:45 18:45 WBC 9.1 RBC 5.33 Hgb 13.3 Hct 42.5 MCV 79.7 L MCH 25.0 L MCHC 31.3 L RDW 19.1 H Plt Count 183 MPV 9.4 Neut % (Auto) 73.3 Lymph % (Auto) 13.5 L [place] % (Auto) 8.1 Eos % (Auto) 4.0 Baso % (Auto) 1.1 Neut # 6.7 Lymph # 1.2 [place] # 0.7 Eos # 0.4 Baso # 0.1 PT 11.4 INR 1.0 APTT 30 Sodium 131 L Potassium 4.1 Chloride 95 L Carbon Dioxide 28 Anion Gap 11 BUN 15 Creatinine 1.1 Est GFR ( Amer) > 60 Est GFR (Non-Af Amer) > 60 Random Glucose 315 H Calcium 8.2 L Total Bilirubin 1.0 AST 43 ALT 47 Alkaline Phosphatase 68 Ammonia Troponin I 0.0350 Total Protein 7.2 Albumin 3.9 Globulin 3.3 Albumin/Globulin Ratio 1.2 Urine Color Urine Clarity Urine pH Ur Specific [place] Urine Protein Urine Glucose (UA) Urine Ketones Urine Blood Urine Nitrate Urine Bilirubin Urine Urobilinogen Ur Leukocyte Esterase Urine WBC (Auto) Urine RBC (Auto) Ur Squamous Epith Cells Hyaline Casts Urine Opiates Screen Urine Methadone Screen Ur Barbiturates Screen Ur Phencyclidine Scrn Ur Amphetamines Screen U Benzodiazepines Scrn U Oth Cocaine Metabols U Cannabinoids Screen Alcohol, Quantitative < 10 11/06/17 11/06/17 11/06/17 18:45 19:00 19:00 WBC RBC Hgb Hct MCV MCH MCHC RDW Plt Count MPV Neut % (Auto) Lymph % (Auto) [place] % (Auto) Eos % (Auto) Baso % (Auto) Neut # Lymph # [place] # Eos # Baso # PT INR APTT Sodium Potassium Chloride Carbon Dioxide Anion Gap BUN Creatinine Est GFR ( Amer) Est GFR (Non-Af Amer) Random Glucose Calcium Total Bilirubin AST ALT Alkaline Phosphatase Ammonia < 9 L Troponin I Total Protein Albumin Globulin Albumin/Globulin Ratio Urine Color Yellow Urine Clarity Clear Urine pH 5.0 Ur Specific [place] 1.027 Urine Protein 2+ H Urine Glucose (UA) 3+ H Urine Ketones Negative Urine Blood Negative Urine Nitrate Negative Urine Bilirubin Negative Urine Urobilinogen Normal Ur Leukocyte Esterase Neg Urine WBC (Auto) 1 Urine RBC (Auto) 2 Ur Squamous Epith Cells < 1 Hyaline Casts >20 H Urine Opiates Screen Negative Urine Methadone Screen Negative Ur Barbiturates Screen Negative Ur Phencyclidine Scrn Negative Ur Amphetamines Screen Negative U Benzodiazepines Scrn Negative U Oth Cocaine Metabols Negative U Cannabinoids Screen Negative Alcohol, Quantitative
[2017-11-07] MEDS: Sodium Chloride 0.9% 1,000 ML IV SCH ×2 (00:57→21:03)
[2017-11-07 06:10] LABS: BASO # 0.1 K/uL (0.0-0.2); BASO % 0.8 % (0.0-2.0); EOS # 0.4 K/uL (0.0-0.7); EOS % 5.6 % (0.0-4.0); HEMOGLOBIN 13.5 g/dL (12.0-18.0); LYMPH # 1.4 K/uL (1.0-4.3); LYMPH % 17.2 % (20.0-40.0); MEAN CELL VOLUME 80.2 fL (80.0-94.0); MEAN CORPUSCULAR HEMOGLOBIN 25.2 pg (27.0-31.0); MEAN CORPUSCULAR HGB CONC 31.4 g/dL (33.0-37.0); MONO # 0.7 K/uL (0.0-0.8); MONO % 9.1 % (0.0-10.0); NEUT # 5.3 K/uL (1.8-7.0); NEUT % 67.3 % (50.0-75.0); RBC 5.38 Mil/uL (4.40-5.90); RED CELL DISTRIBUTION WIDTH 19.3 % (11.5-14.5); WHITE BLOOD COUNT 7.9 K/uL (4.8-10.8)
[2017-11-07 06:22] LABS: ALB/GLOB RATIO 1.1 (1.0-2.1); ALBUMIN 3.8 g/dL (3.5-5.0); ALT/SGPT 50 U/L (21-72); AST/SGOT 48 U/L (17-59); BLOOD UREA NITROGEN 17 mg/dL (9-20); CALCIUM 8.3 mg/dl (8.6-10.4); GFR AFRICAN-AMERICAN > 60; GFR NON-AFRICAN AMERICAN > 60
[2017-11-07 07:28] LABS: FOLATE > 20.0 ng/mL
[2017-11-07] MEDS ORDERED: Home Med 1 UNIT (Methylprednisolone [Medrol Dose Pack (21 Tabs)] 4 MG) PO SCH (10:00)
[2017-11-07] MEDS: Enoxaparin 40 mg Syringe SC SCH (11:20)
[2017-11-07] MEDS: Pantoprazole 40 mg EC Tab PO SCH (11:22)
[2017-11-07] MEDS: guaiFENesin 600 mg ER Tab PO SCH ×2 (12:25→17:54)
--- NOTE | 2017-11-07 13:36 | CP.PCM.CON ---
History of Present Illness - History of Present Illness History of Present Illness: Mr. Naqvi 67-year-old man with a past medical history of Asthma, CAD, Cardia Arrhythmia, CHF, CVA (affecting right side of body), Depression (denies), Diabetes, Gastritis, HTN, Hypercholesterolemia, who states that for the past several days he has been having episodes of confusion lasting for 15-20 minutes and then resolving. This has been happening more frequently over the last 4 days and he has noticed that it is worse when he does not get enough sleep at night. Review of Systems - Review of Systems All systems: reviewed and no additional remarkable complaints except Past Patient History - Infectious Disease Hx of Infectious Diseases: None - Past Medical History & Family History Past Medical History?: Yes - Past Social History Smoking Status: Former Smoker - CARDIAC Hx Cardia Arrhythmia: Yes Hx Congestive Heart Failure: Yes Hx Hypercholesterolemia: Yes Hx Hypertension: Yes Hx Pacemaker: Yes - PULMONARY Hx Asthma: Yes - HEENT Hx HEENT Problems: No - RENAL Hx Chronic Kidney Disease: No - ENDOCRINE/METABOLIC Hx Endocrine Disorders: Yes Hx Diabetes Mellitus Type 2: Yes - INTEGUMENTARY Hx Dermatological Problems: No Other/Comment: abdominal area with surgical scars - MUSCULOSKELETAL/RHEUMATOLOGICAL Hx Fractures: No - GASTROINTESTINAL Hx Gastritis: Yes - PSYCHIATRIC Hx Depression: Yes (denies) Hx Substance Use: Yes (40 years ago) - SURGICAL HISTORY Hx Coronary Artery Bypass Graft: Yes (BENDER to LAD, SVG to OM1,OM2, SVG to Diag, SVG to PDA. AVR/MVR (bioprosth)) Hx Coronary Stent: Yes - ANESTHESIA Hx Anesthesia: Yes Hx Anesthesia Reactions: No Hx Malignant Hyperthermia: No Meds Allergies/Adverse Reactions: Allergies Allergy/AdvReac Type Severity Reaction Status Date / Time iodine Allergy Intermediate SHORTNESS Verified 08/24/17 07:35 OF BREATH shellfish derived Allergy Intermediate ANGIOEDEMA Verified 08/24/17 07:35 milk Allergy Mild SHORTNESS Verified 08/24/17 07:35 OF BREATH - Medications Medications: Current Medications Albuterol/Ipratropium (Duoneb 3 Mg/0.5 Mg (3 Ml) Ud) 3 ml INH RQ6 PRN PRN Reason: Shortness of Breath Aspirin (Ecotrin) 81 mg PO DAILY [facility] Last Admin: 11/07/17 11:22 Dose: 81 mg Carvedilol (Coreg) 12.5 mg PO BID [facility] Last Admin: 11/07/17 11:21 Dose: 12.5 mg Enoxaparin Sodium (Lovenox) 40 mg SC DAILY [facility] Last Admin: 11/07/17 11:20 Dose: 40 mg Furosemide (Lasix) 40 mg PO DAILY [facility] Last Admin: 11/07/17 11:22 Dose: 40 mg Gabapentin (Neurontin) 400 mg PO TID [facility] Last Admin: 11/07/17 12:25 Dose: 400 mg Glimepiride (Amaryl) 4 mg PO DAILY [facility] Guaifenesin (Mucinex La) 600 mg PO BID [facility] Last Admin: 11/07/17 12:25 Dose: 600 mg Home Med (Methylprednisolone [Medrol Dose Pack (21 Tabs)]) 4 mg PO DAILY [facility] Sodium Chloride (Sodium Chloride 0.9%) 1,000 mls @ 50 mls/hr IV .Q20H [facility] Last Admin: 11/07/17 00:57 Dose: 50 mls/hr Pantoprazole Sodium (Protonix Ec Tab) 40 mg PO DAILY [facility] Last Admin: 11/07/17 11:22 Dose: 40 mg Promethazine HCl (Phenergan Syrup) 6.25 mg PO Q6H PRN PRN Reason: Cough Last Admin: 11/07/17 12:26 Dose: 6.25 mg Rosuvastatin Calcium (Crestor) 10 mg PO HS [facility] Ticagrelor (Brilinta) 90 mg PO BID [facility] Last Admin: 11/07/17 11:21 Dose: 90 mg Physical Exam - Constitutional Appears: Well - Head Exam Head Exam: ATRAUMATIC, NORMAL INSPECTION, NORMOCEPHALIC - Eye Exam Eye Exam: EOMI, Normal appearance, PERRL - ENT Exam ENT Exam: Mucous Membranes Moist, Normal Exam - Neck Exam Neck exam: Positive for: Normal Inspection - Respiratory Exam Respiratory Exam: Clear to Auscultation Bilateral, NORMAL BREATHING PATTERN - Cardiovascular Exam Cardiovascular Exam: REGULAR RHYTHM, +S1, +S2 - GI/Abdominal Exam GI & Abdominal Exam: Normal Bowel Sounds, Soft. absent: Tenderness - Rectal Exam Rectal Exam: Deferred - Neurological Exam Neurological exam: Alert, CN II-XII Intact, Normal Gait, Oriented x3, Reflexes Normal Additional comments: Right upper extremity with worsened fine motor movements. Results - Vital Signs Recent Vital Signs: Last Vital Signs Temp 98.3 F 11/06/17 16:07 Pulse 68 11/07/17 05:01 Resp 12 11/07/17 05:01 BP 145/87 11/07/17 11:22 Pulse Ox 96 11/07/17 05:01 - Labs Result Diagrams: 11/07/17 06:07 11/07/17 06:07 Labs: Laboratory Results - last 24 hr 11/06/17 11/06/17 11/06/17 16:14 18:45 18:45 WBC 9.1 RBC 5.33 Hgb 13.3 Hct 42.5 MCV 79.7 L MCH 25.0 L MCHC 31.3 L RDW 19.1 H Plt Count 183 MPV 9.4 Neut % (Auto) 73.3 Lymph % (Auto) 13.5 L [place] % (Auto) 8.1 Eos % (Auto) 4.0 Baso % (Auto) 1.1 Neut # 6.7 Lymph # 1.2 [place] # 0.7 Eos # 0.4 Baso # 0.1 PT 11.4 INR 1.0 APTT 30 Sodium Potassium Chloride Carbon Dioxide Anion Gap BUN Creatinine Est GFR ( Amer) Est GFR (Non-Af Amer) POC Glucose (mg/dL) 312 H Random Glucose Calcium Total Bilirubin AST ALT Alkaline Phosphatase Ammonia Troponin I Total Protein Albumin Globulin Albumin/Globulin Ratio Vitamin B12 Folate Urine Color Urine Clarity Urine pH Ur Specific [place] Urine Protein Urine Glucose (UA) Urine Ketones Urine Blood Urine Nitrate Urine Bilirubin Urine Urobilinogen Ur Leukocyte Esterase Urine WBC (Auto) Urine RBC (Auto) Ur Squamous Epith Cells Hyaline Casts Urine Opiates Screen Urine Methadone Screen Ur Barbiturates Screen Ur Phencyclidine Scrn Ur Amphetamines Screen U Benzodiazepines Scrn U Oth Cocaine Metabols U Cannabinoids Screen Alcohol, Quantitative 11/06/17 11/06/17 11/06/17 18:45 18:45 19:00 WBC RBC Hgb Hct MCV MCH MCHC RDW Plt Count MPV Neut % (Auto) Lymph % (Auto) [place] % (Auto) Eos % (Auto) Baso % (Auto) Neut # Lymph # [place] # Eos # Baso # PT INR APTT Sodium 131 L Potassium 4.1 Chloride 95 L Carbon Dioxide 28 Anion Gap 11 BUN 15 Creatinine 1.1 Est GFR ( Amer) > 60 Est GFR (Non-Af Amer) > 60 POC Glucose (mg/dL) Random Glucose 315 H Calcium 8.2 L Total Bilirubin 1.0 AST 43 ALT 47 Alkaline Phosphatase 68 Ammonia < 9 L Troponin I 0.0350 Total Protein 7.2 Albumin 3.9 Globulin 3.3 Albumin/Globulin Ratio 1.2 Vitamin B12 Folate Urine Color Yellow Urine Clarity Clear Urine pH 5.0 Ur Specific [place] 1.027 Urine Protein 2+ H Urine Glucose (UA) 3+ H Urine Ketones Negative Urine Blood Negative Urine Nitrate Negative Urine Bilirubin Negative Urine Urobilinogen Normal Ur Leukocyte Esterase Neg Urine WBC (Auto) 1 Urine RBC (Auto) 2 Ur Squamous Epith Cells < 1 Hyaline Casts >20 H Urine Opiates Screen Urine Methadone Screen Ur Barbiturates Screen Ur Phencyclidine Scrn Ur Amphetamines Screen U Benzodiazepines Scrn U Oth Cocaine Metabols U Cannabinoids Screen Alcohol, Quantitative < 10 11/06/17 11/07/17 11/07/17 19:00 06:07 06:07 WBC 7.9 RBC 5.38 Hgb 13.5 Hct 43.1 MCV 80.2 MCH 25.2 L MCHC 31.4 L RDW 19.3 H Plt Count 163 MPV 9.0 Neut % (Auto) 67.3 Lymph % (Auto) 17.2 L [place] % (Auto) 9.1 Eos % (Auto) 5.6 H Baso % (Auto) 0.8 Neut # 5.3 Lymph # 1.4 [place] # 0.7 Eos # 0.4 Baso # 0.1 PT INR APTT Sodium 133 Potassium 4.3 Chloride 98 Carbon Dioxide 28 Anion Gap 12 BUN 17 Creatinine 1.0 Est GFR ( Amer) > 60 Est GFR (Non-Af Amer) > 60 POC Glucose (mg/dL) Random Glucose 324 H Calcium 8.3 L Total Bilirubin 0.8 AST 48 ALT 50 Alkaline Phosphatase 67 Ammonia Troponin I Total Protein 7.1 Albumin 3.8 Globulin 3.3 Albumin/Globulin Ratio 1.1 Vitamin B12 652 Folate > 20.0 Urine Color Urine Clarity Urine pH Ur Specific [place] Urine Protein Urine Glucose (UA) Urine Ketones Urine Blood Urine Nitrate Urine Bilirubin Urine Urobilinogen Ur Leukocyte Esterase Urine WBC (Auto) Urine RBC (Auto) Ur Squamous Epith Cells Hyaline Casts Urine Opiates Screen Negative Urine Methadone Screen Negative Ur Barbiturates Screen Negative Ur Phencyclidine Scrn Negative Ur Amphetamines Screen Negative U Benzodiazepines Scrn Negative U Oth Cocaine Metabols Negative U Cannabinoids Screen Negative Alcohol, Quantitative Assessment & Plan (1) Acute encephalopathy Assessment and Plan: These episodes, in the setting of prior infarcts, especially involving the temporal lobe could be due to complex partial seizures or may be TIAs. I recommend the followin. Telemetry 2. MRI of the brain without contrast 3. Echocardiogram with bubble study 4. EEG awake and drowsy for 30 minutes 5. Continue current medications 6. PT/OT eval and treat 7. DVT Px 8. Fluids with NS at 75 mL/hr 9. Case management consult 10. Consider sleep study Thank you. Status: Acute Priority: High
[2017-11-07] MEDS: (Novolog) Insulin Aspart, Recombinant 100 u/ml 10 ml vial SC SCH ×2 (17:56→21:13)
--- NOTE | 2017-11-07 19:32 | CP.PCM.PN ---
Subjective - Date & Time of Evaluation Date of Evaluation: 11/07/17 Time of Evaluation: 15:00 - Subjective Subjective: clinically same Objective - Vital Signs/Intake and Output Vital Signs (last 24 hours): Temp Pulse Resp BP Pulse Ox 98 F 66 18 140/84 96 11/07/17 15:00 11/07/17 15:00 11/07/17 15:00 11/07/17 18:11 11/07/17 05:01 Intake and Output: 11/07/17 11/08/17 18:59 06:59 Intake Total 62672 Output Total 2100 Balance 27394 - Medications Medications: Current Medications Albuterol/Ipratropium (Duoneb 3 Mg/0.5 Mg (3 Ml) Ud) 3 ml INH RQ6 PRN PRN Reason: Shortness of Breath Aspirin (Ecotrin) 81 mg PO DAILY [facility] Last Admin: 11/07/17 11:22 Dose: 81 mg Carvedilol (Coreg) 12.5 mg PO BID [facility] Last Admin: 11/07/17 18:11 Dose: 12.5 mg Enoxaparin Sodium (Lovenox) 40 mg SC DAILY [facility] Last Admin: 11/07/17 11:20 Dose: 40 mg Furosemide (Lasix) 40 mg PO DAILY [facility] Last Admin: 11/07/17 11:22 Dose: 40 mg Gabapentin (Neurontin) 400 mg PO TID [facility] Last Admin: 11/07/17 17:54 Dose: 400 mg Glimepiride (Amaryl) 4 mg PO DAILY [facility] Last Admin: 11/07/17 11:20 Dose: 4 mg Guaifenesin (Mucinex La) 600 mg PO BID [facility] Last Admin: 11/07/17 17:54 Dose: 600 mg Sodium Chloride (Sodium Chloride 0.9%) 1,000 mls @ 50 mls/hr IV .Q20H [facility] Last Admin: 11/07/17 00:57 Dose: 50 mls/hr Insulin Aspart (Novolog) 0 unit SC ACHS [facility] PRN Reason: Protocol Last Admin: 11/07/17 17:56 Dose: 8 unit Pantoprazole Sodium (Protonix Ec Tab) 40 mg PO DAILY [facility] Last Admin: 11/07/17 11:22 Dose: 40 mg Promethazine HCl (Phenergan Syrup) 6.25 mg PO Q6H PRN PRN Reason: Cough Last Admin: 11/07/17 12:26 Dose: 6.25 mg Rosuvastatin Calcium (Crestor) 10 mg PO HS [facility] Ticagrelor (Brilinta) 90 mg PO BID [facility] Last Admin: 11/07/17 18:11 Dose: 90 mg - Labs Labs: 11/07/17 06:07 11/07/17 06:07 PT 11.4 SECONDS (9.7-12.2) 11/06/17 18:45 INR 1.0 11/06/17 18:45 APTT 30 SECONDS (21-34) 11/06/17 18:45 - Constitutional Appears: Well - Head Exam Head Exam: ATRAUMATIC, NORMAL INSPECTION, NORMOCEPHALIC - Eye Exam Eye Exam: EOMI, Normal appearance, PERRL Pupil Exam: NORMAL ACCOMODATION, PERRL - ENT Exam ENT Exam: Mucous Membranes Moist, Normal Exam - Neck Exam Neck Exam: Full ROM, Normal Inspection. absent: Lymphadenopathy - Respiratory Exam Respiratory Exam: Decreased Breath Sounds - Cardiovascular Exam Cardiovascular Exam: REGULAR RHYTHM, +S1, +S2 - GI/Abdominal Exam GI & Abdominal Exam: Soft, Diminished Bowel Sounds - Rectal Exam Rectal Exam: Deferred
[2017-11-07 22:04] LABS: HDL CHOLESTEROL 31 mg/dL (30-70)
[2017-11-07 22:15] LABS: LDL CHOLESTEROL 48 mg/dL (0-129)
[2017-11-08] MEDS: (Novolog) Insulin Aspart, Recombinant 100 u/ml 10 ml vial SC SCH ×4 (08:55→21:25)
[2017-11-08] MEDS: Enoxaparin 40 mg Syringe SC SCH (09:03)
[2017-11-08] MEDS: Pantoprazole 40 mg EC Tab PO SCH (09:04)
[2017-11-08] MEDS: guaiFENesin 600 mg ER Tab PO SCH ×2 (09:04→21:52)
--- NOTE | 2017-11-08 09:56 | CP.PCM.PN ---
Subjective - Date & Time of Evaluation Date of Evaluation: 11/08/17 Time of Evaluation: 09:54 - Subjective Subjective: Mr. Azul was seen and examined at the bedside. He is alert, oriented in all spheres. He denies any headache, dizziness, lightheadedness, blurred vision, numbness, nausea, or vomiting. He further states of consuming high carbs. diet for the past couple months. He further states of noticing his unsteady gait since he has been consuming foods high in sugar. He is able to follow simple commands. There was no untoward events overnight. Objective - Vital Signs/Intake and Output Vital Signs (last 24 hours): Temp Pulse Resp BP Pulse Ox 98 F 59 L 14 166/93 H 96 11/08/17 05:56 11/08/17 08:24 11/08/17 08:24 11/08/17 09:05 11/07/17 05:01 Intake and Output: 11/08/17 11/08/17 06:59 18:59 Intake Total 290 0 Output Total 1200 Balance -910 0 - Medications Medications: Current Medications Albuterol/Ipratropium (Duoneb 3 Mg/0.5 Mg (3 Ml) Ud) 3 ml INH RQ6 PRN PRN Reason: Shortness of Breath Aspirin (Ecotrin) 81 mg PO DAILY [facility] Last Admin: 11/08/17 09:04 Dose: 81 mg Carvedilol (Coreg) 12.5 mg PO BID [facility] Last Admin: 11/08/17 09:05 Dose: 12.5 mg Enoxaparin Sodium (Lovenox) 40 mg SC DAILY [facility] Last Admin: 11/08/17 09:03 Dose: 40 mg Furosemide (Lasix) 40 mg PO DAILY [facility] Last Admin: 11/08/17 09:05 Dose: 40 mg Gabapentin (Neurontin) 400 mg PO TID [facility] Last Admin: 11/08/17 09:04 Dose: 400 mg Glimepiride (Amaryl) 4 mg PO DAILY [facility] Last Admin: 11/08/17 09:04 Dose: 4 mg Guaifenesin (Mucinex La) 600 mg PO Q12 [facility] Last Admin: 11/08/17 09:04 Dose: 600 mg Sodium Chloride (Sodium Chloride 0.9%) 1,000 mls @ 50 mls/hr IV .Q20H [facility] Last Admin: 11/07/17 21:03 Dose: Not Given Insulin Aspart (Novolog) 0 unit SC ACHS [facility] PRN Reason: Protocol Last Admin: 11/08/17 08:55 Dose: 4 unit Pantoprazole Sodium (Protonix Ec Tab) 40 mg PO DAILY [facility] Last Admin: 11/08/17 09:04 Dose: 40 mg Promethazine HCl (Phenergan Syrup) 6.25 mg PO Q6H PRN PRN Reason: Cough Last Admin: 11/07/17 12:26 Dose: 6.25 mg Rosuvastatin Calcium (Crestor) 10 mg PO HS [facility] Last Admin: 11/07/17 21:10 Dose: 10 mg Ticagrelor (Brilinta) 90 mg PO BID [facility] Last Admin: 11/08/17 09:05 Dose: 90 mg - Labs Labs: 11/07/17 06:07 11/07/17 06:07 PT 11.4 SECONDS (9.7-12.2) 11/06/17 18:45 INR 1.0 11/06/17 18:45 APTT 30 SECONDS (21-34) 11/06/17 18:45 - Constitutional Appears: No Acute Distress - Head Exam Head Exam: NORMAL INSPECTION - Neurological Exam Neurological Exam: Alert, Awake, CN II-XII Intact, Oriented x3 Neuro motor strength exam: Left Upper Extremity: 5, Right Upper Extremity: 4, Left Lower Extremity: 5, Right Lower Extremity: 4 Additional comments: He is able to answer questions appropriately and follow simple commands. Sensation remains intact. Assessment and Plan (1) Acute encephalopathy Assessment & Plan: Case discussed with Dr. Puri, Pending echocardiogram, repeat CT of the head without contrast. Please refer to primary physician regarding elevated HGBA1C, triglycerides, and cholesterol. Recommend dietary teaching prior to discharge. Status: Acute
[2017-11-08] MEDS ORDERED: Home Med 1 UNIT (Methylprednisolone [Medrol Dose Pack (21 Tabs)] 4 MG) PO SCH (10:00)
--- NOTE | 2017-11-08 11:15 | CT ---
PROCEDURE: CT HEAD WITHOUT CONTRAST. HISTORY: stroke COMPARISON: 11/06/2017 TECHNIQUE: Axial computed tomography images were obtained through the head/brain without intravenous contrast. Radiation dose: Total exam DLP = 1245 mGy-cm. This CT exam was performed using one or more of the following dose reduction techniques: Automated exposure control, adjustment of the mA and/or kV according to patient size, and/or use of iterative reconstruction technique. FINDINGS: HEMORRHAGE: No intracranial hemorrhage. BRAIN: The previously referenced bilateral periventricular white matter low-density extending into the ulrich radiata and centrum semi ovale this similar para smaller sub cm low-density in the left external capsule, consider loss left thalamus and the anterior right ulrich radiata are compatible with lacunar type infarcts are similar. The previously referenced temporal lobe cortical hypodensity with effacement of the ipsilateral sulci here is similar -compatible with previously referenced cortical infarct. No hemorrhage here seen VENTRICLES: Unremarkable. No hydrocephalus. CALVARIUM: Unremarkable. PARANASAL SINUSES: Unremarkable as visualized. No significant inflammatory changes. MASTOID AIR CELLS: Unremarkable as visualized. No inflammatory changes. 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 Atherosclerotic vascular calcifications vertebrobasilar and supraclinoid internal carotid arteries. IMPRESSION: Inferior right temporal lobe cortical infarct - approximately 2.4 x 1.2 cm -similar-appearing. Minimal mass effect per the ipsilateral sulcal effacement here. Acute subacute infarct is inferred. 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
[2017-11-08] MEDS: Sodium Chloride 0.9% 1,000 ML IV SCH (16:00)
--- NOTE | 2017-11-08 19:01 | CARD ---
APPROVED REPORT EXAM: Two-dimensional and M-mode echocardiogram with Doppler and color Doppler. Other Information Quality : GoodRhythm : INDICATION Bioprosthetic Aortic and Mitral Valve replacements Surgery/Intervention Thoracic RISK FACTORS Hypertension Hyperlipidemia 2D DIMENSIONS IVSd1.2 (0.7-1.1cm)LVDd5.6 (3.9-5.9cm) LVOT Diameter2.5 (1.8-2.4cm)PWd1.2 (0.7-1.1cm) LVDs4.4 (2.5-4.0cm)FS (%) 22.3 % LVEF (%)44.5 (>50%) M-Mode DIMENSIONS Left Atrium (MM)4.38 (2.5-4.0cm)Aortic Root3.10 (2.2-3.7cm) Aortic Cusp Exc.1.87 (1.5-2.0cm) Aortic Valve AoV Peak Wxsfiqga420.3cm/sAoV VTI53.2cmAO Peak GR.24mmHg LVOT Peak Zyjxqhpn725.5cm/sLVOT VTI29.90cmAO Mean GR.15mmHg FERNANDO (VMAX)2.11zl6XPH (VTI)2.74cm2 Mitral Valve MV E Hiqbvycw379.8cm/sMV E Peak Gr.17mmHgMV A Btfndyki317.8cm/s MV E Mean Gr.6mmHgMV IKB012vaM/A ratio1.6 MVA (PHT)1.54cm2 TDI E/Lateral E'0.0E/Medial E'0.0 Tricuspid Valve TR Peak Elsnleaq385kg/sTR Peak Gr.58ecTcSYBG23atYa LEFT VENTRICLE The left ventricle is normal size. There is normal left ventricular wall thickness. The systolic function is mildly impaired. RIGHT VENTRICLE The right ventricle is normal size. ATRIA The left atrium is mildly dilated. AORTIC VALVE There is a bioprosthetic aortic valve prosthesis. MITRAL VALVE There is a Bioprosthetic Mitral valve with mild Stenosis. TRICUSPID VALVE There is mild to moderate tricuspid regurgitation. <Conclusion> Mild LV systolic dysfunction. Dilated LA. Bioprosthetic Mitral and Aortic valves. Mild Stenosis of the Bioprosthetic Mitral valve. Mild to moderate TR. Pacemaker wire in RV?
--- NOTE | 2017-11-08 19:26 | CP.PCM.PN ---
Subjective - Date & Time of Evaluation Date of Evaluation: 11/08/17 Time of Evaluation: 14:40 - Subjective Subjective: clinically same Objective - Vital Signs/Intake and Output Vital Signs (last 24 hours): Temp Pulse Resp BP Pulse Ox 98 F 65 11 L 127/77 96 11/08/17 05:56 11/08/17 15:30 11/08/17 15:00 11/08/17 17:37 11/07/17 05:01 Intake and Output: 11/08/17 11/09/17 18:59 06:59 Intake Total 500 Balance 500 - Medications Medications: Current Medications Albuterol/Ipratropium (Duoneb 3 Mg/0.5 Mg (3 Ml) Ud) 3 ml INH RQ6 PRN PRN Reason: Shortness of Breath Aspirin (Ecotrin) 81 mg PO DAILY [facility] Last Admin: 11/08/17 09:04 Dose: 81 mg Carvedilol (Coreg) 12.5 mg PO BID [facility] Last Admin: 11/08/17 17:37 Dose: 12.5 mg Enoxaparin Sodium (Lovenox) 40 mg SC DAILY [facility] Last Admin: 11/08/17 09:03 Dose: 40 mg Furosemide (Lasix) 40 mg PO DAILY [facility] Last Admin: 11/08/17 09:05 Dose: 40 mg Gabapentin (Neurontin) 400 mg PO TID [facility] Last Admin: 11/08/17 17:37 Dose: 400 mg Glimepiride (Amaryl) 4 mg PO DAILY [facility] Last Admin: 11/08/17 09:04 Dose: 4 mg Guaifenesin (Mucinex La) 600 mg PO Q12 [facility] Last Admin: 11/08/17 09:04 Dose: 600 mg Sodium Chloride (Sodium Chloride 0.9%) 1,000 mls @ 50 mls/hr IV .Q20H [facility] Last Admin: 11/07/17 21:03 Dose: Not Given Insulin Aspart (Novolog) 0 unit SC ACHS [facility] PRN Reason: Protocol Pantoprazole Sodium (Protonix Ec Tab) 40 mg PO DAILY [facility] Last Admin: 11/08/17 09:04 Dose: 40 mg Promethazine HCl (Phenergan Syrup) 6.25 mg PO Q6H PRN PRN Reason: Cough Last Admin: 11/07/17 12:26 Dose: 6.25 mg Rosuvastatin Calcium (Crestor) 10 mg PO HS [facility] Last Admin: 11/07/17 21:10 Dose: 10 mg Ticagrelor (Brilinta) 90 mg PO BID [facility] Last Admin: 11/08/17 17:37 Dose: 90 mg - Labs Labs: 11/07/17 06:07 11/07/17 06:07 PT 11.4 SECONDS (9.7-12.2) 11/06/17 18:45 INR 1.0 11/06/17 18:45 APTT 30 SECONDS (21-34) 11/06/17 18:45
[2017-11-08] MEDS: (Lantus) Insulin Glargine, Recombinant SC SCH (21:24)
--- NOTE | 2017-11-09 04:43 | CON ---
DATE: ENDOCRINOLOGY CONSULTATION LOCATION: In ICU room 40 B. HISTORY OF PRESENT ILLNESS: This is a 67-year-old male with recent uncontrolled type 2 insulin requiring diabetes, presenting here with confusion and generalized body weakness, and is now being referred for diabetic evaluation and management. PAST MEDICAL HISTORY: History of type 2 diabetes, currently on Amaryl given as 4 mg daily, with hypertension and dyslipidemia, history of prior cerebrovascular disease with residual right hemiparesis, history of coronary artery disease, concomitant cardiac tachyarrhythmias and cardiac pacemaker insertion as noted. Has a previous admission for congestive heart failure with underlying ischemic cardiomyopathy. FAMILY HISTORY: Positive for diabetes and hypertension. SOCIAL HISTORY: The patient has a supportive family. No known substance use. REVIEW OF SYSTEMS: As mentioned above. Admits to generalized body weakness with easy fatigability and tiredness and suboptimal energy level. Also, admits to dizziness and lightheadedness, worse on the day of admission. No chest pains or palpitations. His oral intake has been variable with nausea, dyspepsia and vague upper abdominal pain. Also admits to marked polyuria, nocturia, and polydipsia, and recent weight loss. PHYSICAL EXAMINATION GENERAL: This is an average-built male, in no apparent distress. VITAL SIGNS: Blood pressure of 150/90, pulse of 70 beats per minute and regular, temperature 99, and respirations 20. HEENT: Head, normocephalic. Eyes, anicteric with pink conjunctivae. Funduscopy not possible at this time. Ears, nose, and throat, otherwise normal. NECK: Supple. Thyroid gland is normal in size. No carotid bruits or any cervical adenopathy. CARDIOPULMONARY: Adynamic precordium. S1 and S2 is rapid and regular. LUNGS: Clear to auscultation. ABDOMEN: Flat, soft, with positive bowel sounds. EXTREMITIES: No peripheral edema. Pulses are +2 bilaterally. LABORATORY DATA: The glucose levels have ranged from 383 to 398 mg/dL. The chemistries, BUN of 17, sodium 133, potassium 4.3, chloride 98, CO2 of 28, glucose 324, and creatinine 1.0. The triglyceride levels are 1120, cholesterol is 480. ASSESSMENT: This is a 67-year-old male with uncontrolled and decompensated type 2 insulin requiring diabetes, presenting here with altered mental status and confusion as noted. PLAN: Plan of management, because of the marked dyslipidemia related to uncontrolled diabetes, the patient will clearly need insulin therapy at this time to reduce the hyperglycemic accelerations thereof. We will start him right away on the Lantus given as 24 units subcu at bedtime daily to start tonight. We will also add NovoLog preprandial or mealtime requirement with NovoLog given as 12 units subcu t.i.d. before meals as ordered. We will modify the coverage scale to obviate hypoglycemia and detailed orders have been given. We will obtain serial chemistry and supplement accordingly as needed. We will also continue the IV hydration as ordered. Selina Marie MD
[2017-11-09 06:09] LABS: BASO # 0.1 K/uL (0.0-0.2); BASO % 0.9 % (0.0-2.0); EOS # 0.3 K/uL (0.0-0.7); EOS % 4.2 % (0.0-4.0); HEMOGLOBIN 13.5 g/dL (12.0-18.0); LYMPH # 1.8 K/uL (1.0-4.3); LYMPH % 22.3 % (20.0-40.0); MEAN CELL VOLUME 79.9 fL (80.0-94.0); MEAN CORPUSCULAR HEMOGLOBIN 24.9 pg (27.0-31.0); MEAN CORPUSCULAR HGB CONC 31.2 g/dL (33.0-37.0); MEAN PLATELET VOLUME 9.7 fL (7.2-11.7); MONO # 0.6 K/uL (0.0-0.8); MONO % 7.6 % (0.0-10.0); NEUT # 5.3 K/uL (1.8-7.0); NRBC % 0.1 % (0.0-2.0); RBC 5.44 Mil/uL (4.40-5.90); RED CELL DISTRIBUTION WIDTH 18.6 % (11.5-14.5); WHITE BLOOD COUNT 8.1 K/uL (4.8-10.8)
[2017-11-09 06:30] LABS: ALB/GLOB RATIO 1.1 (1.0-2.1); ALT/SGPT 53 U/L (21-72); AST/SGOT 50 U/L (17-59); BLOOD UREA NITROGEN 18 mg/dL (9-20); CALCIUM 8.3 mg/dl (8.6-10.4); GFR AFRICAN-AMERICAN > 60; GFR NON-AFRICAN AMERICAN > 60
--- NOTE | 2017-11-09 07:04 | CARD ---
APPROVED REPORT EKG Measurement Heart [id number] <Conclusion> Normal sinus rhythm Rightward axis Nonspecific intraventricular block Nonspecific T wave abnormality Abnormal ECG
[2017-11-09] MEDS: (Novolog) Insulin Aspart, Recombinant 100 u/ml 10 ml vial SC SCH ×7 (07:30→21:13)
[2017-11-09] MEDS: Enoxaparin 40 mg Syringe SC SCH (10:11)
[2017-11-09] MEDS: Pantoprazole 40 mg EC Tab PO SCH (10:12)
[2017-11-09] MEDS: guaiFENesin 600 mg ER Tab PO SCH ×2 (10:13→21:10)
[2017-11-09] MEDS: Sodium Chloride 0.9% 1,000 ML IV SCH (11:45)
--- NOTE | 2017-11-09 11:58 | CP.PCM.PN ---
Subjective - Date & Time of Evaluation Date of Evaluation: 11/09/17 Time of Evaluation: 11:53 - Subjective Subjective: Mr. Naqvi was seen and examined at the bedside in the ICU. He is alert, oriented and with some irritability. He states of experiencing pain in his left great toe and ankle this morning, but with the help of physical therapy it alleviate the pain. He also states of receiving several insulin injections. Explained to staff the rationale of his new insulin regimen. He verbalizes understanding. He also claims of being non-compliant to his medications due to laziness and his dependence to his girlfriend. He also verbalize of his need to change his behavior in order to prolong his life. There was no untoward events overnight. Objective - Vital Signs/Intake and Output Vital Signs (last 24 hours): Temp Pulse Resp BP Pulse Ox 98 F 62 18 125/78 96 11/09/17 05:35 11/09/17 07:30 11/09/17 05:00 11/09/17 10:15 11/07/17 05:01 Intake and Output: 11/09/17 11/09/17 06:59 18:59 Intake Total 480 0 Output Total 1000 Balance -520 0 - Medications Medications: Current Medications Albuterol/Ipratropium (Duoneb 3 Mg/0.5 Mg (3 Ml) Ud) 3 ml INH RQ6 PRN PRN Reason: Shortness of Breath Aspirin (Ecotrin) 81 mg PO DAILY [facility] Last Admin: 11/09/17 10:13 Dose: 81 mg Carvedilol (Coreg) 12.5 mg PO BID [facility] Last Admin: 11/09/17 10:15 Dose: 12.5 mg Enoxaparin Sodium (Lovenox) 40 mg SC DAILY [facility] Last Admin: 11/09/17 10:11 Dose: 40 mg Furosemide (Lasix) 40 mg PO DAILY [facility] Last Admin: 11/09/17 10:15 Dose: 40 mg Gabapentin (Neurontin) 400 mg PO TID [facility] Last Admin: 11/09/17 10:13 Dose: 400 mg Glimepiride (Amaryl) 4 mg PO DAILY [facility] Last Admin: 11/09/17 10:12 Dose: 4 mg Guaifenesin (Mucinex La) 600 mg PO Q12 [facility] Last Admin: 11/09/17 10:13 Dose: 600 mg Sodium Chloride (Sodium Chloride 0.9%) 1,000 mls @ 50 mls/hr IV .Q20H [facility] Last Admin: 11/08/17 16:00 Dose: Not Given Insulin Aspart (Novolog) 12 unit SC AC [facility] Last Admin: 11/09/17 08:39 Dose: 12 unit Insulin Aspart (Novolog) 0 unit SC ACHS [facility] PRN Reason: Protocol Last Admin: 11/09/17 07:30 Dose: Not Given Insulin Glargine (Lantus) 24 unit SC HS [facility] Last Admin: 11/08/17 21:24 Dose: 24 units Pantoprazole Sodium (Protonix Ec Tab) 40 mg PO DAILY [facility] Last Admin: 11/09/17 10:12 Dose: 40 mg Promethazine HCl (Phenergan Syrup) 6.25 mg PO Q6H PRN PRN Reason: Cough Last Admin: 11/07/17 12:26 Dose: 6.25 mg Rosuvastatin Calcium (Crestor) 10 mg PO [facility] Last Admin: 11/08/17 21:21 Dose: 10 mg Ticagrelor (Brilinta) 90 mg PO BID [facility] Last Admin: 11/09/17 10:12 Dose: 90 mg - Labs Labs: 11/09/17 05:56 11/09/17 05:58 PT 11.4 SECONDS (9.7-12.2) 11/06/17 18:45 INR 1.0 11/06/17 18:45 APTT 30 SECONDS (21-34) 11/06/17 18:45 - Constitutional Appears: No Acute Distress - Head Exam Head Exam: NORMAL INSPECTION - Neurological Exam Neurological Exam: Alert, Awake, Oriented x3 Neuro motor strength exam: Left Upper Extremity: 5, Right Upper Extremity: 5, Left Lower Extremity: 5, Right Lower Extremity: 5 Additional comments: Neurological unchanged from previous examination. Assessment and Plan (1) Acute encephalopathy Assessment & Plan: Case discussed with Dr. Puri, continue all current medical and physical regimen. Recommend to treat any underlying electrolyte imbalance to assist with his episode of confusion. Status: Acute
--- NOTE | 2017-11-09 17:28 | CP.PCM.PN ---
Subjective - Date & Time of Evaluation Date of Evaluation: 11/09/17 Time of Evaluation: 14:00 - Subjective Subjective: clinically same Objective - Vital Signs/Intake and Output Vital Signs (last 24 hours): Temp Pulse Resp BP Pulse Ox 98.4 F 69 18 125/78 96 11/09/17 07:30 11/09/17 15:00 11/09/17 15:00 11/09/17 10:15 11/07/17 05:01 Intake and Output: 11/09/17 11/09/17 06:59 18:59 Intake Total 480 0 Output Total 1000 Balance -520 0 - Medications Medications: Current Medications Albuterol/Ipratropium (Duoneb 3 Mg/0.5 Mg (3 Ml) Ud) 3 ml INH RQ6 PRN PRN Reason: Shortness of Breath Aspirin (Ecotrin) 81 mg PO DAILY [facility] Last Admin: 11/09/17 10:13 Dose: 81 mg Carvedilol (Coreg) 12.5 mg PO BID [facility] Last Admin: 11/09/17 10:15 Dose: 12.5 mg Enoxaparin Sodium (Lovenox) 40 mg SC DAILY [facility] Last Admin: 11/09/17 10:11 Dose: 40 mg Furosemide (Lasix) 40 mg PO DAILY [facility] Last Admin: 11/09/17 10:15 Dose: 40 mg Gabapentin (Neurontin) 400 mg PO TID [facility] Last Admin: 11/09/17 13:26 Dose: 400 mg Glimepiride (Amaryl) 4 mg PO DAILY [facility] Last Admin: 11/09/17 10:12 Dose: 4 mg Guaifenesin (Mucinex La) 600 mg PO Q12 [facility] Last Admin: 11/09/17 10:13 Dose: 600 mg Sodium Chloride (Sodium Chloride 0.9%) 1,000 mls @ 50 mls/hr IV .Q20H [facility] Last Admin: 11/09/17 11:45 Dose: Not Given Insulin Aspart (Novolog) 12 unit SC AC [facility] Last Admin: 11/09/17 16:33 Dose: 12 unit Insulin Aspart (Novolog) 0 unit SC ACHS [facility] PRN Reason: Protocol Last Admin: 11/09/17 16:30 Dose: Not Given Insulin Glargine (Lantus) 24 unit SC HS [facility] Last Admin: 11/08/17 21:24 Dose: 24 units Pantoprazole Sodium (Protonix Ec Tab) 40 mg PO DAILY [facility] Last Admin: 11/09/17 10:12 Dose: 40 mg Promethazine HCl (Phenergan Syrup) 6.25 mg PO Q6H PRN PRN Reason: Cough Last Admin: 11/07/17 12:26 Dose: 6.25 mg Rosuvastatin Calcium (Crestor) 10 mg PO HS [facility] Last Admin: 11/08/17 21:21 Dose: 10 mg Ticagrelor (Brilinta) 90 mg PO BID [facility] Last Admin: 11/09/17 10:12 Dose: 90 mg - Labs Labs: 11/09/17 05:56 11/09/17 05:58 PT 11.4 SECONDS (9.7-12.2) 11/06/17 18:45 INR 1.0 11/06/17 18:45 APTT 30 SECONDS (21-34) 11/06/17 18:45
[2017-11-09] MEDS: (Lantus) Insulin Glargine, Recombinant SC SCH (21:10)
[2017-11-10 06:45] LABS: GFR AFRICAN-AMERICAN > 60; GFR NON-AFRICAN AMERICAN > 60
[2017-11-10 06:48] LABS: ALB/GLOB RATIO 1.3 (1.0-2.1); ALBUMIN 3.9 g/dL (3.5-5.0); ALT/SGPT 49 U/L (21-72); AST/SGOT 53 U/L (17-59); BLOOD UREA NITROGEN 19 mg/dL (9-20); CALCIUM 7.9 mg/dl (8.6-10.4)
[2017-11-10] MEDS: (Novolog) Insulin Aspart, Recombinant 100 u/ml 10 ml vial SC SCH ×7 (08:10→22:17)
[2017-11-10] MEDS: guaiFENesin 600 mg ER Tab PO SCH ×2 (09:37→21:26)
[2017-11-10] MEDS: Enoxaparin 40 mg Syringe SC SCH (09:38)
[2017-11-10] MEDS: Pantoprazole 40 mg EC Tab PO SCH (09:38)
--- NOTE | 2017-11-10 13:34 | PN ---
DATE: SUBJECTIVE: This is a 67-year-old male with recent uncontrolled type 2 insulin requiring diabetes, presenting here with generalized body weakness and altered mental status, and has improved clinically and hemodynamically as noted. His glycemic levels are fluctuating but improved, and have ranged from 195 to 203 and 259 mg/dL. LABORATORY DATA: His latest chemistry showed a BUN of 18, sodium 127, potassium 4.3, chloride 92, CO2 of 27, glucose 233, and creatinine 1.1. His hemoglobin A1c is 15.8%, which is quite elevated and indicative of of suboptimal metabolic control. ASSESSMENT AND PLAN: So for now, we will modify his basal and bolus insulin regimen and increase the NovoLog to 14 units subcutaneously t.i.d. before meals to start today. We will also increase the basal insulin with Lantus to be given as 24 units subcutaneously at bedtime daily to start tonight. We will titrate incrementally as indicated to optimize metabolic control. We will follow. Selina Marie MD
--- NOTE | 2017-11-10 16:00 | CP.PCM.PN ---
Subjective - Date & Time of Evaluation Date of Evaluation: 11/10/17 Time of Evaluation: 12:20 - Subjective Subjective: clinically same Objective - Vital Signs/Intake and Output Vital Signs (last 24 hours): Temp Pulse Resp BP Pulse Ox 97.8 F 59 L 18 120/80 95 11/10/17 08:59 11/10/17 08:59 11/10/17 08:59 11/10/17 09:37 11/10/17 08:59 Intake and Output: 11/10/17 11/10/17 06:59 18:59 Intake Total 240 Output Total 1000 Balance -760 - Medications Medications: Current Medications Albuterol/Ipratropium (Duoneb 3 Mg/0.5 Mg (3 Ml) Ud) 3 ml INH RQ6 PRN PRN Reason: Shortness of Breath Aspirin (Ecotrin) 81 mg PO DAILY [facility] Last Admin: 11/10/17 09:37 Dose: 81 mg Carvedilol (Coreg) 12.5 mg PO BID [facility] Last Admin: 11/10/17 09:40 Dose: Not Given Enoxaparin Sodium (Lovenox) 40 mg SC DAILY [facility] Last Admin: 11/10/17 09:38 Dose: 40 mg Furosemide (Lasix) 40 mg PO DAILY [facility] Last Admin: 11/10/17 09:37 Dose: 40 mg Gabapentin (Neurontin) 400 mg PO TID [facility] Last Admin: 11/10/17 13:30 Dose: 400 mg Glimepiride (Amaryl) 4 mg PO DAILY [facility] Last Admin: 11/10/17 09:38 Dose: 4 mg Guaifenesin (Mucinex La) 600 mg PO Q12 [facility] Last Admin: 11/10/17 09:37 Dose: 600 mg Insulin Aspart (Novolog) 0 unit SC ACHS [facility] PRN Reason: Protocol Last Admin: 11/10/17 12:20 Dose: Not Given Insulin Aspart (Novolog) 14 unit SC AC [facility] Last Admin: 11/10/17 12:20 Dose: 14 unit Insulin Glargine (Lantus) 28 unit SC HS [facility] Pantoprazole Sodium (Protonix Ec Tab) 40 mg PO DAILY [facility] Last Admin: 11/10/17 09:38 Dose: 40 mg Promethazine HCl (Phenergan Syrup) 6.25 mg PO Q6H PRN PRN Reason: Cough Last Admin: 11/07/17 12:26 Dose: 6.25 mg Rosuvastatin Calcium (Crestor) 10 mg PO HS [facility] Last Admin: 11/09/17 21:10 Dose: 10 mg Ticagrelor (Brilinta) 90 mg PO BID [facility] Last Admin: 11/10/17 09:37 Dose: 90 mg - Labs Labs: 11/09/17 05:56 11/10/17 06:22 PT 11.4 SECONDS (9.7-12.2) 11/06/17 18:45 INR 1.0 11/06/17 18:45 APTT 30 SECONDS (21-34) 11/06/17 18:45
[2017-11-10 16:21] VITALS: RESP 20
[2017-11-10] MEDS ORDERED: (Lantus) Insulin Glargine, Recombinant SC SCH (22:00)
[2017-11-11] MEDS: (Novolog) Insulin Aspart, Recombinant 100 u/ml 10 ml vial SC SCH ×7 (07:32→21:45)
[2017-11-11] MEDS: guaiFENesin 600 mg ER Tab PO SCH ×2 (10:01→22:01)
[2017-11-11] MEDS: Enoxaparin 40 mg Syringe SC SCH (10:02)
[2017-11-11] MEDS: Pantoprazole 40 mg EC Tab PO SCH (10:02)
--- NOTE | 2017-11-11 14:51 | PN ---
DATE: LOCATION: Room 650. SUBJECTIVE: This is a 67-year-old male with recent uncontrolled type 2 insulin requiring diabetes with extremes of glycemic fluctuation and currently being followed closely for metabolic management. His glucose values ranged from 182 to 208 and 265 mg/dL. His latest chemistry showed a BUN of 19, sodium 132, potassium 4.3, chloride 95, CO2 of 24, glucose 275, and creatinine 1.1. So at this time, we will modify once again his basal and bolus insulin regimen, which is more physiologic in terms of efficacy of administration and also ease of self administration. We will modify the basal and bolus insulin regimen and increase the Lantus to 30 units subcu at bedtime, this is ordered. We will continue the prandial insulin with NovoLog given at 14 units subcu t.i.d. before meals as ordered. We will titrate incremental as indicated to optimize metabolic control. We will also obtain serial chemistry and supplement accordingly as needed. We will follow. Selina Marie MD
--- NOTE | 2017-11-11 20:31 | CP.PCM.PN ---
Subjective - Date & Time of Evaluation Date of Evaluation: 11/11/17 Time of Evaluation: 13:40 - Subjective Subjective: clinically same Objective - Vital Signs/Intake and Output Vital Signs (last 24 hours): Temp Pulse Resp BP Pulse Ox 97.2 F L 55 L 20 140/80 95 11/11/17 16:00 11/11/17 16:30 11/11/17 16:00 11/11/17 17:58 11/11/17 16:00 - Medications Medications: Current Medications Albuterol/Ipratropium (Duoneb 3 Mg/0.5 Mg (3 Ml) Ud) 3 ml INH RQ6 PRN PRN Reason: Shortness of Breath Aspirin (Ecotrin) 81 mg PO DAILY [facility] Last Admin: 11/11/17 10:01 Dose: 81 mg Carvedilol (Coreg) 12.5 mg PO BID [facility] Last Admin: 11/11/17 17:58 Dose: 12.5 mg Enoxaparin Sodium (Lovenox) 40 mg SC DAILY [facility] Last Admin: 11/11/17 10:02 Dose: 40 mg Furosemide (Lasix) 40 mg PO DAILY [facility] Last Admin: 11/11/17 10:01 Dose: 40 mg Gabapentin (Neurontin) 400 mg PO TID [facility] Last Admin: 11/11/17 17:57 Dose: 400 mg Glimepiride (Amaryl) 4 mg PO DAILY [facility] Last Admin: 11/11/17 10:02 Dose: 4 mg Guaifenesin (Mucinex La) 600 mg PO Q12 [facility] Last Admin: 11/11/17 10:01 Dose: 600 mg Insulin Aspart (Novolog) 0 unit SC ACHS [facility] PRN Reason: Protocol Last Admin: 11/11/17 17:59 Dose: Not Given Insulin Aspart (Novolog) 14 unit SC AC [facility] Last Admin: 11/11/17 17:58 Dose: 14 unit Insulin Glargine (Lantus) 30 unit SC HS [facility] Pantoprazole Sodium (Protonix Ec Tab) 40 mg PO DAILY [facility] Last Admin: 11/11/17 10:02 Dose: 40 mg Promethazine HCl (Phenergan Syrup) 6.25 mg PO Q6H PRN PRN Reason: Cough Last Admin: 11/07/17 12:26 Dose: 6.25 mg Rosuvastatin Calcium (Crestor) 10 mg PO HS [facility] Last Admin: 11/10/17 21:26 Dose: 10 mg Ticagrelor (Brilinta) 90 mg PO BID [facility] Last Admin: 11/11/17 17:58 Dose: 90 mg - Labs Labs: 11/09/17 05:56 11/10/17 06:22 PT 11.4 SECONDS (9.7-12.2) 11/06/17 18:45 INR 1.0 11/06/17 18:45 APTT 30 SECONDS (21-34) 11/06/17 18:45
[2017-11-11] MEDS ORDERED: (Lantus) Insulin Glargine, Recombinant SC SCH (22:00)
[2017-11-12] MEDS: (Novolog) Insulin Aspart, Recombinant 100 u/ml 10 ml vial SC SCH ×7 (07:55→21:44)
[2017-11-12] MEDS: Enoxaparin 40 mg Syringe SC SCH (09:03)
[2017-11-12] MEDS: Pantoprazole 40 mg EC Tab PO SCH (09:05)
[2017-11-12] MEDS: guaiFENesin 600 mg ER Tab PO SCH ×2 (09:05→21:41)
--- NOTE | 2017-11-12 09:57 | PN ---
DATE: ENDOCRINOLOGY FOLLOWUP NOTE LOCATION: In ICU room ___ B. SUBJECTIVE: This is a 70-year-old male with recent uncontrolled type 2 insulin-requiring diabetes, presenting here with altered mental status and increasing generalized body weakness and was evaluated for marked hyperglycemic accelerations with hyperosmolar hyperglycemic state and dehydration, and is now being followed closely for metabolic management. His glycemic levels are fluctuating, but improved, and the latest glucose levels have ranged from 282 to 370 mg/dL. His latest chemistry showed a BUN of 17, sodium 133, potassium 4.3, chloride 98, CO2 of 28, glucose 324, and creatinine 1.0. His hemoglobin A1c is 16.8%, which is quite elevated and indicative of suboptimal metabolic control of diabetic condition. His triglyceride levels are 1120 and cholesterol was 480. So, at this time, we will continue the same basal and bolus insulin regimen to allow for dose equilibration and keep him on a combination of basal insulin given as Lantus at 24 units subcu at bedtime daily as ordered. We will continue the NovoLog given as 12 units subcu t.i.d. before meals as given. We will titrate incrementally as indicated to optimize metabolic control. We will obtain serial chemistries and supplement accordingly as needed and we will also continue vigorous IV hydration as given. We will initiate diabetic education and dietary instruction also at the time of this admission and this will also include insulin self administration at this time. We will follow with you. Selina Marie MD
--- NOTE | 2017-11-12 15:00 | CP.PCM.PN ---
Subjective - Date & Time of Evaluation Date of Evaluation: 11/12/17 Time of Evaluation: 11:00 - Subjective Subjective: review coordinator notes Patient seen today, awake , alert, oriented , forget ful at times , denies any ches tpain, sob, abdominal pain, N/V/D, oob ambulating without SOB No overnight events reported by RN Objective - Vital Signs/Intake and Output Vital Signs (last 24 hours): Temp Pulse Resp BP Pulse Ox 98.0 F 51 L 20 148/81 94 L 11/12/17 07:05 11/12/17 08:10 11/12/17 07:05 11/12/17 09:05 11/12/17 07:05 - Medications Medications: Current Medications Aspirin (Ecotrin) 81 mg PO DAILY [facility] Last Admin: 11/12/17 09:04 Dose: 81 mg Carvedilol (Coreg) 12.5 mg PO BID [facility] Last Admin: 11/12/17 09:05 Dose: 12.5 mg Enoxaparin Sodium (Lovenox) 40 mg SC DAILY [facility] Last Admin: 11/12/17 09:03 Dose: 40 mg Furosemide (Lasix) 40 mg PO DAILY [facility] Last Admin: 11/12/17 09:05 Dose: 40 mg Gabapentin (Neurontin) 400 mg PO TID [facility] Last Admin: 11/12/17 14:00 Dose: 400 mg Glimepiride (Amaryl) [facility] Guaifenesin (Mucinex La) 600 mg PO Q12 [facility] Last Admin: 11/12/17 09:05 Dose: 600 mg Insulin Aspart (Novolog) 0 unit SC [facility] PRN Reason: Protocol Last Admin: 11/12/17 12:18 Dose: Not Given Insulin Aspart (Novolog) 14 unit SC AC [facility] Last Admin: 11/12/17 12:22 Dose: 14 unit Insulin Glargine (Lantus) 34 unit SC [facility] Pantoprazole Sodium (Protonix Ec Tab) 40 mg PO DAILY [facility] Last Admin: 11/12/17 09:05 Dose: 40 mg Promethazine HCl (Phenergan Syrup) 6.25 mg PO Q6H PRN PRN Reason: Cough Last Admin: 11/07/17 12:26 Dose: 6.25 mg Rosuvastatin Calcium (Crestor) 10 mg PO [facility] Last Admin: 11/11/17 22:01 Dose: 10 mg Ticagrelor (Brilinta) 90 mg PO BID [facility] Last Admin: 11/12/17 09:04 Dose: 90 mg - Labs Labs: 11/09/17 05:56 11/10/17 06:22 PT 11.4 SECONDS (9.7-12.2) 11/06/17 18:45 INR 1.0 11/06/17 18:45 APTT 30 SECONDS (21-34) 11/06/17 18:45 Assessment and Plan - Assessment and Plan (Free Text) Assessment: A/P 67 yr old mal e with PMHx of AD, Cardia Arrhythmia, CHF, CVA (affecting right side of body), Depression , Diabetes, Gastritis, HTN, Hypercholesterolemia admitted for AMS patient clinically improved seen by Dr. Crystal lopez today Patient accepted at [facility] today and patient and family in agreement as per CM/SW D/W Dr. Crystal lopez , stable for discharge to [facility] today and Dr. Crystal lopez will follow the patient at [facility]
--- NOTE | 2017-11-12 15:06 | PCM.HF ---
Heart Failure Core Measure - Heart Failure Ejection Fraction: 40 % or Greater SWATHI Inhibitor Prescribed: No Contraindication/Reason for not providing: on ARB Beta-Coretta Prescribed: Carvedilol Angiotensin II Receptor Coretta Prescribed: No Contraindication/Reason for not providing: EF>50 AnticoagulationTherapy for Atrial Fibrillation/Atrialflutter: No Contraindication/Reason for not providing: no hx of afib Aldosterone Antagonist Prescribed: No Contraindication/Reason for not providing: ef>45 Hydralazine Nitrate Prescribed: No Contraindication/Reason for not providing: ef>45 Implantable Cardioverter Defibrillator Therapy: No Contraindication/Reason for not providing: has pacemaker Cardiac Resynchronization Therapy Prescribed: No Contraindication/Reason for not providing: has pacemenker - Follow up [facility] be discharged to: [facility] Follow Up Date (must be within 7 days from discharge): 11/14/17 Follow Up Time: 09:00
--- NOTE | 2017-11-12 15:26 | PN ---
DATE: ENDOCRINOLOGY FOLLOWUP NOTE LOCATION: Room 652. SUBJECTIVE: This is a 67-year-old male with recent uncontrolled type 2 insulin-requiring diabetes, presenting here with marked hyperglycemic accelerations, unassociated altered mental status and is now being followed closely for metabolic management. His glycemic levels are fluctuating, but improved, and the latest glucose levels have ranged from 174 to 212 and 208 mg/dL. His latest chemistry showed a BUN of 19, sodium 132, potassium 4.3, chloride 95, CO2 of 24, glucose 275, and creatinine 1.1. His hemoglobin A1c was reported as 15.8% as noted, which is quite elevated and indicative of suboptimal metabolic control of his diabetic condition prior to this admission and he clearly is insulin requiring at this time as obviously noted with his symptomatic response to the initiation of insulin therapy as given. ASSESSMENT AND PLAN: We will modify his basal and bolus insulin regimen at this time to optimize metabolic control and increase the Lantus to 34 units subcutaneous at bedtime daily to start tonight as ordered. We will also continue the Novolog given at 14 units subcutaneous B.I.D before meals as ordered. We will titrate incrementally as indicated to optimize metabolic control. We will follow and advise accordingly. Selina Marie MD
--- NOTE | 2017-11-12 16:46 | CP.PCM.PN ---
Subjective - Date & Time of Evaluation Date of Evaluation: 11/12/17 Time of Evaluation: 16:43 - Subjective Subjective: Mr Naqvi was seen and examined at the bedside. He is alert, oriented in all spheres. He further states that his blood sugar has been below 300 in comparison during his admission that was above 400. He denies any episodes of confusion, headache, dizziness, lightheadedness, weakness. He claims of ambulating with steady gait with the use of cane. He can follow simple commands. There was no untoward events overnight. Objective - Vital Signs/Intake and Output Vital Signs (last 24 hours): Temp Pulse Resp BP Pulse Ox 98.0 F 51 L 20 148/81 94 L 11/12/17 07:05 11/12/17 08:10 11/12/17 07:05 11/12/17 09:05 11/12/17 07:05 - Medications Medications: Current Medications Aspirin (Ecotrin) 81 mg PO DAILY [facility] Last Admin: 11/12/17 09:04 Dose: 81 mg Carvedilol (Coreg) 12.5 mg PO BID [facility] Last Admin: 11/12/17 09:05 Dose: 12.5 mg Enoxaparin Sodium (Lovenox) 40 mg SC DAILY [facility] Last Admin: 11/12/17 09:03 Dose: 40 mg Furosemide (Lasix) 40 mg PO DAILY [facility] Last Admin: 11/12/17 09:05 Dose: 40 mg Gabapentin (Neurontin) 400 mg PO TID [facility] Last Admin: 11/12/17 14:00 Dose: 400 mg Glimepiride (Amaryl) 4 mg PO ACBD [facility] Guaifenesin (Mucinex La) 600 mg PO Q12 [facility] Last Admin: 11/12/17 09:05 Dose: 600 mg Insulin Aspart (Novolog) 0 unit SC ACHS [facility] PRN Reason: Protocol Last Admin: 11/12/17 12:18 Dose: Not Given Insulin Aspart (Novolog) 14 unit SC AC [facility] Last Admin: 11/12/17 12:22 Dose: 14 unit Insulin Glargine (Lantus) 34 unit SC HS [facility] Pantoprazole Sodium (Protonix Ec Tab) 40 mg PO DAILY [facility] Last Admin: 11/12/17 09:05 Dose: 40 mg Promethazine HCl (Phenergan Syrup) 6.25 mg PO Q6H PRN PRN Reason: Cough Last Admin: 11/07/17 12:26 Dose: 6.25 mg Rosuvastatin Calcium (Crestor) 10 mg PO HS [facility] Last Admin: 11/11/17 22:01 Dose: 10 mg Ticagrelor (Brilinta) 90 mg PO BID [facility] Last Admin: 11/12/17 09:04 Dose: 90 mg - Labs Labs: 11/09/17 05:56 11/10/17 06:22 PT 11.4 SECONDS (9.7-12.2) 11/06/17 18:45 INR 1.0 11/06/17 18:45 APTT 30 SECONDS (21-34) 11/06/17 18:45 - Constitutional Appears: No Acute Distress - Head Exam Head Exam: NORMAL INSPECTION - Neurological Exam Neurological Exam: Alert, Awake, CN II-XII Intact Neuro motor strength exam: Left Upper Extremity: 5, Right Upper Extremity: 5, Left Lower Extremity: 5, Right Lower Extremity: 5 Additional comments: Neurological unchanged from previous examination. Assessment and Plan (1) Acute encephalopathy Assessment & Plan: Case discussed with Dr. Puri, continue all current medical, physical treatment. There is no new recommendations from neurology. Status: Acute
[2017-11-12 16:59] VITALS: PULSE 60; TEMP 98.7; O2SAT 95
[2017-11-12 17:33] VITALS: BP 150/90
--- NOTE | 2017-11-12 18:55 | CP.PCM.PN ---
Subjective - Date & Time of Evaluation Date of Evaluation: 11/12/17 Time of Evaluation: 13:00 - Subjective Subjective: clinically same Objective - Vital Signs/Intake and Output Vital Signs (last 24 hours): Temp Pulse Resp BP Pulse Ox 98.7 F 60 20 150/90 95 11/12/17 15:10 11/12/17 15:10 11/12/17 15:10 11/12/17 17:33 11/12/17 15:10 - Medications Medications: Current Medications Aspirin (Ecotrin) 81 mg PO DAILY [facility] Last Admin: 11/12/17 09:04 Dose: 81 mg Carvedilol (Coreg) 12.5 mg PO BID [facility] Last Admin: 11/12/17 17:33 Dose: 12.5 mg Enoxaparin Sodium (Lovenox) 40 mg SC DAILY [facility] Last Admin: 11/12/17 09:03 Dose: 40 mg Furosemide (Lasix) 40 mg PO DAILY [facility] Last Admin: 11/12/17 09:05 Dose: 40 mg Gabapentin (Neurontin) 400 mg PO TID [facility] Last Admin: 11/12/17 17:30 Dose: 400 mg Glimepiride (Amaryl) 4 mg PO ACBD [facility] Last Admin: 11/12/17 17:30 Dose: 4 mg Guaifenesin (Mucinex La) 600 mg PO Q12 [facility] Last Admin: 11/12/17 09:05 Dose: 600 mg Insulin Aspart (Novolog) 0 unit SC [facility] PRN Reason: Protocol Last Admin: 11/12/17 16:30 Dose: Not Given Insulin Aspart (Novolog) 14 unit SC AC [facility] Last Admin: 11/12/17 12:22 Dose: 14 unit Insulin Glargine (Lantus) 34 unit SC [facility] Pantoprazole Sodium (Protonix Ec Tab) 40 mg PO DAILY [facility] Last Admin: 11/12/17 09:05 Dose: 40 mg Promethazine HCl (Phenergan Syrup) 6.25 mg PO Q6H PRN PRN Reason: Cough Last Admin: 11/07/17 12:26 Dose: 6.25 mg Rosuvastatin Calcium (Crestor) 10 mg PO HS [facility] Last Admin: 11/11/17 22:01 Dose: 10 mg Ticagrelor (Brilinta) 90 mg PO BID [facility] Last Admin: 01/08/18 17:30 Dose: 90 mg - Labs Labs: 11/09/17 05:56 11/10/17 06:22 PT 11.4 SECONDS (9.7-12.2) 11/06/17 18:45 INR 1.0 11/06/17 18:45 APTT 30 SECONDS (21-34) 11/06/17 18:45
[2017-11-12] MEDS ORDERED: (Lantus) Insulin Glargine, Recombinant SC SCH (22:00)
== END 2017-11-12 22:19 | DRG 64 ==
LOC: C.ER 16:04 → C.9E 21:30 → C.9I 11-07 05:45 → C.6T 11-10 06:50
PROVIDERS: ADMIT Internal Medicine Nephrology; ATTEND Internal Medicine Nephrology
DX: I63.9 Cerebral infarction, unspecified (principal); G93.49 Other encephalopathy; E87.8 Other disorders of electrolyte and fluid balance, not elsewhere classified; E11.65 Type 2 diabetes mellitus with hyperglycemia; I11.0 Hypertensive heart disease with heart failure; I50.9 Heart failure, unspecified; I69.351 Hemiplegia and hemiparesis following cerebral infarction affecting right dominant side; E86.0 Dehydration; E78.00 Pure hypercholesterolemia, unspecified; E78.5 Hyperlipidemia, unspecified; I25.5 Ischemic cardiomyopathy; J45.909 Unspecified asthma, uncomplicated; F32.9 Major depressive disorder, single episode, unspecified; I25.10 Atherosclerotic heart disease of native coronary artery without angina pectoris; Z91.19 Patient's noncompliance with other medical treatment and regimen; Z79.4 Long term (current) use of insulin; Z95.0 Presence of cardiac pacemaker; Z87.891 Personal history of nicotine dependence; Z95.1 Presence of aortocoronary bypass graft; Z95.5 Presence of coronary angioplasty implant and graft

== ENCOUNTER 2017-11-24 17:43 | Inpatient (IN) | payer MEDICARE, MEDICAID ==
[2017-11-24 17:44] VITALS: BMI 32.5
--- NOTE | 2017-11-24 18:31 | C.PDOC ---
History Of Present Illness 67M w AMS per . he was recently admitted for similar complaints and then spent 2 weeks in a rehab facility, then was just dc today. when they got home his says he became disoriented again and c/o feeling dizzy. currently his mental status is at baseline per his . he also c/o visual disturbance in both eyes, not visual loss, says the ceiling tiles appear distorted, but he has difficulty elaborating further on this. Time Seen by Provider: 11/24/17 18:29 Chief Complaint (Nursing): Dizziness/Lightheaded Past Medical History Vital Signs: Last Vital Signs Temp 98 F 11/28/17 16:00 Pulse 61 11/28/17 16:00 Resp 20 11/28/17 16:00 BP 127/75 11/28/17 18:08 Pulse Ox 97 11/28/17 16:00 - Medical History PMH: Arthritis, Asthma, CAD, Cardia Arrhythmia, CHF, COPD, CVA (affecting right side of body), Depression (denies), Diabetes, Gastritis, HTN, Hypercholesterolemia Denies: Fractures, Chronic Kidney Disease Surgical History: CABG (BENDER to LAD, SVG to OM1,OM2, SVG to Diag, SVG to PDA. AVR/MVR (bioprosth)), Coronary Stent (x9), Pacemaker - [facility] Procedures CORONAR ARTERIOGR-2 CATH (07/19/14) DILATION OF CORONARY ARTERY, ONE SITE, PERCUTANEOUS APPROACH (05/20/16) INSERTION OF INFUSION DEV INTO SUP VENA CAVA, PERC APPROACH (01/19/17) INSPECTION OF LARYNX, ENDO (04/23/16) LEFT HEART CARDIAC CATH (07/19/14) LT HEART ANGIOCARDIOGRAM (07/19/14) MEASURE CARDIAC SAMPL & PRESSURE, BILATERAL, PERC (07/08/17) MEASURE OF CARDIAC SAMPL & PRESSURE, L HEART, PERC APPROACH (05/20/16) PLAIN RADIOGRAPHY OF L INT MAMM GRAFT USING OTH CONTRAST (05/20/16) PLAIN RADIOGRAPHY OF LEFT HEART USING OTHER CONTRAST (05/20/16) PLAIN RADIOGRAPHY OF MULT COR A GRAFT USING OTH CONTRAST (07/08/17) PLAIN RADIOGRAPHY OF MULT COR ART USING OTH CONTRAST (07/08/17) PLAIN RADIOGRAPHY OF RIGHT AND LEFT HEART USING OTH CONTRAST (07/08/17) ULTRASONOGRAPHY OF RIGHT AND LEFT HEART, TRANSESOPHAGEAL (01/19/17) Family History: States: Unknown Family Hx - Social History Hx Tobacco Use: No Hx Alcohol Use: No Hx Substance Use: Yes (40 years ago) - Immunization History Hx Tetanus Toxoid Vaccination: Yes Hx Influenza Vaccination: Yes Hx Pneumococcal Vaccination: Yes Review Of Systems Except As Marked, All Systems Reviewed And Found Negative. Constitutional: Negative for: Fever, Chills Eyes: Positive for: Vision Change Cardiovascular: Negative for: Chest Pain Respiratory: Negative for: Cough, Shortness of Breath Gastrointestinal: Negative for: Nausea, Vomiting, Abdominal Pain Neurological: Positive for: Confusion, Altered Mental Status, Dizziness. Negative for: Weakness, Numbness, Headache Physical Exam - Physical Exam Appears: Well, Non-toxic, No Acute Distress Skin: Warm, Dry Head: Atraumatic Eye(s): bilateral: PERRL, EOMI Nose: No Epistaxis Oral Mucosa: Moist Neck: Normal ROM Cardiovascular: Rhythm Regular Respiratory: No Decreased Breath Sounds, No Accessory Muscle Use Gastrointestinal/Abdominal: Soft, No Tenderness Pulses: Left Radial: Normal, Right Radial: Normal Neurological/Psych: Oriented x3, Normal Cranial Nerves, Normal Motor, Normal Sensation, Other (no focal deficits) ED Course And Treatment - Laboratory Results Result Diagrams: 11/28/17 07:18 11/28/17 07:18 O2 Sat by Pulse Oximetry: 93 Disposition - Disposition Disposition: HOSPITALIZED Disposition Time: 20:44 Condition: STABLE - Clinical Impression Clinical Impression: Dizziness, Altered mental status
[2017-11-24 19:54] LABS: BASO # 0.1 K/uL (0.0-0.2); BASO % 0.5 % (0.0-2.0); EOS # 0.4 K/uL (0.0-0.7); EOS % 3.8 % (0.0-4.0); HEMOGLOBIN 12.8 g/dL (12.0-18.0); LYMPH # 1.6 K/uL (1.0-4.3); LYMPH % 16.1 % (20.0-40.0); MEAN CORPUSCULAR HEMOGLOBIN 24.4 pg (27.0-31.0); MEAN CORPUSCULAR HGB CONC 30.9 g/dL (33.0-37.0); MEAN PLATELET VOLUME 9.4 fL (7.2-11.7); MONO # 0.7 K/uL (0.0-0.8); MONO % 7.4 % (0.0-10.0); NEUT # 7.3 K/uL (1.8-7.0); NEUT % 72.2 % (50.0-75.0); NRBC % 0.1 % (0.0-2.0); RBC 5.25 Mil/uL (4.40-5.90); RED CELL DISTRIBUTION WIDTH 18.7 % (11.5-14.5); WHITE BLOOD COUNT 10.1 K/uL (4.8-10.8)
--- NOTE | 2017-11-24 20:13 | CT ---
EXAM: CT Head Without Intravenous Contrast CLINICAL HISTORY: 67 years old, male; Signs and symptoms; Dizziness; Additional info: Dizzy TECHNIQUE: Axial computed tomography images of the head/brain without intravenous contrast. All CT scans at this facility use one or more dose reduction techniques, viz.: automated exposure control; ma/kV adjustment per patient size (including targeted exams where dose is matched to indication; i.e. head); or iterative reconstruction technique. Coronal and sagittal reformatted images were created and reviewed. COMPARISON: CT - HEAD W/O CONTRAST 2017-11-08 10:36 FINDINGS: Brain: Moderate atrophy. No intracranial hemorrhage. No mass. Mild encephalomalacia within right temporal region. Several scattered foci of decreased attenuation within periventricular/subcortical white matter. Chronic lacunar infarct within LEFT thalamus. Probable chronic lacunar infarcts about basal ganglia. No definite edema. Ventricles: No hydrocephalus. Bones/joints: No acute fracture. Soft tissues: Unremarkable. Vasculature: Atherosclerotic disease of intracranial arteries. Sinuses: No acute sinusitis. Mastoid air cells: No mastoid effusion. Orbits: Unremarkable as visualized. IMPRESSION: 1. Nonspecific white matter changes. Acute infarction may be CT occult within first 24 hours. If a focal deficit persists, consider followup CT or MRI for further evaluation. 2. Incidental/non-acute findings are described above.
[2017-11-24 20:18] LABS: ALB/GLOB RATIO 1.2 (1.0-2.1); ALBUMIN 3.9 g/dL (3.5-5.0); CALCIUM 8.6 mg/dl (8.6-10.4); TROPONIN I 0.035 ng/mL (0.00-0.120)
[2017-11-24] MEDS ORDERED: Sodium Chloride 0.9% 500 ML IV ONE (20:32)
[2017-11-24 21:02] LABS: SQUAMOUS EPITHIAL 1 /hpf (0-5); URINE BILIRUBIN NEGATIVE (NEGATIVE); URINE BLOOD NEGATIVE (NEGATIVE); URINE CLARITY Clear (Clear); URINE COLOR Yellow (YELLOW); URINE GLUCOSE (UA) NORMAL (Normal); URINE LEUKOCYTE ESTERASE NEG Leu/uL (Negative); URINE NITRATE NEGATIVE (NEGATIVE); URINE PROTEIN 2+ mg/dL (NEGATIVE)
[2017-11-25] MEDS ORDERED: Albuterol-Ipratrop 3 mg / 0.5 (3 ml) UD INH PRN (10:29)
[2017-11-25] MEDS: Enoxaparin 40 mg Syringe SC SCH (11:12)
--- NOTE | 2017-11-25 11:19 | CP.PCM.HP ---
Past Patient History - Infectious Disease Hx of Infectious Diseases: None - Past Medical History & Family History Past Medical History?: Yes - Past Social History Smoking Status: Former Smoker - CARDIAC Hx Cardia Arrhythmia: Yes Hx Congestive Heart Failure: Yes Hx Hypercholesterolemia: Yes Hx Hypertension: Yes Hx Pacemaker: Yes - PULMONARY Hx Asthma: Yes Hx Chronic Obstructive Pulmonary Disease (COPD): Yes - HEENT Hx HEENT Problems: No - RENAL Hx Chronic Kidney Disease: No - ENDOCRINE/METABOLIC Hx Endocrine Disorders: Yes Hx Diabetes Mellitus Type 2: Yes - INTEGUMENTARY Hx Dermatological Problems: No Other/Comment: abdominal area with surgical scars - MUSCULOSKELETAL/RHEUMATOLOGICAL Hx Arthritis: Yes Hx Fractures: No - GASTROINTESTINAL Hx Gastritis: Yes - PSYCHIATRIC Hx Depression: Yes (denies) Hx Substance Use: Yes (40 years ago) - SURGICAL HISTORY Hx Coronary Artery Bypass Graft: Yes (BENDER to LAD, SVG to OM1,OM2, SVG to Diag, SVG to PDA. AVR/MVR (bioprosth)) Hx Coronary Stent: Yes (x9) - ANESTHESIA Hx Anesthesia: Yes Hx Anesthesia Reactions: No Hx Malignant Hyperthermia: No Meds Allergies/Adverse Reactions: Allergies Allergy/AdvReac Type Severity Reaction Status Date / Time iodine Allergy Intermediate SHORTNESS Verified 08/24/17 07:35 OF BREATH shellfish derived Allergy Intermediate ANGIOEDEMA Verified 08/24/17 07:35 milk Allergy Mild SHORTNESS Verified 08/24/17 07:35 OF BREATH Results - Vital Signs Recent Vital Signs: Last Vital Signs Temp 97.4 F L 11/25/17 08:00 Pulse 65 11/25/17 08:00 Resp 20 11/25/17 08:00 BP 160/90 H 11/25/17 11:11 Pulse Ox 95 11/25/17 08:00 - Labs Result Diagrams: 11/24/17 19:49 11/24/17 19:49 Labs: Laboratory Results - last 24 hr 11/24/17 11/24/17 11/24/17 19:49 19:49 19:50 WBC 10.1 RBC 5.25 Hgb 12.8 Hct 41.4 MCV 79.0 L MCH 24.4 L MCHC 30.9 L RDW 18.7 H Plt Count 214 MPV 9.4 Neut % (Auto) 72.2 Lymph % (Auto) 16.1 L Sabine % (Auto) 7.4 Eos % (Auto) 3.8 Baso % (Auto) 0.5 Neut # 7.3 H Lymph # 1.6 Sabine # 0.7 Eos # 0.4 Baso # 0.1 Sodium 134 Potassium 4.4 Chloride 98 Carbon Dioxide 27 Anion Gap 13 BUN 26 H Creatinine 1.5 Est GFR ( Amer) 56 Est GFR (Non-Af Amer) 47 POC Glucose (mg/dL) Random Glucose 188 H Calcium 8.6 Total Bilirubin 0.8 AST 54 ALT 61 Alkaline Phosphatase 54 Troponin I 0.0350 NT-Pro-B Natriuret Pep 1950 H Total Protein 7.2 Albumin 3.9 Globulin 3.3 Albumin/Globulin Ratio 1.2 TSH 3rd Generation 1.87 Urine Color Urine Clarity Urine pH Ur Specific Tarrs Urine Protein Urine Glucose (UA) Urine Ketones Urine Blood Urine Nitrate Urine Bilirubin Urine Urobilinogen Ur Leukocyte Esterase Urine WBC (Auto) Urine RBC (Auto) Ur Squamous Epith Cells 11/24/17 11/25/17 11/25/17 20:56 06:07 11:06 WBC RBC Hgb Hct MCV MCH MCHC RDW Plt Count MPV Neut % (Auto) Lymph % (Auto) Sabine % (Auto) Eos % (Auto) Baso % (Auto) Neut # Lymph # Sabine # Eos # Baso # Sodium Potassium Chloride Carbon Dioxide Anion Gap BUN Creatinine Est GFR ( Amer) Est GFR (Non-Af Amer) POC Glucose (mg/dL) 208 H 194 H Random Glucose Calcium Total Bilirubin AST ALT Alkaline Phosphatase Troponin I NT-Pro-B Natriuret Pep Total Protein Albumin Globulin Albumin/Globulin Ratio TSH 3rd Generation Urine Color Yellow Urine Clarity Clear Urine pH 5.0 Ur Specific Tarrs 1.021 Urine Protein 2+ H Urine Glucose (UA) Normal Urine Ketones Negative Urine Blood Negative Urine Nitrate Negative Urine Bilirubin Negative Urine Urobilinogen 2.0 Ur Leukocyte Esterase Neg Urine WBC (Auto) < 1 Urine RBC (Auto) < 1 Ur Squamous Epith Cells 1
[2017-11-25] MEDS: (Novolog) Insulin Aspart, Recombinant 100 u/ml 10 ml vial SC SCH ×2 (12:16→18:00)
--- NOTE | 2017-11-25 12:29 | RAD ---
HISTORY: dizzy COMPARISON: No prior. FINDINGS: LUNGS: No active pulmonary disease. PLEURA: No significant pleural effusion identified, no pneumothorax apparent. CARDIOVASCULAR: Mild cardiomegaly. Valvular replacement. CABG. Permanent pacemaker. No congestive change. OSSEOUS STRUCTURES: No significant abnormalities. VISUALIZED UPPER ABDOMEN: Normal. OTHER FINDINGS: None. IMPRESSION: No active disease.
--- NOTE | 2017-11-25 16:58 | CP.PCM.CON ---
History of Present Illness - History of Present Illness History of Present Illness: Mr. Naqvi is a 67-year-old man with a past medical history of Arthritis, Asthma, CAD, Cardia Arrhythmia, CHF, COPD, CVA (affecting right side of body), Depression (denies), Diabetes, Gastritis, HTN, Hypercholesterolemia, who presented to the ED for symptoms of dizziness, spinning sensation, double vision /blurry vision. He was dehydrated after recently being discharged from the hospital. Currently, he is back to his baseline. He states that during this 3 hour episode, he was also confused and disoriented. Review of Systems - Review of Systems All systems: reviewed and no additional remarkable complaints except Past Patient History - Infectious Disease Hx of Infectious Diseases: None - Past Medical History & Family History Past Medical History?: Yes - Past Social History Smoking Status: Former Smoker - CARDIAC Hx Cardia Arrhythmia: Yes Hx Congestive Heart Failure: Yes Hx Hypercholesterolemia: Yes Hx Hypertension: Yes Hx Pacemaker: Yes - PULMONARY Hx Asthma: Yes Hx Chronic Obstructive Pulmonary Disease (COPD): Yes - HEENT Hx HEENT Problems: No - RENAL Hx Chronic Kidney Disease: No - ENDOCRINE/METABOLIC Hx Endocrine Disorders: Yes Hx Diabetes Mellitus Type 2: Yes - INTEGUMENTARY Hx Dermatological Problems: No Other/Comment: abdominal area with surgical scars - MUSCULOSKELETAL/RHEUMATOLOGICAL Hx Arthritis: Yes Hx Fractures: No - GASTROINTESTINAL Hx Gastritis: Yes - PSYCHIATRIC Hx Depression: Yes (denies) Hx Substance Use: Yes (40 years ago) - SURGICAL HISTORY Hx Coronary Artery Bypass Graft: Yes (BENDER to LAD, SVG to OM1,OM2, SVG to Diag, SVG to PDA. AVR/MVR (bioprosth)) Hx Coronary Stent: Yes (x9) - ANESTHESIA Hx Anesthesia: Yes Hx Anesthesia Reactions: No Hx Malignant Hyperthermia: No Meds Allergies/Adverse Reactions: Allergies Allergy/AdvReac Type Severity Reaction Status Date / Time iodine Allergy Intermediate SHORTNESS Verified 08/24/17 07:35 OF BREATH shellfish derived Allergy Intermediate ANGIOEDEMA Verified 08/24/17 07:35 milk Allergy Mild SHORTNESS Verified 08/24/17 07:35 OF BREATH - Medications Medications: Current Medications Albuterol/Ipratropium (Duoneb 3 Mg/0.5 Mg (3 Ml) Ud) 3 ml INH RQ6 PRN PRN Reason: Shortness of Breath Aspirin (Ecotrin) 81 mg PO DAILY [facility] Last Admin: 11/25/17 11:11 Dose: 81 mg Carvedilol (Coreg) 12.5 mg PO BID [facility] Last Admin: 11/25/17 11:11 Dose: 12.5 mg Enoxaparin Sodium (Lovenox) 40 mg SC DAILY [facility] Last Admin: 11/25/17 11:12 Dose: 40 mg Furosemide (Lasix) 40 mg PO DAILY [facility] Last Admin: 11/25/17 11:11 Dose: 40 mg Gabapentin (Neurontin) 400 mg PO TID [facility] Last Admin: 11/25/17 13:48 Dose: 400 mg Glimepiride (Amaryl) 4 mg PO ACBD [facility] Insulin Aspart (Novolog) 14 unit SC AC [facility] Last Admin: 11/25/17 12:16 Dose: 14 unit Insulin Glargine (Lantus) 30 unit SC HS [facility] Rosuvastatin Calcium (Crestor) 10 mg PO HS [facility] Ticagrelor (Brilinta) 90 mg PO BID [facility] Last Admin: 11/25/17 12:16 Dose: 90 mg Physical Exam - Constitutional Appears: Well - Head Exam Head Exam: ATRAUMATIC, NORMAL INSPECTION, NORMOCEPHALIC - Eye Exam Eye Exam: EOMI, Normal appearance, PERRL - ENT Exam ENT Exam: Mucous Membranes Moist, Normal Exam - Cardiovascular Exam Cardiovascular Exam: REGULAR RHYTHM, +S1, +S2 - GI/Abdominal Exam GI & Abdominal Exam: Normal Bowel Sounds, Soft. absent: Tenderness - Neurological Exam Neurological exam: Alert, CN II-XII Intact, Normal Gait, Oriented x3, Reflexes Normal Additional comments: Right side fine motor deficits and slight weakness as compared with the left. Results - Vital Signs Recent Vital Signs: Last Vital Signs Temp 97.6 F 11/25/17 15:05 Pulse 57 L 11/25/17 15:05 Resp 20 11/25/17 15:05 BP 130/81 11/25/17 15:05 Pulse Ox 96 11/25/17 15:05 - Labs Result Diagrams: 11/24/17 19:49 11/24/17 19:49 Labs: Laboratory Results - last 24 hr 11/24/17 11/24/17 11/24/17 19:49 19:49 19:50 WBC 10.1 RBC 5.25 Hgb 12.8 Hct 41.4 MCV 79.0 L MCH 24.4 L MCHC 30.9 L RDW 18.7 H Plt Count 214 MPV 9.4 Neut % (Auto) 72.2 Lymph % (Auto) 16.1 L Ford % (Auto) 7.4 Eos % (Auto) 3.8 Baso % (Auto) 0.5 Neut # 7.3 H Lymph # 1.6 Ford # 0.7 Eos # 0.4 Baso # 0.1 Sodium 134 Potassium 4.4 Chloride 98 Carbon Dioxide 27 Anion Gap 13 BUN 26 H Creatinine 1.5 Est GFR ( Amer) 56 Est GFR (Non-Af Amer) 47 POC Glucose (mg/dL) Random Glucose 188 H Calcium 8.6 Total Bilirubin 0.8 AST 54 ALT 61 Alkaline Phosphatase 54 Troponin I 0.0350 NT-Pro-B Natriuret Pep 1950 H Total Protein 7.2 Albumin 3.9 Globulin 3.3 Albumin/Globulin Ratio 1.2 TSH 3rd Generation 1.87 Urine Color Urine Clarity Urine pH Ur Specific [place] Urine Protein Urine Glucose (UA) Urine Ketones Urine Blood Urine Nitrate Urine Bilirubin Urine Urobilinogen Ur Leukocyte Esterase Urine WBC (Auto) Urine RBC (Auto) Ur Squamous Epith Cells 11/24/17 11/25/17 11/25/17 20:56 06:07 11:06 WBC RBC Hgb Hct MCV MCH MCHC RDW Plt Count MPV Neut % (Auto) Lymph % (Auto) Ford % (Auto) Eos % (Auto) Baso % (Auto) Neut # Lymph # Ford # Eos # Baso # Sodium Potassium Chloride Carbon Dioxide Anion Gap BUN Creatinine Est GFR ( Amer) Est GFR (Non-Af Amer) POC Glucose (mg/dL) 208 H 194 H Random Glucose Calcium Total Bilirubin AST ALT Alkaline Phosphatase Troponin I NT-Pro-B Natriuret Pep Total Protein Albumin Globulin Albumin/Globulin Ratio TSH 3rd Generation Urine Color Yellow Urine Clarity Clear Urine pH 5.0 Ur Specific [place] 1.021 Urine Protein 2+ H Urine Glucose (UA) Normal Urine Ketones Negative Urine Blood Negative Urine Nitrate Negative Urine Bilirubin Negative Urine Urobilinogen 2.0 Ur Leukocyte Esterase Neg Urine WBC (Auto) < 1 Urine RBC (Auto) < 1 Ur Squamous Epith Cells 1 11/25/17 16:36 WBC RBC Hgb Hct MCV MCH MCHC RDW Plt Count MPV Neut % (Auto) Lymph % (Auto) Ford % (Auto) Eos % (Auto) Baso % (Auto) Neut # Lymph # Ford # Eos # Baso # Sodium Potassium Chloride Carbon Dioxide Anion Gap BUN Creatinine Est GFR ( Amer) Est GFR (Non-Af Amer) POC Glucose (mg/dL) 200 H Random Glucose Calcium Total Bilirubin AST ALT Alkaline Phosphatase Troponin I NT-Pro-B Natriuret Pep Total Protein Albumin Globulin Albumin/Globulin Ratio TSH 3rd Generation Urine Color Urine Clarity Urine pH Ur Specific [place] Urine Protein Urine Glucose (UA) Urine Ketones Urine Blood Urine Nitrate Urine Bilirubin Urine Urobilinogen Ur Leukocyte Esterase Urine WBC (Auto) Urine RBC (Auto) Ur Squamous Epith Cells - Imaging and Cardiology CT scan - head Status: Image reviewed by me, Report reviewed by me (Chronic left frontal lobe infarct noted. ) Assessment & Plan (1) Acute encephalopathy Assessment and Plan: This is currently resolved, but the recurrence of these episodes is concerning for possible seizure-like events. I recommend obtaining an EEG and will order CTA to rule out cerebrovascular disease considering his history. Status: Acute Priority: High (2) Episodic confusion Assessment and Plan: Could be due to hypoperfusion, systemic disease or seizure. Continue current medications and will order EEG and CTA of the head/neck or further evaluation. Thank you. Status: Acute
[2017-11-25] MEDS: (Lantus) Insulin Glargine, Recombinant SC SCH (22:05)
[2017-11-26] MEDS: (Novolog) Insulin Aspart, Recombinant 100 u/ml 10 ml vial SC SCH ×3 (08:54→17:27)
[2017-11-26] MEDS: Enoxaparin 40 mg Syringe SC SCH (12:02)
--- NOTE | 2017-11-26 14:24 | CP.PCM.PN ---
Subjective - Date & Time of Evaluation Date of Evaluation: 11/26/17 Time of Evaluation: 14:18 - Subjective Subjective: Mr. Naqvi was seen and examined at the bedside. He is alert, oriented. He is able to answer some questions and recall previous events prior to hospitalization, but with episode of confusion with his diagnosis and medications. He is able to follow simple commands. He states that he just finished the ultrasound of the neck. He was able to tolerate PO intake. He denies any dizziness, lightheadedness, blurred vision, weakness, nausea, or vomiting. CTA of the head and neck is not possible due to the patient allergies and MRI is not also possible due to his PPM. The patient unable to recall if the PPM is a MRI compatible. There was no untoward events overnight. Objective - Vital Signs/Intake and Output Vital Signs (last 24 hours): Temp Pulse Resp BP Pulse Ox 97.5 F L 58 L 20 132/75 99 11/26/17 08:47 11/26/17 12:26 11/26/17 08:47 11/26/17 12:01 11/26/17 08:47 Intake and Output: 11/26/17 11/26/17 06:59 18:59 Intake Total 300 Balance 300 - Medications Medications: Current Medications Acetaminophen (Tylenol 325mg Tab) 650 mg PO Q6 PRN PRN Reason: Headache Last Admin: 11/25/17 20:26 Dose: 650 mg Albuterol/Ipratropium (Duoneb 3 Mg/0.5 Mg (3 Ml) Ud) 3 ml INH RQ6 PRN PRN Reason: Shortness of Breath Last Admin: 11/26/17 02:07 Dose: 3 ml Aspirin (Ecotrin) 81 mg PO DAILY [facility] Last Admin: 11/26/17 12:01 Dose: 81 mg Carvedilol (Coreg) 12.5 mg PO BID [facility] Last Admin: 11/26/17 12:01 Dose: 12.5 mg Enoxaparin Sodium (Lovenox) 40 mg SC DAILY [facility] Last Admin: 11/26/17 12:02 Dose: 40 mg Furosemide (Lasix) 40 mg PO DAILY [facility] Last Admin: 11/26/17 12:01 Dose: 40 mg Gabapentin (Neurontin) 400 mg PO TID [facility] Last Admin: 11/26/17 13:39 Dose: 400 mg Glimepiride (Amaryl) 4 mg PO ACBD [facility] Last Admin: 11/26/17 08:54 Dose: 4 mg Insulin Aspart (Novolog) 14 unit SC AC [facility] Last Admin: 11/26/17 12:28 Dose: 14 unit Insulin Glargine (Lantus) [address] [facility] Last Admin: 11/25/17 22:05 Dose: 30 units Rosuvastatin Calcium (Crestor) [address] [facility] Last Admin: 11/25/17 22:05 Dose: 10 mg Ticagrelor (Brilinta) 90 mg PO BID [facility] Last Admin: 11/26/17 12:01 Dose: 90 mg - Labs Labs: 11/24/17 19:49 11/24/17 19:49 - Constitutional Appears: No Acute Distress - Head Exam Head Exam: NORMAL INSPECTION - Neurological Exam Neurological Exam: Alert, Awake Neuro motor strength exam: Left Upper Extremity: 5, Right Upper Extremity: 5, Left Lower Extremity: 5, Right Lower Extremity: 5 Additional comments: He is able to answer questions appropriately and follow simple commands. Assessment and Plan (1) Acute encephalopathy Assessment & Plan: Case discussed with Dr. buckley, continue all current medical, physical, and occupational therapies. Recommend to treat any abnormality in the electrolytes. Pending carotid ultrasound result. Status: Acute
--- NOTE | 2017-11-26 17:48 | CP.PCM.CON ---
History of Present Illness - History of Present Illness History of Present Illness: I was asked to see patient by Dr Garza. Patient is a 67 year old male with PMH HTn, CAD s/p CABG, AVR. MVR PPM DM presents with altered mental status. The patient has had multiple admisions in the past, was recently managed for hyperglycemia. The patient states he was at home and noted disorientation. He states he was dysarthric. He denied headache , chest pain palpitiatons. Review of Systems - Constitutional Constitutional: absent: As Per HPI, Anorexia, Chills, Daytime Sleepiness, Excessive Sweating, Fatigue, Fever, Frequent Falls, Headache, Increased Appetite , Lethargy, Malaise, Night Sweats, Snoring, Sleep Apnea, Weight Gain, Weight Loss, Weakness, Other - EENT Eyes: absent: As Per HPI, Blind Spots, Blurred Vision, Change in Vision, Decreased Night Vision, Diplopia, Discharge, Dry Eye, Exophthalmos, Floaters, Irritation, Itchy Eyes, Loss of Peripheral Vision, Pain, Photophobia, Requires Corrective Lenses, Sees Flashes, Spots in Vision, Tunnel Vision, Other Visual Disturbances, Loss of Vision, Other Ears: absent: As Per HPI, Decreased Hearing, Ear Discharge, Ear Pain, Tinnitus, Abnormal Hearing, Disequilibrium, Dizziness, Other Nose/Mouth/Throat: absent: As Per HPI, Epistaxis, Nasal Congestion, Nasal Discharge, Nasal Obstruction, Nasal Trauma, Nose Pain, Post Nasal Drip, Sinus Pain, Sinus Pressure, Bleeding Gums, Change in Voice, Dental Pain, Dry Mouth, Dysphagia, Halitosis, Hoarsness, Lip Swelling, Mouth Lesions, Mouth Pain, Odynophagia, Sore Throat, Throat Swelling, Tongue Swelling, Facial Pain, Neck Pain, Neck Mass, Other - Cardiovascular Cardiovascular: absent: As Per HPI, Acrocyanosis, Chest Pain, Chest Pain at Rest , Chest Pain with Activity, Claudication, Diaphoresis, Dyspnea, Dyspnea on Exertion, Edema, Irregular Heart Rhythm, Pain Radiating to Arm/Neck/Jaw, Leg Edema, Leg Ulcers, Lightheadedness, Orthopnea, Palpitations, Paroxysmal Nocturnal Dyspnea, Pedal Edema, Radiating Pain, Rapid Heart Rate, Slow Heart Rate, Syncope, Other - Respiratory Respiratory: absent: As Per HPI, Cough, Dyspnea, Hemoptysis, Dyspnea on Exertion , Wheezing, Snoring, Stridor, Pain on Inspiration, Chest Congestion, Excessive Mucous Production, Change in Mucous Color, Pain with Coughing, Other - Gastrointestinal Gastrointestinal: absent: As Per HPI, Abdominal Pain, Belching, Bloating, Change in Bowel Habits, Change in Stool Character, Coffee Ground Emesis, Constipation, Cramping, Diarrhea, Dyspepsia, Dysphagia, Early Satiety, Excessive Flatus, Fecal Incontinence, Heartburn, Hematemesis, Hematochezia, Loose Stools, Melena, Nausea, Odynophagia, Temesmus, Vomiting, Other - Genitourinary Genitourinary: absent: As Per HPI, Change in Urinary Stream, Difficulty Urinating, Dysuria, Flank Pain, Hematuria, Pyuria, Nocturia, Urinary Incontinence, Urinary Frequency, Urinary Hesitance, Urinary Urgency, Voiding Freq/Small Amts, Freq UTI, Hx Renal/Bladder Calculi, Hx /Renal Surgery, Bladder Distension, Other - Musculoskeletal Musculoskeletal: absent: As Per HPI, Abnormal Gait, Arthralgias, Atrophy, Back Pain, Deformity, Joint Swelling, Limited Range of Motion, Loss of Height, Muscle Cramps, Muscle Weakness, Myalgias, Neck Pain, Numbness, Radiating Pain into Limb, Stiffness, Tingling, Other - Integumentary Integumentary: absent: As Per HPI, Acne, Alopecia, Bleeding Lesions, Change in Hair, Change in Nails, Change in Pigmentation, Changing Lesions, Dry Skin, Erythema, Furuncle, Hirsutism, Lesions, New Lesions, Non-Healing Lesions, Photosensitivity, Pruritus, Rash, Skin Pain, Skin Ulcer, Sores, Striae, Swelling , Unusual Bruising, Wounds, Jaundice, Other - Neurological Neurological: Disequilibrium - Psychiatric Psychiatric: absent: As Per HPI, Abnormal Sleep Pattern, Anhedonia, Anxiety, Auditory Hallucinations, Behavioral Changes, Change in Appetite, Change in Libido, Confusion, Depression, Difficulty Concentrating, Hallucinations, Homicidal Ideation, Hopelessness, Irritability, Memory Loss, Mood Swings, Panic Attacks, Paranoia, Suicidal Ideation, Visual Hallucinations, Tactile Hallucinations, Other - Endocrine Endocrine: absent: As Per HPI, Change in Body Appearance, Change in Libido, Cold Intolorance, Deepening of Voice, Excessive Sweating, Fatigue, Flushing, Heat Intolorance, Increase in Ring/Shoe/Hat Size, Palpitations, Polydipsia, Polyphagia, Polyuria, Other - Hematologic/Lymphatic Hematologic: absent: As Per HPI, Easy Bleeding, Easy Bruising, Lymphadenopathy, Other Past Patient History - Infectious Disease Hx of Infectious Diseases: None - Past Medical History & Family History Past Medical History?: Yes - Past Social History Smoking Status: Former Smoker - CARDIAC Hx Cardiac Disorders: Yes (CAD, ARDIAC ARRHYTHMIA) Hx Congestive Heart Failure: Yes Hx Hypercholesterolemia: Yes Hx Hypertension: Yes - PULMONARY Hx Chronic Obstructive Pulmonary Disease (COPD): Yes - NEUROLOGICAL HX Cerebrovascular Accident: Yes - HEENT Hx HEENT Problems: No - RENAL Hx Chronic Kidney Disease: No - ENDOCRINE/METABOLIC Hx Diabetes Mellitus Type 2: Yes - INTEGUMENTARY Hx Dermatological Problems: No Other/Comment: abdominal area with surgical scars - MUSCULOSKELETAL/RHEUMATOLOGICAL Hx Arthritis: Yes - GASTROINTESTINAL Hx Gastritis: Yes - PSYCHIATRIC Hx Depression: Yes (denies) Hx Substance Use: Yes (40 years ago) - SURGICAL HISTORY Hx Coronary Artery Bypass Graft: Yes (BENDER to LAD, SVG to OM1,OM2, SVG to Diag, SVG to PDA. AVR/MVR (bioprosth)) Hx Coronary Stent: Yes (x9) - ANESTHESIA Hx Anesthesia: Yes Hx Anesthesia Reactions: No Hx Malignant Hyperthermia: No Meds Allergies/Adverse Reactions: Allergies Allergy/AdvReac Type Severity Reaction Status Date / Time iodine Allergy Intermediate SHORTNESS Verified 08/24/17 07:35 OF BREATH shellfish derived Allergy Intermediate ANGIOEDEMA Verified 08/24/17 07:35 milk Allergy Mild SHORTNESS Verified 08/24/17 07:35 OF BREATH - Medications Medications: Current Medications Acetaminophen (Tylenol 325mg Tab) 650 mg PO Q6 PRN PRN Reason: Headache Last Admin: 11/25/17 20:26 Dose: 650 mg Albuterol/Ipratropium (Duoneb 3 Mg/0.5 Mg (3 Ml) Ud) 3 ml INH RQ6 PRN PRN Reason: Shortness of Breath Last Admin: 11/26/17 02:07 Dose: 3 ml Aspirin (Ecotrin) 81 mg PO DAILY [facility] Last Admin: 11/26/17 12:01 Dose: 81 mg Carvedilol (Coreg) 12.5 mg PO BID [facility] Last Admin: 11/26/17 17:31 Dose: 12.5 mg Enoxaparin Sodium (Lovenox) 40 mg SC DAILY [facility] Last Admin: 11/26/17 12:02 Dose: 40 mg Furosemide (Lasix) 40 mg PO DAILY [facility] Last Admin: 11/26/17 12:01 Dose: 40 mg Gabapentin (Neurontin) 400 mg PO TID [facility] Last Admin: 11/26/17 17:28 Dose: 400 mg Glimepiride (Amaryl) 4 mg PO ACBD [facility] Last Admin: 11/26/17 17:28 Dose: 4 mg Insulin Aspart (Novolog) 14 unit SC AC [facility] Last Admin: 11/26/17 17:27 Dose: 14 unit Insulin Glargine (Lantus) 30 unit SC [facility] Last Admin: 11/25/17 22:05 Dose: 30 units Rosuvastatin Calcium (Crestor) 10 mg PO [facility] Last Admin: 11/25/17 22:05 Dose: 10 mg Ticagrelor (Brilinta) 90 mg PO BID [facility] Last Admin: 11/26/17 17:28 Dose: 90 mg Physical Exam - Constitutional Appears: Non-toxic - Head Exam Head Exam: NORMAL INSPECTION - Eye Exam Eye Exam: Normal appearance - ENT Exam ENT Exam: Mucous Membranes Moist - Neck Exam Neck exam: Positive for: Full Rom - Respiratory Exam Respiratory Exam: NORMAL BREATHING PATTERN - Cardiovascular Exam Cardiovascular Exam: REGULAR RHYTHM - GI/Abdominal Exam GI & Abdominal Exam: Normal Bowel Sounds - Rectal Exam Rectal Exam: Deferred - Extremities Exam Extremities exam: Positive for: pedal edema - Back Exam Back exam: NORMAL INSPECTION - Neurological Exam Neurological exam: Alert, Oriented x3 - Psychiatric Exam Psychiatric exam: Normal Affect - Skin Skin Exam: Normal Color Results - Vital Signs Recent Vital Signs: Last Vital Signs Temp 97.9 F 11/26/17 15:00 Pulse 60 11/26/17 15:00 Resp 20 11/26/17 15:00 BP 142/78 11/26/17 17:31 Pulse Ox 96 11/26/17 15:00 - Labs Result Diagrams: 11/24/17 19:49 11/24/17 19:49 Labs: Laboratory Results - last 24 hr 11/25/17 11/26/17 11/26/17 20:56 06:21 12:26 POC Glucose (mg/dL) 157 H 189 H 134 H 11/26/17 16:23 POC Glucose (mg/dL) 224 H - EKG Data EKG Interpreted by: Myself EKG shows normal: Sinus rhythm Assessment & Plan (1) Acute encephalopathy Assessment and Plan: neuro following. will require work up for siezure. carotid ultrasound pending Status: Acute Priority: High (2) CAD (coronary artery disease) of artery bypass graft Assessment and Plan: conitnue antiplatelet therapy Status: Acute (3) Hypertension Assessment and Plan: blood pressure control. Status: Acute
--- NOTE | 2017-11-26 19:58 | CP.PCM.PN ---
Subjective - Date & Time of Evaluation Date of Evaluation: 11/26/17 Time of Evaluation: 19:58 Objective - Vital Signs/Intake and Output Vital Signs (last 24 hours): Temp Pulse Resp BP Pulse Ox 97.9 F 60 20 142/78 96 11/26/17 15:00 11/26/17 15:00 11/26/17 15:00 11/26/17 17:31 11/26/17 15:00 Intake and Output: 11/26/17 11/27/17 18:59 06:59 Intake Total 300 Balance 300 - Medications Medications: Current Medications Acetaminophen (Tylenol 325mg Tab) 650 mg PO Q6 PRN PRN Reason: Headache Last Admin: 11/25/17 20:26 Dose: 650 mg Albuterol/Ipratropium (Duoneb 3 Mg/0.5 Mg (3 Ml) Ud) 3 ml INH RQ6 PRN PRN Reason: Shortness of Breath Last Admin: 11/26/17 02:07 Dose: 3 ml Aspirin (Ecotrin) 81 mg PO DAILY [facility] Last Admin: 11/26/17 12:01 Dose: 81 mg Carvedilol (Coreg) 12.5 mg PO BID [facility] Last Admin: 11/26/17 17:31 Dose: 12.5 mg Enoxaparin Sodium (Lovenox) 40 mg SC DAILY [facility] Last Admin: 11/26/17 12:02 Dose: 40 mg Furosemide (Lasix) 40 mg PO DAILY [facility] Last Admin: 11/26/17 12:01 Dose: 40 mg Gabapentin (Neurontin) 400 mg PO TID [facility] Last Admin: 11/26/17 17:28 Dose: 400 mg Glimepiride (Amaryl) 4 mg PO ACBD [facility] Last Admin: 11/26/17 17:28 Dose: 4 mg Insulin Aspart (Novolog) 14 unit SC AC [facility] Last Admin: 11/26/17 17:27 Dose: 14 unit Insulin Glargine (Lantus) 30 unit SC [facility] Last Admin: 11/25/17 22:05 Dose: 30 units Rosuvastatin Calcium (Crestor) 10 mg PO HS [facility] Last Admin: 11/25/17 22:05 Dose: 10 mg Ticagrelor (Brilinta) 90 mg PO BID [facility] Last Admin: 11/26/17 17:28 Dose: 90 mg - Labs Labs: 11/24/17 19:49 01/20/18 19:49
--- NOTE | 2017-11-26 22:48 | CT ---
EXAM: CT Cervical Spine Without Intravenous Contrast EXAM DATE/TIME: 11/26/2017 3:58 PM CLINICAL HISTORY: 67 years old, male; Pain; Neck pain TECHNIQUE: Axial computed tomography images of the cervical spine without intravenous contrast. All CT scans at this facility use one or more dose reduction techniques, viz.: automated exposure control; ma/kV adjustment per patient size (including targeted exams where dose is matched to indication; i.e. head); or iterative reconstruction technique. Coronal and sagittal reformatted images were created and reviewed. COMPARISON: There are no prior studies for comparison. FINDINGS: Vertebrae: Motion artifact degrades image quality.There is reversal of the cervical lordosis. There is no prevertebral soft tissue swelling. There are no fractures. There is multilevel degenerative change. There is disc space narrowing at multiple levels greatest C6/C7. There are subchondral cysts and erosions greatest C4 and C5. There is narrowing of facet joints. Facet joints align anatomically. There are degenerative osteophytes greatest C6-C7. There is bony encroachment on the C6/C7 neural foramina. Spinous processes align in the expected fashion. Bone mineralization is normal. Discs/spinal canal/neural foramina: See above. Soft tissues: See above. Dental: There is dental disease. Lung apices: Unremarkable IMPRESSION: Multilevel degenerative change; dental disease
[2017-11-26] MEDS: (Lantus) Insulin Glargine, Recombinant SC SCH (22:51)
--- NOTE | 2017-11-26 23:32 | CARD ---
APPROVED REPORT EKG Measurement Heart [id number] [id number] <Conclusion> Normal sinus rhythm Nonspecific intraventricular block Abnormal ECG
[2017-11-27] MEDS: (Novolog) Insulin Aspart, Recombinant 100 u/ml 10 ml vial SC SCH ×4 (08:43→21:24)
[2017-11-27] MEDS: Enoxaparin 40 mg Syringe SC SCH (09:49)
--- NOTE | 2017-11-27 10:39 | CP.PCM.PN ---
Subjective - Date & Time of Evaluation Date of Evaluation: 11/27/17 Time of Evaluation: 09:45 - Subjective Subjective: patient feels well. no chest pain or dyspnea. Objective - Vital Signs/Intake and Output Vital Signs (last 24 hours): Temp Pulse Resp BP Pulse Ox 97.3 F L 64 20 158/100 H 95 11/27/17 08:32 11/27/17 08:32 11/27/17 08:32 11/27/17 09:48 11/27/17 08:32 Intake and Output: 11/27/17 11/27/17 06:59 18:59 Intake Total 600 Balance 600 - Medications Medications: Current Medications Acetaminophen (Tylenol 325mg Tab) 650 mg PO Q6 PRN PRN Reason: Headache Last Admin: 11/25/17 20:26 Dose: 650 mg Albuterol/Ipratropium (Duoneb 3 Mg/0.5 Mg (3 Ml) Ud) 3 ml INH RQ6 PRN PRN Reason: Shortness of Breath Last Admin: 11/26/17 02:07 Dose: 3 ml Aspirin (Ecotrin) 81 mg PO DAILY [facility] Last Admin: 11/27/17 09:48 Dose: 81 mg Carvedilol (Coreg) 12.5 mg PO BID [facility] Last Admin: 11/27/17 09:48 Dose: 12.5 mg Enoxaparin Sodium (Lovenox) 40 mg SC DAILY [facility] Last Admin: 11/27/17 09:49 Dose: 40 mg Furosemide (Lasix) 40 mg PO DAILY [facility] Last Admin: 11/27/17 09:48 Dose: 40 mg Gabapentin (Neurontin) 400 mg PO TID [facility] Last Admin: 11/27/17 09:48 Dose: 400 mg Glimepiride (Amaryl) 4 mg PO ACBD [facility] Last Admin: 11/27/17 07:54 Dose: 4 mg Insulin Aspart (Novolog) 14 unit SC AC [facility] Last Admin: 11/27/17 08:43 Dose: 14 unit Insulin Glargine (Lantus) 30 unit SC [facility] Last Admin: 11/26/17 22:51 Dose: 30 units Rosuvastatin Calcium (Crestor) 10 mg PO HS [facility] Last Admin: 11/26/17 22:51 Dose: 10 mg Ticagrelor (Brilinta) 90 mg PO BID [facility] Last Admin: 11/27/17 09:48 Dose: 90 mg - Labs Labs: 11/24/17 19:49 11/24/17 19:49 - Constitutional Appears: Non-toxic - Head Exam Head Exam: NORMAL INSPECTION - Eye Exam Eye Exam: Normal appearance - ENT Exam ENT Exam: Mucous Membranes Moist - Neck Exam Neck Exam: Full ROM - Respiratory Exam Respiratory Exam: NORMAL BREATHING PATTERN - Cardiovascular Exam Cardiovascular Exam: REGULAR RHYTHM - GI/Abdominal Exam GI & Abdominal Exam: Normal Bowel Sounds - Rectal Exam Rectal Exam: Deferred - Extremities Exam Extremities Exam: absent: Pedal Edema - Back Exam Back Exam: NORMAL INSPECTION - Neurological Exam Neurological Exam: Alert - Psychiatric Exam Psychiatric exam: Normal Affect - Skin Skin Exam: Normal Color Assessment and Plan (1) Acute encephalopathy Assessment & Plan: appears to be resolving. neuro follow up Status: Acute (2) CAD (coronary artery disease) of artery bypass graft Assessment & Plan: antiplatelet therapy Status: Acute (3) Hypertension Assessment & Plan: blood pressure control Status: Acute
--- NOTE | 2017-11-27 11:03 | VASCLAB ---
PROCEDURE: HISTORY: syncope COMPARISON: None available. TECHNIQUE: Grayscale and duplex Doppler evaluation of the cervical carotid and vertebral arteries were performed. The common carotid, carotid bifurcations and cervical Internal Carotid Artery (ICA) and proximal External Carotid Artery (ECA) were evaluated. The vertebral arteries were evaluated for gross patency and flow direction. Report prepared by Jose Shabazz, BS, RVT FINDINGS: RIGHT CAROTID ARTERIES: 1. Common Carotid Artery: No significant focal plaque formation of the right common carotid artery. Maximum Peak Systolic velocity: 73 cm/sec: End-diastolic velocity 15 cm/sec. 2. Carotid Bifurcation: plaque formation. Maximum Peak Systolic velocity: 60 cm/sec: End-diastolic velocity 11 cm/sec. 3. Internal Carotid Artery: Plaque description: 3.1. Proximal Segment: Peak systolic velocity 79 cm/sec: End-diastolic velocity 29 cm/sec - % stenosis 0-15% 3.2. Middle Segment: Peak systolic velocity 82 cm/sec: End-diastolic velocity 25 cm/sec - % stenosis 0-15% 3.3. Distal Segment: Peak systolic velocity 38 cm/sec: End-diastolic velocity 10 cm/sec - % stenosis 0-15% 4. External Carotid Artery: No significant focal plaque formation. Peak systolic velocity 123 cm/sec 5. ICA/CCA Ratio: 1.1 LEFT CAROTID ARTERIES: 1. Common Carotid Artery: No significant focal plaque formation of the left common carotid artery. Maximum Peak Systolic velocity: 67 cm/sec: End-diastolic velocity 19 cm/sec. 2. Carotid Bifurcation: Calcific plaque formation. Maximum Peak Systolic velocity: 69 cm/sec: End-diastolic velocity 16 cm/sec. 3. Internal Carotid Artery: Mild plaque formation of the left proximal proximal ICA which does not results in a hemodynamically significant stenosis. Plaque description: 3.1. Proximal Segment: Peak systolic velocity 58 cm/sec: End-diastolic velocity 16 cm/sec - % stenosis 0-15% 3.2. Middle Segment: Peak systolic velocity 53 cm/sec: End-diastolic velocity 14 cm/sec - % stenosis 0-15% 3.3. Distal Segment: Peak systolic velocity 48 cm/sec: End-diastolic velocity 14 cm/sec - % stenosis 0-15% 4. External Carotid Artery: No significant focal plaque formation. Peak systolic velocity 206 cm/sec 5. ICA/CCA Ratio: 1.0 VERTEBRAL ARTERIES: 1. Right Vertebral Artery: The right vertebral artery flow direction is antegrade. 2. Left Vertebral Artery: The left vertebral artery flow direction is antegrade. OTHER FINDINGS: 1. Right Brachial Blood pressure: 148 mmHg. 2. Left Brachial Blood pressure: 144 mmHg. IMPRESSION: RIGHT: Duplex scan does not suggest hemodynamically significant stenosis of the right extracranial carotid arteries. LEFT: Duplex scan does not suggest hemodynamically significant stenosis of the left extracranial carotid arteries.
--- NOTE | 2017-11-27 16:35 | CP.PCM.PN ---
Subjective - Date & Time of Evaluation Date of Evaluation: 11/27/17 Time of Evaluation: 09:40 - Subjective Subjective: clinically same Objective - Vital Signs/Intake and Output Vital Signs (last 24 hours): Temp Pulse Resp BP Pulse Ox 97.3 F L 64 20 158/100 H 95 11/27/17 08:32 11/27/17 08:32 11/27/17 08:32 11/27/17 09:48 11/27/17 08:32 Intake and Output: 11/27/17 11/27/17 06:59 18:59 Intake Total 600 Balance 600 - Medications Medications: Current Medications Acetaminophen (Tylenol 325mg Tab) 650 mg PO Q6 PRN PRN Reason: Headache Last Admin: 11/25/17 20:26 Dose: 650 mg Albuterol/Ipratropium (Duoneb 3 Mg/0.5 Mg (3 Ml) Ud) 3 ml INH RQ6 PRN PRN Reason: Shortness of Breath Last Admin: 11/26/17 02:07 Dose: 3 ml Aspirin (Ecotrin) 81 mg PO DAILY [facility] Last Admin: 11/27/17 09:48 Dose: 81 mg Carvedilol (Coreg) 12.5 mg PO BID [facility] Last Admin: 11/27/17 09:48 Dose: 12.5 mg Enoxaparin Sodium (Lovenox) 40 mg SC DAILY [facility] Last Admin: 11/27/17 09:49 Dose: 40 mg Furosemide (Lasix) 40 mg PO DAILY [facility] Last Admin: 11/27/17 09:48 Dose: 40 mg Gabapentin (Neurontin) 400 mg PO TID [facility] Last Admin: 11/27/17 13:55 Dose: 400 mg Glimepiride (Amaryl) 4 mg PO ACBD [facility] Last Admin: 11/27/17 07:54 Dose: 4 mg Insulin Aspart (Novolog) 14 unit SC AC [facility] Last Admin: 11/27/17 08:43 Dose: 14 unit Insulin Aspart (Novolog) 0 unit SC ACHS [facility] PRN Reason: Protocol Last Admin: 11/27/17 12:41 Dose: 2 unit Insulin Glargine (Lantus) 30 unit SC HS [facility] Last Admin: 11/26/17 22:51 Dose: 30 units Rosuvastatin Calcium (Crestor) 10 mg PO HS [facility] Last Admin: 01/22/18 22:51 Dose: 10 mg Ticagrelor (Brilinta) 90 mg PO BID [facility] Last Admin: 11/27/17 09:48 Dose: 90 mg - Labs Labs: 11/24/17 19:49 11/24/17 19:49 - Constitutional Appears: Well - Head Exam Head Exam: ATRAUMATIC, NORMAL INSPECTION, NORMOCEPHALIC - Eye Exam Eye Exam: EOMI, Normal appearance, PERRL Pupil Exam: NORMAL ACCOMODATION, PERRL - ENT Exam ENT Exam: Mucous Membranes Moist, Normal Exam - Neck Exam Neck Exam: Full ROM, Normal Inspection. absent: Lymphadenopathy - Respiratory Exam Respiratory Exam: Decreased Breath Sounds - Cardiovascular Exam Cardiovascular Exam: REGULAR RHYTHM, +S1, +S2 - GI/Abdominal Exam GI & Abdominal Exam: Soft, Diminished Bowel Sounds - Rectal Exam Rectal Exam: Deferred
--- NOTE | 2017-11-27 16:53 | CP.PCM.PN ---
Subjective - Date & Time of Evaluation Date of Evaluation: 11/27/17 Time of Evaluation: 13:11 - Subjective Subjective: PGY 2 Medicine Note- Dr. Cory Lux's service Patient seen and examined in no apparent acute distress. Patient states that he has been feeling increasingly stressed over the past few months. He states that his significant other has been having a hard time at work. She has been bringing some of these work concerns home which has been stressing the patient out. Patient states that he had not had much of an appetite just prior to his syncopal event. Patient states that he typically has trouble ambulating such that he relies on an assisted device to ambulate. Patient currently denies subjective fevers or chills, headaches, nausea, vomiting, diarrhea, chest pain or shortness of breath at this time. Objective - Vital Signs/Intake and Output Vital Signs (last 24 hours): Temp Pulse Resp BP Pulse Ox 97.3 F L 64 20 158/100 H 95 11/27/17 08:32 11/27/17 08:32 11/27/17 08:32 11/27/17 09:48 11/27/17 08:32 Intake and Output: 11/27/17 11/27/17 06:59 18:59 Intake Total 600 Balance 600 - Medications Medications: Current Medications Acetaminophen (Tylenol 325mg Tab) 650 mg PO Q6 PRN PRN Reason: Headache Last Admin: 11/25/17 20:26 Dose: 650 mg Albuterol/Ipratropium (Duoneb 3 Mg/0.5 Mg (3 Ml) Ud) 3 ml INH RQ6 PRN PRN Reason: Shortness of Breath Last Admin: 11/26/17 02:07 Dose: 3 ml Aspirin (Ecotrin) 81 mg PO DAILY [facility] Last Admin: 11/27/17 09:48 Dose: 81 mg Carvedilol (Coreg) 12.5 mg PO BID [facility] Last Admin: 11/27/17 09:48 Dose: 12.5 mg Enoxaparin Sodium (Lovenox) 40 mg SC DAILY [facility] Last Admin: 11/27/17 09:49 Dose: 40 mg Furosemide (Lasix) 40 mg PO DAILY [facility] Last Admin: 11/27/17 09:48 Dose: 40 mg Gabapentin (Neurontin) 400 mg PO TID [facility] Last Admin: 11/27/17 13:55 Dose: 400 mg Glimepiride (Amaryl) 4 mg PO ACBD [facility] Last Admin: 11/27/17 07:54 Dose: 4 mg Insulin Aspart (Novolog) 14 unit SC AC [facility] Last Admin: 11/27/17 08:43 Dose: 14 unit Insulin Aspart (Novolog) 0 unit SC ACHS [facility] PRN Reason: Protocol Last Admin: 11/27/17 12:41 Dose: 2 unit Insulin Glargine (Lantus) 30 unit SC [facility] Last Admin: 11/26/17 22:51 Dose: 30 units Rosuvastatin Calcium (Crestor) 10 mg PO HS [facility] Last Admin: 11/26/17 22:51 Dose: 10 mg Ticagrelor (Brilinta) 90 mg PO BID [facility] Last Admin: 11/27/17 09:48 Dose: 90 mg - Labs Labs: 11/24/17 19:49 11/24/17 19:49 - Constitutional Appears: Non-toxic, No Acute Distress - Head Exam Head Exam: ATRAUMATIC - Eye Exam Eye Exam: Normal appearance - ENT Exam ENT Exam: Mucous Membranes Moist - Neck Exam Neck Exam: Full ROM - Respiratory Exam Respiratory Exam: NORMAL BREATHING PATTERN - Cardiovascular Exam Cardiovascular Exam: +S1, +S2 - GI/Abdominal Exam GI & Abdominal Exam: Soft, Normal Bowel Sounds - Extremities Exam Extremities Exam: Full ROM - Back Exam Back Exam: Full ROM - Neurological Exam Neurological Exam: Alert, Awake Additional comments: sensation intact - Psychiatric Exam Psychiatric exam: Normal Affect, Normal Mood - Skin Skin Exam: Dry, Normal Color, Warm Assessment and Plan (1) Change in mental status Assessment & Plan: Patient's mentation waxes and wanes at times. Neuro on board. F/U reccs F/U EEG studies to rule out seizure-type events Carotid studies negative Will need to figure out if patient is having hypoglycemic events during these syncopal spells since he admits to decrease in appetite. Patient will need to be counseled on adjusting insulin/ anti-hyperglycemic administration at this time. Status: Acute (2) CAD (coronary artery disease) of artery bypass graft Assessment & Plan: Follows with Dr. Montanez . F/U recommendations. ASA, Coreg, Crestor, Brillinta on board Status: Chronic (3) Diabetes Assessment & Plan: Hold home meds at this time Hgb A1c 15.8 (11/07/17) Accuchecks ISS Patient needs close follow up outpatient Status: Chronic (4) Hypertension Assessment & Plan: Carvedilol at this time Monitor HR Status: Chronic (5) Prophylactic measure Assessment & Plan: Lovenox SCDs Discussed with attending. All management and planning per Dr. Cory Lux. Status: Acute
[2017-11-28 07:28] LABS: BASO # 0.1 K/uL (0.0-0.2); BASO % 1.4 % (0.0-2.0); EOS # 0.4 K/uL (0.0-0.7); EOS % 4.1 % (0.0-4.0); HEMOGLOBIN 12.4 g/dL (12.0-18.0); LYMPH # 1.2 K/uL (1.0-4.3); LYMPH % 13.4 % (20.0-40.0); MEAN CELL VOLUME 79.1 fL (80.0-94.0); MEAN CORPUSCULAR HEMOGLOBIN 24.8 pg (27.0-31.0); MEAN CORPUSCULAR HGB CONC 31.3 g/dL (33.0-37.0); MEAN PLATELET VOLUME 9.7 fL (7.2-11.7); MONO # 0.7 K/uL (0.0-0.8); MONO % 7.5 % (0.0-10.0); NEUT # 6.8 K/uL (1.8-7.0); NEUT % 73.6 % (50.0-75.0); RBC 5.01 Mil/uL (4.40-5.90); RED CELL DISTRIBUTION WIDTH 18.3 % (11.5-14.5); WHITE BLOOD COUNT 9.2 K/uL (4.8-10.8)
[2017-11-28 07:55] LABS: ALB/GLOB RATIO 1.2 (1.0-2.1); ALBUMIN 3.9 g/dL (3.5-5.0); ALT/SGPT 41 U/L (21-72); AST/SGOT 47 U/L (17-59); BLOOD UREA NITROGEN 25 mg/dL (9-20); CALCIUM 8.5 mg/dl (8.6-10.4); GFR AFRICAN-AMERICAN > 60; GFR NON-AFRICAN AMERICAN > 60; MAGNESIUM 1.7 mg/dL (1.6-2.3)
[2017-11-28] MEDS: (Novolog) Insulin Aspart, Recombinant 100 u/ml 10 ml vial SC SCH ×3 (08:41→17:56)
[2017-11-28] MEDS: Enoxaparin 40 mg Syringe SC SCH (09:10)
--- NOTE | 2017-11-28 11:10 | CP.PCM.PN ---
Subjective - Date & Time of Evaluation Date of Evaluation: 11/28/17 Time of Evaluation: 11:02 - Subjective Subjective: PGY2 progress note for Dr. Lux Pt seen and examined at bedside. No acute events overnight. Pt is A&O x3. Patient ambulating without difficulty. Currently resting in chair. Denies having any CP, SOB, abd pain, N/V/D/C. 12 point ROS negative except for above mentioned. Objective - Vital Signs/Intake and Output Vital Signs (last 24 hours): Temp Pulse Resp BP Pulse Ox 98.8 F 60 18 174/87 H 96 11/28/17 08:33 11/28/17 08:33 11/28/17 08:33 11/28/17 09:10 11/28/17 08:33 Intake and Output: 11/28/17 11/28/17 06:59 18:59 Intake Total 240 Balance 240 - Medications Medications: Current Medications Acetaminophen (Tylenol 325mg Tab) 650 mg PO Q6 PRN PRN Reason: Headache Last Admin: 11/25/17 20:26 Dose: 650 mg Albuterol/Ipratropium (Duoneb 3 Mg/0.5 Mg (3 Ml) Ud) 3 ml INH RQ6 PRN PRN Reason: Shortness of Breath Last Admin: 11/26/17 02:07 Dose: 3 ml Aspirin (Ecotrin) 81 mg PO DAILY [facility] Last Admin: 11/28/17 09:10 Dose: 81 mg Carvedilol (Coreg) 12.5 mg PO BID [facility] Last Admin: 11/28/17 09:10 Dose: 12.5 mg Enoxaparin Sodium (Lovenox) 40 mg SC DAILY [facility] Last Admin: 11/28/17 09:10 Dose: 40 mg Furosemide (Lasix) 40 mg PO DAILY [facility] Last Admin: 11/28/17 09:10 Dose: 40 mg Gabapentin (Neurontin) 400 mg PO TID [facility] Last Admin: 11/28/17 09:10 Dose: 400 mg Glimepiride (Amaryl) 4 mg PO ACBD [facility] Last Admin: 11/27/17 07:54 Dose: 4 mg Insulin Aspart (Novolog) 14 unit SC AC [facility] Last Admin: 11/27/17 08:43 Dose: 14 unit Insulin Aspart (Novolog) 0 unit SC ACHS [facility] PRN Reason: Protocol Last Admin: 11/28/17 08:41 Dose: 2 unit Insulin Glargine (Lantus) 30 unit SC [facility] Last Admin: 11/26/17 22:51 Dose: 30 units Rosuvastatin Calcium (Crestor) 10 mg PO [facility] Last Admin: 11/27/17 21:24 Dose: 10 mg Ticagrelor (Brilinta) 90 mg PO BID [facility] Last Admin: 11/28/17 09:10 Dose: 90 mg - Labs Labs: 11/28/17 07:18 11/28/17 07:18 - Constitutional Appears: Non-toxic, No Acute Distress - Head Exam Head Exam: ATRAUMATIC - ENT Exam ENT Exam: Mucous Membranes Moist - Respiratory Exam Respiratory Exam: Clear to Ausculation Bilateral. absent: Accessory Muscle Use , Rhonchi, Wheezes, Respiratory Distress - Cardiovascular Exam Cardiovascular Exam: REGULAR RHYTHM, +S1, +S2. absent: Gallop, Rubs, Murmur - GI/Abdominal Exam GI & Abdominal Exam: Soft, Normal Bowel Sounds. absent: Distended, Firm, Guarding, Rigid, Tenderness, Organomegaly - Extremities Exam Extremities Exam: Pedal Edema (2+ B/L ). absent: Tenderness - Neurological Exam Neurological Exam: Alert, Awake, Oriented x3 - Psychiatric Exam Psychiatric exam: Normal Affect, Normal Mood - Skin Skin Exam: Dry, Intact, Normal Color, Warm Assessment and Plan - Assessment and Plan (Free Text) Assessment: (1) Change in mental status Patient's mentation waxes and wanes at times. Carotid US negative CT of head on admission negative Neuro on board. Spoke with Dr. Neil who recommends getting repeat CT of head c/o contrast (as pt has iodine allergy) EEG results pending Will need to figure out if patient is having hypoglycemic events during these syncopal spells since he admits to decrease in appetite. Patient will need to be counseled on adjusting insulin/ anti-hyperglycemic administration at this time. Diabetic nurse educator consulted PT/OT consulted for weakness (2) CAD (coronary artery disease) of artery bypass graft Follows with Dr. Montanez . F/U recommendations. ASA, Coreg, Crestor, Brillinta on board (3) Diabetes Hold home meds at this time Hgb A1c 15.8 (11/07/17) Accuchecks ISS Patient needs close follow up outpatient Diabetic nurse educator consulted (4) Hypertension Carvedilol at this time Monitor HR Will add losartan 25 mg PO as BP has been consistently elevated (5) Prophylactic measure Lovenox SCDs Discussed with attending. All management and planning per Dr. Cory Lux. Patient safe to discharge home per Dr. Lux. Patient is to follow up with PMD upon discharge Patient is to continue all home medications as prescribed. Patient will be discharged with the following new medication: Losartan 25 mg po qd #30 tabs Patient will also be given script for home with services.
--- NOTE | 2017-11-28 14:26 | CP.PCM.PN ---
Subjective - Date & Time of Evaluation Date of Evaluation: 11/28/17 Time of Evaluation: 14:22 - Subjective Subjective: Mr. Naqvi was seen and examined at the bedside. He is alert with episode of forgetfulness. Today, he is more oriented and able to follow simple commands. He was able to recall that he had EEG couple days ago. He is able to ambulate within his room in steady gait.There was no untoward events overnight. Objective - Vital Signs/Intake and Output Vital Signs (last 24 hours): Temp Pulse Resp BP Pulse Ox 98.8 F 60 18 174/87 H 96 11/28/17 08:33 11/28/17 08:33 11/28/17 08:33 11/28/17 09:10 11/28/17 08:33 Intake and Output: 11/28/17 11/28/17 06:59 18:59 Intake Total 240 Balance 240 - Medications Medications: Current Medications Acetaminophen (Tylenol 325mg Tab) 650 mg PO Q6 PRN PRN Reason: Headache Last Admin: 11/25/17 20:26 Dose: 650 mg Albuterol/Ipratropium (Duoneb 3 Mg/0.5 Mg (3 Ml) Ud) 3 ml INH RQ6 PRN PRN Reason: Shortness of Breath Last Admin: 11/26/17 02:07 Dose: 3 ml Aspirin (Ecotrin) 81 mg PO DAILY [facility] Last Admin: 11/28/17 09:10 Dose: 81 mg Carvedilol (Coreg) 12.5 mg PO BID [facility] Last Admin: 11/28/17 09:10 Dose: 12.5 mg Enoxaparin Sodium (Lovenox) 40 mg SC DAILY [facility] Last Admin: 11/28/17 09:10 Dose: 40 mg Furosemide (Lasix) 40 mg PO DAILY [facility] Last Admin: 11/28/17 09:10 Dose: 40 mg Gabapentin (Neurontin) 400 mg PO TID [facility] Last Admin: 11/28/17 13:15 Dose: 400 mg Glimepiride (Amaryl) 4 mg PO ACBD [facility] Last Admin: 11/27/17 07:54 Dose: 4 mg Insulin Aspart (Novolog) 14 unit SC AC [facility] Last Admin: 11/27/17 08:43 Dose: 14 unit Insulin Aspart (Novolog) 0 unit SC ACHS [facility] PRN Reason: Protocol Last Admin: 11/28/17 12:32 Dose: 4 unit Insulin Glargine (Lantus) 30 unit SC HS [facility] Last Admin: 11/26/17 22:51 Dose: 30 units Losartan Potassium (Cozaar) 25 mg PO DAILY [facility] Last Admin: 11/28/17 12:32 Dose: 25 mg Rosuvastatin Calcium (Crestor) 10 mg PO HS [facility] Last Admin: 11/27/17 21:24 Dose: 10 mg Ticagrelor (Brilinta) 90 mg PO BID [facility] Last Admin: 11/28/17 09:10 Dose: 90 mg - Labs Labs: 11/28/17 07:18 11/28/17 07:18 - Constitutional Appears: No Acute Distress - Head Exam Head Exam: NORMAL INSPECTION - Neurological Exam Neurological Exam: Alert, Awake Neuro motor strength exam: Left Upper Extremity: 5, Right Upper Extremity: 5, Left Lower Extremity: 5, Right Lower Extremity: 5 Additional comments: Neurological unchanged from previous examination. Assessment and Plan (1) Acute encephalopathy Assessment & Plan: Case discussed with Dr. Neil, continue all current medical, physical, and occupational therapies. Recommend repeat CT of the head to evaluate possible brain pathology. Carotid ultrasound- does not show any significant stenosis EEG- Pending result Status: Acute
--- NOTE | 2017-11-28 14:51 | CT ---
PROCEDURE: CT HEAD WITHOUT CONTRAST. HISTORY: rule out CVA COMPARISON: Noncontrast head CT performed 11/24/17 TECHNIQUE: Axial computed tomography images were obtained through the head/brain without intravenous contrast. Radiation dose: Total exam DLP = 2096.12 mGy-cm. This CT exam was performed using one or more of the following dose reduction techniques: Automated exposure control, adjustment of the mA and/or kV according to patient size, and/or use of iterative reconstruction technique. FINDINGS: Streak artifact obscures evaluation of the skullbase. HEMORRHAGE: No intracranial hemorrhage. BRAIN: Diffuse atrophy with prominence of the ventricles and sulci noted. No mass effect or edema. Intracranial atherosclerosis. Scattered periventricular and subcortical white matter hypodensities, which are nonspecific, but often seen with chronic microvascular ischemic disease. Please note that MRI with diffusion imaging is more sensitive in the detection of acute ischemic event. VENTRICLES: No hydrocephalus. CALVARIUM: Unremarkable. PARANASAL SINUSES: Unremarkable as visualized. No significant inflammatory changes. MASTOID AIR CELLS: Unremarkable as visualized. No inflammatory changes. OTHER FINDINGS: None. IMPRESSION: Generalized atrophy. Nonspecific white matter changes.
[2017-11-28 16:24] VITALS: RESP 20; TEMP 98
[2017-11-28 16:26] VITALS: PULSE 61
[2017-11-28 18:08] VITALS: BP 127/75
[2017-11-28 18:42] VITALS: O2SAT 93
--- NOTE | 2017-11-29 08:09 | EEG ---
DATE: CLINICAL INDICATION: Syncope. TOTAL TIME: Thirty minutes. TECHNICAL COMMENTS: Electrodes were placed according to the 10/[employer] Electrode System by the mri special procedures technologist. EEG activity was digitally recorded referentially with P1/P2 or A1/A2 electrodes. Digital analysis with the use of spike detection. INTERPRETATION: GENERAL DISCUSSION: There is 9 Hz posterior dominant rhythm which was reactive, symmetric and attenuating to eye opening. Normal drowsiness was captured in bilateral frontal beta, which is normal now. There is no sleep capture. There is no focal slowing. There were no interictal epileptiform discharges noted. There were no subclinical or clinical seizures. This is a normal awake and drowsy EEG. Bneita Neil MD
== END 2017-11-28 18:39 | disposition home or self-care (01) | DRG 71 ==
LOC: C.ER 17:43 → C.9E 20:44 → C.6T 21:16 → OBSVTOIN 11-26 16:00
PROVIDERS: ADMIT Internal Medicine Nephrology; ATTEND Internal Medicine Nephrology
DX: G93.40 Encephalopathy, unspecified (principal); I69.351 Hemiplegia and hemiparesis following cerebral infarction affecting right dominant side; I11.0 Hypertensive heart disease with heart failure; E11.9 Type 2 diabetes mellitus without complications; I25.10 Atherosclerotic heart disease of native coronary artery without angina pectoris; E78.00 Pure hypercholesterolemia, unspecified; J44.9 Chronic obstructive pulmonary disease, unspecified; F32.9 Major depressive disorder, single episode, unspecified; Z95.1 Presence of aortocoronary bypass graft; Z95.0 Presence of cardiac pacemaker; Z87.891 Personal history of nicotine dependence; Z79.4 Long term (current) use of insulin; Z95.2 Presence of prosthetic heart valve

== ENCOUNTER 2018-01-16 18:11 | Inpatient (IN) | payer MEDICARE, MEDICAID ==
[2018-01-16 18:12] VITALS: BMI 32.5
--- NOTE | 2018-01-16 18:40 | C.PDOC ---
History Of Present Illness <Cynthia Shirley - Last Filed: 01/16/18 19:12> <Toshia Hurley - Last Filed: 01/16/18 23:32> 67 y/o male, w/PMhx of diabetes, stents, and surgeries, presents to the ER complaining of light headedness and dizziness. Per , pt awoke around 11 am feeling dizzy and lightheaded. He had sevral episode of diarrhea vs. fecal incontinence. Pt was c/o " funny vision" and he felt like "things were moving. " Patient had an recent episode of diarrhea during the afternoon today but denies having incontinence. he was recently d/c from [facility] where he was admitted for " feeling weak from pneumonia." he had " brain testing at [facility] and 'everything was normal." Pt states that he has been feeling light- headbness and generalized weakness x 1 wk. He is also c/o OLSON and CP x 1 month. He has been having CP since his heart attack 4 months ago. CP is non-exertional and similar to previous episodes of CP. He is c/o bilateral weakness in his legs.Prior hx of leg swelling. Denies fever,n/v. Denies hx of asthma, COPD. Quit smoking 20 yrs ago. Hx of admission in [facility] ER in Nov 2017 for near- syncope episodes. (Cynthia Shirley) History Per: Family History/Exam Limitations: other (poor historian) Onset/Duration Of Symptoms: Days Current Symptoms Are (Timing): Still Present Severity: Moderate <Cynthia Shirley - Last Filed: 01/16/18 19:12> <Toshia Hurley - Last Filed: 01/16/18 23:32> Time Seen by Provider: 01/16/18 18:36 Chief Complaint (Nursing): Weakness/Neurological Deficit Past Medical History Reviewed: Historical Data, Nursing Documentation, Vital Signs - Medical History PMH: Arthritis, Asthma, CAD, Cardia Arrhythmia, CHF, COPD, CVA (affecting right side of body), Depression (denies), Diabetes, Gastritis, HTN, Hypercholesterolemia Denies: Fractures, Chronic Kidney Disease Surgical History: CABG (BENDER to LAD, SVG to OM1,OM2, SVG to Diag, SVG to PDA. AVR/MVR (bioprosth)), Coronary Stent (x9), Pacemaker Family History: States: No Known Family Hx - Social History Hx Tobacco Use: No Hx Alcohol Use: No Hx Substance Use: Yes (40 years ago) - Immunization History Hx Tetanus Toxoid Vaccination: Yes Hx Influenza Vaccination: Yes Hx Pneumococcal Vaccination: Yes <Cynthia Shirley - Last Filed: 01/16/18 19:12> Vital Signs: Last Vital Signs Temp 98 F 01/16/18 19:00 Pulse 61 01/16/18 19:36 Resp 18 01/16/18 19:36 BP 113/80 01/16/18 19:36 Pulse Ox 97 01/16/18 19:36 - [facility] Procedures CORONAR ARTERIOGR-2 CATH (07/19/14) DILATION OF CORONARY ARTERY, ONE SITE, PERCUTANEOUS APPROACH (05/20/16) INSERTION OF INFUSION DEV INTO SUP VENA CAVA, PERC APPROACH (01/19/17) INSPECTION OF LARYNX, ENDO (04/23/16) LEFT HEART CARDIAC CATH (07/19/14) LT HEART ANGIOCARDIOGRAM (07/19/14) MEASURE CARDIAC SAMPL & PRESSURE, BILATERAL, PERC (07/08/17) MEASURE OF CARDIAC SAMPL & PRESSURE, L HEART, PERC APPROACH (05/20/16) PLAIN RADIOGRAPHY OF L INT MAMM GRAFT USING OTH CONTRAST (05/20/16) PLAIN RADIOGRAPHY OF LEFT HEART USING OTHER CONTRAST (05/20/16) PLAIN RADIOGRAPHY OF MULT COR A GRAFT USING OTH CONTRAST (07/08/17) PLAIN RADIOGRAPHY OF MULT COR ART USING OTH CONTRAST (07/08/17) PLAIN RADIOGRAPHY OF RIGHT AND LEFT HEART USING OTH CONTRAST (07/08/17) ULTRASONOGRAPHY OF RIGHT AND LEFT HEART, TRANSESOPHAGEAL (01/19/17) Review Of Systems Review Of Systems: ROS cannot be obtained secondary to pt's inabilty to answer questions. <Cynthia Shirley - Last Filed: 01/16/18 19:12> Physical Exam - Physical Exam Appears: Other (mild distress) Skin: Normal Color, Warm, Dry Head: Atraumatic, Normacephalic Eye(s): bilateral: Normal Inspection Respiratory: Normal Breath Sounds, No Accessory Muscle Use, No Rales, No Rhonchi , No Wheezing, Other (90% on RA, speaking in full sentences) Extremity: Pedal Edema (+ 1 b/l pedal edema) Neurological/Psych: Other (no focal deficits) <Cynthia Shirley - Last Filed: 01/16/18 19:12> ED Course And Treatment - Laboratory Results Result Diagrams: 01/16/18 18:47 ECG Rhythm: Sinus Rhythm ECG Interpretation: No Changes From Prior (12/02/17) Rate From EC <Cynthia Shirley - Last Filed: 01/16/18 19:12> - Laboratory Results Result Diagrams: 01/16/18 18:47 01/16/18 18:47 <Toshia Hurley - Last Filed: 01/16/18 23:32> Progress - Data Reviewed Data Reviewed: Lab, Diagnostic imaging, EKG, Old records (Carotid Doppler- - neg, CT-Head - 11/28/17 - neg.) <Cynthia Shirley - Last Filed: 01/16/18 19:12> <Toshia Hurley - Last Filed: 01/16/18 23:32> - Re-Evaluation Re-evaluation Note: 01/16/18 19:10 Case d/c with Dr. Neel Lux. (Cynthia Shilrey) Disposition - Disposition Disposition Time: 19:00 <Cynthia Shirley - Last Filed: 01/16/18 19:12> Discussed With : Alison Lux Comment: accepted the pt onhis service and took over the care at 11:31 PM Doctor Will See Patient In The: Hospital Counseled Patient/Family Regarding: Studies Performed, Diagnosis - POA Present On Arrival: Poor Glycemic Control <Toshia Hurley - Last Filed: 01/16/18 23:32> - Disposition Disposition: HOSPITALIZED Condition: GUARDED Forms: [facility] ([place]) - Clinical Impression Clinical Impression: Chest pain, Altered mental state, Hypoxia - Scribe Statement The provider has reviewed the documentation as recorded by the Scribe <Cynthia Shirley - Last Filed: 01/16/18 19:12> <Toshia Hurley - Last Filed: 01/16/18 23:32> - Scribe Statement Anusha Teixeira (Cynthia Shirley) Provider Attestation: All medical record entries made by the Scribe were at my direction and personally dictated by me. I have reviewed the chart and agree that the record accurately reflects my personal performance of the history, physical exam, medical decision making, and the department course for this patient. I have also personally directed, reviewed, and agree with the discharge instructions and disposition. (Cynthia Shirley) Physician Patient Turnover Patient Signed Over To: Toshia Hurley Handoff Comments: fu labs, ct, dispo <Cynthia Shirley - Last Filed: 01/16/18 19:12> Decision To Admit <Cynthia Shirley - Last Filed: 01/16/18 19:12> - Pt Status Changed To: Hospital Disposition Of: Inpatient - Admit Certification Admit to Inpatient:: After my assessment, the patient will require hospitalization for at least two midnights. This is because of the severity of symptoms shown, intensity of services needed, and/or the medical risk in this patient being treated as an outpatient. - InPatient: Physician Admission Certification: I certify that this patient requires 2 or more midnights of care for the following reason:: After my assessment, the patient will require hospitalization for at least two midnights. This is because of the severity of symptoms shown, intensity of services needed, and/or the medical risk in this patient being treated as an outpatient. - . Bed Request Type: Telemetry Admitting Physician: Alison Lux <Toshia Hurley - Last Filed: 01/16/18 23:32> - . Patient Diagnosis: Chest pain, Altered mental state, Hypoxia
[2018-01-16 19:03] LABS: ABG ALLEN TEST POS; ARTERIAL BLOOD GAS HCO3 23.2 mmol/L (21-28); ARTERIAL BLOOD GAS O2 SAT 97.5 % (95-98); ARTERIAL BLOOD GAS PCO2 41 mm/Hg (35-45); ARTERIAL BLOOD GAS PH 7.36 (7.35-7.45); ARTERIAL BLOOD GAS PO2 79 mm/Hg (80-100); ARTERIAL BLOOD GAS TCO2 24.5 mmol/L (22-28)
[2018-01-16 19:06] LABS: ALB/GLOB RATIO 1.2 (1.0-2.1); ALT/SGPT 41 U/L (21-72); AST/SGOT 68 U/L (17-59); BLOOD UREA NITROGEN 16 mg/dL (9-20); CALCIUM 8.7 mg/dl (8.6-10.4); GFR AFRICAN-AMERICAN > 60; GFR NON-AFRICAN AMERICAN > 60; LIPASE 250 U/L (23-300)
[2018-01-16 19:16] LABS: B-TYPE NATRIURETIC PEPTIDE 1080 pg/mL (0-900)
[2018-01-16 19:17] LABS: INR 1.1; PROTHROMBIN TIME 12.2 SECONDS (9.7-12.2)
[2018-01-16 19:17] LABS: BASO # 0.1 K/uL (0.0-0.2); EOS # 0.3 K/uL (0.0-0.7); MEAN CORPUSCULAR HEMOGLOBIN 24.3 pg (27.0-31.0); MEAN PLATELET VOLUME 9.2 fL (7.2-11.7); WHITE BLOOD COUNT 7.9 K/uL (4.8-10.8)
[2018-01-16 19:57] LABS: BASO % 0.8 % (0.0-2.0); EOS % 3.3 % (0.0-4.0); HEMOGLOBIN 13.1 g/dL (12.0-18.0); LYMPH % 12.2 % (20.0-40.0); MEAN CELL VOLUME 79.2 fL (80.0-94.0); MEAN CORPUSCULAR HGB CONC 30.7 g/dL (33.0-37.0); MONO # 0.6 K/uL (0.0-0.8); MONO % 8.1 % (0.0-10.0); NEUT % 75.6 % (50.0-75.0); NRBC % 0.2 % (0.0-2.0); RBC 5.39 Mil/uL (4.40-5.90); RED CELL DISTRIBUTION WIDTH 17.6 % (11.5-14.5)
--- NOTE | 2018-01-16 20:29 | CT ---
EXAM: CT Head Without Intravenous Contrast EXAM DATE/TIME: Exam ordered 01/16/2018 6:42 PM CLINICAL HISTORY: 67 years old, male; Signs and symptoms; Syncope and collapse; Additional info: Near syncope, AMS TECHNIQUE: Axial computed tomography images of the head/brain without intravenous contrast. All CT scans at this facility use one or more dose reduction techniques, viz.: automated exposure control; ma/kV adjustment per patient size (including targeted exams where dose is matched to indication; i.e. head); or iterative reconstruction technique. Coronal and sagittal reformatted images were created and reviewed. COMPARISON: CT - HEAD W/O CONTRAST 2017-11-28 14:30 FINDINGS: Brain: There is generalized cortical atrophy. There is a 7 mm lacunar infarct within the left thalamus. There is a 1.7 cm area of the low density in the right temporal lobe involving the montoya and white matter unchanged from previous suggesting old infarct. Low density is noted within the periventricular white matter extending into the ulrich radiata and centrum semiovale bilaterally. No hemorrhage. Ventricles: Unremarkable. No ventriculomegaly. Bones/joints: Unremarkable. No acute fracture. Soft tissues: Unremarkable. Sinuses: Unremarkable as visualized. No acute sinusitis. Mastoid air cells: Unremarkable as visualized. No mastoid effusion. IMPRESSION: 1. No acute findings. 2. 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 Lacunar infarct in the left thalamus. 4. Chronic microvascular ischemic change and deep white matter.
--- NOTE | 2018-01-16 22:35 | NM ---
EXAM: NM Lung Perfusion and Ventilation Scan CLINICAL HISTORY: 67 years old, male; Signs and symptoms; Other: Dizziness and lightheaded; Patient HX: Emergency department report sent for better clinical correlation. Chest x-ray done 01/16/18 sent for comparison. ; Additional info: Elevated d dimer TECHNIQUE: Nuclear Medicine ventilation and perfusion images of the lungs were obtained in multiple projections following inhalation of xenon and injection of [id number] MAA. COMPARISON: Chest radiograph dated 01/16/2018 FINDINGS: Ventilation: Unremarkable. No ventilation defects. Perfusion: Unremarkable. No perfusion defects. IMPRESSION: No findings to suggest pulmonary embolism.
[2018-01-17] MEDS: Albuterol-Ipratrop 3 mg / 0.5 (3 ml) UD INH SCH ×4 (03:10→20:05)
[2018-01-17 04:23] LABS: URINE BILIRUBIN NEGATIVE (NEGATIVE); URINE BLOOD NEGATIVE (NEGATIVE); URINE CLARITY Clear (Clear); URINE COLOR Yellow (YELLOW); URINE GLUCOSE (UA) 1+ mg/dL (Normal); URINE LEUKOCYTE ESTERASE NEG Leu/uL (Negative); URINE PROTEIN 2+ mg/dL (NEGATIVE); URINE UROBILINOGEN NORMAL mg/dL (0.2-1.0)
[2018-01-17] MEDS: (Novolog) Insulin Aspart, Recombinant 100 u/ml 10 ml vial SC SCH ×4 (07:35→22:27)
[2018-01-17] MEDS ORDERED: Aminophylline 25 mg/ml Inj ONE (08:29)
--- NOTE | 2018-01-17 08:45 | RAD ---
Chest x-ray single frontal view History: Hypoxia. Comparison: 08/24/2017 Findings: Prominent increased consolidative changes seen within the left mid to lower lung zone concerning for infiltrate and or atelectasis. Small left pleural effusion. Venous congestion. Right hilar prominence. Cardiomegaly. Calcification at the aortic knob. Left-sided pacemaker. Degenerative changes in the spine. Impression: Prominent increased consolidative changes seen within the left mid to lower lung zone concerning for infiltrate and or atelectasis. Small left pleural effusion. Venous congestion. Right hilar prominence. Cardiomegaly.
[2018-01-17 08:58] LABS: CK-MB 8.07 ng/mL (0.0-3.38); TROPONIN I 0.037 ng/mL (0.00-0.120)
--- NOTE | 2018-01-17 09:28 | CP.PCM.CON ---
History of Present Illness - History of Present Illness History of Present Illness: I was asked to see patient by Dr Richard. Patient is a 67 year old male with PMH HTN, CAD s/p CABG and multiple PCIs, AVR , MVR, PPM, CVA who presents withchest pain. He has had previous admissions to [facility] for chest pain, dyspnea, and CVA. He had a recent hospitalization at [facility] for pneumonia, and now is admitted for chest pain. He describes a substernal chest pressure and dsypnea on exertion. Symptoms have been progressive. Cardiac enzymes are negative thus far. Review of Systems - Constitutional Constitutional: absent: As Per HPI, Anorexia, Chills, Daytime Sleepiness, Excessive Sweating, Fatigue, Fever, Frequent Falls, Headache, Increased Appetite , Lethargy, Malaise, Night Sweats, Snoring, Sleep Apnea, Weight Gain, Weight Loss, Weakness, Other - EENT Eyes: absent: As Per HPI, Blind Spots, Blurred Vision, Change in Vision, Decreased Night Vision, Diplopia, Discharge, Dry Eye, Exophthalmos, Floaters, Irritation, Itchy Eyes, Loss of Peripheral Vision, Pain, Photophobia, Requires Corrective Lenses, Sees Flashes, Spots in Vision, Tunnel Vision, Other Visual Disturbances, Loss of Vision, Other Ears: absent: As Per HPI, Decreased Hearing, Ear Discharge, Ear Pain, Tinnitus, Abnormal Hearing, Disequilibrium, Dizziness, Other Nose/Mouth/Throat: absent: As Per HPI, Epistaxis, Nasal Congestion, Nasal Discharge, Nasal Obstruction, Nasal Trauma, Nose Pain, Post Nasal Drip, Sinus Pain, Sinus Pressure, Bleeding Gums, Change in Voice, Dental Pain, Dry Mouth, Dysphagia, Halitosis, Hoarsness, Lip Swelling, Mouth Lesions, Mouth Pain, Odynophagia, Sore Throat, Throat Swelling, Tongue Swelling, Facial Pain, Neck Pain, Neck Mass, Other - Cardiovascular Cardiovascular: absent: As Per HPI, Acrocyanosis, Chest Pain, Chest Pain at Rest , Chest Pain with Activity, Claudication, Diaphoresis, Dyspnea, Dyspnea on Exertion, Edema, Irregular Heart Rhythm, Pain Radiating to Arm/Neck/Jaw, Leg Edema, Leg Ulcers, Lightheadedness, Orthopnea, Palpitations, Paroxysmal Nocturnal Dyspnea, Pedal Edema, Radiating Pain, Rapid Heart Rate, Slow Heart Rate, Syncope, Other - Respiratory Respiratory: absent: As Per HPI, Cough, Dyspnea, Hemoptysis, Dyspnea on Exertion , Wheezing, Snoring, Stridor, Pain on Inspiration, Chest Congestion, Excessive Mucous Production, Change in Mucous Color, Pain with Coughing, Other - Gastrointestinal Gastrointestinal: absent: As Per HPI, Abdominal Pain, Belching, Bloating, Change in Bowel Habits, Change in Stool Character, Coffee Ground Emesis, Constipation, Cramping, Diarrhea, Dyspepsia, Dysphagia, Early Satiety, Excessive Flatus, Fecal Incontinence, Heartburn, Hematemesis, Hematochezia, Loose Stools, Melena, Nausea, Odynophagia, Temesmus, Vomiting, Other - Genitourinary Genitourinary: absent: As Per HPI, Change in Urinary Stream, Difficulty Urinating, Dysuria, Flank Pain, Hematuria, Pyuria, Nocturia, Urinary Incontinence, Urinary Frequency, Urinary Hesitance, Urinary Urgency, Voiding Freq/Small Amts, Freq UTI, Hx Renal/Bladder Calculi, Hx /Renal Surgery, Bladder Distension, Other - Musculoskeletal Musculoskeletal: absent: As Per HPI, Abnormal Gait, Arthralgias, Atrophy, Back Pain, Deformity, Joint Swelling, Limited Range of Motion, Loss of Height, Muscle Cramps, Muscle Weakness, Myalgias, Neck Pain, Numbness, Radiating Pain into Limb, Stiffness, Tingling, Other - Integumentary Integumentary: absent: As Per HPI, Acne, Alopecia, Bleeding Lesions, Change in Hair, Change in Nails, Change in Pigmentation, Changing Lesions, Dry Skin, Erythema, Furuncle, Hirsutism, Lesions, New Lesions, Non-Healing Lesions, Photosensitivity, Pruritus, Rash, Skin Pain, Skin Ulcer, Sores, Striae, Swelling , Unusual Bruising, Wounds, Jaundice, Other - Neurological Neurological: absent: As Per HPI, Abnormal Gait, Abnormal Hearing, Abnormal Movements, Abnormal Speech, Behavioral Changes, Burning Sensations, Confusion, Convulsions, Disequilibrium, Dizziness, Numbness, Focal Weakness, Frequent Falls , Headaches, Lack of Coordination, Loss of Vision, Memory Loss, Paresthesias, Radicular Pain, Restless Legs, Sensory Deficit, Syncope, Tingling, Tremor, Vertigo, Weakness, Other Visual Disturbances, Other - Psychiatric Psychiatric: absent: As Per HPI, Abnormal Sleep Pattern, Anhedonia, Anxiety, Auditory Hallucinations, Behavioral Changes, Change in Appetite, Change in Libido, Confusion, Depression, Difficulty Concentrating, Hallucinations, Homicidal Ideation, Hopelessness, Irritability, Memory Loss, Mood Swings, Panic Attacks, Paranoia, Suicidal Ideation, Visual Hallucinations, Tactile Hallucinations, Other - Endocrine Endocrine: absent: As Per HPI, Change in Body Appearance, Change in Libido, Cold Intolorance, Deepening of Voice, Excessive Sweating, Fatigue, Flushing, Heat Intolorance, Increase in Ring/Shoe/Hat Size, Palpitations, Polydipsia, Polyphagia, Polyuria, Other - Hematologic/Lymphatic Hematologic: absent: As Per HPI, Easy Bleeding, Easy Bruising, Lymphadenopathy, Other Past Patient History - Infectious Disease Hx of Infectious Diseases: None - Past Medical History & Family History Past Medical History?: Yes - Past Social History Smoking Status: Former Smoker - CARDIAC Hx Cardia Arrhythmia: Yes Hx Congestive Heart Failure: Yes Hx Hypercholesterolemia: Yes Hx Hypertension: Yes Hx Pacemaker: Yes - PULMONARY Hx Asthma: Yes Hx Chronic Obstructive Pulmonary Disease (COPD): Yes - HEENT Hx HEENT Problems: No - RENAL Hx Chronic Kidney Disease: No - ENDOCRINE/METABOLIC Hx Endocrine Disorders: Yes Hx Diabetes Mellitus Type 2: Yes - INTEGUMENTARY Hx Dermatological Problems: No Other/Comment: abdominal area with surgical scars - MUSCULOSKELETAL/RHEUMATOLOGICAL Hx Falls: Yes - GASTROINTESTINAL Hx Gastritis: Yes - PSYCHIATRIC Hx Substance Use: No - SURGICAL HISTORY Hx Coronary Artery Bypass Graft: Yes (BENDER to LAD, SVG to OM1,OM2, SVG to Diag, SVG to PDA. AVR/MVR (bioprosth)) Hx Coronary Stent: Yes (x9) - ANESTHESIA Hx Anesthesia: Yes Hx Anesthesia Reactions: No Hx Malignant Hyperthermia: No Meds Allergies/Adverse Reactions: Allergies Allergy/AdvReac Type Severity Reaction Status Date / Time iodine Allergy Intermediate SHORTNESS Verified 01/16/18 18:43 OF BREATH shellfish derived Allergy Intermediate ANGIOEDEMA Verified 01/16/18 18:43 milk Allergy Mild SHORTNESS Verified 01/16/18 18:43 OF BREATH - Medications Medications: Current Medications Albuterol/Ipratropium (Duoneb 3 Mg/0.5 Mg (3 Ml) Ud) 3 ml INH RQ6 FLORES Last Admin: 01/17/18 08:16 Dose: Not Given Aspirin (Ecotrin) 81 mg PO DAILY [facility] Carvedilol (Coreg) 12.5 mg PO BID [facility] Enoxaparin Sodium (Lovenox) 60 mg SC Q12H [facility] Furosemide (Lasix) 20 mg IVP DAILY [facility] Gabapentin (Neurontin) 400 mg PO TID [facility] Glimepiride (Amaryl) 4 mg PO DAILY [facility] Insulin Aspart (Novolog) 0 unit SC ACHS FLORES PRN Reason: Protocol Lisinopril (Zestril) 20 mg PO DAILY [facility] Metformin HCl (Glucophage) 1,000 mg PO BID [facility] Pantoprazole Sodium (Protonix Ec Tab) 40 mg PO DAILY [facility] Rosuvastatin Calcium (Crestor) 10 mg PO HS [facility] Physical Exam - Constitutional Appears: Non-toxic - Head Exam Head Exam: NORMAL INSPECTION - Eye Exam Eye Exam: Normal appearance - ENT Exam ENT Exam: Mucous Membranes Moist - Neck Exam Neck exam: Positive for: Full Rom - Respiratory Exam Respiratory Exam: NORMAL BREATHING PATTERN - Cardiovascular Exam Cardiovascular Exam: REGULAR RHYTHM - GI/Abdominal Exam GI & Abdominal Exam: Normal Bowel Sounds - Rectal Exam Rectal Exam: Deferred - Extremities Exam Extremities exam: Positive for: full ROM - Back Exam Back exam: NORMAL INSPECTION - Neurological Exam Neurological exam: Alert - Psychiatric Exam Psychiatric exam: Normal Affect - Skin Skin Exam: Warm Results - Vital Signs Recent Vital Signs: Last Vital Signs Temp 97.9 F 01/17/18 08:33 Pulse 59 L 01/17/18 08:33 Resp 20 01/17/18 08:33 BP 136/90 01/17/18 08:33 Pulse Ox 99 01/17/18 08:33 - Labs Result Diagrams: 01/16/18 18:47 01/16/18 18:47 Labs: Laboratory Results - last 24 hr 01/16/18 01/16/18 01/16/18 18:47 18:47 18:55 WBC 7.9 RBC 5.39 Hgb 13.1 Hct 42.7 MCV 79.2 L MCH 24.3 L MCHC 30.7 L RDW 17.6 H Plt Count 133 MPV 9.2 Neut % (Auto) 75.6 H Lymph % (Auto) 12.2 L Wolfe % (Auto) 8.1 Eos % (Auto) 3.3 Baso % (Auto) 0.8 Neut # (Auto) 6.0 Lymph # (Auto) 1.0 Wolfe # (Auto) 0.6 Eos # (Auto) 0.3 Baso # (Auto) 0.1 PT INR APTT D-Dimer, Quantitative Puncture Site Rradial pCO2 41 pO2 79 L HCO3 23.2 ABG pH 7.36 ABG Total CO2 24.5 ABG O2 Saturation 97.5 ABG Base Excess -2.2 L Gibran Test Pos ABG Potassium 4.0 A-a O2 Difference 19.0 Respiratory Index 0.2 Glucose 214 H Lactate 1.7 FiO2 21.0 Sodium 136 135.0 Potassium 4.7 Chloride 102 103.0 Carbon Dioxide 19 L Anion Gap 19 BUN 16 Creatinine 1.0 Est GFR ( Amer) > 60 Est GFR (Non-Af Amer) > 60 Random Glucose 207 H Calcium 8.7 Total Bilirubin 0.6 AST 68 H D ALT 41 Alkaline Phosphatase 61 Total Creatine Kinase CK-MB (Mass) Troponin I 0.0260 NT-Pro-B Natriuret Pep 1080 H Total Protein 7.2 Albumin 4.0 Globulin 3.2 Albumin/Globulin Ratio 1.2 Lipase 250 Arterial Blood Potassium 4.0 Urine Color Urine Clarity Urine pH Ur Specific [place] Urine Protein Urine Glucose (UA) Urine Ketones Urine Blood Urine Nitrate Urine Bilirubin Urine Urobilinogen Ur Leukocyte Esterase Urine WBC (Auto) Urine RBC (Auto) 01/16/18 01/17/18 01/17/18 19:05 04:14 08:28 WBC RBC Hgb Hct MCV MCH MCHC RDW Plt Count MPV Neut % (Auto) Lymph % (Auto) Wolfe % (Auto) Eos % (Auto) Baso % (Auto) Neut # (Auto) Lymph # (Auto) Wolfe # (Auto) Eos # (Auto) Baso # (Auto) PT 12.2 INR 1.1 APTT 31 D-Dimer, Quantitative 895 H Puncture Site pCO2 pO2 HCO3 ABG pH ABG Total CO2 ABG O2 Saturation ABG Base Excess Gibran Test ABG Potassium A-a O2 Difference Respiratory Index Glucose Lactate FiO2 Sodium Potassium Chloride Carbon Dioxide Anion Gap BUN Creatinine Est GFR ( Amer) Est GFR (Non-Af Amer) Random Glucose Calcium Total Bilirubin AST ALT Alkaline Phosphatase Total Creatine Kinase 403 H CK-MB (Mass) 8.07 H Troponin I 0.0370 NT-Pro-B Natriuret Pep Total Protein Albumin Globulin Albumin/Globulin Ratio Lipase Arterial Blood Potassium Urine Color Yellow Urine Clarity Clear Urine pH 6.0 Ur Specific [place] 1.014 Urine Protein 2+ H Urine Glucose (UA) 1+ H Urine Ketones Negative Urine Blood Negative Urine Nitrate Negative Urine Bilirubin Negative Urine Urobilinogen Normal Ur Leukocyte Esterase Neg Urine WBC (Auto) < 1 Urine RBC (Auto) 2 - EKG Data EKG Interpreted by: Myself EKG shows normal: Sinus rhythm Assessment & Plan (1) Chest pain Assessment and Plan: patient has significant cardiovascular risk factors. Recommend nuclear stress test for further evaluation. Status: Acute (2) Chronic congestive heart failure Assessment and Plan: diastolic dysfunction. recommend medical therapy Status: Acute (3) CAD (coronary artery disease) of artery bypass graft Assessment and Plan: known occlusion of stents. recommend ASA therapy. can d/c Brilinta Status: Chronic
--- NOTE | 2018-01-17 09:54 | CP.PCM.PN ---
Subjective - Date & Time of Evaluation Date of Evaluation: 01/17/18 Time of Evaluation: 09:20 - Subjective Subjective: stress test performed. await nuclear images Objective - Vital Signs/Intake and Output Vital Signs (last 24 hours): Temp Pulse Resp BP Pulse Ox 97.9 F 59 L 20 136/90 99 01/17/18 08:33 01/17/18 08:33 01/17/18 08:33 01/17/18 08:33 01/17/18 08:33 Intake and Output: 01/17/18 01/17/18 06:59 18:59 Output Total 300 Balance -300 - Medications Medications: Current Medications Albuterol/Ipratropium (Duoneb 3 Mg/0.5 Mg (3 Ml) Ud) 3 ml INH RQ6 FLORES Last Admin: 01/17/18 08:16 Dose: Not Given Aspirin (Ecotrin) 81 mg PO DAILY [facility] Carvedilol (Coreg) 12.5 mg PO BID [facility] Enoxaparin Sodium (Lovenox) 60 mg SC Q12H [facility] Furosemide (Lasix) 20 mg IVP DAILY [facility] Gabapentin (Neurontin) 400 mg PO TID [facility] Glimepiride (Amaryl) 4 mg PO DAILY [facility] Insulin Aspart (Novolog) 0 unit SC ACHS [facility] PRN Reason: Protocol Lisinopril (Zestril) 20 mg PO DAILY [facility] Metformin HCl (Glucophage) 1,000 mg PO BID [facility] Pantoprazole Sodium (Protonix Ec Tab) 40 mg PO DAILY [facility] Rosuvastatin Calcium (Crestor) 10 mg PO HS FLORES - Labs Labs: 01/16/18 18:47 01/16/18 18:47 PT 12.2 SECONDS (9.7-12.2) 01/16/18 19:05 INR 1.1 01/16/18 19:05 APTT 31 SECONDS (21-34) 01/16/18 19:05 Assessment and Plan (1) Chest pain Status: Acute (2) Chronic congestive heart failure Status: Acute (3) CAD (coronary artery disease) of artery bypass graft Status: Chronic
[2018-01-17] MEDS: Enoxaparin 60 mg Syringe SC SCH ×2 (10:00→22:29)
[2018-01-17] MEDS: Pantoprazole 40 mg EC Tab PO SCH (10:00)
--- NOTE | 2018-01-17 16:20 | CARD ---
APPROVED REPORT EKG Measurement Heart [id number] HI [id number] <Conclusion> Normal sinus rhythm with sinus arrhythmia Rightward axis Nonspecific intraventricular block Abnormal ECG
--- NOTE | 2018-01-17 16:48 | CP.PCM.HP ---
History of Present Illness - History of Present Illness History of Present Illness: 67 yo M with PMH of CAD, CHF, Asthma, Arthritis, COPD, CVA (affecting right side of body), DM, Gastritis, HTN, HLD presents to ED with c/o dizziness and feeling light headed since morning when pt woke up. Pt reports symptoms ongoing since 1 week with associated generalized weakness and diarrhea. Pt also c/o exertional dyspnea x 1 month. Pt states since his heart attack 4 months prior, he has been having chest pain similar to previous episodes of CP. Pt recently discharged from [facility] where he was admitted for "feeling weak from pneumonia" where evaluation was "normal" as per pt. Pt c/o b/l LE weakness. Denies fever, chest pain, n/v, dysuria. Review of Systems - Constitutional Constitutional: Weakness - Cardiovascular Cardiovascular: Chest Pain, Dyspnea - Gastrointestinal Gastrointestinal: Diarrhea - Neurological Neurological: Dizziness Past Patient History - Infectious Disease Hx of Infectious Diseases: None - Past Medical History & Family History Past Medical History?: Yes - Past Social History Smoking Status: Former Smoker - CARDIAC Hx Cardiac Disorders: Yes (CAD, CARDIAC ARRHYTHMIA) Hx Hypercholesterolemia: Yes Hx Hypertension: Yes - PULMONARY Hx Asthma: Yes Hx Chronic Obstructive Pulmonary Disease (COPD): Yes - NEUROLOGICAL HX Cerebrovascular Accident: Yes - HEENT Hx HEENT Problems: No - RENAL Hx Chronic Kidney Disease: No - ENDOCRINE/METABOLIC Hx Diabetes Mellitus Type 2: Yes - INTEGUMENTARY Hx Dermatological Problems: No Other/Comment: abdominal area with surgical scars - MUSCULOSKELETAL/RHEUMATOLOGICAL Hx Arthritis: Yes - GASTROINTESTINAL Hx Gastritis: Yes - PSYCHIATRIC Hx Substance Use: No - SURGICAL HISTORY Hx Coronary Artery Bypass Graft: Yes (BENDER to LAD, SVG to OM1,OM2, SVG to Diag, SVG to PDA. AVR/MVR (bioprosth)) Hx Coronary Stent: Yes (x9) - ANESTHESIA Hx Anesthesia: Yes Hx Anesthesia Reactions: No Hx Malignant Hyperthermia: No Meds Allergies/Adverse Reactions: Allergies Allergy/AdvReac Type Severity Reaction Status Date / Time iodine Allergy Intermediate SHORTNESS Verified 01/16/18 18:43 OF BREATH shellfish derived Allergy Intermediate ANGIOEDEMA Verified 01/16/18 18:43 milk Allergy Mild SHORTNESS Verified 01/16/18 18:43 OF BREATH Physical Exam - Constitutional Appears: Well - Head Exam Head Exam: ATRAUMATIC, NORMAL INSPECTION, NORMOCEPHALIC - Eye Exam Eye Exam: EOMI, Normal appearance, PERRL Pupil Exam: NORMAL ACCOMODATION, PERRL - ENT Exam ENT Exam: Mucous Membranes Moist, Normal Exam - Neck Exam Neck exam: Positive for: Normal Inspection - Respiratory Exam Respiratory Exam: Decreased Breath Sounds - Cardiovascular Exam Cardiovascular Exam: REGULAR RHYTHM, +S1, +S2 - GI/Abdominal Exam GI & Abdominal Exam: Diminished Bowel Sounds, Soft - Rectal Exam Rectal Exam: Deferred - Neurological Exam Neurological exam: Alert, Oriented x3 Results - Vital Signs Recent Vital Signs: Last Vital Signs Temp 98.5 F 01/17/18 15:25 Pulse 65 01/17/18 15:25 Resp 20 01/17/18 15:25 BP 156/102 H 01/17/18 15:25 Pulse Ox 100 01/17/18 15:25 - Labs Result Diagrams: 01/16/18 18:47 01/16/18 18:47 Labs: Laboratory Results - last 24 hr 01/16/18 01/16/18 01/16/18 18:47 18:47 18:55 WBC 7.9 RBC 5.39 Hgb 13.1 Hct 42.7 MCV 79.2 L MCH 24.3 L MCHC 30.7 L RDW 17.6 H Plt Count 133 MPV 9.2 Neut % (Auto) 75.6 H Lymph % (Auto) 12.2 L [place] % (Auto) 8.1 Eos % (Auto) 3.3 Baso % (Auto) 0.8 Neut # (Auto) 6.0 Lymph # (Auto) 1.0 [place] # (Auto) 0.6 Eos # (Auto) 0.3 Baso # (Auto) 0.1 PT INR APTT D-Dimer, Quantitative Puncture Site Rradial pCO2 41 pO2 79 L HCO3 23.2 ABG pH 7.36 ABG Total CO2 24.5 ABG O2 Saturation 97.5 ABG Base Excess -2.2 L Gibran Test Pos ABG Potassium 4.0 A-a O2 Difference 19.0 Respiratory Index 0.2 Glucose 214 H Lactate 1.7 FiO2 21.0 Sodium 136 135.0 Potassium 4.7 Chloride 102 103.0 Carbon Dioxide 19 L Anion Gap 19 BUN 16 Creatinine 1.0 Est GFR ( Amer) > 60 Est GFR (Non-Af Amer) > 60 POC Glucose (mg/dL) Random Glucose 207 H Calcium 8.7 Total Bilirubin 0.6 AST 68 H D ALT 41 Alkaline Phosphatase 61 Total Creatine Kinase CK-MB (Mass) Troponin I 0.0260 NT-Pro-B Natriuret Pep 1080 H Total Protein 7.2 Albumin 4.0 Globulin 3.2 Albumin/Globulin Ratio 1.2 Lipase 250 Arterial Blood Potassium 4.0 Urine Color Urine Clarity Urine pH Ur Specific [place] Urine Protein Urine Glucose (UA) Urine Ketones Urine Blood Urine Nitrate Urine Bilirubin Urine Urobilinogen Ur Leukocyte Esterase Urine WBC (Auto) Urine RBC (Auto) 01/16/18 01/17/18 01/17/18 19:05 04:14 06:29 WBC RBC Hgb Hct MCV MCH MCHC RDW Plt Count MPV Neut % (Auto) Lymph % (Auto) [place] % (Auto) Eos % (Auto) Baso % (Auto) Neut # (Auto) Lymph # (Auto) [place] # (Auto) Eos # (Auto) Baso # (Auto) PT 12.2 INR 1.1 APTT 31 D-Dimer, Quantitative 895 H Puncture Site pCO2 pO2 HCO3 ABG pH ABG Total CO2 ABG O2 Saturation ABG Base Excess Gibran Test ABG Potassium A-a O2 Difference Respiratory Index Glucose Lactate FiO2 Sodium Potassium Chloride Carbon Dioxide Anion Gap BUN Creatinine Est GFR ( Amer) Est GFR (Non-Af Amer) POC Glucose (mg/dL) 222 H Random Glucose Calcium Total Bilirubin AST ALT Alkaline Phosphatase Total Creatine Kinase CK-MB (Mass) Troponin I NT-Pro-B Natriuret Pep Total Protein Albumin Globulin Albumin/Globulin Ratio Lipase Arterial Blood Potassium Urine Color Yellow Urine Clarity Clear Urine pH 6.0 Ur Specific [place] 1.014 Urine Protein 2+ H Urine Glucose (UA) 1+ H Urine Ketones Negative Urine Blood Negative Urine Nitrate Negative Urine Bilirubin Negative Urine Urobilinogen Normal Ur Leukocyte Esterase Neg Urine WBC (Auto) < 1 Urine RBC (Auto) 2 01/17/18 01/17/18 08:28 16:25 WBC RBC Hgb Hct MCV MCH MCHC RDW Plt Count MPV Neut % (Auto) Lymph % (Auto) [place] % (Auto) Eos % (Auto) Baso % (Auto) Neut # (Auto) Lymph # (Auto) [place] # (Auto) Eos # (Auto) Baso # (Auto) PT INR APTT D-Dimer, Quantitative Puncture Site pCO2 pO2 HCO3 ABG pH ABG Total CO2 ABG O2 Saturation ABG Base Excess Gibran Test ABG Potassium A-a O2 Difference Respiratory Index Glucose Lactate FiO2 Sodium Potassium Chloride Carbon Dioxide Anion Gap BUN Creatinine Est GFR ( Amer) Est GFR (Non-Af Amer) POC Glucose (mg/dL) 253 H Random Glucose Calcium Total Bilirubin AST ALT Alkaline Phosphatase Total Creatine Kinase 403 H CK-MB (Mass) 8.07 H Troponin I 0.0370 NT-Pro-B Natriuret Pep Total Protein Albumin Globulin Albumin/Globulin Ratio Lipase Arterial Blood Potassium Urine Color Urine Clarity Urine pH Ur Specific [place] Urine Protein Urine Glucose (UA) Urine Ketones Urine Blood Urine Nitrate Urine Bilirubin Urine Urobilinogen Ur Leukocyte Esterase Urine WBC (Auto) Urine RBC (Auto) Assessment & Plan (1) Change in mental status Status: Acute (2) Chest pain Status: Acute (3) Hypoxia Status: Acute (4) Acute ST elevation myocardial infarction (STEMI) Status: Acute (5) Acute encephalopathy Status: Acute Priority: High (6) Acute posterior epistaxis Status: Acute (7) Adjustment disorder Status: Acute (8) Angioedema Status: Acute (9) Bronchitis Status: Acute (10) Chronic congestive heart failure Status: Acute (11) Congestive heart failure Status: Acute (12) DVT prophylaxis Status: Acute (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, managed as type 2 Status: Acute (14) Dizziness Status: Acute (15) Dyspnea Status: Acute (16) Dyspnea Status: Acute (17) Dyspnea Status: Acute (18) Elevated troponin I level Status: Acute (19) Episodic confusion Status: Acute (20) H/O acute myocardial infarction Status: Acute (21) H/O: CVA (cerebrovascular accident) Status: Acute (22) Headache Status: Acute (23) History of aortic valve replacement Status: Acute (24) History of depression Status: Acute (25) History of gastroesophageal reflux (GERD) Status: Acute (26) History of mitral valve replacement Status: Acute (27) History of pacemaker Status: Acute (28) History of peripheral neuropathy Status: Acute (29) Hyperglycemia Status: Acute (30) Hyperglycemia Status: Acute (31) Hyperkalemia Status: Acute (32) Hypotension Status: Acute (33) Microscopic hematuria Status: Acute (34) Moderate major depression, single episode Status: Acute (35) NSTEMI (non-ST elevated myocardial infarction) Status: Acute (36) Nasal congestion Status: Acute (37) Near syncope Status: Acute (38) Near syncope Status: Acute (39) Nontransmural infarction Status: Acute (40) Pleural effusion Status: Acute (41) Pneumonia Status: Acute (42) Prophylactic measure Status: Acute (43) Prophylactic measure Status: Acute (44) Right temporal lobe infarction Status: Acute (45) S/P CABG (coronary artery bypass graft) Status: Acute (46) ST elevation (STEMI) myocardial infarction involving other coronary artery of inferior wall Status: Acute (47) Sepsis Status: Acute (48) Sinusitis Status: Acute (49) Sinusitis Status: Acute (50) Staphylococcus aureus bacteremia Status: Acute (51) TIA (transient ischemic attack) Status: Acute (52) Tongue swelling Status: Acute (53) CAD (coronary artery disease) of artery bypass graft Status: Chronic (54) Diabetes Status: Chronic (55) Hypertension Status: Chronic - Assessment and Plan (Free Text) Plan: meds and labs reviewed rafa meds as ordered monitor labs pulm cardio f/u BCx UCx heart healthy diet
--- NOTE | 2018-01-17 19:31 | CP.PCM.CON ---
History of Present Illness - History of Present Illness History of Present Illness: Reason for consult: hypoxia Mr Naqvi is a 67 year old male with PMHx of COPD/Asthma, CHF, DM, CAD who presented to the ED on 01/16 for evaluation of lightheadedness and dizziness. PMHx: Arthritis, Asthma, CAD, Cardia Arrhythmia, CHF, COPD, CVA (affecting right side of body), Depression (denies), Diabetes, Gastritis, HTN, Hypercholesterolemia PSHx: CABG (BENDER to LAD, SVG to OM1, OM2, SVG to Diag, SVG to PDA. AVR/MVR ( bioprosth), Coronary Stent (x9), Pacemaker Allergies: iodine, shellfish, milk Social Hx: former smoker, quit 20 years ago Patient seen and examined at bedside today Resting in mild respiratory distress and increased respiratory effort On supplemental oxygen Reports 1-2 months of shortness of breath and occasional cough and chest pain, states this occurs with change of season and weather Strong cardiac history Denies fever/chills, wheezing Reports feeling very congested, but notes improvement over the past few days Assessment/Plan: 1. Hypoxia -Most recent chest XR on 01/16: Prominent increased consolidative changes seen within the left mid to lower lung zone concerning for infiltrate and or atelectasis. Small left pleural effusion. Venous congestion. Right hilar prominence. Cardiomegaly. -Initial vital signs at ED Triage note saturation at 90% on room air, oxygen applied via NC -Vital signs reviewed, saturation is stable with supplemental oxygen -Continue supplemental oxygen to maintain saturation over 95% -Continue nebulizer treatment 2. Elevated d-dimer -D-dimer on admission: 895 -VQ scan on 01/16: No findings to suggest pulmonary embolism. -Continue DVT prophylaxis 3. Chest pain -Stress test performed today 01/17 -Management per primary team and cardiology Past Patient History - Infectious Disease Hx of Infectious Diseases: None - Past Medical History & Family History Past Medical History?: Yes - Past Social History Smoking Status: Former Smoker - CARDIAC Hx Cardiac Disorders: Yes (CAD, CARDIAC ARRHYTHMIA) Hx Hypercholesterolemia: Yes Hx Hypertension: Yes - PULMONARY Hx Asthma: Yes Hx Chronic Obstructive Pulmonary Disease (COPD): Yes - NEUROLOGICAL HX Cerebrovascular Accident: Yes - HEENT Hx HEENT Problems: No - RENAL Hx Chronic Kidney Disease: No - ENDOCRINE/METABOLIC Hx Diabetes Mellitus Type 2: Yes - INTEGUMENTARY Hx Dermatological Problems: No Other/Comment: abdominal area with surgical scars - MUSCULOSKELETAL/RHEUMATOLOGICAL Hx Arthritis: Yes - GASTROINTESTINAL Hx Gastritis: Yes - PSYCHIATRIC Hx Substance Use: No - SURGICAL HISTORY Hx Coronary Artery Bypass Graft: Yes (BENDER to LAD, SVG to OM1,OM2, SVG to Diag, SVG to PDA. AVR/MVR (bioprosth)) Hx Coronary Stent: Yes (x9) - ANESTHESIA Hx Anesthesia: Yes Hx Anesthesia Reactions: No Hx Malignant Hyperthermia: No Meds Allergies/Adverse Reactions: Allergies Allergy/AdvReac Type Severity Reaction Status Date / Time iodine Allergy Intermediate SHORTNESS Verified 01/16/18 18:43 OF BREATH shellfish derived Allergy Intermediate ANGIOEDEMA Verified 01/16/18 18:43 milk Allergy Mild SHORTNESS Verified 01/16/18 18:43 OF BREATH - Medications Medications: Current Medications Albuterol/Ipratropium (Duoneb 3 Mg/0.5 Mg (3 Ml) Ud) 3 ml INH RQ6 [facility] Last Admin: 01/17/18 13:45 Dose: 3 ml Aspirin (Ecotrin) 81 mg PO DAILY [facility] Last Admin: 01/17/18 10:00 Dose: Not Given Carvedilol (Coreg) 12.5 mg PO BID [facility] Last Admin: 01/17/18 10:00 Dose: Not Given Enoxaparin Sodium (Lovenox) 60 mg SC Q12H [facility] Last Admin: 01/17/18 10:00 Dose: Not Given Furosemide (Lasix) 20 mg IVP DAILY [facility] Last Admin: 01/17/18 16:53 Dose: 20 mg Gabapentin (Neurontin) 400 mg PO TID [facility] Last Admin: 01/17/18 17:48 Dose: 400 mg Glimepiride (Amaryl) 4 mg PO DAILY [facility] Last Admin: 01/17/18 10:00 Dose: Not Given Insulin Aspart (Novolog) 0 unit SC ACHS [facility] PRN Reason: Protocol Last Admin: 01/17/18 17:30 Dose: 3 unit Lisinopril (Zestril) 20 mg PO DAILY [facility] Last Admin: 01/17/18 16:53 Dose: 20 mg Metformin HCl (Glucophage) 1,000 mg PO BID [facility] Last Admin: 01/17/18 17:48 Dose: 1,000 mg Pantoprazole Sodium (Protonix Ec Tab) 40 mg PO DAILY [facility] Last Admin: 01/17/18 10:00 Dose: Not Given Rosuvastatin Calcium (Crestor) 10 mg PO HS [facility] Results - Vital Signs Recent Vital Signs: Last Vital Signs Temp 98.5 F 01/17/18 15:25 Pulse 65 01/17/18 15:25 Resp 20 01/17/18 15:25 BP 156/102 H 01/17/18 16:53 Pulse Ox 100 01/17/18 15:25 - Labs Result Diagrams: 01/16/18 18:47 01/16/18 18:47 Labs: Laboratory Results - last 24 hr 01/16/18 01/17/18 01/17/18 18:47 04:14 06:29 WBC 7.9 RBC 5.39 Hgb 13.1 Hct 42.7 MCV 79.2 L MCH 24.3 L MCHC 30.7 L RDW 17.6 H Plt Count 133 MPV 9.2 Neut % (Auto) 75.6 H Lymph % (Auto) 12.2 L [place] % (Auto) 8.1 Eos % (Auto) 3.3 Baso % (Auto) 0.8 Neut # (Auto) 6.0 Lymph # (Auto) 1.0 [place] # (Auto) 0.6 Eos # (Auto) 0.3 Baso # (Auto) 0.1 POC Glucose (mg/dL) 222 H Total Creatine Kinase CK-MB (Mass) Troponin I Urine Color Yellow Urine Clarity Clear Urine pH 6.0 Ur Specific [place] 1.014 Urine Protein 2+ H Urine Glucose (UA) 1+ H Urine Ketones Negative Urine Blood Negative Urine Nitrate Negative Urine Bilirubin Negative Urine Urobilinogen Normal Ur Leukocyte Esterase Neg Urine WBC (Auto) < 1 Urine RBC (Auto) 2 01/17/18 01/17/18 08:28 16:25 WBC RBC Hgb Hct MCV MCH MCHC RDW Plt Count MPV Neut % (Auto) Lymph % (Auto) [place] % (Auto) Eos % (Auto) Baso % (Auto) Neut # (Auto) Lymph # (Auto) [place] # (Auto) Eos # (Auto) Baso # (Auto) POC Glucose (mg/dL) 253 H Total Creatine Kinase 403 H CK-MB (Mass) 8.07 H Troponin I 0.0370 Urine Color Urine Clarity Urine pH Ur Specific [place] Urine Protein Urine Glucose (UA) Urine Ketones Urine Blood Urine Nitrate Urine Bilirubin Urine Urobilinogen Ur Leukocyte Esterase Urine WBC (Auto) Urine RBC (Auto)
[2018-01-18] MEDS: Albuterol-Ipratrop 3 mg / 0.5 (3 ml) UD INH SCH ×4 (01:10→19:42)
--- NOTE | 2018-01-18 08:01 | CARD ---
APPROVED REPORT Protocol: LEXISCAN Test Type: LEXISCAN STRESS Test Indications: DM COPD Target HR: 153 bpm Resting ECG: normal Resting Heart Rate: 61 bpm Resting Blood Pressure: 132/80mmHg submaximum (85%): 130 bpm TEST SUMMARY [id number]..1.062/.0. PREINFSNHYPERV.05:[id number]/80.1. INFUSIONDOSE 100:300.00.01.062/.2. [id number]/80.0. PROCEDURE Pharmacologic stress testing was performed using 0.4mg per 5ml of regadenoson given intravenously over 7-10 seconds. Reversal agent aminophyline 125 mg, given intravenously for Headache. POST EXERCISE Reason for Termination: Protocol Completed Target HR: No Max HR: 62 bpm 44% of Maximum Predicted HR: 153 bpm Exercise duration: 00:30 min:sec, 0 Stage Exercise capacity: 1.0METs Max Blood Pressure: 132/80mmHg Blood Pressure response to exercise: normal resting BP - appropriate response Heart Rate response to exercise: appropriate Chest Pain: No, none Angina index: 0 Arrhythmia: Yes, ventricular premature beats ST Change: No, none Deviation: 0 mm INTERPRETATION Stress EKG Conclusion: AWAIT NUCLEAR IMAGES EXAM: Myocardial Perfusion STRESS/REST Imaging Protocol The imaging protocol used to acquire images was Stress Tc-99m/rest Tc-99m 1 day Rest Spect myocardial perfusion imaging was performed in supine position 45 minutes following the injection of 33.0 mCi of Tc-99 Myoview. Gated Stress Spect was performed 45 minutes after intravenous 13.0 mCi Tc-99 Myoview injection. The images were gated to evaluate regional wall motion and calculate ventricular ejection fraction.Images were reconstructed using backfilter projection method in short horizontal and verticle long axis. Spect slices were generated. RESTING DATA QQL068.30fyLF5.80L/min IOZ517.00mlMyocardial Xvxn648.00g Av. Heart Rate68.00bpm EF22.00% STRESS DATA QKT717.33osHM8.00L/min KZY026.00mlMyocardial Htwu893.00g EF26.00% Regional WT score at stress:3.00 Regional WM score at stress:1.00 Summed WT score at stress:40.00 Av. Heart Rate78.00bpmSummed WM score at stress:44.00 LV Perf. Quant 17 Seg. SSS32.00 17 Seg. SRS32.00 17 Seg. SDS2.00 Stress Defect Extent (% LAD)48.80Rest Defect Extent (% LAD)47.50Rev. Defect Extent (% LAD)9.40 Stress Defect Extent (% LCX)97.50Rest Defect Extent (% LCX)97.50Rev. Defect Extent (% LCX)0.00 Stress Defect Extent (% RCA)33.30Rest Defect Extent (% RCA)36.70Rev. Defect Extent (% RCA)4.40 Stress Defect Extent (% GITA)58.00Rest Defect Extent (% GITA)57.20Rev. Defect Extent (% GITA)10.00 Other Information Quality:Excellent IMPRESSION Abnormal Myocardial Perfusion exercise stress study Global LV Function: Severely reduced Stress Test Summary: Nondiagnostic LV Perfusion Summary: Abnormal Left Ventricle LV Size/Shape: The Left Ventricle is mildly dilated. LV Thickness: There is normal left ventricular wall thickness. LV Function:Left ventricle systolic function is severely reduced. The Ejection Fraction is 20-25%. Regional Wall Motion:There is severe hypokinesis in the mid-anterior wall. There is severe hypokinesis in the apical anterior wall. There is severe akinesis in the mid-inferolateral wall. Metabolism/Perfusion Reversible/Irreversible: There is a large irreversible perfusion/metabolism defect in the Mid-anterior wall. There is a large irreversible perfusion/metabolism defect in the Apical anterior wall. There is a large irreversible perfusion/metabolism defect in the Mid-inferolateral wall. There is a large irreversible perfusion/metabolism defect in the Mid-inferior wall. Conclusion 1. Significant infarction of multiple segments of the left ventricle. 2. Severe left ventricular systolic dysfunction.
[2018-01-18] MEDS: (Novolog) Insulin Aspart, Recombinant 100 u/ml 10 ml vial SC SCH ×4 (08:06→21:13)
--- NOTE | 2018-01-18 08:33 | CP.PCM.PN ---
Subjective - Date & Time of Evaluation Date of Evaluation: 01/18/18 Time of Evaluation: 08:15 - Subjective Subjective: patient has no chest pain. Objective - Vital Signs/Intake and Output Vital Signs (last 24 hours): Temp Pulse Resp BP Pulse Ox 98.3 F 66 20 105/58 L 96 01/18/18 08:00 01/18/18 08:00 01/18/18 08:00 01/18/18 08:00 01/18/18 08:00 Intake and Output: 01/18/18 01/18/18 06:59 18:59 Intake Total 720 Balance 720 - Medications Medications: Current Medications Albuterol/Ipratropium (Duoneb 3 Mg/0.5 Mg (3 Ml) Ud) 3 ml INH RQ6 [facility] Last Admin: 01/18/18 07:16 Dose: 3 ml Aspirin (Ecotrin) 81 mg PO DAILY [facility] Last Admin: 01/17/18 10:00 Dose: Not Given Carvedilol (Coreg) 12.5 mg PO BID [facility] Last Admin: 01/17/18 21:15 Dose: 12.5 mg Enoxaparin Sodium (Lovenox) 60 mg SC Q12H [facility] Last Admin: 01/17/18 22:29 Dose: 60 mg Furosemide (Lasix) 20 mg IVP DAILY [facility] Last Admin: 01/17/18 16:53 Dose: 20 mg Gabapentin (Neurontin) 400 mg PO TID [facility] Last Admin: 01/17/18 17:48 Dose: 400 mg Glimepiride (Amaryl) 4 mg PO DAILY [facility] Last Admin: 01/17/18 10:00 Dose: Not Given Insulin Aspart (Novolog) 0 unit SC [facility] PRN Reason: Protocol Last Admin: 01/18/18 08:06 Dose: 2 unit Lisinopril (Zestril) 20 mg PO DAILY [facility] Last Admin: 01/17/18 16:53 Dose: 20 mg Metformin HCl (Glucophage) 1,000 mg PO BID [facility] Last Admin: 01/17/18 17:48 Dose: 1,000 mg Pantoprazole Sodium (Protonix Ec Tab) 40 mg PO DAILY [facility] Last Admin: 01/17/18 10:00 Dose: Not Given Rosuvastatin Calcium (Crestor) 10 mg PO HS [facility] Last Admin: 01/17/18 22:27 Dose: 10 mg - Labs Labs: 01/16/18 18:47 01/16/18 18:47 PT 12.2 SECONDS (9.7-12.2) 01/16/18 19:05 INR 1.1 01/16/18 19:05 APTT 31 SECONDS (21-34) 01/16/18 19:05 - Constitutional Appears: Non-toxic - Head Exam Head Exam: NORMAL INSPECTION - Eye Exam Eye Exam: Normal appearance - ENT Exam ENT Exam: Mucous Membranes Moist - Neck Exam Neck Exam: Full ROM - Respiratory Exam Respiratory Exam: Decreased Breath Sounds - Cardiovascular Exam Cardiovascular Exam: REGULAR RHYTHM - GI/Abdominal Exam GI & Abdominal Exam: Normal Bowel Sounds - Rectal Exam Rectal Exam: Deferred - Extremities Exam Extremities Exam: absent: Pedal Edema - Back Exam Back Exam: NORMAL INSPECTION - Neurological Exam Neurological Exam: Alert - Psychiatric Exam Psychiatric exam: Normal Affect - Skin Skin Exam: Normal Color Assessment and Plan (1) Chest pain Assessment & Plan: I reviewed the stress test. There are large areas of infarction without reversible ischemia. There is severe LV dysfunction. Medical therapy with ASA. can add Plavix 75 mg daily. Status: Acute (2) Chronic congestive heart failure Assessment & Plan: severe LV dysfunction. Previous echocardiogram in november EF 40-45%. Patient has a PPM. He will need reevlauation of EF in 3 months. If persistent LV dsfunction recommend upgrade to AICD. consider the addition of Entresto. Status: Acute (3) CAD (coronary artery disease) of artery bypass graft Status: Chronic
[2018-01-18] MEDS: Enoxaparin 60 mg Syringe SC SCH ×2 (09:47→21:45)
[2018-01-18] MEDS: Pantoprazole 40 mg EC Tab PO SCH (09:48)
--- NOTE | 2018-01-18 09:49 | CP.PCM.PN ---
Subjective - Date & Time of Evaluation Date of Evaluation: 01/18/18 Time of Evaluation: 09:49 - Subjective Subjective: Progress Note for Dr. Lux's Service Pt seen and examined at bedside. He continues to complain of weakness and states that he doesnt understand his rapid decompensation. He exhibits a profound lack of insight into his medical condition/hx. No current chest pain. Objective - Vital Signs/Intake and Output Vital Signs (last 24 hours): Temp Pulse Resp BP Pulse Ox 98.3 F 65 20 130/80 96 01/18/18 08:00 01/18/18 09:47 01/18/18 08:00 01/18/18 09:47 01/18/18 08:00 Intake and Output: 01/18/18 01/18/18 06:59 18:59 Intake Total 720 Balance 720 - Medications Medications: Current Medications Albuterol/Ipratropium (Duoneb 3 Mg/0.5 Mg (3 Ml) Ud) 3 ml INH RQ6 [facility] Last Admin: 01/18/18 07:16 Dose: 3 ml Aspirin (Ecotrin) 81 mg PO DAILY [facility] Last Admin: 01/17/18 10:00 Dose: Not Given Carvedilol (Coreg) 12.5 mg PO BID [facility] Last Admin: 01/17/18 21:15 Dose: 12.5 mg Enoxaparin Sodium (Lovenox) 60 mg SC Q12H [facility] Last Admin: 01/17/18 22:29 Dose: 60 mg Furosemide (Lasix) 20 mg IVP DAILY [facility] Last Admin: 01/17/18 16:53 Dose: 20 mg Gabapentin (Neurontin) 400 mg PO TID [facility] Last Admin: 01/17/18 17:48 Dose: 400 mg Glimepiride (Amaryl) 4 mg PO DAILY [facility] Last Admin: 01/17/18 10:00 Dose: Not Given Insulin Aspart (Novolog) 0 unit SC ACHS [facility] PRN Reason: Protocol Last Admin: 01/18/18 08:06 Dose: 2 unit Lisinopril (Zestril) 20 mg PO DAILY [facility] Last Admin: 01/17/18 16:53 Dose: 20 mg Metformin HCl (Glucophage) 1,000 mg PO BID [facility] Last Admin: 01/17/18 17:48 Dose: 1,000 mg Pantoprazole Sodium (Protonix Ec Tab) 40 mg PO DAILY [facility] Last Admin: 01/17/18 10:00 Dose: Not Given Rosuvastatin Calcium (Crestor) 10 mg PO HS [facility] Last Admin: 01/17/18 22:27 Dose: 10 mg - Labs Labs: 01/16/18 18:47 01/16/18 18:47 PT 12.2 SECONDS (9.7-12.2) 01/16/18 19:05 INR 1.1 01/16/18 19:05 APTT 31 SECONDS (21-34) 01/16/18 19:05 - Head Exam Head Exam: ATRAUMATIC, NORMOCEPHALIC - Eye Exam Eye Exam: EOMI - ENT Exam ENT Exam: Mucous Membranes Moist - Respiratory Exam Respiratory Exam: Clear to Ausculation Bilateral, NORMAL BREATHING PATTERN - Cardiovascular Exam Cardiovascular Exam: REGULAR RHYTHM - GI/Abdominal Exam GI & Abdominal Exam: Soft. absent: Tenderness - Extremities Exam Extremities Exam: absent: Pedal Edema - Neurological Exam Neurological Exam: Alert, Awake, Oriented x3 - Psychiatric Exam Psychiatric exam: Normal Affect, Normal Mood - Skin Skin Exam: Dry, Warm Assessment and Plan - Assessment and Plan (Free Text) Plan: Chest pain Consult placed to Dr. Ambreen maldonado appreciated Stress test performed 01/17- large areas of infarction without reversible ischemia; severe LV dysfunction Recommending medical therapy with ASA and addition of Plavix 75 mg daily ( started 01/18/18) ECHO 01/17 Severely reduced LV systolic function with EF of 20-25% Trop 0.0260->0.0370 This patient has a hx of CAD and known occlusion of stents as per cardio CAD s/p CABG AVR/MVR ASA 81mg PO daily Plavix 75mg PO daily Hypoxia -CXR on 01/16: Prominent increased consolidative changes seen within the left mid to lower lung zone concerning for infiltrate and or atelectasis. Small left pleural effusion. Venous congestion. Right hilar prominence. Cardiomegaly. -D-dimer on admission: 895 -VQ scan on 01/16: No findings to suggest pulmonary embolism -Continue supplemental oxygen to maintain saturation over 95% -Continue nebulizer treatment q6hrs CHF- combined Consult placed to Dr. Ambreen maldonado appreciated Severe LV dysfunction. Previous echocardiogram in november EF 40-45%. Patient has a PPM. He will need reevlauation of EF in 3 months. If persistent LV dsfunction recommend upgrade to AICD. Consider the addition of Entresto. Echo 01/17- As above Lasix 20mg IVP daily CAD s/p CABG AVR/MVR s/p cardiac cath with stents complicated by occlusion ASA 81mg PO daily Plavix 75mg PO daily Diabetes complicated by neuropathy Glimeperide 4mg PO daily Metformin 1000mg PO BID [facility] Gabapentin 400mg PO TID Lisinopril 20mg PO daily Crestor 10mg PO QHS Prophylaxis Lovenox 60mg SC q12hrs Pepcid 20mg PO BID Case discussed with Dr. Lux All management as per Dr. Lux
--- NOTE | 2018-01-18 12:45 | CP.PCM.PN ---
Subjective - Date & Time of Evaluation Date of Evaluation: 01/18/18 Time of Evaluation: 08:50 - Subjective Subjective: the patient seen and examined Patient on high flow oxygen 70% Complaining of dyspnea on exertion Had a stress test done yesterday Denies cough, denies fever chills, denies chest pain Objective - Vital Signs/Intake and Output Vital Signs (last 24 hours): Temp Pulse Resp BP Pulse Ox 98.3 F 89 20 130/80 96 01/18/18 08:00 01/18/18 11:32 01/18/18 08:00 01/18/18 09:48 01/18/18 08:00 Intake and Output: 01/18/18 01/18/18 06:59 18:59 Intake Total 720 Balance 720 - Medications Medications: Current Medications Albuterol/Ipratropium (Duoneb 3 Mg/0.5 Mg (3 Ml) Ud) 3 ml INH RQ6 [facility] Last Admin: 01/18/18 07:16 Dose: 3 ml Aspirin (Ecotrin) 81 mg PO DAILY [facility] Last Admin: 01/18/18 09:48 Dose: 81 mg Carvedilol (Coreg) 12.5 mg PO BID [facility] Last Admin: 01/18/18 09:48 Dose: 12.5 mg Clopidogrel Bisulfate (Plavix) 75 mg PO DAILY [facility] Enoxaparin Sodium (Lovenox) 60 mg SC Q12H [facility] Last Admin: 01/18/18 09:47 Dose: 60 mg Famotidine (Pepcid) 20 mg PO BID [facility] Last Admin: 01/18/18 12:30 Dose: 20 mg Furosemide (Lasix) 20 mg IVP DAILY [facility] Last Admin: 01/18/18 09:48 Dose: 20 mg Gabapentin (Neurontin) 400 mg PO TID [facility] Last Admin: 01/18/18 09:48 Dose: 400 mg Glimepiride (Amaryl) 4 mg PO DAILY [facility] Last Admin: 01/18/18 09:52 Dose: 4 mg Insulin Aspart (Novolog) 0 unit SC ACHS [facility] PRN Reason: Protocol Last Admin: 01/18/18 12:30 Dose: 3 unit Lisinopril (Zestril) 20 mg PO DAILY [facility] Last Admin: 01/18/18 09:48 Dose: 20 mg Metformin HCl (Glucophage) 1,000 mg PO BID [facility] Last Admin: 01/18/18 09:48 Dose: 1,000 mg Rosuvastatin Calcium (Crestor) 10 mg PO HS [facility] Last Admin: 01/17/18 22:27 Dose: 10 mg - Labs Labs: 01/16/18 18:47 01/16/18 18:47 PT 12.2 SECONDS (9.7-12.2) 01/16/18 19:05 INR 1.1 01/16/18 19:05 APTT 31 SECONDS (21-34) 01/16/18 19:05 - Head Exam Head Exam: ATRAUMATIC, NORMOCEPHALIC - Eye Exam Eye Exam: Normal appearance - Neck Exam Neck Exam: Normal Inspection - Respiratory Exam Respiratory Exam: Decreased Breath Sounds - Cardiovascular Exam Cardiovascular Exam: REGULAR RHYTHM - GI/Abdominal Exam GI & Abdominal Exam: Soft Assessment and Plan (1) Hypoxia Assessment & Plan: Most likely secondary to CHF/ atelectasis Switch to 3 L nasal cannula Followup ABG Pro calcitonin level Pneumonia unlikely Medical management as per cardiology Status: Acute
--- NOTE | 2018-01-18 13:40 | CP.PCM.PN ---
Subjective - Date & Time of Evaluation Date of Evaluation: 01/18/18 Time of Evaluation: 09:20 - Subjective Subjective: clinically same s/p cardio s/p pulm Objective - Vital Signs/Intake and Output Vital Signs (last 24 hours): Temp Pulse Resp BP Pulse Ox 98.3 F 89 20 130/80 96 01/18/18 08:00 01/18/18 11:32 01/18/18 08:00 01/18/18 09:48 01/18/18 08:00 Intake and Output: 01/18/18 01/18/18 06:59 18:59 Intake Total 720 400 Balance 720 400 - Medications Medications: Current Medications Albuterol/Ipratropium (Duoneb 3 Mg/0.5 Mg (3 Ml) Ud) 3 ml INH RQ6 [facility] Last Admin: 01/18/18 13:24 Dose: 3 ml Aspirin (Ecotrin) 81 mg PO DAILY [facility] Last Admin: 01/18/18 09:48 Dose: 81 mg Carvedilol (Coreg) 12.5 mg PO BID [facility] Last Admin: 01/18/18 09:48 Dose: 12.5 mg Clopidogrel Bisulfate (Plavix) 75 mg PO DAILY [facility] Enoxaparin Sodium (Lovenox) 60 mg SC Q12H [facility] Last Admin: 01/18/18 09:47 Dose: 60 mg Famotidine (Pepcid) 20 mg PO BID [facility] Last Admin: 01/18/18 12:30 Dose: 20 mg Furosemide (Lasix) 20 mg IVP DAILY [facility] Last Admin: 01/18/18 09:48 Dose: 20 mg Gabapentin (Neurontin) 400 mg PO TID [facility] Last Admin: 01/18/18 13:15 Dose: 400 mg Glimepiride (Amaryl) 4 mg PO DAILY [facility] Last Admin: 01/18/18 09:52 Dose: 4 mg Insulin Aspart (Novolog) 0 unit SC [facility] PRN Reason: Protocol Last Admin: 01/18/18 12:30 Dose: 3 unit Lisinopril (Zestril) 20 mg PO DAILY [facility] Last Admin: 01/18/18 09:48 Dose: 20 mg Metformin HCl (Glucophage) 1,000 mg PO BID [facility] Last Admin: 01/18/18 09:48 Dose: 1,000 mg Rosuvastatin Calcium (Crestor) 10 mg PO HS [facility] Last Admin: 01/17/18 22:27 Dose: 10 mg - Labs Labs: 01/16/18 18:47 01/16/18 18:47 PT 12.2 SECONDS (9.7-12.2) 01/16/18 19:05 INR 1.1 01/16/18 19:05 APTT 31 SECONDS (21-34) 01/16/18 19:05 - Constitutional Appears: Well - Head Exam Head Exam: ATRAUMATIC, NORMAL INSPECTION, NORMOCEPHALIC - Eye Exam Eye Exam: EOMI, Normal appearance, PERRL Pupil Exam: NORMAL ACCOMODATION, PERRL - ENT Exam ENT Exam: Mucous Membranes Moist, Normal Exam - Neck Exam Neck Exam: Full ROM, Normal Inspection. absent: Lymphadenopathy - Respiratory Exam Respiratory Exam: Decreased Breath Sounds - Cardiovascular Exam Cardiovascular Exam: REGULAR RHYTHM, +S1, +S2 - GI/Abdominal Exam GI & Abdominal Exam: Soft, Diminished Bowel Sounds - Rectal Exam Rectal Exam: Deferred - Neurological Exam Neurological Exam: Alert, Awake Assessment and Plan (1) Change in mental status Status: Acute (2) Chest pain Status: Acute (3) Hypoxia Status: Acute (4) Acute ST elevation myocardial infarction (STEMI) Status: Acute (5) Acute encephalopathy Status: Acute (6) Acute posterior epistaxis Status: Acute (7) Adjustment disorder Status: Acute (8) Angioedema Status: Acute (9) Bronchitis Status: Acute (10) Chronic congestive heart failure Status: Acute (11) Congestive heart failure Status: Acute (12) DVT prophylaxis Status: Acute (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, managed as type 2 Status: Acute (14) Dizziness Status: Acute (15) Dyspnea Status: Acute (16) Dyspnea Status: Acute (17) Dyspnea Status: Acute (18) Elevated troponin I level Status: Acute (19) Episodic confusion Status: Acute (20) H/O acute myocardial infarction Status: Acute (21) H/O: CVA (cerebrovascular accident) Status: Acute (22) Headache Status: Acute (23) History of aortic valve replacement Status: Acute (24) History of depression Status: Acute (25) History of gastroesophageal reflux (GERD) Status: Acute (26) History of mitral valve replacement Status: Acute (27) History of pacemaker Status: Acute (28) History of peripheral neuropathy Status: Acute (29) Hyperglycemia Status: Acute (30) Hyperglycemia Status: Acute (31) Hyperkalemia Status: Acute (32) Hypotension Status: Acute (33) Microscopic hematuria Status: Acute (34) Moderate major depression, single episode Status: Acute (35) NSTEMI (non-ST elevated myocardial infarction) Status: Acute (36) Nasal congestion Status: Acute (37) Near syncope Status: Acute (38) Near syncope Status: Acute (39) Nontransmural infarction Status: Acute (40) Pleural effusion Status: Acute (41) Pneumonia Status: Acute (42) Prophylactic measure Status: Acute (43) Prophylactic measure Status: Acute (44) Right temporal lobe infarction Status: Acute (45) S/P CABG (coronary artery bypass graft) Status: Acute (46) ST elevation (STEMI) myocardial infarction involving other coronary artery of inferior wall Status: Acute (47) Sepsis Status: Acute (48) Sinusitis Status: Acute (49) Sinusitis Status: Acute (50) Staphylococcus aureus bacteremia Status: Acute (51) TIA (transient ischemic attack) Status: Acute (52) Tongue swelling Status: Acute (53) CAD (coronary artery disease) of artery bypass graft Status: Chronic (54) Diabetes Status: Chronic (55) Hypertension Status: Chronic - Assessment and Plan (Free Text) Plan: case reviewed and discussed with cardio and pulm MD meds reviewed rafa mx as ordered d/c planning heart healthy diet f/u outpt as instructed labs prn
[2018-01-18 17:01] LABS: ABG ALLEN TEST P; ARTERIAL BLOOD GAS HCO3 23.3 mmol/L (21-28); ARTERIAL BLOOD GAS HEMOGLOBIN 10.6 g/dL (11.7-17.4); ARTERIAL BLOOD GAS O2 SAT 73.2 % (95-98); ARTERIAL BLOOD GAS PCO2 50 mm/Hg (35-45); ARTERIAL BLOOD GAS PH 7.31 (7.35-7.45); ARTERIAL BLOOD GAS PO2 39 mm/Hg (80-100); ARTERIAL BLOOD GAS TCO2 26.7 mmol/L (22-28)
[2018-01-19] MEDS: Albuterol-Ipratrop 3 mg / 0.5 (3 ml) UD INH SCH ×4 (01:08→20:10)
[2018-01-19] MEDS: (Novolog) Insulin Aspart, Recombinant 100 u/ml 10 ml vial SC SCH ×4 (07:55→21:34)
[2018-01-19] MEDS: Enoxaparin 60 mg Syringe SC SCH ×2 (09:28→21:35)
--- NOTE | 2018-01-19 12:50 | CP.PCM.PN ---
Subjective - Date & Time of Evaluation Date of Evaluation: 01/19/18 Time of Evaluation: 12:35 - Subjective Subjective: patient is currently not in the room. has dilated cardiomyopathy, EF 20-25%. Patient has new severe LV dsyfunction. does not qualify for AICD at this time. Recommend [employer], then discharge. reevaluate LV function in 3 months and consider AICD. Objective - Vital Signs/Intake and Output Vital Signs (last 24 hours): Temp Pulse Resp BP Pulse Ox 97.2 F L 63 20 134/86 98 01/19/18 08:59 01/19/18 08:59 01/19/18 08:59 01/19/18 09:28 01/19/18 08:59 Intake and Output: 01/19/18 01/19/18 06:59 18:59 Intake Total 200 Output Total 300 Balance -100 - Medications Medications: Current Medications Albuterol/Ipratropium (Duoneb 3 Mg/0.5 Mg (3 Ml) Ud) 3 ml INH RQ6 [facility] Last Admin: 01/19/18 07:40 Dose: 3 ml Aspirin (Ecotrin) 81 mg PO DAILY [facility] Last Admin: 01/19/18 09:27 Dose: 81 mg Carvedilol (Coreg) 12.5 mg PO BID [facility] Last Admin: 01/19/18 09:26 Dose: 12.5 mg Clopidogrel Bisulfate (Plavix) 75 mg PO DAILY [facility] Last Admin: 01/19/18 09:26 Dose: 75 mg Enoxaparin Sodium (Lovenox) 60 mg SC Q12H [facility] Last Admin: 01/19/18 09:28 Dose: 60 mg Famotidine (Pepcid) 20 mg PO BID [facility] Last Admin: 01/19/18 09:27 Dose: 20 mg Furosemide (Lasix) 20 mg IVP DAILY [facility] Last Admin: 01/19/18 09:28 Dose: 20 mg Gabapentin (Neurontin) 400 mg PO TID [facility] Last Admin: 01/18/18 17:35 Dose: 400 mg Glimepiride (Amaryl) 4 mg PO DAILY [facility] Last Admin: 01/19/18 09:27 Dose: 4 mg Insulin Aspart (Novolog) 0 unit SC ACHS [facility] PRN Reason: Protocol Last Admin: 01/19/18 07:55 Dose: 1 unit Lisinopril (Zestril) 20 mg PO DAILY [facility] Last Admin: 01/19/18 09:28 Dose: 20 mg Metformin HCl (Glucophage) 1,000 mg PO BID [facility] Last Admin: 01/19/18 09:26 Dose: 1,000 mg Rosuvastatin Calcium (Crestor) 10 mg PO HS [facility] Last Admin: 01/18/18 21:45 Dose: 10 mg - Labs Labs: 01/16/18 18:47 01/16/18 18:47 PT 12.2 SECONDS (9.7-12.2) 01/16/18 19:05 INR 1.1 01/16/18 19:05 APTT 31 SECONDS (21-34) 01/16/18 19:05 Assessment and Plan (1) Chest pain Status: Acute (2) Chronic congestive heart failure Status: Acute (3) CAD (coronary artery disease) of artery bypass graft Status: Chronic
--- NOTE | 2018-01-19 14:46 | CP.PCM.PN ---
Subjective - Date & Time of Evaluation Date of Evaluation: 01/19/18 Time of Evaluation: 11:00 - Subjective Subjective: clinically same Objective - Vital Signs/Intake and Output Vital Signs (last 24 hours): Temp Pulse Resp BP Pulse Ox 97.2 F L 63 20 134/86 98 01/19/18 08:59 01/19/18 08:59 01/19/18 08:59 01/19/18 09:28 01/19/18 08:59 Intake and Output: 01/19/18 01/19/18 06:59 18:59 Intake Total 200 Output Total 300 Balance -100 - Medications Medications: Current Medications Albuterol/Ipratropium (Duoneb 3 Mg/0.5 Mg (3 Ml) Ud) 3 ml INH RQ6 [facility] Last Admin: 01/19/18 13:14 Dose: 3 ml Aspirin (Ecotrin) 81 mg PO DAILY [facility] Last Admin: 01/19/18 09:27 Dose: 81 mg Carvedilol (Coreg) 12.5 mg PO BID [facility] Last Admin: 01/19/18 09:26 Dose: 12.5 mg Clopidogrel Bisulfate (Plavix) 75 mg PO DAILY [facility] Last Admin: 01/19/18 09:26 Dose: 75 mg Enoxaparin Sodium (Lovenox) 60 mg SC Q12H [facility] Last Admin: 01/19/18 09:28 Dose: 60 mg Famotidine (Pepcid) 20 mg PO BID [facility] Last Admin: 01/19/18 09:27 Dose: 20 mg Furosemide (Lasix) 20 mg IVP DAILY [facility] Last Admin: 01/19/18 09:28 Dose: 20 mg Gabapentin (Neurontin) 400 mg PO TID [facility] Last Admin: 01/19/18 13:53 Dose: 400 mg Glimepiride (Amaryl) 4 mg PO DAILY [facility] Last Admin: 01/19/18 09:27 Dose: 4 mg Insulin Aspart (Novolog) 0 unit SC [facility] PRN Reason: Protocol Last Admin: 01/19/18 13:54 Dose: Not Given Lisinopril (Zestril) 20 mg PO DAILY [facility] Last Admin: 01/19/18 09:28 Dose: 20 mg Metformin HCl (Glucophage) 1,000 mg PO BID [facility] Last Admin: 01/19/18 09:26 Dose: 1,000 mg Rosuvastatin Calcium (Crestor) 10 mg PO HS [facility] Last Admin: 01/18/18 21:45 Dose: 10 mg - Labs Labs: 01/16/18 18:47 01/16/18 18:47 PT 12.2 SECONDS (9.7-12.2) 01/16/18 19:05 INR 1.1 01/16/18 19:05 APTT 31 SECONDS (21-34) 01/16/18 19:05 - Constitutional Appears: Well - Head Exam Head Exam: ATRAUMATIC, NORMAL INSPECTION, NORMOCEPHALIC - Eye Exam Eye Exam: EOMI, Normal appearance, PERRL Pupil Exam: NORMAL ACCOMODATION, PERRL - ENT Exam ENT Exam: Mucous Membranes Moist, Normal Exam - Neck Exam Neck Exam: Full ROM, Normal Inspection. absent: Lymphadenopathy - Respiratory Exam Respiratory Exam: Decreased Breath Sounds - Cardiovascular Exam Cardiovascular Exam: REGULAR RHYTHM, +S1, +S2 - GI/Abdominal Exam GI & Abdominal Exam: Soft, Diminished Bowel Sounds - Rectal Exam Rectal Exam: Deferred Assessment and Plan (1) Change in mental status Status: Acute (2) Chest pain Status: Acute (3) Hypoxia Status: Acute (4) Acute ST elevation myocardial infarction (STEMI) Status: Acute (5) Acute encephalopathy Status: Acute (6) Acute posterior epistaxis Status: Acute (7) Adjustment disorder Status: Acute (8) Angioedema Status: Acute (9) Bronchitis Status: Acute (10) Chronic congestive heart failure Status: Acute (11) Congestive heart failure Status: Acute (12) DVT prophylaxis Status: Acute (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, managed as type 2 Status: Acute (14) Dizziness Status: Acute (15) Dyspnea Status: Acute (16) Dyspnea Status: Acute (17) Dyspnea Status: Acute (18) Elevated troponin I level Status: Acute (19) Episodic confusion Status: Acute (20) H/O acute myocardial infarction Status: Acute (21) H/O: CVA (cerebrovascular accident) Status: Acute (22) Headache Status: Acute (23) History of aortic valve replacement Status: Acute (24) History of depression Status: Acute (25) History of gastroesophageal reflux (GERD) Status: Acute (26) History of mitral valve replacement Status: Acute (27) History of pacemaker Status: Acute (28) History of peripheral neuropathy Status: Acute (29) Hyperglycemia Status: Acute (30) Hyperglycemia Status: Acute (31) Hyperkalemia Status: Acute (32) Hypotension Status: Acute (33) Microscopic hematuria Status: Acute (34) Moderate major depression, single episode Status: Acute (35) NSTEMI (non-ST elevated myocardial infarction) Status: Acute (36) Nasal congestion Status: Acute (37) Near syncope Status: Acute (38) Near syncope Status: Acute (39) Nontransmural infarction Status: Acute (40) Pleural effusion Status: Acute (41) Pneumonia Status: Acute (42) Prophylactic measure Status: Acute (43) Prophylactic measure Status: Acute (44) Right temporal lobe infarction Status: Acute (45) S/P CABG (coronary artery bypass graft) Status: Acute (46) ST elevation (STEMI) myocardial infarction involving other coronary artery of inferior wall Status: Acute (47) Sepsis Status: Acute (48) Sinusitis Status: Acute (49) Sinusitis Status: Acute (50) Staphylococcus aureus bacteremia Status: Acute (51) TIA (transient ischemic attack) Status: Acute (52) Tongue swelling Status: Acute (53) CAD (coronary artery disease) of artery bypass graft Status: Chronic (54) Diabetes Status: Chronic (55) Hypertension Status: Chronic
--- NOTE | 2018-01-19 20:31 | CP.PCM.PN ---
Subjective - Date & Time of Evaluation Date of Evaluation: 01/19/18 Time of Evaluation: 18:50 - Subjective Subjective: the patient seen and examined Sitting comfortably in no distress Patient states breathing is much improved On 2 L nasal cannula Unable to get ABG Patient is on home oxygen Pro calcitonin level is normal Stable from pulmonary standpoint Management as per cardiology Objective - Vital Signs/Intake and Output Vital Signs (last 24 hours): Temp Pulse Resp BP Pulse Ox 97.9 F 59 L 20 131/82 94 L 01/19/18 15:49 01/19/18 16:00 01/19/18 15:49 01/19/18 18:02 01/19/18 15:49 - Medications Medications: Current Medications Albuterol/Ipratropium (Duoneb 3 Mg/0.5 Mg (3 Ml) Ud) 3 ml INH RQ6 [facility] Last Admin: 01/19/18 20:10 Dose: 3 ml Aspirin (Ecotrin) 81 mg PO DAILY [facility] Last Admin: 01/19/18 09:27 Dose: 81 mg Carvedilol (Coreg) 12.5 mg PO BID [facility] Last Admin: 01/19/18 18:02 Dose: 12.5 mg Clopidogrel Bisulfate (Plavix) 75 mg PO DAILY [facility] Last Admin: 01/19/18 09:26 Dose: 75 mg Enoxaparin Sodium (Lovenox) 60 mg SC Q12H [facility] Last Admin: 01/19/18 09:28 Dose: 60 mg Famotidine (Pepcid) 20 mg PO BID [facility] Last Admin: 01/19/18 18:01 Dose: 20 mg Furosemide (Lasix) 20 mg IVP DAILY [facility] Last Admin: 01/19/18 09:28 Dose: 20 mg Gabapentin (Neurontin) 400 mg PO TID [facility] Last Admin: 01/19/18 18:01 Dose: 400 mg Glimepiride (Amaryl) 4 mg PO DAILY [facility] Last Admin: 01/19/18 09:27 Dose: 4 mg Insulin Aspart (Novolog) 0 unit SC ACHS [facility] PRN Reason: Protocol Last Admin: 01/19/18 18:00 Dose: 2 unit Lisinopril (Zestril) 20 mg PO DAILY [facility] Last Admin: 01/19/18 09:28 Dose: 20 mg Metformin HCl (Glucophage) 1,000 mg PO BID [facility] Last Admin: 01/19/18 18:01 Dose: 1,000 mg Rosuvastatin Calcium (Crestor) 10 mg PO HS [facility] Last Admin: 01/18/18 21:45 Dose: 10 mg - Labs Labs: 01/16/18 18:47 01/16/18 18:47 PT 12.2 SECONDS (9.7-12.2) 01/16/18 19:05 INR 1.1 01/16/18 19:05 APTT 31 SECONDS (21-34) 01/16/18 19:05 Assessment and Plan (1) Hypoxia Status: Acute
[2018-01-20] MEDS: Albuterol-Ipratrop 3 mg / 0.5 (3 ml) UD INH SCH ×4 (01:15→19:23)
[2018-01-20] MEDS: (Novolog) Insulin Aspart, Recombinant 100 u/ml 10 ml vial SC SCH ×4 (08:38→21:06)
[2018-01-20] MEDS: Enoxaparin 60 mg Syringe SC SCH ×2 (09:34→21:15)
[2018-01-20 16:09] VITALS: RESP 20
--- NOTE | 2018-01-20 17:51 | CP.PCM.PN ---
Subjective - Date & Time of Evaluation Date of Evaluation: 01/20/18 Time of Evaluation: 10:00 - Subjective Subjective: clinically same Objective - Vital Signs/Intake and Output Vital Signs (last 24 hours): Temp Pulse Resp BP Pulse Ox 98.3 F 62 20 122/79 100 01/20/18 15:55 01/20/18 17:44 01/20/18 15:55 01/20/18 17:44 01/20/18 15:55 Intake and Output: 01/20/18 01/20/18 06:59 18:59 Intake Total 240 500 Balance 240 500 - Medications Medications: Current Medications Albuterol/Ipratropium (Duoneb 3 Mg/0.5 Mg (3 Ml) Ud) 3 ml INH RQ6 [facility] Last Admin: 01/20/18 13:11 Dose: 3 ml Aspirin (Ecotrin) 81 mg PO DAILY [facility] Last Admin: 01/20/18 09:35 Dose: 81 mg Carvedilol (Coreg) 12.5 mg PO BID [facility] Last Admin: 01/20/18 17:41 Dose: 12.5 mg Clopidogrel Bisulfate (Plavix) 75 mg PO DAILY [facility] Last Admin: 01/20/18 09:35 Dose: 75 mg Enoxaparin Sodium (Lovenox) 60 mg SC Q12H [facility] Last Admin: 01/20/18 09:34 Dose: 60 mg Famotidine (Pepcid) 20 mg PO BID [facility] Last Admin: 01/20/18 17:41 Dose: 20 mg Furosemide (Lasix) 20 mg IVP DAILY [facility] Last Admin: 01/20/18 09:34 Dose: 20 mg Gabapentin (Neurontin) 400 mg PO TID [facility] Last Admin: 01/20/18 17:40 Dose: 400 mg Glimepiride (Amaryl) 4 mg PO DAILY [facility] Last Admin: 01/20/18 09:35 Dose: 4 mg Insulin Aspart (Novolog) 0 unit SC [facility] PRN Reason: Protocol Last Admin: 01/20/18 17:39 Dose: 1 unit Lisinopril (Zestril) 20 mg PO DAILY [facility] Last Admin: 01/20/18 09:35 Dose: 20 mg Metformin HCl (Glucophage) 1,000 mg PO BID [facility] Last Admin: 01/20/18 17:41 Dose: 1,000 mg Rosuvastatin Calcium (Crestor) 10 mg PO [facility] Last Admin: 01/19/18 21:34 Dose: 10 mg - Labs Labs: 01/16/18 18:47 01/16/18 18:47 PT 12.2 SECONDS (9.7-12.2) 01/16/18 19:05 INR 1.1 01/16/18 19:05 APTT 31 SECONDS (21-34) 01/16/18 19:05 - Constitutional Appears: Well - Head Exam Head Exam: ATRAUMATIC, NORMAL INSPECTION, NORMOCEPHALIC - Eye Exam Eye Exam: EOMI, Normal appearance, PERRL Pupil Exam: NORMAL ACCOMODATION, PERRL - ENT Exam ENT Exam: Mucous Membranes Moist, Normal Exam - Neck Exam Neck Exam: Full ROM, Normal Inspection. absent: Lymphadenopathy - Respiratory Exam Respiratory Exam: Decreased Breath Sounds - Cardiovascular Exam Cardiovascular Exam: REGULAR RHYTHM, +S1, +S2 - GI/Abdominal Exam GI & Abdominal Exam: Soft, Diminished Bowel Sounds - Rectal Exam Rectal Exam: Deferred Assessment and Plan (1) Change in mental status Status: Acute (2) Chest pain Status: Acute (3) Hypoxia Status: Acute (4) Acute ST elevation myocardial infarction (STEMI) Status: Acute (5) Acute encephalopathy Status: Acute (6) Acute posterior epistaxis Status: Acute (7) Adjustment disorder Status: Acute (8) Angioedema Status: Acute (9) Bronchitis Status: Acute (10) Chronic congestive heart failure Status: Acute (11) Congestive heart failure Status: Acute (12) DVT prophylaxis Status: Acute (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, managed as type 2 Status: Acute (14) Dizziness Status: Acute (15) Dyspnea Status: Acute (16) Dyspnea Status: Acute (17) Dyspnea Status: Acute (18) Elevated troponin I level Status: Acute (19) Episodic confusion Status: Acute (20) H/O acute myocardial infarction Status: Acute (21) H/O: CVA (cerebrovascular accident) Status: Acute (22) Headache Status: Acute (23) History of aortic valve replacement Status: Acute (24) History of depression Status: Acute (25) History of gastroesophageal reflux (GERD) Status: Acute (26) History of mitral valve replacement Status: Acute (27) History of pacemaker Status: Acute (28) History of peripheral neuropathy Status: Acute (29) Hyperglycemia Status: Acute (30) Hyperglycemia Status: Acute (31) Hyperkalemia Status: Acute (32) Hypotension Status: Acute (33) Microscopic hematuria Status: Acute (34) Moderate major depression, single episode Status: Acute (35) NSTEMI (non-ST elevated myocardial infarction) Status: Acute (36) Nasal congestion Status: Acute (37) Near syncope Status: Acute (38) Near syncope Status: Acute (39) Nontransmural infarction Status: Acute (40) Pleural effusion Status: Acute (41) Pneumonia Status: Acute (42) Prophylactic measure Status: Acute (43) Prophylactic measure Status: Acute (44) Right temporal lobe infarction Status: Acute (45) S/P CABG (coronary artery bypass graft) Status: Acute (46) ST elevation (STEMI) myocardial infarction involving other coronary artery of inferior wall Status: Acute (47) Sepsis Status: Acute (48) Sinusitis Status: Acute (49) Sinusitis Status: Acute (50) Staphylococcus aureus bacteremia Status: Acute (51) TIA (transient ischemic attack) Status: Acute (52) Tongue swelling Status: Acute (53) CAD (coronary artery disease) of artery bypass graft Status: Chronic (54) Diabetes Status: Chronic (55) Hypertension Status: Chronic
[2018-01-21] MEDS: Albuterol-Ipratrop 3 mg / 0.5 (3 ml) UD INH SCH ×4 (01:05→19:46)
[2018-01-21] MEDS: (Novolog) Insulin Aspart, Recombinant 100 u/ml 10 ml vial SC SCH ×4 (07:51→22:24)
--- NOTE | 2018-01-21 08:23 | CP.PCM.PN ---
Subjective - Date & Time of Evaluation Date of Evaluation: 01/21/18 Time of Evaluation: 08:20 - Subjective Subjective: patient feels better. fitted for Lifevest. Objective - Vital Signs/Intake and Output Vital Signs (last 24 hours): Temp Pulse Resp BP Pulse Ox 97.9 F 67 20 132/83 93 L 01/21/18 07:00 01/21/18 07:00 01/21/18 07:00 01/21/18 07:00 01/21/18 07:00 Intake and Output: 01/21/18 01/21/18 06:59 18:59 Intake Total 620 Output Total 600 Balance 20 - Medications Medications: Current Medications Albuterol/Ipratropium (Duoneb 3 Mg/0.5 Mg (3 Ml) Ud) 3 ml INH RQ6 [facility] Last Admin: 01/21/18 01:05 Dose: Not Given Aspirin (Ecotrin) 81 mg PO DAILY [facility] Last Admin: 01/20/18 09:35 Dose: 81 mg Carvedilol (Coreg) 12.5 mg PO BID [facility] Last Admin: 01/20/18 17:41 Dose: 12.5 mg Clopidogrel Bisulfate (Plavix) 75 mg PO DAILY [facility] Last Admin: 01/20/18 09:35 Dose: 75 mg Enoxaparin Sodium (Lovenox) 60 mg SC Q12H [facility] Last Admin: 01/20/18 21:15 Dose: 60 mg Famotidine (Pepcid) 20 mg PO BID [facility] Last Admin: 01/20/18 17:41 Dose: 20 mg Furosemide (Lasix) 20 mg IVP DAILY [facility] Last Admin: 01/20/18 09:34 Dose: 20 mg Gabapentin (Neurontin) 400 mg PO TID [facility] Last Admin: 01/20/18 17:40 Dose: 400 mg Glimepiride (Amaryl) 4 mg PO DAILY [facility] Last Admin: 01/20/18 09:35 Dose: 4 mg Insulin Aspart (Novolog) 0 unit SC [facility] PRN Reason: Protocol Last Admin: 01/21/18 07:51 Dose: Not Given Lisinopril (Zestril) 20 mg PO DAILY [facility] Last Admin: 01/20/18 09:35 Dose: 20 mg Metformin HCl (Glucophage) 1,000 mg PO BID [facility] Last Admin: 01/20/18 17:41 Dose: 1,000 mg Rosuvastatin Calcium (Crestor) 10 mg PO HS [facility] Last Admin: 01/20/18 21:15 Dose: 10 mg - Labs Labs: 01/16/18 18:47 01/16/18 18:47 PT 12.2 SECONDS (9.7-12.2) 01/16/18 19:05 INR 1.1 01/16/18 19:05 APTT 31 SECONDS (21-34) 01/16/18 19:05 - Constitutional Appears: Non-toxic - Head Exam Head Exam: NORMAL INSPECTION - Eye Exam Eye Exam: Normal appearance - ENT Exam ENT Exam: Mucous Membranes Moist - Neck Exam Neck Exam: Full ROM - Respiratory Exam Respiratory Exam: NORMAL BREATHING PATTERN - Cardiovascular Exam Cardiovascular Exam: REGULAR RHYTHM - GI/Abdominal Exam GI & Abdominal Exam: Normal Bowel Sounds - Rectal Exam Rectal Exam: Deferred - Extremities Exam Extremities Exam: Pedal Edema - Back Exam Back Exam: NORMAL INSPECTION - Neurological Exam Neurological Exam: Alert, Oriented x3 - Psychiatric Exam Psychiatric exam: Normal Affect - Skin Skin Exam: Normal Color Assessment and Plan (1) Chronic congestive heart failure Assessment & Plan: severe LV dysfunction. FItted for Lifevest. continue medical tehrapy. reevaluation of LV function in 3 months to assess whether patient is candidate for AICD. Status: Acute (2) CAD (coronary artery disease) of artery bypass graft Assessment & Plan: ASA therapy Status: Chronic
[2018-01-21] MEDS: Enoxaparin 60 mg Syringe SC SCH ×2 (10:11→21:39)
--- NOTE | 2018-01-21 14:09 | CP.PCM.PN ---
<Padilla Gore - Last Filed: 01/21/18 14:04> Subjective - Date & Time of Evaluation Date of Evaluation: 01/21/18 Time of Evaluation: 14:04 - Subjective Subjective: Progress Note for Dr. Lux's Service Pt seen and examined at bedside. He states he is feeling better. He was fitted by a lifevest but is not wearing it right now because he is on telemetry. He has the life vest at bedside. Objective - Vital Signs/Intake and Output Vital Signs (last 24 hours): Temp Pulse Resp BP Pulse Ox 97.9 F 65 20 129/85 93 L 01/21/18 07:00 01/21/18 07:55 01/21/18 07:00 01/21/18 10:00 01/21/18 07:00 Intake and Output: 01/21/18 01/21/18 06:59 18:59 Intake Total 620 Output Total 600 Balance 20 - Medications Medications: Current Medications Albuterol/Ipratropium (Duoneb 3 Mg/0.5 Mg (3 Ml) Ud) 3 ml INH RQ6 [facility] Last Admin: 01/21/18 13:15 Dose: 3 ml Aspirin (Ecotrin) 81 mg PO DAILY [facility] Last Admin: 01/21/18 10:00 Dose: 81 mg Carvedilol (Coreg) 12.5 mg PO BID [facility] Last Admin: 01/21/18 09:59 Dose: 12.5 mg Clopidogrel Bisulfate (Plavix) 75 mg PO DAILY [facility] Last Admin: 01/21/18 10:00 Dose: 75 mg Enoxaparin Sodium (Lovenox) 60 mg SC Q12H [facility] Last Admin: 01/21/18 10:11 Dose: 60 mg Famotidine (Pepcid) 20 mg PO BID [facility] Last Admin: 01/21/18 09:59 Dose: 20 mg Furosemide (Lasix) 20 mg IVP DAILY [facility] Last Admin: 01/21/18 10:00 Dose: 20 mg Gabapentin (Neurontin) 400 mg PO TID [facility] Last Admin: 01/21/18 13:04 Dose: 400 mg Glimepiride (Amaryl) 4 mg PO DAILY [facility] Last Admin: 01/21/18 10:00 Dose: 4 mg Insulin Aspart (Novolog) 0 unit SC [facility] PRN Reason: Protocol Last Admin: 01/21/18 12:30 Dose: 2 unit Lisinopril (Zestril) 20 mg PO DAILY [facility] Last Admin: 01/21/18 10:00 Dose: 20 mg Metformin HCl (Glucophage) 1,000 mg PO BID [facility] Last Admin: 01/21/18 09:59 Dose: 1,000 mg Rosuvastatin Calcium (Crestor) 10 mg PO HS [facility] Last Admin: 01/20/18 21:15 Dose: 10 mg - Labs Labs: 01/16/18 18:47 01/16/18 18:47 PT 12.2 SECONDS (9.7-12.2) 01/16/18 19:05 INR 1.1 01/16/18 19:05 APTT 31 SECONDS (21-34) 01/16/18 19:05 - Constitutional Appears: No Acute Distress - Head Exam Head Exam: ATRAUMATIC, NORMOCEPHALIC - Eye Exam Eye Exam: EOMI, Normal appearance - ENT Exam ENT Exam: Mucous Membranes Moist - Respiratory Exam Respiratory Exam: Clear to Ausculation Bilateral. absent: Rales, Rhonchi, Wheezes - Cardiovascular Exam Cardiovascular Exam: REGULAR RHYTHM - GI/Abdominal Exam GI & Abdominal Exam: Soft. absent: Tenderness - Neurological Exam Neurological Exam: Alert, Awake, Oriented x3 - Psychiatric Exam Psychiatric exam: Normal Affect, Normal Mood - Skin Skin Exam: Dry, Warm Assessment and Plan - Assessment and Plan (Free Text) Plan: Chest pain Consult placed to Dr. Montanez- joel appreciated Stress test performed 01/17- large areas of infarction without reversible ischemia; severe LV dysfunction Recommending medical therapy with ASA and addition of Plavix 75 mg daily ( started 01/18/18) Fitted for lifevest follow up in 3months for AICD ECHO 01/17 Severely reduced LV systolic function with EF of 20-25% Trop 0.0260->0.0370 This patient has a hx of CAD and known occlusion of stents as per cardio CAD s/p CABG AVR/MVR ASA 81mg PO daily Plavix 75mg PO daily Hypoxia -CXR on 01/16: Prominent increased consolidative changes seen within the left mid to lower lung zone concerning for infiltrate and or atelectasis. Small left pleural effusion. Venous congestion. Right hilar prominence. Cardiomegaly. -D-dimer on admission: 895 -VQ scan on 01/16: No findings to suggest pulmonary embolism -Continue supplemental oxygen to maintain saturation over 95% -Continue nebulizer treatment q6hrs CHF- combined Consult placed to Dr. Montanez- joel appreciated Severe LV dysfunction. Previous echocardiogram in november EF 40-45%. Patient has a PPM. He will need reevlauation of EF in 3 months. If persistent LV dsfunction recommend upgrade to AICD. Consider the addition of Entresto. Echo 01/17- As above Lasix 20mg IVP daily CAD s/p CABG AVR/MVR s/p cardiac cath with stents complicated by occlusion ASA 81mg PO daily Plavix 75mg PO daily Diabetes complicated by neuropathy Glimeperide 4mg PO daily Metformin 1000mg PO BID [facility] Gabapentin 400mg PO TID Lisinopril 20mg PO daily Crestor 10mg PO QHS Prophylaxis Lovenox 60mg SC q12hrs Pepcid 20mg PO BID Case discussed with Dr. Lux All management as per Dr. Lux <Alison Lux S - Last Filed: 01/21/18 22:02> Objective - Vital Signs/Intake and Output Vital Signs (last 24 hours): Temp Pulse Resp BP Pulse Ox 97.3 F L 63 20 130/80 95 01/21/18 15:00 01/21/18 16:00 01/21/18 15:00 01/21/18 17:52 01/21/18 15:00 - Medications Medications: Current Medications Albuterol/Ipratropium (Duoneb 3 Mg/0.5 Mg (3 Ml) Ud) 3 ml INH RQ6 [facility] Last Admin: 01/21/18 19:46 Dose: 3 ml Aspirin (Ecotrin) 81 mg PO DAILY [facility] Last Admin: 01/21/18 10:00 Dose: 81 mg Carvedilol (Coreg) 12.5 mg PO BID [facility] Last Admin: 01/21/18 17:52 Dose: 12.5 mg Clopidogrel Bisulfate (Plavix) 75 mg PO DAILY [facility] Last Admin: 01/21/18 10:00 Dose: 75 mg Enoxaparin Sodium (Lovenox) 60 mg SC Q12H [facility] Last Admin: 01/21/18 21:39 Dose: 60 mg Famotidine (Pepcid) 20 mg PO BID [facility] Last Admin: 01/21/18 17:51 Dose: 20 mg Furosemide (Lasix) 20 mg IVP DAILY [facility] Last Admin: 01/21/18 10:00 Dose: 20 mg Gabapentin (Neurontin) 400 mg PO TID [facility] Last Admin: 01/21/18 17:51 Dose: 400 mg Glimepiride (Amaryl) 4 mg PO DAILY [facility] Last Admin: 01/21/18 10:00 Dose: 4 mg Insulin Aspart (Novolog) 0 unit SC ACHS [facility] PRN Reason: Protocol Last Admin: 01/21/18 17:33 Dose: Not Given Lisinopril (Zestril) 20 mg PO DAILY [facility] Last Admin: 01/21/18 10:00 Dose: 20 mg Metformin HCl (Glucophage) 1,000 mg PO BID [facility] Last Admin: 01/21/18 17:51 Dose: 1,000 mg Rosuvastatin Calcium (Crestor) 10 mg PO HS [facility] Last Admin: 01/21/18 21:39 Dose: 10 mg - Labs Labs: 01/16/18 18:47 01/16/18 18:47 PT 12.2 SECONDS (9.7-12.2) 01/16/18 19:05 INR 1.1 01/16/18 19:05 APTT 31 SECONDS (21-34) 01/16/18 19:05 Assessment and Plan (1) Change in mental status Status: Acute (2) Chest pain Status: Acute (3) Hypoxia Status: Acute (4) Acute ST elevation myocardial infarction (STEMI) Status: Acute (5) Acute encephalopathy Status: Acute (6) Acute posterior epistaxis Status: Acute (7) Adjustment disorder Status: Acute (8) Angioedema Status: Acute (9) Bronchitis Status: Acute (10) Chronic congestive heart failure Status: Acute (11) Congestive heart failure Status: Acute (12) DVT prophylaxis Status: Acute (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, managed as type 2 Status: Acute (14) Dizziness Status: Acute (15) Dyspnea Status: Acute (16) Dyspnea Status: Acute (17) Dyspnea Status: Acute (18) Elevated troponin I level Status: Acute (19) Episodic confusion Status: Acute (20) H/O acute myocardial infarction Status: Acute (21) H/O: CVA (cerebrovascular accident) Status: Acute (22) Headache Status: Acute (23) History of aortic valve replacement Status: Acute (24) History of depression Status: Acute (25) History of gastroesophageal reflux (GERD) Status: Acute (26) History of mitral valve replacement Status: Acute (27) History of pacemaker Status: Acute (28) History of peripheral neuropathy Status: Acute (29) Hyperglycemia Status: Acute (30) Hyperglycemia Status: Acute (31) Hyperkalemia Status: Acute (32) Hypotension Status: Acute (33) Microscopic hematuria Status: Acute (34) Moderate major depression, single episode Status: Acute (35) NSTEMI (non-ST elevated myocardial infarction) Status: Acute (36) Nasal congestion Status: Acute (37) Near syncope Status: Acute (38) Near syncope Status: Acute (39) Nontransmural infarction Status: Acute (40) Pleural effusion Status: Acute (41) Pneumonia Status: Acute (42) Prophylactic measure Status: Acute (43) Prophylactic measure Status: Acute (44) Right temporal lobe infarction Status: Acute (45) S/P CABG (coronary artery bypass graft) Status: Acute (46) ST elevation (STEMI) myocardial infarction involving other coronary artery of inferior wall Status: Acute (47) Sepsis Status: Acute (48) Sinusitis Status: Acute (49) Sinusitis Status: Acute (50) Staphylococcus aureus bacteremia Status: Acute (51) TIA (transient ischemic attack) Status: Acute (52) Tongue swelling Status: Acute (53) CAD (coronary artery disease) of artery bypass graft Status: Chronic (54) Diabetes Status: Chronic (55) Hypertension Status: Chronic Attending/Attestation - Attestation I have personally seen and examined this patient.: Yes I have fully participated in the care of the patient.: Yes I have reviewed all pertinent clinical information, including history, physical exam and plan: Yes Notes (Text): 01/21/18 22:02 case seen and d.w staff and resident, concurred with finding and management..
--- NOTE | 2018-01-21 16:08 | CP.PCM.PN ---
Subjective - Date & Time of Evaluation Date of Evaluation: 01/21/18 Time of Evaluation: 12:00 - Subjective Subjective: clinically same Objective - Vital Signs/Intake and Output Vital Signs (last 24 hours): Temp Pulse Resp BP Pulse Ox 97.9 F 65 20 129/85 93 L 01/21/18 07:00 01/21/18 07:55 01/21/18 07:00 01/21/18 10:00 01/21/18 07:00 Intake and Output: 01/21/18 01/21/18 06:59 18:59 Intake Total 620 Output Total 600 Balance 20 - Medications Medications: Current Medications Albuterol/Ipratropium (Duoneb 3 Mg/0.5 Mg (3 Ml) Ud) 3 ml INH RQ6 [facility] Last Admin: 01/21/18 13:15 Dose: 3 ml Aspirin (Ecotrin) 81 mg PO DAILY [facility] Last Admin: 01/21/18 10:00 Dose: 81 mg Carvedilol (Coreg) 12.5 mg PO BID [facility] Last Admin: 01/21/18 09:59 Dose: 12.5 mg Clopidogrel Bisulfate (Plavix) 75 mg PO DAILY [facility] Last Admin: 01/21/18 10:00 Dose: 75 mg Enoxaparin Sodium (Lovenox) 60 mg SC Q12H [facility] Last Admin: 01/21/18 10:11 Dose: 60 mg Famotidine (Pepcid) 20 mg PO BID [facility] Last Admin: 01/21/18 09:59 Dose: 20 mg Furosemide (Lasix) 20 mg IVP DAILY [facility] Last Admin: 01/21/18 10:00 Dose: 20 mg Gabapentin (Neurontin) 400 mg PO TID [facility] Last Admin: 01/21/18 13:04 Dose: 400 mg Glimepiride (Amaryl) 4 mg PO DAILY [facility] Last Admin: 01/21/18 10:00 Dose: 4 mg Insulin Aspart (Novolog) 0 unit SC [facility] PRN Reason: Protocol Last Admin: 01/21/18 12:30 Dose: 2 unit Lisinopril (Zestril) 20 mg PO DAILY [facility] Last Admin: 01/21/18 10:00 Dose: 20 mg Metformin HCl (Glucophage) 1,000 mg PO BID [facility] Last Admin: 01/21/18 09:59 Dose: 1,000 mg Rosuvastatin Calcium (Crestor) 10 mg PO HS [facility] Last Admin: 01/20/18 21:15 Dose: 10 mg - Labs Labs: 01/16/18 18:47 01/16/18 18:47 PT 12.2 SECONDS (9.7-12.2) 01/16/18 19:05 INR 1.1 01/16/18 19:05 APTT 31 SECONDS (21-34) 01/16/18 19:05 - Constitutional Appears: Well - Head Exam Head Exam: ATRAUMATIC, NORMAL INSPECTION, NORMOCEPHALIC - Eye Exam Eye Exam: EOMI, Normal appearance, PERRL Pupil Exam: NORMAL ACCOMODATION, PERRL - ENT Exam ENT Exam: Mucous Membranes Moist, Normal Exam - Neck Exam Neck Exam: Full ROM, Normal Inspection. absent: Lymphadenopathy - Respiratory Exam Respiratory Exam: Decreased Breath Sounds - Cardiovascular Exam Cardiovascular Exam: REGULAR RHYTHM, +S1, +S2 - GI/Abdominal Exam GI & Abdominal Exam: Soft, Diminished Bowel Sounds - Rectal Exam Rectal Exam: Deferred Assessment and Plan (1) Change in mental status Status: Acute (2) Chest pain Status: Acute (3) Hypoxia Status: Acute (4) Acute ST elevation myocardial infarction (STEMI) Status: Acute (5) Acute encephalopathy Status: Acute (6) Acute posterior epistaxis Status: Acute (7) Adjustment disorder Status: Acute (8) Angioedema Status: Acute (9) Bronchitis Status: Acute (10) Chronic congestive heart failure Status: Acute (11) Congestive heart failure Status: Acute (12) DVT prophylaxis Status: Acute (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, managed as type 2 Status: Acute (14) Dizziness Status: Acute (15) Dyspnea Status: Acute (16) Dyspnea Status: Acute (17) Dyspnea Status: Acute (18) Elevated troponin I level Status: Acute (19) Episodic confusion Status: Acute (20) H/O acute myocardial infarction Status: Acute (21) H/O: CVA (cerebrovascular accident) Status: Acute (22) Headache Status: Acute (23) History of aortic valve replacement Status: Acute (24) History of depression Status: Acute (25) History of gastroesophageal reflux (GERD) Status: Acute (26) History of mitral valve replacement Status: Acute (27) History of pacemaker Status: Acute (28) History of peripheral neuropathy Status: Acute (29) Hyperglycemia Status: Acute (30) Hyperglycemia Status: Acute (31) Hyperkalemia Status: Acute (32) Hypotension Status: Acute (33) Microscopic hematuria Status: Acute (34) Moderate major depression, single episode Status: Acute (35) NSTEMI (non-ST elevated myocardial infarction) Status: Acute (36) Nasal congestion Status: Acute (37) Near syncope Status: Acute (38) Near syncope Status: Acute (39) Nontransmural infarction Status: Acute (40) Pleural effusion Status: Acute (41) Pneumonia Status: Acute (42) Prophylactic measure Status: Acute (43) Prophylactic measure Status: Acute (44) Right temporal lobe infarction Status: Acute (45) S/P CABG (coronary artery bypass graft) Status: Acute (46) ST elevation (STEMI) myocardial infarction involving other coronary artery of inferior wall Status: Acute (47) Sepsis Status: Acute (48) Sinusitis Status: Acute (49) Sinusitis Status: Acute (50) Staphylococcus aureus bacteremia Status: Acute (51) TIA (transient ischemic attack) Status: Acute (52) Tongue swelling Status: Acute (53) CAD (coronary artery disease) of artery bypass graft Status: Chronic (54) Diabetes Status: Chronic (55) Hypertension Status: Chronic - Assessment and Plan (Free Text) Assessment: Patient's needs a LifeVest Cardiology follow-up Continue Coreg Continue lisinopril Continue Lasix Continue as Follow-up with the cardiology an outpatient Follow-up with the neurology as an outpatient Plan: Left intertrochanteric fracture -Hip x-ray showed left intertrochanteric comminuted fracture. No dislocation appreciated. -Orthopedic surgery consult, Dr. Desouza help appreciated -POD#5 s/p left hip Interlocking/intrameduallry emily for intertrochanteric L hip fx -cont VTE proph/PT/OT -f/u Dr. Desouza approx 10 days after discharge [phone] -stable to d/c -ortho stable for d/c to rehab -cont VTE proph/PT/OT -f/u Dr. Desouza approx 10 days after discharge [phone] -d/w Dr. Desouza, agrees with above -Planned for OR today -Cardiac clearance by cardiology -Percocet 5/325 1T PO q4hrs prn Difficulty of urination -Urinary straight cath prn, Bladder scan >200cc -Flomax 0.4mg po Prophylactic measures -Protonix 40mg po -Lovenox 40mg sc -Colace 100mg PO BID plan for d/c to rehab
--- NOTE | 2018-01-21 18:05 | CP.PCM.PN ---
Subjective - Date & Time of Evaluation Date of Evaluation: 01/21/18 Time of Evaluation: 09:00 - Subjective Subjective: Patient seen and examined at bedside today Resting with improved respiratory status On supplemental oxygen Reports feeling better than previous days Assessment/Plan: 1. Hypoxia -Most recent chest XR on 01/16: Prominent increased consolidative changes seen within the left mid to lower lung zone concerning for infiltrate and or atelectasis. Small left pleural effusion. Venous congestion. Right hilar prominence. Cardiomegaly. -Vital signs reviewed, saturation is stable with supplemental oxygen -Continue supplemental oxygen to maintain saturation over 95% -Continue nebulizer treatment -Pulmonology will sign off at this point -Recommend oxygen concentrator upon discharge 2. Elevated d-dimer -D-dimer on admission: 895 -VQ scan on 01/16: No findings to suggest pulmonary embolism. -Continue DVT prophylaxis 3. CHF -Fitted for lifevest -Stress test performed on 01/17 -Management per primary team and cardiology Objective - Vital Signs/Intake and Output Vital Signs (last 24 hours): Temp Pulse Resp BP Pulse Ox 97.3 F L 63 20 130/80 95 01/21/18 15:00 01/21/18 16:00 01/21/18 15:00 01/21/18 17:52 01/21/18 15:00 Intake and Output: 01/21/18 01/21/18 06:59 18:59 Intake Total 620 Output Total 600 Balance 20 - Medications Medications: Current Medications Albuterol/Ipratropium (Duoneb 3 Mg/0.5 Mg (3 Ml) Ud) 3 ml INH RQ6 [facility] Last Admin: 01/21/18 13:15 Dose: 3 ml Aspirin (Ecotrin) 81 mg PO DAILY [facility] Last Admin: 01/21/18 10:00 Dose: 81 mg Carvedilol (Coreg) 12.5 mg PO BID [facility] Last Admin: 01/21/18 17:52 Dose: 12.5 mg Clopidogrel Bisulfate (Plavix) 75 mg PO DAILY [facility] Last Admin: 01/21/18 10:00 Dose: 75 mg Enoxaparin Sodium (Lovenox) 60 mg SC Q12H [facility] Last Admin: 01/21/18 10:11 Dose: 60 mg Famotidine (Pepcid) 20 mg PO BID [facility] Last Admin: 01/21/18 17:51 Dose: 20 mg Furosemide (Lasix) 20 mg IVP DAILY [facility] Last Admin: 01/21/18 10:00 Dose: 20 mg Gabapentin (Neurontin) 400 mg PO TID [facility] Last Admin: 01/21/18 17:51 Dose: 400 mg Glimepiride (Amaryl) 4 mg PO DAILY [facility] Last Admin: 01/21/18 10:00 Dose: 4 mg Insulin Aspart (Novolog) 0 unit SC ACHS [facility] PRN Reason: Protocol Last Admin: 01/21/18 17:33 Dose: Not Given Lisinopril (Zestril) 20 mg PO DAILY [facility] Last Admin: 01/21/18 10:00 Dose: 20 mg Metformin HCl (Glucophage) 1,000 mg PO BID [facility] Last Admin: 01/21/18 17:51 Dose: 1,000 mg Rosuvastatin Calcium (Crestor) 10 mg PO HS [facility] Last Admin: 01/20/18 21:15 Dose: 10 mg - Labs Labs: 01/16/18 18:47 01/16/18 18:47 PT 12.2 SECONDS (9.7-12.2) 01/16/18 19:05 INR 1.1 01/16/18 19:05 APTT 31 SECONDS (21-34) 01/16/18 19:05 Assessment and Plan (1) Hypoxia Status: Acute
[2018-01-22] MEDS: Albuterol-Ipratrop 3 mg / 0.5 (3 ml) UD INH SCH (01:32)
[2018-01-22] MEDS: (Novolog) Insulin Aspart, Recombinant 100 u/ml 10 ml vial SC SCH ×3 (07:17→18:06)
[2018-01-22 07:41] LABS: BASO # 0.1 K/uL (0.0-0.2); BASO % 0.9 % (0.0-2.0); EOS # 0.4 K/uL (0.0-0.7); EOS % 4.5 % (0.0-4.0); HEMOGLOBIN 12.8 g/dL (12.0-18.0); LYMPH # 1.6 K/uL (1.0-4.3); MEAN CELL VOLUME 79.2 fL (80.0-94.0); MEAN CORPUSCULAR HEMOGLOBIN 24.8 pg (27.0-31.0); MEAN CORPUSCULAR HGB CONC 31.3 g/dL (33.0-37.0); MEAN PLATELET VOLUME 8.9 fL (7.2-11.7); MONO # 0.8 K/uL (0.0-0.8); MONO % 9.9 % (0.0-10.0); NEUT # 5.1 K/uL (1.8-7.0); NEUT % 64.7 % (50.0-75.0); NRBC % 0.1 % (0.0-2.0); RBC 5.17 Mil/uL (4.40-5.90); RED CELL DISTRIBUTION WIDTH 17.5 % (11.5-14.5); WHITE BLOOD COUNT 7.9 K/uL (4.8-10.8)
[2018-01-22 08:04] LABS: ALB/GLOB RATIO 1.2 (1.0-2.1); ALBUMIN 4.2 g/dL (3.5-5.0); ALT/SGPT 38 U/L (21-72); AST/SGOT 43 U/L (17-59); BLOOD UREA NITROGEN 22 mg/dL (9-20); CALCIUM 8.8 mg/dl (8.6-10.4); GFR AFRICAN-AMERICAN > 60; GFR NON-AFRICAN AMERICAN 55
[2018-01-22] MEDS: Enoxaparin 60 mg Syringe SC SCH (09:03)
--- NOTE | 2018-01-22 11:21 | CP.PCM.PN ---
<Padilla Gore S - Last Filed: 01/22/18 11:09> Subjective - Date & Time of Evaluation Date of Evaluation: 01/22/18 Time of Evaluation: 11:09 - Subjective Subjective: Progress Note for Dr. Lux's Service Pt seen and examined at bedside. He was fitted by a lifevest but the vest was not placed on the patient by the [facility] rep because the pt was on tele. The rep was contacted yesterday and it was made the clear that the patient could not reliably place the life vest on himself and that we would need the rep to return for placement. The patient had requested that his be present for this fitting so she could help him put the vest on. It was brought to light this morning that the pt's is in the ICU here herself as she is ill. This patient will likely need placement for care upon discharge. This information has been discussed with s/w to aid in d/c planning. No acute events reported overnight. Objective - Vital Signs/Intake and Output Vital Signs (last 24 hours): Temp Pulse Resp BP Pulse Ox 98.3 F 63 20 144/66 95 01/22/18 07:30 01/22/18 07:30 01/22/18 07:30 01/22/18 09:02 01/22/18 07:30 Intake and Output: 01/22/18 01/22/18 06:59 18:59 Intake Total 240 Balance 240 - Medications Medications: Current Medications Aspirin (Ecotrin) 81 mg PO DAILY [facility] Last Admin: 01/22/18 09:02 Dose: 81 mg Carvedilol (Coreg) 12.5 mg PO BID [facility] Last Admin: 01/22/18 09:02 Dose: 12.5 mg Clopidogrel Bisulfate (Plavix) 75 mg PO DAILY [facility] Last Admin: 01/22/18 09:03 Dose: 75 mg Enoxaparin Sodium (Lovenox) 60 mg SC Q12H [facility] Last Admin: 01/22/18 09:03 Dose: 60 mg Famotidine (Pepcid) 20 mg PO BID [facility] Last Admin: 01/22/18 09:03 Dose: 20 mg Furosemide (Lasix) 20 mg IVP DAILY [facility] Last Admin: 01/22/18 09:02 Dose: 20 mg Gabapentin (Neurontin) 400 mg PO TID [facility] Last Admin: 01/22/18 09:03 Dose: 400 mg Glimepiride (Amaryl) 4 mg PO DAILY [facility] Last Admin: 01/22/18 09:01 Dose: 4 mg Insulin Aspart (Novolog) 0 unit SC ACHS [facility] PRN Reason: Protocol Last Admin: 01/22/18 07:17 Dose: Not Given Lisinopril (Zestril) 20 mg PO DAILY [facility] Last Admin: 01/22/18 09:03 Dose: 20 mg Metformin HCl (Glucophage) 1,000 mg PO BID [facility] Last Admin: 01/22/18 09:02 Dose: 1,000 mg Rosuvastatin Calcium (Crestor) 10 mg PO HS [facility] Last Admin: 01/21/18 21:39 Dose: 10 mg - Labs Labs: 01/22/18 07:31 01/22/18 07:31 PT 12.2 SECONDS (9.7-12.2) 01/16/18 19:05 INR 1.1 01/16/18 19:05 APTT 31 SECONDS (21-34) 01/16/18 19:05 - Constitutional Appears: No Acute Distress - Head Exam Head Exam: ATRAUMATIC, NORMOCEPHALIC - Eye Exam Eye Exam: EOMI, Normal appearance - ENT Exam ENT Exam: Mucous Membranes Moist - Respiratory Exam Respiratory Exam: Clear to Ausculation Bilateral, NORMAL BREATHING PATTERN - Cardiovascular Exam Cardiovascular Exam: REGULAR RHYTHM, +S1, +S2 - GI/Abdominal Exam GI & Abdominal Exam: Soft. absent: Tenderness - Neurological Exam Neurological Exam: Alert, Awake, Oriented x3 - Psychiatric Exam Psychiatric exam: Normal Affect, Normal Mood - Skin Skin Exam: Dry, Warm Assessment and Plan - Assessment and Plan (Free Text) Plan: Chest pain Consult placed to Dr. Montanez- [id number] appreciated Stress test performed 01/17- large areas of infarction without reversible ischemia; severe LV dysfunction Recommending medical therapy with ASA and addition of Plavix 75 mg daily ( started 01/18/18) Fitted for lifevest follow up in 3months for AICD ECHO 01/17 Severely reduced LV systolic function with EF of 20-25% Trop 0.0260->0.0370 This patient has a hx of CAD and known occlusion of stents as per cardio CAD s/p CABG AVR/MVR ASA 81mg PO daily Plavix 75mg PO daily Coreg 12.5 mg PO BID Hypoxia -CXR on 01/16: Prominent increased consolidative changes seen within the left mid to lower lung zone concerning for infiltrate and or atelectasis. Small left pleural effusion. Venous congestion. Right hilar prominence. Cardiomegaly. -D-dimer on admission: 895 -VQ scan on 01/16: No findings to suggest pulmonary embolism -Continue supplemental oxygen to maintain saturation over 95% -Continue nebulizer treatment q6hrs CHF- combined Consult placed to Dr. Ambreen maldonado appreciated Severe LV dysfunction. Previous echocardiogram in november EF 40-45%. Patient has a PPM. He will need reevlauation of EF in 3 months. If persistent LV dsfunction recommend upgrade to AICD. Consider the addition of Entresto. Echo 01/17- As above Lasix 20mg IVP daily CAD s/p CABG AVR/MVR s/p cardiac cath with stents complicated by occlusion ASA 81mg PO daily Plavix 75mg PO daily Diabetes complicated by neuropathy Glimeperide 4mg PO daily Metformin 1000mg PO BID ISS Gabapentin 400mg PO TID Lisinopril 20mg PO daily Crestor 10mg PO QHS Prophylaxis Lovenox 60mg SC q12hrs Pepcid 20mg PO BID He was fitted by a lifevest but the vest was not placed on the patient by the [employer] rep because the pt was on tele. The rep was contacted yesterday and it was made the clear that the patient could not reliably place the life vest on himself and that we would need the rep to return for placement. The patient had requested that his be present for this fitting so she could help him put the vest on. It was brought to light this morning that the pt's is in the ICU here herself as she is ill. This patient will likely need placement for care upon discharge. This information has been discussed with s/w to aid in d/c planning. The following is the contact number for [employer] rep Rajinder- [phone]. Case discussed with Dr. Lux All management as per Dr. Lux <Alison Lux - Last Filed: 01/22/18 20:29> Objective - Vital Signs/Intake and Output Vital Signs (last 24 hours): Temp Pulse Resp BP Pulse Ox 97.7 F 64 20 128/88 94 L 03/20/18 15:04 01/22/18 16:00 01/22/18 15:04 01/22/18 18:08 01/22/18 15:04 - Medications Medications: Current Medications Aspirin (Ecotrin) 81 mg PO DAILY [facility] Last Admin: 01/22/18 09:02 Dose: 81 mg Carvedilol (Coreg) 12.5 mg PO BID [facility] Last Admin: 01/22/18 18:08 Dose: 12.5 mg Clopidogrel Bisulfate (Plavix) 75 mg PO DAILY [facility] Last Admin: 01/22/18 09:03 Dose: 75 mg Enoxaparin Sodium (Lovenox) 60 mg SC Q12H [facility] Last Admin: 01/22/18 09:03 Dose: 60 mg Famotidine (Pepcid) 20 mg PO BID [facility] Last Admin: 01/22/18 18:07 Dose: 20 mg Furosemide (Lasix) 20 mg IVP DAILY [facility] Last Admin: 01/22/18 09:02 Dose: 20 mg Gabapentin (Neurontin) 400 mg PO TID [facility] Last Admin: 01/22/18 18:07 Dose: 400 mg Glimepiride (Amaryl) 4 mg PO DAILY [facility] Last Admin: 01/22/18 09:01 Dose: 4 mg Insulin Aspart (Novolog) 0 unit SC [facility] PRN Reason: Protocol Last Admin: 01/22/18 18:06 Dose: 1 unit Lisinopril (Zestril) 20 mg PO DAILY [facility] Last Admin: 01/22/18 09:03 Dose: 20 mg Metformin HCl (Glucophage) 1,000 mg PO BID [facility] Last Admin: 01/22/18 18:07 Dose: 1,000 mg Rosuvastatin Calcium (Crestor) 10 mg PO HS [facility] Last Admin: 01/21/18 21:39 Dose: 10 mg - Labs Labs: 01/22/18 07:31 01/22/18 07:31 PT 12.2 SECONDS (9.7-12.2) 01/16/18 19:05 INR 1.1 01/16/18 19:05 APTT 31 SECONDS (21-34) 01/16/18 19:05 Assessment and Plan (1) Change in mental status Status: Acute (2) Chest pain Status: Acute (3) Hypoxia Status: Acute (4) Acute ST elevation myocardial infarction (STEMI) Status: Acute (5) Acute encephalopathy Status: Acute (6) Acute posterior epistaxis Status: Acute (7) Adjustment disorder Status: Acute (8) Angioedema Status: Acute (9) Bronchitis Status: Acute (10) Chronic congestive heart failure Status: Acute (11) Congestive heart failure Status: Acute (12) DVT prophylaxis Status: Acute (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, managed as type 2 Status: Acute (14) Dizziness Status: Acute (15) Dyspnea Status: Acute (16) Dyspnea Status: Acute (17) Dyspnea Status: Acute (18) Elevated troponin I level Status: Acute (19) Episodic confusion Status: Acute (20) H/O acute myocardial infarction Status: Acute (21) H/O: CVA (cerebrovascular accident) Status: Acute (22) Headache Status: Acute (23) History of aortic valve replacement Status: Acute (24) History of depression Status: Acute (25) History of gastroesophageal reflux (GERD) Status: Acute (26) History of mitral valve replacement Status: Acute (27) History of pacemaker Status: Acute (28) History of peripheral neuropathy Status: Acute (29) Hyperglycemia Status: Acute (30) Hyperglycemia Status: Acute (31) Hyperkalemia Status: Acute (32) Hypotension Status: Acute (33) Microscopic hematuria Status: Acute (34) Moderate major depression, single episode Status: Acute (35) NSTEMI (non-ST elevated myocardial infarction) Status: Acute (36) Nasal congestion Status: Acute (37) Near syncope Status: Acute (38) Near syncope Status: Acute (39) Nontransmural infarction Status: Acute (40) Pleural effusion Status: Acute (41) Pneumonia Status: Acute (42) Prophylactic measure Status: Acute (43) Prophylactic measure Status: Acute (44) Right temporal lobe infarction Status: Acute (45) S/P CABG (coronary artery bypass graft) Status: Acute (46) ST elevation (STEMI) myocardial infarction involving other coronary artery of inferior wall Status: Acute (47) Sepsis Status: Acute (48) Sinusitis Status: Acute (49) Sinusitis Status: Acute (50) Staphylococcus aureus bacteremia Status: Acute (51) TIA (transient ischemic attack) Status: Acute (52) Tongue swelling Status: Acute (53) CAD (coronary artery disease) of artery bypass graft Status: Chronic (54) Diabetes Status: Chronic (55) Hypertension Status: Chronic - Assessment and Plan (Free Text) Plan: case seen and d.w staff and resident, concurred with finding and management..
--- NOTE | 2018-01-22 13:33 | CP.PCM.PN ---
Subjective - Date & Time of Evaluation Date of Evaluation: 01/22/18 Time of Evaluation: 13:33 - Subjective Subjective: PT REFERRED TO AND ACCEPTED AT [facility] FOR [facility]; WILL BENEFIT FROM SHORT TERM REHAB HIS SIGNIFICANT OTHER IS HOSPITALIZED AND HE NEEDS ASSISTANCE WITH HIS CARE. HE DOES NOT, HOWEVER, HAVE ON THE LIFE VEST. I SPOKE WITH ELHAM LUKE, DENISSE , TODAY AND MADE HER AWARE OF LIKELY D/C TODAY TO [facility]. PER DENISSE, SHE IS SENDING OUT A [employer] REP TODAY TO APPLY THE LIFE VEST AND RE-EDUCATE THE PT ON THE VEST. CM AND SW AWARE OF PLAN. I HAVE ALSO NOTIFIED DR. SOLIMAN OF THIS PLAN; HE WILL BE ABLE TO D/C THE PT ONCE LIFE VEST ON IF HE IS STILL HERE. D/C NURSE VINICIUS ALSO AWARE OF THE PLAN. NO FURTHER ORDERS. Objective - Vital Signs/Intake and Output Vital Signs (last 24 hours): Temp Pulse Resp BP Pulse Ox 98.3 F 63 20 144/66 95 01/22/18 07:30 01/22/18 07:30 01/22/18 07:30 01/22/18 09:02 01/22/18 07:30 Intake and Output: 01/22/18 01/22/18 06:59 18:59 Intake Total 240 Balance 240 - Medications Medications: Current Medications Aspirin (Ecotrin) 81 mg PO DAILY [facility] Last Admin: 01/22/18 09:02 Dose: 81 mg Carvedilol (Coreg) 12.5 mg PO BID [facility] Last Admin: 01/22/18 09:02 Dose: 12.5 mg Clopidogrel Bisulfate (Plavix) 75 mg PO DAILY [facility] Last Admin: 01/22/18 09:03 Dose: 75 mg Enoxaparin Sodium (Lovenox) 60 mg SC Q12H [facility] Last Admin: 01/22/18 09:03 Dose: 60 mg Famotidine (Pepcid) 20 mg PO BID [facility] Last Admin: 01/22/18 09:03 Dose: 20 mg Furosemide (Lasix) 20 mg IVP DAILY [facility] Last Admin: 01/22/18 09:02 Dose: 20 mg Gabapentin (Neurontin) 400 mg PO TID [facility] Last Admin: 01/22/18 13:10 Dose: 400 mg Glimepiride (Amaryl) 4 mg PO DAILY [facility] Last Admin: 01/22/18 09:01 Dose: 4 mg Insulin Aspart (Novolog) 0 unit SC ACHS [facility] PRN Reason: Protocol Last Admin: 01/22/18 12:18 Dose: 1 unit Lisinopril (Zestril) 20 mg PO DAILY [facility] Last Admin: 01/22/18 09:03 Dose: 20 mg Metformin HCl (Glucophage) 1,000 mg PO BID [facility] Last Admin: 01/22/18 09:02 Dose: 1,000 mg Rosuvastatin Calcium (Crestor) 10 mg PO HS [facility] Last Admin: 01/21/18 21:39 Dose: 10 mg - Labs Labs: 01/22/18 07:31 01/22/18 07:31 PT 12.2 SECONDS (9.7-12.2) 01/16/18 19:05 INR 1.1 01/16/18 19:05 APTT 31 SECONDS (21-34) 01/16/18 19:05
--- NOTE | 2018-01-22 15:46 | CP.PCM.PN ---
Subjective - Date & Time of Evaluation Date of Evaluation: 01/22/18 Time of Evaluation: 11:40 - Subjective Subjective: clinically same Objective - Vital Signs/Intake and Output Vital Signs (last 24 hours): Temp Pulse Resp BP Pulse Ox 98.3 F 63 20 144/66 95 01/22/18 07:30 01/22/18 07:30 01/22/18 07:30 01/22/18 09:02 01/22/18 07:30 Intake and Output: 01/22/18 01/22/18 06:59 18:59 Intake Total 240 Balance 240 - Medications Medications: Current Medications Aspirin (Ecotrin) 81 mg PO DAILY [facility] Last Admin: 01/22/18 09:02 Dose: 81 mg Carvedilol (Coreg) 12.5 mg PO BID [facility] Last Admin: 01/22/18 09:02 Dose: 12.5 mg Clopidogrel Bisulfate (Plavix) 75 mg PO DAILY [facility] Last Admin: 01/22/18 09:03 Dose: 75 mg Enoxaparin Sodium (Lovenox) 60 mg SC Q12H [facility] Last Admin: 01/22/18 09:03 Dose: 60 mg Famotidine (Pepcid) 20 mg PO BID [facility] Last Admin: 01/22/18 09:03 Dose: 20 mg Furosemide (Lasix) 20 mg IVP DAILY [facility] Last Admin: 01/22/18 09:02 Dose: 20 mg Gabapentin (Neurontin) 400 mg PO TID [facility] Last Admin: 01/22/18 13:10 Dose: 400 mg Glimepiride (Amaryl) 4 mg PO DAILY [facility] Last Admin: 01/22/18 09:01 Dose: 4 mg Insulin Aspart (Novolog) 0 unit SC [facility] PRN Reason: Protocol Last Admin: 01/22/18 12:18 Dose: 1 unit Lisinopril (Zestril) 20 mg PO DAILY [facility] Last Admin: 01/22/18 09:03 Dose: 20 mg Metformin HCl (Glucophage) 1,000 mg PO BID [facility] Last Admin: 01/22/18 09:02 Dose: 1,000 mg Rosuvastatin Calcium (Crestor) 10 mg PO HS [facility] Last Admin: 01/21/18 21:39 Dose: 10 mg - Labs Labs: 01/22/18 07:31 01/22/18 07:31 PT 12.2 SECONDS (9.7-12.2) 01/16/18 19:05 INR 1.1 01/16/18 19:05 APTT 31 SECONDS (21-34) 01/16/18 19:05 - Constitutional Appears: Well - Head Exam Head Exam: ATRAUMATIC, NORMAL INSPECTION, NORMOCEPHALIC - Eye Exam Eye Exam: EOMI, Normal appearance, PERRL Pupil Exam: NORMAL ACCOMODATION, PERRL - ENT Exam ENT Exam: Mucous Membranes Moist, Normal Exam - Neck Exam Neck Exam: Full ROM, Normal Inspection. absent: Lymphadenopathy - Respiratory Exam Respiratory Exam: Decreased Breath Sounds - Cardiovascular Exam Cardiovascular Exam: REGULAR RHYTHM, +S1, +S2 - GI/Abdominal Exam GI & Abdominal Exam: Soft, Diminished Bowel Sounds - Rectal Exam Rectal Exam: Deferred Assessment and Plan (1) Change in mental status Status: Acute (2) Chest pain Status: Acute (3) Hypoxia Status: Acute (4) Acute ST elevation myocardial infarction (STEMI) Status: Acute (5) Acute encephalopathy Status: Acute (6) Acute posterior epistaxis Status: Acute (7) Adjustment disorder Status: Acute (8) Angioedema Status: Acute (9) Bronchitis Status: Acute (10) Chronic congestive heart failure Status: Acute (11) Congestive heart failure Status: Acute (12) DVT prophylaxis Status: Acute (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, managed as type 2 Status: Acute (14) Dizziness Status: Acute (15) Dyspnea Status: Acute (16) Dyspnea Status: Acute (17) Dyspnea Status: Acute (18) Elevated troponin I level Status: Acute (19) Episodic confusion Status: Acute (20) H/O acute myocardial infarction Status: Acute (21) H/O: CVA (cerebrovascular accident) Status: Acute (22) Headache Status: Acute (23) History of aortic valve replacement Status: Acute (24) History of depression Status: Acute (25) History of gastroesophageal reflux (GERD) Status: Acute (26) History of mitral valve replacement Status: Acute (27) History of pacemaker Status: Acute (28) History of peripheral neuropathy Status: Acute (29) Hyperglycemia Status: Acute (30) Hyperglycemia Status: Acute (31) Hyperkalemia Status: Acute (32) Hypotension Status: Acute (33) Microscopic hematuria Status: Acute (34) Moderate major depression, single episode Status: Acute (35) NSTEMI (non-ST elevated myocardial infarction) Status: Acute (36) Nasal congestion Status: Acute (37) Near syncope Status: Acute (38) Near syncope Status: Acute (39) Nontransmural infarction Status: Acute (40) Pleural effusion Status: Acute (41) Pneumonia Status: Acute (42) Prophylactic measure Status: Acute (43) Prophylactic measure Status: Acute (44) Right temporal lobe infarction Status: Acute (45) S/P CABG (coronary artery bypass graft) Status: Acute (46) ST elevation (STEMI) myocardial infarction involving other coronary artery of inferior wall Status: Acute (47) Sepsis Status: Acute (48) Sinusitis Status: Acute (49) Sinusitis Status: Acute (50) Staphylococcus aureus bacteremia Status: Acute (51) TIA (transient ischemic attack) Status: Acute (52) Tongue swelling Status: Acute (53) CAD (coronary artery disease) of artery bypass graft Status: Chronic (54) Diabetes Status: Chronic (55) Hypertension Status: Chronic - Assessment and Plan (Free Text) Plan: Chest pain Consult placed to Dr. Ambreen maldonado appreciated Stress test performed 01/17- large areas of infarction without reversible ischemia; severe LV dysfunction Recommending medical therapy with ASA and addition of Plavix 75 mg daily ( started 01/18/18) Fitted for lifevest follow up in 3months for AICD ECHO 01/17 Severely reduced LV systolic function with EF of 20-25% Trop 0.0260->0.0370 This patient has a hx of CAD and known occlusion of stents as per cardio CAD s/p CABG AVR/MVR ASA 81mg PO daily Plavix 75mg PO daily Coreg 12.5 mg PO BID Hypoxia -CXR on 01/16: Prominent increased consolidative changes seen within the left mid to lower lung zone concerning for infiltrate and or atelectasis. Small left pleural effusion. Venous congestion. Right hilar prominence. Cardiomegaly. -D-dimer on admission: 895 -VQ scan on 01/16: No findings to suggest pulmonary embolism -Continue supplemental oxygen to maintain saturation over 95% -Continue nebulizer treatment q6hrs CHF- combined Consult placed to Dr. Ambreen maldonado appreciated Severe LV dysfunction. Previous echocardiogram in november EF 40-45%. Patient has a PPM. He will need reevlauation of EF in 3 months. If persistent LV dsfunction recommend upgrade to AICD. Consider the addition of Entresto. Echo 01/17- As above Lasix 20mg IVP daily CAD s/p CABG AVR/MVR s/p cardiac cath with stents complicated by occlusion ASA 81mg PO daily Plavix 75mg PO daily Diabetes complicated by neuropathy Glimeperide 4mg PO daily Metformin 1000mg PO BID ISS Gabapentin 400mg PO TID Lisinopril 20mg PO daily Crestor 10mg PO QHS Prophylaxis Lovenox 60mg SC q12hrs Pepcid 20mg PO BID He was fitted by a lifevest but the vest was not placed on the patient by the [employer] rep because the pt was on tele. The rep was contacted yesterday and it was made the clear that the patient could not reliably place the life vest on himself and that we would need the rep to return for placement. The patient had requested that his be present for this fitting so she could help him put the vest on. It was brought to light this morning that the pt's is in the ICU here herself as she is ill. This patient will likely need placement for care upon discharge. This information has been discussed with s/w to aid in d/c planning. The following is the contact number for [employer] [facility] Rajinder- [phone].
[2018-01-22 16:04] VITALS: TEMP 97.7; O2SAT 94
[2018-01-22 17:20] VITALS: PULSE 64
[2018-01-22 18:11] VITALS: BP 128/88
== END 2018-01-22 20:38 | DRG 280 ==
LOC: C.ER 18:11 → C.9E 23:30 → C.6T 23:52
PROVIDERS: ADMIT Internal Medicine Nephrology; ATTEND Internal Medicine Nephrology
DX: R55 Syncope and collapse (principal); G93.40 Encephalopathy, unspecified; I21.4 Non-ST elevation (NSTEMI) myocardial infarction; I69.351 Hemiplegia and hemiparesis following cerebral infarction affecting right dominant side; F32.1 Major depressive disorder, single episode, moderate; I42.0 Dilated cardiomyopathy; I11.0 Hypertensive heart disease with heart failure; E11.65 Type 2 diabetes mellitus with hyperglycemia; I50.9 Heart failure, unspecified; E87.5 Hyperkalemia; E78.00 Pure hypercholesterolemia, unspecified; Z95.5 Presence of coronary angioplasty implant and graft; I25.10 Atherosclerotic heart disease of native coronary artery without angina pectoris; R04.0 Epistaxis; R09.02 Hypoxemia; Z95.0 Presence of cardiac pacemaker; K21.9 Gastro-esophageal reflux disease without esophagitis; R31.29 Other microscopic hematuria; J44.9 Chronic obstructive pulmonary disease, unspecified; E11.40 Type 2 diabetes mellitus with diabetic neuropathy, unspecified; Z79.4 Long term (current) use of insulin; Z99.81 Dependence on supplemental oxygen

== ENCOUNTER 2018-02-01 04:31 | Inpatient (IN) | payer MEDICARE, MEDICAID ==
[2018-02-01 04:32] VITALS: BMI 32.5
--- NOTE | 2018-02-01 04:55 | C.PDOC ---
History Of Present Illness Patient with a Hx of HTN, CABG, AVR, MVR, sent to the ER from residential for a complaint of chest pain. Patient was given aspirin at the residential. Denies SOB, nausea, or vomiting. Time Seen by Provider: 02/01/18 04:34 Chief Complaint (Nursing): Chest Pain History Per: Patient History/Exam Limitations: no limitations Onset/Duration Of Symptoms: Hrs Current Symptoms Are (Timing): Still Present Severity: Moderate Pain Scale Rating Of: 4 Quality: Other (unable to describe) Associated Symptoms: denies: Nausea, Dyspnea, Diaphoresis, Syncope Modifying Factors: None Exacerbating Factors: None Alleviating Factors: None Recent travel outside of the [place]: No Additional History Per: Patient Past Medical History Reviewed: Historical Data, Nursing Documentation, Vital Signs Vital Signs: Last Vital Signs Temp 97.9 F 02/01/18 04:51 Pulse 58 L 02/01/18 04:51 Resp 22 02/01/18 04:51 BP 116/62 02/01/18 04:51 Pulse Ox 98 02/01/18 05:27 - Medical History PMH: Arthritis, Asthma, CAD, Cardia Arrhythmia, CHF, COPD, CVA (affecting right side of body), Depression (denies), Diabetes, Gastritis, HTN, Hypercholesterolemia Surgical History: CABG (BENDER to LAD, SVG to OM1,OM2, SVG to Diag, SVG to PDA. AVR/MVR (bioprosth)), Coronary Stent (x9), Pacemaker - [facility] Procedures CORONAR ARTERIOGR-2 CATH (07/19/14) DILATION OF CORONARY ARTERY, ONE SITE, PERCUTANEOUS APPROACH (05/20/16) INSERTION OF INFUSION DEV INTO SUP VENA CAVA, PERC APPROACH (01/19/17) INSPECTION OF LARYNX, ENDO (04/23/16) LEFT HEART CARDIAC CATH (07/19/14) LT HEART ANGIOCARDIOGRAM (07/19/14) MEASURE CARDIAC SAMPL & PRESSURE, BILATERAL, PERC (07/08/17) MEASURE OF CARDIAC SAMPL & PRESSURE, L HEART, PERC APPROACH (05/20/16) PLAIN RADIOGRAPHY OF L INT MAMM GRAFT USING OTH CONTRAST (05/20/16) PLAIN RADIOGRAPHY OF LEFT HEART USING OTHER CONTRAST (05/20/16) PLAIN RADIOGRAPHY OF MULT COR A GRAFT USING OTH CONTRAST (07/08/17) PLAIN RADIOGRAPHY OF MULT COR ART USING OTH CONTRAST (07/08/17) PLAIN RADIOGRAPHY OF RIGHT AND LEFT HEART USING OTH CONTRAST (07/08/17) ULTRASONOGRAPHY OF RIGHT AND LEFT HEART, TRANSESOPHAGEAL (01/19/17) Family History: States: No Known Family Hx - Social History Hx Tobacco Use: No Hx Alcohol Use: Yes Hx Substance Use: No - Immunization History Hx Tetanus Toxoid Vaccination: Yes Hx Influenza Vaccination: Yes Hx Pneumococcal Vaccination: Yes Review Of Systems Constitutional: Negative for: Fever, Chills ENT: Negative for: Throat Pain Cardiovascular: Positive for: Chest Pain Respiratory: Negative for: Shortness of Breath Gastrointestinal: Negative for: Nausea, Vomiting Genitourinary: Negative for: Dysuria Musculoskeletal: Negative for: Back Pain Skin: Negative for: Rash Neurological: Negative for: Weakness Psych: Negative for: Anxiety Physical Exam - Physical Exam Appears: Non-toxic Skin: Warm, Dry Head: Normacephalic Eye(s): bilateral: Normal Inspection Oral Mucosa: Moist Neck: Supple Chest: No Tenderness, Other (Midline CABG scar) Cardiovascular: Rhythm Regular Respiratory: No Rales, No Rhonchi, No Wheezing Gastrointestinal/Abdominal: Soft, No Tenderness Back: No CVA Tenderness Extremity: Pedal Edema (Bilateral) Extremity: Bilateral: Atraumatic, Normal ROM Pulses: Left Dorsalis Pedis: Normal, Right Dorsalis Pedis: Normal Neurological/Psych: Oriented x3 Gait: Unable To Assess ED Course And Treatment - Laboratory Results Result Diagrams: 02/01/18 04:57 02/01/18 04:57 ECG: Interpreted By Me, Viewed By Me ECG Rhythm: Sinus Rhythm (58), 1st Degree HB, Nonspecific Changes O2 Sat by Pulse Oximetry: 98 Pulse Ox Interpretation: Normal - Radiology CXR: Interpreted by Me, Viewed By Me CXR Interpretation: Yes: Cardiomegaly, Other (chf, pacer on left). No: Infiltrates, Fracture Progress Note: Blood work, urinalysis, EKG, CXR ordered. Disposition Discussed With : Alison Lux Comment: accepted the pt on his service and took over the care at 5:54 AM Doctor Will See Patient In The: Hospital Counseled Patient/Family Regarding: Studies Performed, Diagnosis - Disposition Disposition: HOSPITALIZED Disposition Time: 05:54 Condition: FAIR Forms: [employer] (Greek) - POA Present On Arrival: None - Clinical Impression Clinical Impression: Chest pain - Scribe Statement The provider has reviewed the documentation as recorded by the Scribe Jose Petty All medical record entries made by the Scribe were at my direction and personally dictated by me. I have reviewed the chart and agree that the record accurately reflects my personal performance of the history, physical exam, medical decision making, and the department course for this patient. I have also personally directed, reviewed, and agree with the discharge instructions and disposition. Decision To Admit - Pt Status Changed To: Hospital Disposition Of: Inpatient - Admit Certification Admit to Inpatient:: After my assessment, the patient will require hospitalization for at least two midnights. This is because of the severity of symptoms shown, intensity of services needed, and/or the medical risk in this patient being treated as an outpatient. - InPatient: Physician Admission Certification: I certify that this patient requires 2 or more midnights of care for the following reason:: After my assessment, the patient will require hospitalization for at least two midnights. This is because of the severity of symptoms shown, intensity of services needed, and/or the medical risk in this patient being treated as an outpatient. - . Bed Request Type: Telemetry Admitting Physician: Alison Lux Patient Diagnosis: Chest pain
[2018-02-01 05:01] LABS: HEMOGLOBIN 12.9 g/dL (12.0-18.0); RED CELL DISTRIBUTION WIDTH 17.3 % (11.5-14.5); WHITE BLOOD COUNT 9.3 K/uL (4.8-10.8)
[2018-02-01 05:07] LABS: PROTHROMBIN TIME 11.6 SECONDS (9.7-12.2)
[2018-02-01 05:08] LABS: BASO # 0.1 K/uL (0.0-0.2); EOS # 0.4 K/uL (0.0-0.7); LYMPH # 1.8 K/uL (1.0-4.3); LYMPH % 19.7 % (20.0-40.0); MEAN CELL VOLUME 78.7 fL (80.0-94.0); MEAN CORPUSCULAR HEMOGLOBIN 24.5 pg (27.0-31.0); MEAN CORPUSCULAR HGB CONC 31.1 g/dL (33.0-37.0); MEAN PLATELET VOLUME 8.7 fL (7.2-11.7); MONO # 0.8 K/uL (0.0-0.8); MONO % 8.8 % (0.0-10.0); NEUT # 6.2 K/uL (1.8-7.0); NEUT % 66.5 % (50.0-75.0); NRBC % 0.1 % (0.0-2.0); RBC 5.27 Mil/uL (4.40-5.90)
[2018-02-01 05:23] LABS: B-TYPE NATRIURETIC PEPTIDE 635 pg/mL (0-900)
[2018-02-01 05:26] LABS: ALB/GLOB RATIO 1.1 (1.0-2.1); ALBUMIN 3.9 g/dL (3.5-5.0); ALT/SGPT 27 U/L (21-72); AST/SGOT 36 U/L (17-59); BLOOD UREA NITROGEN 23 mg/dL (9-20); CALCIUM 8.7 mg/dl (8.6-10.4); GFR AFRICAN-AMERICAN > 60; GFR NON-AFRICAN AMERICAN 55; LIPASE 129 U/L (23-300)
[2018-02-01 06:51] VITALS: RESP 20
--- NOTE | 2018-02-01 08:07 | RAD ---
Chest x-ray single frontal view History: Chest pain. Comparison: None available. Findings: Moderate venous congestion. Moderate left pleural effusion. Confluent airspace opacification of the left mid to lower lung zone. Cardiomegaly. Status post median sternotomy. Left-sided pacemaker. Impression: Moderate venous congestion. Moderate left pleural effusion. Confluent airspace opacification of the left mid to lower lung zone. Cardiomegaly.
--- NOTE | 2018-02-01 09:43 | CP.PCM.PN ---
Subjective - Date & Time of Evaluation Date of Evaluation: 02/01/18 Time of Evaluation: 09:43 - Subjective Subjective: Progress Note for Dr. Lux's Service Patient seen and examined at bedside. He was recently discharge from this facility and when questioned about why he has returned his response is unclear, tangential and he appears confused. The patient has provided unreliable information on previous admission as well. He states that both he and his feel sick and since his is here in the hospital he is coming in as well. Objective - Vital Signs/Intake and Output Vital Signs (last 24 hours): Temp Pulse Resp BP Pulse Ox 98.0 F 57 L 20 120/79 99 02/01/18 08:56 02/01/18 08:56 02/01/18 08:56 02/01/18 08:56 02/01/18 08:56 - Medications Medications: Current Medications Aspirin (Ecotrin) 81 mg PO DAILY [facility] Carvedilol (Coreg) 12.5 mg PO BID [facility] Famotidine (Pepcid) 20 mg PO DAILY [facility] Furosemide (Lasix) 40 mg PO DAILY [facility] Gabapentin (Neurontin) 400 mg PO TID [facility] Heparin Sodium (Porcine) (Heparin) 5,000 units SC Q12 [facility] Insulin Aspart (Novolog) 0 unit SC ACHS [facility] PRN Reason: Protocol Lisinopril (Zestril) 20 mg PO DAILY [facility] Rosuvastatin Calcium (Crestor) 10 mg PO HS [facility] Ticagrelor (Brilinta) 90 mg PO BID [facility] - Labs Labs: 02/01/18 04:57 02/01/18 04:57 PT 11.6 SECONDS (9.7-12.2) 02/01/18 04:57 INR 1.0 02/01/18 04:57 APTT 33 SECONDS (21-34) 02/01/18 04:57 - Constitutional Appears: No Acute Distress - Head Exam Head Exam: ATRAUMATIC, NORMOCEPHALIC - Eye Exam Eye Exam: EOMI, Normal appearance - ENT Exam ENT Exam: Mucous Membranes Moist - Respiratory Exam Respiratory Exam: Clear to Ausculation Bilateral, NORMAL BREATHING PATTERN. absent: Rales, Rhonchi, Wheezes - Cardiovascular Exam Cardiovascular Exam: REGULAR RHYTHM, +S1, +S2 - GI/Abdominal Exam GI & Abdominal Exam: Distended, Soft. absent: Tenderness - Neurological Exam Neurological Exam: Alert, Awake - Psychiatric Exam Psychiatric exam: Normal Affect, Normal Mood - Skin Skin Exam: Dry, Warm Assessment and Plan - Assessment and Plan (Free Text) Plan: Chest pain Admission to tele Consult placed to Dr. Montanez- f/u joel Stress test performed 01/17- large areas of infarction without reversible ischemia; severe LV dysfunction ECHO 01/17 Severely reduced LV systolic function with EF of 20-25% Trop negative x 1- f/u remaining trops BNP 635 This patient has a hx of CAD and known occlusion of stents as per cardio CAD s/p CABG AVR/MVR ASA 81mg PO daily Brilinta 90mg PO BID Coreg 12.5 mg PO BID CHF- combined Consult placed to Dr. Montanez- joel appreciated Severe LV dysfunction. Previous echocardiogram in november EF 40-45%. Patient has a PPM. Echo 01/17- As above Lasix 40mg PO daily CAD s/p CABG AVR/MVR s/p cardiac cath with stents complicated by occlusion ASA 81mg PO daily Brilinta 90mg PO BID Diabetes complicated by neuropathy ISS Gabapentin 400mg PO TID Lisinopril 20mg PO daily Crestor 10mg PO QHS Prophylaxis Heparin 5k units SC q12hrs Pepcid 20mg PO QD This patient was recently discharged from [facility] with life vest with recommendation of 3mo f/u for AICD placement. His primary [employer] principal is his who has been ill and hospitalized as well. He was unable to return home and was d/c to care facility. Case discussed with Dr. Lux All management as per Dr. Lux
--- NOTE | 2018-02-01 11:06 | CARD ---
APPROVED REPORT EKG Measurement Heart [id number] <Conclusion> Sinus bradycardia with 1st degree AV block Rightward axis Nonspecific intraventricular block Abnormal ECG
[2018-02-01 12:00] LABS: CK-MB 4.15 ng/mL (0.0-3.38); TROPONIN I 0.03 ng/mL (0.00-0.120)
[2018-02-01] MEDS: (Novolog) Insulin Aspart, Recombinant 100 u/ml 10 ml vial SC SCH ×3 (12:27→21:25)
--- NOTE | 2018-02-01 16:44 | CP.PCM.CON ---
History of Present Illness - History of Present Illness History of Present Illness: I was asked to evaluate patient for chest pain. patient is a 67 year old male with PMH HTN, CAD s/p CABG, MVR, AVR, PPM ischemic cardiomyopathy who presents with chest pain. He had a recent stress test revealing large area of infarction. The patient was noted to have decreased LV function. Lifevest was placed. The patient has no chest pain. Review of Systems - Constitutional Constitutional: absent: As Per HPI, Anorexia, Chills, Daytime Sleepiness, Excessive Sweating, Fatigue, Fever, Frequent Falls, Headache, Increased Appetite , Lethargy, Malaise, Night Sweats, Snoring, Sleep Apnea, Weight Gain, Weight Loss, Weakness, Other - EENT Eyes: absent: As Per HPI, Blind Spots, Blurred Vision, Change in Vision, Decreased Night Vision, Diplopia, Discharge, Dry Eye, Exophthalmos, Floaters, Irritation, Itchy Eyes, Loss of Peripheral Vision, Pain, Photophobia, Requires Corrective Lenses, Sees Flashes, Spots in Vision, Tunnel Vision, Other Visual Disturbances, Loss of Vision, Other Ears: absent: As Per HPI, Decreased Hearing, Ear Discharge, Ear Pain, Tinnitus, Abnormal Hearing, Disequilibrium, Dizziness, Other Nose/Mouth/Throat: absent: As Per HPI, Epistaxis, Nasal Congestion, Nasal Discharge, Nasal Obstruction, Nasal Trauma, Nose Pain, Post Nasal Drip, Sinus Pain, Sinus Pressure, Bleeding Gums, Change in Voice, Dental Pain, Dry Mouth, Dysphagia, Halitosis, Hoarsness, Lip Swelling, Mouth Lesions, Mouth Pain, Odynophagia, Sore Throat, Throat Swelling, Tongue Swelling, Facial Pain, Neck Pain, Neck Mass, Other - Cardiovascular Cardiovascular: Chest Pain, Chest Pain at Rest - Respiratory Respiratory: absent: As Per HPI, Cough, Dyspnea, Hemoptysis, Dyspnea on Exertion , Wheezing, Snoring, Stridor, Pain on Inspiration, Chest Congestion, Excessive Mucous Production, Change in Mucous Color, Pain with Coughing, Other - Gastrointestinal Gastrointestinal: absent: As Per HPI, Abdominal Pain, Belching, Bloating, Change in Bowel Habits, Change in Stool Character, Coffee Ground Emesis, Constipation, Cramping, Diarrhea, Dyspepsia, Dysphagia, Early Satiety, Excessive Flatus, Fecal Incontinence, Heartburn, Hematemesis, Hematochezia, Loose Stools, Melena, Nausea, Odynophagia, Temesmus, Vomiting, Other - Genitourinary Genitourinary: absent: As Per HPI, Change in Urinary Stream, Difficulty Urinating, Dysuria, Flank Pain, Hematuria, Pyuria, Nocturia, Urinary Incontinence, Urinary Frequency, Urinary Hesitance, Urinary Urgency, Voiding Freq/Small Amts, Freq UTI, Hx Renal/Bladder Calculi, Hx /Renal Surgery, Bladder Distension, Other - Musculoskeletal Musculoskeletal: absent: As Per HPI, Abnormal Gait, Arthralgias, Atrophy, Back Pain, Deformity, Joint Swelling, Limited Range of Motion, Loss of Height, Muscle Cramps, Muscle Weakness, Myalgias, Neck Pain, Numbness, Radiating Pain into Limb, Stiffness, Tingling, Other - Integumentary Integumentary: absent: As Per HPI, Acne, Alopecia, Bleeding Lesions, Change in Hair, Change in Nails, Change in Pigmentation, Changing Lesions, Dry Skin, Erythema, Furuncle, Hirsutism, Lesions, New Lesions, Non-Healing Lesions, Photosensitivity, Pruritus, Rash, Skin Pain, Skin Ulcer, Sores, Striae, Swelling , Unusual Bruising, Wounds, Jaundice, Other - Neurological Neurological: absent: As Per HPI, Abnormal Gait, Abnormal Hearing, Abnormal Movements, Abnormal Speech, Behavioral Changes, Burning Sensations, Confusion, Convulsions, Disequilibrium, Dizziness, Numbness, Focal Weakness, Frequent Falls , Headaches, Lack of Coordination, Loss of Vision, Memory Loss, Paresthesias, Radicular Pain, Restless Legs, Sensory Deficit, Syncope, Tingling, Tremor, Vertigo, Weakness, Other Visual Disturbances, Other - Psychiatric Psychiatric: absent: As Per HPI, Abnormal Sleep Pattern, Anhedonia, Anxiety, Auditory Hallucinations, Behavioral Changes, Change in Appetite, Change in Libido, Confusion, Depression, Difficulty Concentrating, Hallucinations, Homicidal Ideation, Hopelessness, Irritability, Memory Loss, Mood Swings, Panic Attacks, Paranoia, Suicidal Ideation, Visual Hallucinations, Tactile Hallucinations, Other - Endocrine Endocrine: absent: As Per HPI, Change in Body Appearance, Change in Libido, Cold Intolorance, Deepening of Voice, Excessive Sweating, Fatigue, Flushing, Heat Intolorance, Increase in Ring/Shoe/Hat Size, Palpitations, Polydipsia, Polyphagia, Polyuria, Other - Hematologic/Lymphatic Hematologic: absent: As Per HPI, Easy Bleeding, Easy Bruising, Lymphadenopathy, Other Past Patient History - Infectious Disease Hx of Infectious Diseases: None - Past Medical History & Family History Past Medical History?: Yes - Past Social History Smoking Status: Former Smoker - CARDIAC Hx Cardia Arrhythmia: Yes Hx Congestive Heart Failure: Yes Hx Hypercholesterolemia: Yes Hx Hypertension: Yes Hx Pacemaker: Yes - PULMONARY Hx Asthma: Yes Hx Chronic Obstructive Pulmonary Disease (COPD): Yes - NEUROLOGICAL HX Cerebrovascular Accident: Yes - HEENT Hx HEENT Problems: No - RENAL Hx Chronic Kidney Disease: No - ENDOCRINE/METABOLIC Hx Diabetes Mellitus Type 2: Yes - INTEGUMENTARY Hx Dermatological Problems: No Other/Comment: abdominal area with surgical scars - MUSCULOSKELETAL/RHEUMATOLOGICAL Hx Arthritis: Yes Hx Falls: Yes - GASTROINTESTINAL Hx Gastritis: Yes - PSYCHIATRIC Hx Depression: Yes (denies) Hx Substance Use: Yes - SURGICAL HISTORY Hx Coronary Artery Bypass Graft: Yes (BENDER to LAD, SVG to OM1,OM2, SVG to Diag, SVG to PDA. AVR/MVR (bioprosth)) Hx Coronary Stent: Yes (x9) - ANESTHESIA Hx Anesthesia: Yes Hx Anesthesia Reactions: No Hx Malignant Hyperthermia: No Meds Allergies/Adverse Reactions: Allergies Allergy/AdvReac Type Severity Reaction Status Date / Time iodine Allergy Intermediate SHORTNESS Verified 01/16/18 18:43 OF BREATH shellfish derived Allergy Intermediate ANGIOEDEMA Verified 01/16/18 18:43 milk Allergy Mild SHORTNESS Verified 01/16/18 18:43 OF BREATH - Medications Medications: Current Medications Aspirin (Ecotrin) 81 mg PO DAILY [facility] Last Admin: 02/01/18 10:40 Dose: 81 mg Carvedilol (Coreg) 12.5 mg PO BID [facility] Last Admin: 02/01/18 10:40 Dose: 12.5 mg Famotidine (Pepcid) 20 mg PO DAILY [facility] Last Admin: 02/01/18 10:40 Dose: 20 mg Furosemide (Lasix) 40 mg PO DAILY [facility] Last Admin: 02/01/18 10:40 Dose: 40 mg Gabapentin (Neurontin) 400 mg PO TID [facility] Last Admin: 02/01/18 13:57 Dose: 400 mg Heparin Sodium (Porcine) (Heparin) 5,000 units SC Q12 [facility] Last Admin: 02/01/18 10:39 Dose: 5,000 units Insulin Aspart (Novolog) 0 unit SC ACHS [facility] PRN Reason: Protocol Last Admin: 02/01/18 12:27 Dose: 1 unit Levetiracetam (Keppra) 500 mg PO BID [facility] Lisinopril (Zestril) 20 mg PO DAILY [facility] Last Admin: 02/01/18 10:39 Dose: 20 mg Rosuvastatin Calcium (Crestor) 10 mg PO HS [facility] Ticagrelor (Brilinta) 90 mg PO BID [facility] Last Admin: 02/01/18 10:40 Dose: 90 mg Physical Exam - Constitutional Appears: Non-toxic - Head Exam Head Exam: NORMAL INSPECTION - Eye Exam Eye Exam: Normal appearance - ENT Exam ENT Exam: Mucous Membranes Moist - Neck Exam Neck exam: Positive for: Normal Inspection - Respiratory Exam Respiratory Exam: NORMAL BREATHING PATTERN - Cardiovascular Exam Cardiovascular Exam: REGULAR RHYTHM - GI/Abdominal Exam GI & Abdominal Exam: Normal Bowel Sounds - Rectal Exam Rectal Exam: Deferred - Extremities Exam Extremities exam: Negative for: pedal edema - Back Exam Back exam: NORMAL INSPECTION - Neurological Exam Neurological exam: Alert, Oriented x3 - Psychiatric Exam Psychiatric exam: Normal Affect - Skin Skin Exam: Normal Color Results - Vital Signs Recent Vital Signs: Last Vital Signs Temp 98.1 F 02/01/18 15:25 Pulse 55 L 02/01/18 15:25 Resp 20 02/01/18 15:25 BP 115/67 02/01/18 15:25 Pulse Ox 99 02/01/18 15:25 - Labs Result Diagrams: 02/01/18 04:57 02/01/18 04:57 Labs: Laboratory Results - last 24 hr 02/01/18 02/01/18 02/01/18 04:57 04:57 04:57 WBC 9.3 RBC 5.27 Hgb 12.9 Hct 41.5 MCV 78.7 L MCH 24.5 L MCHC 31.1 L RDW 17.3 H Plt Count 213 MPV 8.7 Neut % (Auto) 66.5 Lymph % (Auto) 19.7 L Jenkins % (Auto) 8.8 Eos % (Auto) 4.0 Baso % (Auto) 1.0 Neut # (Auto) 6.2 Lymph # (Auto) 1.8 Jenkins # (Auto) 0.8 Eos # (Auto) 0.4 Baso # (Auto) 0.1 PT 11.6 INR 1.0 APTT 33 Sodium 144 Potassium 4.1 Chloride 101 Carbon Dioxide 28 Anion Gap 19 BUN 23 H Creatinine 1.3 Est GFR ( Amer) > 60 Est GFR (Non-Af Amer) 55 POC Glucose (mg/dL) Random Glucose 110 Calcium 8.7 Total Bilirubin 0.5 AST 36 ALT 27 Alkaline Phosphatase 44 Total Creatine Kinase CK-MB (Mass) Troponin I 0.0360 NT-Pro-B Natriuret Pep 635 Total Protein 7.5 Albumin 3.9 Globulin 3.6 Albumin/Globulin Ratio 1.1 Lipase 129 02/01/18 02/01/18 11:18 11:43 WBC RBC Hgb Hct MCV MCH MCHC RDW Plt Count MPV Neut % (Auto) Lymph % (Auto) Jenkins % (Auto) Eos % (Auto) Baso % (Auto) Neut # (Auto) Lymph # (Auto) Jenkins # (Auto) Eos # (Auto) Baso # (Auto) PT INR APTT Sodium Potassium Chloride Carbon Dioxide Anion Gap BUN Creatinine Est GFR ( Amer) Est GFR (Non-Af Amer) POC Glucose (mg/dL) 158 H Random Glucose Calcium Total Bilirubin AST ALT Alkaline Phosphatase Total Creatine Kinase 284 H CK-MB (Mass) 4.15 H Troponin I 0.0300 NT-Pro-B Natriuret Pep Total Protein Albumin Globulin Albumin/Globulin Ratio Lipase - EKG Data EKG Interpreted by: Myself EKG shows normal: Sinus rhythm Assessment & Plan (1) Chronic congestive heart failure Assessment and Plan: recommend conitnued Lifevest. Patient will have reevaluation of EF and likley upgrade of PPM to AICD. Status: Acute (2) S/P CABG (coronary artery bypass graft) Status: Acute (3) CAD (coronary artery disease) of artery bypass graft Assessment and Plan: patient has infarction on stress test. If troponin negative recommend medical therapy and discharge. Status: Chronic (4) Diabetes Assessment and Plan: control Status: Chronic (5) Hypertension Assessment and Plan: blood pressure control Status: Chronic
[2018-02-01 16:58] LABS: CK-MB 4.24 ng/mL (0.0-3.38); TROPONIN I 0.02 ng/mL (0.00-0.120)
--- NOTE | 2018-02-01 17:33 | CP.PCM.HP ---
Past Patient History - Infectious Disease Hx of Infectious Diseases: None - Past Medical History & Family History Past Medical History?: Yes - Past Social History Smoking Status: Former Smoker - CARDIAC Hx Cardia Arrhythmia: Yes Hx Congestive Heart Failure: Yes Hx Hypercholesterolemia: Yes Hx Hypertension: Yes Hx Pacemaker: Yes - PULMONARY Hx Asthma: Yes Hx Chronic Obstructive Pulmonary Disease (COPD): Yes - NEUROLOGICAL HX Cerebrovascular Accident: Yes - HEENT Hx HEENT Problems: No - RENAL Hx Chronic Kidney Disease: No - ENDOCRINE/METABOLIC Hx Diabetes Mellitus Type 2: Yes - INTEGUMENTARY Hx Dermatological Problems: No Other/Comment: abdominal area with surgical scars - MUSCULOSKELETAL/RHEUMATOLOGICAL Hx Arthritis: Yes Hx Falls: Yes - GASTROINTESTINAL Hx Gastritis: Yes - PSYCHIATRIC Hx Depression: Yes (denies) Hx Substance Use: Yes - SURGICAL HISTORY Hx Coronary Artery Bypass Graft: Yes (BENDER to LAD, SVG to OM1,OM2, SVG to Diag, SVG to PDA. AVR/MVR (bioprosth)) Hx Coronary Stent: Yes (x9) - ANESTHESIA Hx Anesthesia: Yes Hx Anesthesia Reactions: No Hx Malignant Hyperthermia: No Meds Allergies/Adverse Reactions: Allergies Allergy/AdvReac Type Severity Reaction Status Date / Time iodine Allergy Intermediate SHORTNESS Verified 01/16/18 18:43 OF BREATH shellfish derived Allergy Intermediate ANGIOEDEMA Verified 01/16/18 18:43 milk Allergy Mild SHORTNESS Verified 01/16/18 18:43 OF BREATH Physical Exam - Constitutional Appears: Well - Head Exam Head Exam: ATRAUMATIC, NORMAL INSPECTION, NORMOCEPHALIC - Eye Exam Eye Exam: EOMI, Normal appearance, PERRL Pupil Exam: NORMAL ACCOMODATION, PERRL - ENT Exam ENT Exam: Mucous Membranes Moist, Normal Exam - Neck Exam Neck exam: Positive for: Normal Inspection - Respiratory Exam Respiratory Exam: Decreased Breath Sounds - Cardiovascular Exam Cardiovascular Exam: REGULAR RHYTHM, +S1, +S2 - GI/Abdominal Exam GI & Abdominal Exam: Diminished Bowel Sounds, Soft - Rectal Exam Rectal Exam: Deferred Results - Vital Signs Recent Vital Signs: Last Vital Signs Temp 98.1 F 02/01/18 15:25 Pulse 55 L 02/01/18 15:25 Resp 20 02/01/18 15:25 BP 115/67 02/01/18 15:25 Pulse Ox 99 02/01/18 15:25 - Labs Result Diagrams: 02/01/18 04:57 02/01/18 04:57 Labs: Laboratory Results - last 24 hr 02/01/18 02/01/18 02/01/18 04:57 04:57 04:57 WBC 9.3 RBC 5.27 Hgb 12.9 Hct 41.5 MCV 78.7 L MCH 24.5 L MCHC 31.1 L RDW 17.3 H Plt Count 213 MPV 8.7 Neut % (Auto) 66.5 Lymph % (Auto) 19.7 L [place] % (Auto) 8.8 Eos % (Auto) 4.0 Baso % (Auto) 1.0 Neut # (Auto) 6.2 Lymph # (Auto) 1.8 [place] # (Auto) 0.8 Eos # (Auto) 0.4 Baso # (Auto) 0.1 PT 11.6 INR 1.0 APTT 33 Sodium 144 Potassium 4.1 Chloride 101 Carbon Dioxide 28 Anion Gap 19 BUN 23 H Creatinine 1.3 Est GFR ( Amer) > 60 Est GFR (Non-Af Amer) 55 POC Glucose (mg/dL) Random Glucose 110 Calcium 8.7 Total Bilirubin 0.5 AST 36 ALT 27 Alkaline Phosphatase 44 Total Creatine Kinase CK-MB (Mass) Troponin I 0.0360 NT-Pro-B Natriuret Pep 635 Total Protein 7.5 Albumin 3.9 Globulin 3.6 Albumin/Globulin Ratio 1.1 Lipase 129 02/01/18 02/01/18 02/01/18 11:18 11:43 16:29 WBC RBC Hgb Hct MCV MCH MCHC RDW Plt Count MPV Neut % (Auto) Lymph % (Auto) [place] % (Auto) Eos % (Auto) Baso % (Auto) Neut # (Auto) Lymph # (Auto) [place] # (Auto) Eos # (Auto) Baso # (Auto) PT INR APTT Sodium Potassium Chloride Carbon Dioxide Anion Gap BUN Creatinine Est GFR ( Amer) Est GFR (Non-Af Amer) POC Glucose (mg/dL) 158 H Random Glucose Calcium Total Bilirubin AST ALT Alkaline Phosphatase Total Creatine Kinase 284 H 288 H CK-MB (Mass) 4.15 H 4.24 H Troponin I 0.0300 0.0200 NT-Pro-B Natriuret Pep Total Protein Albumin Globulin Albumin/Globulin Ratio Lipase 02/01/18 16:53 WBC RBC Hgb Hct MCV MCH MCHC RDW Plt Count MPV Neut % (Auto) Lymph % (Auto) [place] % (Auto) Eos % (Auto) Baso % (Auto) Neut # (Auto) Lymph # (Auto) [place] # (Auto) Eos # (Auto) Baso # (Auto) PT INR APTT Sodium Potassium Chloride Carbon Dioxide Anion Gap BUN Creatinine Est GFR ( Amer) Est GFR (Non-Af Amer) POC Glucose (mg/dL) 151 H Random Glucose Calcium Total Bilirubin AST ALT Alkaline Phosphatase Total Creatine Kinase CK-MB (Mass) Troponin I NT-Pro-B Natriuret Pep Total Protein Albumin Globulin Albumin/Globulin Ratio Lipase
[2018-02-02 08:12] VITALS: PULSE 55; TEMP 97.9; O2SAT 96
[2018-02-02] MEDS: (Novolog) Insulin Aspart, Recombinant 100 u/ml 10 ml vial SC SCH ×2 (08:13→12:39)
[2018-02-02 09:43] VITALS: BP 110/60
[2018-02-02 11:02] LABS: HEMOGLOBIN 12.4 g/dL (12.0-18.0); MEAN CELL VOLUME 79.4 fL (80.0-94.0); MEAN CORPUSCULAR HGB CONC 31.5 g/dL (33.0-37.0); MEAN PLATELET VOLUME 9.2 fL (7.2-11.7); RBC 4.96 Mil/uL (4.40-5.90); RED CELL DISTRIBUTION WIDTH 17.2 % (11.5-14.5); WHITE BLOOD COUNT 7.1 K/uL (4.8-10.8)
[2018-02-02 11:05] LABS: ALB/GLOB RATIO 1.2 (1.0-2.1); ALT/SGPT 31 U/L (21-72); AST/SGOT 40 U/L (17-59); BLOOD UREA NITROGEN 25 mg/dL (9-20); CALCIUM 8.6 mg/dl (8.6-10.4); GFR AFRICAN-AMERICAN > 60; GFR NON-AFRICAN AMERICAN > 60
--- NOTE | 2018-02-02 13:01 | CP.PCM.PN ---
Subjective - Date & Time of Evaluation Date of Evaluation: 02/02/18 Time of Evaluation: 10:40 - Subjective Subjective: clinically same Objective - Vital Signs/Intake and Output Vital Signs (last 24 hours): Temp Pulse Resp BP Pulse Ox 97.9 F 55 L 20 110/60 96 02/02/18 08:11 02/02/18 08:11 02/02/18 08:11 02/02/18 09:39 02/02/18 08:11 Intake and Output: 02/02/18 02/02/18 06:59 18:59 Intake Total 0 Balance 0 - Medications Medications: Current Medications Aspirin (Ecotrin) 81 mg PO DAILY [facility] Last Admin: 02/02/18 09:40 Dose: 81 mg Carvedilol (Coreg) 12.5 mg PO BID [facility] Last Admin: 02/02/18 09:39 Dose: 12.5 mg Famotidine (Pepcid) 20 mg PO DAILY [facility] Last Admin: 02/02/18 09:39 Dose: 20 mg Furosemide (Lasix) 40 mg PO DAILY [facility] Last Admin: 02/02/18 09:39 Dose: 40 mg Gabapentin (Neurontin) 400 mg PO TID [facility] Last Admin: 02/02/18 09:39 Dose: 400 mg Heparin Sodium (Porcine) (Heparin) 5,000 units SC Q12 [facility] Last Admin: 02/02/18 09:40 Dose: 5,000 units Insulin Aspart (Novolog) 0 unit SC ACHS [facility] PRN Reason: Protocol Last Admin: 02/02/18 12:39 Dose: 1 unit Levetiracetam (Keppra) 500 mg PO BID [facility] Last Admin: 02/02/18 09:40 Dose: 500 mg Lisinopril (Zestril) 20 mg PO DAILY [facility] Last Admin: 02/02/18 09:39 Dose: 20 mg Rosuvastatin Calcium (Crestor) 10 mg PO HS [facility] Last Admin: 02/01/18 21:37 Dose: 10 mg Ticagrelor (Brilinta) 90 mg PO BID [facility] Last Admin: 02/02/18 09:39 Dose: 90 mg - Labs Labs: 02/02/18 10:46 02/02/18 10:42 PT 11.6 SECONDS (9.7-12.2) 02/01/18 04:57 INR 1.0 02/01/18 04:57 APTT 33 SECONDS (21-34) 02/01/18 04:57 - Constitutional Appears: Well - Head Exam Head Exam: ATRAUMATIC, NORMAL INSPECTION, NORMOCEPHALIC - Eye Exam Eye Exam: EOMI, Normal appearance, PERRL Pupil Exam: NORMAL ACCOMODATION, PERRL - ENT Exam ENT Exam: Mucous Membranes Moist, Normal Exam - Neck Exam Neck Exam: Full ROM, Normal Inspection. absent: Lymphadenopathy - Respiratory Exam Respiratory Exam: Decreased Breath Sounds - Cardiovascular Exam Cardiovascular Exam: REGULAR RHYTHM, +S1, +S2 - GI/Abdominal Exam GI & Abdominal Exam: Soft, Diminished Bowel Sounds - Rectal Exam Rectal Exam: Deferred Assessment and Plan - Assessment and Plan (Free Text) Plan: for d/c cleared by sarah discussed ith pt rafa same mx as ordered
--- NOTE | 2018-02-02 15:34 | CP.PCM.PN ---
Subjective - Date & Time of Evaluation Date of Evaluation: 02/02/18 Time of Evaluation: 11:00 - Subjective Subjective: Alert and orientedx3, denies sob or chest pains, NAD. Objective - Vital Signs/Intake and Output Vital Signs (last 24 hours): Temp Pulse Resp BP Pulse Ox 97.9 F 55 L 20 110/60 96 02/02/18 08:11 02/02/18 08:11 02/02/18 08:11 02/02/18 09:39 02/02/18 08:11 Intake and Output: 02/02/18 02/02/18 06:59 18:59 Intake Total 0 Balance 0 - Medications Medications: Current Medications Aspirin (Ecotrin) 81 mg PO DAILY [facility] Last Admin: 02/02/18 09:40 Dose: 81 mg Carvedilol (Coreg) 12.5 mg PO BID [facility] Last Admin: 02/02/18 09:39 Dose: 12.5 mg Famotidine (Pepcid) 20 mg PO DAILY [facility] Last Admin: 02/02/18 09:39 Dose: 20 mg Furosemide (Lasix) 40 mg PO DAILY [facility] Last Admin: 02/02/18 09:39 Dose: 40 mg Gabapentin (Neurontin) 400 mg PO TID [facility] Last Admin: 02/02/18 13:03 Dose: 400 mg Heparin Sodium (Porcine) (Heparin) 5,000 units SC Q12 [facility] Last Admin: 02/02/18 09:40 Dose: 5,000 units Insulin Aspart (Novolog) 0 unit SC ACHS [facility] PRN Reason: Protocol Last Admin: 02/02/18 12:39 Dose: 1 unit Levetiracetam (Keppra) 500 mg PO BID [facility] Last Admin: 02/02/18 09:40 Dose: 500 mg Lisinopril (Zestril) 20 mg PO DAILY [facility] Last Admin: 02/02/18 09:39 Dose: 20 mg Rosuvastatin Calcium (Crestor) 10 mg PO HS [facility] Last Admin: 02/01/18 21:37 Dose: 10 mg Ticagrelor (Brilinta) 90 mg PO BID [facility] Last Admin: 02/02/18 09:39 Dose: 90 mg - Labs Labs: 02/02/18 10:46 02/02/18 10:42 PT 11.6 SECONDS (9.7-12.2) 02/01/18 04:57 INR 1.0 02/01/18 04:57 APTT 33 SECONDS (21-34) 02/01/18 04:57 Assessment and Plan - Assessment and Plan (Free Text) Assessment: Patient is seen and examined. Pleasant, alert, denies any chest pains or distress. Cleared by DR Montanez for discharge back to group home today as per DR Crsytal Lux. Will continue present meds and follow up with DR Montanez for further cardiology work ups.
--- NOTE | 2018-02-02 16:08 | PCM.HF ---
Heart Failure Core Measure - Heart Failure Ejection Fraction: 40 % or Greater (EF 44%) SWATHI Inhibitor Prescribed: Yes Beta-Coretta Prescribed: Bisoprolol, Carvedilol Angiotensin II Receptor Coretta Prescribed: No Contraindication/Reason for not providing: on swathi AnticoagulationTherapy for Atrial Fibrillation/Atrialflutter: No Contraindication/Reason for not providing: no afib Aldosterone Antagonist Prescribed: No Contraindication/Reason for not providing: EF >40% Hydralazine Nitrate Prescribed: No Contraindication/Reason for not providing: EF >40% Implantable Cardioverter Defibrillator Therapy: Yes Cardiac Resynchronization Therapy Prescribed: No Contraindication/Reason for not providing: not indicated - Follow up Will be discharged to: [facility] ([facility])
[2018-02-02 22:16] LABS: URINE BILIRUBIN NEGATIVE (NEGATIVE); URINE BLOOD NEGATIVE (NEGATIVE); URINE CLARITY Clear (Clear); URINE COLOR Yellow (YELLOW); URINE GLUCOSE (UA) NORMAL (Normal); URINE LEUKOCYTE ESTERASE NEG Leu/uL (Negative); URINE PROTEIN 1+ mg/dL (NEGATIVE); URINE UROBILINOGEN NORMAL mg/dL (0.2-1.0)
== END 2018-02-02 15:38 | DRG 313 ==
LOC: C.ER 04:31 → C.6T 05:53
PROVIDERS: ADMIT Internal Medicine Nephrology; ATTEND Internal Medicine Nephrology
DX: R07.9 Chest pain, unspecified (principal); I50.42 Chronic combined systolic (congestive) and diastolic (congestive) heart failure; I11.0 Hypertensive heart disease with heart failure; I25.10 Atherosclerotic heart disease of native coronary artery without angina pectoris; I25.5 Ischemic cardiomyopathy; E78.00 Pure hypercholesterolemia, unspecified; J44.9 Chronic obstructive pulmonary disease, unspecified; E11.9 Type 2 diabetes mellitus without complications; Z86.73 Personal history of transient ischemic attack (TIA), and cerebral infarction without residual deficits; Z95.0 Presence of cardiac pacemaker; Z95.5 Presence of coronary angioplasty implant and graft; Z87.891 Personal history of nicotine dependence

== ENCOUNTER 2018-02-23 12:27 | Inpatient (IN) | payer MEDICARE, MEDICAID ==
[2018-02-23 12:28] VITALS: BMI 32.5
[2018-02-23] MEDS ORDERED: Albuterol 0.083% Inhal Sol (2.5 mg/3 mL) UD IH STA (13:08)
[2018-02-23] MEDS ORDERED: Albuterol 0.083% Inhal Sol (2.5 mg/3 mL) UD ONE (13:32)
--- NOTE | 2018-02-23 14:29 | C.PDOC ---
History Of Present Illness 67-year-old male, PMHx includes COPD, CHF, Diabetes, CAD s/p CABG (stents x9), and CVA (affecting right side), presents to the emergency department with complaints of worsening shortness of breath for the past few days, which is associated with leg swelling, and decreased appetite. Patient states he lost 10lbs progressively over the past three weeks. Patient was discharged from [facility] three weeks ago and notes symptoms have all been progressive. Pt has no pain. Denies fever, nausea/vomiting, chest pain, dizziness, back pain, or any other associated symptoms. Time Seen by Provider: 02/23/18 12:51 Chief Complaint (Nursing): Shortness Of Breath History Per: Patient History/Exam Limitations: no limitations Onset/Duration Of Symptoms: Days Current Symptoms Are (Timing): Still Present Past Medical History Reviewed: Historical Data, Nursing Documentation, Vital Signs Vital Signs: Last Vital Signs Temp 98.1 F 02/24/18 07:00 Pulse 66 02/24/18 07:05 Resp 20 02/24/18 07:00 BP 140/90 02/24/18 10:12 Pulse Ox 96 02/24/18 12:17 - Medical History PMH: Arthritis, Asthma, CAD, Cardia Arrhythmia, CHF, COPD, CVA (affecting right side of body), Depression (denies), Diabetes, Gastritis, HTN, Hypercholesterolemia Denies: Fractures, Chronic Kidney Disease Surgical History: CABG (BENDER to LAD, SVG to OM1,OM2, SVG to Diag, SVG to PDA. AVR/MVR (bioprosth)), Coronary Stent (x9), Pacemaker - [facility] Procedures CORONAR ARTERIOGR-2 CATH (07/19/14) DILATION OF CORONARY ARTERY, ONE SITE, PERCUTANEOUS APPROACH (05/20/16) INSERTION OF INFUSION DEV INTO SUP VENA CAVA, PERC APPROACH (01/19/17) INSPECTION OF LARYNX, ENDO (04/23/16) LEFT HEART CARDIAC CATH (07/19/14) LT HEART ANGIOCARDIOGRAM (07/19/14) MEASURE CARDIAC SAMPL & PRESSURE, BILATERAL, PERC (07/08/17) MEASURE OF CARDIAC SAMPL & PRESSURE, L HEART, PERC APPROACH (05/20/16) PLAIN RADIOGRAPHY OF L INT MAMM GRAFT USING OTH CONTRAST (05/20/16) PLAIN RADIOGRAPHY OF LEFT HEART USING OTHER CONTRAST (05/20/16) PLAIN RADIOGRAPHY OF MULT COR A GRAFT USING OTH CONTRAST (07/08/17) PLAIN RADIOGRAPHY OF MULT COR ART USING OTH CONTRAST (07/08/17) PLAIN RADIOGRAPHY OF RIGHT AND LEFT HEART USING OTH CONTRAST (07/08/17) ULTRASONOGRAPHY OF RIGHT AND LEFT HEART, TRANSESOPHAGEAL (01/19/17) Family History: States: No Known Family Hx - Social History Hx Tobacco Use: No Hx Alcohol Use: No Hx Substance Use: No - Immunization History Hx Tetanus Toxoid Vaccination: Yes Hx Influenza Vaccination: Yes Hx Pneumococcal Vaccination: Yes Review Of Systems Constitutional: Positive for: Weight loss (10 lbs in 3 weeks.), Other ( decreased appetite.). Negative for: Fever, Chills, Malaise Cardiovascular: Positive for: Edema. Negative for: Chest Pain, Palpitations Respiratory: Positive for: Shortness of Breath Gastrointestinal: Negative for: Vomiting Musculoskeletal: Negative for: Back Pain Neurological: Negative for: Weakness, Numbness, Headache, Dizziness Physical Exam - Physical Exam Appears: Non-toxic, In Acute Distress (in mild respiratory distress , no retractions, improved with nasal cannula. ) Skin: Warm, Dry, No Rash Head: Atraumatic, Normacephalic Eye(s): bilateral: Normal Inspection, EOMI Nose: Normal Oral Mucosa: Moist Lips: Normal Appearing Throat: Normal, No Erythema, No Exudate Neck: Normal, Normal ROM, Supple Chest: Symmetrical Cardiovascular: Rhythm Regular Respiratory: No Decreased Breath Sounds, No Accessory Muscle Use, Rales Gastrointestinal/Abdominal: Soft, Tenderness, Distention, No Guarding, No Rebound Back: No CVA Tenderness, No Vertebral Tenderness Extremity: Pedal Edema (B/L lower extremities), No Deformity Neurological/Psych: Oriented x3, Normal Speech ED Course And Treatment - Laboratory Results Result Diagrams: 02/23/18 14:26 02/23/18 14:26 ECG: Interpreted By Me (Dr Mcelroy), Viewed By Me ECG Rhythm: Sinus Rhythm Rate From EC O2 Sat by Pulse Oximetry: 96 (RA) Pulse Ox Interpretation: Normal - Radiology CXR: Interpreted by Me, Viewed By Me CXR Interpretation: Yes: Other (mild congestion) Progress Note: Prior Visits. Notes and records from previous visits were reviewed. Patient had a VQ scan on 01/16, that did not reveal any findings suggestive of PE. EKG, Bloodwork, Chest X-Ray and O2 via NC/Peak flow ordered and reviewed. Patient treated with Albuterol and Lasix. Case discussed with Dr Lux, agreed upon plan and admission. Disposition - Disposition Disposition: HOSPITALIZED Disposition Time: 12:15 Condition: STABLE - Clinical Impression Clinical Impression: Hypoxia, CHF (congestive heart failure) - Scribe Statement The provider has reviewed the documentation as recorded by the Scribe (Riaz Cooper) All medical record entries made by the Scribe were at my direction and personally dictated by me. I have reviewed the chart and agree that the record accurately reflects my personal performance of the history, physical exam, medical decision making, and the department course for this patient. I have also personally directed, reviewed, and agree with the discharge instructions and disposition.
[2018-02-23 14:30] LABS: BASO # 0.1 K/uL (0.0-0.2); BASO % 0.9 % (0.0-2.0); EOS # 0.3 K/uL (0.0-0.7); LYMPH # 0.9 K/uL (1.0-4.3); LYMPH % 8.2 % (20.0-40.0); MEAN CORPUSCULAR HEMOGLOBIN 24.5 pg (27.0-31.0); MEAN CORPUSCULAR HGB CONC 30.9 g/dL (33.0-37.0); MEAN PLATELET VOLUME 8.6 fL (7.2-11.7); MONO # 0.6 K/uL (0.0-0.8); MONO % 6.1 % (0.0-10.0); NEUT # 8.6 K/uL (1.8-7.0); NEUT % 81.8 % (50.0-75.0); PLATELET COUNT 167 K/uL (130-400); RBC 4.91 Mil/uL (4.40-5.90); RED CELL DISTRIBUTION WIDTH 17.7 % (11.5-14.5); WHITE BLOOD COUNT 10.5 K/uL (4.8-10.8)
[2018-02-23 14:46] LABS: ALB/GLOB RATIO 1.2 (1.0-2.1); ALT/SGPT 27 U/L (21-72); AST/SGOT 66 U/L (17-59); BLOOD UREA NITROGEN 17 mg/dL (9-20); CALCIUM 8.6 mg/dl (8.6-10.4); GFR AFRICAN-AMERICAN > 60; GFR NON-AFRICAN AMERICAN > 60
[2018-02-23 14:48] LABS: BASOPHIL 1 % (0-2); EOSINOPHIL 4 % (0-4); HYPOCHROMIC SLIGHT; LYMPHOCYTE 8 % (20-40); MONOCYTE 5 % (0-10); NEUTROPHIL 82 % (50-75); PLATELET ESTIMATE NORMAL (NORMAL); POLYCHROMIC SLIGHT; TOTAL CELLS COUNTED 100
[2018-02-23 14:49] LABS: ANISOCYTOSIS MODERATE; MICROCYTOSIS SLIGHT; OVALOCYTES SLIGHT; POIKILOCYTOSIS SLIGHT; SCHISTOCYTES SLIGHT
[2018-02-23 14:50] LABS: LARGE PLATELETS PRESENT
[2018-02-23 14:54] LABS: B-TYPE NATRIURETIC PEPTIDE 2750 pg/mL (0-900)
[2018-02-23 15:28] LABS: CK-MB 7.11 ng/mL (0.0-3.38)
[2018-02-23 15:30] LABS: INR 1.1; PROTHROMBIN TIME 12.7 SECONDS (9.7-12.2)
[2018-02-23 15:43] LABS: VENOUS BLOOD GAS BASE EXCESS -1.8 mmol/L (0.0-2.0); VENOUS BLOOD GAS PCO2 48 mmHg (40-60); VENOUS BLOOD GAS PO2 36 mm/Hg (30-55); VENOUS BLOOD PH 7.32 (7.32-7.43)
--- NOTE | 2018-02-23 17:37 | RAD ---
PROCEDURE: CHEST RADIOGRAPH, 1 VIEW HISTORY: SOB COMPARISON: Comparison made with prior chest radiograph dated 02/01/2018. Comparison also made with CT scan chest 08/27/2017 FINDINGS: Note that the examination is slightly limited due to obscuration of the medial lung apices due to overlying facial soft tissue and mandible artifact. LUNGS: Mild central pulmonary vascular congestive changes are felt to be present. Suspect mild bibasilar atelectasis. Possible tiny bilateral effusions. PLEURA: As above. No apparent pneumothorax CARDIOVASCULAR: Heart remains enlarged. No change bipolar pacemaker. Sternotomy with CABG clips. Re- demonstrated is a prostatic aortic valve. Previously noted prostatic mitral valve is less well seen on this study compared to high-resolution CT chest. OSSEOUS STRUCTURES: No significant abnormalities. VISUALIZED UPPER ABDOMEN: Normal. OTHER FINDINGS: None. IMPRESSION: Limited study due to obscuration of the medial lung apices. Mild central pulmonary vascular congestion. Suspect mild bibasilar atelectasis. Possible tiny bilateral effusions.
[2018-02-23] MEDS: cefTRIAXone IV 1 gm in Dextros 50 ML IVPB SCH (19:39)
[2018-02-23] MEDS: Enoxaparin 40 mg Syringe SC SCH (19:41)
[2018-02-23] MEDS: Azithromycin 500 MG in Sodium Chloride 0.9% 250 ML IVPB SCH (19:44)
[2018-02-23] MEDS: Albuterol-Ipratrop 3 mg / 0.5 (3 ml) UD INH SCH (19:57)
--- NOTE | 2018-02-23 20:46 | CP.PCM.HP ---
Past Patient History - Infectious Disease Hx of Infectious Diseases: None - Past Medical History & Family History Past Medical History?: Yes - Past Social History Smoking Status: Former Smoker - CARDIAC Hx Cardia Arrhythmia: Yes Hx Congestive Heart Failure: Yes Hx Hypercholesterolemia: Yes Hx Hypertension: Yes Hx Pacemaker: Yes - PULMONARY Hx Asthma: Yes Hx Chronic Obstructive Pulmonary Disease (COPD): Yes - HEENT Hx HEENT Problems: No - RENAL Hx Chronic Kidney Disease: No - ENDOCRINE/METABOLIC Hx Diabetes Mellitus Type 2: Yes - INTEGUMENTARY Hx Dermatological Problems: No Other/Comment: abdominal area with surgical scars - MUSCULOSKELETAL/RHEUMATOLOGICAL Hx Arthritis: Yes Hx Fractures: No - GASTROINTESTINAL Hx Gastritis: Yes - PSYCHIATRIC Hx Depression: Yes (denies) Hx Substance Use: No - SURGICAL HISTORY Hx Coronary Artery Bypass Graft: Yes (BENDER to LAD, SVG to OM1,OM2, SVG to Diag, SVG to PDA. AVR/MVR (bioprosth)) Hx Coronary Stent: Yes (x9) - ANESTHESIA Hx Anesthesia: Yes Hx Anesthesia Reactions: No Hx Malignant Hyperthermia: No Meds Allergies/Adverse Reactions: Allergies Allergy/AdvReac Type Severity Reaction Status Date / Time iodine Allergy Intermediate SHORTNESS Verified 01/16/18 18:43 OF BREATH shellfish derived Allergy Intermediate ANGIOEDEMA Verified 01/16/18 18:43 milk Allergy Mild SHORTNESS Verified 01/16/18 18:43 OF BREATH Physical Exam - Constitutional Appears: Well - Head Exam Head Exam: ATRAUMATIC, NORMAL INSPECTION, NORMOCEPHALIC - Eye Exam Eye Exam: EOMI, Normal appearance, PERRL Pupil Exam: NORMAL ACCOMODATION, PERRL - ENT Exam ENT Exam: Mucous Membranes Moist, Normal Exam - Neck Exam Neck exam: Positive for: Normal Inspection - Respiratory Exam Respiratory Exam: Decreased Breath Sounds - Cardiovascular Exam Cardiovascular Exam: REGULAR RHYTHM, +S1, +S2 - GI/Abdominal Exam GI & Abdominal Exam: Diminished Bowel Sounds, Soft - Rectal Exam Rectal Exam: Deferred Results - Vital Signs Recent Vital Signs: Last Vital Signs Temp 97.6 F 02/23/18 17:00 Pulse 67 02/23/18 20:02 Resp 20 02/23/18 17:00 BP 154/96 H 02/23/18 19:41 Pulse Ox 95 02/23/18 17:00 - Labs Result Diagrams: 02/23/18 14:26 02/23/18 14:26 Labs: Laboratory Results - last 24 hr 02/23/18 02/23/18 02/23/18 12:36 14:26 14:26 WBC 10.5 RBC 4.91 Hgb 12.0 Hct 38.8 MCV 79.0 L MCH 24.5 L MCHC 30.9 L RDW 17.7 H Plt Count 167 MPV 8.6 Neut % (Auto) 81.8 H Lymph % (Auto) 8.2 L [place] % (Auto) 6.1 Eos % (Auto) 3.0 Baso % (Auto) 0.9 Neut # (Auto) 8.6 H Lymph # (Auto) 0.9 L [place] # (Auto) 0.6 Eos # (Auto) 0.3 Baso # (Auto) 0.1 Neutrophils % (Manual) 82 H Lymphocytes % (Manual) 8 L Monocytes % (Manual) 5 Eosinophils % (Manual) 4 Basophils % (Manual) 1 Platelet Estimate Normal Large Platelets Present Polychromasia Slight Hypochromasia (manual) Slight Poikilocytosis (manual Slight Anisocytosis (manual) Moderate Microcytosis (manual) Slight Ovalocytes Slight Schistocytes Slight PT INR APTT pO2 VBG pH VBG pCO2 VBG HCO3 VBG Total CO2 VBG O2 Sat (Calc) VBG Base Excess VBG Potassium Glucose Lactate Sodium 138 Potassium 4.6 Chloride 101 Carbon Dioxide 21 L Anion Gap 20 BUN 17 Creatinine 1.1 Est GFR ( Amer) > 60 Est GFR (Non-Af Amer) > 60 POC Glucose (mg/dL) 258 H Random Glucose 217 H Calcium 8.6 Total Bilirubin 0.9 AST 66 H D ALT 27 Alkaline Phosphatase 56 Total Creatine Kinase 272 H CK-MB (Mass) 7.11 H Troponin I 0.0210 NT-Pro-B Natriuret Pep 2750 H Total Protein 7.2 Albumin 4.0 Globulin 3.3 Albumin/Globulin Ratio 1.2 Venous Blood Potassium 02/23/18 02/23/18 02/23/18 15:00 15:40 17:58 WBC RBC Hgb Hct MCV MCH MCHC RDW Plt Count MPV Neut % (Auto) Lymph % (Auto) [place] % (Auto) Eos % (Auto) Baso % (Auto) Neut # (Auto) Lymph # (Auto) [place] # (Auto) Eos # (Auto) Baso # (Auto) Neutrophils % (Manual) Lymphocytes % (Manual) Monocytes % (Manual) Eosinophils % (Manual) Basophils % (Manual) Platelet Estimate Large Platelets Polychromasia Hypochromasia (manual) Poikilocytosis (manual Anisocytosis (manual) Microcytosis (manual) Ovalocytes Schistocytes PT 12.7 H INR 1.1 APTT 33 pO2 36 VBG pH 7.32 VBG pCO2 48 VBG HCO3 22.6 VBG Total CO2 26.2 VBG O2 Sat (Calc) 70.8 H VBG Base Excess -1.8 L VBG Potassium 3.3 L Glucose 180 H Lactate 1.8 Sodium 143.0 Potassium Chloride 109.0 H Carbon Dioxide Anion Gap BUN Creatinine Est GFR ( Amer) Est GFR (Non-Af Amer) POC Glucose (mg/dL) 150 H Random Glucose Calcium Total Bilirubin AST ALT Alkaline Phosphatase Total Creatine Kinase CK-MB (Mass) Troponin I NT-Pro-B Natriuret Pep Total Protein Albumin Globulin Albumin/Globulin Ratio Venous Blood Potassium 3.3 L
[2018-02-24] MEDS: Albuterol-Ipratrop 3 mg / 0.5 (3 ml) UD INH SCH ×4 (03:15→20:29)
[2018-02-24] MEDS: Enoxaparin 40 mg Syringe SC SCH (09:49)
[2018-02-24] MEDS ORDERED: POTASSIUM CHLORIDE PO SCH (10:00)
--- NOTE | 2018-02-24 13:58 | CP.PCM.PN ---
Subjective - Date & Time of Evaluation Date of Evaluation: 02/24/18 Time of Evaluation: 11:00 - Subjective Subjective: clinically same Objective - Vital Signs/Intake and Output Vital Signs (last 24 hours): Temp Pulse Resp BP Pulse Ox 98.1 F 66 20 140/90 96 02/24/18 07:00 02/24/18 07:05 02/24/18 07:00 02/24/18 10:12 02/24/18 12:19 Intake and Output: 02/24/18 02/24/18 06:59 18:59 Intake Total 200 Balance 200 - Medications Medications: Current Medications Albuterol/Ipratropium (Duoneb 3 Mg/0.5 Mg (3 Ml) Ud) 3 ml INH RQ6 [facility] Last Admin: 02/24/18 13:17 Dose: 3 ml Aspirin (Ecotrin) 81 mg PO DAILY [facility] Last Admin: 02/24/18 10:12 Dose: 81 mg Carvedilol (Coreg) 12.5 mg PO BID [facility] Last Admin: 02/24/18 09:49 Dose: 12.5 mg Enoxaparin Sodium (Lovenox) 40 mg SC DAILY [facility] Last Admin: 02/24/18 09:49 Dose: 40 mg Furosemide (Lasix) 40 mg IVP BID [facility] Last Admin: 02/24/18 10:12 Dose: 40 mg Gabapentin (Neurontin) 400 mg PO TID [facility] Last Admin: 02/24/18 13:11 Dose: 400 mg Glimepiride (Amaryl) 4 mg PO DAILY [facility] Last Admin: 02/24/18 10:12 Dose: 4 mg Home Med (Potassium Chloride) 1 tab PO DAILY [facility] Ceftriaxone Sodium (Rocephin Iv 1 Gm Duplex) 50 mls @ 100 mls/hr IVPB Q24H [facility] PRN Reason: Protocol Last Admin: 02/23/18 19:39 Dose: 100 mls/hr Azithromycin 500 mg/ Sodium (Chloride) 250 mls @ 250 mls/hr IVPB Q24H [facility] PRN Reason: Protocol Last Admin: 02/23/18 19:44 Dose: 250 mls/hr Lisinopril (Zestril) 20 mg PO DAILY [facility] Last Admin: 02/24/18 10:12 Dose: 20 mg Metformin HCl (Glucophage) 1,000 mg PO BID [facility] Last Admin: 02/24/18 09:49 Dose: 1,000 mg Rosuvastatin Calcium (Crestor) 10 mg PO HS [facility] Last Admin: 02/23/18 22:01 Dose: 10 mg Ticagrelor (Brilinta) 90 mg PO BID [facility] Last Admin: 02/24/18 09:50 Dose: 90 mg - Labs Labs: 02/23/18 14:26 02/23/18 14:26 PT 12.7 SECONDS (9.7-12.2) H 02/23/18 15:00 INR 1.1 02/23/18 15:00 APTT 33 SECONDS (21-34) 02/23/18 15:00 - Constitutional Appears: Well - Head Exam Head Exam: ATRAUMATIC, NORMAL INSPECTION, NORMOCEPHALIC - Eye Exam Eye Exam: EOMI, Normal appearance, PERRL Pupil Exam: NORMAL ACCOMODATION, PERRL - Neck Exam Neck Exam: Full ROM, Normal Inspection. absent: Lymphadenopathy - Respiratory Exam Respiratory Exam: Decreased Breath Sounds - Cardiovascular Exam Cardiovascular Exam: REGULAR RHYTHM, +S1, +S2 - GI/Abdominal Exam GI & Abdominal Exam: Soft, Diminished Bowel Sounds - Rectal Exam Rectal Exam: Deferred
[2018-02-24] MEDS: Azithromycin 500 MG in Sodium Chloride 0.9% 250 ML IVPB SCH (18:21)
[2018-02-24] MEDS: cefTRIAXone IV 1 gm in Dextros 50 ML IVPB SCH (20:02)
[2018-02-25] MEDS: Albuterol-Ipratrop 3 mg / 0.5 (3 ml) UD INH SCH ×4 (01:10→19:34)
--- NOTE | 2018-02-25 08:28 | CP.PCM.CON ---
Past Patient History - Infectious Disease Hx of Infectious Diseases: None - Past Medical History & Family History Past Medical History?: Yes - Past Social History Smoking Status: Former Smoker - CARDIAC Hx Cardia Arrhythmia: Yes Hx Congestive Heart Failure: Yes Hx Hypercholesterolemia: Yes Hx Hypertension: Yes Hx Pacemaker: Yes - PULMONARY Hx Asthma: Yes Hx Chronic Obstructive Pulmonary Disease (COPD): Yes - HEENT Hx HEENT Problems: No - RENAL Hx Chronic Kidney Disease: No - ENDOCRINE/METABOLIC Hx Diabetes Mellitus Type 2: Yes - INTEGUMENTARY Hx Dermatological Problems: No Other/Comment: abdominal area with surgical scars - MUSCULOSKELETAL/RHEUMATOLOGICAL Hx Arthritis: Yes Hx Fractures: No - GASTROINTESTINAL Hx Gastritis: Yes - PSYCHIATRIC Hx Depression: Yes (denies) Hx Substance Use: No - SURGICAL HISTORY Hx Coronary Artery Bypass Graft: Yes (BENDER to LAD, SVG to OM1,OM2, SVG to Diag, SVG to PDA. AVR/MVR (bioprosth)) Hx Coronary Stent: Yes (x9) - ANESTHESIA Hx Anesthesia: Yes Hx Anesthesia Reactions: No Hx Malignant Hyperthermia: No Meds Allergies/Adverse Reactions: Allergies Allergy/AdvReac Type Severity Reaction Status Date / Time iodine Allergy Intermediate SHORTNESS Verified 01/16/18 18:43 OF BREATH shellfish derived Allergy Intermediate ANGIOEDEMA Verified 01/16/18 18:43 milk Allergy Mild SHORTNESS Verified 01/16/18 18:43 OF BREATH - Medications Medications: Current Medications Albuterol/Ipratropium (Duoneb 3 Mg/0.5 Mg (3 Ml) Ud) 3 ml INH RQ6 [facility] Last Admin: 02/25/18 07:32 Dose: 3 ml Aspirin (Ecotrin) 81 mg PO DAILY [facility] Last Admin: 02/24/18 10:12 Dose: 81 mg Carvedilol (Coreg) 12.5 mg PO BID [facility] Last Admin: 02/24/18 17:53 Dose: 12.5 mg Enoxaparin Sodium (Lovenox) 40 mg SC DAILY [facility] Last Admin: 02/24/18 09:49 Dose: 40 mg Furosemide (Lasix) 40 mg IVP BID [facility] Last Admin: 02/24/18 17:54 Dose: 40 mg Gabapentin (Neurontin) 400 mg PO TID [facility] Last Admin: 02/24/18 17:53 Dose: 400 mg Glimepiride (Amaryl) 4 mg PO DAILY [facility] Last Admin: 02/24/18 10:12 Dose: 4 mg Azithromycin 500 mg/ Sodium (Chloride) 250 mls @ 250 mls/hr IVPB Q24H [facility] PRN Reason: Protocol Last Admin: 02/24/18 18:21 Dose: 250 mls/hr Lisinopril (Zestril) 20 mg PO DAILY [facility] Last Admin: 02/24/18 10:12 Dose: 20 mg Metformin HCl (Glucophage) 1,000 mg PO BID [facility] Last Admin: 02/24/18 17:52 Dose: 1,000 mg Rosuvastatin Calcium (Crestor) 10 mg PO HS [facility] Last Admin: 02/24/18 21:44 Dose: 10 mg Ticagrelor (Brilinta) 90 mg PO BID [facility] Last Admin: 02/24/18 17:53 Dose: 90 mg Results - Vital Signs Recent Vital Signs: Last Vital Signs Temp 98.5 F 02/25/18 07:15 Pulse 65 02/25/18 07:15 Resp 20 02/25/18 07:15 BP 146/96 H 02/25/18 07:15 Pulse Ox 99 02/25/18 07:15 - Labs Result Diagrams: 02/23/18 14:26 02/23/18 14:26 Labs: Laboratory Results - last 24 hr 02/24/18 02/24/18 02/25/18 16:22 21:21 06:36 POC Glucose (mg/dL) 126 H 113 H 138 H
--- NOTE | 2018-02-25 08:28 | CP.PCM.CON ---
History of Present Illness - History of Present Illness History of Present Illness: patient seen/examined. consult to follow. progressive lower extermity edema while in rehab facility. Imporving on lasix 40 mg IV BID. recommend continue lasix. will increase to lasix 80 mg PO BID as outpatient Past Patient History - Infectious Disease Hx of Infectious Diseases: None - Past Medical History & Family History Past Medical History?: Yes - Past Social History Smoking Status: Former Smoker - CARDIAC Hx Cardia Arrhythmia: Yes Hx Congestive Heart Failure: Yes Hx Hypercholesterolemia: Yes Hx Hypertension: Yes Hx Pacemaker: Yes - PULMONARY Hx Asthma: Yes Hx Chronic Obstructive Pulmonary Disease (COPD): Yes - HEENT Hx HEENT Problems: No - RENAL Hx Chronic Kidney Disease: No - ENDOCRINE/METABOLIC Hx Diabetes Mellitus Type 2: Yes - INTEGUMENTARY Hx Dermatological Problems: No Other/Comment: abdominal area with surgical scars - MUSCULOSKELETAL/RHEUMATOLOGICAL Hx Arthritis: Yes Hx Fractures: No - GASTROINTESTINAL Hx Gastritis: Yes - PSYCHIATRIC Hx Depression: Yes (denies) Hx Substance Use: No - SURGICAL HISTORY Hx Coronary Artery Bypass Graft: Yes (BENDER to LAD, SVG to OM1,OM2, SVG to Diag, SVG to PDA. AVR/MVR (bioprosth)) Hx Coronary Stent: Yes (x9) - ANESTHESIA Hx Anesthesia: Yes Hx Anesthesia Reactions: No Hx Malignant Hyperthermia: No Meds Allergies/Adverse Reactions: Allergies Allergy/AdvReac Type Severity Reaction Status Date / Time iodine Allergy Intermediate SHORTNESS Verified 01/16/18 18:43 OF BREATH shellfish derived Allergy Intermediate ANGIOEDEMA Verified 01/16/18 18:43 milk Allergy Mild SHORTNESS Verified 01/16/18 18:43 OF BREATH - Medications Medications: Current Medications Albuterol/Ipratropium (Duoneb 3 Mg/0.5 Mg (3 Ml) Ud) 3 ml INH RQ6 [facility] Last Admin: 02/25/18 07:32 Dose: 3 ml Aspirin (Ecotrin) 81 mg PO DAILY [facility] Last Admin: 02/24/18 10:12 Dose: 81 mg Carvedilol (Coreg) 12.5 mg PO BID [facility] Last Admin: 02/24/18 17:53 Dose: 12.5 mg Enoxaparin Sodium (Lovenox) 40 mg SC DAILY [facility] Last Admin: 02/24/18 09:49 Dose: 40 mg Furosemide (Lasix) 40 mg IVP BID [facility] Last Admin: 02/24/18 17:54 Dose: 40 mg Gabapentin (Neurontin) 400 mg PO TID [facility] Last Admin: 02/24/18 17:53 Dose: 400 mg Glimepiride (Amaryl) 4 mg PO DAILY [facility] Last Admin: 02/24/18 10:12 Dose: 4 mg Azithromycin 500 mg/ Sodium (Chloride) 250 mls @ 250 mls/hr IVPB Q24H [facility] PRN Reason: Protocol Last Admin: 02/24/18 18:21 Dose: 250 mls/hr Lisinopril (Zestril) 20 mg PO DAILY [facility] Last Admin: 02/24/18 10:12 Dose: 20 mg Metformin HCl (Glucophage) 1,000 mg PO BID [facility] Last Admin: 02/24/18 17:52 Dose: 1,000 mg Rosuvastatin Calcium (Crestor) 10 mg PO HS [facility] Last Admin: 02/24/18 21:44 Dose: 10 mg Ticagrelor (Brilinta) 90 mg PO BID [facility] Last Admin: 02/24/18 17:53 Dose: 90 mg Results - Vital Signs Recent Vital Signs: Last Vital Signs Temp 98.5 F 02/25/18 07:15 Pulse 65 02/25/18 07:15 Resp 20 02/25/18 07:15 BP 146/96 H 02/25/18 07:15 Pulse Ox 99 02/25/18 07:15 - Labs Result Diagrams: 02/23/18 14:26 02/23/18 14:26 Labs: Laboratory Results - last 24 hr 02/24/18 02/24/18 02/25/18 16:22 21:21 06:36 POC Glucose (mg/dL) 126 H 113 H 138 H
[2018-02-25] MEDS: Enoxaparin 40 mg Syringe SC SCH (09:21)
--- NOTE | 2018-02-25 18:48 | CP.PCM.PN ---
Subjective - Date & Time of Evaluation Date of Evaluation: 02/25/18 Time of Evaluation: 10:20 - Subjective Subjective: clinically same Objective - Vital Signs/Intake and Output Vital Signs (last 24 hours): Temp Pulse Resp BP Pulse Ox 97.9 F 61 20 123/70 99 02/25/18 15:50 02/25/18 15:50 02/25/18 15:50 02/25/18 17:41 02/25/18 15:50 Intake and Output: 02/25/18 02/25/18 06:59 18:59 Intake Total 240 350 Balance 240 350 - Medications Medications: Current Medications Albuterol/Ipratropium (Duoneb 3 Mg/0.5 Mg (3 Ml) Ud) 3 ml INH RQ6 [facility] Last Admin: 02/25/18 13:14 Dose: 3 ml Aspirin (Ecotrin) 81 mg PO DAILY [facility] Last Admin: 02/25/18 09:21 Dose: 81 mg Carvedilol (Coreg) 12.5 mg PO BID [facility] Last Admin: 02/25/18 17:40 Dose: 12.5 mg Enoxaparin Sodium (Lovenox) 40 mg SC DAILY [facility] Last Admin: 02/25/18 09:21 Dose: 40 mg Furosemide (Lasix) 40 mg IVP BID [facility] Last Admin: 02/25/18 17:41 Dose: 40 mg Gabapentin (Neurontin) 400 mg PO TID [facility] Last Admin: 02/25/18 17:40 Dose: 400 mg Glimepiride (Amaryl) 4 mg PO DAILY [facility] Last Admin: 02/25/18 09:20 Dose: 4 mg Azithromycin 500 mg/ Sodium (Chloride) 250 mls @ 250 mls/hr IVPB Q24H [facility] PRN Reason: Protocol Last Admin: 02/24/18 18:21 Dose: 250 mls/hr Lisinopril (Zestril) 20 mg PO DAILY [facility] Last Admin: 02/25/18 09:20 Dose: 20 mg Metformin HCl (Glucophage) 1,000 mg PO BID [facility] Last Admin: 02/25/18 17:39 Dose: 1,000 mg Rosuvastatin Calcium (Crestor) 10 mg PO HS [facility] Last Admin: 02/24/18 21:44 Dose: 10 mg Ticagrelor (Brilinta) 90 mg PO BID [facility] Last Admin: 02/25/18 17:40 Dose: 90 mg - Labs Labs: 02/23/18 14:26 02/23/18 14:26 PT 12.7 SECONDS (9.7-12.2) H 02/23/18 15:00 INR 1.1 02/23/18 15:00 APTT 33 SECONDS (21-34) 02/23/18 15:00 - Constitutional Appears: Well - Head Exam Head Exam: ATRAUMATIC, NORMAL INSPECTION, NORMOCEPHALIC - Eye Exam Eye Exam: EOMI, Normal appearance, PERRL Pupil Exam: NORMAL ACCOMODATION, PERRL - ENT Exam ENT Exam: Mucous Membranes Moist, Normal Exam - Neck Exam Neck Exam: Full ROM, Normal Inspection. absent: Lymphadenopathy - Respiratory Exam Respiratory Exam: Decreased Breath Sounds - Cardiovascular Exam Cardiovascular Exam: REGULAR RHYTHM, +S1, +S2 - GI/Abdominal Exam GI & Abdominal Exam: Soft, Diminished Bowel Sounds - Rectal Exam Rectal Exam: Deferred
[2018-02-25] MEDS: Azithromycin 500 MG in Sodium Chloride 0.9% 250 ML IVPB SCH (19:22)
[2018-02-26] MEDS: Albuterol-Ipratrop 3 mg / 0.5 (3 ml) UD INH SCH ×4 (01:15→19:39)
[2018-02-26] MEDS: Enoxaparin 40 mg Syringe SC SCH (09:15)
--- NOTE | 2018-02-26 10:02 | CP.PCM.PN ---
Subjective - Date & Time of Evaluation Date of Evaluation: 02/26/18 Time of Evaluation: 10:00 - Subjective Subjective: patient feels better. no chest pain Objective - Vital Signs/Intake and Output Vital Signs (last 24 hours): Temp Pulse Resp BP Pulse Ox 98.1 F 62 20 119/75 97 02/26/18 07:20 02/26/18 07:20 02/26/18 07:20 02/26/18 09:18 02/26/18 07:20 Intake and Output: 02/26/18 02/26/18 06:59 18:59 Intake Total 370 Balance 370 - Medications Medications: Current Medications Albuterol/Ipratropium (Duoneb 3 Mg/0.5 Mg (3 Ml) Ud) 3 ml INH RQ6 [facility] Last Admin: 02/26/18 07:26 Dose: 3 ml Aspirin (Ecotrin) 81 mg PO DAILY [facility] Last Admin: 02/26/18 09:14 Dose: 81 mg Carvedilol (Coreg) 12.5 mg PO BID [facility] Last Admin: 02/26/18 09:18 Dose: 12.5 mg Enoxaparin Sodium (Lovenox) 40 mg SC DAILY [facility] Last Admin: 02/26/18 09:15 Dose: 40 mg Furosemide (Lasix) 40 mg IVP BID [facility] Last Admin: 02/26/18 09:18 Dose: 40 mg Gabapentin (Neurontin) 400 mg PO TID [facility] Last Admin: 02/26/18 09:15 Dose: 400 mg Glimepiride (Amaryl) 4 mg PO DAILY [facility] Last Admin: 02/26/18 09:14 Dose: 4 mg Azithromycin 500 mg/ Sodium (Chloride) 250 mls @ 250 mls/hr IVPB Q24H [facility] PRN Reason: Protocol Last Admin: 02/25/18 19:22 Dose: 250 mls/hr Lisinopril (Zestril) 20 mg PO DAILY [facility] Last Admin: 02/26/18 09:14 Dose: 20 mg Metformin HCl (Glucophage) 1,000 mg PO BID [facility] Last Admin: 02/26/18 09:15 Dose: 1,000 mg Rosuvastatin Calcium (Crestor) 10 mg PO HS [facility] Last Admin: 02/25/18 21:38 Dose: 10 mg Ticagrelor (Brilinta) 90 mg PO BID [facility] Last Admin: 02/26/18 09:15 Dose: 90 mg - Labs Labs: 02/23/18 14:26 02/23/18 14:26 PT 12.7 SECONDS (9.7-12.2) H 02/23/18 15:00 INR 1.1 02/23/18 15:00 APTT 33 SECONDS (21-34) 02/23/18 15:00 - Constitutional Appears: Non-toxic - Head Exam Head Exam: NORMAL INSPECTION - Eye Exam Eye Exam: Normal appearance - ENT Exam ENT Exam: Mucous Membranes Moist - Neck Exam Neck Exam: Full ROM - Respiratory Exam Respiratory Exam: NORMAL BREATHING PATTERN - Cardiovascular Exam Cardiovascular Exam: REGULAR RHYTHM - GI/Abdominal Exam GI & Abdominal Exam: Normal Bowel Sounds - Rectal Exam Rectal Exam: Deferred - Extremities Exam Extremities Exam: Pedal Edema - Back Exam Back Exam: NORMAL INSPECTION - Neurological Exam Neurological Exam: Alert - Psychiatric Exam Psychiatric exam: Normal Affect - Skin Skin Exam: Normal Color Assessment and Plan (1) CHF (congestive heart failure) Assessment & Plan: improving. will change to oral diuretics. ambulate Status: Acute
[2018-02-26 10:59] LABS: BASO # 0.1 K/uL (0.0-0.2); EOS # 0.5 K/uL (0.0-0.7); HEMOGLOBIN 12.4 g/dL (12.0-18.0); LYMPH # 0.7 K/uL (1.0-4.3); LYMPH % 8.4 % (20.0-40.0); MEAN CELL VOLUME 78.2 fL (80.0-94.0); MEAN CORPUSCULAR HEMOGLOBIN 24.3 pg (27.0-31.0); MEAN CORPUSCULAR HGB CONC 31.1 g/dL (33.0-37.0); MONO # 0.7 K/uL (0.0-0.8); MONO % 8.2 % (0.0-10.0); NEUT # 6.5 K/uL (1.8-7.0); NEUT % 76.4 % (50.0-75.0); NRBC % 0.1 % (0.0-2.0); PLATELET COUNT 224 K/uL (130-400); RBC 5.09 Mil/uL (4.40-5.90); RED CELL DISTRIBUTION WIDTH 17.5 % (11.5-14.5); WHITE BLOOD COUNT 8.5 K/uL (4.8-10.8)
[2018-02-26 11:14] LABS: BLOOD UREA NITROGEN 24 mg/dL (9-20); CALCIUM 8.6 mg/dl (8.6-10.4); GFR AFRICAN-AMERICAN > 60; GFR NON-AFRICAN AMERICAN 55
[2018-02-26 11:46] LABS: ANISOCYTOSIS SLIGHT; BASOPHIL 1 % (0-2); EOSINOPHIL 4 % (0-4); HYPOCHROMIC SLIGHT; LYMPHOCYTE 7 % (20-40); MONOCYTE 8 % (0-10); NEUTROPHIL 80 % (50-75); PLATELET ESTIMATE NORMAL (NORMAL); POIKILOCYTOSIS SLIGHT; TOTAL CELLS COUNTED 100
[2018-02-26 11:47] LABS: BURR CELLS SLIGHT; OVALOCYTES SLIGHT
--- NOTE | 2018-02-26 13:17 | CP.PCM.PN ---
Subjective - Date & Time of Evaluation Date of Evaluation: 02/26/18 Time of Evaluation: 10:00 - Subjective Subjective: clinically same Objective - Vital Signs/Intake and Output Vital Signs (last 24 hours): Temp Pulse Resp BP Pulse Ox 98.1 F 64 20 119/75 93 L 02/26/18 07:20 02/26/18 08:00 02/26/18 07:20 02/26/18 09:18 02/26/18 12:47 Intake and Output: 02/26/18 02/26/18 06:59 18:59 Intake Total 370 Balance 370 - Medications Medications: Current Medications Albuterol/Ipratropium (Duoneb 3 Mg/0.5 Mg (3 Ml) Ud) 3 ml INH RQ6 [facility] Last Admin: 02/26/18 13:08 Dose: 3 ml Aspirin (Ecotrin) 81 mg PO DAILY [facility] Last Admin: 02/26/18 09:14 Dose: 81 mg Carvedilol (Coreg) 12.5 mg PO BID [facility] Last Admin: 02/26/18 09:18 Dose: 12.5 mg Enoxaparin Sodium (Lovenox) 40 mg SC DAILY [facility] Last Admin: 02/26/18 09:15 Dose: 40 mg Furosemide (Lasix) 40 mg IVP BID [facility] Last Admin: 02/26/18 09:18 Dose: 40 mg Furosemide (Lasix) 80 mg PO BID [facility] Gabapentin (Neurontin) 400 mg PO TID [facility] Last Admin: 02/26/18 09:15 Dose: 400 mg Glimepiride (Amaryl) 4 mg PO DAILY [facility] Last Admin: 02/26/18 09:14 Dose: 4 mg Azithromycin 500 mg/ Sodium (Chloride) 250 mls @ 250 mls/hr IVPB Q24H [facility] PRN Reason: Protocol Last Admin: 02/25/18 19:22 Dose: 250 mls/hr Lisinopril (Zestril) 20 mg PO DAILY [facility] Last Admin: 02/26/18 09:14 Dose: 20 mg Metformin HCl (Glucophage) 1,000 mg PO BID [facility] Last Admin: 02/26/18 09:15 Dose: 1,000 mg Rosuvastatin Calcium (Crestor) 10 mg PO HS [facility] Last Admin: 02/25/18 21:38 Dose: 10 mg Ticagrelor (Brilinta) 90 mg PO BID [facility] Last Admin: 02/26/18 09:15 Dose: 90 mg - Labs Labs: 02/26/18 10:52 02/26/18 10:52 PT 12.7 SECONDS (9.7-12.2) H 02/23/18 15:00 INR 1.1 02/23/18 15:00 APTT 33 SECONDS (21-34) 02/23/18 15:00 - Constitutional Appears: Well - Head Exam Head Exam: ATRAUMATIC, NORMAL INSPECTION, NORMOCEPHALIC - Eye Exam Eye Exam: EOMI, Normal appearance, PERRL Pupil Exam: NORMAL ACCOMODATION, PERRL - ENT Exam ENT Exam: Mucous Membranes Moist, Normal Exam - Neck Exam Neck Exam: Full ROM, Normal Inspection. absent: Lymphadenopathy - Respiratory Exam Respiratory Exam: Decreased Breath Sounds - Cardiovascular Exam Cardiovascular Exam: REGULAR RHYTHM, +S1, +S2 - GI/Abdominal Exam GI & Abdominal Exam: Soft, Diminished Bowel Sounds - Rectal Exam Rectal Exam: Deferred
--- NOTE | 2018-02-26 22:09 | CARD ---
APPROVED REPORT EKG Measurement Heart [id number] <Conclusion> Normal sinus rhythm Nonspecific intraventricular block Abnormal ECG
[2018-02-27] MEDS: Albuterol-Ipratrop 3 mg / 0.5 (3 ml) UD INH SCH ×4 (01:17→19:36)
--- NOTE | 2018-02-27 08:19 | CP.PCM.PN ---
Subjective - Date & Time of Evaluation Date of Evaluation: 02/27/18 Time of Evaluation: 08:10 - Subjective Subjective: patient has no chest pain feels better. Objective - Vital Signs/Intake and Output Vital Signs (last 24 hours): Temp Pulse Resp BP Pulse Ox 98.0 F 56 L 20 115/71 98 02/26/18 23:20 02/27/18 07:35 02/26/18 23:20 02/26/18 23:20 02/26/18 23:20 Intake and Output: 02/27/18 02/27/18 06:59 18:59 Intake Total 250 Balance 250 - Medications Medications: Current Medications Albuterol/Ipratropium (Duoneb 3 Mg/0.5 Mg (3 Ml) Ud) 3 ml INH RQ6 [facility] Last Admin: 02/27/18 07:31 Dose: 3 ml Aspirin (Ecotrin) 81 mg PO DAILY [facility] Last Admin: 02/26/18 09:14 Dose: 81 mg Azithromycin (Zithromax) 500 mg PO Q24H [facility] Last Admin: 02/26/18 19:13 Dose: 500 mg Carvedilol (Coreg) 12.5 mg PO BID [facility] Last Admin: 02/26/18 17:54 Dose: 12.5 mg Enoxaparin Sodium (Lovenox) 40 mg SC DAILY [facility] Last Admin: 02/26/18 09:15 Dose: 40 mg Furosemide (Lasix) 80 mg PO BID [facility] Last Admin: 02/26/18 17:53 Dose: 80 mg Gabapentin (Neurontin) 400 mg PO TID [facility] Last Admin: 02/26/18 17:53 Dose: 400 mg Glimepiride (Amaryl) 4 mg PO DAILY [facility] Last Admin: 02/26/18 09:14 Dose: 4 mg Lisinopril (Zestril) 20 mg PO DAILY [facility] Last Admin: 02/26/18 09:14 Dose: 20 mg Metformin HCl (Glucophage) 1,000 mg PO BID [facility] Last Admin: 02/26/18 17:53 Dose: 1,000 mg Rosuvastatin Calcium (Crestor) 10 mg PO HS [facility] Last Admin: 02/26/18 21:45 Dose: 10 mg Ticagrelor (Brilinta) 90 mg PO BID [facility] Last Admin: 02/26/18 17:53 Dose: 90 mg - Labs Labs: 02/26/18 10:52 02/26/18 10:52 PT 12.7 SECONDS (9.7-12.2) H 02/23/18 15:00 INR 1.1 02/23/18 15:00 APTT 33 SECONDS (21-34) 02/23/18 15:00 - Constitutional Appears: Non-toxic - Head Exam Head Exam: NORMAL INSPECTION - Eye Exam Eye Exam: Normal appearance - ENT Exam ENT Exam: Mucous Membranes Moist - Neck Exam Neck Exam: Normal Inspection - Respiratory Exam Respiratory Exam: Decreased Breath Sounds - Cardiovascular Exam Cardiovascular Exam: REGULAR RHYTHM - GI/Abdominal Exam GI & Abdominal Exam: Normal Bowel Sounds - Rectal Exam Rectal Exam: Deferred - Extremities Exam Extremities Exam: Pedal Edema - Back Exam Back Exam: NORMAL INSPECTION - Neurological Exam Neurological Exam: Alert - Psychiatric Exam Psychiatric exam: Normal Affect - Skin Skin Exam: Normal Color Assessment and Plan (1) CHF (congestive heart failure) Assessment & Plan: acute on chronic systolic. will continue oral diuretic therapy. improved. patient is not wearing his Lifevest Status: Acute
[2018-02-27] MEDS: Enoxaparin 40 mg Syringe SC SCH (10:23)
--- NOTE | 2018-02-27 17:26 | CP.PCM.PN ---
Subjective - Date & Time of Evaluation Date of Evaluation: 02/27/18 Time of Evaluation: 10:20 - Subjective Subjective: clinically same Objective - Vital Signs/Intake and Output Vital Signs (last 24 hours): Temp Pulse Resp BP Pulse Ox 97.9 F 61 20 128/80 98 02/27/18 16:13 02/27/18 16:13 02/27/18 16:13 02/27/18 16:13 02/27/18 16:13 Intake and Output: 02/27/18 02/27/18 06:59 18:59 Intake Total 250 180 Balance 250 180 - Medications Medications: Current Medications Albuterol/Ipratropium (Duoneb 3 Mg/0.5 Mg (3 Ml) Ud) 3 ml INH RQ6 [facility] Last Admin: 02/27/18 13:10 Dose: 3 ml Aspirin (Ecotrin) 81 mg PO DAILY [facility] Last Admin: 02/27/18 10:22 Dose: 81 mg Azithromycin (Zithromax) 500 mg PO Q24H [facility] Last Admin: 02/26/18 19:13 Dose: 500 mg Carvedilol (Coreg) 12.5 mg PO BID [facility] Last Admin: 02/27/18 10:21 Dose: 12.5 mg Enoxaparin Sodium (Lovenox) 40 mg SC DAILY [facility] Last Admin: 02/27/18 10:23 Dose: 40 mg Furosemide (Lasix) 80 mg PO BID [facility] Last Admin: 02/27/18 10:23 Dose: 80 mg Gabapentin (Neurontin) 400 mg PO TID [facility] Last Admin: 02/27/18 13:06 Dose: 400 mg Glimepiride (Amaryl) 4 mg PO DAILY [facility] Last Admin: 02/27/18 10:21 Dose: 4 mg Lisinopril (Zestril) 20 mg PO DAILY [facility] Last Admin: 02/27/18 10:24 Dose: 20 mg Metformin HCl (Glucophage) 1,000 mg PO BID [facility] Last Admin: 02/27/18 10:22 Dose: 1,000 mg Rosuvastatin Calcium (Crestor) 10 mg PO HS [facility] Last Admin: 02/26/18 21:45 Dose: 10 mg Ticagrelor (Brilinta) 90 mg PO BID [facility] Last Admin: 02/27/18 10:21 Dose: 90 mg - Labs Labs: 02/26/18 10:52 02/26/18 10:52 PT 12.7 SECONDS (9.7-12.2) H 02/23/18 15:00 INR 1.1 02/23/18 15:00 APTT 33 SECONDS (21-34) 02/23/18 15:00 - Constitutional Appears: Well - Head Exam Head Exam: ATRAUMATIC, NORMAL INSPECTION, NORMOCEPHALIC - Eye Exam Eye Exam: EOMI, Normal appearance, PERRL Pupil Exam: NORMAL ACCOMODATION, PERRL - ENT Exam ENT Exam: Mucous Membranes Moist, Normal Exam - Neck Exam Neck Exam: Full ROM, Normal Inspection. absent: Lymphadenopathy - Respiratory Exam Respiratory Exam: Decreased Breath Sounds - Cardiovascular Exam Cardiovascular Exam: REGULAR RHYTHM, +S1, +S2 - GI/Abdominal Exam GI & Abdominal Exam: Soft, Diminished Bowel Sounds - Rectal Exam Rectal Exam: Deferred
--- NOTE | 2018-02-27 19:58 | US ---
EXAM: US Abdomen Complete EXAM DATE/TIME: Exam ordered 02/27/2018 3:35 PM CLINICAL HISTORY: 67 years old, male; Pain; Abdominal pain; Generalized; Additional info: Abd. Pain TECHNIQUE: Real-time ultrasound of the abdomen (complete) with image documentation. COMPARISON: No relevant prior studies available. FINDINGS: Liver: The liver is mildly increased in echotexture. The liver measures 19.9 cm in craniocaudal span. There is suboptimal resolution of the liver parenchyma. No intrahepatic bile duct dilation. Gallbladder: Stones and sludge are noted in the neck of the gallbladder. Common bile duct: The common bile duct measures 4 mm. No stones. No dilation. Pancreas: Not well-seen due to bowel gas Kidneys: The right kidney measures 9.5 x 5.5 x 5.5 cm. The left kidney measures 11.2 x 5.3 x 5.5 centimeters. A 1.3 cm simple cyst projects off the midportion of the left kidney. No stones. No hydronephrosis. Spleen: The spleen measures 9.5 cm in craniocaudal span. Aorta: The mid and distal abdominal aorta are not seen due to bowel gas. Inferior vena cava: Unremarkable. Free fluid: There is normal blood flow direction in the main portal vein. IMPRESSION: 1. Cholelithiasis. 2. Mild hepatomegaly with coarsened liver echotexture suggests underlying infiltrative process such as fatty infiltration or fibrosis.
--- NOTE | 2018-02-27 20:07 | US ---
EXAM: US Pelvis Complete, Transabdominal EXAM DATE/TIME: Exam ordered 02/27/2018 3:35 PM CLINICAL HISTORY: 67 years old, male; Signs and symptoms; Other: Dysuria TECHNIQUE: Real-time transabdominal pelvic ultrasound (complete) with image documentation. COMPARISON: No relevant prior studies available. FINDINGS: Free fluid: No free fluid. Bladder: The bladder measures 8.7 x 4.5 x 6.4 cm for a volume of 131 cc. The Prostate: The prostate could not be visualized due to suboptimal bladder distention. Other findings: The patient was unable to void for the examination. IMPRESSION: No acute findings.
[2018-02-28] MEDS: Albuterol-Ipratrop 3 mg / 0.5 (3 ml) UD INH SCH ×4 (01:17→19:22)
[2018-02-28 09:06] VITALS: O2SAT 98
[2018-02-28] MEDS: Enoxaparin 40 mg Syringe SC SCH (09:43)
[2018-02-28 11:19] LABS: BASO # 0.1 K/uL (0.0-0.2); BASO % 1.1 % (0.0-2.0); EOS # 0.4 K/uL (0.0-0.7); EOS % 5.1 % (0.0-4.0); HEMOGLOBIN 12.6 g/dL (12.0-18.0); LYMPH # 0.7 K/uL (1.0-4.3); LYMPH % 8.1 % (20.0-40.0); MEAN CORPUSCULAR HEMOGLOBIN 24.8 pg (27.0-31.0); MEAN CORPUSCULAR HGB CONC 31.8 g/dL (33.0-37.0); MONO # 0.8 K/uL (0.0-0.8); MONO % 9.4 % (0.0-10.0); NEUT # 6.5 K/uL (1.8-7.0); NEUT % 76.3 % (50.0-75.0); PLATELET COUNT 221 K/uL (130-400); RBC 5.09 Mil/uL (4.40-5.90); RED CELL DISTRIBUTION WIDTH 17.7 % (11.5-14.5); WHITE BLOOD COUNT 8.5 K/uL (4.8-10.8)
[2018-02-28 12:23] LABS: BLOOD UREA NITROGEN 24 mg/dL (9-20); CALCIUM 8.9 mg/dl (8.6-10.4); GFR AFRICAN-AMERICAN > 60; GFR NON-AFRICAN AMERICAN > 60
[2018-02-28 12:42] LABS: ANISOCYTOSIS SLIGHT; BANDS 3 % (0-2); BASOPHIL 1 % (0-2); EOSINOPHIL 3 % (0-4); LYMPHOCYTE 8 % (20-40); MONOCYTE 9 % (0-10); NEUTROPHIL 75 % (50-75); OVALOCYTES SLIGHT; PLATELET ESTIMATE NORMAL (NORMAL); REACTIVE LYMPHOCYTES 1 % (0-0); TOTAL CELLS COUNTED 100
--- NOTE | 2018-02-28 13:12 | VASCLAB ---
PROCEDURE: Lower Extremity Venous Duplex Exam. HISTORY: r/o DVT PRIORS: None. TECHNIQUE: Bilateral common femoral, femoral, popliteal and posterior tibial, peroneal and great saphenous veins were evaluated. Flow was assessed with color Doppler, compressibility, assessment of phasic flow and augmentation response. Report prepared by Jose Shabazz, SAMANTHA, RVT FINDINGS: RIGHT: 1. Common Femoral Vein: 1.1. Compressibility - Fully compressible: Thrombus - None : Flow - Phasic: Augmentation -Normal: Reflux - None. 2. Femoral Vein: 2.1. Compressibility - Fully compressible: Thrombus - None : Flow - Phasic: Augmentation -Normal: Reflux - None. 3. Popliteal Vein: 3.1. Compressibility - Fully compressible: Thrombus - None : Flow - Phasic: Augmentation -Normal: Reflux - None. 4. Posterior Tibial Vein: 4.1. Compressibility - Fully compressible: Thrombus - None: Flow - Phasic: Augmentation -Normal: Reflux - None. 5. Peroneal Vein: 5.1. Compressibility - Fully compressible: Thrombus - None: Flow - Phasic: Augmentation -Normal: Reflux - None. 6. Great Saphenous Vein: 6.1. Compressibility - Fully compressible: Thrombus - None: Flow - Phasic: Augmentation - Normal: Reflux - None. LEFT: 1. Common Femoral Vein: 1.1. Compressibility - Fully compressible: Thrombus - None: Flow - Phasic: Augmentation -Normal: Reflux - None. 2. Femoral Vein: 2.1. Compressibility - Fully compressible: Thrombus - None: Flow - Phasic: Augmentation -Normal: Reflux - None. 3. Popliteal Vein: 3.1. Compressibility - Fully compressible: Thrombus - None : Flow - Phasic: Augmentation -Normal: Reflux - None. 4. Posterior Tibial Vein: 4.1. Compressibility - Fully compressible: Thrombus - None: Flow - Phasic: Augmentation -Normal: Reflux - None. 5. Peroneal Vein: 5.1. Compressibility - Fully compressible: Thrombus - None: Flow - Phasic: Augmentation -Normal: Reflux - None. 6. Great Saphenous Vein: 6.1. Compressibility - Fully compressible: Thrombus - None: Flow - Phasic: Augmentation - Normal: Reflux - None. OTHER FINDINGS: Right: None significant. Left: None significant. IMPRESSION: Right: No evidence of deep or superficial vein thrombosis of the right lower extremity. Normal valve function noted of the right side. Left: No evidence of deep or superficial vein thrombosis of the left lower extremity. Normal valve function noted of the left side.
--- NOTE | 2018-02-28 14:53 | CP.PCM.CON ---
<Gagandeep Landa - Last Filed: 02/28/18 17:15> History of Present Illness - History of Present Illness History of Present Illness: PGY5 GI Fellow Consult Note Patient is a 67yo male with PMHx significant for severe CAD s/p CABG and PCI multiple times, CHF, COPD, CVA who presented to the ED with numerous complaints. Patient admits to generalized weakness/malaise for several days leading up to admission. He noted worsening lower extremity edema, shortness of breath and productive cough. Since admission he was treated for a CHF exacerbation and given diuretic therapy with improvement in all symptoms. When interviewed today, he denies any routine abdominal pain, reflux, heartburn, nausea or vomiting. Per patient, he has had intermittent LLQ abdominal pain over the last month. Abdominal ultrasound was performed which revealed gallstones and our service has been consulted for this finding. Currently, patient admits to feeling better overall and denies any abdominal pain, postprandial symptoms, nausea, vomiting, fever, chills. 12 system ROS performed and negative except where stated PMHx: See HPI PSHx: CABG and PCI FHx: Father at 53yo 2/2 CAD Social: Admits to use of tobacco, alcohol and multiple illicit drugs (marijuana , cocaine, heroin) as a young adult Endo: No prior endoscopy or colonoscopy Past Patient History - Infectious Disease Hx of Infectious Diseases: None - Past Medical History & Family History Past Medical History?: Yes - Past Social History Smoking Status: Former Smoker - CARDIAC Hx Congestive Heart Failure: Yes - PULMONARY Hx Chronic Obstructive Pulmonary Disease (COPD): Yes - NEUROLOGICAL HX Cerebrovascular Accident: Yes - HEENT Hx HEENT Problems: No - RENAL Hx Chronic Kidney Disease: No - ENDOCRINE/METABOLIC Hx Diabetes Mellitus Type 2: Yes - INTEGUMENTARY Hx Dermatological Problems: No Other/Comment: abdominal area with surgical scars - MUSCULOSKELETAL/RHEUMATOLOGICAL Hx Arthritis: Yes - GASTROINTESTINAL Hx Gastritis: Yes - PSYCHIATRIC Hx Depression: Yes (denies) Hx Substance Use: No - SURGICAL HISTORY Hx Coronary Artery Bypass Graft: Yes (BENDER to LAD, SVG to OM1,OM2, SVG to Diag, SVG to PDA. AVR/MVR (bioprosth)) Hx Coronary Stent: Yes (x9) - ANESTHESIA Hx Anesthesia: Yes Hx Anesthesia Reactions: No Hx Malignant Hyperthermia: No Meds Allergies/Adverse Reactions: Allergies Allergy/AdvReac Type Severity Reaction Status Date / Time iodine Allergy Intermediate SHORTNESS Verified 01/16/18 18:43 OF BREATH shellfish derived Allergy Intermediate ANGIOEDEMA Verified 01/16/18 18:43 milk Allergy Mild SHORTNESS Verified 01/16/18 18:43 OF BREATH - Medications Medications: Current Medications Albuterol/Ipratropium (Duoneb 3 Mg/0.5 Mg (3 Ml) Ud) 3 ml INH RQ6 [facility] Last Admin: 02/28/18 13:03 Dose: 3 ml Aspirin (Ecotrin) 81 mg PO DAILY [facility] Last Admin: 02/28/18 09:48 Dose: 81 mg Azithromycin (Zithromax) 500 mg PO Q24H [facility] Last Admin: 02/27/18 20:03 Dose: 500 mg Carvedilol (Coreg) 12.5 mg PO BID [facility] Last Admin: 02/28/18 09:48 Dose: 12.5 mg Enoxaparin Sodium (Lovenox) 40 mg SC DAILY [facility] Last Admin: 02/28/18 09:43 Dose: 40 mg Furosemide (Lasix) 80 mg PO BID [facility] Last Admin: 02/28/18 09:43 Dose: 80 mg Gabapentin (Neurontin) 400 mg PO TID [facility] Last Admin: 02/28/18 12:59 Dose: 400 mg Glimepiride (Amaryl) 4 mg PO DAILY [facility] Last Admin: 02/28/18 09:48 Dose: 4 mg Lisinopril (Zestril) 20 mg PO DAILY [facility] Last Admin: 02/28/18 09:48 Dose: 20 mg Metformin HCl (Glucophage) 1,000 mg PO BID [facility] Last Admin: 02/28/18 09:47 Dose: 1,000 mg Rosuvastatin Calcium (Crestor) 10 mg PO HS [facility] Last Admin: 02/27/18 22:32 Dose: 10 mg Ticagrelor (Brilinta) 90 mg PO BID [facility] Last Admin: 02/28/18 09:47 Dose: 90 mg Physical Exam - Constitutional Appears: Non-toxic, No Acute Distress - Eye Exam Eye Exam: EOMI, PERRL - ENT Exam ENT Exam: Mucous Membranes Moist - Respiratory Exam Respiratory Exam: Decreased Breath Sounds, Rales (L>R). absent: Rhonchi, Wheezes - Cardiovascular Exam Cardiovascular Exam: RRR, +S1, +S2 - GI/Abdominal Exam GI & Abdominal Exam: Normal Bowel Sounds, Soft. absent: Distended, Firm, Guarding, Organomegaly, Rigid, Tenderness - Extremities Exam Extremities exam: Positive for: pedal edema Additional comments: 2+ LE edema B/L - Neurological Exam Neurological exam: Alert, Oriented x3 - Psychiatric Exam Psychiatric exam: Normal Affect, Normal Mood - Skin Skin Exam: Dry, Warm Results - Vital Signs Recent Vital Signs: Last Vital Signs Temp 98.3 F 02/28/18 07:30 Pulse 80 02/28/18 12:08 Resp 20 02/28/18 07:30 BP 118/72 02/28/18 09:48 Pulse Ox 98 02/28/18 07:30 - Labs Result Diagrams: 02/28/18 11:16 02/28/18 11:16 Labs: Laboratory Results - last 24 hr 02/27/18 02/27/18 02/28/18 16:45 21:40 06:15 WBC RBC Hgb Hct MCV MCH MCHC RDW Plt Count MPV Neut % (Auto) Lymph % (Auto) [place] % (Auto) Eos % (Auto) Baso % (Auto) Neut # (Auto) Lymph # (Auto) [place] # (Auto) Eos # (Auto) Baso # (Auto) Neutrophils % (Manual) Band Neutrophils % Lymphocytes % (Manual) Reactive Lymphs % Monocytes % (Manual) Eosinophils % (Manual) Basophils % (Manual) Platelet Estimate Anisocytosis (manual) Ovalocytes Sodium Potassium Chloride Carbon Dioxide Anion Gap BUN Creatinine Est GFR ( Amer) Est GFR (Non-Af Amer) POC Glucose (mg/dL) 90 163 H 113 H Random Glucose Calcium 02/28/18 02/28/18 11:16 11:16 WBC 8.5 RBC 5.09 Hgb 12.6 Hct 39.7 MCV 78.0 L MCH 24.8 L MCHC 31.8 L RDW 17.7 H Plt Count 221 MPV 9.0 Neut % (Auto) 76.3 H Lymph % (Auto) 8.1 L [place] % (Auto) 9.4 Eos % (Auto) 5.1 H Baso % (Auto) 1.1 Neut # (Auto) 6.5 Lymph # (Auto) 0.7 L [place] # (Auto) 0.8 Eos # (Auto) 0.4 Baso # (Auto) 0.1 Neutrophils % (Manual) 75 Band Neutrophils % 3 H Lymphocytes % (Manual) 8 L Reactive Lymphs % 1 H Monocytes % (Manual) 9 Eosinophils % (Manual) 3 Basophils % (Manual) 1 Platelet Estimate Normal Anisocytosis (manual) Slight Ovalocytes Slight Sodium 140 Potassium 3.8 Chloride 93 L Carbon Dioxide 33 H Anion Gap 19 BUN 24 H Creatinine 1.2 Est GFR ( Amer) > 60 Est GFR (Non-Af Amer) > 60 POC Glucose (mg/dL) Random Glucose 220 H Calcium 8.9 Assessment & Plan - Assessment and Plan (Free Text) Assessment: Patient is a 67yo male with PMHx significant for severe CAD s/p CABG and PCI multiple times, CHF, COPD, CVA who presented to the ED with complaint of shortness of breath and lower extremity edema. Our service is consulted for finding of gallstones. -Cholelithiasis on imaging, presently asymptomatic -Acute CHF exacerbation -CAD -COPD Plan: -U/S reviewed - gallstones and sludge noted -CBD WNL and no evidence of choledocolithiasis -LFTs unremarkable from the ; would repeat set today -Would recommend outpatient elective evaluation for cholecystectomy with general surgery or sooner if patient becomes symptomatic -Diet as tolerated -No prior endoscopic evaluations - recommend outpatient colonoscopy for colon cancer screening -Plan per primary service - Date & Time Date: 02/28/18 Time: 14:15 <Rad Restrepo - Last Filed: 02/28/18 18:33> Meds - Medications Medications: Current Medications Albuterol/Ipratropium (Duoneb 3 Mg/0.5 Mg (3 Ml) Ud) 3 ml INH RQ6 [facility] Last Admin: 02/28/18 13:03 Dose: 3 ml Aspirin (Ecotrin) 81 mg PO DAILY [facility] Last Admin: 02/28/18 09:48 Dose: 81 mg Azithromycin (Zithromax) 500 mg PO Q24H [facility] Last Admin: 02/28/18 18:20 Dose: 500 mg Carvedilol (Coreg) 12.5 mg PO BID [facility] Last Admin: 02/28/18 18:21 Dose: 12.5 mg Enoxaparin Sodium (Lovenox) 40 mg SC DAILY [facility] Last Admin: 02/28/18 09:43 Dose: 40 mg Furosemide (Lasix) 80 mg PO BID [facility] Last Admin: 02/28/18 18:20 Dose: 80 mg Gabapentin (Neurontin) 400 mg PO TID [facility] Last Admin: 02/28/18 18:20 Dose: 400 mg Glimepiride (Amaryl) 4 mg PO DAILY [facility] Last Admin: 02/28/18 09:48 Dose: 4 mg Lisinopril (Zestril) 20 mg PO DAILY [facility] Last Admin: 02/28/18 09:48 Dose: 20 mg Metformin HCl (Glucophage) 1,000 mg PO BID [facility] Last Admin: 02/28/18 18:20 Dose: 1,000 mg Rosuvastatin Calcium (Crestor) 10 mg PO HS [facility] Last Admin: 02/27/18 22:32 Dose: 10 mg Ticagrelor (Brilinta) 90 mg PO BID [facility] Last Admin: 02/28/18 18:20 Dose: 90 mg Results - Vital Signs Recent Vital Signs: Last Vital Signs Temp 98.4 F 02/28/18 15:30 Pulse 58 L 02/28/18 15:30 Resp 18 02/28/18 15:30 BP 117/79 02/28/18 18:21 Pulse Ox 98 02/28/18 15:30 - Labs Result Diagrams: 02/28/18 11:16 02/28/18 11:16 Labs: Laboratory Results - last 24 hr 02/27/18 02/28/18 02/28/18 21:40 06:15 11:16 WBC 8.5 RBC 5.09 Hgb 12.6 Hct 39.7 MCV 78.0 L MCH 24.8 L MCHC 31.8 L RDW 17.7 H Plt Count 221 MPV 9.0 Neut % (Auto) 76.3 H Lymph % (Auto) 8.1 L [place] % (Auto) 9.4 Eos % (Auto) 5.1 H Baso % (Auto) 1.1 Neut # (Auto) 6.5 Lymph # (Auto) 0.7 L [place] # (Auto) 0.8 Eos # (Auto) 0.4 Baso # (Auto) 0.1 Neutrophils % (Manual) 75 Band Neutrophils % 3 H Lymphocytes % (Manual) 8 L Reactive Lymphs % 1 H Monocytes % (Manual) 9 Eosinophils % (Manual) 3 Basophils % (Manual) 1 Platelet Estimate Normal Anisocytosis (manual) Slight Ovalocytes Slight Sodium Potassium Chloride Carbon Dioxide Anion Gap BUN Creatinine Est GFR ( Amer) Est GFR (Non-Af Amer) POC Glucose (mg/dL) 163 H 113 H Random Glucose Calcium Total Bilirubin Direct Bilirubin AST ALT Alkaline Phosphatase Total Protein Albumin Globulin Albumin/Globulin Ratio 02/28/18 02/28/18 02/28/18 11:16 12:53 16:24 WBC RBC Hgb Hct MCV MCH MCHC RDW Plt Count MPV Neut % (Auto) Lymph % (Auto) [place] % (Auto) Eos % (Auto) Baso % (Auto) Neut # (Auto) Lymph # (Auto) [place] # (Auto) Eos # (Auto) Baso # (Auto) Neutrophils % (Manual) Band Neutrophils % Lymphocytes % (Manual) Reactive Lymphs % Monocytes % (Manual) Eosinophils % (Manual) Basophils % (Manual) Platelet Estimate Anisocytosis (manual) Ovalocytes Sodium 140 Potassium 3.8 Chloride 93 L Carbon Dioxide 33 H Anion Gap 19 BUN 24 H Creatinine 1.2 Est GFR ( Amer) > 60 Est GFR (Non-Af Amer) > 60 POC Glucose (mg/dL) 140 H Random Glucose 220 H Calcium 8.9 Total Bilirubin 0.8 Direct Bilirubin 0.5 H AST 44 ALT 16 L D Alkaline Phosphatase 60 Total Protein 7.4 Albumin 4.2 Globulin 3.3 Albumin/Globulin Ratio 1.3 02/28/18 02/28/18 02/28/18 16:56 16:58 17:29 WBC RBC Hgb Hct MCV MCH MCHC RDW Plt Count MPV Neut % (Auto) Lymph % (Auto) [place] % (Auto) Eos % (Auto) Baso % (Auto) Neut # (Auto) Lymph # (Auto) [place] # (Auto) Eos # (Auto) Baso # (Auto) Neutrophils % (Manual) Band Neutrophils % Lymphocytes % (Manual) Reactive Lymphs % Monocytes % (Manual) Eosinophils % (Manual) Basophils % (Manual) Platelet Estimate Anisocytosis (manual) Ovalocytes Sodium Potassium Chloride Carbon Dioxide Anion Gap BUN Creatinine Est GFR ( Amer) Est GFR (Non-Af Amer) POC Glucose (mg/dL) 67 68 93 Random Glucose Calcium Total Bilirubin Direct Bilirubin AST ALT Alkaline Phosphatase Total Protein Albumin Globulin Albumin/Globulin Ratio Attending/Attestation - Attestation I have personally seen and examined this patient.: Yes I have fully participated in the care of the patient.: Yes I have reviewed all pertinent clinical information: Yes Notes (Text): 02/28/18 18:27 I have seen and examined patient with GI fellow. Agree with above documentation with the following additions. In brief, this is a 67 year old male with history of CAD/CABG s/p stent, CHF, COPD, CVA who presented to hospital with complaint of progressive lethargy, cough, and dyspnea on exertion with lower extremity swelling. He is currently being treated for CHF exacerbation, GI called for evaluation of abdominal pain. He describes intermittent LLQ abdominal pain for the past one month, 5/10 intensity, at times radiating to suprapubic region. He denies associated constipation, nausea , vomiting, diarrhea, fever/chills, unintentional weight loss, rectal bleeding. No prior endoscopic evaluation. Review of vitals from today are normal. CAD / CABG s/p stent Dyspnea, cough - CHF exacerbation COPD CVA Abdominal pain - abdominal US reviewed by me showing cholelithiasis, no biliary dilation Transaminitis - Diet as tolerated, suggest low fat, low sodium - Repeat LFTs - Obtain viral hepatitis panel - Currently patient asymptomatic from gallstones, would suggest additional outpatient follow up - Patient would also benefit from elective outpatient colonoscopy following resolution of acute symptoms, particularly given LLQ abdominal pain. Patient without prior procedure, should rule out underlying malignancy. No current planned GI intervention, will sign off case. Please reconsult as necessary, thank you.
[2018-02-28 16:35] LABS: ALB/GLOB RATIO 1.3 (1.0-2.1); ALBUMIN 4.2 g/dL (3.5-5.0); BILIRUBIN,DIRECT 0.5 mg/dL (0.0-0.4)
--- NOTE | 2018-02-28 16:51 | CP.PCM.PN ---
Subjective - Date & Time of Evaluation Date of Evaluation: 02/28/18 Time of Evaluation: 10:00 - Subjective Subjective: clinically same Objective - Vital Signs/Intake and Output Vital Signs (last 24 hours): Temp Pulse Resp BP Pulse Ox 98.3 F 80 20 118/72 98 02/28/18 07:30 02/28/18 12:08 02/28/18 07:30 02/28/18 09:48 02/28/18 07:30 Intake and Output: 02/28/18 02/28/18 06:59 18:59 Intake Total 40 Balance 40 - Medications Medications: Current Medications Albuterol/Ipratropium (Duoneb 3 Mg/0.5 Mg (3 Ml) Ud) 3 ml INH RQ6 [facility] Last Admin: 02/28/18 13:03 Dose: 3 ml Aspirin (Ecotrin) 81 mg PO DAILY [facility] Last Admin: 02/28/18 09:48 Dose: 81 mg Azithromycin (Zithromax) 500 mg PO Q24H [facility] Last Admin: 02/27/18 20:03 Dose: 500 mg Carvedilol (Coreg) 12.5 mg PO BID [facility] Last Admin: 02/28/18 09:48 Dose: 12.5 mg Enoxaparin Sodium (Lovenox) 40 mg SC DAILY [facility] Last Admin: 02/28/18 09:43 Dose: 40 mg Furosemide (Lasix) 80 mg PO BID [facility] Last Admin: 02/28/18 09:43 Dose: 80 mg Gabapentin (Neurontin) 400 mg PO TID [facility] Last Admin: 02/28/18 12:59 Dose: 400 mg Glimepiride (Amaryl) 4 mg PO DAILY [facility] Last Admin: 02/28/18 09:48 Dose: 4 mg Lisinopril (Zestril) 20 mg PO DAILY [facility] Last Admin: 02/28/18 09:48 Dose: 20 mg Metformin HCl (Glucophage) 1,000 mg PO BID [facility] Last Admin: 02/28/18 09:47 Dose: 1,000 mg Rosuvastatin Calcium (Crestor) 10 mg PO HS [facility] Last Admin: 02/27/18 22:32 Dose: 10 mg Ticagrelor (Brilinta) 90 mg PO BID [facility] Last Admin: 02/28/18 09:47 Dose: 90 mg - Labs Labs: 02/28/18 11:16 02/28/18 11:16 PT 12.7 SECONDS (9.7-12.2) H 02/23/18 15:00 INR 1.1 02/23/18 15:00 APTT 33 SECONDS (21-34) 02/23/18 15:00 - Constitutional Appears: Well - Head Exam Head Exam: ATRAUMATIC, NORMAL INSPECTION, NORMOCEPHALIC - ENT Exam ENT Exam: Mucous Membranes Moist, Normal Exam - Neck Exam Neck Exam: Full ROM, Normal Inspection. absent: Lymphadenopathy - Respiratory Exam Respiratory Exam: Decreased Breath Sounds - Cardiovascular Exam Cardiovascular Exam: REGULAR RHYTHM, +S1, +S2 - GI/Abdominal Exam GI & Abdominal Exam: Soft, Diminished Bowel Sounds - Rectal Exam Rectal Exam: Deferred
[2018-03-01 08:05] VITALS: RESP 20; TEMP 97.7
[2018-03-01 09:12] VITALS: BP 126/77
[2018-03-01] MEDS: Enoxaparin 40 mg Syringe SC SCH (09:13)
--- NOTE | 2018-03-01 10:41 | CP.PCM.PN ---
Subjective - Date & Time of Evaluation Date of Evaluation: 03/01/18 Time of Evaluation: 10:41 - Subjective Subjective: PT CLEARED FOR D/C TODAY PER DR PAVON BACK TO [facility]. PT CLEARED BY INDUSTRIAL ANALYST FOR D/C AND FOR OUTPATIENT FOLLOW UP. TO CONTINUE PO ABX. PT TO ALSO F/U WITH GI IN THE OFFICE IN 2-3 WEEKS. SW TO ARRANGE TRANSPORTATION TO [place]. NO FURTHER ORDERS. -PLACE UNDER THE SERVICE OF DR. Cory PAVON WHILE AT [facility] ---CALL DR. PAVON UPON ARRIVAL TO [facility] FOR ADMITTING ORDERS. -CONTINUE MEDICATIONS PER THE MED REC FORM--CHANGES CAN BE MADE BY DR. PAVON. -CONTINUE ZITHROMAX PO DAILY FOR 5 DAYS (START ON 03/02/18 AND LAST DAY TO BE GIVEN ON 03/06/18). -PHYSICAL THERAPY TOLERATED. -FOLLOW UP WITH DR. RETANA (STOMACH DOCTOR) IN THE OFFICE WITHIN 2-3 WEEKS FOR FURTHER OUTPATIENT TESTING IF ABDOMINAL ISSUES PERSIST. -FOLLOW UP WITH DR. FISHER (HEART DOCTOR) IN THE OFFICE WITHIN 2-3 WEEKS. -FOR FURTHER ORDERS, CONTACT DR. PAVON'S OFFICE. Objective - Vital Signs/Intake and Output Vital Signs (last 24 hours): Temp Pulse Resp BP Pulse Ox 97.7 F 55 L 20 126/77 98 03/01/18 08:03 03/01/18 08:05 03/01/18 08:03 03/01/18 09:13 03/01/18 08:03 Intake and Output: 03/01/18 03/01/18 06:59 18:59 Intake Total 250 Balance 250 - Medications Medications: Current Medications Aspirin (Ecotrin) 81 mg PO DAILY [facility] Last Admin: 03/01/18 09:13 Dose: 81 mg Azithromycin (Zithromax) 500 mg PO Q24H [facility] Last Admin: 02/28/18 18:20 Dose: 500 mg Carvedilol (Coreg) 12.5 mg PO BID [facility] Last Admin: 03/01/18 09:13 Dose: 12.5 mg Enoxaparin Sodium (Lovenox) 40 mg SC DAILY [facility] Last Admin: 03/01/18 09:13 Dose: 40 mg Furosemide (Lasix) 80 mg PO BID [facility] Last Admin: 03/01/18 09:12 Dose: 80 mg Gabapentin (Neurontin) 400 mg PO TID [facility] Last Admin: 03/01/18 09:12 Dose: 400 mg Glimepiride (Amaryl) 4 mg PO DAILY [facility] Last Admin: 03/01/18 09:12 Dose: 4 mg Lisinopril (Zestril) 20 mg PO DAILY [facility] Last Admin: 03/01/18 09:12 Dose: 20 mg Metformin HCl (Glucophage) 1,000 mg PO BID [facility] Last Admin: 03/01/18 09:12 Dose: 1,000 mg Rosuvastatin Calcium (Crestor) 10 mg PO HS [facility] Last Admin: 02/28/18 22:11 Dose: 10 mg Ticagrelor (Brilinta) 90 mg PO BID [facility] Last Admin: 03/01/18 09:12 Dose: 90 mg - Labs Labs: 02/28/18 11:16 02/28/18 11:16 PT 12.7 SECONDS (9.7-12.2) H 02/23/18 15:00 INR 1.1 02/23/18 15:00 APTT 33 SECONDS (21-34) 02/23/18 15:00
--- NOTE | 2018-03-01 11:07 | PCM.HF ---
Heart Failure Core Measure - Heart Failure Ejection Fraction: 40 % or Greater SWATHI Inhibitor Prescribed: Yes Beta-Coretta Prescribed: Carvedilol Angiotensin II Receptor Coretta Prescribed: No Contraindication/Reason for not providing: ON SWATHI AnticoagulationTherapy for Atrial Fibrillation/Atrialflutter: No Contraindication/Reason for not providing: NO AFIB Aldosterone Antagonist Prescribed: No Contraindication/Reason for not providing: EF >40 Hydralazine Nitrate Prescribed: No Contraindication/Reason for not providing: EF >40 Implantable Cardioverter Defibrillator Therapy: No Contraindication/Reason for not providing: LIFE VEST---PT NONCOMPLIANT WITH LIFE VEST Cardiac Resynchronization Therapy Prescribed: No Contraindication/Reason for not providing: LIFE VEST---PT NONCOMPLIANT WITH LIFE VEST - Follow up [facility] be discharged to: [facility] UNDER DR. Crystal PAVON) Follow Up Date (must be within 7 days from discharge): 03/04/18 Follow Up Time: 09:00
[2018-03-01 15:09] VITALS: PULSE 60
== END 2018-03-01 16:30 | DRG 292 ==
LOC: C.ER 12:27 → C.9E 15:12 → C.6T 16:24
PROVIDERS: ADMIT Internal Medicine Nephrology; ATTEND Internal Medicine Nephrology
DX: I11.0 Hypertensive heart disease with heart failure (principal); I69.351 Hemiplegia and hemiparesis following cerebral infarction affecting right dominant side; I50.23 Acute on chronic systolic (congestive) heart failure; E11.9 Type 2 diabetes mellitus without complications; E78.00 Pure hypercholesterolemia, unspecified; I25.10 Atherosclerotic heart disease of native coronary artery without angina pectoris; J44.9 Chronic obstructive pulmonary disease, unspecified; K80.20 Calculus of gallbladder without cholecystitis without obstruction; R09.02 Hypoxemia; Z87.891 Personal history of nicotine dependence; Z95.0 Presence of cardiac pacemaker; Z95.1 Presence of aortocoronary bypass graft; Z91.013 Allergy to seafood

== ENCOUNTER 2018-05-01 14:21 | Emergency (ER) | payer MEDICARE, MEDICAID ==
[2018-05-01 14:21] VITALS: BMI 32.5
[2018-05-01 14:51] VITALS: RESP 20
--- NOTE | 2018-05-01 15:44 | C.PDOC ---
Time Seen by Provider: 05/01/18 14:53 Chief Complaint (Nursing): Upper Extremity Problem/Injury Past Medical History Vital Signs: Last Vital Signs Temp 98.6 F 05/01/18 14:42 Pulse 62 05/01/18 14:42 Resp 20 05/01/18 14:42 BP 114/77 05/01/18 14:42 Pulse Ox 95 05/01/18 14:42 - Medical History PMH: Arthritis, Asthma, CAD, Cardia Arrhythmia, CHF, COPD, CVA (affecting right side of body), Depression (denies), Diabetes, Gastritis, HTN, Hypercholesterolemia Denies: Fractures, Chronic Kidney Disease Surgical History: CABG (BENDER to LAD, SVG to OM1,OM2, SVG to Diag, SVG to PDA. AVR/MVR (bioprosth)), Coronary Stent (x9), Pacemaker - [facility] Procedures CORONAR ARTERIOGR-2 CATH (07/19/14) DILATION OF CORONARY ARTERY, ONE SITE, PERCUTANEOUS APPROACH (05/20/16) INSERTION OF INFUSION DEV INTO SUP VENA CAVA, PERC APPROACH (01/19/17) INSPECTION OF LARYNX, ENDO (04/23/16) LEFT HEART CARDIAC CATH (07/19/14) LT HEART ANGIOCARDIOGRAM (07/19/14) MEASURE CARDIAC SAMPL & PRESSURE, BILATERAL, PERC (07/08/17) MEASURE OF CARDIAC SAMPL & PRESSURE, L HEART, PERC APPROACH (05/20/16) PLAIN RADIOGRAPHY OF L INT MAMM GRAFT USING OTH CONTRAST (05/20/16) PLAIN RADIOGRAPHY OF LEFT HEART USING OTHER CONTRAST (05/20/16) PLAIN RADIOGRAPHY OF MULT COR A GRAFT USING OTH CONTRAST (07/08/17) PLAIN RADIOGRAPHY OF MULT COR ART USING OTH CONTRAST (07/08/17) PLAIN RADIOGRAPHY OF RIGHT AND LEFT HEART USING OTH CONTRAST (07/08/17) ULTRASONOGRAPHY OF RIGHT AND LEFT HEART, TRANSESOPHAGEAL (01/19/17) Family History: States: Unknown Family Hx - Social History Hx Tobacco Use: No Hx Alcohol Use: No Hx Substance Use: No - Immunization History Hx Tetanus Toxoid Vaccination: Yes Hx Influenza Vaccination: Yes Hx Pneumococcal Vaccination: Yes ED Course And Treatment O2 Sat by Pulse Oximetry: 95 Disposition - Disposition
--- NOTE | 2018-05-01 16:17 | RAD ---
PROCEDURE: Left Wrist Radiographs. HISTORY: pain to wrist no trauma COMPARISON: None. FINDINGS: BONES: Bone alignment and mineralization are normal. There is no acute displaced fracture or bone destruction. JOINTS: Normal. No dislocation. SOFT TISSUES: Normal. OTHER FINDINGS: None. IMPRESSION: No acute fracture or dislocation.
--- NOTE | 2018-05-01 16:29 | C.PDOC ---
History Of Present Illness 67-year-old male presents to the ED with complaint of left wrist pain that radiates to elbow for the last 2 days. He reports pain is aching to sharp when moving or turning his wrist. Denies any chest pain, SOB, numbness or weakness. Patient has cardiac history and is on several medications. Time Seen by Provider: 05/01/18 14:53 Chief Complaint (Nursing): Upper Extremity Problem/Injury History Per: Patient History/Exam Limitations: no limitations Onset/Duration Of Symptoms: Days (2) Current Symptoms Are (Timing): Still Present Quality: "Pain" Additional History Per: Patient Past Medical History Reviewed: Historical Data, Nursing Documentation, Vital Signs Vital Signs: Last Vital Signs Temp 98 F 05/01/18 16:38 Pulse 68 05/01/18 16:38 Resp 20 05/01/18 16:38 BP 116/76 05/01/18 16:38 Pulse Ox 95 05/01/18 16:56 - Medical History PMH: Arthritis, Asthma, CAD, Cardia Arrhythmia, CHF, COPD, CVA (affecting right side of body), Depression (denies), Diabetes, Gastritis, HTN, Hypercholesterolemia Denies: Fractures, Chronic Kidney Disease Surgical History: CABG (BENDER to LAD, SVG to OM1,OM2, SVG to Diag, SVG to PDA. AVR/MVR (bioprosth)), Coronary Stent (x9), Pacemaker - [facility] Procedures CORONAR ARTERIOGR-2 CATH (07/19/14) DILATION OF CORONARY ARTERY, ONE SITE, PERCUTANEOUS APPROACH (05/20/16) INSERTION OF INFUSION DEV INTO SUP VENA CAVA, PERC APPROACH (01/19/17) INSPECTION OF LARYNX, ENDO (04/23/16) LEFT HEART CARDIAC CATH (07/19/14) LT HEART ANGIOCARDIOGRAM (07/19/14) MEASURE CARDIAC SAMPL & PRESSURE, BILATERAL, PERC (07/08/17) MEASURE OF CARDIAC SAMPL & PRESSURE, L HEART, PERC APPROACH (05/20/16) PLAIN RADIOGRAPHY OF L INT MAMM GRAFT USING OTH CONTRAST (05/20/16) PLAIN RADIOGRAPHY OF LEFT HEART USING OTHER CONTRAST (05/20/16) PLAIN RADIOGRAPHY OF MULT COR A GRAFT USING OTH CONTRAST (07/08/17) PLAIN RADIOGRAPHY OF MULT COR ART USING OTH CONTRAST (07/08/17) PLAIN RADIOGRAPHY OF RIGHT AND LEFT HEART USING OTH CONTRAST (07/08/17) ULTRASONOGRAPHY OF RIGHT AND LEFT HEART, TRANSESOPHAGEAL (01/19/17) Family History: States: Unknown Family Hx - Social History Hx Tobacco Use: No Hx Alcohol Use: No Hx Substance Use: No - Immunization History Hx Tetanus Toxoid Vaccination: Yes Hx Influenza Vaccination: Yes Hx Pneumococcal Vaccination: Yes Review Of Systems Cardiovascular: Negative for: Chest Pain Respiratory: Negative for: Shortness of Breath Musculoskeletal: Positive for: Other (left wrist pain that radiates to elbow ) Neurological: Negative for: Weakness, Numbness Physical Exam - Physical Exam Appears: Non-toxic, No Acute Distress Skin: Normal Color, Warm, Dry Head: Atraumatic, Normacephalic Eye(s): bilateral: Normal Inspection Oral Mucosa: Moist Neck: Supple Chest: Symmetrical, No Deformity, No Tenderness Cardiovascular: Rhythm Regular, No Murmur Respiratory: Normal Breath Sounds, No Rales, No Rhonchi, No Wheezing Extremity: No Normal ROM (limited secondary to pain), No Tenderness, Capillary Refill (3 seconds on left side, 2 seconds on right), No Deformity, No Swelling, Other (left wrist pain with pronation and tenderness to radial aspect and distal forearm. pulse 1+ palpable but dimished from right) Neurological/Psych: Oriented x3, Normal Speech, Normal Cognition Gait: Steady ED Course And Treatment O2 Sat by Pulse Oximetry: 95 (on RA) Pulse Ox Interpretation: Normal Medical Decision Making Medical Decision Making: Impression: wrist pain Case discussed with Dr Schultz who also examined patient and agreed with plan for arterial doppler Plan: * Xray wrist * Arterial doppler Progress: EKG obtained during triage SR at 65 bpm with 1st degree AV block Arterial doppler of left arm shows no evidence of stenosis or occlusion. Wrist xray was normal, no fracture dislocation or arthritic changes Volar velcro splint applied to left wrist and forearm. Patient advised to rest ice and take pain meds as needed Disposition Counseled Patient/Family Regarding: Diagnosis, Need For Followup, Rx Given - Disposition Referrals: Alison Lux MD [Staff Provider] - Disposition: HOME/ ROUTINE Disposition Time: 16:29 Condition: STABLE Additional Instructions: Please apply ice to area 15 minutes three times a day. Take Motrin as needed for pain every 6 hours. 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 - Scribe Statement The provider has reviewed the documentation as recorded by the Scribe (Kayla Lux) All medical record entries made by the Scribe were at my direction and personally dictated by me. I have reviewed the chart and agree that the record accurately reflects my personal performance of the history, physical exam, medical decision making, and the department course for this patient. I have also personally directed, reviewed, and agree with the discharge instructions and disposition.
[2018-05-01 16:38] VITALS: BP 116/76; PULSE 68; TEMP 98
[2018-05-01 16:53] VITALS: O2SAT 95
--- NOTE | 2018-05-02 14:51 | VASCLAB ---
PROCEDURE: HISTORY: Left arm pain COMPARISON: None available. TECHNIQUE: Grayscale and duplex Doppler evaluation of the left upper extremity was performed. Report prepared by MARIUM Ramires FINDINGS: LEFT UPPER EXTREMITY: * Prox SCA : Peak Systolic Velocity - 80 doppler Waveform: Triphasic.: Plaque description - * Distal SCA: Peak Systolic Velocity - 71 doppler Waveform: Triphasic.: Plaque description - * Axillary: Peak Systolic Velocity - 75 doppler Waveform: Triphasic.: Plaque description - * Brachial o Proximal Segment: Peak Systolic Velocity - 78 doppler Waveform: Triphasic.: Plaque description - o Distal Segment: Peak Systolic Velocity - 62 doppler Waveform: Triphasic.: Plaque description - * Radial o Proximal Segment: Peak Systolic Velocity - 62 doppler Waveform: Triphasic.: Plaque description - o Distal Segment: Peak Systolic Velocity - 33 doppler Waveform: Triphasic.: Plaque description - * Radial o Proximal Segment: Peak Systolic Velocity - 50 doppler Waveform: Triphasic.: Plaque description - o Distal Segment: Peak Systolic Velocity - 28 doppler Waveform: Triphasic.: Plaque description - OTHER FINDINGS: None. IMPRESSION: There is no evidence of hemodynamically significant arterial insufficiency of the left upper extremity.
--- NOTE | 2018-05-07 06:20 | CARD ---
APPROVED REPORT EKG Measurement Heart [id number] <Conclusion> Sinus rhythm with 1st degree AV block with premature atrial complexes Nonspecific intraventricular block Abnormal ECG
== END 2018-05-01 16:44 | disposition home or self-care (01) ==
LOC: C.ER 14:21
DX: S66.912A Strain of unspecified muscle, fascia and tendon at wrist and hand level, left hand, initial encounter (principal); X58.XXXA Exposure to other specified factors, initial encounter; Y92.9 Unspecified place or not applicable; I10 Essential (primary) hypertension; Z86.73 Personal history of transient ischemic attack (TIA), and cerebral infarction without residual deficits; Z87.891 Personal history of nicotine dependence

== ENCOUNTER 2019-02-02 01:17 | Inpatient (IN) | payer MEDICARE, MEDICAID ==
[2019-02-02] MEDS ORDERED: DiphenhydrAMINE 50 mg/ml Inj ONE (01:25)
[2019-02-02 01:31] VITALS: BMI 33.5
[2019-02-02] MEDS ORDERED: DiphenhydrAMINE 50 mg/ml Inj IVP STA (01:35)
--- NOTE | 2019-02-02 02:16 | C.PDOC ---
History Of Present Illness 68 year old male with tongue swelling, admits eating shrimp for dinner. 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 He has Hx of angioedema tongue swelling in 04/2016. Time Seen by Provider: 02/02/19 01:28 Chief Complaint (Nursing): Allergic Reaction History Per: Patient History/Exam Limitations: no limitations Onset/Duration Of Symptoms: Hrs Current Symptoms Are (Timing): Still Present Context: Food Possible Cause: Food Associated Symptoms: Swelling Home/EMS Treatment: None Recent travel outside of the [place]: No Past Medical History Reviewed: Historical Data, Nursing Documentation, Vital Signs Vital Signs: Last Vital Signs Temp 98.3 F 02/02/19 01:28 Pulse 68 02/02/19 01:28 Resp 20 02/02/19 01:28 BP 148/70 02/02/19 01:28 Pulse Ox 96 02/02/19 01:28 - Medical History PMH: Arthritis, Asthma, CAD, Cardia Arrhythmia, CHF, COPD, CVA (affecting right side of body), Depression (denies), Diabetes, Gastritis, HTN, Hypercholesterolemia Denies: Fractures, Chronic Kidney Disease Surgical History: CABG (BENDER to LAD, SVG to OM1,OM2, SVG to Diag, SVG to PDA. AVR/MVR (bioprosth)), Coronary Stent (x9), Pacemaker - [facility] Procedures CORONAR ARTERIOGR-2 CATH (07/19/14) DILATION OF CORONARY ARTERY, ONE SITE, PERCUTANEOUS APPROACH (05/20/16) INSERTION OF INFUSION DEV INTO SUP VENA CAVA, PERC APPROACH (01/19/17) INSPECTION OF LARYNX, ENDO (04/23/16) LEFT HEART CARDIAC CATH (07/19/14) LT HEART ANGIOCARDIOGRAM (07/19/14) MEASURE CARDIAC SAMPL & PRESSURE, BILATERAL, PERC (07/08/17) MEASURE OF CARDIAC SAMPL & PRESSURE, L HEART, PERC APPROACH (05/20/16) PLAIN RADIOGRAPHY OF L INT MAMM GRAFT USING OTH CONTRAST (05/20/16) PLAIN RADIOGRAPHY OF LEFT HEART USING OTHER CONTRAST (05/20/16) PLAIN RADIOGRAPHY OF MULT COR A GRAFT USING OTH CONTRAST (07/08/17) PLAIN RADIOGRAPHY OF MULT COR ART USING OTH CONTRAST (07/08/17) PLAIN RADIOGRAPHY OF RIGHT AND LEFT HEART USING OTH CONTRAST (07/08/17) ULTRASONOGRAPHY OF RIGHT AND LEFT HEART, TRANSESOPHAGEAL (01/19/17) Family History: States: Unknown Family Hx - Social History Hx Tobacco Use: No Hx Alcohol Use: No Hx Substance Use: No - Immunization History Hx Tetanus Toxoid Vaccination: Yes Hx Influenza Vaccination: Yes Hx Pneumococcal Vaccination: Yes Review Of Systems Constitutional: Negative for: Fever, Chills ENT: Positive for: Other (Tongue swelling) Cardiovascular: Negative for: Chest Pain, Palpitations Respiratory: Negative for: Cough, Shortness of Breath, Wheezing Gastrointestinal: Negative for: Nausea, Vomiting Skin: Negative for: Rash Neurological: Negative for: Weakness, Numbness Physical Exam - Physical Exam Appears: Non-toxic, Other (Morbidly obese) Skin: Normal Color, Warm, No Rash Head: Atraumatic, Normacephalic Eye(s): bilateral: Normal Inspection Nose: Normal Oral Mucosa: Moist Tongue: Swelling (Left greater than right) Lips: Normal Appearing, No Swelling Throat: Normal, No Other (Swelling) Neck: Normal, Supple Chest: Symmetrical, No Tenderness Cardiovascular: Rhythm Regular Respiratory: Normal Breath Sounds, No Accessory Muscle Use, No Rales, No Rhonchi, No Stridor, No Wheezing Gastrointestinal/Abdominal: Soft, No Tenderness Neurological/Psych: Oriented x3, Normal Speech ED Course And Treatment - Laboratory Results Result Diagrams: 02/02/19 02:09 02/02/19 02:09 O2 Sat by Pulse Oximetry: 96 Disposition Doctor Will See Patient In The: Hospital Counseled Patient/Family Regarding: Studies Performed, Diagnosis - Disposition Disposition: HOSPITALIZED Disposition Time: 04:00 Condition: GOOD - Clinical Impression Clinical Impression: Tongue swelling - Scribe Statement The provider has reviewed the documentation as recorded by the Scribsushant Petty All medical record entries made by the Rubiibsushant were at my direction and personally dictated by me. I have reviewed the chart and agree that the record accurately reflects my personal performance of the history, physical exam, medical decision making, and the department course for this patient. I have also personally directed, reviewed, and agree with the discharge instructions and disposition.
[2019-02-02 02:22] LABS: BASO # 0.2 K/uL (0.0-0.2); BASO % 1.7 % (0.0-2.0); EOS # 0.4 K/uL (0.0-0.7); EOS % 4.1 % (0.0-4.0); HEMOGLOBIN 13.8 g/dL (12.0-18.0); LYMPH # 1.9 K/uL (1.0-4.3); MEAN CELL VOLUME 83.4 fL (80.0-94.0); MEAN CORPUSCULAR HGB CONC 31.1 g/dL (33.0-37.0); MEAN PLATELET VOLUME 9.8 fL (7.2-11.7); MONO # 0.7 K/uL (0.0-0.8); MONO % 7.4 % (0.0-10.0); NEUT # 6.1 K/uL (1.8-7.0); NEUT % 65.8 % (50.0-75.0); RBC 5.3 Mil/uL (4.40-5.90); RED CELL DISTRIBUTION WIDTH 16.1 % (11.5-14.5); WHITE BLOOD COUNT 9.2 K/uL (4.8-10.8)
[2019-02-02 02:27] LABS: ALB/GLOB RATIO 1.6 (1.0-2.1); ALBUMIN 4.7 g/dL (3.5-5.0); ALT/SGPT 12 U/L (21-72); AST/SGOT 27 U/L (17-59); BLOOD UREA NITROGEN 49 mg/dL (9-20); CALCIUM 9.3 mg/dl (8.6-10.4); GFR NON-AFRICAN AMERICAN 50
[2019-02-02] MEDS ORDERED: (Novolin R) Insulin Human Regular 100 units/ml vial IV STA (02:29)
[2019-02-02 02:37] LABS: B-TYPE NATRIURETIC PEPTIDE 570 pg/mL (0-900)
[2019-02-02] MEDS: MethylPREDNISolone 40 mg Vial IVP SCH ×3 (07:00→22:08)
[2019-02-02] MEDS: DiphenhydrAMINE 50 mg/ml Inj IVP SCH ×4 (07:01→23:55)
[2019-02-02] MEDS: (Novolin R) Insulin Human Regular 100 units/ml vial SC SCH ×4 (07:10→22:07)
[2019-02-02 09:08] VITALS: RESP 20
[2019-02-02] MEDS: Enoxaparin 40 mg Syringe SC SCH (11:50)
[2019-02-02] MEDS ORDERED: (Novolin R) Insulin Human Regular 100 units/ml vial SC ONE (12:50)
--- NOTE | 2019-02-02 13:18 | RAD ---
Date of service: 02/02/2019 PROCEDURE: CHEST RADIOGRAPH, 1 VIEW HISTORY: SOB COMPARISON: Comparison is made with 02/23/2018 FINDINGS: LUNGS: No evidence of focal infiltrate or consolidation. PLEURA: No pneumothorax or pleural fluid seen. CARDIOVASCULAR: No aortic atherosclerotic calcification present. Cardiomegaly is noted. OSSEOUS STRUCTURES: No significant abnormalities. VISUALIZED UPPER ABDOMEN: Normal. OTHER FINDINGS: Left-sided pacemaker is again seen in place. IMPRESSION: Cardiomegaly. No evidence of acute pulmonary disease.
--- NOTE | 2019-02-02 15:02 | CP.PCM.HP ---
Past Patient History - Infectious Disease Hx of Infectious Diseases: None - Past Medical History & Family History Past Medical History?: Yes - Past Social History Smoking Status: Former Smoker - CARDIAC Hx Cardia Arrhythmia: Yes Hx Congestive Heart Failure: Yes Hx Hypercholesterolemia: Yes Hx Hypertension: Yes Hx Pacemaker: Yes - PULMONARY Hx Asthma: Yes Hx Chronic Obstructive Pulmonary Disease (COPD): Yes - HEENT Hx HEENT Problems: No - RENAL Hx Chronic Kidney Disease: No - ENDOCRINE/METABOLIC Hx Diabetes Mellitus Type 2: Yes - INTEGUMENTARY Hx Dermatological Problems: No Other/Comment: abdominal area with surgical scars - MUSCULOSKELETAL/RHEUMATOLOGICAL Hx Arthritis: Yes Hx Fractures: No - GASTROINTESTINAL Hx Gastritis: Yes - PSYCHIATRIC Hx Depression: Yes (denies) Hx Substance Use: No - SURGICAL HISTORY Hx Coronary Artery Bypass Graft: Yes (BENDER to LAD, SVG to OM1,OM2, SVG to Diag, SVG to PDA. AVR/MVR (bioprosth)) Hx Coronary Stent: Yes (x9) - ANESTHESIA Hx Anesthesia: Yes Hx Anesthesia Reactions: No Hx Malignant Hyperthermia: No Meds Allergies/Adverse Reactions: Allergies Allergy/AdvReac Type Severity Reaction Status Date / Time iodine Allergy Intermediate SHORTNESS Verified 02/02/19 01:32 OF BREATH shellfish derived Allergy Intermediate ANGIOEDEMA Verified 02/02/19 01:32 milk Allergy Mild SHORTNESS Verified 02/02/19 01:32 OF BREATH Physical Exam - Constitutional Appears: Well - Head Exam Head Exam: ATRAUMATIC, NORMAL INSPECTION, NORMOCEPHALIC - Eye Exam Eye Exam: EOMI, Normal appearance, PERRL Pupil Exam: NORMAL ACCOMODATION, PERRL - ENT Exam ENT Exam: Mucous Membranes Moist, Normal Exam - Neck Exam Neck exam: Positive for: Normal Inspection - Respiratory Exam Respiratory Exam: Decreased Breath Sounds - Cardiovascular Exam Cardiovascular Exam: REGULAR RHYTHM, +S1, +S2 - GI/Abdominal Exam GI & Abdominal Exam: Diminished Bowel Sounds, Soft - Rectal Exam Rectal Exam: Deferred Results - Vital Signs Recent Vital Signs: Last Vital Signs Temp 98.6 F 02/02/19 07:30 Pulse 87 02/02/19 12:00 Resp 20 02/02/19 07:30 BP 124/81 02/02/19 10:12 Pulse Ox 94 L 02/02/19 07:30 - Labs Result Diagrams: 02/02/19 02:09 02/02/19 02:09 Labs: Laboratory Results - last 24 hr 02/02/19 02/02/19 02/02/19 02:09 02:09 06:15 WBC 9.2 RBC 5.30 Hgb 13.8 Hct 44.2 MCV 83.4 D MCH 26.0 L MCHC 31.1 L RDW 16.1 H Plt Count 176 MPV 9.8 Neut % (Auto) 65.8 Lymph % (Auto) 21.0 Stewart % (Auto) 7.4 Eos % (Auto) 4.1 H Baso % (Auto) 1.7 Neut # (Auto) 6.1 Lymph # (Auto) 1.9 Stewart # (Auto) 0.7 Eos # (Auto) 0.4 Baso # (Auto) 0.2 Sodium 131 L Potassium 4.4 Chloride 84 L Carbon Dioxide 36 H Anion Gap 15 BUN 49 H Creatinine 1.4 Est GFR ( Amer) > 60 Est GFR (Non-Af Amer) 50 POC Glucose (mg/dL) 465 H* Random Glucose 574 H* D Calcium 9.3 Total Bilirubin 0.4 AST 27 ALT 12 L D Alkaline Phosphatase 90 Troponin I < 0.0120 NT-Pro-B Natriuret Pep 570 Total Protein 7.6 Albumin 4.7 Globulin 2.9 Albumin/Globulin Ratio 1.6 02/02/19 12:07 WBC RBC Hgb Hct MCV MCH MCHC RDW Plt Count MPV Neut % (Auto) Lymph % (Auto) Stewart % (Auto) Eos % (Auto) Baso % (Auto) Neut # (Auto) Lymph # (Auto) Stewart # (Auto) Eos # (Auto) Baso # (Auto) Sodium Potassium Chloride Carbon Dioxide Anion Gap BUN Creatinine Est GFR ( Amer) Est GFR (Non-Af Amer) POC Glucose (mg/dL) > 500 H* Random Glucose Calcium Total Bilirubin AST ALT Alkaline Phosphatase Troponin I NT-Pro-B Natriuret Pep Total Protein Albumin Globulin Albumin/Globulin Ratio
[2019-02-02] MEDS ORDERED: (Lantus) Insulin Glargine, Recombinant SC SCH (22:00)
[2019-02-03] MEDS ORDERED: Glucagon Recombinant 1 mg Inj IM PRN (02:05)
[2019-02-03] MEDS ORDERED: Dextrose 50% SYRINGE Inj (50 ml) IV PRN (02:05)
[2019-02-03] MEDS ORDERED: (Novolin R) Insulin Human Regular 100 units/ml vial SC ONE (02:06)
[2019-02-03] MEDS: DiphenhydrAMINE 50 mg/ml Inj IVP SCH ×3 (05:17→17:33)
[2019-02-03] MEDS: MethylPREDNISolone 40 mg Vial IVP SCH ×3 (05:17→17:33)
[2019-02-03] MEDS: (Novolin R) Insulin Human Regular 100 units/ml vial SC SCH ×4 (07:49→22:47)
[2019-02-03] MEDS: Enoxaparin 40 mg Syringe SC SCH (09:28)
[2019-02-03] MEDS ORDERED: Pneumococcal 23-Valent Vaccine IM ONE (10:48)
[2019-02-03 15:22] LABS: CALCIUM 9.1 mg/dl (8.6-10.4)
[2019-02-03] MEDS ORDERED: (Lantus) Insulin Glargine, Recombinant SC SCH (16:20)
--- NOTE | 2019-02-03 17:57 | CP.PCM.PN ---
Objective - Vital Signs/Intake and Output Vital Signs (last 24 hours): Temp Pulse Resp BP Pulse Ox 97.6 F 70 20 128/82 94 L 02/03/19 15:09 02/03/19 15:09 02/03/19 15:09 02/03/19 15:09 02/03/19 15:09 Intake and Output: 02/03/19 02/03/19 06:59 18:59 Intake Total 720 Balance 720 - Medications Medications: Current Medications Aspirin (Ecotrin) 81 mg PO DAILY [facility] Last Admin: 02/03/19 09:33 Dose: 81 mg Carvedilol (Coreg) 6.25 mg PO BID [facility] Last Admin: 02/03/19 17:34 Dose: 6.25 mg Dextrose (Dextrose 50% Inj) 0 ml IV STAT PRN; Protocol PRN Reason: Hypoglycemia Protocol Dextrose (Glutose 15) 0 gm PO ONCE PRN; Protocol PRN Reason: Hypoglycemia Protocol Diphenhydramine HCl (Benadryl) 25 mg IVP Q6 [facility] Last Admin: 02/03/19 17:33 Dose: 25 mg Enoxaparin Sodium (Lovenox) 40 mg SC DAILY [facility] Last Admin: 02/03/19 09:28 Dose: 40 mg Furosemide (Lasix) 80 mg PO DAILY [facility] Last Admin: 02/03/19 09:33 Dose: 80 mg Gabapentin (Neurontin) 600 mg PO TID [facility] Last Admin: 02/03/19 17:33 Dose: 600 mg Gemfibrozil (Lopid) 600 mg PO BID [facility] Last Admin: 02/03/19 17:34 Dose: 600 mg Glimepiride (Amaryl) 4 mg PO BID [facility] Last Admin: 02/03/19 17:34 Dose: 4 mg Glipizide (Glucotrol) 5 mg PO BID [facility] Last Admin: 02/03/19 17:34 Dose: 5 mg Glucagon (Glucagen Diagnostic Kit) 0 mg IM STAT PRN; Protocol PRN Reason: Hypoglycemia Protocol Dextrose (Dextrose 5% In Water 1000 Ml) 1,000 mls @ 0 mls/hr IV .Q0M PRN; Protocol PRN Reason: Hypoglycemia Protocol Insulin Glargine (Lantus) 20 unit SC [facility] Insulin Human Regular (Novolin R) 0 unit SC ACHS [facility]; Protocol Last Admin: 04/01/19 17:32 Dose: 12 units Lisinopril (Zestril) 10 mg PO DAILY [facility] Last Admin: 02/03/19 09:33 Dose: 10 mg Metformin HCl (Glucophage) 1,000 mg PO BID [facility] Last Admin: 02/03/19 17:34 Dose: 1,000 mg Methylprednisolone (Solu-Medrol) 40 mg IVP Q12H [facility] Last Admin: 02/03/19 17:33 Dose: 40 mg Rosuvastatin Calcium (Crestor) 10 mg PO HS [facility] Last Admin: 02/02/19 22:08 Dose: 10 mg Ticagrelor (Brilinta) 90 mg PO BID [facility] Last Admin: 02/03/19 17:34 Dose: 90 mg - Labs Labs: 02/02/19 02:09 02/03/19 13:38 Assessment and Plan - Assessment and Plan (Free Text) Assessment: noticed with hemoglobin A1C 16.8 and blood glucose 667. Patient is alert, a mbulating, wants to be discharged home. Advised to stay, started on lantus 20 hs and glipizide and metformin. He refuses to be going home on insulin and is non compliant.
[2019-02-03] MEDS ORDERED: MethylPREDNISolone 40 mg Vial IVP SCH (18:00)
--- NOTE | 2019-02-03 18:11 | CP.PCM.PN ---
Subjective - Date & Time of Evaluation Date of Evaluation: 02/03/19 Time of Evaluation: 11:15 - Subjective Subjective: Patient is no nausea no vomiting patient is ready is bedside patient wants to be discharged patient to be discharged today although discharge was hold after placed in order S patient's sugar is very very high Hemoglobin A1c is also very high Objective - Vital Signs/Intake and Output Vital Signs (last 24 hours): Temp Pulse Resp BP Pulse Ox 97.6 F 70 20 128/82 94 L 02/03/19 15:09 02/03/19 15:09 02/03/19 15:09 02/03/19 15:09 02/03/19 15:09 Intake and Output: 02/03/19 02/03/19 06:59 18:59 Intake Total 720 Balance 720 - Medications Medications: Current Medications Aspirin (Ecotrin) 81 mg PO DAILY [facility] Last Admin: 02/03/19 09:33 Dose: 81 mg Carvedilol (Coreg) 6.25 mg PO BID [facility] Last Admin: 02/03/19 17:34 Dose: 6.25 mg Dextrose (Dextrose 50% Inj) 0 ml IV STAT PRN; Protocol PRN Reason: Hypoglycemia Protocol Dextrose (Glutose 15) 0 gm PO ONCE PRN; Protocol PRN Reason: Hypoglycemia Protocol Diphenhydramine HCl (Benadryl) 25 mg IVP Q6 [facility] Last Admin: 02/03/19 17:33 Dose: 25 mg Enoxaparin Sodium (Lovenox) 40 mg SC DAILY [facility] Last Admin: 02/03/19 09:28 Dose: 40 mg Furosemide (Lasix) 80 mg PO DAILY [facility] Last Admin: 02/03/19 09:33 Dose: 80 mg Gabapentin (Neurontin) 600 mg PO TID [facility] Last Admin: 02/03/19 17:33 Dose: 600 mg Gemfibrozil (Lopid) 600 mg PO BID [facility] Last Admin: 02/03/19 17:34 Dose: 600 mg Glimepiride (Amaryl) 4 mg PO BID [facility] Last Admin: 02/03/19 17:34 Dose: 4 mg Glipizide (Glucotrol) 5 mg PO BID [facility] Last Admin: 02/03/19 17:34 Dose: 5 mg Glucagon (Glucagen Diagnostic Kit) 0 mg IM STAT PRN; Protocol PRN Reason: Hypoglycemia Protocol Dextrose (Dextrose 5% In Water 1000 Ml) 1,000 mls @ 0 mls/hr IV .Q0M PRN; Protocol PRN Reason: Hypoglycemia Protocol Insulin Glargine (Lantus) 20 unit SC [facility] Insulin Human Regular (Novolin R) 0 unit SC ACHS [facility]; Protocol Last Admin: 02/03/19 17:32 Dose: 12 units Lisinopril (Zestril) 10 mg PO DAILY [facility] Last Admin: 02/03/19 09:33 Dose: 10 mg Metformin HCl (Glucophage) 1,000 mg PO BID [facility] Last Admin: 02/03/19 17:34 Dose: 1,000 mg Methylprednisolone (Solu-Medrol) 40 mg IVP Q12H [facility] Last Admin: 02/03/19 17:33 Dose: 40 mg Rosuvastatin Calcium (Crestor) 10 mg PO HS [facility] Last Admin: 02/02/19 22:08 Dose: 10 mg Ticagrelor (Brilinta) 90 mg PO BID [facility] Last Admin: 02/03/19 17:34 Dose: 90 mg - Labs Labs: 02/02/19 02:09 02/03/19 13:38 - Constitutional Appears: Well - Head Exam Head Exam: ATRAUMATIC - Eye Exam Eye Exam: EOMI, Normal appearance, PERRL Pupil Exam: NORMAL ACCOMODATION, PERRL - ENT Exam ENT Exam: Mucous Membranes Moist, Normal Exam - Neck Exam Neck Exam: Full ROM, Normal Inspection. absent: Lymphadenopathy - Respiratory Exam Respiratory Exam: Decreased Breath Sounds - Cardiovascular Exam Cardiovascular Exam: REGULAR RHYTHM, +S1, +S2 - GI/Abdominal Exam GI & Abdominal Exam: Soft, Diminished Bowel Sounds - Rectal Exam Rectal Exam: Deferred Assessment and Plan (1) Tongue swelling Status: Acute (2) Acute encephalopathy Status: Acute (3) Acute posterior epistaxis Status: Acute (4) Adjustment disorder Status: Acute (5) Angioedema Status: Acute (6) Bronchitis Status: Acute (7) CHF (congestive heart failure) Status: Acute (8) Diabetes 1.5, managed as type 2 Status: Acute (9) History of gastroesophageal reflux (GERD) Status: Acute (10) History of mitral valve replacement Status: Acute - Assessment and Plan (Free Text) Plan: Amaryl Benadryl Brilinta Coreg Crestor Dextrose Ecotrin Glucagen diagnostic kit Glutose 15 Lantus Lasix Lopid Lovenox Neurontin Novolin R Solu-Medrol Zestril medications reviewed vitals reviewed labs reviewed Hemoglobin A1c is very high 16.8 Fingersticks is + slightly more than 500 Will give Lantus 30 units radha Spoke to the again at the hospital as wanted to find out I also spoke with the patient in the morning IV fluids We will give Lantus 30 units at night which he was getting 20 units althogh pt was not taking insulin at home pt made aware about his results and understood concerns
[2019-02-03] MEDS ORDERED: (Novolog) Insulin Aspart, Recombinant 100 u/ml 10 ml vial SC ONE (20:00)
[2019-02-03] MEDS: (Lantus) Insulin Glargine, Recombinant SC SCH (22:43)
[2019-02-04] MEDS: DiphenhydrAMINE 50 mg/ml Inj IVP SCH ×2 (00:25→06:09)
[2019-02-04] MEDS ORDERED: (Novolin R) Insulin Human Regular 100 units/ml vial SC ONE (02:52)
[2019-02-04] MEDS: MethylPREDNISolone 40 mg Vial IVP SCH (06:09)
[2019-02-04] MEDS: (Novolin R) Insulin Human Regular 100 units/ml vial SC SCH (08:04)
--- NOTE | 2019-02-04 09:05 | CP.PCM.CON ---
History of Present Illness - History of Present Illness History of Present Illness: Endocrinology consult note for Dr. Marie 68 yo male with PMH of CHF, CAD, s/p bypass, 9 stents, pacemaker, HTN, Hyperlipidemia, COPD, former smoker, diabetes type 2, arthritis presented with tongue swelling after eating shrimp for dinner. Endocrinology was consulted for uncontrolled blood sugars. Swelling has improved with steroids. However his sugars have been greater then 500. Patient states that he has been on diabetic medications since 2011 but can not recall which ones he takes. He denies previous insulin use. Recently he has had a poor diet with increase in sugars. He admitted to numbness in bilateral legs. He denies headaches, dizziness, abd pain, chest pain, N/V, dysuria. 12 point ROS negative except as stated above. PMD: CHF, CAD, pacemaker, HTN, history of strokes, Hyperlipidemia, COPD, former smoker, diabetes type 2, arthritis PSh: bypass and multiple cardiac stents social history: former smoker and heavy alcohol use 40 years ago, denies currently tobacco, alcohol or illicit drug use allergy: iodine, shellfish, milk Review of Systems - Review of Systems All systems: reviewed and no additional remarkable complaints except Past Patient History - Infectious Disease Hx of Infectious Diseases: None - Past Medical History & Family History Past Medical History?: Yes - Past Social History Smoking Status: Former Smoker - CARDIAC Hx Cardia Arrhythmia: Yes Hx Congestive Heart Failure: Yes Hx Hypercholesterolemia: Yes Hx Hypertension: Yes Hx Pacemaker: Yes - PULMONARY Hx Asthma: Yes Hx Chronic Obstructive Pulmonary Disease (COPD): Yes - HEENT Hx HEENT Problems: No - RENAL Hx Chronic Kidney Disease: No - ENDOCRINE/METABOLIC Hx Diabetes Mellitus Type 2: Yes - INTEGUMENTARY Hx Dermatological Problems: No Other/Comment: abdominal area with surgical scars - MUSCULOSKELETAL/RHEUMATOLOGICAL Hx Arthritis: Yes Hx Fractures: No - GASTROINTESTINAL Hx Gastritis: Yes - PSYCHIATRIC Hx Depression: Yes (denies) Hx Substance Use: No - SURGICAL HISTORY Hx Coronary Artery Bypass Graft: Yes (BENDER to LAD, SVG to OM1,OM2, SVG to Diag, SVG to PDA. AVR/MVR (bioprosth)) Hx Coronary Stent: Yes (x9) - ANESTHESIA Hx Anesthesia: Yes Hx Anesthesia Reactions: No Hx Malignant Hyperthermia: No Meds Allergies/Adverse Reactions: Allergies Allergy/AdvReac Type Severity Reaction Status Date / Time iodine Allergy Intermediate SHORTNESS Verified 02/02/19 01:32 OF BREATH shellfish derived Allergy Intermediate ANGIOEDEMA Verified 02/02/19 01:32 milk Allergy Mild SHORTNESS Verified 02/02/19 01:32 OF BREATH - Medications Medications: Current Medications Aspirin (Ecotrin) 81 mg PO DAILY [facility] Last Admin: 02/03/19 09:33 Dose: 81 mg Carvedilol (Coreg) 6.25 mg PO BID [facility] Last Admin: 02/03/19 17:34 Dose: 6.25 mg Dextrose (Dextrose 50% Inj) 0 ml IV STAT PRN; Protocol PRN Reason: Hypoglycemia Protocol Dextrose (Glutose 15) 0 gm PO ONCE PRN; Protocol PRN Reason: Hypoglycemia Protocol Enoxaparin Sodium (Lovenox) 40 mg SC DAILY [facility] Last Admin: 02/03/19 09:28 Dose: 40 mg Furosemide (Lasix) 80 mg PO DAILY [facility] Last Admin: 02/03/19 09:33 Dose: 80 mg Gabapentin (Neurontin) 600 mg PO TID [facility] Last Admin: 02/03/19 17:33 Dose: 600 mg Gemfibrozil (Lopid) 600 mg PO BID [facility] Last Admin: 02/03/19 17:34 Dose: 600 mg Glimepiride (Amaryl) 4 mg PO BID [facility] Last Admin: 02/03/19 17:34 Dose: 4 mg Glucagon (Glucagen Diagnostic Kit) 0 mg IM STAT PRN; Protocol PRN Reason: Hypoglycemia Protocol Dextrose (Dextrose 5% In Water 1000 Ml) 1,000 mls @ 0 mls/hr IV .Q0M PRN; Protocol PRN Reason: Hypoglycemia Protocol Insulin Glargine (Lantus) 30 unit SC [facility] Last Admin: 02/03/19 22:43 Dose: 30 units Insulin Human Regular (Novolin R) 0 unit SC [facility]; Protocol Last Admin: 02/04/19 08:04 Dose: 12 units Lisinopril (Zestril) 10 mg PO DAILY [facility] Last Admin: 02/03/19 09:33 Dose: 10 mg Metformin HCl (Glucophage) 1,000 mg PO BID [facility] Last Admin: 02/03/19 17:34 Dose: 1,000 mg Rosuvastatin Calcium (Crestor) 10 mg PO [facility] Last Admin: 02/03/19 22:42 Dose: 10 mg Ticagrelor (Brilinta) 90 mg PO BID [facility] Last Admin: 02/03/19 17:34 Dose: 90 mg Physical Exam - Constitutional Appears: No Acute Distress - Head Exam Head Exam: ATRAUMATIC, NORMAL INSPECTION, NORMOCEPHALIC - Eye Exam Eye Exam: EOMI, Normal appearance Pupil Exam: NORMAL ACCOMODATION, PERRL - ENT Exam ENT Exam: Mucous Membranes Moist, Normal Exam - Neck Exam Neck exam: Negative for: Tenderness, Thyromegaly - Respiratory Exam Respiratory Exam: Clear to Auscultation Bilateral, NORMAL BREATHING PATTERN. absent: Decreased Breath Sounds, Rales, Rhonchi, Wheezes, Respiratory Distress, Stridor - Cardiovascular Exam Cardiovascular Exam: REGULAR RHYTHM, +S1, +S2. absent: Bradycardia, Tachycardia, Diastolic murmur, Systolic Murmur - GI/Abdominal Exam GI & Abdominal Exam: Distended, Normal Bowel Sounds, Soft. absent: Firm, Guarding, Hernia, Tenderness - Extremities Exam Extremities exam: Positive for: normal inspection. Negative for: pedal edema, tenderness - Neurological Exam Neurological exam: Alert, CN II-XII Intact, Oriented x3 - Psychiatric Exam Psychiatric exam: Normal Affect, Normal Mood - Skin Skin Exam: Dry, Intact, Normal Color, Warm Results - Vital Signs Recent Vital Signs: Last Vital Signs Temp 97.9 F 02/04/19 07:00 Pulse 55 L 02/04/19 07:00 Resp 20 02/04/19 07:00 BP 128/65 02/04/19 07:00 Pulse Ox 96 02/04/19 07:00 - Labs Result Diagrams: 02/02/19 02:09 02/03/19 13:38 Labs: Laboratory Results - last 24 hr 02/03/19 02/03/19 02/04/19 13:38 13:38 01:55 Sodium 128 L Potassium 4.7 Chloride 86 L Carbon Dioxide 28 Anion Gap 19 BUN 53 H Creatinine 1.5 Est GFR ( Amer) 56 Est GFR (Non-Af Amer) 47 POC Glucose (mg/dL) > 500 H* Random Glucose 664 H* Hemoglobin A1c 16.8 H Calcium 9.1 Assessment & Plan - Assessment and Plan (Free Text) Assessment: 68 yo male with PMH of CHF, CAD, s/p bypass adn 9 stents, pacemaker, HTN, Hyperlipidemia, COPD, former smoker, diabetes type 2, arthritis presented with tongue swelling after eating shrimp for dinner. Endocrinology was consulted for uncontrolled blood sugars. Plan: All blood work and imaging reviewed. Patient had Hgba1c of 16.8. finger sticks since admission has ranged from 465-664. He was on steroids of swelling which contributed to elevated sugars during admission however hes hgba1c indicates his sugars have been uncontrolled for some time now. He was given lantus 30 units overnight, will start novolog 14 ac and continue metformin and amaryl. Will consult senior health educator to talk the patient about inulin injection, the patient will most likely have t go home on insulin. Start IV hydration with NS at 75cc. Continue management per primary team . case reviewed and discussed with Dr. Marie
[2019-02-04] MEDS: Enoxaparin 40 mg Syringe SC SCH (10:24)
[2019-02-04] MEDS ORDERED: Sodium Chloride 0.9% 1,000 ML IV SCH (11:00)
[2019-02-04] MEDS: (Novolog) Insulin Aspart, Recombinant 100 u/ml 10 ml vial SC SCH ×5 (11:32→22:30)
--- NOTE | 2019-02-04 18:24 | CP.PCM.PN ---
Subjective - Date & Time of Evaluation Date of Evaluation: 02/04/19 Time of Evaluation: 15:00 - Subjective Subjective: pt sleeping in bed arousable tp adv to leran how to take insulin pt compliance encouraged Objective - Vital Signs/Intake and Output Vital Signs (last 24 hours): Temp Pulse Resp BP Pulse Ox 98.5 F 75 20 128/71 96 02/04/19 15:20 02/04/19 15:20 02/04/19 15:20 02/04/19 15:20 02/04/19 15:20 - Medications Medications: Current Medications Aspirin (Ecotrin) 81 mg PO DAILY [facility] Last Admin: 02/04/19 10:26 Dose: 81 mg Carvedilol (Coreg) 6.25 mg PO BID [facility] Last Admin: 02/04/19 10:26 Dose: 6.25 mg Dextrose (Dextrose 50% Inj) 0 ml IV STAT PRN; Protocol PRN Reason: Hypoglycemia Protocol Dextrose (Glutose 15) 0 gm PO ONCE PRN; Protocol PRN Reason: Hypoglycemia Protocol Enoxaparin Sodium (Lovenox) 40 mg SC DAILY [facility] Last Admin: 02/04/19 10:24 Dose: 40 mg Furosemide (Lasix) 80 mg PO DAILY [facility] Last Admin: 02/04/19 10:28 Dose: 80 mg Gabapentin (Neurontin) 600 mg PO TID [facility] Last Admin: 02/04/19 13:24 Dose: 600 mg Gemfibrozil (Lopid) 600 mg PO BID [facility] Last Admin: 02/04/19 10:26 Dose: 600 mg Glimepiride (Amaryl) 4 mg PO BID [facility] Last Admin: 02/04/19 10:26 Dose: 4 mg Glucagon (Glucagen Diagnostic Kit) 0 mg IM STAT PRN; Protocol PRN Reason: Hypoglycemia Protocol Dextrose (Dextrose 5% In Water 1000 Ml) 1,000 mls @ 0 mls/hr IV .Q0M PRN; Protocol PRN Reason: Hypoglycemia Protocol Sodium Chloride (Sodium Chloride 0.9%) 1,000 mls @ 75 mls/hr IV [id number] [facility] Stop: 02/05/19 00:19 Last Admin: 02/04/19 11:21 Dose: 75 mls/hr Insulin Aspart (Novolog) 14 unit SC AC [facility] Last Admin: 02/04/19 11:32 Dose: 14 acc Insulin Aspart (Novolog) 0 unit SC ACHS [facility] Last Admin: 02/04/19 11:32 Dose: 6 units Insulin Glargine (Lantus) [address] [facility] Last Admin: 02/03/19 22:43 Dose: 30 units Lisinopril (Zestril) 10 mg PO DAILY [facility] Last Admin: 02/04/19 10:26 Dose: 10 mg Metformin HCl (Glucophage) 1,000 mg PO BID [facility] Last Admin: 02/04/19 10:26 Dose: 1,000 mg Rosuvastatin Calcium (Crestor) [address] [facility] Last Admin: 02/03/19 22:42 Dose: 10 mg Ticagrelor (Brilinta) 90 mg PO BID [facility] Last Admin: 02/04/19 10:26 Dose: 90 mg - Labs Labs: 02/02/19 02:09 02/03/19 13:38 - Constitutional Appears: Well - Head Exam Head Exam: ATRAUMATIC, NORMAL INSPECTION, NORMOCEPHALIC - Eye Exam Eye Exam: EOMI, Normal appearance, PERRL Pupil Exam: NORMAL ACCOMODATION, PERRL - ENT Exam ENT Exam: Mucous Membranes Moist, Normal Exam - Neck Exam Neck Exam: Full ROM, Normal Inspection. absent: Lymphadenopathy - Respiratory Exam Respiratory Exam: Decreased Breath Sounds - Cardiovascular Exam Cardiovascular Exam: REGULAR RHYTHM, +S1, +S2 - GI/Abdominal Exam GI & Abdominal Exam: Soft, Diminished Bowel Sounds - Rectal Exam Rectal Exam: Deferred - Neurological Exam Neurological Exam: Oriented x3 Assessment and Plan (1) Tongue swelling Status: Acute (2) Acute encephalopathy Status: Acute (3) Acute posterior epistaxis Status: Acute (4) Adjustment disorder Status: Acute (5) Angioedema Status: Acute (6) Bronchitis Status: Acute (7) CHF (congestive heart failure) Status: Acute (8) Diabetes 1.5, managed as type 2 Status: Acute (9) History of gastroesophageal reflux (GERD) Status: Acute (10) History of mitral valve replacement Status: Acute - Assessment and Plan (Free Text) Plan: medications reviewed labs reviewed vitals reviewed amaryl brillinta coreg crestor dextrose 5% in water 1000 Ml dextrose 50% inj ecotrin glucagen diagnostic kit glucophage glutose 15 lantus lasix lopid lovenox neurontin novolog sodium chloride 0.9% zestril fs still high cover iwth novolog lantus at night usually there is not here today although pt will be discharge today d.w staff and flatwork supervisor on floor endo cnsult Moderate complexity of care [place] taper steroid pt made aware
--- NOTE | 2019-02-04 20:54 | CARD ---
APPROVED REPORT Date of service: 02/02/2019 EKG Measurement Heart [id number] <Conclusion> Sinus rhythm with 1st degree AV block Nonspecific intraventricular block Abnormal ECG
--- NOTE | 2019-02-04 21:40 | CON ---
DATE: 02/04/2019 LOCATION: Room 657. HISTORY OF PRESENT ILLNESS: This is a 68-year-old male with known history of type 2 diabetes, on oral hypoglycemic therapy, presenting here with an acute allergic reaction and given steroid therapy with supervening marked hyperglycemic accelerations and is now being referred for diabetic evaluation and management. PAST MEDICAL HISTORY: History of type 2 diabetes, previously on Amaryl given as 4 mg b.i.d. and has been off metformin for a few months now, history of hypertension and dyslipidemia, history of coronary artery disease with previous coronary artery bypass graft surgery and subsequent coronary stent placements, history of cardiac arrhythmias with subsequent pacemaker insertion, history of hypertension and dyslipidemia, history of chronic obstructive lung disease with previous admissions for exacerbation of the same, has had prior admissions for congestive heart failure. He also has a previous CVA with residual right-sided weakness. FAMILY HISTORY: Positive for hypertension and heart disease. SOCIAL HISTORY: The patient is a former smoker with chronic alcoholism, has a supportive family otherwise. REVIEW OF SYSTEMS: Admits to generalized body weakness with easy fatigability and tiredness and suboptimal energy level, also admits to bifrontal headaches with recent visual blurring and episodic dizziness and lightheadedness. No chest pains or palpitations, but admits to exertional shortness of breath. His oral intake has been variable with occasional dyspepsia and recent marked polyuria, nocturia, and polydipsia. He also admits to lower extremity painful paresthesias, especially nocturnally. PHYSICAL EXAMINATION: GENERAL: This is an overweight male, in no apparent distress. VITAL SIGNS: Blood pressure 144/80, pulse 100 beats per minute regular, temperature 98, and respirations 20. Height is 5 feet and 11 inches and weight is 240 pounds. HEENT: Head normocephalic. Eyes, anicteric with pink conjunctivae. Funduscopy is not possible at this time. Ears, nose, and throat are otherwise normal. NECK: Supple. Thyroid gland is in normal size. No carotid bruits or cervical adenopathy. CARDIOPULMONARY: Some adynamic precordium. S1 and S2 is rapid and regular. LUNGS: Clear to auscultation. ABDOMEN: Flat and soft with positive bowel sounds. EXTREMITIES: No peripheral edema. Pulses are +2 bilaterally. LABORATORY DATA: His chemistry showed a BUN of 53, sodium 128, potassium 4.7, chloride 86, CO2 of 28, glucose 664, and creatinine 1.5. His glucose levels have been over 500 over the last 24 hours and his hemoglobin A1c is 16.8%, which is clearly elevated and indicative of suboptimal metabolic control of his diabetic condition even prior to this admission and even prior to the usage of steroid therapy as given. ASSESSMENT: This is a 68-year-old male with uncontrolled and decompensated type 2 insulin-requiring diabetes with marked hyperglycemic accelerations, precipitated by the intercurrent steroid therapy, but also has had prior suboptimal metabolic control of his diabetic condition with a subtherapeutic diabetic regimen as noted with very poor adherence or compliance to oral hypoglycemic therapy and medical visits as noted. He also has diabetic microvascular complications of polyneuropathy and nephropathy with underlying chronic kidney disease. However, there is a superimposed spurious hyponatremia and prerenal azotemia with the intercurrent increased osmotic diuresis from the marked hyperglycemic accelerations as noted thereof. He also has diabetic macrovascular complications of cerebrovascular disease, coronary artery disease, and peripheral arterial disease and vasculopathy. PLAN OF MANAGEMENT: The patient will certainly need insulin therapy to optimize metabolic control at this time, especially now with the marked glucose toxicity as noted thereof. With this tremendous glycemic accelerations, there is increased insulin resistance with very impaired response to any kind of oral hypoglycemic therapy at this time. We will initiate the basal and bolus insulin regimen which is more physiological at this point in time and add NovoLog given as 14 units t.i.d. before meals to start today as ordered. We will continue the Lantus given as 30 units subcutaneously at bedtime daily as given. We will titrate incrementally as indicated to optimize metabolic control. We will also modify the coverage scale to obviate hypoglycemia and detailed orders have been given. Diabetic educations to include insulin self-administration and glucose monitoring will be initiated at this time. We will obtain also a dietary evaluation for healthier food choices and weight loss efforts thereof. We will follow up and advise accordingly. Selina Marie MD
[2019-02-04] MEDS: (Lantus) Insulin Glargine, Recombinant SC SCH (22:27)
[2019-02-05] MEDS: (Novolog) Insulin Aspart, Recombinant 100 u/ml 10 ml vial SC SCH ×5 (07:31→18:10)
--- NOTE | 2019-02-05 07:48 | CP.PCM.PN ---
Subjective - Date & Time of Evaluation Date of Evaluation: 02/05/19 Time of Evaluation: 07:44 - Subjective Subjective: Endocrinology progress note for Dr. Marie Patient seen and examined at bedside. No acute events overnight. No acute distress, patient is resting comfortably. Patient denies any chest pain, abd pain, n/v, diarrhea or constipation, sob. He is tolerating diet. Objective - Vital Signs/Intake and Output Vital Signs (last 24 hours): Temp Pulse Resp BP Pulse Ox 98 F 68 20 104/62 96 02/04/19 23:20 02/04/19 23:20 02/04/19 23:20 02/04/19 23:20 02/04/19 23:20 Intake and Output: 02/05/19 02/05/19 06:59 18:59 Intake Total 950 Balance 950 - Medications Medications: Current Medications Aspirin (Ecotrin) 81 mg PO DAILY [facility] Last Admin: 02/04/19 10:26 Dose: 81 mg Carvedilol (Coreg) 6.25 mg PO BID [facility] Last Admin: 02/04/19 18:23 Dose: 6.25 mg Dextrose (Dextrose 50% Inj) 0 ml IV STAT PRN; Protocol PRN Reason: Hypoglycemia Protocol Dextrose (Glutose 15) 0 gm PO ONCE PRN; Protocol PRN Reason: Hypoglycemia Protocol Enoxaparin Sodium (Lovenox) 40 mg SC DAILY [facility] Last Admin: 02/04/19 10:24 Dose: 40 mg Furosemide (Lasix) 80 mg PO DAILY [facility] Last Admin: 02/04/19 10:28 Dose: 80 mg Gabapentin (Neurontin) 600 mg PO TID [facility] Last Admin: 02/04/19 18:23 Dose: 600 mg Gemfibrozil (Lopid) 600 mg PO BID [facility] Last Admin: 02/04/19 18:22 Dose: 600 mg Glimepiride (Amaryl) 4 mg PO BID [facility] Last Admin: 02/04/19 18:22 Dose: 4 mg Glucagon (Glucagen Diagnostic Kit) 0 mg IM STAT PRN; Protocol PRN Reason: Hypoglycemia Protocol Dextrose (Dextrose 5% In Water 1000 Ml) 1,000 mls @ 0 mls/hr IV .Q0M PRN; Protocol PRN Reason: Hypoglycemia Protocol Insulin Aspart (Novolog) 14 unit SC AC [facility] Last Admin: 02/05/19 07:38 Dose: 14 units Insulin Aspart (Novolog) 0 unit SC ACHS [facility] Last Admin: 02/05/19 07:31 Dose: Not Given Insulin Glargine (Lantus) 30 unit SC [facility] Last Admin: 02/04/19 22:27 Dose: 30 units Lisinopril (Zestril) 10 mg PO DAILY [facility] Last Admin: 02/04/19 10:26 Dose: 10 mg Metformin HCl (Glucophage) 1,000 mg PO BID [facility] Last Admin: 02/04/19 18:23 Dose: 1,000 mg Rosuvastatin Calcium (Crestor) 10 mg PO [facility] Last Admin: 02/04/19 22:29 Dose: 10 mg Ticagrelor (Brilinta) 90 mg PO BID [facility] Last Admin: 02/04/19 18:22 Dose: 90 mg - Labs Labs: 02/02/19 02:09 02/03/19 13:38 - Additional Findings Additional findings: - Constitutional Appears: No Acute Distress - Head Exam Head Exam: ATRAUMATIC, NORMAL INSPECTION, NORMOCEPHALIC - Eye Exam Eye Exam: EOMI, Normal appearance Pupil Exam: NORMAL ACCOMODATION, PERRL - ENT Exam ENT Exam: Mucous Membranes Moist, Normal Exam - Neck Exam Neck exam: Negative for: Tenderness, Thyromegaly - Respiratory Exam Respiratory Exam: Clear to Auscultation Bilateral, NORMAL BREATHING PATTERN. absent: Decreased Breath Sounds, Rales, Rhonchi, Wheezes, Respiratory Distress, Stridor - Cardiovascular Exam Cardiovascular Exam: REGULAR RHYTHM, +S1, +S2. absent: Bradycardia, Tachycardia, Diastolic murmur, Systolic Murmur - GI/Abdominal Exam GI & Abdominal Exam: Distended, Normal Bowel Sounds, Soft. absent: Firm, Guarding, Hernia, Tenderness - Extremities Exam Extremities exam: Positive for: normal inspection. Negative for: pedal edema, tenderness - Neurological Exam Neurological exam: Alert, CN II-XII Intact, Oriented x3 - Psychiatric Exam Psychiatric exam: Normal Affect, Normal Mood - Skin Skin Exam: Dry, Intact, Normal Color, Warm Assessment and Plan - Assessment and Plan (Free Text) Assessment: 68 yo male with PMH of CHF, CAD, s/p bypass adn 9 stents, pacemaker, HTN, Hyperlipidemia, COPD, former smoker, diabetes type 2, arthritis presented with tongue swelling after eating shrimp for dinner. Endocrinology was consulted for uncontrolled blood sugars. Plan: All blood work and imaging reviewed. Patient had Hgba1c of 16.8. finger sticks since admission has ranged from 199-434 over past 24 hours. Patient is no longer on steriods. He is currently on lantus 30 units at night, and novolog 14 ac and as well as metformin 1000 BID and amaryl 4mg bid. Will consult nurses educator to talk the patient about inulin injection, the patient will most likely have to go home on insulin. Continue management per primary team . case reviewed and discussed with Dr. Marie
[2019-02-05 08:40] LABS: ALB/GLOB RATIO 1.4 (1.0-2.1); ALBUMIN 3.8 g/dL (3.5-5.0); ALT/SGPT 26 U/L (21-72); AST/SGOT 32 U/L (17-59); BLOOD UREA NITROGEN 54 mg/dL (9-20); CALCIUM 8.5 mg/dl (8.6-10.4); GFR NON-AFRICAN AMERICAN 50
[2019-02-05] MEDS: Enoxaparin 40 mg Syringe SC SCH (09:07)
--- NOTE | 2019-02-05 12:54 | CP.PCM.PN ---
Subjective - Date & Time of Evaluation Date of Evaluation: 02/05/19 Time of Evaluation: 11:00 Objective - Vital Signs/Intake and Output Vital Signs (last 24 hours): Temp Pulse Resp BP Pulse Ox 98 F 67 20 110/75 96 02/05/19 07:00 02/05/19 07:00 02/05/19 07:00 02/05/19 09:06 02/05/19 07:00 Intake and Output: 02/05/19 02/05/19 06:59 18:59 Intake Total 950 Balance 950 - Medications Medications: Current Medications Aspirin (Ecotrin) 81 mg PO DAILY [facility] Last Admin: 02/05/19 09:07 Dose: 81 mg Carvedilol (Coreg) 6.25 mg PO BID [facility] Last Admin: 02/05/19 09:07 Dose: 6.25 mg Dextrose (Dextrose 50% Inj) 0 ml IV STAT PRN; Protocol PRN Reason: Hypoglycemia Protocol Dextrose (Glutose 15) 0 gm PO ONCE PRN; Protocol PRN Reason: Hypoglycemia Protocol Enoxaparin Sodium (Lovenox) 40 mg SC DAILY [facility] Last Admin: 02/05/19 09:07 Dose: 40 mg Furosemide (Lasix) 80 mg PO DAILY [facility] Last Admin: 02/05/19 09:06 Dose: 80 mg Gabapentin (Neurontin) 600 mg PO TID [facility] Last Admin: 02/05/19 09:07 Dose: 600 mg Gemfibrozil (Lopid) 600 mg PO BID [facility] Last Admin: 02/05/19 09:13 Dose: 600 mg Glimepiride (Amaryl) 4 mg PO BID [facility] Last Admin: 02/05/19 09:07 Dose: 4 mg Glucagon (Glucagen Diagnostic Kit) 0 mg IM STAT PRN; Protocol PRN Reason: Hypoglycemia Protocol Dextrose (Dextrose 5% In Water 1000 Ml) 1,000 mls @ 0 mls/hr IV .Q0M PRN; Protocol PRN Reason: Hypoglycemia Protocol Insulin Aspart (Novolog) 0 unit SC A[facility]S [facility] Last Admin: 02/05/19 11:39 Dose: Not Given Insulin Aspart (Novolog) 16 unit SC AC [facility] Insulin Glargine (Lantus) 36 unit SC [facility] Lisinopril (Zestril) 10 mg PO DAILY [facility] Last Admin: 02/05/19 09:06 Dose: 10 mg Metformin HCl (Glucophage) 1,000 mg PO BID [facility] Last Admin: 02/05/19 09:07 Dose: 1,000 mg Pneumococcal Polyvalent Vaccine (Pneumovax 23 Vaccine) 0.5 ml IM .ONCE ONE Stop: 02/06/19 14:01 Rosuvastatin Calcium (Crestor) 10 mg PO HS [facility] Last Admin: 02/04/19 22:29 Dose: 10 mg Ticagrelor (Brilinta) 90 mg PO BID [facility] Last Admin: 02/05/19 09:13 Dose: 90 mg - Labs Labs: 02/02/19 02:09 02/05/19 07:50 - Constitutional Appears: Well - Head Exam Head Exam: ATRAUMATIC, NORMAL INSPECTION, NORMOCEPHALIC - Eye Exam Eye Exam: EOMI, Normal appearance, PERRL Pupil Exam: NORMAL ACCOMODATION, PERRL - ENT Exam ENT Exam: Mucous Membranes Moist, Normal Exam - Neck Exam Neck Exam: Full ROM, Normal Inspection. absent: Lymphadenopathy - Respiratory Exam Respiratory Exam: Decreased Breath Sounds - Cardiovascular Exam Cardiovascular Exam: REGULAR RHYTHM, +S1, +S2 - GI/Abdominal Exam GI & Abdominal Exam: Soft, Diminished Bowel Sounds - Rectal Exam Rectal Exam: Deferred Assessment and Plan (1) Tongue swelling Status: Acute (2) Acute encephalopathy Status: Acute (3) Acute posterior epistaxis Status: Acute (4) Adjustment disorder Status: Acute (5) Angioedema Status: Acute (6) Bronchitis Status: Acute (7) CHF (congestive heart failure) Status: Acute (8) Diabetes 1.5, managed as type 2 Status: Acute (9) History of gastroesophageal reflux (GERD) Status: Acute (10) History of mitral valve replacement Status: Acute - Assessment and Plan (Free Text) Plan: medications, labs and vitals reviewed
--- NOTE | 2019-02-05 16:29 | CP.PCM.PN ---
Subjective - Date & Time of Evaluation Date of Evaluation: 02/05/19 Time of Evaluation: 13:00 - Subjective Subjective: patient seen today states feels better, denies any chest pain, sob, dizziness BS - improved with current regimen No overnight events reported by RN Objective - Vital Signs/Intake and Output Vital Signs (last 24 hours): Temp Pulse Resp BP Pulse Ox 98 F 67 20 110/75 96 02/05/19 07:00 02/05/19 07:00 02/05/19 07:00 02/05/19 09:06 02/05/19 07:00 Intake and Output: 02/05/19 02/05/19 06:59 18:59 Intake Total 950 720 Balance 950 720 - Medications Medications: Current Medications Aspirin (Ecotrin) 81 mg PO DAILY [facility] Last Admin: 02/05/19 09:07 Dose: 81 mg Carvedilol (Coreg) 6.25 mg PO BID [facility] Last Admin: 02/05/19 09:07 Dose: 6.25 mg Dextrose (Dextrose 50% Inj) 0 ml IV STAT PRN; Protocol PRN Reason: Hypoglycemia Protocol Dextrose (Glutose 15) 0 gm PO ONCE PRN; Protocol PRN Reason: Hypoglycemia Protocol Enoxaparin Sodium (Lovenox) 40 mg SC DAILY [facility] Last Admin: 02/05/19 09:07 Dose: 40 mg Furosemide (Lasix) 80 mg PO DAILY [facility] Last Admin: 02/05/19 09:06 Dose: 80 mg Gabapentin (Neurontin) 600 mg PO TID [facility] Last Admin: 02/05/19 13:44 Dose: 600 mg Gemfibrozil (Lopid) 600 mg PO BID [facility] Last Admin: 02/05/19 09:13 Dose: 600 mg Glimepiride (Amaryl) 4 mg PO BID [facility] Last Admin: 02/05/19 09:07 Dose: 4 mg Glucagon (Glucagen Diagnostic Kit) 0 mg IM STAT PRN; Protocol PRN Reason: Hypoglycemia Protocol Dextrose (Dextrose 5% In Water 1000 Ml) 1,000 mls @ 0 mls/hr IV .Q0M PRN; Protocol PRN Reason: Hypoglycemia Protocol Insulin Aspart (Novolog) 0 unit SC ACHS [facility] Last Admin: 02/05/19 11:39 Dose: Not Given Insulin Aspart (Novolog) 16 unit SC AC [facility] Insulin Glargine (Lantus) 36 unit SC HS [facility] Lisinopril (Zestril) 10 mg PO DAILY [facility] Last Admin: 02/05/19 09:06 Dose: 10 mg Metformin HCl (Glucophage) 1,000 mg PO BID [facility] Last Admin: 02/05/19 09:07 Dose: 1,000 mg Pneumococcal Polyvalent Vaccine (Pneumovax 23 Vaccine) 0.5 ml IM .ONCE ONE Stop: 02/06/19 14:01 Rosuvastatin Calcium (Crestor) 10 mg PO [facility] Last Admin: 02/04/19 22:29 Dose: 10 mg Ticagrelor (Brilinta) 90 mg PO BID [facility] Last Admin: 02/05/19 09:13 Dose: 90 mg - Labs Labs: 02/02/19 02:09 02/05/19 07:50 Assessment and Plan - Assessment and Plan (Free Text) Assessment: A/P 68 yr old male with pmhx of CAD, Cardia Arrhythmia, CHF, COPD, CVA , Diabetes, Gastritis, HTN, Hypercholesterolemia admitted with tongue swelling BS running high over 500's hgb aic- 16.8 Dr. Marie consulted for uncontrolled DM and started on INSULIN and BS better controlled seen by Dr. Aquino cleared for discharge home today and f/u with Dr. Aquino and Dr. Marie office Discharge plan discussed with patient who understands and agrees with plan RX given on discharge
[2019-02-05] MEDS ORDERED: (Novolog) Insulin Aspart, Recombinant 100 u/ml 10 ml vial SC SCH (16:30)
[2019-02-05 17:47] VITALS: BP 104/52; PULSE 60; TEMP 97.6; O2SAT 100
--- NOTE | 2019-02-05 19:10 | CP.PCM.DIS ---
Provider - Provider Date of Admission: 02/04/19 15:47 Attending physician: Deidre Lux MD Primary care physician: john murillo Consults: 02/04/19 07:10 Physician Consult Routine Comment: Consulting Provider: Selina Marie Consulting Physician: Selina Marie Reason for Consult: uncontrolled DM 02/04/19 10:53 Diabetic Education Referral Routine Comment: Physician Instructions: Reason For Exam: uncontrolled DM, will need insulin Time Spent in preparation of Discharge (in minutes): 20 Diagnosis - Discharge Diagnosis (1) Tongue swelling Status: Acute (2) Acute encephalopathy Status: Acute Priority: High (3) Acute posterior epistaxis Status: Acute (4) Adjustment disorder Status: Acute (5) Angioedema Status: Acute (6) Bronchitis Status: Acute (7) CHF (congestive heart failure) Status: Acute (8) Diabetes 1.5, managed as type 2 Status: Acute (9) History of gastroesophageal reflux (GERD) Status: Acute (10) History of mitral valve replacement Status: Acute Hospital Course - Lab Results Lab Results: Most Recent Lab Values WBC 9.2 K/uL (4.8-10.8) 02/02/19 02:09 RBC 5.30 Mil/uL (4.40-5.90) 02/02/19 02:09 Hgb 13.8 g/dL (12.0-18.0) 02/02/19 02:09 Hct 44.2 % (35.0-51.0) 02/02/19 02:09 MCV 83.4 fL (80.0-94.0) D 02/02/19 02:09 MCH 26.0 pg (27.0-31.0) L 02/02/19 02:09 MCHC 31.1 g/dL (33.0-37.0) L 02/02/19 02:09 RDW 16.1 % (11.5-14.5) H 02/02/19 02:09 Plt Count 176 K/uL (130-400) 02/02/19 02:09 MPV 9.8 fL (7.2-11.7) 02/02/19 02:09 Neut % (Auto) 65.8 % (50.0-75.0) 02/02/19 02:09 Lymph % (Auto) 21.0 % (20.0-40.0) 02/02/19 02:09 [place] % (Auto) 7.4 % (0.0-10.0) 02/02/19 02:09 Eos % (Auto) 4.1 % (0.0-4.0) H 02/02/19 02:09 Baso % (Auto) 1.7 % (0.0-2.0) 02/02/19 02:09 Neut # (Auto) 6.1 K/uL (1.8-7.0) 02/02/19 02:09 Lymph # (Auto) 1.9 K/uL (1.0-4.3) 02/02/19 02:09 [place] # (Auto) 0.7 K/uL (0.0-0.8) 02/02/19 02:09 Eos # (Auto) 0.4 K/uL (0.0-0.7) 02/02/19 02:09 Baso # (Auto) 0.2 K/uL (0.0-0.2) 02/02/19 02:09 Sodium 136 mmol/L (132-148) 02/05/19 07:50 Potassium 3.9 mmol/L (3.6-5.2) 02/05/19 07:50 Chloride 101 mmol/L (98-107) 02/05/19 07:50 Carbon Dioxide 28 mmol/L (22-30) 02/05/19 07:50 Anion Gap 11 (10-20) 02/05/19 07:50 BUN 54 mg/dL (9-20) H 02/05/19 07:50 Creatinine 1.4 mg/dL (0.8-1.5) 02/05/19 07:50 Est GFR ( Amer) > 60 02/05/19 07:50 Est GFR (Non-Af Amer) 50 02/05/19 07:50 POC Glucose (mg/dL) 167 mg/dL (65-110) H 02/05/19 16:09 Random Glucose 193 mg/dL (75-110) H D 02/05/19 07:50 Hemoglobin A1c 16.8 % (4.2-6.5) H 02/03/19 13:38 Calcium 8.5 mg/dl (8.6-10.4) L 02/05/19 07:50 Total Bilirubin 0.4 mg/dL (0.2-1.3) 02/05/19 07:50 AST 32 U/L (17-59) 02/05/19 07:50 ALT 26 U/L (21-72) 02/05/19 07:50 Alkaline Phosphatase 60 U/L (38-126) 02/05/19 07:50 Troponin I < 0.0120 ng/mL (0.00-0.120) 02/02/19 02:09 NT-Pro-B Natriuret Pep 570 pg/mL (0-900) 02/02/19 02:09 Total Protein 6.5 g/dL (6.3-8.3) 02/05/19 07:50 Albumin 3.8 g/dL (3.5-5.0) 02/05/19 07:50 Globulin 2.7 gm/dL (2.2-3.9) 02/05/19 07:50 Albumin/Globulin Ratio 1.4 (1.0-2.1) 02/05/19 07:50 TSH 3rd Generation 0.69 mIU/L (0.46-4.68) 02/05/19 07:50 - Hospital Course Hospital Course: Patient was admitted with the anaphylaxis treated with the steroid eventually decided to discharge the patient fingerstick was very high hemoglobin A1c was 16.8 so admission was hold fingerstick was in 600s patient refusing the subcutaneous insulin eventually patient agreed patient decided to patient decided to await diabetic education so was 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 eventually patient is dischargelong acting insulin lantus disharge med Medications Amaryl Brilinta Coreg Rosuvastatin Metformin Insulin glargine 3600 Lasix 80 mg Lovenox 40 mg Gabapentin 60 Aspart insulin also 16 units subcutaneous before meals Lisinopril 10 mg Discharge Exam - Head Exam Head Exam: ATRAUMATIC, NORMAL INSPECTION, NORMOCEPHALIC - Eye Exam Eye Exam: Conjunctival injection - ENT Exam ENT Exam: Mucous Membranes Dry - Neck Exam Neck exam: Full Rom - Respiratory Exam Respiratory Exam: Decreased Breath Sounds - Cardiovascular Exam Cardiovascular Exam: REGULAR RHYTHM, +S1, +S2 - GI/Abdominal Exam GI & Abdominal Exam: Diminished Bowel Sounds, Normal Bowel Sounds, Soft - Rectal Exam Rectal Exam: Deferred - Neurological Exam Neurological exam: Oriented x3 Discharge Plan - Discharge Medications Prescriptions: Glimepiride [amaRYL] 4 mg PO BID #60 tab Insulin Glargine,Hum.rec.anlog [Basaglar Kwikpen U-100] 30 unit SQ HS 30 Days insuln.pen Ticagrelor [Brilinta] 90 mg PO BID #60 tab Carvedilol [Coreg] 6.25 mg PO BID #60 tab Rosuvastatin Calcium [Crestor] 10 mg PO DAILY #30 tab Aspirin [Ecotrin] 81 mg PO DAILY #30 tabec metFORMIN [glucOPHAGE] 1,000 mg PO BID #120 tab Furosemide [Lasix] 80 mg PO DAILY #30 tab Gemfibrozil [Lopid] 600 mg PO BID #60 tab Gabapentin [Neurontin] 600 mg PO TID #90 tab Insulin Aspart, Recombinant [Novolog] 14 unit SC AC 30 Days unit Pen Needle, Diabetic [Pen Needle] 1 each MC QID 30 Days dis.needle Lisinopril [Zestril] 10 mg PO DAILY #30 tab - Follow Up Plan Condition: GOOD Disposition: HOME/ ROUTINE Instructions: Hyperglycemia, Adult, Heart Healthy Diet, Diabetes Exchange Diet, Angioedema, Heart Failure, Adult (DC), Diabetes Diet Additional Instructions: Please follow up with Dr. Aquino office in 1 week Please follow up with Dr. Marie office ( follow up visit for DM ) Please do Blood Sugar before meals and write it done and bring to Dr. Marie office for the next appointment - so she can adjust the medications Please continue medication as per med. rec. Referrals: Selina Marie MD [Medical Doctor] - Alison Lux MD [Staff Provider] -
[2019-02-05] MEDS ORDERED: (Lantus) Insulin Glargine, Recombinant SC SCH (22:00)
--- NOTE | 2019-02-06 07:49 | PN ---
DATE: 02/05/2019 ENDOCRINOLOGY FOLLOWUP NOTE LOCATION: In room 657. SUBJECTIVE: This is a 68-year-old male with recent uncontrolled type 2 insulin-requiring diabetes, presenting here with acute angioedema, ALLERGIC REACTION TO SHELLFISH, and received IV steroid therapy with hyperglycemic accelerations as expected thereof. However, he also had extremely elevated A1c values indicative of very poor outpatient metabolic control of his diabetic condition even prior to this admission. His A1c levels have been reported as 16.8% which is extremely elevated and is clearly indicative of poor adherence with oral hyperglycemic therapy with no recent medical followup nor lab testing undertaken as per the patient. His glucose levels overnight were elevated, 251 to over 500 mg/dL. His chemistries showed a BUN of 54, sodium 136, potassium 3.9, chloride 101, CO2 of 28, glucose 193, and creatinine 1.4. ASSESSMENT: This is a 68-year-old male with uncontrolled and decompensated type 2 insulin requiring diabetes with marked hyperglycemic accelerations even prior to the administration of intravenous steroid therapy given for acute drug reaction and angioedema and this has been confirmed by a very elevated A1c value of 16.8% as noted. He also has diabetic macrovascular complications of coronary artery disease with previous coronary artery bypass graft surgery with previous cerebrovascular disease and residual right hemiparesis and concomitant underlying peripheral arterial vasculopathy as noted. Moreover, he also has microvascular complications of polyneuropathy and nephropathy with underlying chronic kidney disease as noted. PLAN OF MANAGEMENT: We will modify once again his basal and bolus insulin regimen to optimize metabolic control. A beside discussion was undertaken and the patient regarding the imperative need for tighter metabolic control and especially the need for insulin therapy at this time not only for inpatient, but also for outpatient diabetic outpatient management. The patient has agreed to go on insulin at this time as discussed at the bedside. We will increase his Lantus to 36 units subcutaneous at bedtime daily to start tonight as ordered. We will also continue the low-dose correction scale using NovoLog insulin to obviate hypoglycemia and detailed orders have been given. Moreover, we will also modify his prandial insulin to be given as NovoLog at 16 units 3 times daily before meals to start today as ordered. We will obtain serial chemistries and supplement accordingly as needed. We will also reinforce and dietary instructions with this admission. We will request our diabetic nurse to teach the patient insulin self-administration using an insulin pen many years ago as noted. We will also request a team leader surgery to have nutritional counseling with healthier food choices as his girlfriend does the home cooking at home with more adherence to healthier food products is noted. We will obtain serial chemistries and supplement accordingly as needed. We will follow with you. Selina Marie MD
[2019-02-06] MEDS ORDERED: Pneumococcal 23-Valent Vaccine IM ONE (14:00)
== END 2019-02-05 20:05 | disposition home or self-care (01) | DRG 923 ==
LOC: C.ER 01:17 → C.6T 02:14 → OBSVTOIN 02-04 15:47
PROVIDERS: ADMIT Internal Medicine Nephrology; ATTEND Internal Medicine Nephrology
DX: T78.1XXA Other adverse food reactions, not elsewhere classified, initial encounter (principal); E87.1 Hypo-osmolality and hyponatremia; I13.0 Hypertensive heart and chronic kidney disease with heart failure and stage 1 through stage 4 chronic kidney disease, or unspecified chronic kidney disease; I69.351 Hemiplegia and hemiparesis following cerebral infarction affecting right dominant side; G93.49 Other encephalopathy; E11.65 Type 2 diabetes mellitus with hyperglycemia; T78.3XXA Angioneurotic edema, initial encounter; Z79.4 Long term (current) use of insulin; E11.21 Type 2 diabetes mellitus with diabetic nephropathy; E11.42 Type 2 diabetes mellitus with diabetic polyneuropathy; N18.9 Chronic kidney disease, unspecified; E78.00 Pure hypercholesterolemia, unspecified; J44.9 Chronic obstructive pulmonary disease, unspecified; Z95.0 Presence of cardiac pacemaker; I50.9 Heart failure, unspecified; E11.51 Type 2 diabetes mellitus with diabetic peripheral angiopathy without gangrene; E11.22 Type 2 diabetes mellitus with diabetic chronic kidney disease; E66.01 Morbid (severe) obesity due to excess calories; Z87.891 Personal history of nicotine dependence; Z95.1 Presence of aortocoronary bypass graft; I25.10 Atherosclerotic heart disease of native coronary artery without angina pectoris; T38.0X5A Adverse effect of glucocorticoids and synthetic analogues, initial encounter; R04.0 Epistaxis; F43.20 Adjustment disorder, unspecified; K21.9 Gastro-esophageal reflux disease without esophagitis; Z95.2 Presence of prosthetic heart valve

== ENCOUNTER 2019-02-10 12:20 | Observation (INO) | payer MEDICARE, MEDICAID ==
[2019-02-10 12:20] VITALS: BMI 33.5
[2019-02-10 13:56] LABS: BASO # 0.1 K/uL (0.0-0.2); BASO % 1.2 % (0.0-2.0); EOS # 0.7 K/uL (0.0-0.7); EOS % 6.4 % (0.0-4.0); HEMOGLOBIN 13.3 g/dL (12.0-18.0); LYMPH # 1.5 K/uL (1.0-4.3); LYMPH % 13.7 % (20.0-40.0); MEAN CELL VOLUME 82.5 fL (80.0-94.0); MEAN CORPUSCULAR HEMOGLOBIN 25.6 pg (27.0-31.0); MEAN PLATELET VOLUME 9.8 fL (7.2-11.7); MONO # 0.8 K/uL (0.0-0.8); MONO % 7.6 % (0.0-10.0); NEUT # 7.7 K/uL (1.8-7.0); NEUT % 71.1 % (50.0-75.0); RBC 5.2 Mil/uL (4.40-5.90); RED CELL DISTRIBUTION WIDTH 16.4 % (11.5-14.5); WHITE BLOOD COUNT 10.9 K/uL (4.8-10.8)
[2019-02-10] MEDS ORDERED: Sodium Chloride 0.9% 1,000 ML IV ONE ×2 (14:00→14:03)
--- NOTE | 2019-02-10 14:07 | C.PDOC ---
History Of Present Illness Patient is a 68 year old male, with a PMHx of HTN and diabetes, who presents to the ED c/o feeling lightheaded and weak after taking his insulin today and noticed that he had low blood pressure. Patient states that he is new to insul in. He denies any CP and states that he did not fall. Time Seen by Provider: 02/10/19 13:28 Chief Complaint (Nursing): Medical Clearance History Per: Patient History/Exam Limitations: no limitations Onset/Duration Of Symptoms: Hrs Recent travel outside of the [place]: No Additional History Per: Patient Past Medical History Reviewed: Historical Data, Nursing Documentation, Vital Signs Vital Signs: Last Vital Signs Temp 97.9 F 02/10/19 12:28 Pulse 63 02/10/19 12:28 Resp 18 02/10/19 12:28 BP 112/70 02/10/19 12:28 Pulse Ox 96 02/10/19 12:28 - Medical History PMH: Arthritis, Asthma, CAD, Cardia Arrhythmia, CHF, COPD, CVA (affecting right side of body), Depression (denies), Diabetes, Gastritis, HTN, Hypercholesterolemia Denies: Fractures, Chronic Kidney Disease Surgical History: CABG (BENDER to LAD, SVG to OM1,OM2, SVG to Diag, SVG to PDA. AVR/MVR (bioprosth)), Coronary Stent (x9), Pacemaker - [employer] Procedures CORONAR ARTERIOGR-2 CATH (07/19/14) DILATION OF CORONARY ARTERY, ONE SITE, PERCUTANEOUS APPROACH (05/20/16) INSERTION OF INFUSION DEV INTO SUP VENA CAVA, PERC APPROACH (01/19/17) INSPECTION OF LARYNX, ENDO (04/23/16) LEFT HEART CARDIAC CATH (07/19/14) LT HEART ANGIOCARDIOGRAM (07/19/14) MEASURE CARDIAC SAMPL & PRESSURE, BILATERAL, PERC (07/08/17) MEASURE OF CARDIAC SAMPL & PRESSURE, L HEART, PERC APPROACH (05/20/16) PLAIN RADIOGRAPHY OF L INT MAMM GRAFT USING OTH CONTRAST (05/20/16) PLAIN RADIOGRAPHY OF LEFT HEART USING OTHER CONTRAST (05/20/16) PLAIN RADIOGRAPHY OF MULT COR A GRAFT USING OTH CONTRAST (07/08/17) PLAIN RADIOGRAPHY OF MULT COR ART USING OTH CONTRAST (07/08/17) PLAIN RADIOGRAPHY OF RIGHT AND LEFT HEART USING OTH CONTRAST (07/08/17) ULTRASONOGRAPHY OF RIGHT AND LEFT HEART, TRANSESOPHAGEAL (01/19/17) Family History: States: Unknown Family Hx - Social History Hx Tobacco Use: No Hx Alcohol Use: No Hx Substance Use: No - Immunization History Hx Tetanus Toxoid Vaccination: Yes Hx Influenza Vaccination: Yes Hx Pneumococcal Vaccination: Yes Review Of Systems Constitutional: Positive for: Weakness Cardiovascular: Negative for: Chest Pain Neurological: Positive for: Other (lightheaded ) Physical Exam - Physical Exam Appears: Non-toxic, No Acute Distress Skin: No Rash Head: Atraumatic, Normacephalic Eye(s): bilateral: PERRL, EOMI Neck: Supple Chest: No Tenderness Cardiovascular: Rhythm Regular, No Murmur Respiratory: No Rales, No Rhonchi, No Wheezing, Other (Clear to auscultation bilaterally. ) Gastrointestinal/Abdominal: No Tenderness, No Distention, Other (Normoactive bowel sounds.) Back: No CVA Tenderness Extremity: No Calf Tenderness, No Swelling Neurological/Psych: Oriented x3, Normal Speech, Normal Cognition ED Course And Treatment - Laboratory Results Result Diagrams: 02/10/19 13:47 02/10/19 13:47 ECG: Interpreted By Me, Viewed By Me ECG Rhythm: Sinus Rhythm (non specific intraventricular block, non speicific t wave changes ) ECG Interpretation: Abnormal O2 Sat by Pulse Oximetry: 96 (on RA) Pulse Ox Interpretation: Normal Medical Decision Making Medical Decision Making: Plan: Labs IV Fluids Orthostatics Patient felt better after being given fluids. Pending reevaluation. discussed with Dr Neel Lux 1645. will admit to his service 1755 pt feeling wellk, no acute distrss, alert and awake at baseline. Disposition Discussed With : Alison Lux Doctor Will See Patient In The: Hospital - Disposition Disposition: HOSPITALIZED Disposition Time: 16:45 Condition: STABLE - Clinical Impression Clinical Impression: Orthostatic hypotension - PA / ASSISTANT AUDITOR / Resident Statement MD/DO has examined the patient and agrees with the treatment plan. - Scribe Statement The provider has reviewed the documentation as recorded by the Theodore Parada All medical record entries made by the Scribe were at my direction and personally dictated by me. I have reviewed the chart and agree that the record accurately reflects my personal performance of the history, physical exam, medical decision making, and the department course for this patient. I have also personally directed, reviewed, and agree with the discharge instructions and disposition.
[2019-02-10 14:15] LABS: ALB/GLOB RATIO 1.7 (1.0-2.1); ALBUMIN 4.3 g/dL (3.5-5.0); ALT/SGPT 9 U/L (21-72); AST/SGOT 34 U/L (17-59); BLOOD UREA NITROGEN 53 mg/dL (9-20); CALCIUM 9.6 mg/dl (8.6-10.4); GFR NON-AFRICAN AMERICAN 55; LIPASE 356 U/L (23-300)
[2019-02-10 14:22] LABS: CK-MB 3.65 ng/mL (0.0-3.38)
[2019-02-10] MEDS: Sodium Chloride 0.9% 1,000 ML IV SCH (16:45)
--- NOTE | 2019-02-10 17:37 | RAD ---
Date of service: 02/10/2019 PROCEDURE: CHEST RADIOGRAPH, 1 VIEW HISTORY: admission COMPARISON: 02/02/2019. FINDINGS: LUNGS: Clear. PLEURA: No pneumothorax or pleural fluid seen. CARDIOVASCULAR: No aortic atherosclerotic calcification present. No radiographic findings to suggest acute or significant cardiovascular disease. Incidental Finding(s): Postoperative changes related to sternotomy. Cardiomegaly. Position/ configuration of pacemaker OSSEOUS STRUCTURES: No significant abnormalities. VISUALIZED UPPER ABDOMEN: Normal. OTHER FINDINGS: None. IMPRESSION: No active disease.No significant interval change compared to the prior examination(s).
[2019-02-10 18:44] LABS: VENOUS BLOOD GAS BASE EXCESS 1.6 mmol/L (0.0-2.0); VENOUS BLOOD GAS PCO2 56 mmHg (40-60); VENOUS BLOOD GAS PO2 22 mm/Hg (30-55); VENOUS BLOOD PH 7.32 (7.32-7.43)
--- NOTE | 2019-02-10 19:11 | CP.PCM.HP ---
Past Patient History - Infectious Disease Hx of Infectious Diseases: None - Past Medical History & Family History Past Medical History?: Yes - Past Social History Smoking Status: Former Smoker - CARDIAC Hx Cardia Arrhythmia: Yes Hx Congestive Heart Failure: Yes Hx Hypercholesterolemia: Yes Hx Hypertension: Yes Hx Pacemaker: Yes - PULMONARY Hx Asthma: Yes Hx Chronic Obstructive Pulmonary Disease (COPD): Yes - HEENT Hx HEENT Problems: No - RENAL Hx Chronic Kidney Disease: No - ENDOCRINE/METABOLIC Hx Endocrine Disorders: Yes Hx Diabetes Mellitus Type 2: Yes - INTEGUMENTARY Other/Comment: abdominal area with surgical scars - MUSCULOSKELETAL/RHEUMATOLOGICAL Hx Arthritis: Yes Hx Fractures: No - GASTROINTESTINAL Hx Gastritis: Yes - PSYCHIATRIC Hx Depression: Yes (denies) Hx Substance Use: No - SURGICAL HISTORY Hx Coronary Artery Bypass Graft: Yes (BENDER to LAD, SVG to OM1,OM2, SVG to Diag, SVG to PDA. AVR/MVR (bioprosth)) Hx Coronary Stent: Yes (x9) - ANESTHESIA Hx Anesthesia: Yes Hx Anesthesia Reactions: No Hx Malignant Hyperthermia: No Meds Allergies/Adverse Reactions: Allergies Allergy/AdvReac Type Severity Reaction Status Date / Time iodine Allergy Intermediate SHORTNESS Verified 02/10/19 12:32 OF BREATH shellfish derived Allergy Intermediate ANGIOEDEMA Verified 02/10/19 12:32 milk Allergy Mild SHORTNESS Verified 02/10/19 12:32 OF BREATH Physical Exam - Constitutional Appears: Well - Head Exam Head Exam: ATRAUMATIC, NORMAL INSPECTION, NORMOCEPHALIC - Eye Exam Eye Exam: EOMI, Normal appearance, PERRL Pupil Exam: NORMAL ACCOMODATION, PERRL - ENT Exam ENT Exam: Mucous Membranes Moist, Normal Exam - Neck Exam Neck exam: Positive for: Normal Inspection - Respiratory Exam Respiratory Exam: Decreased Breath Sounds - Cardiovascular Exam Cardiovascular Exam: REGULAR RHYTHM, +S1, +S2 - GI/Abdominal Exam GI & Abdominal Exam: Diminished Bowel Sounds, Soft - Rectal Exam Rectal Exam: Deferred - Neurological Exam Neurological exam: Oriented x3 Results - Vital Signs Recent Vital Signs: Last Vital Signs Temp 98.1 F 02/10/19 18:45 Pulse 60 02/10/19 18:45 Resp 18 02/10/19 18:45 BP 96/60 L 02/10/19 18:45 Pulse Ox 96 02/10/19 18:56 - Labs Result Diagrams: 02/10/19 13:47 02/10/19 13:47 Labs: Laboratory Results - last 24 hr 02/10/19 02/10/19 02/10/19 12:26 13:47 13:47 WBC 10.9 H RBC 5.20 Hgb 13.3 Hct 42.9 MCV 82.5 MCH 25.6 L MCHC 31.0 L RDW 16.4 H Plt Count 211 MPV 9.8 Neut % (Auto) 71.1 Lymph % (Auto) 13.7 L [place] % (Auto) 7.6 Eos % (Auto) 6.4 H Baso % (Auto) 1.2 Neut # (Auto) 7.7 H Lymph # (Auto) 1.5 [place] # (Auto) 0.8 Eos # (Auto) 0.7 Baso # (Auto) 0.1 pO2 VBG pH VBG pCO2 VBG HCO3 VBG Total CO2 VBG O2 Sat (Calc) VBG Base Excess VBG Potassium Glucose Lactate FiO2 Sodium 132 Potassium 5.0 Chloride 95 L Carbon Dioxide 29 Anion Gap 13 BUN 53 H Creatinine 1.3 Est GFR ( Amer) > 60 Est GFR (Non-Af Amer) 55 POC Glucose (mg/dL) 309 H Random Glucose 269 H D Calcium 9.6 Magnesium 1.8 Total Bilirubin 0.5 AST 34 ALT 9 L D Alkaline Phosphatase 65 Total Creatine Kinase 88 CK-MB (Mass) 3.65 H Troponin I 0.0170 Total Protein 6.9 Albumin 4.3 Globulin 2.5 Albumin/Globulin Ratio 1.7 Lipase 356 H Venous Blood Potassium 02/10/19 18:35 WBC RBC Hgb Hct MCV MCH MCHC RDW Plt Count MPV Neut % (Auto) Lymph % (Auto) [place] % (Auto) Eos % (Auto) Baso % (Auto) Neut # (Auto) Lymph # (Auto) [place] # (Auto) Eos # (Auto) Baso # (Auto) pO2 22 L VBG pH 7.32 VBG pCO2 56 VBG HCO3 24.4 VBG Total CO2 30.6 H VBG O2 Sat (Calc) 38.6 L VBG Base Excess 1.6 VBG Potassium 3.9 Glucose 185 H Lactate 1.4 FiO2 21.0 Sodium 136.0 Potassium Chloride 101.0 Carbon Dioxide Anion Gap BUN Creatinine Est GFR ( Amer) Est GFR (Non-Af Amer) POC Glucose (mg/dL) Random Glucose Calcium Magnesium Total Bilirubin AST ALT Alkaline Phosphatase Total Creatine Kinase CK-MB (Mass) Troponin I Total Protein Albumin Globulin Albumin/Globulin Ratio Lipase Venous Blood Potassium 3.9
--- NOTE | 2019-02-10 21:16 | CP.PCM.CON ---
History of Present Illness - History of Present Illness History of Present Illness: 68 year old male, with a PMHx of HTN ,CAD s/p CABG and stents and diabetes, who presents to the ED c/o feeling lightheaded and weak after taking his insulin today and noticed that he had low blood pressure. Patient states that he is new to insulin. He denies any CP and states that he did not fall. ICU consult requested for low BP.Patient received IV fluids in Er and current BP is 113/80mmHg patient states he has been urinating a lot PMH-Arthritis, Asthma, CAD, Cardia Arrhythmia, CHF, COPD, CVA (affecting right side of body), Diabetes, Gastritis, HTN, Hypercholesterolemia Surgical History: CABG (BENDER to LAD, SVG to OM1,OM2, SVG to Diag, SVG to PDA. AVR/MVR (bioprosth)), Coronary Stent (x9), Pacemaker Review of Systems - Constitutional Constitutional: absent: Anorexia, Fever, Frequent Falls - EENT Eyes: absent: Change in Vision Ears: absent: Ear Pain, Dizziness Nose/Mouth/Throat: absent: Nasal Congestion, Sore Throat - Cardiovascular Cardiovascular: absent: Chest Pain, Dyspnea - Respiratory Respiratory: absent: Cough, Chest Congestion - Gastrointestinal Gastrointestinal: absent: Abdominal Pain, Nausea, Vomiting - Genitourinary Genitourinary: absent: Dysuria - Musculoskeletal Musculoskeletal: absent: Neck Pain - Integumentary Integumentary: absent: Dry Skin, Sores - Neurological Neurological: absent: Dizziness, Headaches - Endocrine Endocrine: absent: Fatigue, Palpitations - Hematologic/Lymphatic Hematologic: absent: Easy Bleeding Past Patient History - Infectious Disease Hx of Infectious Diseases: None - Past Medical History & Family History Past Medical History?: Yes - Past Social History Smoking Status: Former Smoker - CARDIAC Hx Cardia Arrhythmia: Yes Hx Congestive Heart Failure: Yes Hx Hypercholesterolemia: Yes Hx Hypertension: Yes Hx Pacemaker: Yes - PULMONARY Hx Asthma: Yes Hx Chronic Obstructive Pulmonary Disease (COPD): Yes - HEENT Hx HEENT Problems: No - RENAL Hx Chronic Kidney Disease: No - ENDOCRINE/METABOLIC Hx Endocrine Disorders: Yes Hx Diabetes Mellitus Type 2: Yes - INTEGUMENTARY Other/Comment: abdominal area with surgical scars - MUSCULOSKELETAL/RHEUMATOLOGICAL Hx Arthritis: Yes Hx Fractures: No - GASTROINTESTINAL Hx Gastritis: Yes - PSYCHIATRIC Hx Depression: Yes (denies) Hx Substance Use: No - SURGICAL HISTORY Hx Coronary Artery Bypass Graft: Yes (BENDER to LAD, SVG to OM1,OM2, SVG to Diag, SVG to PDA. AVR/MVR (bioprosth)) Hx Coronary Stent: Yes (x9) - ANESTHESIA Hx Anesthesia: Yes Hx Anesthesia Reactions: No Hx Malignant Hyperthermia: No Meds Allergies/Adverse Reactions: Allergies Allergy/AdvReac Type Severity Reaction Status Date / Time iodine Allergy Intermediate SHORTNESS Verified 02/10/19 12:32 OF BREATH shellfish derived Allergy Intermediate ANGIOEDEMA Verified 02/10/19 12:32 milk Allergy Mild SHORTNESS Verified 02/10/19 12:32 OF BREATH - Medications Medications: Current Medications Sodium Chloride (Sodium Chloride 0.9%) 1,000 mls @ 100 mls/hr IV .Q10H [facility] Last Admin: 02/10/19 16:45 Dose: 100 mls/hr Physical Exam - Constitutional Appears: No Acute Distress - Head Exam Head Exam: absent: ATRAUMATIC, NORMAL INSPECTION, NORMOCEPHALIC - Eye Exam Eye Exam: EOMI, PERRL. absent: Scleral icterus - ENT Exam ENT Exam: absent: Normal Exam - Neck Exam Neck exam: Negative for: Normal Inspection - Respiratory Exam Respiratory Exam: Clear to Auscultation Bilateral - Cardiovascular Exam Cardiovascular Exam: REGULAR RHYTHM. absent: JVD - GI/Abdominal Exam GI & Abdominal Exam: Normal Bowel Sounds, Soft. absent: Tenderness - Extremities Exam Extremities exam: Positive for: normal inspection. Negative for: pedal edema - Neurological Exam Neurological exam: Alert, Oriented x3 - Psychiatric Exam Psychiatric exam: Normal Affect - Skin Skin Exam: Normal Color Results - Vital Signs Recent Vital Signs: Last Vital Signs Temp 98.3 F 02/10/19 20:56 Pulse 60 02/10/19 20:56 Resp 15 02/10/19 20:56 BP 113/80 02/10/19 20:56 Pulse Ox 97 02/10/19 20:56 - Labs Result Diagrams: 02/10/19 13:47 02/10/19 13:47 Labs: Laboratory Results - last 24 hr 02/10/19 02/10/19 02/10/19 12:26 13:47 13:47 WBC 10.9 H RBC 5.20 Hgb 13.3 Hct 42.9 MCV 82.5 MCH 25.6 L MCHC 31.0 L RDW 16.4 H Plt Count 211 MPV 9.8 Neut % (Auto) 71.1 Lymph % (Auto) 13.7 L [place] % (Auto) 7.6 Eos % (Auto) 6.4 H Baso % (Auto) 1.2 Neut # (Auto) 7.7 H Lymph # (Auto) 1.5 [place] # (Auto) 0.8 Eos # (Auto) 0.7 Baso # (Auto) 0.1 pO2 VBG pH VBG pCO2 VBG HCO3 VBG Total CO2 VBG O2 Sat (Calc) VBG Base Excess VBG Potassium Glucose Lactate FiO2 Sodium 132 Potassium 5.0 Chloride 95 L Carbon Dioxide 29 Anion Gap 13 BUN 53 H Creatinine 1.3 Est GFR ( Amer) > 60 Est GFR (Non-Af Amer) 55 POC Glucose (mg/dL) 309 H Random Glucose 269 H D Calcium 9.6 Magnesium 1.8 Total Bilirubin 0.5 AST 34 ALT 9 L D Alkaline Phosphatase 65 Total Creatine Kinase 88 CK-MB (Mass) 3.65 H Troponin I 0.0170 Total Protein 6.9 Albumin 4.3 Globulin 2.5 Albumin/Globulin Ratio 1.7 Lipase 356 H Venous Blood Potassium 02/10/19 18:35 WBC RBC Hgb Hct MCV MCH MCHC RDW Plt Count MPV Neut % (Auto) Lymph % (Auto) [place] % (Auto) Eos % (Auto) Baso % (Auto) Neut # (Auto) Lymph # (Auto) [place] # (Auto) Eos # (Auto) Baso # (Auto) pO2 22 L VBG pH 7.32 VBG pCO2 56 VBG HCO3 24.4 VBG Total CO2 30.6 H VBG O2 Sat (Calc) 38.6 L VBG Base Excess 1.6 VBG Potassium 3.9 Glucose 185 H Lactate 1.4 FiO2 21.0 Sodium 136.0 Potassium Chloride 101.0 Carbon Dioxide Anion Gap BUN Creatinine Est GFR ( Amer) Est GFR (Non-Af Amer) POC Glucose (mg/dL) Random Glucose Calcium Magnesium Total Bilirubin AST ALT Alkaline Phosphatase Total Creatine Kinase CK-MB (Mass) Troponin I Total Protein Albumin Globulin Albumin/Globulin Ratio Lipase Venous Blood Potassium 3.9 - EKG Data EKG Interpreted by: Myself Assessment & Plan - Assessment and Plan (Free Text) Assessment: 68 y/o male with HTN,CAD and DM presents with low BP received fluids in ER currently with BP in Normal range continue current treatment Please call ICU if patient's clinical status worsens.
[2019-02-11] MEDS: Sodium Chloride 0.9% 1,000 ML IV SCH ×3 (02:54→21:45)
[2019-02-11] MEDS: (Novolog) Insulin Aspart, Recombinant 100 u/ml 10 ml vial SC SCH ×2 (12:42→18:29)
--- NOTE | 2019-02-11 18:26 | CP.PCM.PN ---
Subjective - Date & Time of Evaluation Date of Evaluation: 02/11/19 - Subjective Subjective: Patient was seen and examined today No nausea No vomiting No fever No diarrhea No dizziness No shortness of breath Objective - Vital Signs/Intake and Output Vital Signs (last 24 hours): Temp Pulse Resp BP Pulse Ox 98 F 55 L 20 159/80 H 96 02/11/19 15:00 02/11/19 16:30 02/11/19 15:00 02/11/19 15:00 02/11/19 16:30 Intake and Output: 02/11/19 02/11/19 06:59 18:59 Intake Total 800 Balance 800 - Medications Medications: Current Medications Aspirin (Aspirin Chewable) 81 mg PO DAILY [facility] Last Admin: 02/11/19 10:37 Dose: 81 mg Carvedilol (Coreg) 6.25 mg PO BID [facility] Last Admin: 02/11/19 10:38 Dose: 6.25 mg Furosemide (Lasix) 40 mg PO BID [facility] Gabapentin (Neurontin) 600 mg PO TID [facility] Last Admin: 02/11/19 14:22 Dose: 600 mg Gemfibrozil (Lopid) 600 mg PO BID [facility] Last Admin: 02/11/19 10:41 Dose: 600 mg Glimepiride (Amaryl) 4 mg PO BIDAC [facility] Last Admin: 02/11/19 10:38 Dose: 4 mg Heparin Sodium (Porcine) (Heparin) 5,000 units SC Q12 [facility] Last Admin: 02/11/19 10:38 Dose: 5,000 units Sodium Chloride (Sodium Chloride 0.9%) 1,000 mls @ 100 mls/hr IV .Q10H [facility] Last Admin: 02/11/19 14:25 Dose: Not Given Insulin Aspart (Novolog) 0 unit SC ACHS [facility]; Protocol Last Admin: 02/11/19 12:42 Dose: 4 units Lisinopril (Zestril) 10 mg PO DAILY [facility] Last Admin: 02/11/19 10:38 Dose: 10 mg Metformin HCl (Glucophage) 1,000 mg PO BIDCC [facility] Last Admin: 02/11/19 10:37 Dose: 1,000 mg Midodrine (Proamatine) 2.5 mg PO TID [facility] Last Admin: 02/11/19 14:24 Dose: Not Given Rosuvastatin Calcium (Crestor) 10 mg PO HS [facility] Ticagrelor (Brilinta) 90 mg PO BID [facility] Last Admin: 02/11/19 10:41 Dose: 90 mg - Labs Labs: 02/10/19 13:47 02/10/19 13:47 - Constitutional Appears: Well - Head Exam Head Exam: ATRAUMATIC, NORMAL INSPECTION, NORMOCEPHALIC - Eye Exam Eye Exam: EOMI, Normal appearance, PERRL Pupil Exam: NORMAL ACCOMODATION, PERRL - ENT Exam ENT Exam: Mucous Membranes Moist, Normal Exam - Neck Exam Neck Exam: Full ROM, Normal Inspection. absent: Lymphadenopathy - Respiratory Exam Respiratory Exam: Decreased Breath Sounds - Cardiovascular Exam Cardiovascular Exam: REGULAR RHYTHM, +S1, +S2 - GI/Abdominal Exam GI & Abdominal Exam: Soft, Diminished Bowel Sounds - Rectal Exam Rectal Exam: Deferred - Neurological Exam Neurological Exam: Oriented x3 Assessment and Plan - Assessment and Plan (Free Text) Plan: amaryl chewable tablet brilinta coreg crestor glucophage heparin lasix lopid neurontin novolog proamatine sodium chloride 0.9% zestril medications reivewed labs reviewed vitals reviewed
[2019-02-12 04:25] VITALS: RESP 20
[2019-02-12] MEDS: (Novolog) Insulin Aspart, Recombinant 100 u/ml 10 ml vial SC SCH ×4 (08:11→21:44)
[2019-02-12] MEDS: Sodium Chloride 0.9% 1,000 ML IV SCH ×2 (12:59→17:59)
--- NOTE | 2019-02-12 19:53 | CP.PCM.PN ---
Subjective - Date & Time of Evaluation Date of Evaluation: 02/12/19 - Subjective Subjective: patient examined today patient denies nausea, vomiting, diarrhea, fever, dizziness, shortness of breath Objective - Vital Signs/Intake and Output Vital Signs (last 24 hours): Temp Pulse Resp BP Pulse Ox 97.9 F 63 20 138/94 H 96 02/12/19 15:00 02/12/19 16:00 02/12/19 15:00 02/12/19 17:51 02/12/19 16:00 - Medications Medications: Current Medications Aspirin (Aspirin Chewable) 81 mg PO DAILY [facility] Last Admin: 02/12/19 10:41 Dose: 81 mg Carvedilol (Coreg) 6.25 mg PO BID [facility] Last Admin: 02/12/19 17:51 Dose: 6.25 mg Furosemide (Lasix) 40 mg PO BID [facility] Last Admin: 02/12/19 17:51 Dose: 40 mg Gabapentin (Neurontin) 600 mg PO TID [facility] Last Admin: 02/12/19 17:51 Dose: 600 mg Gemfibrozil (Lopid) 600 mg PO BID [facility] Last Admin: 02/12/19 17:51 Dose: 600 mg Glimepiride (Amaryl) 4 mg PO BIDAC [facility] Last Admin: 02/12/19 16:51 Dose: 4 mg Heparin Sodium (Porcine) (Heparin) 5,000 units SC Q12 [facility] Last Admin: 02/12/19 10:41 Dose: 5,000 units Sodium Chloride (Sodium Chloride 0.9%) 1,000 mls @ 100 mls/hr IV .Q10H [facility] Last Admin: 02/12/19 17:59 Dose: 100 mls/hr Insulin Aspart (Novolog) 0 unit SC ACHS [facility]; Protocol Last Admin: 02/12/19 16:50 Dose: 4 units Lisinopril (Zestril) 10 mg PO DAILY [facility] Last Admin: 02/12/19 10:40 Dose: 10 mg Metformin HCl (Glucophage) 1,000 mg PO BIDCC [facility] Last Admin: 02/12/19 17:51 Dose: 1,000 mg Midodrine (Proamatine) 2.5 mg PO TID [facility] Last Admin: 02/12/19 18:05 Dose: Not Given Rosuvastatin Calcium (Crestor) 10 mg PO HS [facility] Last Admin: 02/11/19 21:44 Dose: 10 mg Ticagrelor (Brilinta) 90 mg PO BID [facility] Last Admin: 02/12/19 17:51 Dose: 90 mg - Labs Labs: 02/10/19 13:47 02/10/19 13:47 - Constitutional Appears: Well - Head Exam Head Exam: ATRAUMATIC, NORMAL INSPECTION, NORMOCEPHALIC - Eye Exam Eye Exam: EOMI, Normal appearance, PERRL Pupil Exam: NORMAL ACCOMODATION, PERRL - ENT Exam ENT Exam: Mucous Membranes Moist, Normal Exam - Neck Exam Neck Exam: Full ROM, Normal Inspection. absent: Lymphadenopathy - Respiratory Exam Respiratory Exam: Decreased Breath Sounds - Cardiovascular Exam Cardiovascular Exam: REGULAR RHYTHM, +S1, +S2 - GI/Abdominal Exam GI & Abdominal Exam: Soft, Diminished Bowel Sounds - Rectal Exam Rectal Exam: Deferred - Neurological Exam Neurological Exam: Oriented x3 Assessment and Plan - Assessment and Plan (Free Text) Plan: labs reviewed medications reviewed vitals reviewed
[2019-02-13] MEDS: (Novolog) Insulin Aspart, Recombinant 100 u/ml 10 ml vial SC SCH ×4 (07:30→21:48)
--- NOTE | 2019-02-13 15:02 | CP.PCM.PN ---
Subjective - Date & Time of Evaluation Date of Evaluation: 02/13/19 Objective - Vital Signs/Intake and Output Vital Signs (last 24 hours): Temp Pulse Resp BP Pulse Ox 98 F 52 L 20 128/62 98 02/13/19 08:27 02/13/19 08:27 02/13/19 08:27 02/13/19 11:30 02/13/19 08:27 Intake and Output: 02/13/19 02/13/19 06:59 18:59 Intake Total 800 Output Total 2750 Balance -1950 - Medications Medications: Current Medications Aspirin (Aspirin Chewable) 81 mg PO DAILY [facility] Last Admin: 02/13/19 11:30 Dose: 81 mg Carvedilol (Coreg) 6.25 mg PO BID [facility] Last Admin: 02/13/19 11:30 Dose: 6.25 mg Furosemide (Lasix) 40 mg PO BID [facility] Last Admin: 02/13/19 11:30 Dose: 40 mg Gabapentin (Neurontin) 600 mg PO TID [facility] Last Admin: 02/13/19 14:23 Dose: 600 mg Gemfibrozil (Lopid) 600 mg PO BID [facility] Last Admin: 02/13/19 11:29 Dose: 600 mg Glimepiride (Amaryl) 4 mg PO BIDAC [facility] Last Admin: 02/13/19 11:30 Dose: 4 mg Heparin Sodium (Porcine) (Heparin) 5,000 units SC Q12 [facility] Last Admin: 02/13/19 11:31 Dose: 5,000 units Sodium Chloride (Sodium Chloride 0.9%) 1,000 mls @ 100 mls/hr IV .Q10H [facility] Last Admin: 02/12/19 17:59 Dose: 100 mls/hr Insulin Aspart (Novolog) 0 unit SC ACHS [facility]; Protocol Last Admin: 02/13/19 07:30 Dose: Not Given Lisinopril (Zestril) 10 mg PO DAILY [facility] Last Admin: 02/13/19 11:30 Dose: 10 mg Metformin HCl (Glucophage) 1,000 mg PO BIDCC [facility] Last Admin: 02/13/19 11:28 Dose: 1,000 mg Midodrine (Proamatine) 2.5 mg PO TID [facility] Last Admin: 02/13/19 11:29 Dose: 2.5 mg Rosuvastatin Calcium (Crestor) 10 mg PO HS [facility] Last Admin: 02/12/19 21:25 Dose: 10 mg Ticagrelor (Brilinta) 90 mg PO BID [facility] Last Admin: 02/13/19 11:29 Dose: 90 mg - Labs Labs: 02/10/19 13:47 02/10/19 13:47 - Constitutional Appears: Well - Head Exam Head Exam: ATRAUMATIC, NORMAL INSPECTION, NORMOCEPHALIC - Eye Exam Eye Exam: EOMI, Normal appearance, PERRL Pupil Exam: NORMAL ACCOMODATION, PERRL - ENT Exam ENT Exam: Mucous Membranes Moist, Normal Exam - Neck Exam Neck Exam: Full ROM, Normal Inspection. absent: Lymphadenopathy - Respiratory Exam Respiratory Exam: Decreased Breath Sounds - Cardiovascular Exam Cardiovascular Exam: REGULAR RHYTHM, +S1, +S2 - GI/Abdominal Exam GI & Abdominal Exam: Soft, Diminished Bowel Sounds - Rectal Exam Rectal Exam: Deferred Assessment and Plan - Assessment and Plan (Free Text) Plan: labs reviewed vitals reviewed medications reviewed
[2019-02-14 01:09] VITALS: TEMP 98.1
[2019-02-14 08:12] VITALS: BP 118/77; PULSE 50; O2SAT 98
[2019-02-14] MEDS: (Novolog) Insulin Aspart, Recombinant 100 u/ml 10 ml vial SC SCH ×4 (08:51→17:57)
--- NOTE | 2019-02-14 16:52 | CP.PCM.PN ---
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 , denies any complaints, c/o did not get enough sleep night time , denies any dizziness, headache, sob, or chest pain vss - reviewed Objective - Vital Signs/Intake and Output Vital Signs (last 24 hours): Temp Pulse Resp BP Pulse Ox 98.1 F 50 L 20 118/77 98 02/14/19 07:12 02/14/19 07:12 02/14/19 07:12 02/14/19 10:34 02/14/19 07:12 Intake and Output: 02/14/19 02/14/19 06:59 18:59 Intake Total 1600 Output Total 700 Balance 900 - Medications Medications: Current Medications Aspirin (Aspirin Chewable) 81 mg PO DAILY [facility] Last Admin: 02/14/19 10:33 Dose: 81 mg Carvedilol (Coreg) 6.25 mg PO BID [facility] Last Admin: 02/14/19 10:33 Dose: 6.25 mg Furosemide (Lasix) 40 mg PO BID [facility] Last Admin: 02/14/19 10:34 Dose: 40 mg Gabapentin (Neurontin) 600 mg PO TID [facility] Last Admin: 02/14/19 14:33 Dose: 600 mg Gemfibrozil (Lopid) 600 mg PO BID [facility] Last Admin: 02/14/19 10:33 Dose: 600 mg Glimepiride (Amaryl) 4 mg PO BIDAC [facility] Last Admin: 02/14/19 08:00 Dose: 4 mg Insulin Aspart (Novolog) 0 unit SC ACHS [facility]; Protocol Last Admin: 02/14/19 12:55 Dose: 4 units Lisinopril (Zestril) 10 mg PO DAILY [facility] Last Admin: 02/14/19 10:33 Dose: 10 mg Metformin HCl (Glucophage) 1,000 mg PO BIDCC [facility] Last Admin: 02/14/19 08:51 Dose: 1,000 mg Midodrine (Proamatine) 2.5 mg PO TID [facility] Last Admin: 02/14/19 14:33 Dose: 2.5 mg Rosuvastatin Calcium (Crestor) 10 mg PO HS [facility] Last Admin: 02/13/19 21:47 Dose: 10 mg Ticagrelor (Brilinta) 90 mg PO BID [facility] Last Admin: 02/14/19 10:33 Dose: 90 mg - Labs Labs: 02/10/19 13:47 02/10/19 13:47 Assessment and Plan - Assessment and Plan (Free Text) Assessment: a/p 68 YR OLD male with pmhx of Asthma, CAD, Cardia Arrhythmia, CHF, COPD, CVA Depression, Diabetes, Gastritis, HTN, Hypercholesterolemia presented to the ED with low blood pressure at home Midodrine started and bp improved and bp in above 120 orthostatic BP done and stable seen by Dr. Tompkins today and cleared for discharge home today and resume all home medications and add midodrine 2.5 mg bid and f/u with Dr. Tompkins office in 3-5 days RX for midodrine given
--- NOTE | 2019-02-14 17:15 | PCM.HF ---
Heart Failure Core Measure - Heart Failure Ejection Fraction: 40 % or Greater SWATHI Inhibitor Prescribed: Yes Beta-Coretta Prescribed: Carvedilol Angiotensin II Receptor Coretta Prescribed: No Contraindication/Reason for not providing: on swathi AnticoagulationTherapy for Atrial Fibrillation/Atrialflutter: No Contraindication/Reason for not providing: no hx of a fib Aldosterone Antagonist Prescribed: No Contraindication/Reason for not providing: ef.45 Hydralazine Nitrate Prescribed: No Contraindication/Reason for not providing: ef.45 Implantable Cardioverter Defibrillator Therapy: No Contraindication/Reason for not providing: ef.45 Cardiac Resynchronization Therapy Prescribed: No Contraindication/Reason for not providing: pt nicole chao pacemake r - Follow up Will be discharged to: Home Follow Up Date (must be within 7 days from discharge): 02/19/19 Follow Up Time: 14:00
--- NOTE | 2019-02-15 19:35 | CARD ---
APPROVED REPORT Date of service: 02/10/2019 EKG Measurement Heart [id number] <Conclusion> Normal sinus rhythm Nonspecific intraventricular block Nonspecific T wave abnormality Abnormal ECG
--- NOTE | 2019-02-16 10:01 | CP.PCM.DIS ---
Provider - Provider Date of Admission: 02/10/19 16:45 Attending physician: Deidre Lopez MD Primary care physician: deidre lopez Consults: 02/10/19 19:12 Critical Care Consult Routine Comment: Consulting Provider: Segundo Alarcon Consulting Physician: Segundo Alarcon Reason for Consult: HYPOTENSION Hospital Course - Lab Results Lab Results: Most Recent Lab Values WBC 10.9 K/uL (4.8-10.8) H 02/10/19 13:47 RBC 5.20 Mil/uL (4.40-5.90) 02/10/19 13:47 Hgb 13.3 g/dL (12.0-18.0) 02/10/19 13:47 Hct 42.9 % (35.0-51.0) 02/10/19 13:47 MCV 82.5 fL (80.0-94.0) 02/10/19 13:47 MCH 25.6 pg (27.0-31.0) L 02/10/19 13:47 MCHC 31.0 g/dL (33.0-37.0) L 02/10/19 13:47 RDW 16.4 % (11.5-14.5) H 02/10/19 13:47 Plt Count 211 K/uL (130-400) 02/10/19 13:47 MPV 9.8 fL (7.2-11.7) 02/10/19 13:47 Neut % (Auto) 71.1 % (50.0-75.0) 02/10/19 13:47 Lymph % (Auto) 13.7 % (20.0-40.0) L 02/10/19 13:47 [place] % (Auto) 7.6 % (0.0-10.0) 02/10/19 13:47 Eos % (Auto) 6.4 % (0.0-4.0) H 02/10/19 13:47 Baso % (Auto) 1.2 % (0.0-2.0) 02/10/19 13:47 Neut # (Auto) 7.7 K/uL (1.8-7.0) H 02/10/19 13:47 Lymph # (Auto) 1.5 K/uL (1.0-4.3) 02/10/19 13:47 [place] # (Auto) 0.8 K/uL (0.0-0.8) 02/10/19 13:47 Eos # (Auto) 0.7 K/uL (0.0-0.7) 02/10/19 13:47 Baso # (Auto) 0.1 K/uL (0.0-0.2) 02/10/19 13:47 pO2 22 mm/Hg (30-55) L 02/10/19 18:35 VBG pH 7.32 (7.32-7.43) 02/10/19 18:35 VBG pCO2 56 mmHg (40-60) 02/10/19 18:35 VBG HCO3 24.4 mmol/L 02/10/19 18:35 VBG Total CO2 30.6 mmol/L (22-28) H 02/10/19 18:35 VBG O2 Sat (Calc) 38.6 % (40-65) L 02/10/19 18:35 VBG Base Excess 1.6 mmol/L (0.0-2.0) 02/10/19 18:35 VBG Potassium 3.9 mmol/L (3.6-5.2) 02/10/19 18:35 Sodium 136.0 mmol/l (132-148) 02/10/19 18:35 Chloride 101.0 mmol/L (98-107) 02/10/19 18:35 Glucose 185 mg/dl (75-110) H 02/10/19 18:35 Lactate 1.4 mmol/L (0.7-2.1) 02/10/19 18:35 FiO2 21.0 % 02/10/19 18:35 Sodium 132 mmol/L (132-148) 02/10/19 13:47 Potassium 5.0 mmol/L (3.6-5.2) 02/10/19 13:47 Chloride 95 mmol/L (98-107) L 02/10/19 13:47 Carbon Dioxide 29 mmol/L (22-30) 02/10/19 13:47 Anion Gap 13 (10-20) 02/10/19 13:47 BUN 53 mg/dL (9-20) H 02/10/19 13:47 Creatinine 1.3 mg/dL (0.8-1.5) 02/10/19 13:47 Est GFR ( Amer) > 60 02/10/19 13:47 Est GFR (Non-Af Amer) 55 02/10/19 13:47 POC Glucose (mg/dL) 239 mg/dL (65-110) H 02/14/19 11:33 Random Glucose 269 mg/dL (75-110) H D 02/10/19 13:47 Calcium 9.6 mg/dl (8.6-10.4) 02/10/19 13:47 Magnesium 1.8 mg/dL (1.6-2.3) 02/10/19 13:47 Total Bilirubin 0.5 mg/dL (0.2-1.3) 02/10/19 13:47 AST 34 U/L (17-59) 02/10/19 13:47 ALT 9 U/L (21-72) L D 02/10/19 13:47 Alkaline Phosphatase 65 U/L (38-126) 02/10/19 13:47 Total Creatine Kinase 88 U/L (55-170) 02/10/19 13:47 CK-MB (Mass) 3.65 ng/mL (0.0-3.38) H 02/10/19 13:47 Troponin I 0.0170 ng/mL (0.00-0.120) 02/10/19 13:47 Total Protein 6.9 g/dL (6.3-8.3) 02/10/19 13:47 Albumin 4.3 g/dL (3.5-5.0) 02/10/19 13:47 Globulin 2.5 gm/dL (2.2-3.9) 02/10/19 13:47 Albumin/Globulin Ratio 1.7 (1.0-2.1) 02/10/19 13:47 Lipase 356 U/L (23-300) H 02/10/19 13:47 Venous Blood Potassium 3.9 mmol/L (3.6-5.2) 02/10/19 18:35 Discharge Exam - Head Exam Head Exam: ATRAUMATIC, NORMAL INSPECTION, NORMOCEPHALIC Discharge Plan - Discharge Medications Prescriptions: Furosemide [Lasix] 40 mg PO BID #60 tab Midodrine [Proamatine] 2.5 mg PO BID #60 tab - Follow Up Plan Condition: STABLE Disposition: HOME/ ROUTINE Instructions: Heart Healthy Diet, Heart Failure, Adult (DC), Orthostatic Hypotension (DC), Furosemide, Midodrine Additional Instructions: Please f/u with Dr. Tompkins office in 1 3-5 days Please Resume home medications and addition of midodrine 5 mg bid Referrals: Alison Lopez MD [Staff Provider] -
--- NOTE | 2019-02-16 10:04 | CP.PCM.DIS ---
Provider - Provider Date of Admission: 02/10/19 16:45 Attending physician: Deidre Lux MD Primary care physician: deidre kessler Consults: 02/10/19 19:12 Critical Care Consult Routine Comment: Consulting Provider: Segundo Alarcon Consulting Physician: Segundo Alarcon Reason for Consult: HYPOTENSION Diagnosis - Discharge Diagnosis (1) Bronchitis Status: Acute (2) CHF (congestive heart failure) Status: Acute (3) Chest pain Status: Acute (4) Chronic congestive heart failure Status: Acute (5) Nasal congestion Status: Acute (6) Near syncope Status: Acute (7) TIA (transient ischemic attack) Status: Acute (8) CAD (coronary artery disease) of artery bypass graft Status: Chronic (9) Diabetes Status: Chronic (10) Hypertension Status: Chronic Hospital Course - Lab Results Lab Results: Most Recent Lab Values WBC 10.9 K/uL (4.8-10.8) H 02/10/19 13:47 RBC 5.20 Mil/uL (4.40-5.90) 02/10/19 13:47 Hgb 13.3 g/dL (12.0-18.0) 02/10/19 13:47 Hct 42.9 % (35.0-51.0) 02/10/19 13:47 MCV 82.5 fL (80.0-94.0) 02/10/19 13:47 MCH 25.6 pg (27.0-31.0) L 02/10/19 13:47 MCHC 31.0 g/dL (33.0-37.0) L 02/10/19 13:47 RDW 16.4 % (11.5-14.5) H 02/10/19 13:47 Plt Count 211 K/uL (130-400) 02/10/19 13:47 MPV 9.8 fL (7.2-11.7) 02/10/19 13:47 Neut % (Auto) 71.1 % (50.0-75.0) 02/10/19 13:47 Lymph % (Auto) 13.7 % (20.0-40.0) L 02/10/19 13:47 [place] % (Auto) 7.6 % (0.0-10.0) 02/10/19 13:47 Eos % (Auto) 6.4 % (0.0-4.0) H 02/10/19 13:47 Baso % (Auto) 1.2 % (0.0-2.0) 02/10/19 13:47 Neut # (Auto) 7.7 K/uL (1.8-7.0) H 02/10/19 13:47 Lymph # (Auto) 1.5 K/uL (1.0-4.3) 02/10/19 13:47 [place] # (Auto) 0.8 K/uL (0.0-0.8) 02/10/19 13:47 Eos # (Auto) 0.7 K/uL (0.0-0.7) 02/10/19 13:47 Baso # (Auto) 0.1 K/uL (0.0-0.2) 02/10/19 13:47 pO2 22 mm/Hg (30-55) L 02/10/19 18:35 VBG pH 7.32 (7.32-7.43) 02/10/19 18:35 VBG pCO2 56 mmHg (40-60) 02/10/19 18:35 VBG HCO3 24.4 mmol/L 02/10/19 18:35 VBG Total CO2 30.6 mmol/L (22-28) H 02/10/19 18:35 VBG O2 Sat (Calc) 38.6 % (40-65) L 02/10/19 18:35 VBG Base Excess 1.6 mmol/L (0.0-2.0) 02/10/19 18:35 VBG Potassium 3.9 mmol/L (3.6-5.2) 02/10/19 18:35 Sodium 136.0 mmol/l (132-148) 02/10/19 18:35 Chloride 101.0 mmol/L (98-107) 02/10/19 18:35 Glucose 185 mg/dl (75-110) H 02/10/19 18:35 Lactate 1.4 mmol/L (0.7-2.1) 02/10/19 18:35 FiO2 21.0 % 02/10/19 18:35 Sodium 132 mmol/L (132-148) 02/10/19 13:47 Potassium 5.0 mmol/L (3.6-5.2) 02/10/19 13:47 Chloride 95 mmol/L (98-107) L 02/10/19 13:47 Carbon Dioxide 29 mmol/L (22-30) 02/10/19 13:47 Anion Gap 13 (10-20) 02/10/19 13:47 BUN 53 mg/dL (9-20) H 02/10/19 13:47 Creatinine 1.3 mg/dL (0.8-1.5) 02/10/19 13:47 Est GFR ( Amer) > 60 02/10/19 13:47 Est GFR (Non-Af Amer) 55 02/10/19 13:47 POC Glucose (mg/dL) 239 mg/dL (65-110) H 02/14/19 11:33 Random Glucose 269 mg/dL (75-110) H D 02/10/19 13:47 Calcium 9.6 mg/dl (8.6-10.4) 02/10/19 13:47 Magnesium 1.8 mg/dL (1.6-2.3) 02/10/19 13:47 Total Bilirubin 0.5 mg/dL (0.2-1.3) 02/10/19 13:47 AST 34 U/L (17-59) 02/10/19 13:47 ALT 9 U/L (21-72) L D 02/10/19 13:47 Alkaline Phosphatase 65 U/L (38-126) 02/10/19 13:47 Total Creatine Kinase 88 U/L (55-170) 02/10/19 13:47 CK-MB (Mass) 3.65 ng/mL (0.0-3.38) H 02/10/19 13:47 Troponin I 0.0170 ng/mL (0.00-0.120) 02/10/19 13:47 Total Protein 6.9 g/dL (6.3-8.3) 02/10/19 13:47 Albumin 4.3 g/dL (3.5-5.0) 02/10/19 13:47 Globulin 2.5 gm/dL (2.2-3.9) 02/10/19 13:47 Albumin/Globulin Ratio 1.7 (1.0-2.1) 02/10/19 13:47 Lipase 356 U/L (23-300) H 02/10/19 13:47 Venous Blood Potassium 3.9 mmol/L (3.6-5.2) 02/10/19 18:35 - Hospital Course Hospital Course: Patient admitted with significant drop in the blood pressure and dizziness on arrival patient was hypotensive secondary to autonomic insufficiency and also with the very high range of fluctuating blood pressure eventually patient was discharged on midodrine with the reduced dose patient advised to take insulin regularly because patient's sugar was high his last hemoglobin A1c was 16 and dehydration can cause that discussed with the at length patient understood patient agreed to be discharged WBC is 10.9 Hemoglobin is 13 hematocrit is 42 platelets 20 211 sodium potassium is 5.0 sodium is 130 Discharge Exam - Head Exam Head Exam: ATRAUMATIC, NORMAL INSPECTION, NORMOCEPHALIC Discharge Plan - Discharge Medications Prescriptions: Furosemide [Lasix] 40 mg PO BID #60 tab Midodrine [Proamatine] 2.5 mg PO BID #60 tab - Follow Up Plan Condition: STABLE Disposition: HOME/ ROUTINE Instructions: Heart Healthy Diet, Heart Failure, Adult (DC), Orthostatic Hypotension (DC), Furosemide, Midodrine Additional Instructions: Please f/u with Dr. Tompkins office in 1 3-5 days Please Resume home medications and addition of midodrine 5 mg bid Referrals: Alison Lux MD [Staff Provider] -
== END 2019-02-14 18:23 | disposition home or self-care (01) ==
LOC: C.ER 12:20 → C.9E 16:45 → C.6T 19:15
PROVIDERS: ADMIT Internal Medicine Nephrology; ATTEND Internal Medicine Nephrology
DX: J44.9 Chronic obstructive pulmonary disease, unspecified (principal); I50.9 Heart failure, unspecified; R07.9 Chest pain, unspecified; R55 Syncope and collapse; G45.9 Transient cerebral ischemic attack, unspecified; I25.10 Atherosclerotic heart disease of native coronary artery without angina pectoris; E11.9 Type 2 diabetes mellitus without complications; I11.0 Hypertensive heart disease with heart failure; Z87.891 Personal history of nicotine dependence; Z86.73 Personal history of transient ischemic attack (TIA), and cerebral infarction without residual deficits; Z95.0 Presence of cardiac pacemaker; Z95.5 Presence of coronary angioplasty implant and graft; E78.00 Pure hypercholesterolemia, unspecified
CPT/HCPCS: 71045; 80053; 82803; 82948; 83690; 83735; 84484; 85025; 93005; 96360; 96372; 99285; G0378; J1644; J7030

== ENCOUNTER 2019-02-17 13:01 | Observation (INO) | payer MEDICARE, MEDICAID ==
[2019-02-17 13:01] VITALS: BMI 33.5
--- NOTE | 2019-02-17 14:32 | C.PDOC ---
Time Seen by Provider: 02/17/19 14:21 Chief Complaint (Nursing): High Blood Sugar Past Medical History Vital Signs: Last Vital Signs Temp 97 F L 02/17/19 13:40 Pulse 61 02/17/19 13:40 Resp 18 02/17/19 13:40 BP 108/73 02/17/19 13:40 Pulse Ox 98 02/17/19 13:40 - Medical History PMH: Arthritis, Asthma, CAD, Cardia Arrhythmia, CHF, COPD, CVA (affecting right side of body), Depression (denies), Diabetes, Gastritis, HTN, Hypercholesterolemia Denies: Fractures, Chronic Kidney Disease Surgical History: CABG (BENDER to LAD, SVG to OM1,OM2, SVG to Diag, SVG to PDA. AVR/MVR (bioprosth)), Coronary Stent (x9), Pacemaker - [facility] Procedures CORONAR ARTERIOGR-2 CATH (07/19/14) DILATION OF CORONARY ARTERY, ONE SITE, PERCUTANEOUS APPROACH (05/20/16) INSERTION OF INFUSION DEV INTO SUP VENA CAVA, PERC APPROACH (01/19/17) INSPECTION OF LARYNX, ENDO (04/23/16) LEFT HEART CARDIAC CATH (07/19/14) LT HEART ANGIOCARDIOGRAM (07/19/14) MEASURE CARDIAC SAMPL & PRESSURE, BILATERAL, PERC (07/08/17) MEASURE OF CARDIAC SAMPL & PRESSURE, L HEART, PERC APPROACH (05/20/16) PLAIN RADIOGRAPHY OF L INT MAMM GRAFT USING OTH CONTRAST (05/20/16) PLAIN RADIOGRAPHY OF LEFT HEART USING OTHER CONTRAST (05/20/16) PLAIN RADIOGRAPHY OF MULT COR A GRAFT USING OTH CONTRAST (07/08/17) PLAIN RADIOGRAPHY OF MULT COR ART USING OTH CONTRAST (07/08/17) PLAIN RADIOGRAPHY OF RIGHT AND LEFT HEART USING OTH CONTRAST (07/08/17) ULTRASONOGRAPHY OF RIGHT AND LEFT HEART, TRANSESOPHAGEAL (01/19/17) Family History: States: Unknown Family Hx - Social History Hx Tobacco Use: No Hx Alcohol Use: No Hx Substance Use: No - Immunization History Hx Tetanus Toxoid Vaccination: Yes Hx Influenza Vaccination: Yes Hx Pneumococcal Vaccination: Yes ED Course And Treatment O2 Sat by Pulse Oximetry: 98 Disposition - Disposition
--- NOTE | 2019-02-17 14:43 | C.PDOC ---
History Of Present Illness POOR HISTORIAN "I WAS JUST DISCHARGED AND i HAD TO TAKE CARE OF MY AND NOW I'M TIRED". DC 02/10,,14. ?COMPLIANCE W MEDS PS HAS MEDS AND NEEDLES "I COULDNT FIND IT BUT NOW I DID". PS HAS NOT EATEN BUT DENIES ABD PAIN, NV, FEVER. RESIDUAL R SIDED WEAKNESS FROM PRIOR CVA. PMH-Arthritis, Asthma, CAD, Cardia Arrhythmia, CHF, COPD, CVA (affecting right side of body), Diabetes, Gastritis, HTN, Hypercholesterolemia Surgical History: CABG (BENDER to LAD, SVG to OM1,OM2, SVG to Diag, SVG to PDA. AVR/MVR (bioprosth)), Coronary Stent (x9), Pacemaker EXAM NAD GAIT WNL WO ASSISTANCE NARD CV RRR NEURO NO FOCAL DEF REMAINDER NEG MDM MULT PRIOR ADMISSION FOR VARIOUS COMPLAINTS. 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 Time Seen by Provider: 02/17/19 14:21 Chief Complaint (Nursing): High Blood Sugar History Per: Patient History/Exam Limitations: other (pt is poor historian) Past Medical History Reviewed: Historical Data, Nursing Documentation, Vital Signs Vital Signs: Last Vital Signs Temp 97 F L 02/17/19 13:40 Pulse 61 02/17/19 13:40 Resp 18 02/17/19 13:40 BP 108/73 02/17/19 13:40 Pulse Ox 98 02/17/19 13:40 - Medical History PMH: Arthritis, Asthma, CAD, Cardia Arrhythmia, CHF, COPD, CVA (affecting right side of body), Depression (denies), Diabetes, Gastritis, HTN, Hypercholesterolemia Denies: Fractures, Chronic Kidney Disease Surgical History: CABG (BENDER to LAD, SVG to OM1,OM2, SVG to Diag, SVG to PDA. AVR/MVR (bioprosth)), Coronary Stent (x9), Pacemaker - [facility] Procedures CORONAR ARTERIOGR-2 CATH (07/19/14) DILATION OF CORONARY ARTERY, ONE SITE, PERCUTANEOUS APPROACH (05/20/16) INSERTION OF INFUSION DEV INTO SUP VENA CAVA, PERC APPROACH (01/19/17) INSPECTION OF LARYNX, ENDO (04/23/16) LEFT HEART CARDIAC CATH (07/19/14) LT HEART ANGIOCARDIOGRAM (07/19/14) MEASURE CARDIAC SAMPL & PRESSURE, BILATERAL, PERC (07/08/17) MEASURE OF CARDIAC SAMPL & PRESSURE, L HEART, PERC APPROACH (05/20/16) PLAIN RADIOGRAPHY OF L INT MAMM GRAFT USING OTH CONTRAST (05/20/16) PLAIN RADIOGRAPHY OF LEFT HEART USING OTHER CONTRAST (05/20/16) PLAIN RADIOGRAPHY OF MULT COR A GRAFT USING OTH CONTRAST (07/08/17) PLAIN RADIOGRAPHY OF MULT COR ART USING OTH CONTRAST (07/08/17) PLAIN RADIOGRAPHY OF RIGHT AND LEFT HEART USING OTH CONTRAST (07/08/17) ULTRASONOGRAPHY OF RIGHT AND LEFT HEART, TRANSESOPHAGEAL (01/19/17) Family History: States: No Known Family Hx - Social History Hx Tobacco Use: No Hx Alcohol Use: No Hx Substance Use: No - Immunization History Hx Tetanus Toxoid Vaccination: Yes Hx Influenza Vaccination: Yes Hx Pneumococcal Vaccination: Yes Review Of Systems Except As Marked, All Systems Reviewed And Found Negative. Constitutional: Negative for: Fever, Chills Gastrointestinal: Negative for: Nausea, Vomiting Physical Exam - Physical Exam Appears: No Acute Distress Skin: Normal Color, Warm, Dry Head: Atraumatic, Normacephalic Eye(s): bilateral: Normal Inspection Neck: Supple Chest: Symmetrical Cardiovascular: Rhythm Regular (RRR) Respiratory: Normal Breath Sounds, No Rales, No Rhonchi, No Wheezing, Other (NARD) Gastrointestinal/Abdominal: Normal Exam, Soft, No Tenderness, No Guarding, No Re bound Neurological/Psych: Other (no focal deficits) Gait: Steady (WNL with no assistance) ED Course And Treatment - Laboratory Results Result Diagrams: 02/17/19 15:09 02/17/19 15:09 O2 Sat by Pulse Oximetry: 98 (RA) Pulse Ox Interpretation: Normal Progress - Re-Evaluation Re-evaluation Note: 02/17/19 15:12 D/W DR Crystal PAVON STATES RECENTLY SAW PMD IN OFFICE AND HAD EXTENSIVE DM TRAINING. WILL ADMIT - Data Reviewed Data Reviewed: Lab, Old records Medical Decision Making Medical Decision Making: MULT PRIOR ADMISSION FOR VARIOUS COMPLAINTS. 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 I have reviewed the chart and agree that the record accurately reflects my personal performance of the history, physical exam, medical decision making, and the department course for this patient. I have also personally directed, reviewed, and agree with the discharge instructions and disposition.
[2019-02-17 15:20] LABS: BASO # 0.1 K/uL (0.0-0.2); EOS # 0.6 K/uL (0.0-0.7); EOS % 6.1 % (0.0-4.0); LYMPH % 9.8 % (20.0-40.0); MEAN CELL VOLUME 81.7 fL (80.0-94.0); MEAN CORPUSCULAR HEMOGLOBIN 26.1 pg (27.0-31.0); MEAN PLATELET VOLUME 9.3 fL (7.2-11.7); MONO # 0.8 K/uL (0.0-0.8); MONO % 7.3 % (0.0-10.0); NEUT # 7.8 K/uL (1.8-7.0); NEUT % 75.8 % (50.0-75.0); PLATELET COUNT 174 K/uL (130-400); RBC 4.96 Mil/uL (4.40-5.90); RED CELL DISTRIBUTION WIDTH 16.5 % (11.5-14.5); WHITE BLOOD COUNT 10.3 K/uL (4.8-10.8)
[2019-02-17 15:34] LABS: BLOOD UREA NITROGEN 38 mg/dL (9-20); GFR NON-AFRICAN AMERICAN 55
[2019-02-17 15:35] LABS: CALCIUM 9.8 mg/dl (8.6-10.4)
[2019-02-17 15:46] LABS: BANDS 1 % (0-2); EOSINOPHIL 7 % (0-4); LYMPHOCYTE 8 % (20-40); MONOCYTE 8 % (0-10); NEUTROPHIL 74 % (50-75); PLATELET ESTIMATE NORMAL (NORMAL); REACTIVE LYMPHOCYTES 2 % (0-0); TOTAL CELLS COUNTED 100
[2019-02-17 15:47] LABS: ANISOCYTOSIS SLIGHT; LARGE PLATELETS PRESENT
[2019-02-17 16:14] LABS: SQUAMOUS EPITHIAL < 1 /hpf (0-5)
[2019-02-17 16:32] LABS: URINE CLARITY Clear (Clear); URINE COLOR YELLOW (YELLOW); URINE GLUCOSE (UA) NEGATIVE (Normal)
[2019-02-17 16:33] LABS: PH,URINE 5.5 (5.0-8.0); URINE BILIRUBIN NEGATIVE (NEGATIVE); URINE BLOOD NEGATIVE (NEGATIVE); URINE PROTEIN NEGATIVE (NEGATIVE); URINE UROBILINOGEN 0.2 mg/dL (0.2-1.0)
[2019-02-17 16:34] LABS: URINE LEUKOCYTE ESTERASE NEGATIVE Leu/uL (Negative)
--- NOTE | 2019-02-17 18:53 | CP.PCM.HP ---
Past Patient History - Infectious Disease Hx of Infectious Diseases: None - Past Medical History & Family History Past Medical History?: Yes - Past Social History Smoking Status: Former Smoker - CARDIAC Hx Cardia Arrhythmia: Yes Hx Congestive Heart Failure: Yes Hx Hypercholesterolemia: Yes Hx Hypertension: Yes Hx Pacemaker: Yes - PULMONARY Hx Asthma: Yes Hx Chronic Obstructive Pulmonary Disease (COPD): Yes - HEENT Hx HEENT Problems: No - RENAL Hx Chronic Kidney Disease: No - ENDOCRINE/METABOLIC Hx Diabetes Mellitus Type 2: Yes - INTEGUMENTARY Hx Dermatological Problems: No Other/Comment: abdominal area with surgical scars - MUSCULOSKELETAL/RHEUMATOLOGICAL Hx Arthritis: Yes Hx Fractures: No - GASTROINTESTINAL Hx Gastritis: Yes - PSYCHIATRIC Hx Depression: Yes (denies) Hx Substance Use: No - SURGICAL HISTORY Hx Coronary Artery Bypass Graft: Yes (BENDER to LAD, SVG to OM1,OM2, SVG to Diag, SVG to PDA. AVR/MVR (bioprosth)) Hx Coronary Stent: Yes (x9) - ANESTHESIA Hx Anesthesia: Yes Hx Anesthesia Reactions: No Hx Malignant Hyperthermia: No Meds Allergies/Adverse Reactions: Allergies Allergy/AdvReac Type Severity Reaction Status Date / Time iodine Allergy Intermediate SHORTNESS Verified 02/10/19 12:32 OF BREATH shellfish derived Allergy Intermediate ANGIOEDEMA Verified 02/10/19 12:32 milk Allergy Mild SHORTNESS Verified 02/10/19 12:32 OF BREATH Physical Exam - Constitutional Appears: Well - Head Exam Head Exam: ATRAUMATIC, NORMAL INSPECTION, NORMOCEPHALIC - Eye Exam Eye Exam: EOMI, Normal appearance, PERRL Pupil Exam: NORMAL ACCOMODATION, PERRL - ENT Exam ENT Exam: Mucous Membranes Moist, Normal Exam - Neck Exam Neck exam: Positive for: Normal Inspection - Respiratory Exam Respiratory Exam: Decreased Breath Sounds - Cardiovascular Exam Cardiovascular Exam: REGULAR RHYTHM, +S1, +S2 - GI/Abdominal Exam GI & Abdominal Exam: Diminished Bowel Sounds, Soft - Rectal Exam Rectal Exam: Deferred - Neurological Exam Neurological exam: Oriented x3 Results - Vital Signs Recent Vital Signs: Last Vital Signs Temp 97.8 F 02/17/19 16:25 Pulse 68 02/17/19 16:25 Resp 18 02/17/19 16:25 BP 110/65 02/17/19 16:25 Pulse Ox 100 02/17/19 16:25 - Labs Result Diagrams: 02/17/19 15:09 02/18/19 06:17 Labs: Laboratory Results - last 24 hr 02/17/19 02/17/19 02/17/19 13:47 15:09 15:09 WBC 10.3 RBC 4.96 Hgb 13.0 Hct 40.5 MCV 81.7 MCH 26.1 L MCHC 32.0 L RDW 16.5 H Plt Count 174 MPV 9.3 Neut % (Auto) 75.8 H Lymph % (Auto) 9.8 L [place] % (Auto) 7.3 Eos % (Auto) 6.1 H Baso % (Auto) 1.0 Neut # (Auto) 7.8 H Lymph # (Auto) 1.0 [place] # (Auto) 0.8 Eos # (Auto) 0.6 Baso # (Auto) 0.1 Neutrophils % (Manual) 74 Band Neutrophils % 1 Lymphocytes % (Manual) 8 L Reactive Lymphs % 2 H Monocytes % (Manual) 8 Eosinophils % (Manual) 7 H Platelet Estimate Normal Large Platelets Present Anisocytosis (manual) Slight Sodium 137 Potassium 4.2 Chloride 99 Carbon Dioxide 27 Anion Gap 14 BUN 38 H Creatinine 1.3 Est GFR ( Amer) > 60 Est GFR (Non-Af Amer) 55 POC Glucose (mg/dL) 238 H Random Glucose 215 H D Calcium 9.8 Urine Color Urine Clarity Urine pH Ur Specific [place] Urine Protein Urine Glucose (UA) Urine Ketones Urine Blood Urine Nitrate Urine Bilirubin Urine Urobilinogen Ur Leukocyte Esterase Urine RBC (Auto) Ur Squamous Epith Cells 02/17/19 15:59 WBC RBC Hgb Hct MCV MCH MCHC RDW Plt Count MPV Neut % (Auto) Lymph % (Auto) [place] % (Auto) Eos % (Auto) Baso % (Auto) Neut # (Auto) Lymph # (Auto) [place] # (Auto) Eos # (Auto) Baso # (Auto) Neutrophils % (Manual) Band Neutrophils % Lymphocytes % (Manual) Reactive Lymphs % Monocytes % (Manual) Eosinophils % (Manual) Platelet Estimate Large Platelets Anisocytosis (manual) Sodium Potassium Chloride Carbon Dioxide Anion Gap BUN Creatinine Est GFR ( Amer) Est GFR (Non-Af Amer) POC Glucose (mg/dL) Random Glucose Calcium Urine Color Yellow Urine Clarity Clear Urine pH 5.5 Ur Specific [place] 1.015 Urine Protein Negative Urine Glucose (UA) Negative Urine Ketones Negative Urine Blood Negative Urine Nitrate Negative Urine Bilirubin Negative Urine Urobilinogen 0.2 Ur Leukocyte Esterase Negative Urine RBC (Auto) 1 Ur Squamous Epith Cells < 1 Assessment & Plan (1) Failure to thrive Status: Acute (2) Uncontrolled diabetes mellitus Status: Acute (3) Acute ST elevation myocardial infarction (STEMI) Status: Acute (4) Acute encephalopathy Status: Acute Priority: High (5) Acute posterior epistaxis Status: Acute (6) Adjustment disorder Status: Acute (7) CHF (congestive heart failure) Status: Acute (8) Chest pain Status: Acute (9) Congestive heart failure Status: Acute (10) Dyspnea Status: Acute (11) Dyspnea Status: Acute - Assessment and Plan (Free Text) Plan: WBC 10.3 hemoglobin hematocrit 13 and 40 Potassium is 3.9 Creatinine is 1.5 patient is back to the hospital as he can find into the needle feeling somewhat dizzy eventually patient is hospitalized Amaryl 4 mg twice daily aspirin and Brilinta Coreg Rosuvastatin Lantus 34 units Lasix Lovenox Possible subacute versus home tomorrow Discussed with the patient's compliance encouraged at length also spoke to the patient when came to my office at length last week
[2019-02-17] MEDS ORDERED: (Novolog) Insulin Aspart, Recombinant 100 u/ml 10 ml vial SC SCH (22:00)
[2019-02-17] MEDS ORDERED: (Lantus) Insulin Glargine, Recombinant SC SCH (22:00)
[2019-02-17 23:19] VITALS: RESP 20
[2019-02-18] MEDS ORDERED: (Novolog) Insulin Aspart, Recombinant 100 u/ml 10 ml vial SC SCH ×2 (07:30)
[2019-02-18 07:35] LABS: ALB/GLOB RATIO 1.5 (1.0-2.1); ALBUMIN 4.6 g/dL (3.5-5.0); CALCIUM 9.5 mg/dl (8.6-10.4)
--- NOTE | 2019-02-18 07:52 | CON ---
DATE: 02/18/2019 ENDOCRINOLOGY CONSULT LOCATION: Room 368. HISTORY OF PRESENT ILLNESS: This is a 68-year-old male with known history of type 2 insulin requiring diabetes presenting here with marked hyperglycemic accelerations and generalized body weakness with supervening dizziness and lightheadedness and is now being referred for diabetic evaluation and management. PAST MEDICAL HISTORY: As mentioned above history of type 2 insulin requiring diabetes, on a combination of NovoLog given as 14 units t.i.d. before meals with Lantus taken as 30 units subcutaneously at bedtime daily as given, history of hypertension and dyslipidemia, history of coronary artery disease and previous coronary artery bypass graft surgery with subsequent coronary stent placements, history of peripheral arterial disease and vasculopathy. She also has a previous CVA with residual right-sided weakness, history of diabetic retinopathy, polyneuropathy, and nephropathy with underlying chronic kidney disease, history of cardiac tachyarrhythmias with previous admissions for congestive heart failure, history of chronic obstructive lung disease, also history of chronic gastritis. FAMILY HISTORY: Positive for diabetes and hypertension. SOCIAL HISTORY: The patient has supportive family. No more substance use. REVIEW OF SYSTEMS: As mentioned above, admits to generalized body weakness with recent bouts of dizziness and lightheadedness, worse on the day of admission. Also admits to precordial chest pain with progressive shortness of breath, especially on exertion. His oral intake has been variable with nausea, dyspepsia, and recent marked polyuria, nocturia, and polydipsia. PHYSICAL EXAMINATION: GENERAL: Average-built male, in no apparent distress. VITAL SIGNS: Blood pressure of 140/80, pulse of 70 beats per minute and regular, temperature 98, respirations 20. Height is 5 feet 6 inches. Weight is 230 pounds. HEENT: Head normocephalic. Eyes anicteric with pink conjunctivae. Funduscopy not possible at this time. Ears, nose, and throat, otherwise, normal. NECK: Supple. Thyroid gland is normal in size. No carotid bruits or any cervical adenopathy. CARDIOPULMONARY: Some adynamic precordium. S1 and S2, rapid and regular. LUNGS: Clear to auscultation. ABDOMEN: Flat, soft with positive bowel sounds. EXTREMITIES: No peripheral edema. Pulses are +2 bilaterally. LABORATORY DATA: Chemistries; BUN of 38, sodium 137, potassium 4.2, chloride 99, CO2 of 27, glucose 215, and creatinine 1.3. ASSESSMENT: This patient is a 68-year-old male with uncontrolled and decompensated type 2 insulin requiring diabetes, presenting here with marked hyperglycemic accelerations with concomitant suboptimal metabolic control with diabetic condition with supervening dizziness and lightheadedness, and generalized body weakness as noted. He also has diabetic microvascular complications of retinopathy, polyneuropathy, and nephropathy with underlying chronic kidney disease. 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 PLAN OF MANAGEMENT: We will modify his current insulin dose regimen to a more physiologic basal and bolus insulin drug combination, and we will also initiate basal insulin given at higher dose of Lantus at 34 units subcu at bedtime daily as given. We will also add NovoLog given as 12 units t.i.d. before meals to start today as ordered. We will obtain serial chemistries and supplement accordingly as needed. We will also obtain a hemoglobin A1c to confirm his prior glycemic control and baseline thyroid function studies will be ordered. We will follow and advised accordingly. Selina Marie MD
[2019-02-18] MEDS: (Novolog) Insulin Aspart, Recombinant 100 u/ml 10 ml vial SC SCH ×7 (08:30→21:27)
[2019-02-18] MEDS: Enoxaparin 40 mg Syringe SC SCH (10:53)
--- NOTE | 2019-02-18 18:18 | CP.PCM.PN ---
Subjective - Date & Time of Evaluation Date of Evaluation: 02/18/19 Time of Evaluation: 07:35 - Subjective Subjective: patient seen and examined no nausea no vomitng no diarrhea no shortness of breath no fever Objective - Vital Signs/Intake and Output Vital Signs (last 24 hours): Temp Pulse Resp BP Pulse Ox 97.8 F 55 L 20 127/80 97 02/18/19 16:06 02/18/19 16:06 02/18/19 16:06 02/18/19 17:22 02/18/19 16:06 Intake and Output: 02/18/19 02/18/19 06:59 18:59 Intake Total 480 Balance 480 - Medications Medications: Current Medications Aspirin (Ecotrin) 81 mg PO DAILY [facility] Last Admin: 02/18/19 10:52 Dose: 81 mg Carvedilol (Coreg) 6.25 mg PO BID [facility] Last Admin: 02/18/19 17:21 Dose: 6.25 mg Enoxaparin Sodium (Lovenox) 40 mg SC DAILY [facility] Last Admin: 02/18/19 10:53 Dose: 40 mg Furosemide (Lasix) 40 mg PO BID [facility] Last Admin: 02/18/19 17:22 Dose: 40 mg Gabapentin (Neurontin) 600 mg PO TID [facility] Last Admin: 02/18/19 17:22 Dose: 600 mg Gemfibrozil (Lopid) 600 mg PO BID [facility] Last Admin: 02/18/19 17:22 Dose: 600 mg Glimepiride (Amaryl) 4 mg PO BID [facility] Last Admin: 02/18/19 17:22 Dose: 4 mg Insulin Aspart (Novolog) 12 unit SC AC [facility] Last Admin: 02/18/19 17:23 Dose: 12 units Insulin Aspart (Novolog) 0 unit SC ACHS [facility] Last Admin: 02/18/19 16:47 Dose: Not Given Insulin Glargine (Lantus) 34 unit SC HS [facility] Lisinopril (Zestril) 10 mg PO DAILY [facility] Last Admin: 02/18/19 10:53 Dose: 10 mg Midodrine (Proamatine) 2.5 mg PO BID [facility] Last Admin: 02/18/19 17:22 Dose: 2.5 mg Rosuvastatin Calcium (Crestor) 10 mg PO DAILY [facility] Last Admin: 02/18/19 10:53 Dose: 10 mg Ticagrelor (Brilinta) 90 mg PO BID [facility] Last Admin: 02/18/19 17:22 Dose: 90 mg - Labs Labs: 02/17/19 15:09 02/18/19 06:17 - Constitutional Appears: Well - Head Exam Head Exam: ATRAUMATIC, NORMAL INSPECTION, NORMOCEPHALIC - Eye Exam Eye Exam: EOMI, Normal appearance, PERRL Pupil Exam: NORMAL ACCOMODATION, PERRL - ENT Exam ENT Exam: Mucous Membranes Moist, Normal Exam - Neck Exam Neck Exam: Full ROM, Normal Inspection. absent: Lymphadenopathy - Respiratory Exam Respiratory Exam: Decreased Breath Sounds - Cardiovascular Exam Cardiovascular Exam: REGULAR RHYTHM, +S1, +S2 - GI/Abdominal Exam GI & Abdominal Exam: Soft, Diminished Bowel Sounds - Rectal Exam Rectal Exam: Deferred - Neurological Exam Neurological Exam: Oriented x3 Assessment and Plan (1) Failure to thrive Status: Acute (2) Uncontrolled diabetes mellitus Status: Acute (3) Acute ST elevation myocardial infarction (STEMI) Status: Acute (4) Acute encephalopathy Status: Acute (5) Acute posterior epistaxis Status: Acute (6) Adjustment disorder Status: Acute (7) CHF (congestive heart failure) Status: Acute (8) Chest pain Status: Acute (9) Congestive heart failure Status: Acute (10) Dyspnea Status: Acute (11) Dyspnea Status: Acute - Assessment and Plan (Free Text) Plan: patients medications reiviewed amaryl brilinta coreg crestor ecotrin lantus lasix lopid lovenox neurontin novolog proamathine zestril vitals and labs reviewed today
[2019-02-18] MEDS ORDERED: (Lantus) Insulin Glargine, Recombinant SC SCH (22:00)
--- NOTE | 2019-02-19 03:33 | PN ---
DATE: 02/18/2019 ENDOCRINOLOGY FOLLOWUP NOTE LOCATION: Room 368. SUBJECTIVE: This is a 68-year-old male with recent uncontrolled type 2 insulin-requiring diabetes, presenting here with marked hyperglycemic accelerations, dizziness, and lightheadedness, and is now being followed closely for metabolic management. His glycemic levels are fluctuating but improved, and the glucose levels today have ranged from 192 to 214 mg/dL. It was 259 at bedtime last night. LABORATORY DATA: His chemistry showed a BUN of 39, sodium 140, potassium 3.9, chloride of 100, CO2 of 26, glucose 199, and creatinine 1.5. His hemoglobin A1c is 15.5%. It is clearly elevated and indicative of suboptimal metabolic control of his diabetic condition even prior to this admission. ASSESSMENT: This is a 68-year-old male with uncontrolled and decompensated type 2 insulin-requiring diabetes, presenting here with marked hyperglycemic accelerations and concomitant generalized body weakness with episodic bouts of dizziness and lightheadedness with biochemical evidence of dehydration and prerenal azotemia as noted thereof. PLAN OF MANAGEMENT: We will modify his current basal and bolus insulin regimen and increase the Humalog to 12 units t.i.d. before meals to start today as ordered. We will also titrate his basal insulin with Lantus to be given as 24 units subcutaneous at bedtime daily to start tonight. We will increase his Lantus to 34 units subcutaneous at bedtime daily to start tonight as ordered. We will also continue the low-dose correction scale using NovoLog insulin as given. We will obtain serial chemistries and supplement accordingly as needed. We will follow. Selina Marie MD
[2019-02-19 07:56] LABS: ALB/GLOB RATIO 1.5 (1.0-2.1); ALBUMIN 4.3 g/dL (3.5-5.0); ALT/SGPT 26 U/L (21-72); AST/SGOT 41 U/L (17-59); BLOOD UREA NITROGEN 39 mg/dL (9-20); CALCIUM 9.4 mg/dl (8.6-10.4); GFR NON-AFRICAN AMERICAN 55
[2019-02-19 08:04] VITALS: TEMP 98.4; O2SAT 97
[2019-02-19] MEDS: (Novolog) Insulin Aspart, Recombinant 100 u/ml 10 ml vial SC SCH ×4 (08:28→12:00)
[2019-02-19] MEDS: Enoxaparin 40 mg Syringe SC SCH (09:24)
[2019-02-19 15:54] VITALS: BP 124/75; PULSE 59
--- NOTE | 2019-02-19 18:33 | CP.PCM.PN ---
Subjective - Date & Time of Evaluation Date of Evaluation: 02/19/19 Time of Evaluation: 11:00 - Subjective Subjective: alert, ambulatory, no acute distress. Objective - Vital Signs/Intake and Output Vital Signs (last 24 hours): Temp Pulse Resp BP Pulse Ox 98.4 F 59 L 20 124/75 97 02/19/19 15:50 02/19/19 15:50 02/19/19 15:50 02/19/19 15:50 02/19/19 15:50 Intake and Output: 02/19/19 02/19/19 06:59 18:59 Intake Total 500 500 Balance 500 500 - Labs Labs: 02/17/19 15:09 02/19/19 07:04 Assessment and Plan - Assessment and Plan (Free Text) Assessment: 68 year old male admitted with uncontrolled DM, seen and examined. Alert, oriented, denies sob or chest pains, NAD. Discussed with DR Crystal Lux, arranged home care and [facility] to follow up on the blood sugars and other medical needs. Discharged home today. Advised to follow up in the office in 1 week.
--- NOTE | 2019-02-19 18:37 | PCM.HF ---
Heart Failure Core Measure - Heart Failure Ejection Fraction: 40 % or Greater SWATHI Inhibitor Prescribed: Yes Beta-Coretta Prescribed: Carvedilol Angiotensin II Receptor Coretta Prescribed: No Contraindication/Reason for not providing: on swathi AnticoagulationTherapy for Atrial Fibrillation/Atrialflutter: No Contraindication/Reason for not providing: no afib Aldosterone Antagonist Prescribed: No Contraindication/Reason for not providing: EF >40% Hydralazine Nitrate Prescribed: No Contraindication/Reason for not providing: EF >40% Implantable Cardioverter Defibrillator Therapy: Yes Cardiac Resynchronization Therapy Prescribed: No Contraindication/Reason for not providing: not indicated - Follow up Will be discharged to: Home Follow Up Date (must be within 7 days from discharge): 02/24/19 Follow Up Time: 10:00
--- NOTE | 2019-02-19 22:54 | CP.PCM.DIS ---
Provider - Provider Date of Admission: 02/17/19 15:55 Attending physician: Deidre Lux MD Consults: 02/17/19 20:58 Endocrinology Consult Routine Comment: Consulting Provider: Selina Marie Consulting Physician: Selina Marie Reason for Consult: flucuating blood sugar 02/18/19 11:33 Case Management Referral Routine Comment: Physician Instructions: Reason For Exam: VNS/ PSYCH NURSE/ PT/OT HOME SAFETEY EVALUATION Reason for Referral: Discharge Planning Time Spent in preparation of Discharge (in minutes): 20 Diagnosis - Discharge Diagnosis (1) Failure to thrive Status: Acute (2) Uncontrolled diabetes mellitus Status: Acute (3) Acute ST elevation myocardial infarction (STEMI) Status: Chronic (4) Acute encephalopathy Status: Chronic Priority: High (5) Acute posterior epistaxis Status: Chronic (6) Adjustment disorder Status: Acute (7) CHF (congestive heart failure) Status: Acute (8) Chest pain Status: Acute (9) Congestive heart failure Status: Acute (10) Dyspnea Status: Acute (11) Dyspnea Status: Acute (12) Bronchitis Status: Chronic Hospital Course - Lab Results Lab Results: Most Recent Lab Values WBC 10.3 K/uL (4.8-10.8) 02/17/19 15:09 RBC 4.96 Mil/uL (4.40-5.90) 02/17/19 15:09 Hgb 13.0 g/dL (12.0-18.0) 02/17/19 15:09 Hct 40.5 % (35.0-51.0) 02/17/19 15:09 MCV 81.7 fL (80.0-94.0) 02/17/19 15:09 MCH 26.1 pg (27.0-31.0) L 02/17/19 15:09 MCHC 32.0 g/dL (33.0-37.0) L 02/17/19 15:09 RDW 16.5 % (11.5-14.5) H 02/17/19 15:09 Plt Count 174 K/uL (130-400) 02/17/19 15:09 MPV 9.3 fL (7.2-11.7) 02/17/19 15:09 Neut % (Auto) 75.8 % (50.0-75.0) H 02/17/19 15:09 Lymph % (Auto) 9.8 % (20.0-40.0) L 02/17/19 15:09 Scott % (Auto) 7.3 % (0.0-10.0) 02/17/19 15:09 Eos % (Auto) 6.1 % (0.0-4.0) H 02/17/19 15:09 Baso % (Auto) 1.0 % (0.0-2.0) 02/17/19 15:09 Neut # (Auto) 7.8 K/uL (1.8-7.0) H 02/17/19 15:09 Lymph # (Auto) 1.0 K/uL (1.0-4.3) 02/17/19 15:09 Scott # (Auto) 0.8 K/uL (0.0-0.8) 02/17/19 15:09 Eos # (Auto) 0.6 K/uL (0.0-0.7) 02/17/19 15:09 Baso # (Auto) 0.1 K/uL (0.0-0.2) 02/17/19 15:09 Neutrophils % (Manual) 74 % (50-75) 02/17/19 15:09 Band Neutrophils % 1 % (0-2) 02/17/19 15:09 Lymphocytes % (Manual) 8 % (20-40) L 02/17/19 15:09 Reactive Lymphs % 2 % (0-0) H 02/17/19 15:09 Monocytes % (Manual) 8 % (0-10) 02/17/19 15:09 Eosinophils % (Manual) 7 % (0-4) H 02/17/19 15:09 Platelet Estimate Normal (NORMAL) 02/17/19 15:09 Large Platelets Present 02/17/19 15:09 Anisocytosis (manual) Slight 02/17/19 15:09 Sodium 137 mmol/L (132-148) 02/19/19 07:04 Potassium 3.7 mmol/L (3.6-5.2) 02/19/19 07:04 Chloride 98 mmol/L (98-107) 02/19/19 07:04 Carbon Dioxide 29 mmol/L (22-30) 02/19/19 07:04 Anion Gap 14 (10-20) 02/19/19 07:04 BUN 39 mg/dL (9-20) H 02/19/19 07:04 Creatinine 1.3 mg/dL (0.8-1.5) 02/19/19 07:04 Est GFR ( Amer) > 60 02/19/19 07:04 Est GFR (Non-Af Amer) 55 02/19/19 07:04 POC Glucose (mg/dL) 122 mg/dL (65-110) H 02/19/19 16:30 Random Glucose 162 mg/dL (75-110) H 02/19/19 07:04 Hemoglobin A1c 15.5 % (4.2-6.5) H 02/18/19 06:17 Calcium 9.4 mg/dl (8.6-10.4) 02/19/19 07:04 Total Bilirubin 0.4 mg/dL (0.2-1.3) 02/19/19 07:04 AST 41 U/L (17-59) 02/19/19 07:04 ALT 26 U/L (21-72) 02/19/19 07:04 Alkaline Phosphatase 59 U/L (38-126) 02/19/19 07:04 Total Protein 7.1 g/dL (6.3-8.3) 02/19/19 07:04 Albumin 4.3 g/dL (3.5-5.0) 02/19/19 07:04 Globulin 2.8 gm/dL (2.2-3.9) 02/19/19 07:04 Albumin/Globulin Ratio 1.5 (1.0-2.1) 02/19/19 07:04 TSH 3rd Generation 1.64 mIU/L (0.46-4.68) 02/18/19 06:17 Urine Color Yellow (YELLOW) 02/17/19 15:59 Urine Clarity Clear (Clear) 02/17/19 15:59 Urine pH 5.5 (5.0-8.0) 02/17/19 15:59 Ur Specific [place] 1.015 (1.003-1.030) 02/17/19 15:59 Urine Protein Negative mg/dL (NEGATIVE) 02/17/19 15:59 Urine Glucose (UA) Negative mg/dL (Normal) 02/17/19 15:59 Urine Ketones Negative mg/dL (NEGATIVE) 02/17/19 15:59 Urine Blood Negative (NEGATIVE) 02/17/19 15:59 Urine Nitrate Negative (NEGATIVE) 02/17/19 15:59 Urine Bilirubin Negative (NEGATIVE) 02/17/19 15:59 Urine Urobilinogen 0.2 mg/dL (0.2-1.0) 02/17/19 15:59 Ur Leukocyte Esterase Negative [place]/uL (Negative) 02/17/19 15:59 Urine RBC (Auto) 1 /hpf (0-3) 02/17/19 15:59 Ur Squamous Epith Cells < 1 /hpf (0-5) 02/17/19 15:59 - Hospital Course Hospital Course: Patient advised to take the medications compliance encouraged patient refused subacute rehab patient's is again hospitalized patient told and given diabetic education at length to avoid readmissions patient understands it very well medications reconciliation is done early reports given to the patient's discussed with the patient's about the fingerstick and details of how insulin is to be taken patient understood it very well patient told any issues please call patient also advised to come to the office tomorrow that is if there is issue or patient advised to come to the office on Sunday in 48 hours at 3 PM Discharge Exam - Head Exam Head Exam: ATRAUMATIC, NORMAL INSPECTION, NORMOCEPHALIC - Eye Exam Eye Exam: EOMI, Normal appearance, PERRL - ENT Exam ENT Exam: Normal Exam - Neck Exam Neck exam: Full Rom - Respiratory Exam Respiratory Exam: Decreased Breath Sounds, Rales - Cardiovascular Exam Cardiovascular Exam: REGULAR RHYTHM, +S1, +S2 - GI/Abdominal Exam GI & Abdominal Exam: Diminished Bowel Sounds, Distended - Rectal Exam Rectal Exam: Deferred - Neurological Exam Neurological exam: Oriented x3 Discharge Plan - Follow Up Plan Condition: STABLE Disposition: HOME/ ROUTINE Instructions: Diabetes Exchange Diet, Diabetic Meal Planning , Failure to Thrive in an Older Adult (DC) Referrals: Alison Lux MD [Staff Provider] -
--- NOTE | 2019-02-19 23:59 | PN ---
DATE: 02/19/2019 ENDOCRINOLOGY FOLLOWUP NOTE LOCATION: Room . SUBJECTIVE: This is a 68-year-old male with recent uncontrolled type 2 insulin-requiring diabetes, presenting here with marked hyperglycemic acceleration and is now being followed closely for metabolic management. LABORATORY DATA: His glycemic values are fluctuating but improved, and the glucose values have ranged from 165 to 195 and 242 mg/dL. His chemistry showed a BUN of 39, sodium 137, potassium 3.7, chloride 98, CO2 of 29, glucose 162 and creatinine 1.3. ASSESSMENT: This is a 68-year-old male with uncontrolled and decompensated type 2 insulin-requiring diabetes with marked hyperglycemic accelerations related to a subtherapeutic insulin regimen and is now being followed closely for metabolic management. He also has diabetic microvascular complications of retinopathy, polyneuropathy and nephropathy as noted. PLAN OF MANAGEMENT: We will continue the modified basal and bolus insulin regimen to allow for dose equilibration and keeping on the same basal insulin given as Lantus at 34 units subcu at bedtime daily as given. We will continue the NovoLog given as 12 units t.i.d. before meals as noted. We will continue also the low-dose correction scale using NovoLog insulin as given to obviate hypoglycemia. We will obtain serial chemistries and supplement accordingly as needed. We will follow. Selina Marie MD
== END 2019-02-19 16:54 | disposition home or self-care (01) ==
LOC: C.ER 13:01 → C.3T 15:55
PROVIDERS: ADMIT Internal Medicine Nephrology; ATTEND Internal Medicine Nephrology
DX: E11.65 Type 2 diabetes mellitus with hyperglycemia (principal); R62.7 Adult failure to thrive; E11.22 Type 2 diabetes mellitus with diabetic chronic kidney disease; E11.21 Type 2 diabetes mellitus with diabetic nephropathy; E11.51 Type 2 diabetes mellitus with diabetic peripheral angiopathy without gangrene; E78.00 Pure hypercholesterolemia, unspecified; E86.0 Dehydration; G93.40 Encephalopathy, unspecified; I13.0 Hypertensive heart and chronic kidney disease with heart failure and stage 1 through stage 4 chronic kidney disease, or unspecified chronic kidney disease; I25.10 Atherosclerotic heart disease of native coronary artery without angina pectoris; I50.9 Heart failure, unspecified; I21.3 ST elevation (STEMI) myocardial infarction of unspecified site; N18.9 Chronic kidney disease, unspecified; J44.9 Chronic obstructive pulmonary disease, unspecified; Z95.0 Presence of cardiac pacemaker; R04.0 Epistaxis; F43.20 Adjustment disorder, unspecified; I69.351 Hemiplegia and hemiparesis following cerebral infarction affecting right dominant side
CPT/HCPCS: 36415; 80048; 80053; 81001; 82948; 83036; 84443; 85025; 99285; G0378; J1650